=== PATIENT | female | born 1945 | race Caucasian/White ===

== ENCOUNTER 2018-07-22 15:15 | Observation (INO) | payer MEDICAID ==
[~2018-07-22] VITALS: Ht 170.2 cm; Wt 76.4 kg
[~2018-07-22 15:15] MED LIST: ALB0.5V; ALB0.5V INH; ALBU17AE23; ALBU17AE3; ALBUTER; AMIT100T2 PO; ATOR40TA; ATOR40TA PO; AZIT-21; AZTH250C PO; CARB1DRO4; CHOL; CHOLESTIPOL; CLOP75TA PO; CMBV14.7IN; CODE118S2; CRS350T PO; CYCL10TA9; DIPH1TAB25 PO; DIPH1TAB45 PO; FENO145T2 PO; GABA600T PO; GBPN100C; GBPN300C; GNT.3OP5; HCT25T PO; HYDR-2854 PO; HYDR-34 PO; HYDR-3720 PO; HYDR1TAB PO; HYDR1TAB75 PO; HYDR1TAB86 PO; HYOS0.378; IRO; LISI10TA2 PO; LISINOPRIL; LNS30CCR; LORA0.5T PO; METO-354 PO; METO5TAB2; MORP30TA28 PO; MTC5T; NITR-65 PO; NITRO; NITROGLYCERIN; PERCOCET 10/325; PRD20T PO; PRD50T PO; PRED5DRO2I; PREG200C PO; PRM25T; PRM25T PO; PROM12.59; RT-COMBINH IH; SCR1T1; SCR1T1 PO; SUMA100T2 PO; TRAV0.004S; TRAV5DRO2; VALIUM; [UNRECOGNIZED DRUG - OTHER]
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
[2018-07-22 16:52] LABS: CLARITY,URINE CLEAR; COLOR,URINE DK YELLOW; GLUCOSE, URINE (UA) NEGATIVE (NEGATIVE); KETONES,URINE NEGATIVE (NEGATIVE); NITRITE,URINE NEGATIVE (NEGATIVE); PH,URINE 6.5 (5-9); PROTEIN,URINE NEGATIVE (NEGATIVE)
[2018-07-22 16:53] LABS: BILIRUBIN,URINE 1+ (NEGATIVE)
[2018-07-22 16:54] LABS: BACTERIA,URINE NEGATIVE /HPF; LEUKOCYTE ESTERASE ,URINE 2+ (NEGATIVE)
[2018-07-22 17:30] LABS: HEMATOCRIT 35 % (35-52); MEAN CORPUSCULAR HEMOGLOBIN 29 PG (25-34); MEAN CORPUSCULAR HGB CONC 32 G/DL (32-36); MEAN CORPUSCULAR VOLUME 91 FL (80-99); MEAN PLATELET VOLUME 9.7 FL (7.4-10.4); NEUTROPHILS % (AUTO) 72 % (42-75); PLATELET COUNT 223 10^3/uL (130-400); RED CELL DISTRIBUTION WIDTH 13.2 % (10.0-14.5)
[2018-07-22] MEDS ORDERED: cefTRIAXone 1,000 MG/2.86 ml vial (IM ONLY) IM ONE (17:30)
[2018-07-22] MEDS ORDERED: LIDOCAINE 1% INJ 20 ML 20 ML VIAL INJ ONE (17:30)
[2018-07-22 17:31] LABS: BASOPHILS # (AUTO) 0.1 10^3/uL (0.0-0.1); BASOPHILS % (AUTO) 1 % (0-10); EOSINOPHILS # (AUTO) 0.3 10^3/uL (0.0-0.3); EOSINOPHILS % (AUTO) 3 % (0-10); LYMPHOCYTES # (AUTO) 1.5 X 10^3 (1.0-4.0); LYMPHOCYTES % (AUTO) 16 % (12-44); MONOCYTES # (AUTO) 0.7 X 10^3 (0.0-1.0); MONOCYTES % (AUTO) 8 % (0-12); NEUTROPHILS # (AUTO) 6.5 X 10^3 (1.8-7.8)
[2018-07-22 17:52] LABS: BILIRUBIN,TOTAL 0.8 MG/DL (0.1-1.0); CALCIUM 8.8 MG/DL (8.5-10.1); CREATININE SERUM 0.98 MG/DL (0.60-1.30); POTASSIUM 4.2 MMOL/L (3.6-5.0)
[2018-07-22 17:53] LABS: ALBUMIN 3.5 GM/DL (3.2-4.5); TOTAL PROTEIN 6.5 GM/DL (6.4-8.2)
--- NOTE | 2018-07-22 18:37 | NUR ---
REPORT RECEIVED FROM TIO LEIGH AT [facility].
--- NOTE | 2018-07-22 18:40 | NUR ---
15 IV attempts on the patient. LU Somers was notified about the attempts from 2 RNs and Physician. IV access will have to be done in [place].
--- OUTSIDE RECORDS SUMMARY | 2018-07-22 18:45 | XMS REPORT | Clinical Summary ---
Author Author [facility] Organization [facility] Address Unknown Phone Unavailable Care Team Providers Care Hem Marker Name Role Phone PCP Unavailable Allergies Not on File Current Medications Not on file Active Problems Not on file Social History Tobacco Use Types Packs/Day Years Used Date Never Assessed Sex Assigned at Date Recorded Not on file Last Filed Vital Signs Not on file Plan of Treatment Not on file Results Not on filefrom Last 3 Months
--- OUTSIDE RECORDS SUMMARY | 2018-07-22 18:46 | XMS REPORT ---
Author Author Migration, Doctor Organization [facility] Address Unknown Phone Unavailable Care Team Providers Care Information Systems Director Name Role Phone Migration, Doctor Unavailable Unavailable PROBLEMS Type Condition ICD9-CM Code ZDA38-AA Code Onset Dates Condition Status SNOMED Code Problem Loss of weight 783.21 Active 173020201 Problem Unspecified arthropathy, site unspecified 716.90 Active 208128452 Problem Lumbago 724.2 Active 818697847 Problem Depressive disorder, not elsewhere classified 311 Active 61899790 Problem Other abnormal glucose 790.29 Active 058048889 Problem Anxiety state, unspecified 300.00 Active 077894978 Problem Chronic airway obstruction, not elsewhere classified 496 Active 80217669 Problem 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 877659673 Problem Unspecified essential hypertension 401.9 Active 08724365 Problem Migraine, unspecified without mention of intractable migraine without mention of status migrainosus 346.90 Active 06861366 ALLERGIES No Information ENCOUNTERS Encounter Location Date Diagnosis [facility], [place] [address] [address] Mar, [facility] [place] [address] [address] Feb, Arthropathy, unspecified M12.9 [facility], [place] [id number] [place] [address] Feb, [facility] [place] [id number] [place] [address] Jan, [facility] [place] [address] [address] Jan, [facility] [place] [address] [address] Jan, [facility] [place] [address] [address] Oct, 2014 [facility] [place] [facility] [address] [id number] [place] [address] 10 Oct, 2014 Lumbago 724.2 [facility] [place] [facility] [address] [id number] [place] [address] Oct, 2014 [facility] [place] [facility] [address] [id number] [place] [address] 08 Oct, 2014 [facility] [place] [facility] [address] [id number] [place] [address] 08 Oct, 2014 [facility] [place] [facility] [address] [id number] [place] [address] Oct, 2014 [facility] [place] [facility] [address] [id number] [place] [address] Oct, 2014 [facility] [place] [facility] [address] [id number] [place] [address] Oct, 2014 [facility] [place] [facility] [address] [id number] [place] [address] Sep, 2014 [facility] [place] [facility] [address] [id number] [place] [address] Sep, 2014 [facility] [place] [facility] [address] [id number] [place] [address] Aug, 2014 [facility] [place] [facility] [address] [id number] [place] [address] Aug, 2014 [facility] [place] [facility] [address] [id number] [place] [address] Aug, 2014 [facility] [place] [facility] [address] [id number] [place] [address] Aug, 2014 [facility] [place] [facility] [address] [id number] [place] [address] Aug, 2014 [facility] [place] [facility] [address] [id number] [place] [address] Aug2014 [facility] [place] [facility] [address] [facility] [id number], [place] [address] Jul, Unspecified arthropathy, site unspecified 716.90 [facility], [place] [id number] [address] Jul, [facility] [place] [id number], [place] [address] Jul, [facility] [place] [id number], [place] [address] June, Acute bronchitis 466.0 ; Unspecified arthropathy, site unspecified 716.90 and Chronic pain disorder 338.4 [facility], [place] [id number], [place] [address] June, [facility] [place] [id number], [place] [address] June, [facility] [place] [id number], [place] [address] June, [facility] [place] [id number], [place] [address] June, [facility] [place] [id number], [place] [address] May, [facility] [place] [address] [id number] [address] May, [facility], [place] [address] [id number], [place] [address] May, [facility] [address] [id number], [place] [address] Apr, [facility] [id number], [place] [address] Apr, [facility] [address] [id number], [place] [address] Apr, [facility] [place] [id number], [place] [address] 12 Apr, 2014 [facility] [place] [facility] [address] [id number] [place] [address] Apr, 2014 [facility] [place] [facility] [address] [id number] [place] [address] 10 Apr, 2014 [facility] [place] [facility] [address] [facility] [id number] [place] [address] Apr, 2014 [facility] [place] [facility] [address] [id number] [place] [address] Apr, [facility] [place] [facility] [address] [id number] [place] [address] 24 Mar, 2014 [facility] [place] [facility] [address] [facility] [id number] [place] [address] 24 Mar, 2014 [facility] [place] [facility] [address] [facility] [id number] [place] [address] 17 Mar, 2014 [facility] [place] [facility] [address] [facility] [id number] [place] [address] 17 Mar, 2014 [facility] [place] [facility] [address] [facility] [id number] [place] [address] 17 Mar, 2014 [facility] [place] [facility] [address] [facility] [id number] [place] [address] 17 Mar, 2014 [facility] [place] [facility] [address] [facility] [id number] [place] [address] 13 Mar, 2014 [facility] [place] [facility] [address] [facility] [id number] [place] [address] 13 Mar, 2014 [facility] [place] [facility] [address] [facility] [id number] [place] [address] 13 Mar, 2014 [facility] [place] [facility] [address] [facility] [id number] [place] [address] 13 Mar, 2014 [facility] [place] [facility] [address] [facility] [id number] [place] [address] Mar, [facility] [place] [facility] [address] [id number] [place] [address] Mar, [facility] [place] [facility] [address] [id number] [place] [address] Mar, [facility] [place] [facility] [address] [id number] [place] [address] Mar, [facility] [place] [facility] [address] [id number] [place] [address] Mar, [facility] [place] [facility] [address] [id number] [place] [address] Feb, [facility] [place] [facility] [address] [id number] [place] [address] Feb, [facility] [place] [facility] [address] [id number] [place] [address] Feb, [facility] [place] [facility] [address] [id number] [place] [address] Feb, [facility] [place] [facility] [address] [id number] [place] [address] Feb, [facility] [place] [facility] [address] [id number] [place] [address] Feb, [facility] [place] [facility] [address] [id number] [place] [address] Feb, [facility] [place] [facility] [address] [id number], [place] [address] Feb, [facility] [place] [facility] [address] [id number] [place] [address] Feb, [facility] [place] [facility] [address] [id number] [place] [address] Feb, [facility] [place] [facility] [address] [id number] [place] [address] Feb, [facility] [place] [facility] [address] [id number] [place] [address] Jan, [facility] [address] [id number] [place] [address] Jan, [facility] [address] [id number] [place] [address] 15 Jan, 2014 [facility] [address] [id number] [place] [address] 15 Jan, 2014 [facility] [address] [id number] [place] [address] 15 Jan, 2014 [facility] [address] [id number] [place] [address] Jan, [facility] [address] [id number] [place] [address] Jan, [facility] [address] [id number] [place] [address] Jan, [facility] [address] [id number] [place] [address] Jan, [facility] [address] [id number] [place] [address] Jan, [facility] [address] [id number] [place] [address] Jan, [facility] [place] [facility] [address] [id number] [place] [address] Jan, [facility] [place] [facility] [address] [id number] [place] [address] Jan, [facility] [place] [facility] [address] [id number] [place] [address] Jan, [facility] [place] [facility] [address] [id number] [place] [address] Jan, [facility] [place] [facility] [address] [id number] [place] [address] Dec, [facility] [place] [facility] [address] [id number] [place] [address] Dec, [facility] [place] [facility] [address] [id number] [place] [address] Dec, [facility] [place] [facility] [address] [id number] [place] [address] Dec, [facility] [place] [facility] [address] [id number] [place] [address] Dec, [facility] [place] [facility] [address] [id number] [place] [address] Dec, [facility] [place] [facility] [address] [id number] [place] [address] Dec, [facility] [place] [facility] [address] [id number] [place] [address] Dec, [facility] [place] [facility] [address] [id number] [place] [address] Dec, [facility] [place] [facility] [address] [id number] [place] [address] Dec, [facility] [place] [facility] [address] [id number] [place] [address] Dec, [facility] [place] [facility] [address] [id number] [place] [address] Dec, [facility] [place] [facility] [address] [id number], [place] [address] Dec, [facility] [place] [facility] [address] [id number] [place] [address] Dec, [facility] [place] [facility] [address] [id number] [place] [address] Dec, [facility] [place] [facility] [address] [id number], [place] [address] Dec, [facility] [place] [facility] [address] [id number], [place] [address] Dec, [facility] [place] [facility] [address] [id number] [place] [address] Dec, [facility] [place] [facility] [address] [id number] [place] [address] Dec, [facility] [place] [facility] [address] [id number] [place] [address] Dec, [facility] [place] [facility] [address] [id number] [place] [address] Nov, [facility] [place] [facility] [address] [id number] [place] [address] Nov, [facility] [place] [facility] [address] [id number] [place] [address] Nov, [facility] [place] [facility] [address] [id number] [place] [address] Nov, [facility] [place] [facility] [address] [id number] [place] [address] 15 Nov, 2013 [facility] [place] [facility] [address] [id number] [place] [address] Nov, [facility] [place] [facility] [address] [id number] [place] [address] Nov, [facility] [place] [facility] [address] [id number], [place] [address] Nov, [facility] [place] [facility] [address] [id number], [place] [address] Nov, [facility] [place] [facility] [address] [id number] [place] [address] Nov, [facility] [place] [facility] [address] [id number], [place] [address] Nov, [facility] [place] [facility] [address] [id number] [place] [address] Nov, [facility] [place] [facility] [address] [id number] [place] [address] 22 Oct, 2013 [facility] [place] [facility] [address] [id number] [place] [address] 22 Oct, 2013 [facility] [place] [facility] [address] [id number] [place] [address] 19 Oct, 2013 [facility] [place] [facility] [address] [id number] [place] [address] 19 Oct, 2013 [facility] [place] [facility] [address] [id number] [place] [address] 17 Oct, 2013 [facility] [place] [facility] [address] [id number] [place] [address] 17 Oct, 2013 [facility] [place] [facility] [address] [id number] [place] [address] 16 Oct, 2013 [facility] [place] [facility] [address] [id number] [place] [address] 16 Oct, 2013 [facility] [place] [facility] [address] [id number] [place] [address] Oct, 2013 [facility] [place] [facility] [address] [id number] [place] [address] Oct, 2013 [facility] [place] [facility] [address] [id number] [place] [address] Sep, [facility] [place] [facility] [address] [id number] [place] [address] Sep, [facility] [place] [facility] [address] [id number] [place] [address] Sep, [facility] [place] [facility] [address] [id number] [place] [address] Sep, [facility] [place] [facility] [address] [id number] [place] [address] Sep, [facility] [place] [facility] [address] [id number] [place] [address] Sep, [facility] [place] [facility] [address] [id number] [place] [address] Sep, [facility] [place] [facility] [address] [id number] [place] [address] Sep, [facility] [place] [facility] [address] [id number] [place] [address] Sep, [facility] [place] [facility] [address] [id number] [place] [address] Sep, [facility] [place] [facility] [address] [id number] [place] [address] Sep, [facility] [place] [facility] [address] [id number] [place] [address] Sep, [facility] [place] [facility] [address] [id number] [place] [address] Sep, [facility] [place] [facility] [address] [id number] [place] [address] Sep, [facility] [place] [facility] [address] [id number] [place] [address] Aug, [facility] [place] [facility] [address] [id number] [place] [address] Aug, [facility] [place] [facility] [address] [id number] [place] [address] Aug, [facility] [place] [facility] [address] [id number] [place] [address] Aug, [facility] [place] [facility] [address] [id number] [place] [address] Aug, [facility] [place] [facility] [address] [id number] [place] [address] Aug, [facility] [place] [facility] [address] [id number] [place] [address] Aug, [facility] [place] [facility] [address] [id number] [place] [address] Aug, [facility] [place] [facility] [address] [id number] [place] [address] Aug, [facility] [place] [facility] [address] [id number] [place] [address] Aug, [facility] [place] [facility] [address] [id number] [place] [address] Aug, [facility] [place] [facility] [address] [id number] [place] [address] Jul, [facility] [place] [facility] [address] [id number] [place] [address] Jul, [facility] [place] [facility] [address] [id number] [place] [address] Jul, [facility] [place] [facility] [address] [id number] [place] [address] Jul, [facility] [place] [facility] [address] [id number] [place] [address] Jul, [facility] [place] [facility] [address] [id number] [place] [address] Jul, [facility] [place] [facility] [address] [id number] [place] [address] Jul, [facility] [place] [facility] [address] [id number] [place] [address] Jul, [facility] [place] [facility] [address] [id number] [place] [address] Jul, [facility] [place] [facility] [address] [id number] [place] [address] Jul, [facility] [place] [facility] [address] [id number] [place] [address] June, [facility] [place] [facility] [address] [id number] [place] [address] June, [facility] [place] [facility] [address] [id number] [place] [address] June, [facility] [address] [id number] [place] [address] June, [facility] [place] [facility] [address] [id number] [place] [address] June, [facility] [place] [facility] [address] [id number] [place] [address] June, [facility] [address] [id number] [place] [address] June, [facility] [place] [facility] [address] [id number] [place] [address] June, [facility] [address] [id number] [place] [address] June, [facility] [address] [id number] [place] [address] June, [facility] [address] [id number] [place] [address] June, [facility] [place] [facility] [address] [id number] [place] [address] June, [facility] [place] [facility] [address] [id number] [place] [address] June, [facility] [place] [facility] [address] [id number] [place] [address] June, [facility] [place] [facility] [address] [id number] [place] [address] June, [facility] [place] [facility] [address] [id number] [place] [address] June, [facility] [place] [facility] [address] [id number] [place] [address] June, [facility] [place] [facility] [address] [id number] [place] [address] May, [facility] [place] [facility] [address] [id number] [place] [address] May, [facility] [place] [facility] [address] [id number] [place] [address] May, [facility] [place] [facility] [address] [id number] [place] [address] May, [facility] [place] [facility] [address] [id number] [place] [address] May, [facility] [place] [facility] [address] [id number] [place] [address] May, [facility] [place] [facility] [address] [id number] [place] [address] May, [facility] [place] [facility] [address] [id number] [place] [address] May, [facility] [place] [facility] [address] [id number] [place] [address] May, [facility] [place] [facility] [address] [id number] [place] [address] May, [facility] [place] [facility] [address] [id number] [place] [address] Apr, [facility] [place] [facility] [address] [id number] [place] [address] Apr, [facility] [place] [facility] [address] [id number] [place] [address] Apr, [facility] [place] [facility] [address] [id number] [place] [address] Apr, [facility] [place] [facility] [address] [id number] [place] [address] Apr, [facility] [place] [facility] [address] [id number] [place] [address] Apr, [facility] [place] [facility] [address] [id number] [place] [address] 13 Apr, 2013 [facility] [place] [facility] [address] [id number] [place] [address] 13 Apr, 2013 [facility] [place] [facility] [address] [id number] [place] [address] 07 Apr, 2013 [facility] [place] [facility] [address] [id number] [place] [address] Apr, [facility] [place] [facility] [address] [id number] [place] [address] Mar, [facility] [place] [facility] [address] [id number] [place] [address] Mar, [facility] [place] [facility] [address] [facility] [id number] [place] [address] Mar, [facility] [place] [facility] [address] [id number] [place] [address] Mar, [facility] [place] [facility] [address] [id number] [place] [address] Mar, [facility] [place] [facility] [address] [facility] [id number] [place] [address] Mar, [facility] [place] [facility] [address] [facility] [id number] [place] [address] Mar, [facility] [place] [facility] [address] [facility] [id number] [place] [address] Mar, [facility] [place] [facility] [address] [facility] [id number] [place] [address] Mar, [facility] [place] [facility] [address] [id number] [place] [address] Mar, [facility] [place] [facility] [address] [facility] [id number] [place] [address] 07 Mar, 2013 [facility] [place] [facility] [address] [facility] [id number] [place] [address] Mar, [facility] [address] [id number] [place] [address] Mar, [facility] [place] [facility] [address] [id number] [place] [address] Feb, [facility] [place] [facility] [address] [id number] [place] [address] Feb, [facility] [place] [facility] [address] [id number] [place] [address] Feb, [facility] [place] [facility] [address] [id number] [place] [address] Feb, [facility] [place] [facility] [address] [id number] [place] [address] Feb, [facility] [place] [facility] [address] [id number] [place] [address] Feb, [facility] [place] [facility] [address] [id number] [place] [address] Feb, [facility] [place] [facility] [address] [id number] [place] [address] Feb, [facility] [place] [facility] [address] [id number] [place] [address] Feb, [facility] [place] [facility] [address] [id number] [place] [address] Feb, [facility] [place] [facility] [address] [id number] [place] [address] Jan, [facility] [place] [facility] [address] [id number] [place] [address] Jan, [facility] [place] [facility] [address] [id number] [place] [address] Jan, [facility] [place] [facility] [address] [id number] [place] [address] Jan, [facility] [place] [facility] [address] [id number] [place] [address] Jan, [facility] [address] [id number] [place] [address] Jan, [facility] [place] [facility] [address] [id number] [place] [address] Jan, [facility] [address] [id number] [place] [address] Jan, [facility] [place] [facility] [address] [id number] [place] [address] Jan, [facility] [address] [id number] [place] [address] Jan, [facility] [place] [facility] [address] [id number] [place] [address] Jan, [facility] [place] [facility] [address] [id number] [place] [address] Jan, [facility] [address] [id number] [place] [address] Jan, [facility] [place] [facility] [address] [id number] [place] [address] Jan, [facility] [place] [facility] [address] [id number] [place] [address] Jan, [facility] [place] [facility] [address] [id number] [place] [address] Jan, [facility] [place] [facility] [address] [id number] [place] [address] Dec, [facility] [place] [facility] [address] [id number] [place] [address] Dec, [facility] [place] [facility] [address] [id number] [place] [address] Dec, [facility] [place] [facility] [address] [id number] [place] [address] Dec, [facility] [place] [facility] [address] [id number] [place] [address] 15 Dec, 2012 [facility] [place] [facility] [address] [id number] [place] [address] 15 Dec, 2012 [facility] [place] [facility] [address] [id number] [place] [address] Dec, [facility] [place] [facility] [address] [id number] [place] [address] Dec, [facility] [place] [facility] [address] [id number] [place] [address] Dec, [facility] [place] [facility] [address] [id number] [place] [address] Dec, [facility] [place] [facility] [address] [id number] [place] [address] Nov, [facility] [place] [facility] [address] [id number], [place] [address] 30 Nov, 2012 [facility] [place] [facility] [address] [id number] [place] [address] Nov, [facility] [place] [facility] [address] [id number], [place] [address] Nov, [facility] [place] [facility] [address] [id number], [place] [address] 18 Nov, 2012 [facility] [place] [facility] [address] [id number], [place] [address] 18 Nov, 2012 [facility] [place] [facility] [address] [id number] [place] [address] 14 Nov, 2012 [facility] [place] [facility] [address] [id number], [place] [address] 14 Nov, 2012 [facility] [place] [facility] [address] [id number], [place] [address] 09 Nov, 2012 [facility] [place] [facility] [address] [id number] [place] [address] 09 Nov, 2012 [facility] [address] [id number] [place] [address] 07 Nov, 2012 [facility] [place] [facility] [address] [id number] [place] [address] 05 Nov, 2012 [facility] [place] [facility] [address] [id number] [place] [address] 20 Oct, 2012 [facility] [place] [facility] [address] [id number] [place] [address] 20 Oct, 2012 [facility] [place] [facility] [address] [id number] [place] [address] 19 Oct, 2012 [facility] [place] [facility] [address] [id number] [place] [address] 18 Oct, 2012 [facility] [address] [id number] [place] [address] 13 Oct, 2012 [facility] [place] [facility] [address] [id number] [place] [address] 05 Oct, 2012 [facility] [place] [facility] [address] [id number] [place] [address] 04 Oct, 2012 [facility] [place] [facility] [address] [id number] [place] [address] 28 Sep, 2012 [facility] [place] [facility] [address] [id number] [place] [address] Sep, [facility] [place] [facility] [address] [id number] [place] [address] Sep, [facility] [place] [facility] [address] [id number] [place] [address] Sep, [facility] [place] [facility] [address] [id number] [place] [address] Sep, [facility] [place] [facility] [address] [id number] [place] [address] 08 Sep, 2012 [facility] [place] [facility] [address] [id number] [place] [address] Sep, [facility] [place] [facility] [address] [id number] [place] [address] Aug, [facility] [place] [facility] [address] [id number] [place] [address] Aug, [facility] [place] [facility] [address] [id number] [place] [address] Aug, [facility] [place] [facility] [address] [id number] [place] [address] Aug, [facility] [place] [facility] [address] [id number] [place] [address] Aug, [facility] [place] [facility] [address] [id number] [place] [address] Aug, [facility] [place] [facility] [address] [id number] [place] [address] Aug, [facility] [place] [facility] [address] [id number] [place] [address] Aug, [facility] [place] [facility] [address] [id number] [place] [address] Aug, [facility] [place] [facility] [address] [id number] [place] [address] Jul, [facility] [place] [facility] [address] [id number] [place] [address] Jul, [facility] [place] [facility] [address] [id number] [place] [address] Jul, [facility] [place] [facility] [address] [id number] [place] [address] Jul, [facility] [place] [facility] [address] [id number] [place] [address] Jul, [facility] [place] [facility] [address] [id number] [place] [address] Jul, [facility] [address] [id number] [place] [address] Jul, [facility] [address] [id number] [place] [address] June, [facility] [address] [id number] [place] [address] June, [facility] [address] [id number] [place] [address] June, [facility] [address] [id number] [place] [address] June, [facility] [address] [id number] [place] [address] June, [facility] [address] [id number] [place] [address] June, [facility] [address] [id number] [place] [address] June, [facility] [address]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
--- OUTSIDE RECORDS SUMMARY | 2018-07-22 18:46 | XMS REPORT | Clinical Summary ---
Author Author [facility] Organization [facility] Address Unknown Phone Unavailable Care Team Providers Care Photogrammetric Stereo Compiler Name Role Phone Molly Rossi RN Unavailable Unavailable Dino French MD Unavailable Unavailable Kelsey Collins MD Unavailable Gabbi Manley PA-C Unavailable Santiago Concepcion DO Unavailable Unavailable Edis Richard MD PCP Chinedu Holland PHYS ASST Unavailable Source Comments Some departments are not documenting in the electronic medical record. If you d o not see the information that you expected, contact Release of Information in [facility] Information Management department at [phone] for further assistan ce in locating additional records.[facility] Allergies Comments Active Allergy Reactions Severity Noted Date Aspirin STOMACH 11/02/2009 UPSET, NAUSEA AND VOMITING Throat swelling Jsvmwj-Lxnlrqwn-Ptyoblk ANAPHYLAXIS 03/08/2009 Pregabalin SHORTNESS OF Medium 09/13/2015 BREATH Bleeding in the stomach Nsaids (Non-Steroidal SEE COMMENTS 03/08/2009 Anti-Inflammatory Drug) Pt states she has "a violent reaction" to this medication but she is not sure what the reaction is. Penicillins UNKNOWN Low 03/08/2009 Sulfa (Sulfonamide HIVES 03/08/2009 Antibiotics) Throat swelling Tramadol ANAPHYLAXIS 03/08/2009 Throat swelling Trazodone ANAPHYLAXIS 03/08/2009 Rofecoxib SHORTNESS OF 03/08/2009 BREATH, SYNCOPE Medications End Date Status Medication Sig Dispensed Refills Start Date Active promethazine (PHENERGAN) Take 25 mg by 0 25 mg tablet mouth three times daily as needed for Nausea. Active albuterol (PROVENTIL; Inhale 1 Puff 0 VENTOLIN) 90 by mouth As mcg/Actuation IN inhaler Needed for Wheezing. Active sumatriptan (IMITREX) 100 Take 100 mg 0 mg PO tablet by mouth daily as needed for Migraine symptoms. (max dose of 200mg per day) Active clopiDOGrel (PLAVIX) 75 Take 75 mg by 0 mg tablet mouth daily. Active diphenoxylate/atropine Take 2 Tabs 0 (LOMOTIL) 2.5/0.025 mg by mouth four tablet times daily as needed for Diarrhea. Active pantoprazole DR Take 40 mg by 0 (PROTONIX) 40 mg tablet mouth daily. Active cetirizine (ZYRTEC) 10 mg Take 10 mg by 0 tablet mouth daily as needed. Active gabapentin (NEURONTIN) Take 600 mg 0 300 mg capsule by mouth three times daily. Active hydrOXYzine (ATARAX) 25 Take 25 mg by 0 mg tablet mouth four times daily as needed for Itching. Active nitroglycerin Take 1 [place] 0 (NITROLINGUAL) 400 by mouth mcg/spray translingual every 5 spray minutes as needed. Active LORazepam (ATIVAN) 1 mg Take 1/2 0 tablet tablet in morning and 1 tablet in evening Active albuterol 0.5% Inhale 2.5 mg 0 (PROVENTIL; VENTOLIN) 2.5 solution by mg/0.5 mL nebu nebulizer nebulizer as solution directed every 6 hours as needed. Active lisinopril (PRINIVIL; Take 1 Tab by 0 ZESTRIL) 10 mg tablet mouth daily. 6 Active acetaminophen (TYLENOL) Take 2 Tabs 0 325 mg tablet by mouth four 6 times daily. AFTER one week taking it as scheduled, you may transition to use as needed. Do not take more than 4 grams (4,000 mg) in 24 hours. Active oxyCODONE (ROXICODONE, Take 1-2 Tabs 50 Tab 0 OXY-IR) 5 mg by mouth 6 tabletIndications: Hip every 4 hours joint replacement status as needed for Pain Earliest Fill Date: 12/06/15 Active prednisone (DELTASONE) 20 0 07/04/201 mg tablet 7 Active LEVOFLOXACIN (LEVAQUIN Take by 0 PO) mouth. Active Problems Problem Noted Date TMJ arthritis 07/11/2016 Meniere disease 07/11/2016 Hearing loss, neural 07/11/2016 Migraine 10/26/2015 Anxiety 10/26/2015 Back pain 10/26/2015 GERD (gastroesophageal reflux disease) 10/26/2015 Hip pain 10/26/2015 HTN (hypertension) 10/26/2015 Asthma 10/26/2015 Degenerative joint disease (DJD) of hip 10/26/2015 Status post total replacement of left hip 10/26/2015 Pre-operative clearance 06/09/2015 Hyperlipidemia 06/09/2015 Essential hypertension with goal blood pressure less than 140/90 06/09/2015 Angina pectoris, unspecified 06/09/2015 Cervical spinal stenosis 11/30/2009 Family History Medical History Relation Name Comments Cancer Brother Diabetes Brother Heart Attack Brother Hypertension Brother Heart Attack Father Hypertension Father Cancer Maternal Aunt Diabetes Maternal Aunt Heart Attack Maternal Grandfather Hypertension Maternal Grandfather Arthritis-osteo Maternal Grandmother Diabetes Maternal Grandmother Cancer Maternal Uncle Cancer Mother Diabetes Mother Arthritis-osteo Sister Arthritis-rheumatoid Sister Diabetes Sister Osteoporosis Sister Relation Name Status Comments Brother Father Maternal Aunt Maternal Grandfather Maternal Grandmother Maternal Uncle Mother Sister Social History Date Tobacco Use Types Packs/Day Years Used Never Smoker Smokeless Tobacco: Never Used Tobacco Cessation: Counseling Given: Yes Alcohol Use Drinks/Week oz/Week Comments Yes 0 Standard 0.0 drinks or equivalent Sex Assigned at Date Recorded Not on file Industry Job Start Date Occupation Not on file Not on file Not on file Travel End Travel History Travel Start No recent travel history available. 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 Respiratory Rate 16 03/08/2016 10:46 AM HEALTH ADMINISTRATOR Oxygen Saturation 100% - Inhaled Oxygen - Concentration 07/11/2016 1:44 PM CDT Weight 64.5 kg (142 lb 3.2 oz) 07/11/2016 1:44 PM CDT Height 170.2 cm (5' 7") 07/11/2016 1:44 PM CDT Body Mass Index 22.27 Plan of Treatment Health Maintenance Due Date Last Done Comments HEPATITIS C SCREENING 1944 PHYSICAL (COMPREHENSIVE) 09/22/1951 EXAM DTAP/TDAP VACCINES (1 - 1962 Tdap) BREAST CANCER SCREENING 1984 COLORECTAL CANCER 1994 SCREENING SHINGLES RECOMBINANT 1994 VACCINE (1 of 2) OSTEOPOROSIS 2009 SCREENING/MONITORING PNEUMONIA (PCV13/PPSV23) 2009 VACCINES (1 of 2 - PCV13) INFLUENZA VACCINE 11/10/2018 Implants Device Identifier Shelf Expiration Date Model / Serial / Lot Implanted Type Area Manufactur er 07/10/2025 [id number] / [id number] / [id number] Eliminator Hole Duraloc [place] Left: Hip JandJ:DEPU Hip [place] Positive Stop Y:DEPUY Implanted: Qty: 1 on 10/26/2015 by Kelsey Mcarthur MD 07/10/2020 [id number] / [id number] / [id number] Insert Acetabular 52mm 36mm +4mm Left: Hip JandJ:DEPU Neutral Altrx [place] Y:DEPUY Implanted: Qty: 1 on 10/26/2015 by Kelsey Mcarthur MD 07/10/2025 [id number] / [id number] / [id number] Shell Acetabular 52mm Hip Sector Left: Hip JandJ:DEPU [place] Y:DEPUY Implanted: Qty: 1 on 10/26/2015 by Kelsey Mcarthur MD 03/12/2025 [id number] / 1217-25-500 / [id number] Screw Acetabular 25mm 6.5mm D[place] 4 Left: Hip JandJ:DEPU Point Cut Flute Hip Y:DEPUY Implanted: Qty: 1 on 10/26/2015 by Kelsey Mcarthur MD 09/09/2025 [id number] / 1570-01-120 / [id number] Stem Femoral Cementless [place] Left: Hip JandJ:DEPU [place] 6 01/23 Standard Y:DEPUY Implanted: Qty: 1 on 10/26/2015 by ORTHOPEDIC Kelsey Collins MD 07/10/2020 [id number] / 1365-51-000 / [id number] Head Femoral +1.5mm 01/23 Taper Left: Hip JandJ:DEPU 36mm Hip Cementless No Skirt Y:DEPUY Implanted: Qty: 1 on 10/26/2015 by ORTHOPEDIC Kelsey Collins MD Results Not on filefrom Last 3 Months Advance Directives Patient has advance care planning documents, and code status on file. For more i nformation, please contact: [address] [id number] Date Inactivated Comments Code Status Date Activated 10/31/2015 9:55 PM Full Code 10/26/2015 10:20 PM Provider has discussed Code Status No, discussion not w/Patient or Family? necessary based on Dx 11/25/2009 4:42 PM Full Code 11/23/2009 6:47 PM
--- OUTSIDE RECORDS SUMMARY | 2018-07-22 18:47 | XMS REPORT ---
Author Author Migration, Doctor Organization [facility] Address Unknown Phone Unavailable Care Team Providers Care Chain Dyer Name Role Phone Migration, Doctor Unavailable Unavailable PROBLEMS Type Condition ICD9-CM Code VIN86-DB Code Onset Dates Condition Status SNOMED Code Problem Loss of weight 783.21 Active 655076905 Problem Unspecified arthropathy, site unspecified 716.90 Active 474557927 Problem Lumbago 724.2 Active 518619008 Problem Depressive disorder, not elsewhere classified 311 Active 90507866 Problem Other abnormal glucose 790.29 Active 024068779 Problem Anxiety state, unspecified 300.00 Active 550944884 Problem Chronic airway obstruction, not elsewhere classified 496 Active 89612188 Problem 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 674131282 Problem Unspecified essential hypertension 401.9 Active 92096610 Problem Migraine, unspecified without mention of intractable migraine without mention of status migrainosus 346.90 Active 83808572 ALLERGIES No Information ENCOUNTERS Encounter Location Date Diagnosis [facility] [address] [address] Mar, [facility] [address] [address] Feb, Arthropathy, unspecified M12.9 [facility] [id number] [place] [address] Feb, [facility] [id number] [place] [address] Jan, [facility] [address] [address] Jan, [facility] [address] [address] Jan, [facility] [address] [address] Oct, 2014 [facility] [place] [facility] [address] [id number] [place] [address] 10 Oct, 2014 Lumbago 724.2 [facility] [place] [facility] [address] [id number] [place] [address] Oct, 2014 [facility] [place] [facility] [address] [id number] [place] [address] 08 Oct, 2014 [facility] [place] [facility] [address] [id number] [place] [address] 08 Oct, 2014 [facility] [place] [facility] [address] [id number] [place] [address] Oct, 2014 [facility] [place] [facility] [address] [id number] [place] [address] Oct, 2014 [facility] [place] [facility] [address] [id number] [place] [address] Oct, 2014 [facility] [place] [facility] [address] [id number] [place] [address] Sep, 2014 [facility] [place] [facility] [address] [id number] [place] [address] Sep, 2014 [facility] [place] [facility] [address] [id number] [place] [address] Aug, 2014 [facility] [place] [facility] [address] [id number] [place] [address] Aug, 2014 [facility] [place] [facility] [address] [id number] [place] [address] Aug, 2014 [facility] [place] [facility] [address] [id number] [place] [address] Aug, 2014 [facility] [place] [facility] [address] [id number] [place] [address] Aug, 2014 [facility] [place] [facility] [address] [id number] [place] [address] Aug2014 [facility] [place] [facility] [address] [facility] [id number] [address] Jul, Unspecified arthropathy, site unspecified 716.90 [facility] [address] [address] Jul, [facility] [address] [address] Jul, [facility] [address] [address] June, Acute bronchitis 466.0 ; Unspecified arthropathy, site unspecified 716.90 and Chronic pain disorder 338.4 [facility] [address] [address] June, [facility] [address] [address] June, [facility] [address] [address] June, [facility] [address] [address] June, [facility] [address] [address] May, [facility] [address] [id number] [address] May, [facility] [address] [id number] [address] May, [facility] [address] [id number] [address] Apr, [facility] [address] [address] Apr, [facility] [address] [id number] [address] Apr, [facility] [address] [address] 12 Apr, 2014 [facility] [place] [facility] [address] [id number] [place] [address] Apr, 2014 [facility] [place] [facility] [address] [id number] [place] [address] 10 Apr, 2014 [facility] [place] [facility] [address] [facility] [id number] [place] [address] Apr, 2014 [facility] [place] [facility] [address] [id number] [place] [address] Apr, [facility] [place] [facility] [address] [id number] [place] [address] 24 Mar, 2014 [facility] [place] [facility] [address] [facility] [id number] [place] [address] 24 Mar, 2014 [facility] [place] [facility] [address] [facility] [id number] [place] [address] 17 Mar, 2014 [facility] [place] [facility] [address] [facility] [id number] [place] [address] 17 Mar, 2014 [facility] [place] [facility] [address] [facility] [id number] [place] [address] 17 Mar, 2014 [facility] [place] [facility] [address] [facility] [id number] [place] [address] 17 Mar, 2014 [facility] [place] [facility] [address] [facility] [id number] [place] [address] 13 Mar, 2014 [facility] [place] [facility] [address] [facility] [id number] [place] [address] 13 Mar, 2014 [facility] [place] [facility] [address] [facility] [id number] [place] [address] 13 Mar, 2014 [facility] [place] [facility] [address] [facility] [id number] [place] [address] 13 Mar, 2014 [facility] [place] [facility] [address] [facility] [id number] [place] [address] Mar, [facility] [place] [facility] [address] [id number] [place] [address] Mar, [facility] [place] [facility] [address] [id number] [place] [address] Mar, [facility] [place] [facility] [address] [id number] [place] [address] Mar, [facility] [place] [facility] [address] [id number] [place] [address] Mar, [facility] [place] [facility] [address] [id number] [place] [address] Feb, [facility] [place] [facility] [address] [id number] [place] [address] Feb, [facility] [place] [facility] [address] [id number] [place] [address] Feb, [facility] [place] [facility] [address] [id number] [place] [address] Feb, [facility] [place] [facility] [address] [id number] [place] [address] Feb, [facility] [place] [facility] [address] [id number] [place] [address] Feb, [facility] [place] [facility] [address] [id number] [place] [address] Feb, [facility] [place] [facility] [address] [id number] [address] Feb, [facility] [place] [facility] [address] [id number] [place] [address] Feb, [facility] [place] [facility] [address] [id number] [place] [address] Feb, [facility] [place] [facility] [address] [id number] [place] [address] Feb, [facility] [place] [facility] [address] [id number] [place] [address] Jan, [facility] [address] [id number] [place] [address] Jan, [facility] [address] [id number] [place] [address] 15 Jan, 2014 [facility] [address] [id number] [place] [address] 15 Jan, 2014 [facility] [address] [id number] [place] [address] 15 Jan, 2014 [facility] [address] [id number] [place] [address] Jan, [facility] [address] [id number] [place] [address] Jan, [facility] [address] [id number] [place] [address] Jan, [facility] [address] [id number] [place] [address] Jan, [facility] [address] [id number] [place] [address] Jan, [facility] [address] [id number] [place] [address] Jan, [facility] [place] [facility] [address] [id number] [place] [address] Jan, [facility] [place] [facility] [address] [id number] [place] [address] Jan, [facility] [place] [facility] [address] [id number] [place] [address] Jan, [facility] [place] [facility] [address] [id number] [place] [address] Jan, [facility] [place] [facility] [address] [id number] [place] [address] Dec, [facility] [place] [facility] [address] [id number] [place] [address] Dec, [facility] [place] [facility] [address] [id number] [place] [address] Dec, [facility] [place] [facility] [address] [id number] [place] [address] Dec, [facility] [place] [facility] [address] [id number] [place] [address] Dec, [facility] [place] [facility] [address] [id number] [place] [address] Dec, [facility] [place] [facility] [address] [id number] [place] [address] Dec, [facility] [place] [facility] [address] [id number] [place] [address] Dec, [facility] [place] [facility] [address] [id number] [place] [address] Dec, [facility] [place] [facility] [address] [id number] [place] [address] Dec, [facility] [place] [facility] [address] [id number] [place] [address] Dec, [facility] [place] [facility] [address] [id number] [place] [address] Dec, [facility] [place] [facility] [address] [id number] [address] Dec, [facility] [place] [facility] [address] [id number] [place] [address] Dec, [facility] [place] [facility] [address] [id number] [place] [address] Dec, [facility] [place] [facility] [address] [id number] [address] Dec, [facility] [place] [facility] [address] [id number] [address] Dec, [facility] [place] [facility] [address] [id number] [place] [address] Dec, [facility] [place] [facility] [address] [id number] [place] [address] Dec, [facility] [place] [facility] [address] [id number] [place] [address] Dec, [facility] [place] [facility] [address] [id number] [place] [address] Nov, [facility] [place] [facility] [address] [id number] [place] [address] Nov, [facility] [place] [facility] [address] [id number] [place] [address] Nov, [facility] [place] [facility] [address] [id number] [place] [address] Nov, [facility] [place] [facility] [address] [id number] [place] [address] 15 Nov, 2013 [facility] [place] [facility] [address] [id number] [place] [address] Nov, [facility] [place] [facility] [address] [id number] [place] [address] Nov, [facility] [place] [facility] [address] [id number] [address] Nov, [facility] [place] [facility] [address] [id number] [address] Nov, [facility] [place] [facility] [address] [id number] [place] [address] Nov, [facility] [place] [facility] [address] [id number] [address] Nov, [facility] [place] [facility] [address] [id number] [place] [address] Nov, [facility] [place] [facility] [address] [id number] [place] [address] 22 Oct, 2013 [facility] [place] [facility] [address] [id number] [place] [address] 22 Oct, 2013 [facility] [place] [facility] [address] [id number] [place] [address] 19 Oct, 2013 [facility] [place] [facility] [address] [id number] [place] [address] 19 Oct, 2013 [facility] [place] [facility] [address] [id number] [place] [address] 17 Oct, 2013 [facility] [place] [facility] [address] [id number] [place] [address] 17 Oct, 2013 [facility] [place] [facility] [address] [id number] [place] [address] 16 Oct, 2013 [facility] [place] [facility] [address] [id number] [place] [address] 16 Oct, 2013 [facility] [place] [facility] [address] [id number] [place] [address] Oct, 2013 [facility] [place] [facility] [address] [id number] [place] [address] Oct, 2013 [facility] [place] [facility] [address] [id number] [place] [address] Sep, [facility] [place] [facility] [address] [id number] [place] [address] Sep, [facility] [place] [facility] [address] [id number] [place] [address] Sep, [facility] [place] [facility] [address] [id number] [place] [address] Sep, [facility] [place] [facility] [address] [id number] [place] [address] Sep, [facility] [place] [facility] [address] [id number] [place] [address] Sep, [facility] [place] [facility] [address] [id number] [place] [address] Sep, [facility] [place] [facility] [address] [id number] [place] [address] Sep, [facility] [place] [facility] [address] [id number] [place] [address] Sep, [facility] [place] [facility] [address] [id number] [place] [address] Sep, [facility] [place] [facility] [address] [id number] [place] [address] Sep, [facility] [place] [facility] [address] [id number] [place] [address] Sep, [facility] [place] [facility] [address] [id number] [place] [address] Sep, [facility] [place] [facility] [address] [id number] [place] [address] Sep, [facility] [place] [facility] [address] [id number] [place] [address] Aug, [facility] [place] [facility] [address] [id number] [place] [address] Aug, [facility] [place] [facility] [address] [id number] [place] [address] Aug, [facility] [place] [facility] [address] [id number] [place] [address] Aug, [facility] [place] [facility] [address] [id number] [place] [address] Aug, [facility] [place] [facility] [address] [id number] [place] [address] Aug, [facility] [place] [facility] [address] [id number] [place] [address] Aug, [facility] [place] [facility] [address] [id number] [place] [address] Aug, [facility] [place] [facility] [address] [id number] [place] [address] Aug, [facility] [place] [facility] [address] [id number] [place] [address] Aug, [facility] [place] [facility] [address] [id number] [place] [address] Aug, [facility] [place] [facility] [address] [id number] [place] [address] Jul, [facility] [place] [facility] [address] [id number] [place] [address] Jul, [facility] [place] [facility] [address] [id number] [place] [address] Jul, [facility] [place] [facility] [address] [id number] [place] [address] Jul, [facility] [place] [facility] [address] [id number] [place] [address] Jul, [facility] [place] [facility] [address] [id number] [place] [address] Jul, [facility] [place] [facility] [address] [id number] [place] [address] Jul, [facility] [place] [facility] [address] [id number] [place] [address] Jul, [facility] [place] [facility] [address] [id number] [place] [address] Jul, [facility] [place] [facility] [address] [id number] [place] [address] Jul, [facility] [place] [facility] [address] [id number] [place] [address] June, [facility] [place] [facility] [address] [id number] [place] [address] June, [facility] [place] [facility] [address] [id number] [place] [address] June, [facility] [address] [id number] [place] [address] June, [facility] [place] [facility] [address] [id number] [place] [address] June, [facility] [place] [facility] [address] [id number] [place] [address] June, [facility] [address] [id number] [place] [address] June, [facility] [place] [facility] [address] [id number] [place] [address] June, [facility] [address] [id number] [place] [address] June, [facility] [address] [id number] [place] [address] June, [facility] [address] [id number] [place] [address] June, [facility] [place] [facility] [address] [id number] [place] [address] June, [facility] [place] [facility] [address] [id number] [place] [address] June, [facility] [place] [facility] [address] [id number] [place] [address] June, [facility] [place] [facility] [address] [id number] [place] [address] June, [facility] [place] [facility] [address] [id number] [place] [address] June, [facility] [place] [facility] [address] [id number] [place] [address] June, [facility] [place] [facility] [address] [id number] [place] [address] May, [facility] [place] [facility] [address] [id number] [place] [address] May, [facility] [place] [facility] [address] [id number] [place] [address] May, [facility] [place] [facility] [address] [id number] [place] [address] May, [facility] [place] [facility] [address] [id number] [place] [address] May, [facility] [place] [facility] [address] [id number] [place] [address] May, [facility] [place] [facility] [address] [id number] [place] [address] May, [facility] [place] [facility] [address] [id number] [place] [address] May, [facility] [place] [facility] [address] [id number] [place] [address] May, [facility] [place] [facility] [address] [id number] [place] [address] May, [facility] [place] [facility] [address] [id number] [place] [address] Apr, [facility] [place] [facility] [address] [id number] [place] [address] Apr, [facility] [place] [facility] [address] [id number] [place] [address] Apr, [facility] [place] [facility] [address] [id number] [place] [address] Apr, [facility] [place] [facility] [address] [id number] [place] [address] Apr, [facility] [place] [facility] [address] [id number] [place] [address] Apr, [facility] [place] [facility] [address] [id number] [place] [address] 13 Apr, 2013 [facility] [place] [facility] [address] [id number] [place] [address] 13 Apr, 2013 [facility] [place] [facility] [address] [id number] [place] [address] 07 Apr, 2013 [facility] [place] [facility] [address] [id number] [place] [address] Apr, [facility] [place] [facility] [address] [id number] [place] [address] Mar, [facility] [place] [facility] [address] [id number] [place] [address] Mar, [facility] [place] [facility] [address] [facility] [id number] [place] [address] Mar, [facility] [place] [facility] [address] [id number] [place] [address] Mar, [facility] [place] [facility] [address] [id number] [place] [address] Mar, [facility] [place] [facility] [address] [facility] [id number] [place] [address] Mar, [facility] [place] [facility] [address] [facility] [id number] [place] [address] Mar, [facility] [place] [facility] [address] [facility] [id number] [place] [address] Mar, [facility] [place] [facility] [address] [facility] [id number] [place] [address] Mar, [facility] [place] [facility] [address] [id number] [place] [address] Mar, [facility] [place] [facility] [address] [facility] [id number] [place] [address] 07 Mar, 2013 [facility] [place] [facility] [address] [facility] [id number] [place] [address] Mar, [facility] [address] [id number] [place] [address] Mar, [facility] [place] [facility] [address] [id number] [place] [address] Feb, [facility] [place] [facility] [address] [id number] [place] [address] Feb, [facility] [place] [facility] [address] [id number] [place] [address] Feb, [facility] [place] [facility] [address] [id number] [place] [address] Feb, [facility] [place] [facility] [address] [id number] [place] [address] Feb, [facility] [place] [facility] [address] [id number] [place] [address] Feb, [facility] [place] [facility] [address] [id number] [place] [address] Feb, [facility] [place] [facility] [address] [id number] [place] [address] Feb, [facility] [place] [facility] [address] [id number] [place] [address] Feb, [facility] [place] [facility] [address] [id number] [place] [address] Feb, [facility] [place] [facility] [address] [id number] [place] [address] Jan, [facility] [place] [facility] [address] [id number] [place] [address] Jan, [facility] [place] [facility] [address] [id number] [place] [address] Jan, [facility] [place] [facility] [address] [id number] [place] [address] Jan, [facility] [place] [facility] [address] [id number] [place] [address] Jan, [facility] [address] [id number] [place] [address] Jan, [facility] [place] [facility] [address] [id number] [place] [address] Jan, [facility] [address] [id number] [place] [address] Jan, [facility] [place] [facility] [address] [id number] [place] [address] Jan, [facility] [address] [id number] [place] [address] Jan, [facility] [place] [facility] [address] [id number] [place] [address] Jan, [facility] [place] [facility] [address] [id number] [place] [address] Jan, [facility] [address] [id number] [place] [address] Jan, [facility] [place] [facility] [address] [id number] [place] [address] Jan, [facility] [place] [facility] [address] [id number] [place] [address] Jan, [facility] [place] [facility] [address] [id number] [place] [address] Jan, [facility] [place] [facility] [address] [id number] [place] [address] Dec, [facility] [place] [facility] [address] [id number] [place] [address] Dec, [facility] [place] [facility] [address] [id number] [place] [address] Dec, [facility] [place] [facility] [address] [id number] [place] [address] Dec, [facility] [place] [facility] [address] [id number] [place] [address] 15 Dec, 2012 [facility] [place] [facility] [address] [id number] [place] [address] 15 Dec, 2012 [facility] [place] [facility] [address] [id number] [place] [address] Dec, [facility] [place] [facility] [address] [id number] [place] [address] Dec, [facility] [place] [facility] [address] [id number] [place] [address] Dec, [facility] [place] [facility] [address] [id number] [place] [address] Dec, [facility] [place] [facility] [address] [id number] [place] [address] Nov, [facility] [place] [facility] [address] [id number] [address] 30 Nov, 2012 [facility] [place] [facility] [address] [id number] [place] [address] Nov, [facility] [place] [facility] [address] [id number] [address] Nov, [facility] [place] [facility] [address] [id number] [address] 18 Nov, 2012 [facility] [place] [facility] [address] [id number] [place] [address] 18 Nov, 2012 [facility] [place] [facility] [address] [id number] [place] [address] 14 Nov, 2012 [facility] [place] [facility] [address] [id number] [address] 14 Nov, 2012 [facility] [place] [facility] [address] [id number] [place] [address] 09 Nov, 2012 [facility] [place] [facility] [address] [id number] [place] [address] 09 Nov, 2012 [facility] [address] [id number] [place] [address] 07 Nov, 2012 [facility] [place] [facility] [address] [id number] [place] [address] 05 Nov, 2012 [facility] [place] [facility] [address] [id number] [place] [address] 20 Oct, 2012 [facility] [place] [facility] [address] [id number] [place] [address] 20 Oct, 2012 [facility] [place] [facility] [address] [id number] [place] [address] 19 Oct, 2012 [facility] [place] [facility] [address] [id number] [place] [address] 18 Oct, 2012 [facility] [address] [id number] [place] [address] 13 Oct, 2012 [facility] [place] [facility] [address] [id number] [place] [address] 05 Oct, 2012 [facility] [place] [facility] [address] [id number] [place] [address] 04 Oct, 2012 [facility] [place] [facility] [address] [id number] [place] [address] 28 Sep, 2012 [facility] [place] [facility] [address] [id number] [place] [address] Sep, [facility] [place] [facility] [address] [id number] [place] [address] Sep, [facility] [place] [facility] [address] [id number] [place] [address] Sep, [facility] [place] [facility] [address] [id number] [place] [address] Sep, [facility] [place] [facility] [address] [id number] [place] [address] 08 Sep, 2012 [facility] [place] [facility] [address] [id number] [place] [address] Sep, [facility] [place] [facility] [address] [id number] [place] [address] Aug, [facility] [place] [facility] [address] [id number] [place] [address] Aug, [facility] [place] [facility] [address] [id number] [place] [address] Aug, [facility] [place] [facility] [address] [id number] [place] [address] Aug, [facility] [place] [facility] [address] [id number] [place] [address] Aug, [facility] [place] [facility] [address] [id number] [place] [address] Aug, [facility] [place] [facility] [address] [id number] [place] [address] Aug, [facility] [place] [facility] [address] [id number] [place] [address] Aug, [facility] [place] [facility] [address] [id number] [place] [address] Aug, [facility] [place] [facility] [address] [id number] [place] [address] Jul, [facility] [place] [facility] [address] [id number] [place] [address] Jul, [facility] [place] [facility] [address] [id number] [place] [address] Jul, [facility] [place] [facility] [address] [id number] [place] [address] Jul, [facility] [place] [facility] [address] [id number] [place] [address] Jul, [facility] [place] [facility] [address] [id number] [place] [address] Jul, [facility] [address] [id number] [place] [address] Jul, [facility] [address] [id number] [place] [address] June, [facility] [address] [id number] [place] [address] June, [facility] [address] [id number] [place] [address] June, [facility] [address] [id number] [place] [address] June, [facility] [address] [id number] [place] [address] June, [facility] [address] [id number] [place] [address] June, [facility] [address] [id number] [place] [address] June, [facility] [address] [id number] [place] [address] June, [facility] [address] [id number] [place] [address] May, [facility] [address] [id number] [place] [address] May, [facility] [place] [facility] [address] [id number] [place] [address] 16 May, 2012 [facility] [place] [facility] [address] [id number] [place] [address] 15 May, 2012 [facility] [place] [facility] [address] [id number] [place] [address] 08 May, 2012 [facility] [place] [facility] [address] [id number] [place] [address] May, [facility] [place] [facility] [address] [id number] [place] [address] 04 May, 2012 [facility] [address] [id number] [place] [address] May, [facility] [address] [id number] [place] [address] May, [facility] [address] [id number] [place] [address] May, [facility] [address] [id number] [place] [address] Apr, [facility] [address] [id number] [place] [address] 19 Apr, 2012 [facility] [address] [id number] [place] [address] 18 Apr, 2012 [facility] [address] [id number] [place] [address] 15 Apr, 2012 [facility] [address] [id number] [place] [address] 13 Apr, 2012 [facility] [address] [id number] [place] [address] 05 Apr, 2012 [facility] [address] [facility] [id number] [place] [address] 04 Apr, 2012 [facility] [address] [id number] [place] [address] 28 Mar, 2012 [facility] [address] [id number] [place] [address] Mar, [facility] [address] [id number] [place] [address] Mar, [facility] [address] [id number] [place] [address] Mar, [facility] [address] [id number] [place] [address] Mar, [facility] [place] [facility] [address] [id number] [place] [address] 07 Mar, 2012 [facility] [place] [facility] [address] [id number] [place] [address] 06 Mar, 2012 [facility] [place] [facility] [address] [id number] [place] [address] 05 Mar, 2012 [facility] [place] [facility] [address] [id number] [place] [address] Mar, [facility] [place] [facility] [address] [id number] [place] [address] Feb, [facility] [place] [facility] [address] [id number] [place] [address] Feb, [facility] [place] [facility] [address] [id number] [place] [address] Feb, [facility] [place] [facility] [address] [id number] [place] [address] Feb, [facility] [place] [facility] [address] [id number] [place] [address] Feb, [facility] [place] [facility] [address] [id number] [place] [address] Feb, [facility] [place] [facility] [address] [id number] [place] [address] Feb, [facility] [place] [facility] [address] [id number] [place] [address] Jan, [facility] [place] [facility] [address] [id number] [place] [address] Jan, [facility] [place] [facility] [address] [id number] [place] [address] Jan, [facility] [place] [facility] [address] [id number] [place] [address] Jan, [facility] [place] [facility] [address] [id number] [place] [address] 27 Jan, 2012 [facility] [address] [id number] [place] [address] 27 Jan, 2012 [facility] [place] [facility] [address] [id number] [place] [address] 14 Jan, 2012 [facility] [address] [id number] [place] [address] Jan, [facility] [place] [facility] [address] [id number] [place] [address] 10 Jan, 2012 [facility] [address] [id number] [place] [address] Jan, [facility] [address] [id number] [place] [address] 04 Jan, 2012 [facility] [address] [id number] [place] [address] Jan, [facility] [address] [id number] [place] [address] Jan, [facility] [place] [facility] [address] [id number] [place] [address] Dec, [facility] [address] [id number] [place] [address] 29 Dec, 2011 [facility] [place] [facility] [address] [id number] [place] [address] Dec, [facility] [place] [facility] [address] [id number] [place] [address] Dec, [facility] [place] [facility] [address] [id number] [place] [address] Dec, [facility] [place] [facility] [address] [id number] [place] [address] Dec, [facility] [place] [facility] [address] [id number] [place] [address] Dec, [facility] [place] [facility] [address] [id number] [place] [address] Dec, [facility] [place] [facility] [address] [id number] [place] [address] Dec, [facility] [place] [facility] [address] [id number] [place] [address] Dec, [facility] [place] [facility] [address] [id number] [place] [address] Dec, [facility] [place] [facility] [address] [id number] [place] [address] Dec, [facility] [place] [facility] [address] [id number] [place] [address] Dec, [facility] [place] [facility] [address] [id number] [place] [address] Dec, [facility] [place] [facility] [address] [id number] [address] Nov, [facility] [place] [facility] [address] [id number] [place] [address] Nov, [facility] [place] [facility] [address] [facility] [id number] [address] Nov, [facility] [place] [facility] [address] [id number] [place] [address] Nov, [facility] [place] [facility] [address] [id number] [place] [address] Nov, [facility] [place] [facility] [address] [id number] [place] [address] Nov, [facility] [place] [facility] [address] [id number] [place] [address] Nov, [facility] [place] [facility] [address] [facility] [id number] [place] [address] Nov, [facility] [place] [facility] [address] [id number] [address] Nov, [facility] [place] [facility] [address] [id number] [place] [address] Nov, [facility] [place] [facility] [address] [id number] [place] [address] Nov, [facility] [place] [facility] [address] [facility] [id number] [place] [address] Nov, [facility] [place] [facility] [address] [id number] [place] [address] Nov, [facility] [place] [facility] [address] [id number] [place] [address] 25 Oct, 2011 [facility] [place] [facility] [address] [id number] [place] [address] 25 Oct, 2011 [facility] [place] [facility] [address] [facility] [id number] [place] [address] 24 Oct, 2011 [facility] [place] [facility] [address] [id number] [place] [address] 17 Oct, 2011 [facility] [place] [facility] [address] [id number] [place] [address] 14 Oct, 2011 [facility] [place] [facility] [address] [facility] [id number] [place] [address] 11 Oct, 2011 [facility] [place] [facility] [address] [id number] [place] [address] 06 Oct, 2011 [facility] [place] [facility] [address] [id number] [address] Sep, [facility] [place] [facility] [address] [id number] [place] [address] Sep, [facility] [place] [facility] [address] [facility] [id number] [place] [address] Sep, [facility] [place] [facility] [address] [facility] [id number] [place] [address] Sep, [facility] [place] [facility] [address] [facility] [id number] [place] [address] Aug, IMMUNIZATIONS No Known Immunizations SOCIAL HISTORY Never Assessed REASON FOR VISIT EMR-[place] PLAN OF CARE VITAL SIGNS MEDICATIONS Unknown [...]
--- OUTSIDE RECORDS SUMMARY | 2018-07-22 18:48 | XMS REPORT ---
Author Author Migration, Doctor Organization [facility] Address Unknown Phone Unavailable Care Team Providers Care Receivables Specialist Name Role Phone Migration, Doctor Unavailable Unavailable PROBLEMS Type Condition ICD9-CM Code THG43-ED Code Onset Dates Condition Status SNOMED Code Problem Loss of weight 783.21 Active 868585863 Problem Unspecified arthropathy, site unspecified 716.90 Active 595433831 Problem Lumbago 724.2 Active 424120541 Problem Depressive disorder, not elsewhere classified 311 Active 66918248 Problem Other abnormal glucose 790.29 Active 463335256 Problem Anxiety state, unspecified 300.00 Active 198993989 Problem Chronic airway obstruction, not elsewhere classified 496 Active 09417371 Problem 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 816448519 Problem Unspecified essential hypertension 401.9 Active 23806104 Problem Migraine, unspecified without mention of intractable migraine without mention of status migrainosus 346.90 Active 80563752 ALLERGIES No Information ENCOUNTERS Encounter Location Date Diagnosis [facility] [address] [address] Mar, [facility] [address] [address] Feb, Arthropathy, unspecified M12.9 [facility] [id number] [place] [address] Feb, [facility] [id number] [place] [address] Jan, [facility] [address] [address] Jan, [facility] [address] [address] Jan, [facility] [address] [address] Oct, 2014 [facility] [place] [facility] [address] [id number] [place] [address] 10 Oct, 2014 Lumbago 724.2 [facility] [place] [facility] [address] [id number] [place] [address] Oct, 2014 [facility] [place] [facility] [address] [id number] [place] [address] 08 Oct, 2014 [facility] [place] [facility] [address] [id number] [place] [address] 08 Oct, 2014 [facility] [place] [facility] [address] [id number] [place] [address] Oct, 2014 [facility] [place] [facility] [address] [id number] [place] [address] Oct, 2014 [facility] [place] [facility] [address] [id number] [place] [address] Oct, 2014 [facility] [place] [facility] [address] [id number] [place] [address] Sep, 2014 [facility] [place] [facility] [address] [id number] [place] [address] Sep, 2014 [facility] [place] [facility] [address] [id number] [place] [address] Aug, 2014 [facility] [place] [facility] [address] [id number] [place] [address] Aug, 2014 [facility] [place] [facility] [address] [id number] [place] [address] Aug, 2014 [facility] [place] [facility] [address] [id number] [place] [address] Aug, 2014 [facility] [place] [facility] [address] [id number] [place] [address] Aug, 2014 [facility] [place] [facility] [address] [id number] [place] [address] Aug2014 [facility] [place] [facility] [address] [facility] [id number], [place] [address] Jul, Unspecified arthropathy, site unspecified 716.90 [facility] [address] [address] Jul, [facility] [address], [place] [address] Jul, [facility] [address], [place] [address] June, Acute bronchitis 466.0 ; Unspecified arthropathy, site unspecified 716.90 and Chronic pain disorder 338.4 [facility] [address], [place] [address] June, [facility] [address], [place] [address] June, [facility] [address], [place] [address] June, [facility] [address], [place] [address] June, [facility] [id number], [place] [address] May, [facility] [address] [id number], [place] [address] May, [facility] [address] [id number], [place] [address] May, [facility] [address] [id number], [place] [address] Apr, [facility] [address], [place] [address] Apr, [facility] [address] [id number], [place] [address] Apr, [facility] [address], [place] [address] 12 Apr, 2014 [facility] [place] [facility] [address] [id number] [place] [address] Apr, 2014 [facility] [place] [facility] [address] [id number] [place] [address] 10 Apr, 2014 [facility] [place] [facility] [address] [facility] [id number] [place] [address] Apr, 2014 [facility] [place] [facility] [address] [id number] [place] [address] Apr, [facility] [place] [facility] [address] [id number] [place] [address] 24 Mar, 2014 [facility] [place] [facility] [address] [facility] [id number] [place] [address] 24 Mar, 2014 [facility] [place] [facility] [address] [facility] [id number] [place] [address] 17 Mar, 2014 [facility] [place] [facility] [address] [facility] [id number] [place] [address] 17 Mar, 2014 [facility] [place] [facility] [address] [facility] [id number] [place] [address] 17 Mar, 2014 [facility] [place] [facility] [address] [facility] [id number] [place] [address] 17 Mar, 2014 [facility] [place] [facility] [address] [facility] [id number] [place] [address] 13 Mar, 2014 [facility] [place] [facility] [address] [facility] [id number] [place] [address] 13 Mar, 2014 [facility] [place] [facility] [address] [facility] [id number] [place] [address] 13 Mar, 2014 [facility] [place] [facility] [address] [facility] [id number] [place] [address] 13 Mar, 2014 [facility] [place] [facility] [address] [facility] [id number] [place] [address] Mar, [facility] [place] [facility] [address] [id number] [place] [address] Mar, [facility] [place] [facility] [address] [id number] [place] [address] Mar, [facility] [place] [facility] [address] [id number] [place] [address] Mar, [facility] [place] [facility] [address] [id number] [place] [address] Mar, [facility] [place] [facility] [address] [id number] [place] [address] Feb, [facility] [place] [facility] [address] [id number] [place] [address] Feb, [facility] [place] [facility] [address] [id number] [place] [address] Feb, [facility] [place] [facility] [address] [id number] [place] [address] Feb, [facility] [place] [facility] [address] [id number] [place] [address] Feb, [facility] [place] [facility] [address] [id number] [place] [address] Feb, [facility] [place] [facility] [address] [id number] [place] [address] Feb, [facility] [place] [facility] [address] [id number], [place] [address] Feb, [facility] [place] [facility] [address] [id number] [place] [address] Feb, [facility] [place] [facility] [address] [id number] [place] [address] Feb, [facility] [place] [facility] [address] [id number] [place] [address] Feb, [facility] [place] [facility] [address] [id number] [place] [address] Jan, [facility] [address] [id number] [place] [address] Jan, [facility] [address] [id number] [place] [address] 15 Jan, 2014 [facility] [address] [id number] [place] [address] 15 Jan, 2014 [facility] [address] [id number] [place] [address] 15 Jan, 2014 [facility] [address] [id number] [place] [address] Jan, [facility] [address] [id number] [place] [address] Jan, [facility] [address] [id number] [place] [address] Jan, [facility] [address] [id number] [place] [address] Jan, [facility] [address] [id number] [place] [address] Jan, [facility] [address] [id number] [place] [address] Jan, [facility] [place] [facility] [address] [id number] [place] [address] Jan, [facility] [place] [facility] [address] [id number] [place] [address] Jan, [facility] [place] [facility] [address] [id number] [place] [address] Jan, [facility] [place] [facility] [address] [id number] [place] [address] Jan, [facility] [place] [facility] [address] [id number] [place] [address] Dec, [facility] [place] [facility] [address] [id number] [place] [address] Dec, [facility] [place] [facility] [address] [id number] [place] [address] Dec, [facility] [place] [facility] [address] [id number] [place] [address] Dec, [facility] [place] [facility] [address] [id number] [place] [address] Dec, [facility] [place] [facility] [address] [id number] [place] [address] Dec, [facility] [place] [facility] [address] [id number] [place] [address] Dec, [facility] [place] [facility] [address] [id number] [place] [address] Dec, [facility] [place] [facility] [address] [id number] [place] [address] Dec, [facility] [place] [facility] [address] [id number] [place] [address] Dec, [facility] [place] [facility] [address] [id number] [place] [address] Dec, [facility] [place] [facility] [address] [id number] [place] [address] Dec, [facility] [place] [facility] [address] [id number], [place] [address] Dec, [facility] [place] [facility] [address] [id number] [place] [address] Dec, [facility] [place] [facility] [address] [id number] [place] [address] Dec, [facility] [place] [facility] [address] [id number], [place] [address] Dec, [facility] [place] [facility] [address] [id number], [place] [address] Dec, [facility] [place] [facility] [address] [id number] [place] [address] Dec, [facility] [place] [facility] [address] [id number] [place] [address] Dec, [facility] [place] [facility] [address] [id number] [place] [address] Dec, [facility] [place] [facility] [address] [id number] [place] [address] Nov, [facility] [place] [facility] [address] [id number] [place] [address] Nov, [facility] [place] [facility] [address] [id number] [place] [address] Nov, [facility] [place] [facility] [address] [id number] [place] [address] Nov, [facility] [place] [facility] [address] [id number] [place] [address] 15 Nov, 2013 [facility] [place] [facility] [address] [id number] [place] [address] Nov, [facility] [place] [facility] [address] [id number] [place] [address] Nov, [facility] [place] [facility] [address] [id number], [place] [address] Nov, [facility] [place] [facility] [address] [id number], [place] [address] Nov, [facility] [place] [facility] [address] [id number] [place] [address] Nov, [facility] [place] [facility] [address] [id number], [place] [address] Nov, [facility] [place] [facility] [address] [id number] [place] [address] Nov, [facility] [place] [facility] [address] [id number] [place] [address] 22 Oct, 2013 [facility] [place] [facility] [address] [id number] [place] [address] 22 Oct, 2013 [facility] [place] [facility] [address] [id number] [place] [address] 19 Oct, 2013 [facility] [place] [facility] [address] [id number] [place] [address] 19 Oct, 2013 [facility] [place] [facility] [address] [id number] [place] [address] 17 Oct, 2013 [facility] [place] [facility] [address] [id number] [place] [address] 17 Oct, 2013 [facility] [place] [facility] [address] [id number] [place] [address] 16 Oct, 2013 [facility] [place] [facility] [address] [id number] [place] [address] 16 Oct, 2013 [facility] [place] [facility] [address] [id number] [place] [address] Oct, 2013 [facility] [place] [facility] [address] [id number] [place] [address] Oct, 2013 [facility] [place] [facility] [address] [id number] [place] [address] Sep, [facility] [place] [facility] [address] [id number] [place] [address] Sep, [facility] [place] [facility] [address] [id number] [place] [address] Sep, [facility] [place] [facility] [address] [id number] [place] [address] Sep, [facility] [place] [facility] [address] [id number] [place] [address] Sep, [facility] [place] [facility] [address] [id number] [place] [address] Sep, [facility] [place] [facility] [address] [id number] [place] [address] Sep, [facility] [place] [facility] [address] [id number] [place] [address] Sep, [facility] [place] [facility] [address] [id number] [place] [address] Sep, [facility] [place] [facility] [address] [id number] [place] [address] Sep, [facility] [place] [facility] [address] [id number] [place] [address] Sep, [facility] [place] [facility] [address] [id number] [place] [address] Sep, [facility] [place] [facility] [address] [id number] [place] [address] Sep, [facility] [place] [facility] [address] [id number] [place] [address] Sep, [facility] [place] [facility] [address] [id number] [place] [address] Aug, [facility] [place] [facility] [address] [id number] [place] [address] Aug, [facility] [place] [facility] [address] [id number] [place] [address] Aug, [facility] [place] [facility] [address] [id number] [place] [address] Aug, [facility] [place] [facility] [address] [id number] [place] [address] Aug, [facility] [place] [facility] [address] [id number] [place] [address] Aug, [facility] [place] [facility] [address] [id number] [place] [address] Aug, [facility] [place] [facility] [address] [id number] [place] [address] Aug, [facility] [place] [facility] [address] [id number] [place] [address] Aug, [facility] [place] [facility] [address] [id number] [place] [address] Aug, [facility] [place] [facility] [address] [id number] [place] [address] Aug, [facility] [place] [facility] [address] [id number] [place] [address] Jul, [facility] [place] [facility] [address] [id number] [place] [address] Jul, [facility] [place] [facility] [address] [id number] [place] [address] Jul, [facility] [place] [facility] [address] [id number] [place] [address] Jul, [facility] [place] [facility] [address] [id number] [place] [address] Jul, [facility] [place] [facility] [address] [id number] [place] [address] Jul, [facility] [place] [facility] [address] [id number] [place] [address] Jul, [facility] [place] [facility] [address] [id number] [place] [address] Jul, [facility] [place] [facility] [address] [id number] [place] [address] Jul, [facility] [place] [facility] [address] [id number] [place] [address] Jul, [facility] [place] [facility] [address] [id number] [place] [address] June, [facility] [place] [facility] [address] [id number] [place] [address] June, [facility] [place] [facility] [address] [id number] [place] [address] June, [facility] [address] [id number] [place] [address] June, [facility] [place] [facility] [address] [id number] [place] [address] June, [facility] [place] [facility] [address] [id number] [place] [address] June, [facility] [address] [id number] [place] [address] June, [facility] [place] [facility] [address] [id number] [place] [address] June, [facility] [address] [id number] [place] [address] June, [facility] [address] [id number] [place] [address] June, [facility] [address] [id number] [place] [address] June, [facility] [place] [facility] [address] [id number] [place] [address] June, [facility] [place] [facility] [address] [id number] [place] [address] June, [facility] [place] [facility] [address] [id number] [place] [address] June, [facility] [place] [facility] [address] [id number] [place] [address] June, [facility] [place] [facility] [address] [id number] [place] [address] June, [facility] [place] [facility] [address] [id number] [place] [address] June, [facility] [place] [facility] [address] [id number] [place] [address] May, [facility] [place] [facility] [address] [id number] [place] [address] May, [facility] [place] [facility] [address] [id number] [place] [address] May, [facility] [place] [facility] [address] [id number] [place] [address] May, [facility] [place] [facility] [address] [id number] [place] [address] May, [facility] [place] [facility] [address] [id number] [place] [address] May, [facility] [place] [facility] [address] [id number] [place] [address] May, [facility] [place] [facility] [address] [id number] [place] [address] May, [facility] [place] [facility] [address] [id number] [place] [address] May, [facility] [place] [facility] [address] [id number] [place] [address] May, [facility] [place] [facility] [address] [id number] [place] [address] Apr, [facility] [place] [facility] [address] [id number] [place] [address] Apr, [facility] [place] [facility] [address] [id number] [place] [address] Apr, [facility] [place] [facility] [address] [id number] [place] [address] Apr, [facility] [place] [facility] [address] [id number] [place] [address] Apr, [facility] [place] [facility] [address] [id number] [place] [address] Apr, [facility] [place] [facility] [address] [id number] [place] [address] 13 Apr, 2013 [facility] [place] [facility] [address] [id number] [place] [address] 13 Apr, 2013 [facility] [place] [facility] [address] [id number] [place] [address] 07 Apr, 2013 [facility] [place] [facility] [address] [id number] [place] [address] Apr, [facility] [place] [facility] [address] [id number] [place] [address] Mar, [facility] [place] [facility] [address] [id number] [place] [address] Mar, [facility] [place] [facility] [address] [facility] [id number] [place] [address] Mar, [facility] [place] [facility] [address] [id number] [place] [address] Mar, [facility] [place] [facility] [address] [id number] [place] [address] Mar, [facility] [place] [facility] [address] [facility] [id number] [place] [address] Mar, [facility] [place] [facility] [address] [facility] [id number] [place] [address] Mar, [facility] [place] [facility] [address] [facility] [id number] [place] [address] Mar, [facility] [place] [facility] [address] [facility] [id number] [place] [address] Mar, [facility] [place] [facility] [address] [id number] [place] [address] Mar, [facility] [place] [facility] [address] [facility] [id number] [place] [address] 07 Mar, 2013 [facility] [place] [facility] [address] [facility] [id number] [place] [address] Mar, [facility] [address] [id number] [place] [address] Mar, [facility] [place] [facility] [address] [id number] [place] [address] Feb, [facility] [place] [facility] [address] [id number] [place] [address] Feb, [facility] [place] [facility] [address] [id number] [place] [address] Feb, [facility] [place] [facility] [address] [id number] [place] [address] Feb, [facility] [place] [facility] [address] [id number] [place] [address] Feb, [facility] [place] [facility] [address] [id number] [place] [address] Feb, [facility] [place] [facility] [address] [id number] [place] [address] Feb, [facility] [place] [facility] [address] [id number] [place] [address] Feb, [facility] [place] [facility] [address] [id number] [place] [address] Feb, [facility] [place] [facility] [address] [id number] [place] [address] Feb, [facility] [place] [facility] [address] [id number] [place] [address] Jan, [facility] [place] [facility] [address] [id number] [place] [address] Jan, [facility] [place] [facility] [address] [id number] [place] [address] Jan, [facility] [place] [facility] [address] [id number] [place] [address] Jan, [facility] [place] [facility] [address] [id number] [place] [address] Jan, [facility] [address] [id number] [place] [address] Jan, [facility] [place] [facility] [address] [id number] [place] [address] Jan, [facility] [address] [id number] [place] [address] Jan, [facility] [place] [facility] [address] [id number] [place] [address] Jan, [facility] [address] [id number] [place] [address] Jan, [facility] [place] [facility] [address] [id number] [place] [address] Jan, [facility] [place] [facility] [address] [id number] [place] [address] Jan, [facility] [address] [id number] [place] [address] Jan, [facility] [place] [facility] [address] [id number] [place] [address] Jan, [facility] [place] [facility] [address] [id number] [place] [address] Jan, [facility] [place] [facility] [address] [id number] [place] [address] Jan, [facility] [place] [facility] [address] [id number] [place] [address] Dec, [facility] [place] [facility] [address] [id number] [place] [address] Dec, [facility] [place] [facility] [address] [id number] [place] [address] Dec, [facility] [place] [facility] [address] [id number] [place] [address] Dec, [facility] [place] [facility] [address] [id number] [place] [address] 15 Dec, 2012 [facility] [place] [facility] [address] [id number] [place] [address] 15 Dec, 2012 [facility] [place] [facility] [address] [id number] [place] [address] Dec, [facility] [place] [facility] [address] [id number] [place] [address] Dec, [facility] [place] [facility] [address] [id number] [place] [address] Dec, [facility] [place] [facility] [address] [id number] [place] [address] Dec, [facility] [place] [facility] [address] [id number] [place] [address] Nov, [facility] [place] [facility] [address] [id number], [place] [address] 30 Nov, 2012 [facility] [place] [facility] [address] [id number] [place] [address] Nov, [facility] [place] [facility] [address] [id number], [place] [address] Nov, [facility] [place] [facility] [address] [id number], [place] [address] 18 Nov, 2012 [facility] [place] [facility] [address] [id number], [place] [address] 18 Nov, 2012 [facility] [place] [facility] [address] [id number] [place] [address] 14 Nov, 2012 [facility] [place] [facility] [address] [id number], [place] [address] 14 Nov, 2012 [facility] [place] [facility] [address] [id number], [place] [address] 09 Nov, 2012 [facility] [place] [facility] [address] [id number] [place] [address] 09 Nov, 2012 [facility] [address] [id number] [place] [address] 07 Nov, 2012 [facility] [place] [facility] [address] [id number] [place] [address] 05 Nov, 2012 [facility] [place] [facility] [address] [id number] [place] [address] 20 Oct, 2012 [facility] [place] [facility] [address] [id number] [place] [address] 20 Oct, 2012 [facility] [place] [facility] [address] [id number] [place] [address] 19 Oct, 2012 [facility] [place] [facility] [address] [id number] [place] [address] 18 Oct, 2012 [facility] [address] [id number] [place] [address] 13 Oct, 2012 [facility] [place] [facility] [address] [id number] [place] [address] 05 Oct, 2012 [facility] [place] [facility] [address] [id number] [place] [address] 04 Oct, 2012 [facility] [place] [facility] [address] [id number] [place] [address] 28 Sep, 2012 [facility] [place] [facility] [address] [id number] [place] [address] Sep, [facility] [place] [facility] [address] [id number] [place] [address] Sep, [facility] [place] [facility] [address] [id number] [place] [address] Sep, [facility] [place] [facility] [address] [id number] [place] [address] Sep, [facility] [place] [facility] [address] [id number] [place] [address] 08 Sep, 2012 [facility] [place] [facility] [address] [id number] [place] [address] Sep, [facility] [place] [facility] [address] [id number] [place] [address] Aug, [facility] [place] [facility] [address] [id number] [place] [address] Aug, [facility] [place] [facility] [address] [id number] [place] [address] Aug, [facility] [place] [facility] [address] [id number] [place] [address] Aug, [facility] [place] [facility] [address] [id number] [place] [address] Aug, [facility] [place] [facility] [address] [id number] [place] [address] Aug, [facility] [place] [facility] [address] [id number] [place] [address] Aug, [facility] [place] [facility] [address] [id number] [place] [address] Aug, [facility] [place] [facility] [address] [id number] [place] [address] Aug, [facility] [place] [facility] [address] [id number] [place] [address] Jul, [facility] [place] [facility] [address] [id number] [place] [address] Jul, [facility] [place] [facility] [address] [id number] [place] [address] Jul, [facility] [place] [facility] [address] [id number] [place] [address] Jul, [facility] [place] [facility] [address] [id number] [place] [address] Jul, [facility] [place] [facility] [address] [id number] [place] [address] Jul, [facility] [address] [id number] [place] [address] Jul, [facility] [address] [id number] [place] [address] June, [facility] [address] [id number] [place] [address] June, [facility] [address] [id number] [place] [address] June, [facility] [address] [id number] [place] [address] June, [facility] [address] [id number] [place] [address] June, [facility] [address] [id number] [place] [address] June, [facility] [address] [id number] [place] [address] June, [facility] [address] [id number] [place] [address] June, [facility] [address] [id number] [place] [address] May, [facility] [address] [id number] [place] [address] May, [facility] [place] [facility] [address] [id number] [place] [address] 16 May, 2012 [facility] [place] [facility] [address] [id number] [place] [address] 15 May, 2012 [facility] [place] [facility] [address] [id number] [place] [address] 08 May, 2012 [facility] [place] [facility] [address] [id number] [place] [address] May, [facility] [place] [facility] [address] [id number] [place] [address] 04 May, 2012 [facility] [address] [id number] [place] [address] May, [facility] [address] [id number] [place] [address] May, [facility] [address] [id number] [place] [address] May, [facility] [address] [id number] [place] [address] Apr, [facility] [address] [id number] [place] [address] 19 Apr, 2012 [facility] [address] [id number] [place] [address] 18 Apr, 2012 [facility] [address] [id number] [place] [address] 15 Apr, 2012 [facility] [address] [id number] [place] [address] 13 Apr, 2012 [facility] [address] [id number] [place] [address] 05 Apr, 2012 [facility] [address] [facility] [id number] [place] [address] 04 Apr, 2012 [facility] [address] [id number] [place] [address] 28 Mar, 2012 [facility] [address] [id number] [place] [address] Mar, [facility] [address] [id number] [place] [address] Mar, [facility] [address] [id number] [place] [address] Mar, [facility] [address] [id number] [place] [address] Mar, [facility] [place] [facility] [address] [id number] [place] [address] 07 Mar, 2012 [facility] [place] [facility] [address] [id number] [place] [address] 06 Mar, 2012 [facility] [place] [facility] [address] [id number] [place] [address] 05 Mar, 2012 [facility] [place] [facility] [address] [id number] [place] [address] Mar, [facility] [place] [facility] [address] [id number] [place] [address] Feb, [facility] [place] [facility] [address] [id number] [place] [address] Feb, [facility] [place] [facility] [address] [id number] [place] [address] Feb, [facility] [place] [facility] [address] [id number] [place] [address] Feb, [facility] [place] [facility] [address] [id number] [place] [address] Feb, [facility] [place] [facility] [address] [id number] [place] [address] Feb, [facility] [place] [facility] [address] [id number] [place] [address] Feb, [facility] [place] [facility] [address] [id number] [place] [address] Jan, [facility] [place] [facility] [address] [id number] [place] [address] Jan, [facility] [place] [facility] [address] [id number] [place] [address] Jan, [facility] [place] [facility] [address] [id number] [place] [address] Jan, [facility] [place] [facility] [address] [id number] [place] [address] 27 Jan, 2012 [facility] [address] [id number] [place] [address] 27 Jan, 2012 [facility] [place] [facility] [address] [id number] [place] [address] 14 Jan, 2012 [facility] [address] [id number] [place] [address] Jan, [facility] [place] [facility] [address] [id number] [place] [address] 10 Jan, 2012 [facility] [address] [id number] [place] [address] Jan, [facility] [address] [id number] [place] [address] 04 Jan, 2012 [facility] [address] [id number] [place] [address] Jan, [facility] [address] [id number] [place] [address] Jan, [facility] [place] [facility] [address] [id number] [place] [address] Dec, [facility] [address] [id number] [place] [address] 29 Dec, 2011 [facility] [place] [facility] [address] [id number] [place] [address] Dec, [facility] [place] [facility] [address] [id number] [place] [address] Dec, [facility] [place] [facility] [address] [id number] [place] [address] Dec, [facility] [place] [facility] [address] [id number] [place] [address] Dec, [facility] [place] [facility] [address] [id number] [place] [address] Dec, [facility] [place] [facility] [address] [id number] [place] [address] Dec, [facility] [place] [facility] [address] [id number] [place] [address] Dec, [facility] [place] [facility] [address] [id number] [place] [address] Dec, [facility] [place] [facility] [address] [id number] [place] [address] Dec, [facility] [place] [facility] [address] [id number] [place] [address] Dec, [facility] [place] [facility] [address] [id number] [place] [address] Dec, [facility] [place] [facility] [address] [id number] [place] [address] Dec, [facility] [place] [facility] [address] [id number], [place] [address] Nov, [facility] [place] [facility] [address] [id number] [place] [address] Nov, [facility] [place] [facility] [address] [facility] [id number], [place] [address] Nov, [facility] [place] [facility] [address] [id number], [place] [address] Nov, [facility] [place] [facility] [address] [id number], [place] [address] Nov, [facility] [place] [facility] [address] [id number], [place] [address] Nov, [facility] [place] [facility] [address] [id number], [place] [address] Nov, [facility] [place] [facility] [address] [facility] [id number], [place] [address] Nov, [facility] [place] [facility] [address] [id number], [place] [address] Nov, [facility] [place] [facility] [address] [id number] [place] [address] Nov, [facility] [place] [facility] [address] [id number] [place] [address] Nov, [facility] [place] [facility] [address] [facility] [id number] [place] [address] Nov, [facility] [place] [facility] [address] [id number] [place] [address] Nov, [facility] [place] [facility] [address] [id number] [place] [address] 25 Oct, 2011 [facility] [place] [facility] [address] [id number] [place] [address] 25 Oct, 2011 [facility] [place] [facility] [address] [facility] [id number] [place] [address] 24 Oct, 2011 [facility] [place] [facility] [address] [id number] [place] [address] 17 Oct, 2011 [facility] [place] [facility] [address] [id number] [place] [address] 14 Oct, 2011 [facility] [place] [facility] [address] [facility] [id number] [place] [address] 11 Oct, 2011 [facility] [place] [facility] [address] [id number] [place] [address] 06 Oct, 2011 [facility] [place] [facility] [address] [id number], [place] [address] Sep, [facility] [place] [facility] [address] [id number] [place] [address] Sep, [facility] [place] [facility] [address] [facility] [id number], [place] [address] Sep, [facility] [place] [facility] [address] [facility] [id number] [place] [address] Sep, [facility] [place] [facility] [address] [facility] [id number] [place] [address] Aug, IMMUNIZATIONS No Known Immunizations SOCIAL HISTORY Never Assessed REASON FOR VISIT EMR-[facility] [place] PLAN OF CARE VITAL SIGNS MEDICATIONS Unknown [...]
--- OUTSIDE RECORDS SUMMARY | 2018-07-22 18:48 | XMS REPORT ---
Author Author Migration, Doctor Organization [facility] Address Unknown Phone Unavailable Care Team Providers Care Automotive Product Specialist Name Role Phone Migration, Doctor Unavailable Unavailable PROBLEMS Type Condition ICD9-CM Code KUQ55-UE Code Onset Dates Condition Status SNOMED Code Problem Loss of weight 783.21 Active 600467809 Problem Unspecified arthropathy, site unspecified 716.90 Active 138169026 Problem Lumbago 724.2 Active 046286961 Problem Depressive disorder, not elsewhere classified 311 Active 08820608 Problem Other abnormal glucose 790.29 Active 811089676 Problem Anxiety state, unspecified 300.00 Active 010848122 Problem Chronic airway obstruction, not elsewhere classified 496 Active 34879042 Problem 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 873757207 Problem Unspecified essential hypertension 401.9 Active 85127121 Problem Migraine, unspecified without mention of intractable migraine without mention of status migrainosus 346.90 Active 02951661 ALLERGIES No Information ENCOUNTERS Encounter Location Date Diagnosis [facility] [address] [address] Mar, [facility] [address] [address] Feb, Arthropathy, unspecified M12.9 [facility] [id number] [address] Feb, [facility] [id number] [address] Jan, [facility] [address] [address] Jan, [facility] [address] [address] Jan, [facility] [address] [address] Oct, 2014 [facility] [place] [facility] [address] [id number] [place] [address] 10 Oct, 2014 Lumbago 724.2 [facility] [place] [facility] [address] [id number] [place] [address] Oct, 2014 [facility] [place] [facility] [address] [id number] [place] [address] 08 Oct, 2014 [facility] [place] [facility] [address] [id number] [place] [address] 08 Oct, 2014 [facility] [place] [facility] [address] [id number] [place] [address] Oct, 2014 [facility] [place] [facility] [address] [id number] [place] [address] Oct, 2014 [facility] [place] [facility] [address] [id number] [place] [address] Oct, 2014 [facility] [place] [facility] [address] [id number] [place] [address] Sep, 2014 [facility] [place] [facility] [address] [id number] [place] [address] Sep, 2014 [facility] [place] [facility] [address] [id number] [place] [address] Aug, 2014 [facility] [place] [facility] [address] [id number] [place] [address] Aug, 2014 [facility] [place] [facility] [address] [id number] [place] [address] Aug, 2014 [facility] [place] [facility] [address] [id number] [place] [address] Aug, 2014 [facility] [place] [facility] [address] [id number] [place] [address] Aug, 2014 [facility] [place] [facility] [address] [id number] [place] [address] Aug2014 [facility] [place] [facility] [address] [facility]NOTE [facility] [id number] [address] Jul, Unspecified arthropathy, site unspecified 716.90 [facility] [id number] [address] Jul, [facility] [id number] [address] Jul, [facility] [address] [address] June, Acute bronchitis 466.0 ; Unspecified arthropathy, site unspecified 716.90 and Chronic pain disorder 338.4 [facility] [id number] [address] June, [facility] [id number] [address] June, [facility] [id number] [address] June, [facility] [id number] [address] June, [facility] [id number] [address] May, [facility] [address] [id number] [address] May, [facility] [address] [id number] [address] May, [facility] [address] [id number] [address] Apr, [facility] [id number], [place] [address] Apr, [facility] [id number] [address] Apr, [facility] [address], [place] [address] 12 Apr, 2014 [facility] [place] [facility] [address] [id number] [place] [address] Apr, 2014 [facility] [place] [facility] [address] [id number] [place] [address] 10 Apr, 2014 [facility] [place] [facility] [address] [facility]] [id number] [place] [address] Apr, 2014 [facility] [place] [facility] [address] [id number] [place] [address] Apr, [facility] [place] [facility] [address] [id number] [place] [address] 24 Mar, 2014 [facility] [place] [facility] [address] [facility] 3] [id number] [place] [address] 24 Mar, 2014 [facility] [place] [facility] [address] [facility] 3] [id number] [place] [address] 17 Mar, 2014 [facility] [place] [facility] [address] [facility] 3] [id number] [place] [address] 17 Mar, 2014 [facility] [place] [facility] [address] [facility]] [id number] [place] [address] 17 Mar, 2014 [facility] [place] [facility] [address] [facility] 3] [id number] [place] [address] 17 Mar, 2014 [facility] [place] [facility] [address] [facility]] [id number] [place] [address] 13 Mar, 2014 [facility] [place] [facility] [address] [facility]] [id number] [place] [address] 13 Mar, 2014 [facility] [place] [facility] [address] [facility] 3] [id number] [place] [address] 13 Mar, 2014 [facility] [place] [facility] [address] [facility]] [id number] [place] [address] 13 Mar, 2014 [facility] [place] [facility] [address] [facility] 3] [id number] [place] [address] Mar, [facility] [place] [facility] [address] [id number] [place] [address] Mar, [facility] [place] [facility] [address] [id number] [place] [address] Mar, [facility] [place] [facility] [address] [id number] [place] [address] Mar, [facility] [place] [facility] [address] [id number] [place] [address] Mar, [facility] [place] [facility] [address] [id number] [place] [address] Feb, [facility] [place] [facility] [address] [id number] [place] [address] Feb, [facility] [place] [facility] [address] [id number] [place] [address] Feb, [facility] [place] [facility] [address] [id number] [place] [address] Feb, [facility] [place] [facility] [address] [id number] [place] [address] Feb, [facility] [place] [facility] [address] [id number] [place] [address] Feb, [facility] [place] [facility] [address] [id number] [place] [address] Feb, [facility] [place] [facility] [address] [id number], [place] [address] Feb, [facility] [place] [facility] [address] [id number] [place] [address] Feb, [facility] [place] [facility] [address] [id number] [place] [address] Feb, [facility] [place] [facility] [address] [id number] [place] [address] Feb, [facility] [place] [facility] [address] [id number] [place] [address] Jan, [facility] [address] [id number] [place] [address] Jan, [facility] [address] [id number] [place] [address] 15 Jan, 2014 [facility] [address] [id number] [place] [address] 15 Jan, 2014 [facility] [address] [id number] [place] [address] 15 Jan, 2014 [facility] [address] [id number] [place] [address] Jan, [facility] [address] [id number] [place] [address] Jan, [facility] [address] [id number] [place] [address] Jan, [facility] [address] [id number] [place] [address] Jan, [facility] [address] [id number] [place] [address] Jan, [facility] [address] [id number] [place] [address] Jan, [facility] [place] [facility] [address] [id number] [place] [address] Jan, [facility] [place] [facility] [address] [id number] [place] [address] Jan, [facility] [place] [facility] [address] [id number] [place] [address] Jan, [facility] [place] [facility] [address] [id number] [place] [address] Jan, [facility] [place] [facility] [address] [id number] [place] [address] Dec, [facility] [place] [facility] [address] [id number] [place] [address] Dec, [facility] [place] [facility] [address] [id number] [place] [address] Dec, [facility] [place] [facility] [address] [id number] [place] [address] Dec, [facility] [place] [facility] [address] [id number] [place] [address] Dec, [facility] [place] [facility] [address] [id number] [place] [address] Dec, [facility] [place] [facility] [address] [id number] [place] [address] Dec, [facility] [place] [facility] [address] [id number] [place] [address] Dec, [facility] [place] [facility] [address] [id number] [place] [address] Dec, [facility] [place] [facility] [address] [id number] [place] [address] Dec, [facility] [place] [facility] [address] [id number] [place] [address] Dec, [facility] [place] [facility] [address] [id number] [place] [address] Dec, [facility] [place] [facility] [address] [id number], [place] [address] Dec, [facility] [place] [facility] [address] [id number] [place] [address] Dec, [facility] [place] [facility] [address] [id number] [place] [address] Dec, [facility] [place] [facility] [address] [id number], [place] [address] Dec, [facility] [place] [facility] [address] [id number], [place] [address] Dec, [facility] [place] [facility] [address] [id number] [place] [address] Dec, [facility] [place] [facility] [address] [id number] [place] [address] Dec, [facility] [place] [facility] [address] [id number] [place] [address] Dec, [facility] [place] [facility] [address] [id number] [place] [address] Nov, [facility] [place] [facility] [address] [id number] [place] [address] Nov, [facility] [place] [facility] [address] [id number] [place] [address] Nov, [facility] [place] [facility] [address] [id number] [place] [address] Nov, [facility] [place] [facility] [address] [id number] [place] [address] 15 Nov, 2013 [facility] [place] [facility] [address] [id number] [place] [address] Nov, [facility] [place] [facility] [address] [id number] [place] [address] Nov, [facility] [place] [facility] [address] [id number], [place] [address] Nov, [facility] [place] [facility] [address] [id number], [place] [address] Nov, [facility] [place] [facility] [address] [id number] [place] [address] Nov, [facility] [place] [facility] [address] [id number], [place] [address] Nov, [facility] [place] [facility] [address] [id number] [place] [address] Nov, [facility] [place] [facility] [address] [id number] [place] [address] 22 Oct, 2013 [facility] [place] [facility] [address] [id number] [place] [address] 22 Oct, 2013 [facility] [place] [facility] [address] [id number] [place] [address] 19 Oct, 2013 [facility] [place] [facility] [address] [id number] [place] [address] 19 Oct, 2013 [facility] [place] [facility] [address] [id number] [place] [address] 17 Oct, 2013 [facility] [place] [facility] [address] [id number] [place] [address] 17 Oct, 2013 [facility] [place] [facility] [address] [id number] [place] [address] 16 Oct, 2013 [facility] [place] [facility] [address] [id number] [place] [address] 16 Oct, 2013 [facility] [place] [facility] [address] [id number] [place] [address] Oct, 2013 [facility] [place] [facility] [address] [id number] [place] [address] Oct, 2013 [facility] [place] [facility] [address] [id number] [place] [address] Sep, [facility] [place] [facility] [address] [id number] [place] [address] Sep, [facility] [place] [facility] [address] [id number] [place] [address] Sep, [facility] [place] [facility] [address] [id number] [place] [address] Sep, [facility] [place] [facility] [address] [id number] [place] [address] Sep, [facility] [place] [facility] [address] [id number] [place] [address] Sep, [facility] [place] [facility] [address] [id number] [place] [address] Sep, [facility] [place] [facility] [address] [id number] [place] [address] Sep, [facility] [place] [facility] [address] [id number] [place] [address] Sep, [facility] [place] [facility] [address] [id number] [place] [address] Sep, [facility] [place] [facility] [address] [id number] [place] [address] Sep, [facility] [place] [facility] [address] [id number] [place] [address] Sep, [facility] [place] [facility] [address] [id number] [place] [address] Sep, [facility] [place] [facility] [address] [id number] [place] [address] Sep, [facility] [place] [facility] [address] [id number] [place] [address] Aug, [facility] [place] [facility] [address] [id number] [place] [address] Aug, [facility] [place] [facility] [address] [id number] [place] [address] Aug, [facility] [place] [facility] [address] [id number] [place] [address] Aug, [facility] [place] [facility] [address] [id number] [place] [address] Aug, [facility] [place] [facility] [address] [id number] [place] [address] Aug, [facility] [place] [facility] [address] [id number] [place] [address] Aug, [facility] [place] [facility] [address] [id number] [place] [address] Aug, [facility] [place] [facility] [address] [id number] [place] [address] Aug, [facility] [place] [facility] [address] [id number] [place] [address] Aug, [facility] [place] [facility] [address] [id number] [place] [address] Aug, [facility] [place] [facility] [address] [id number] [place] [address] Jul, [facility] [place] [facility] [address] [id number] [place] [address] Jul, [facility] [place] [facility] [address] [id number] [place] [address] Jul, [facility] [place] [facility] [address] [id number] [place] [address] Jul, [facility] [place] [facility] [address] [id number] [place] [address] Jul, [facility] [place] [facility] [address] [id number] [place] [address] Jul, [facility] [place] [facility] [address] [id number] [place] [address] Jul, [facility] [place] [facility] [address] [id number] [place] [address] Jul, [facility] [place] [facility] [address] [id number] [place] [address] Jul, [facility] [place] [facility] [address] [id number] [place] [address] Jul, [facility] [place] [facility] [address] [id number] [place] [address] June, [facility] [place] [facility] [address] [id number] [place] [address] June, [facility] [place] [facility] [address] [id number] [place] [address] June, [facility] [address] [id number] [place] [address] June, [facility] [place] [facility] [address] [id number] [place] [address] June, [facility] [place] [facility] [address] [id number] [place] [address] June, [facility] [address] [id number] [place] [address] June, [facility] [place] [facility] [address] [id number] [place] [address] June, [facility] [address] [id number] [place] [address] June, [facility] [address] [id number] [place] [address] June, [facility] [address] [id number] [place] [address] June, [facility] [place] [facility] [address] [id number] [place] [address] June, [facility] [place] [facility] [address] [id number] [place] [address] June, [facility] [place] [facility] [address] [id number] [place] [address] June, [facility] [place] [facility] [address] [id number] [place] [address] June, [facility] [place] [facility] [address] [id number] [place] [address] June, [facility] [place] [facility] [address] [id number] [place] [address] June, [facility] [place] [facility] [address] [id number] [place] [address] May, [facility] [place] [facility] [address] [id number] [place] [address] May, [facility] [place] [facility] [address] [id number] [place] [address] May, [facility] [place] [facility] [address] [id number] [place] [address] May, [facility] [place] [facility] [address] [id number] [place] [address] May, [facility] [place] [facility] [address] [id number] [place] [address] May, [facility] [place] [facility] [address] [id number] [place] [address] May, [facility] [place] [facility] [address] [id number] [place] [address] May, [facility] [place] [facility] [address] [id number] [place] [address] May, [facility] [place] [facility] [address] [id number] [place] [address] May, [facility] [place] [facility] [address] [id number] [place] [address] Apr, [facility] [place] [facility] [address] [id number] [place] [address] Apr, [facility] [place] [facility] [address] [id number] [place] [address] Apr, [facility] [place] [facility] [address] [id number] [place] [address] Apr, [facility] [place] [facility] [address] [id number] [place] [address] Apr, [facility] [place] [facility] [address] [id number] [place] [address] Apr, [facility] [place] [facility] [address] [id number] [place] [address] 13 Apr, 2013 [facility] [place] [facility] [address] [id number] [place] [address] 13 Apr, 2013 [facility] [place] [facility] [address] [id number] [place] [address] 07 Apr, 2013 [facility] [place] [facility] [address] [id number] [place] [address] Apr, [facility] [place] [facility] [address] [id number] [place] [address] Mar, [facility] [place] [facility] [address] [id number] [place] [address] Mar, [facility] [place] [facility] [address] [facility]] [id number] [place] [address] Mar, [facility] [place] [facility] [address] [id number] [place] [address] Mar, [facility] [place] [facility] [address] [id number] [place] [address] Mar, [facility] [place] [facility] [address] [facility]NOTE [facility]] [id number] [place] [address] Mar, [facility] [place] [facility] [address] [facility]] [id number] [place] [address] Mar, [facility] [place] [address] [facility]NOTE [facility]] [id number] [place] [address] Mar, [facility] [place] [facility] [address] [facility]NOTE [facility]] [id number] [place] [address] Mar, [facility] [place] [facility] [address] [id number] [place] [address] Mar, [facility] [place] [address] [facility]NOTE [facility]] [id number] [place] [address] 07 Mar, 2013 [facility] [facility] [address] [facility]] [id number] [place] [address] Mar, [facility] [address] [id number] [place] [address] Mar, [facility] [place] [address] [id number] [place] [address] Feb, [facility] [place] [facility] [address] [id number] [place] [address] Feb, [facility] [place] [address] [id number] [place] [address] Feb, [facility] [place] [facility] [address] [id number] [place] [address] Feb, [facility] [place] [facility] [address] [id number] [place] [address] Feb, [facility] [address] [id number] [place] [address] Feb, [facility] [place] [address] [id number] [place] [address] Feb, [facility] [place] [address] [id number] [place] [address] Feb, [facility] [address] [id number] [place] [address] Feb, [facility] [address] [id number] [place] [address] Feb, [facility] [address] [id number] [place] [address] Jan, [facility] [address] [id number] [place] [address] Jan, [facility] [address] [id number] [place] [address] Jan, [facility] [address] [id number] [place] [address] Jan, [facility] [address] [id number] [place] [address] Jan, [facility] [address] [id number] [place] [address] Jan, [facility] [address] [id number] [place] [address] Jan, [facility] [address] [id number] [place] [address] Jan, [facility] [address] [id number] [place] [address] Jan, [facility] [address] [id number] [place] [address] Jan, [facility] [address] [id number] [place] [address] Jan, [facility] [address] [id number] [place] [address] Jan, [facility] [address] [id number] [place] [address] Jan, [facility] [address] [id number] [place] [address] Jan, [facility] [address] [id number] [place] [address] Jan, [facility] [address] [id number] [place] [address] Jan, [facility] [address] [id number] [place] [address] Dec, [facility] [address] [id number] [place] [address] Dec, [facility] [address] [id number] [place] [address] Dec, [facility] [address] [id number] [place] [address] Dec, [facility] [address] [id number] [place] [address] 15 Dec, 2012 [facility] [address] [id number] [place] [address] 15 Dec, 2012 [facility] [address] [id number] [place] [address] Dec, [facility] [facility] [address] [id number] [place] [address] Dec, [facility] [place] [facility] [address] [id number] [place] [address] Dec, [facility] [place] [facility] [address] [id number] [place] [address] Dec, [facility] [place] [facility] [address] [id number] [place] [address] Nov, [facility] [place] [facility] [address] [id number] [address] 30 Nov, 2012 [facility] [place] [facility] [address] [id number] [place] [address] Nov, [facility] [place] [facility] [address] [id number], [place] [address] Nov, [facility] [place] [facility] [address] [id number], [place] [address] 18 Nov, 2012 [facility] [facility] [address] [id number], [place] [address] 18 Nov, 2012 [facility] [place] [facility] [address] [id number] [place] [address] 14 Nov, 2012 [facility] [place] [facility] [address] [id number], [place] [address] 14 Nov, 2012 [facility] [address] [id number], [place] [address] 09 Nov, 2012 [facility] [place] [facility] [address] [id number] [place] [address] 09 Nov, 2012 [facility] [address] [id number] [place] [address] 07 Nov, 2012 [facility] [place] [facility] [address] [id number] [place] [address] 05 Nov, 2012 [facility] [place] [address] [id number] [place] [address] 20 Oct, 2012 [facility] [place] [address] [id number] [place] [address] 20 Oct, 2012 [facility] [place] [facility] [address] [id number] [place] [address] 19 Oct, 2012 [facility] [place] [facility] [address] [id number] [place] [address] 18 Oct, 2012 [facility] [address] [id number] [place] [address] 13 Oct, 2012 [facility] [address] [id number] [place] [address] 05 Oct, 2012 [facility] [facility] [address] [id number] [place] [address] 04 Oct, 2012 [facility] [place] [address] [id number] [place] [address] 28 Sep, 2012 [facility] [address] [id number] [place] [address] Sep, [facility] [address] [id number] [place] [address] Sep, [facility] [address] [id number] [place] [address] Sep, [facility] [place] [facility] [address] [id number] [place] [address] Sep, [facility] [place] [address] [id number] [place] [address] 08 Sep, 2012 [facility] [place] [address] [id number] [place] [address] Sep, [facility] [place] [facility] [address] [id number] [place] [address] Aug, [facility] [place] [address] [id number] [place] [address] Aug, [facility] [address] [id number] [place] [address] Aug, [facility] [place] [address] [id number] [place] [address] Aug, [facility] [address] [id number] [place] [address] Aug, [facility] [address] [id number] [place] [address] Aug, [facility] [place] [address] [id number] [place] [address] Aug, [facility] [address] [id number] [place] [address] Aug, [facility] [address] [id number] [place] [address] Aug, [facility] [address] [id number] [place] [address] Jul, [facility] [address] [id number] [place] [address] Jul, [facility] [address] [id number] [place] [address] Jul, [facility] [address] [id number] [place] [address] Jul, [facility] [address] [id number] [place] [address] Jul, [facility] [address] [id number] [place] [address] Jul, [facility] [address] [id number] [place] [address] Jul, [facility] [address] [id number] [place] [address] June, [facility] [address] [id number] [place] [address] June, [facility] [address] [id number] [place] [address] June, [facility] [address] [id number] [place] [address] June, [facility] [address] [id number] [place] [address] June, [facility] [address] [id number] [place] [address] June, [facility] [address] [id number] [place] [address] June, [facility] [address] [id number] [place] [address] June, [facility] [address] [id number] [place] [address] May, [facility] [address] [id number] [place] [address] May, [facility] [address] [id number] [place] [address] 16 May, 2012 [facility] [address] [id number] [place] [address] 15 May, 2012 [facility] [address] [id number] [place] [address] 08 May, 2012 [facility] [address] [id number] [place] [address] May, [facility] [address] [id number] [place] [address] 04 May, 2012 [facility] [address] [id number] [place] [address] May, [facility] [address] [id number] [place] [address] May, [facility] [address] [id number] [place] [address] May, [facility] [address] [id number] [place] [address] Apr, [facility] [address] [id number] [place] [address] 19 Apr, 2012 [facility] [address] [id number] [place] [address] 18 Apr, 2012 [facility] [address] [id number] [place] [address] 15 Apr, 2012 [facility] [address] [id number] [place] [address] 13 Apr, 2012 [facility] [address] [id number] [place] [address] 05 Apr, 2012 [facility] [address] [facility] [id number] [place] [address] 04 Apr, 2012 [facility] [address] [id number] [place] [address] 28 Mar, 2012 [facility] [address] [id number] [place] [address] Mar, [facility] [address] [id number] [place] [address] Mar, [facility] [address] [id number] [place] [address] Mar, [facility] [address] [id number] [place] [address] Mar, [facility] [address] [id number] [place] [address] 07 Mar, 2012 [facility] [address] [id number] [place] [address] 06 Mar, 2012 [facility] [address] [id number] [place] [address] 05 Mar, 2012 [facility] [address] [id number] [place] [address] Mar, [facility] [address] [id number] [place] [address] Feb, [facility] [address] [id number] [place] [address] Feb, [facility] [address] [id number] [place] [address] Feb, [facility] [address] [id number] [place] [address] Feb, [facility] [address] [id number] [place] [address] Feb, [facility] [address] [id number] [place] [address] Feb, [facility] [address] [id number] [place] [address] Feb, [facility] [address] [id number] [place] [address] Jan, [facility] [address] [id number] [place] [address] Jan, [facility] [address] [id number] [place] [address] Jan, [facility] [address] [id number] [place] [address] Jan, [facility] [address] [id number] [place] [address] 27 Jan, 2012 [facility] [address] [id number] [place] [address] 27 Jan, 2012 [facility] [address] [id number] [place] [address] 14 Jan, 2012 [facility] [address] [id number] [place] [address] Jan, [facility] [address] [id number] [place] [address] 10 Jan, 2012 [facility] [address] [id number] [place] [address] Jan, [facility] [address] [id number] [place] [address] 04 Jan, 2012 [facility] [address] [id number] [place] [address] Jan, [facility] [address] [id number] [place] [address] Jan, [facility] [address] [id number] [place] [address] Dec, [facility] [address] [id number] [place] [address] 29 Dec, 2011 [facility] [address] [id number] [place] [address] Dec, [facility] [address] [id number] [place] [address] Dec, [facility] [address] [id number] [place] [address] Dec, [facility] [address] [id number] [place] [address] Dec, [facility] [address] [id number] [place] [address] Dec, [facility] [address] [id number] [place] [address] Dec, [facility] [address] [id number] [place] [address] Dec, [facility] [address] [id number] [place] [address] Dec, [facility] [address] [id number] [place] [address] Dec, [facility] [address] [id number] [place] [address] Dec, [facility] [place] [facility] [address] [id number] [place] [address] Dec, [facility] [address] [id number] [place] [address] Dec, [facility] [address] [id number], [place] [address] Nov, [facility] [place] [address] [id number] [place] [address] Nov, [facility] [place] [facility] [address] [facility]] [id number], [place] [address] Nov, [facility] [place] [facility] [address] [id number], [place] [address] Nov, [facility] [address] [id number], [place] [address] Nov, [facility] [address] [id number], [place] [address] Nov, [facility] [address] [id number], [place] [address] Nov, [facility] [address] [facility]] [id number], [place] [address] Nov, [facility] [address] [id number], [place] [address] Nov, [facility] [address] [id number] [place] [address] Nov, [facility] [place] [facility] [address] [id number] [place] [address] Nov, [facility] [facility] [address] [facility]] [id number] [place] [address] Nov, [facility] [place] [facility] [address] [id number] [place] [address] Nov, [facility] [place] [facility] [address] [id number] [place] [address] 25 Oct, 2011 [facility] [place] [facility] [address] [id number] [place] [address] 25 Oct, 2011 [facility] [place] [facility] [address] [facility]] [id number] [place] [address] 24 Oct, 2011 [facility] [place] [facility] [address] [id number] [place] [address] 17 Oct, 2011 [facility] [place] [facility] [address] [id number] [place] [address] 14 Oct, 2011 [facility] [place] [facility] [address] [facility]] [id number] [place] [address] 11 Oct, 2011 [facility] [place] [facility] [address] [id number] [place] [address] 06 Oct, 2011 [facility] [place] [facility] [address] [id number], [place] [address] Sep, [facility] [place] [facility] [address] [id number] [place] [address] Sep, [facility] [place] [facility] [address] [facility]NOTE [facility]] [id number], [place] [address] Sep, [facility] [place] [facility] [address] [facility]NOTE 3] [id number] [place] [address] Sep, [facility] [place] [facility] [address] [facility]] [id number] [place] [address] Aug, IMMUNIZATIONS No Known Immunizations SOCIAL HISTORY Never Assessed REASON FOR VISIT EMR-[facility] [place] PLAN OF CARE VITAL SIGNS MEDICATIONS Unknown [...]
--- OUTSIDE RECORDS SUMMARY | 2018-07-22 18:49 | XMS REPORT ---
Author Author Migration, Doctor Organization [facility] Address Unknown Phone Unavailable Care Team Providers Care School Age Program Associate Name Role Phone Migration, Doctor Unavailable Unavailable PROBLEMS Type Condition ICD9-CM Code [id number] Code Onset Dates Condition Status SNOMED Code Problem Loss of weight 783.21 Active 061478027 Problem Unspecified arthropathy, site unspecified 716.90 Active 955201444 Problem Lumbago 724.2 Active 137124588 Problem Depressive disorder, not elsewhere classified 311 Active 96232462 Problem Other abnormal glucose 790.29 Active 966632855 Problem Anxiety state, unspecified 300.00 Active 882199532 Problem Chronic airway obstruction, not elsewhere classified 496 Active 86484179 Problem 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 804732233 Problem Unspecified essential hypertension 401.9 Active 44388568 Problem Migraine, unspecified without mention of intractable migraine without mention of status migrainosus 346.90 Active [id number] ALLERGIES No Information ENCOUNTERS Encounter Location Date Diagnosis [facility] [place] [address] [address] Mar, [facility] [place] [address] [address] Feb, Arthropathy, unspecified M12.9 [facility] [place] [id number] [place] [address] Feb, [facility] [place] [id number] [place] [address] Jan, [facility] [place] [address] [address] Jan, [facility] [place] [address] [address] Jan, [facility] [place] [address] [address] Oct, 2014 [facility] [place] [facility] [address] [id number] [place] [address] 10 Oct, 2014 Lumbago 724.2 [facility] [place] [facility] [address] [id number] [place] [address] Oct, 2014 [facility] [place] [facility] [address] [id number] [place] [address] 08 Oct, 2014 [facility] [place] [facility] [address] [id number] [place] [address] 08 Oct, 2014 [facility] [place] [facility] [address] [id number] [place] [address] Oct, 2014 [facility] [place] [facility] [address] [id number] [place] [address] Oct, 2014 [facility] [place] [facility] [address] [id number] [place] [address] Oct, 2014 [facility] [place] [facility] [address] [id number] [place] [address] Sep, 2014 [facility] [place] [facility] [address] [id number] [place] [address] Sep, 2014 [facility] [place] [facility] [address] [id number] [place] [address] Aug, 2014 [facility] [place] [facility] [address] [id number] [place] [address] Aug, 2014 [facility] [place] [facility] [address] [id number] [place] [address] Aug, 2014 [facility] [place] [facility] [address] [id number] [place] [address] Aug, 2014 [facility] [place] [facility] [address] [id number] [place] [address] Aug, 2014 [facility] [place] [facility] [address] [id number] [place] [address] Aug2014 [facility] [place] [facility] [address] [facility] [id number], [place] [address] Jul, Unspecified arthropathy, site unspecified 716.90 [facility] [place] [address], [place] [address] Jul, [facility] [place] [address], [place] [address] Jul, [facility] [place] [address], [place] [address] June, Acute bronchitis 466.0 ; Unspecified arthropathy, site unspecified 716.90 and Chronic pain disorder 338.4 [facility] [place] [address], [place] [address] June, [facility] [place] [address], [place] [address] June, [facility] [place] [address], [place] [address] June, [facility] [place] [address], [place] [address] June, [facility] [place] [address], [place] [address] May, [facility] [place] [address] [id number], [place] [address] May, [facility] [place] [address] [id number], [place] [address] May, [facility] [address] [id number], [place] [address] Apr, [facility] [address], [place] [address] Apr, [facility] [address] [id number], [place] [address] Apr, [facility] [place] [address], [place] [address] 12 Apr, 2014 [facility] [place] [facility] [address] [id number] [place] [address] Apr, 2014 [facility] [place] [facility] [address] [id number] [place] [address] 10 Apr, 2014 [facility] [place] [facility] [address] [facility] [id number] [place] [address] Apr, 2014 [facility] [place] [facility] [address] [id number] [place] [address] Apr, [facility] [place] [facility] [address] [id number] [place] [address] 24 Mar, 2014 [facility] [place] [facility] [address] [facility] [id number] [place] [address] 24 Mar, 2014 [facility] [place] [facility] [address] [facility] [id number] [place] [address] 17 Mar, 2014 [facility] [place] [facility] [address] [facility] [id number] [place] [address] 17 Mar, 2014 [facility] [place] [facility] [address] [facility] [id number] [place] [address] 17 Mar, 2014 [facility] [place] [facility] [address] [facility] [id number] [place] [address] 17 Mar, 2014 [facility] [place] [facility] [address] [facility] [id number] [place] [address] 13 Mar, 2014 [facility] [place] [facility] [address] [facility] [id number] [place] [address] 13 Mar, 2014 [facility] [place] [facility] [address] [facility] [id number] [place] [address] 13 Mar, 2014 [facility] [place] [facility] [address] [facility] [id number] [place] [address] 13 Mar, 2014 [facility] [place] [facility] [address] [facility] [id number] [place] [address] Mar, [facility] [place] [facility] [address] [id number] [place] [address] Mar, [facility] [place] [facility] [address] [id number] [place] [address] Mar, [facility] [place] [facility] [address] [id number] [place] [address] Mar, [facility] [place] [facility] [address] [id number] [place] [address] Mar, [facility] [place] [facility] [address] [id number] [place] [address] Feb, [facility] [place] [facility] [address] [id number] [place] [address] Feb, [facility] [place] [facility] [address] [id number] [place] [address] Feb, [facility] [place] [facility] [address] [id number] [place] [address] Feb, [facility] [place] [facility] [address] [id number] [place] [address] Feb, [facility] [place] [facility] [address] [id number] [place] [address] Feb, [facility] [place] [facility] [address] [id number] [place] [address] Feb, [facility] [place] [facility] [address] [id number], [place] [address] Feb, [facility] [place] [facility] [address] [id number] [place] [address] Feb, [facility] [place] [facility] [address] [id number] [place] [address] Feb, [facility] [place] [facility] [address] [id number] [place] [address] Feb, [facility] [place] [facility] [address] [id number] [place] [address] Jan, [facility] [address] [id number] [place] [address] Jan, [facility] [address] [id number] [place] [address] 15 Jan, 2014 [facility] [address] [id number] [place] [address] 15 Jan, 2014 [facility] [address] [id number] [place] [address] 15 Jan, 2014 [facility] [address] [id number] [place] [address] Jan, [facility] [address] [id number] [place] [address] Jan, [facility] [address] [id number] [place] [address] Jan, [facility] [address] [id number] [place] [address] Jan, [facility] [address] [id number] [place] [address] Jan, [facility] [address] [id number] [place] [address] Jan, [facility] [place] [facility] [address] [id number] [place] [address] Jan, [facility] [place] [facility] [address] [id number] [place] [address] Jan, [facility] [place] [facility] [address] [id number] [place] [address] Jan, [facility] [place] [facility] [address] [id number] [place] [address] Jan, [facility] [place] [facility] [address] [id number] [place] [address] Dec, [facility] [place] [facility] [address] [id number] [place] [address] Dec, [facility] [place] [facility] [address] [id number] [place] [address] Dec, [facility] [place] [facility] [address] [id number] [place] [address] Dec, [facility] [place] [facility] [address] [id number] [place] [address] Dec, [facility] [place] [facility] [address] [id number] [place] [address] Dec, [facility] [place] [facility] [address] [id number] [place] [address] Dec, [facility] [place] [facility] [address] [id number] [place] [address] Dec, [facility] [place] [facility] [address] [id number] [place] [address] Dec, [facility] [place] [facility] [address] [id number] [place] [address] Dec, [facility] [place] [facility] [address] [id number] [place] [address] Dec, [facility] [place] [facility] [address] [id number] [place] [address] Dec, [facility] [place] [facility] [address] [id number], [place] [address] Dec, [facility] [place] [facility] [address] [id number] [place] [address] Dec, [facility] [place] [facility] [address] [id number] [place] [address] Dec, [facility] [place] [facility] [address] [id number], [place] [address] Dec, [facility] [place] [facility] [address] [id number], [place] [address] Dec, [facility] [place] [facility] [address] [id number] [place] [address] Dec, [facility] [place] [facility] [address] [id number] [place] [address] Dec, [facility] [place] [facility] [address] [id number] [place] [address] Dec, [facility] [place] [facility] [address] [id number] [place] [address] Nov, [facility] [place] [facility] [address] [id number] [place] [address] Nov, [facility] [place] [facility] [address] [id number] [place] [address] Nov, [facility] [place] [facility] [address] [id number] [place] [address] Nov, [facility] [place] [facility] [address] [id number] [place] [address] 15 Nov, 2013 [facility] [place] [facility] [address] [id number] [place] [address] Nov, [facility] [place] [facility] [address] [id number] [place] [address] Nov, [facility] [place] [facility] [address] [id number], [place] [address] Nov, [facility] [place] [facility] [address] [id number], [place] [address] Nov, [facility] [place] [facility] [address] [id number] [place] [address] Nov, [facility] [place] [facility] [address] [id number], [place] [address] Nov, [facility] [place] [facility] [address] [id number] [place] [address] Nov, [facility] [place] [facility] [address] [id number] [place] [address] 22 Oct, 2013 [facility] [place] [facility] [address] [id number] [place] [address] 22 Oct, 2013 [facility] [place] [facility] [address] [id number] [place] [address] 19 Oct, 2013 [facility] [place] [facility] [address] [id number] [place] [address] 19 Oct, 2013 [facility] [place] [facility] [address] [id number] [place] [address] 17 Oct, 2013 [facility] [place] [facility] [address] [id number] [place] [address] 17 Oct, 2013 [facility] [place] [facility] [address] [id number] [place] [address] 16 Oct, 2013 [facility] [place] [facility] [address] [id number] [place] [address] 16 Oct, 2013 [facility] [place] [facility] [address] [id number] [place] [address] Oct, 2013 [facility] [place] [facility] [address] [id number] [place] [address] Oct, 2013 [facility] [place] [facility] [address] [id number] [place] [address] Sep, [facility] [place] [facility] [address] [id number] [place] [address] Sep, [facility] [place] [facility] [address] [id number] [place] [address] Sep, [facility] [place] [facility] [address] [id number] [place] [address] Sep, [facility] [place] [facility] [address] [id number] [place] [address] Sep, [facility] [place] [facility] [address] [id number] [place] [address] Sep, [facility] [place] [facility] [address] [id number] [place] [address] Sep, [facility] [place] [facility] [address] [id number] [place] [address] Sep, [facility] [place] [facility] [address] [id number] [place] [address] Sep, [facility] [place] [facility] [address] [id number] [place] [address] Sep, [facility] [place] [facility] [address] [id number] [place] [address] Sep, [facility] [place] [facility] [address] [id number] [place] [address] Sep, [facility] [place] [facility] [address] [id number] [place] [address] Sep, [facility] [place] [facility] [address] [id number] [place] [address] Sep, [facility] [place] [facility] [address] [id number] [place] [address] Aug, [facility] [place] [facility] [address] [id number] [place] [address] Aug, [facility] [place] [facility] [address] [id number] [place] [address] Aug, [facility] [place] [facility] [address] [id number] [place] [address] Aug, [facility] [place] [facility] [address] [id number] [place] [address] Aug, [facility] [place] [facility] [address] [id number] [place] [address] Aug, [facility] [place] [facility] [address] [id number] [place] [address] Aug, [facility] [place] [facility] [address] [id number] [place] [address] Aug, [facility] [place] [facility] [address] [id number] [place] [address] Aug, [facility] [place] [facility] [address] [id number] [place] [address] Aug, [facility] [place] [facility] [address] [id number] [place] [address] Aug, [facility] [place] [facility] [address] [id number] [place] [address] Jul, [facility] [place] [facility] [address] [id number] [place] [address] Jul, [facility] [place] [facility] [address] [id number] [place] [address] Jul, [facility] [place] [facility] [address] [id number] [place] [address] Jul, [facility] [place] [facility] [address] [id number] [place] [address] Jul, [facility] [place] [facility] [address] [id number] [place] [address] Jul, [facility] [place] [facility] [address] [id number] [place] [address] Jul, [facility] [place] [facility] [address] [id number] [place] [address] Jul, [facility] [place] [facility] [address] [id number] [place] [address] Jul, [facility] [place] [facility] [address] [id number] [place] [address] Jul, [facility] [place] [facility] [address] [id number] [place] [address] June, [facility] [place] [facility] [address] [id number] [place] [address] June, [facility] [place] [facility] [address] [id number] [place] [address] June, [facility] [address] [id number] [place] [address] June, [facility] [place] [facility] [address] [id number] [place] [address] June, [facility] [place] [facility] [address] [id number] [place] [address] June, [facility] [address] [id number] [place] [address] June, [facility] [place] [facility] [address] [id number] [place] [address] June, [facility] [address] [id number] [place] [address] June, [facility] [address] [id number] [place] [address] June, [facility] [address] [id number] [place] [address] June, [facility] [place] [facility] [address] [id number] [place] [address] June, [facility] [place] [facility] [address] [id number] [place] [address] June, [facility] [place] [facility] [address] [id number] [place] [address] June, [facility] [place] [facility] [address] [id number] [place] [address] June, [facility] [place] [facility] [address] [id number] [place] [address] June, [facility] [place] [facility] [address] [id number] [place] [address] June, [facility] [place] [facility] [address] [id number] [place] [address] May, [facility] [place] [facility] [address] [id number] [place] [address] May, [facility] [place] [facility] [address] [id number] [place] [address] May, [facility] [place] [facility] [address] [id number] [place] [address] May, [facility] [place] [facility] [address] [id number] [place] [address] May, [facility] [place] [facility] [address] [id number] [place] [address] May, [facility] [place] [facility] [address] [id number] [place] [address] May, [facility] [place] [facility] [address] [id number] [place] [address] May, [facility] [place] [facility] [address] [id number] [place] [address] May, [facility] [place] [facility] [address] [id number] [place] [address] May, [facility] [place] [facility] [address] [id number] [place] [address] Apr, [facility] [place] [facility] [address] [id number] [place] [address] Apr, [facility] [place] [facility] [address] [id number] [place] [address] Apr, [facility] [place] [facility] [address] [id number] [place] [address] Apr, [facility] [place] [facility] [address] [id number] [place] [address] Apr, [facility] [place] [facility] [address] [id number] [place] [address] Apr, [facility] [place] [facility] [address] [id number] [place] [address] 13 Apr, 2013 [facility] [place] [facility] [address] [id number] [place] [address] 13 Apr, 2013 [facility] [place] [facility] [address] [id number] [place] [address] 07 Apr, 2013 [facility] [place] [facility] [address] [id number] [place] [address] Apr, [facility] [place] [facility] [address] [id number] [place] [address] Mar, [facility] [place] [facility] [address] [id number] [place] [address] Mar, [facility] [place] [facility] [address] [facility] [id number] [place] [address] Mar, [facility] [place] [facility] [address] [id number] [place] [address] Mar, [facility] [place] [facility] [address] [id number] [place] [address] Mar, [facility] [place] [facility] [address] [facility] [id number] [place] [address] Mar, [facility] [place] [facility] [address] [facility] [id number] [place] [address] Mar, [facility] [place] [facility] [address] [facility] [id number] [place] [address] Mar, [facility] [place] [facility] [address] [facility] [id number] [place] [address] Mar, [facility] [place] [facility] [address] [id number] [place] [address] Mar, [facility] [place] [facility] [address] [facility] [id number] [place] [address] 07 Mar, 2013 [facility] [place] [facility] [address] [facility] [id number] [place] [address] Mar, [facility] [address] [id number] [place] [address] Mar, [facility] [place] [facility] [address] [id number] [place] [address] Feb, [facility] [place] [facility] [address] [id number] [place] [address] Feb, [facility] [place] [facility] [address] [id number] [place] [address] Feb, [facility] [place] [facility] [address] [id number] [place] [address] Feb, [facility] [place] [facility] [address] [id number] [place] [address] Feb, [facility] [place] [facility] [address] [id number] [place] [address] Feb, [facility] [place] [facility] [address] [id number] [place] [address] Feb, [facility] [place] [facility] [address] [id number] [place] [address] Feb, [facility] [place] [facility] [address] [id number] [place] [address] Feb, [facility] [place] [facility] [address] [id number] [place] [address] Feb, [facility] [place] [facility] [address] [id number] [place] [address] Jan, [facility] [place] [facility] [address] [id number] [place] [address] Jan, [facility] [place] [facility] [address] [id number] [place] [address] Jan, [facility] [place] [facility] [address] [id number] [place] [address] Jan, [facility] [place] [facility] [address] [id number] [place] [address] Jan, [facility] [address] [id number] [place] [address] Jan, [facility] [place] [facility] [address] [id number] [place] [address] Jan, [facility] [address] [address] [id number] [place] [address] Jan, [facility] [place] [facility] [address] [id number] [place] [address] Jan, [facility] [address] [id number] [place] [address] Jan, [facility] [place] [facility] [address] [id number] [place] [address] Jan, [facility] [place] [facility] [address] [id number] [place] [address] Jan, [facility] [address] [id number] [place] [address] Jan, [facility] [place] [facility] [address] [id number] [place] [address] Jan, [facility] [place] [facility] [address] [id number] [place] [address] Jan, [facility] [place] [facility] [address] [id number] [place] [address] Jan, [facility] [place] [facility] [address] [id number] [place] [address] Dec, [facility] [place] [facility] [address] [id number] [place] [address] Dec, [facility] [place] [facility] [address] [id number] [place] [address] Dec, [facility] [place] [facility] [address] [id number] [place] [address] Dec, [facility] [place] [facility] [address] [id number] [place] [address] 15 Dec, 2012 [facility] [place] [facility] [address] [id number] [place] [address] 15 Dec, 2012 [facility] [place] [facility] [address] [id number] [place] [address] Dec, [facility] [place] [facility] [address] [id number] [place] [address] Dec, [facility] [place] [facility] [address] [id number] [place] [address] Dec, [facility] [place] [facility] [address] [id number] [place] [address] Dec, [facility] [place] [facility] [address] [id number] [place] [address] Nov, [facility] [place] [facility] [address] [id number], [place] [address] 30 Nov, 2012 [facility] [place] [facility] [address] [id number] [place] [address] Nov, [facility] [place] [facility] [address] [id number], [place] [address] Nov, [facility] [place] [facility] [address] [id number], [place] [address] 18 Nov, 2012 [facility] [place] [facility] [address] [id number], [place] [address] 18 Nov, 2012 [facility] [place] [facility] [address] [id number] [place] [address] 14 Nov, 2012 [facility] [place] [facility] [address] [id number], [place] [address] 14 Nov, 2012 [facility] [place] [facility] [address] [id number], [place] [address] 09 Nov, 2012 [facility] [place] [facility] [address] [id number] [place] [address] 09 Nov, 2012 [facility] [address] [id number] [place] [address] 07 Nov, 2012 [facility] [place] [facility] [address] [id number] [place] [address] 05 Nov, 2012 [facility] [place] [facility] [address] [id number] [place] [address] 20 Oct, 2012 [facility] [place] [facility] [address] [id number] [place] [address] 20 Oct, 2012 [facility] [place] [facility] [address] [id number] [place] [address] 19 Oct, 2012 [facility] [place] [facility] [address] [id number] [place] [address] 18 Oct, 2012 [facility] [address] [id number] [place] [address] 13 Oct, 2012 [facility] [place] [facility] [address] [id number] [place] [address] 05 Oct, 2012 [facility] [place] [facility] [address] [id number] [place] [address] 04 Oct, 2012 [facility] [place] [facility] [address] [id number] [place] [address] 28 Sep, 2012 [facility] [place] [facility] [address] [id number] [place] [address] Sep, [facility] [place] [facility] [address] [id number] [place] [address] Sep, [facility] [place] [facility] [address] [id number] [place] [address] Sep, [facility] [place] [facility] [address] [id number] [place] [address] Sep, [facility] [place] [facility] [address] [id number] [place] [address] 08 Sep, 2012 [facility] [place] [facility] [address] [id number] [place] [address] Sep, [facility] [place] [facility] [address] [id number] [place] [address] Aug, [facility] [place] [facility] [address] [id number] [place] [address] Aug, [facility] [place] [facility] [address] [id number] [place] [address] Aug, [facility] [place] [facility] [address] [id number] [place] [address] Aug, [facility] [place] [facility] [address] [id number] [place] [address] Aug, [facility] [place] [facility] [address] [id number] [place] [address] Aug, [facility] [place] [facility] [address] [id number] [place] [address] Aug, [facility] [place] [facility] [address] [id number] [place] [address] Aug, [facility] [place] [facility] [address] [id number] [place] [address] Aug, [facility] [place] [facility] [address] [id number] [place] [address] Jul, [facility] [place] [facility] [address] [id number] [place] [address] Jul, [facility] [place] [facility] [address] [id number] [place] [address] Jul, [facility] [place] [facility] [address] [id number] [place] [address] Jul, [facility] [place] [facility] [address] [id number] [place] [address] Jul, [facility] [place] [facility] [address] [id number] [place] [address] Jul, [facility] [address] [id number] [place] [address] Jul, [facility] [address] [id number] [place] [address] June, [facility] [address] [id number] [place] [address] June, [facility] [address] [id number] [place] [address] June, [facility] [address] [id number] [place] [address] June, [facility] [address] [id number] [place] [address] June, [facility] [address] [id number] [place] [address] June, [facility] [address] [id number] [place] [address] June, [facility] [address] [id number] [place] [address] June, [facility] [address] [id number] [place] [address] May, [facility] [address] [id number] [place] [address] May, [facility] [place] [facility] [address] [id number] [place] [address] 16 May, 2012 [facility] [place] [facility] [address] [id number] [place] [address] 15 May, 2012 [facility] [place] [facility] [address] [id number] [place] [address] 08 May, 2012 [facility] [place] [facility] [address] [id number] [place] [address] May, [facility] [place] [facility] [address] [id number] [place] [address] 04 May, 2012 [facility] [address] [id number] [place] [address] May, [facility] [address] [id number] [place] [address] May, [facility] [address] [id number] [place] [address] May, [facility] [address] [id number] [place] [address] Apr, [facility] [address] [id number] [place] [address] 19 Apr, 2012 [facility] [address] [id number] [place] [address] 18 Apr, 2012 [facility] [address] [id number] [place] [address] 15 Apr, 2012 [facility] [address] [id number] [place] [address] 13 Apr, 2012 [facility] [address] [id number] [place] [address] 05 Apr, 2012 [facility] [address] [facility] [id number] [place] [address] 04 Apr, 2012 [facility] [address] [id number] [place] [address] 28 Mar, 2012 [facility] [address] [id number] [place] [address] Mar, [facility] [address] [id number] [place] [address] Mar, [facility] [address] [id number] [place] [address] Mar, [facility] [address] [id number] [place] [address] Mar, [facility] [place] [facility] [address] [id number] [place] [address] 07 Mar, 2012 [facility] [place] [facility] [address] [id number] [place] [address] 06 Mar, 2012 [facility] [place] [facility] [address] [id number] [place] [address] 05 Mar, 2012 [facility] [place] [facility] [address] [id number] [place] [address] Mar, [facility] [place] [facility] [address] [id number] [place] [address] Feb, [facility] [place] [facility] [address] [id number] [place] [address] Feb, [facility] [place] [facility] [address] [id number] [place] [address] Feb, [facility] [place] [facility] [address] [id number] [place] [address] Feb, [facility] [place] [facility] [address] [id number] [place] [address] Feb, [facility] [place] [facility] [address] [id number] [place] [address] Feb, [facility] [place] [facility] [address] [id number] [place] [address] Feb, [facility] [place] [facility] [address] [id number] [place] [address] Jan, [facility] [place] [facility] [address] [id number] [place] [address] Jan, [facility] [place] [facility] [address] [id number] [place] [address] Jan, [facility] [place] [facility] [address] [id number] [place] [address] Jan, [facility] [place] [facility] [address] [id number] [place] [address] 27 Jan, 2012 [facility] [address] [id number] [place] [address] 27 Jan, 2012 [facility] [place] [facility] [address] [id number] [place] [address] 14 Jan, 2012 [facility] [address] [id number] [place] [address] Jan, [facility] [place] [facility] [address] [id number] [place] [address] 10 Jan, 2012 [facility] [address] [id number] [place] [address] Jan, [facility] [address] [id number] [place] [address] 04 Jan, 2012 [facility] [address] [id number] [place] [address] Jan, [facility] [address] [id number] [place] [address] Jan, [facility] [place] [facility] [address] [id number] [place] [address] Dec, [facility] [address] [id number] [place] [address] 29 Dec, 2011 [facility] [place] [facility] [address] [id number] [place] [address] Dec, [facility] [place] [facility] [address] [id number] [place] [address] Dec, [facility] [place] [facility] [address] [id number] [place] [address] Dec, [facility] [place] [facility] [address] [id number] [place] [address] Dec, [facility] [place] [facility] [address] [id number] [place] [address] Dec, [facility] [place] [facility] [address] [id number] [place] [address] Dec, [facility] [place] [facility] [address] [id number] [place] [address] Dec, [facility] [place] [facility] [address] [id number] [place] [address] Dec, [facility] [place] [facility] [address] [id number] [place] [address] Dec, [facility] [place] [facility] [address] [id number] [place] [address] Dec, [facility] [place] [facility] [address] [id number] [place] [address] Dec, [facility] [place] [facility] [address] [id number] [place] [address] Dec, [facility] [place] [facility] [address] [id number], [place] [address] Nov, [facility] [place] [facility] [address] [id number] [place] [address] Nov, [facility] [place] [facility] [address] [facility] [id number], [place] [address] Nov, [facility] [place] [facility] [address] [id number], [place] [address] Nov, [facility] [place] [facility] [address] [id number], [place] [address] Nov, [facility] [place] [facility] [address] [id number], [place] [address] Nov, [facility] [place] [facility] [address] [id number], [place] [address] Nov, [facility] [place] [facility] [address] [facility] [id number], [place] [address] Nov, [facility] [place] [facility] [address] [id number], [place] [address] Nov, [facility] [place] [facility] [address] [id number] [place] [address] Nov, [facility] [place] [facility] [address] [id number] [place] [address] Nov, [facility] [place] [facility] [address] [facility] [id number] [place] [address] Nov, [facility] [place] [facility] [address] [id number] [place] [address] Nov, [facility] [place] [facility] [address] [id number] [place] [address] 25 Oct, 2011 [facility] [place] [facility] [address] [id number] [place] [address] 25 Oct, 2011 [facility] [place] [facility] [address] [facility] [id number] [place] [address] 24 Oct, 2011 [facility] [place] [facility] [address] [id number] [place] [address] 17 Oct, 2011 [facility] [place] [facility] [address] [id number] [place] [address] 14 Oct, 2011 [facility] [place] [facility] [address] [facility] [id number] [place] [address] 11 Oct, 2011 [facility] [place] [facility] [address] [id number] [place] [address] 06 Oct, 2011 [facility] [place] [facility] [address] [id number], [place] [address] Sep, [facility] [place] [facility] [address] [id number] [place] [address] Sep, [facility] [place] [facility] [address] [facility] [id number], [place] [address] Sep, [facility] [place] [facility] [address] [facility] [id number] [place] [address] Sep, [facility] [place] [facility] [address] [facility] [id number] [place] [address] Aug, IMMUNIZATIONS No Known Immunizations SOCIAL HISTORY Never Assessed REASON FOR VISIT [place] [place] CARE VITAL SIGNS MEDICATIONS Unknown [...]
--- OUTSIDE RECORDS SUMMARY | 2018-07-22 18:50 | XMS REPORT ---
Author Author Migration, Doctor Organization [facility] Address Unknown Phone Unavailable Care Team Providers Care Cloth Picker Name Role Phone Migration, Doctor Unavailable Unavailable PROBLEMS Type Condition ICD9-CM Code GTB83-IO Code Onset Dates Condition Status SNOMED Code Problem Loss of weight 783.21 Active 091336622 Problem Unspecified arthropathy, site unspecified 716.90 Active 032876443 Problem Lumbago 724.2 Active 788809897 Problem Depressive disorder, not elsewhere classified 311 Active 34863582 Problem Other abnormal glucose 790.29 Active 911896967 Problem Anxiety state, unspecified 300.00 Active 767153152 Problem Chronic airway obstruction, not elsewhere classified 496 Active 12620716 Problem 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 [address] [address] Mar, [facility] [address] [address] Feb, Arthropathy, unspecified M12.9 [facility] [id number] [place] [address] Feb, [facility] [id number] [place] [address] Jan, [facility] [address] [address] Jan, [facility] [address] [address] Jan, [facility] [address] [address] Oct, 2014 [facility] [place] [facility] [address] [id number] [place] [address] 10 Oct, 2014 Lumbago 724.2 [facility] [place] [facility] [address] [id number] [place] [address] Oct, 2014 [facility] [place] [facility] [address] [id number] [place] [address] 08 Oct, 2014 [facility] [place] [facility] [address] [id number] [place] [address] 08 Oct, 2014 [facility] [place] [facility] [address] [id number] [place] [address] Oct, 2014 [facility] [place] [facility] [address] [id number] [place] [address] Oct, 2014 [facility] [place] [facility] [address] [id number] [place] [address] Oct, 2014 [facility] [place] [facility] [address] [id number] [place] [address] Sep, 2014 [facility] [place] [facility] [address] [id number] [place] [address] Sep, 2014 [facility] [place] [facility] [address] [id number] [place] [address] Aug, 2014 [facility] [place] [facility] [address] [id number] [place] [address] Aug, 2014 [facility] [place] [facility] [address] [id number] [place] [address] Aug, 2014 [facility] [place] [facility] [address] [id number] [place] [address] Aug, 2014 [facility] [place] [facility] [address] [id number] [place] [address] Aug, 2014 [facility] [place] [facility] [address] [id number] [place] [address] Aug2014 [facility] [place] [facility] [address] [facility] [id number] [address] Jul, Unspecified arthropathy, site unspecified 716.90 [facility] [id number] [address] Jul, [facility] [id number] [address] Jul, [facility] [id number] [address] June, Acute bronchitis 466.0 ; Unspecified arthropathy, site unspecified 716.90 and Chronic pain disorder 338.4 [facility] [id number] [address] June, [facility] [id number] [address] June, [facility] [id number] [address] June, [facility] [id number] [address] June, [facility] [id number] [address] May, [facility] [address] [id number] [address] May, [facility] [address] [id number] [address] May, [facility] [address] [id number] [address] Apr, [facility] [id number], [place] [address] Apr, [facility] [address] [id number], [place] [address] Apr, [facility] [address], [place] [address] 12 Apr, 2014 [facility] [place] [facility] [address] [id number] [place] [address] Apr, 2014 [facility] [place] [facility] [address] [id number] [place] [address] 10 Apr, 2014 [facility] [place] [facility] [address] [facility] [id number] [place] [address] Apr, 2014 [facility] [place] [facility] [address] [id number] [place] [address] Apr, [facility] [place] [facility] [address] [id number] [place] [address] 24 Mar, 2014 [facility] [place] [facility] [address] [facility] [id number] [place] [address] 24 Mar, 2014 [facility] [place] [facility] [address] [facility] [id number] [place] [address] 17 Mar, 2014 [facility] [place] [facility] [address] [facility] [id number] [place] [address] 17 Mar, 2014 [facility] [place] [facility] [address] [facility] [id number] [place] [address] 17 Mar, 2014 [facility] [place] [facility] [address] [facility] [id number] [place] [address] 17 Mar, 2014 [facility] [place] [facility] [address] [facility] [id number] [place] [address] 13 Mar, 2014 [facility] [place] [facility] [address] [facility] [id number] [place] [address] 13 Mar, 2014 [facility] [place] [facility] [address] [facility] [id number] [place] [address] 13 Mar, 2014 [facility] [place] [facility] [address] [facility] [id number] [place] [address] 13 Mar, 2014 [facility] [place] [facility] [address] [facility] [id number] [place] [address] Mar, [facility] [place] [facility] [address] [id number] [place] [address] Mar, [facility] [place] [facility] [address] [id number] [place] [address] Mar, [facility] [place] [facility] [address] [id number] [place] [address] Mar, [facility] [place] [facility] [address] [id number] [place] [address] Mar, [facility] [place] [facility] [address] [id number] [place] [address] Feb, [facility] [place] [facility] [address] [id number] [place] [address] Feb, [facility] [place] [facility] [address] [id number] [place] [address] Feb, [facility] [place] [facility] [address] [id number] [place] [address] Feb, [facility] [place] [facility] [address] [id number] [place] [address] Feb, [facility] [place] [facility] [address] [id number] [place] [address] Feb, [facility] [place] [facility] [address] [id number] [place] [address] Feb, [facility] [place] [facility] [address] [id number], [place] [address] Feb, [facility] [place] [facility] [address] [id number] [place] [address] Feb, [facility] [place] [facility] [address] [id number] [place] [address] Feb, [facility] [place] [facility] [address] [id number] [place] [address] Feb, [facility] [place] [facility] [address] [id number] [place] [address] Jan, [facility] [address] [id number] [place] [address] Jan, [facility] [address] [id number] [place] [address] 15 Jan, 2014 [facility] [address] [id number] [place] [address] 15 Jan, 2014 [facility] [address] [id number] [place] [address] 15 Jan, 2014 [facility] [address] [id number] [place] [address] Jan, [facility] [address] [id number] [place] [address] Jan, [facility] [address] [id number] [place] [address] Jan, [facility] [address] [id number] [place] [address] Jan, [facility] [address] [id number] [place] [address] Jan, [facility] [address] [id number] [place] [address] Jan, [facility] [place] [facility] [address] [id number] [place] [address] Jan, [facility] [place] [facility] [address] [id number] [place] [address] Jan, [facility] [place] [facility] [address] [id number] [place] [address] Jan, [facility] [place] [facility] [address] [id number] [place] [address] Jan, [facility] [place] [facility] [address] [id number] [place] [address] Dec, [facility] [place] [facility] [address] [id number] [place] [address] Dec, [facility] [place] [facility] [address] [id number] [place] [address] Dec, [facility] [place] [facility] [address] [id number] [place] [address] Dec, [facility] [place] [facility] [address] [id number] [place] [address] Dec, [facility] [place] [facility] [address] [id number] [place] [address] Dec, [facility] [place] [facility] [address] [id number] [place] [address] Dec, [facility] [place] [facility] [address] [id number] [place] [address] Dec, [facility] [place] [facility] [address] [id number] [place] [address] Dec, [facility] [place] [facility] [address] [id number] [place] [address] Dec, [facility] [place] [facility] [address] [id number] [place] [address] Dec, [facility] [place] [facility] [address] [id number] [place] [address] Dec, [facility] [place] [facility] [address] [id number], [place] [address] Dec, [facility] [place] [facility] [address] [id number] [place] [address] Dec, [facility] [place] [facility] [address] [id number] [place] [address] Dec, [facility] [place] [facility] [address] [id number], [place] [address] Dec, [facility] [place] [facility] [address] [id number], [place] [address] Dec, [facility] [place] [facility] [address] [id number] [place] [address] Dec, [facility] [place] [facility] [address] [id number] [place] [address] Dec, [facility] [place] [facility] [address] [id number] [place] [address] Dec, [facility] [place] [facility] [address] [id number] [place] [address] Nov, [facility] [place] [facility] [address] [id number] [place] [address] Nov, [facility] [place] [facility] [address] [id number] [place] [address] Nov, [facility] [place] [facility] [address] [id number] [place] [address] Nov, [facility] [place] [facility] [address] [id number] [place] [address] 15 Nov, 2013 [facility] [place] [facility] [address] [id number] [place] [address] Nov, [facility] [place] [facility] [address] [id number] [place] [address] Nov, [facility] [place] [facility] [address] [id number], [place] [address] Nov, [facility] [place] [facility] [address] [id number], [place] [address] Nov, [facility] [place] [facility] [address] [id number] [place] [address] Nov, [facility] [place] [facility] [address] [id number], [place] [address] Nov, [facility] [place] [facility] [address] [id number] [place] [address] Nov, [facility] [place] [facility] [address] [id number] [place] [address] 22 Oct, 2013 [facility] [place] [facility] [address] [id number] [place] [address] 22 Oct, 2013 [facility] [place] [facility] [address] [id number] [place] [address] 19 Oct, 2013 [facility] [place] [facility] [address] [id number] [place] [address] 19 Oct, 2013 [facility] [place] [facility] [address] [id number] [place] [address] 17 Oct, 2013 [facility] [place] [facility] [address] [id number] [place] [address] 17 Oct, 2013 [facility] [place] [facility] [address] [id number] [place] [address] 16 Oct, 2013 [facility] [place] [facility] [address] [id number] [place] [address] 16 Oct, 2013 [facility] [place] [facility] [address] [id number] [place] [address] Oct, 2013 [facility] [place] [facility] [address] [id number] [place] [address] Oct, 2013 [facility] [place] [facility] [address] [id number] [place] [address] Sep, [facility] [place] [facility] [address] [id number] [place] [address] Sep, [facility] [place] [facility] [address] [id number] [place] [address] Sep, [facility] [place] [facility] [address] [id number] [place] [address] Sep, [facility] [place] [facility] [address] [id number] [place] [address] Sep, [facility] [place] [facility] [address] [id number] [place] [address] Sep, [facility] [place] [facility] [address] [id number] [place] [address] Sep, [facility] [place] [facility] [address] [id number] [place] [address] Sep, [facility] [place] [facility] [address] [id number] [place] [address] Sep, [facility] [place] [facility] [address] [id number] [place] [address] Sep, [facility] [place] [facility] [address] [id number] [place] [address] Sep, [facility] [place] [facility] [address] [id number] [place] [address] Sep, [facility] [place] [facility] [address] [id number] [place] [address] Sep, [facility] [place] [facility] [address] [id number] [place] [address] Sep, [facility] [place] [facility] [address] [id number] [place] [address] Aug, [facility] [place] [facility] [address] [id number] [place] [address] Aug, [facility] [place] [facility] [address] [id number] [place] [address] Aug, [facility] [place] [facility] [address] [id number] [place] [address] Aug, [facility] [place] [facility] [address] [id number] [place] [address] Aug, [facility] [place] [facility] [address] [id number] [place] [address] Aug, [facility] [place] [facility] [address] [id number] [place] [address] Aug, [facility] [place] [facility] [address] [id number] [place] [address] Aug, [facility] [place] [facility] [address] [id number] [place] [address] Aug, [facility] [place] [facility] [address] [id number] [place] [address] Aug, [facility] [place] [facility] [address] [id number] [place] [address] Aug, [facility] [place] [facility] [address] [id number] [place] [address] Jul, [facility] [place] [facility] [address] [id number] [place] [address] Jul, [facility] [place] [facility] [address] [id number] [place] [address] Jul, [facility] [place] [facility] [address] [id number] [place] [address] Jul, [facility] [place] [facility] [address] [id number] [place] [address] Jul, [facility] [place] [facility] [address] [id number] [place] [address] Jul, [facility] [place] [facility] [address] [id number] [place] [address] Jul, [facility] [place] [facility] [address] [id number] [place] [address] Jul, [facility] [place] [facility] [address] [id number] [place] [address] Jul, [facility] [place] [facility] [address] [id number] [place] [address] Jul, [facility] [place] [facility] [address] [id number] [place] [address] June, [facility] [place] [facility] [address] [id number] [place] [address] June, [facility] [place] [facility] [address] [id number] [place] [address] June, [facility] [address] [id number] [place] [address] June, [facility] [place] [facility] [address] [id number] [place] [address] June, [facility] [place] [facility] [address] [id number] [place] [address] June, [facility] [address] [id number] [place] [address] June, [facility] [place] [facility] [address] [id number] [place] [address] June, [facility] [address] [id number] [place] [address] June, [facility] [address] [id number] [place] [address] June, [facility] [address] [id number] [place] [address] June, [facility] [place] [facility] [address] [id number] [place] [address] June, [facility] [place] [facility] [address] [id number] [place] [address] June, [facility] [place] [facility] [address] [id number] [place] [address] June, [facility] [place] [facility] [address] [id number] [place] [address] June, [facility] [place] [facility] [address] [id number] [place] [address] June, [facility] [place] [facility] [address] [id number] [place] [address] June, [facility] [place] [facility] [address] [id number] [place] [address] May, [facility] [place] [facility] [address] [id number] [place] [address] May, [facility] [place] [facility] [address] [id number] [place] [address] May, [facility] [place] [facility] [address] [id number] [place] [address] May, [facility] [place] [facility] [address] [id number] [place] [address] May, [facility] [place] [facility] [address] [id number] [place] [address] May, [facility] [place] [facility] [address] [id number] [place] [address] May, [facility] [place] [facility] [address] [id number] [place] [address] May, [facility] [place] [facility] [address] [id number] [place] [address] May, [facility] [place] [facility] [address] [id number] [place] [address] May, [facility] [place] [facility] [address] [id number] [place] [address] Apr, [facility] [place] [facility] [address] [id number] [place] [address] Apr, [facility] [place] [facility] [address] [id number] [place] [address] Apr, [facility] [place] [facility] [address] [id number] [place] [address] Apr, [facility] [place] [facility] [address] [id number] [place] [address] Apr, [facility] [place] [facility] [address] [id number] [place] [address] Apr, [facility] [place] [facility] [address] [id number] [place] [address] 13 Apr, 2013 [facility] [place] [facility] [address] [id number] [place] [address] 13 Apr, 2013 [facility] [place] [facility] [address] [id number] [place] [address] 07 Apr, 2013 [facility] [place] [facility] [address] [id number] [place] [address] Apr, [facility] [place] [facility] [address] [id number] [place] [address] Mar, [facility] [place] [facility] [address] [id number] [place] [address] Mar, [facility] [place] [facility] [address] [facility] [id number] [place] [address] Mar, [facility] [place] [facility] [address] [id number] [place] [address] Mar, [facility] [place] [facility] [address] [id number] [place] [address] Mar, [facility] [place] [facility] [address] [facility] [id number] [place] [address] Mar, [facility] [place] [facility] [address] [facility] [id number] [place] [address] Mar, [facility] [place] [facility] [address] [facility] [id number] [place] [address] Mar, [facility] [place] [facility] [address] [facility] [id number] [place] [address] Mar, [facility] [place] [facility] [address] [id number] [place] [address] Mar, [facility] [place] [facility] [address] [facility] [id number] [place] [address] 07 Mar, 2013 [facility] [place] [facility] [address] [facility] [id number] [place] [address] Mar, [facility] [address] [id number] [place] [address] Mar, [facility] [place] [facility] [address] [id number] [place] [address] Feb, [facility] [place] [facility] [address] [id number] [place] [address] Feb, [facility] [place] [facility] [address] [id number] [place] [address] Feb, [facility] [place] [facility] [address] [id number] [place] [address] Feb, [facility] [place] [facility] [address] [id number] [place] [address] Feb, [facility] [place] [facility] [address] [id number] [place] [address] Feb, [facility] [place] [facility] [address] [id number] [place] [address] Feb, [facility] [place] [facility] [address] [id number] [place] [address] Feb, [facility] [place] [facility] [address] [id number] [place] [address] Feb, [facility] [place] [facility] [address] [id number] [place] [address] Feb, [facility] [place] [facility] [address] [id number] [place] [address] Jan, [facility] [place] [facility] [address] [id number] [place] [address] Jan, [facility] [place] [facility] [address] [id number] [place] [address] Jan, [facility] [place] [facility] [address] [id number] [place] [address] Jan, [facility] [place] [facility] [address] [id number] [place] [address] Jan, [facility] [address] [id number] [place] [address] Jan, [facility] [place] [facility] [address] [id number] [place] [address] Jan, [facility] [address] [id number] [place] [address] Jan, [facility] [place] [facility] [address] [id number] [place] [address] Jan, [facility] [address] [id number] [place] [address] Jan, [facility] [place] [facility] [address] [id number] [place] [address] Jan, [facility] [place] [facility] [address] [id number] [place] [address] Jan, [facility] [address] [id number] [place] [address] Jan, [facility] [place] [facility] [address] [id number] [place] [address] Jan, [facility] [place] [facility] [address] [id number] [place] [address] Jan, [facility] [place] [facility] [address] [id number] [place] [address] Jan, [facility] [place] [facility] [address] [id number] [place] [address] Dec, [facility] [place] [facility] [address] [id number] [place] [address] Dec, [facility] [place] [facility] [address] [id number] [place] [address] Dec, [facility] [place] [facility] [address] [id number] [place] [address] Dec, [facility] [place] [facility] [address] [id number] [place] [address] 15 Dec, 2012 [facility] [place] [facility] [address] [id number] [place] [address] 15 Dec, 2012 [facility] [place] [facility] [address] [id number] [place] [address] Dec, [facility] [place] [facility] [address] [id number] [place] [address] Dec, [facility] [place] [facility] [address] [id number] [place] [address] Dec, [facility] [place] [facility] [address] [id number] [place] [address] Dec, [facility] [place] [facility] [address] [id number] [place] [address] Nov, [facility] [place] [facility] [address] [id number], [place] [address] 30 Nov, 2012 [facility] [place] [facility] [address] [id number] [place] [address] Nov, [facility] [place] [facility] [address] [id number], [place] [address] Nov, [facility] [place] [facility] [address] [id number], [place] [address] 18 Nov, 2012 [facility] [place] [facility] [address] [id number], [place] [address] 18 Nov, 2012 [facility] [place] [facility] [address] [id number] [place] [address] 14 Nov, 2012 [facility] [place] [facility] [address] [id number], [place] [address] 14 Nov, 2012 [facility] [place] [facility] [address] [id number], [place] [address] 09 Nov, 2012 [facility] [place] [facility] [address] [id number] [place] [address] 09 Nov, 2012 [facility] [address] [id number] [place] [address] 07 Nov, 2012 [facility] [place] [facility] [address] [id number] [place] [address] 05 Nov, 2012 [facility] [place] [facility] [address] [id number] [place] [address] 20 Oct, 2012 [facility] [place] [facility] [address] [id number] [place] [address] 20 Oct, 2012 [facility] [place] [facility] [address] [id number] [place] [address] 19 Oct, 2012 [facility] [place] [facility] [address] [id number] [place] [address] 18 Oct, 2012 [facility] [address] [id number] [place] [address] 13 Oct, 2012 [facility] [place] [facility] [address] [id number] [place] [address] 05 Oct, 2012 [facility] [place] [facility] [address] [id number] [place] [address] 04 Oct, 2012 [facility] [place] [facility] [address] [id number] [place] [address] 28 Sep, 2012 [facility] [place] [facility] [address] [id number] [place] [address] Sep, [facility] [place] [facility] [address] [id number] [place] [address] Sep, [facility] [place] [facility] [address] [id number] [place] [address] Sep, [facility] [place] [facility] [address] [id number] [place] [address] Sep, [facility] [place] [facility] [address] [id number] [place] [address] 08 Sep, 2012 [facility] [place] [facility] [address] [id number] [place] [address] Sep, [facility] [place] [facility] [address] [id number] [place] [address] Aug, [facility] [place] [facility] [address] [id number] [place] [address] Aug, [facility] [place] [facility] [address] [id number] [place] [address] Aug, [facility] [place] [facility] [address] [id number] [place] [address] Aug, [facility] [place] [facility] [address] [id number] [place] [address] Aug, [facility] [place] [facility] [address] [id number] [place] [address] Aug, [facility] [place] [facility] [address] [id number] [place] [address] Aug, [facility] [place] [facility] [address] [id number] [place] [address] Aug, [facility] [place] [facility] [address] [id number] [place] [address] Aug, [facility] [place] [facility] [address] [id number] [place] [address] Jul, [facility] [place] [facility] [address] [id number] [place] [address] Jul, [facility] [place] [facility] [address] [id number] [place] [address] Jul, [facility] [place] [facility] [address] [id number] [place] [address] Jul, [facility] [place] [facility] [address] [id number] [place] [address] Jul, [facility] [place] [facility] [address] [id number] [place] [address] Jul, [facility] [address] [id number] [place] [address] Jul, [facility] [address] [id number] [place] [address] June, [facility] [address] [id number] [place] [address] June, [facility] [address] [id number] [place] [address] June, [facility] [address] [id number] [place] [address] June, [facility] [address] [id number] [place] [address] June, [facility] [address] [id number] [place] [address] June, [facility] [address] [id number] [place] [address] June, [facility] [address] [id number] [place] [address] June, [facility] [address] [id number] [place] [address] May, [facility] [address] [id number] [place] [address] May, [facility] [place] [facility] [address] [id number] [place] [address] 16 May, 2012 [facility] [place] [facility] [address] [id number] [place] [address] 15 May, 2012 [facility] [place] [facility] [address] [id number] [place] [address] 08 May, 2012 [facility] [place] [facility] [address] [id number] [place] [address] May, [facility] [place] [facility] [address] [id number] [place] [address] 04 May, 2012 [facility] [address] [id number] [place] [address] May, [facility] [address] [id number] [place] [address] May, [facility] [address] [id number] [place] [address] May, [facility] [address] [id number] [place] [address] Apr, [facility] [address] [id number] [place] [address] 19 Apr, 2012 [facility] [address] [id number] [place] [address] 18 Apr, 2012 [facility] [address] [id number] [place] [address] 15 Apr, 2012 [facility] [address] [id number] [place] [address] 13 Apr, 2012 [facility] [address] [id number] [place] [address] 05 Apr, 2012 [facility] [address] [facility] [id number] [place] [address] 04 Apr, 2012 [facility] [address] [id number] [place] [address] 28 Mar, 2012 [facility] [address] [id number] [place] [address] Mar, [facility] [address] [id number] [place] [address] Mar, [facility] [address] [id number] [place] [address] Mar, [facility] [address] [id number] [place] [address] Mar, [facility] [place] [facility] [address] [id number] [place] [address] 07 Mar, 2012 [facility] [place] [facility] [address] [id number] [place] [address] 06 Mar, 2012 [facility] [place] [facility] [address] [id number] [place] [address] 05 Mar, 2012 [facility] [place] [facility] [address] [id number] [place] [address] Mar, [facility] [place] [facility] [address] [id number] [place] [address] Feb, [facility] [place] [facility] [address] [id number] [place] [address] Feb, [facility] [place] [facility] [address] [id number] [place] [address] Feb, [facility] [place] [facility] [address] [id number] [place] [address] Feb, [facility] [place] [facility] [address] [id number] [place] [address] Feb, [facility] [place] [facility] [address] [id number] [place] [address] Feb, [facility] [place] [facility] [address] [id number] [place] [address] Feb, [facility] [place] [facility] [address] [id number] [place] [address] Jan, [facility] [place] [facility] [address] [id number] [place] [address] Jan, [facility] [place] [facility] [address] [id number] [place] [address] Jan, [facility] [place] [facility] [address] [id number] [place] [address] Jan, [facility] [place] [facility] [address] [id number] [place] [address] 27 Jan, 2012 [facility] [address] [id number] [place] [address] 27 Jan, 2012 [facility] [place] [facility] [address] [id number] [place] [address] 14 Jan, 2012 [facility] [address] [id number] [place] [address] Jan, [facility] [place] [facility] [address] [id number] [place] [address] 10 Jan, 2012 [facility] [address] [id number] [place] [address] Jan, [facility] [address] [id number] [place] [address] 04 Jan, 2012 [facility] [address] [id number] [place] [address] Jan, [facility] [address] [id number] [place] [address] Jan, [facility] [place] [facility] [address] [id number] [place] [address] Dec, [facility] [address] [id number] [place] [address] 29 Dec, 2011 [facility] [place] [facility] [address] [id number] [place] [address] Dec, [facility] [place] [facility] [address] [id number] [place] [address] Dec, [facility] [place] [facility] [address] [id number] [place] [address] Dec, [facility] [place] [facility] [address] [id number] [place] [address] Dec, [facility] [place] [facility] [address] [id number] [place] [address] Dec, [facility] [place] [facility] [address] [id number] [place] [address] Dec, [facility] [place] [facility] [address] [id number] [place] [address] Dec, [facility] [place] [facility] [address] [id number] [place] [address] Dec, [facility] [place] [facility] [address] [id number] [place] [address] Dec, [facility] [place] [facility] [address] [id number] [place] [address] Dec, [facility] [place] [facility] [address] [id number] [place] [address] Dec, [facility] [place] [facility] [address] [id number] [place] [address] Dec, [facility] [place] [facility] [address] [id number], [place] [address] Nov, [facility] [place] [facility] [address] [id number] [place] [address] Nov, [facility] [place] [facility] [address] [facility] [id number], [place] [address] Nov, [facility] [place] [facility] [address] [id number], [place] [address] Nov, [facility] [place] [facility] [address] [id number], [place] [address] Nov, [facility] [place] [facility] [address] [id number], [place] [address] Nov, [facility] [place] [facility] [address] [id number], [place] [address] Nov, [facility] [place] [facility] [address] [facility] [id number], [place] [address] Nov, [facility] [place] [facility] [address] [id number], [place] [address] Nov, [facility] [place] [facility] [address] [id number] [place] [address] Nov, [facility] [place] [facility] [address] [id number] [place] [address] Nov, [facility] [place] [facility] [address] [facility] [id number] [place] [address] Nov, [facility] [place] [facility] [address] [id number] [place] [address] Nov, [facility] [place] [facility] [address] [id number] [place] [address] 25 Oct, 2011 [facility] [place] [facility] [address] [id number] [place] [address] 25 Oct, 2011 [facility] [place] [facility] [address] [facility] [id number] [place] [address] 24 Oct, 2011 [facility] [place] [facility] [address] [id number] [place] [address] 17 Oct, 2011 [facility] [place] [facility] [address] [id number] [place] [address] 14 Oct, 2011 [facility] [place] [facility] [address] [facility] [id number] [place] [address] 11 Oct, 2011 [facility] [place] [facility] [address] [id number] [place] [address] 06 Oct, 2011 [facility] [place] [facility] [address] [id number], [place] [address] Sep, [facility] [place] [facility] [address] [id number] [place] [address] Sep, [facility] [place] [facility] [address] [facility] [id number], [place] [address] Sep, [facility] [place] [facility] [address] [facility] [id number] [place] [address] Sep, [facility] [place] [facility] [address] [facility] [id number] [place] [address] Aug, IMMUNIZATIONS No Known Immunizations SOCIAL HISTORY Never Assessed REAS[place]IS[place] [place] VITAL SIGNS MEDICATIONS Unknown [...]
--- OUTSIDE RECORDS SUMMARY | 2018-07-22 18:50 | XMS REPORT ---
Author Author Migration, Doctor Organization [facility] Address Unknown Phone Unavailable Care Team Providers Care Drilling Inspector Name Role Phone Migration, Doctor Unavailable Unavailable PROBLEMS Type Condition ICD9-CM Code AOY03-HI Code Onset Dates Condition Status SNOMED Code Problem Loss of weight 783.21 Active 306365316 Problem Unspecified arthropathy, site unspecified 716.90 Active 811673440 Problem Lumbago 724.2 Active 133975606 Problem Depressive disorder, not elsewhere classified 311 Active 46211085 Problem Other abnormal glucose 790.29 Active 793603556 Problem Anxiety state, unspecified 300.00 Active 449486895 Problem Chronic airway obstruction, not elsewhere classified 496 Active 09253297 Problem 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 135621933 Problem Unspecified essential hypertension 401.9 Active 21409927 Problem Migraine, unspecified without mention of intractable migraine without mention of status migrainosus 346.90 Active 80673881 ALLERGIES No Information ENCOUNTERS Encounter Location Date Diagnosis [facility] [address] [address] Mar, [facility] [address] [address] Feb, Arthropathy, unspecified M12.9 [facility] [id number] [place] [address] Feb, [facility] [id number] [place] [address] Jan, [facility] [address] [address] Jan, [facility] [address] [address] Jan, [facility] [address] [address] Oct, 2014 [facility] [place] [facility] [address] [id number] [place] [address] 10 Oct, 2014 Lumbago 724.2 [facility] [place] [facility] [address] [id number] [place] [address] Oct, 2014 [facility] [place] [facility] [address] [id number] [place] [address] 08 Oct, 2014 [facility] [place] [facility] [address] [id number] [place] [address] 08 Oct, 2014 [facility] [place] [facility] [address] [id number] [place] [address] Oct, 2014 [facility] [place] [facility] [address] [id number] [place] [address] Oct, 2014 [facility] [place] [facility] [address] [id number] [place] [address] Oct, 2014 [facility] [place] [facility] [address] [id number] [place] [address] Sep, 2014 [facility] [place] [facility] [address] [id number] [place] [address] Sep, 2014 [facility] [place] [facility] [address] [id number] [place] [address] Aug, 2014 [facility] [place] [facility] [address] [id number] [place] [address] Aug, 2014 [facility] [place] [facility] [address] [id number] [place] [address] Aug, 2014 [facility] [place] [facility] [address] [id number] [place] [address] Aug, 2014 [facility] [place] [facility] [address] [id number] [place] [address] Aug, 2014 [facility] [place] [facility] [address] [id number] [place] [address] Aug2014 [facility] [place] [facility] [address] [facility] [id number] [address] Jul, Unspecified arthropathy, site unspecified 716.90 [facility] [address], [place] [address] Jul, [facility] [address], [place] [address] Jul, [facility] [address], [place] [address] June, Acute bronchitis 466.0 ; Unspecified arthropathy, site unspecified 716.90 and Chronic pain disorder 338.4 [facility] [address], [place] [address] June, [facility] [address], [place] [address] June, [facility] [address], [place] [address] June, [facility] [address], [place] [address] June, [facility] [address], [place] [address] May, [facility] [address] [id number] [address] May, [facility] [address] [id number], [place] [address] May, [facility] [address] [id number], [place] [address] Apr, [facility] [address], [place] [address] Apr, [facility] [address] [id number], [place] [address] Apr, [facility] [address], [place] [address] 12 Apr, 2014 [facility] [place] [facility] [address] [id number] [place] [address] Apr, 2014 [facility] [place] [facility] [address] [id number] [place] [address] 10 Apr, 2014 [facility] [place] [facility] [address] [facility] [id number] [place] [address] Apr, 2014 [facility] [place] [facility] [address] [id number] [place] [address] Apr, [facility] [place] [facility] [address] [id number] [place] [address] 24 Mar, 2014 [facility] [place] [facility] [address] [facility] [id number] [place] [address] 24 Mar, 2014 [facility] [place] [facility] [address] [facility] [id number] [place] [address] 17 Mar, 2014 [facility] [place] [facility] [address] [facility] [id number] [place] [address] 17 Mar, 2014 [facility] [place] [facility] [address] [facility] [id number] [place] [address] 17 Mar, 2014 [facility] [place] [facility] [address] [facility] [id number] [place] [address] 17 Mar, 2014 [facility] [place] [facility] [address] [facility] [id number] [place] [address] 13 Mar, 2014 [facility] [place] [facility] [address] [facility] [id number] [place] [address] 13 Mar, 2014 [facility] [place] [facility] [address] [facility] [id number] [place] [address] 13 Mar, 2014 [facility] [place] [facility] [address] [facility] [id number] [place] [address] 13 Mar, 2014 [facility] [place] [facility] [address] [facility] [id number] [place] [address] Mar, [facility] [place] [facility] [address] [id number] [place] [address] Mar, [facility] [place] [facility] [address] [id number] [place] [address] Mar, [facility] [place] [facility] [address] [id number] [place] [address] Mar, [facility] [place] [facility] [address] [id number] [place] [address] Mar, [facility] [place] [facility] [address] [id number] [place] [address] Feb, [facility] [place] [facility] [address] [id number] [place] [address] Feb, [facility] [place] [facility] [address] [id number] [place] [address] Feb, [facility] [place] [facility] [address] [id number] [place] [address] Feb, [facility] [place] [facility] [address] [id number] [place] [address] Feb, [facility] [place] [facility] [address] [id number] [place] [address] Feb, [facility] [place] [facility] [address] [id number] [place] [address] Feb, [facility] [place] [facility] [address] [id number], [place] [address] Feb, [facility] [place] [facility] [address] [id number] [place] [address] Feb, [facility] [place] [facility] [address] [id number] [place] [address] Feb, [facility] [place] [facility] [address] [id number] [place] [address] Feb, [facility] [place] [facility] [address] [id number] [place] [address] Jan, [facility] [address] [id number] [place] [address] Jan, [facility] [address] [id number] [place] [address] 15 Jan, 2014 [facility] [address] [id number] [place] [address] 15 Jan, 2014 [facility] [address] [id number] [place] [address] 15 Jan, 2014 [facility] [address] [id number] [place] [address] Jan, [facility] [address] [id number] [place] [address] Jan, [facility] [address] [id number] [place] [address] Jan, [facility] [address] [id number] [place] [address] Jan, [facility] [address] [id number] [place] [address] Jan, [facility] [address] [id number] [place] [address] Jan, [facility] [place] [facility] [address] [id number] [place] [address] Jan, [facility] [place] [facility] [address] [id number] [place] [address] Jan, [facility] [place] [facility] [address] [id number] [place] [address] Jan, [facility] [place] [facility] [address] [id number] [place] [address] Jan, [facility] [place] [facility] [address] [id number] [place] [address] Dec, [facility] [place] [facility] [address] [id number] [place] [address] Dec, [facility] [place] [facility] [address] [id number] [place] [address] Dec, [facility] [place] [facility] [address] [id number] [place] [address] Dec, [facility] [place] [facility] [address] [id number] [place] [address] Dec, [facility] [place] [facility] [address] [id number] [place] [address] Dec, [facility] [place] [facility] [address] [id number] [place] [address] Dec, [facility] [place] [facility] [address] [id number] [place] [address] Dec, [facility] [place] [facility] [address] [id number] [place] [address] Dec, [facility] [place] [facility] [address] [id number] [place] [address] Dec, [facility] [place] [facility] [address] [id number] [place] [address] Dec, [facility] [place] [facility] [address] [id number] [place] [address] Dec, [facility] [place] [facility] [address] [id number], [place] [address] Dec, [facility] [place] [facility] [address] [id number] [place] [address] Dec, [facility] [place] [facility] [address] [id number] [place] [address] Dec, [facility] [place] [facility] [address] [id number], [place] [address] Dec, [facility] [place] [facility] [address] [id number], [place] [address] Dec, [facility] [place] [facility] [address] [id number] [place] [address] Dec, [facility] [place] [facility] [address] [id number] [place] [address] Dec, [facility] [place] [facility] [address] [id number] [place] [address] Dec, [facility] [place] [facility] [address] [id number] [place] [address] Nov, [facility] [place] [facility] [address] [id number] [place] [address] Nov, [facility] [place] [facility] [address] [id number] [place] [address] Nov, [facility] [place] [facility] [address] [id number] [place] [address] Nov, [facility] [place] [facility] [address] [id number] [place] [address] 15 Nov, 2013 [facility] [place] [facility] [address] [id number] [place] [address] Nov, [facility] [place] [facility] [address] [id number] [place] [address] Nov, [facility] [place] [facility] [address] [id number], [place] [address] Nov, [facility] [place] [facility] [address] [id number], [place] [address] Nov, [facility] [place] [facility] [address] [id number] [place] [address] Nov, [facility] [place] [facility] [address] [id number], [place] [address] Nov, [facility] [place] [facility] [address] [id number] [place] [address] Nov, [facility] [place] [facility] [address] [id number] [place] [address] 22 Oct, 2013 [facility] [place] [facility] [address] [id number] [place] [address] 22 Oct, 2013 [facility] [place] [facility] [address] [id number] [place] [address] 19 Oct, 2013 [facility] [place] [facility] [address] [id number] [place] [address] 19 Oct, 2013 [facility] [place] [facility] [address] [id number] [place] [address] 17 Oct, 2013 [facility] [place] [facility] [address] [id number] [place] [address] 17 Oct, 2013 [facility] [place] [facility] [address] [id number] [place] [address] 16 Oct, 2013 [facility] [place] [facility] [address] [id number] [place] [address] 16 Oct, 2013 [facility] [place] [facility] [address] [id number] [place] [address] Oct, 2013 [facility] [place] [facility] [address] [id number] [place] [address] Oct, 2013 [facility] [place] [facility] [address] [id number] [place] [address] Sep, [facility] [place] [facility] [address] [id number] [place] [address] Sep, [facility] [place] [facility] [address] [id number] [place] [address] Sep, [facility] [place] [facility] [address] [id number] [place] [address] Sep, [facility] [place] [facility] [address] [id number] [place] [address] Sep, [facility] [place] [facility] [address] [id number] [place] [address] Sep, [facility] [place] [facility] [address] [id number] [place] [address] Sep, [facility] [place] [facility] [address] [id number] [place] [address] Sep, [facility] [place] [facility] [address] [id number] [place] [address] Sep, [facility] [place] [facility] [address] [id number] [place] [address] Sep, [facility] [place] [facility] [address] [id number] [place] [address] Sep, [facility] [place] [facility] [address] [id number] [place] [address] Sep, [facility] [place] [facility] [address] [id number] [place] [address] Sep, [facility] [place] [facility] [address] [id number] [place] [address] Sep, [facility] [place] [facility] [address] [id number] [place] [address] Aug, [facility] [place] [facility] [address] [id number] [place] [address] Aug, [facility] [place] [facility] [address] [id number] [place] [address] Aug, [facility] [place] [facility] [address] [id number] [place] [address] Aug, [facility] [place] [facility] [address] [id number] [place] [address] Aug, [facility] [place] [facility] [address] [id number] [place] [address] Aug, [facility] [place] [facility] [address] [id number] [place] [address] Aug, [facility] [place] [facility] [address] [id number] [place] [address] Aug, [facility] [place] [facility] [address] [id number] [place] [address] Aug, [facility] [place] [facility] [address] [id number] [place] [address] Aug, [facility] [place] [facility] [address] [id number] [place] [address] Aug, [facility] [place] [facility] [address] [id number] [place] [address] Jul, [facility] [place] [facility] [address] [id number] [place] [address] Jul, [facility] [place] [facility] [address] [id number] [place] [address] Jul, [facility] [place] [facility] [address] [id number] [place] [address] Jul, [facility] [place] [facility] [address] [id number] [place] [address] Jul, [facility] [place] [facility] [address] [id number] [place] [address] Jul, [facility] [place] [facility] [address] [id number] [place] [address] Jul, [facility] [place] [facility] [address] [id number] [place] [address] Jul, [facility] [place] [facility] [address] [id number] [place] [address] Jul, [facility] [place] [facility] [address] [id number] [place] [address] Jul, [facility] [place] [facility] [address] [id number] [place] [address] June, [facility] [place] [facility] [address] [id number] [place] [address] June, [facility] [place] [facility] [address] [id number] [place] [address] June, [facility] [address] [id number] [place] [address] June, [facility] [place] [facility] [address] [id number] [place] [address] June, [facility] [place] [facility] [address] [id number] [place] [address] June, [facility] [address] [id number] [place] [address] June, [facility] [place] [facility] [address] [id number] [place] [address] June, [facility] [address] [id number] [place] [address] June, [facility] [address] [id number] [place] [address] June, [facility] [address] [id number] [place] [address] June, [facility] [place] [facility] [address] [id number] [place] [address] June, [facility] [place] [facility] [address] [id number] [place] [address] June, [facility] [place] [facility] [address] [id number] [place] [address] June, [facility] [place] [facility] [address] [id number] [place] [address] June, [facility] [place] [facility] [address] [id number] [place] [address] June, [facility] [place] [facility] [address] [id number] [place] [address] June, [facility] [place] [facility] [address] [id number] [place] [address] May, [facility] [place] [facility] [address] [id number] [place] [address] May, [facility] [place] [facility] [address] [id number] [place] [address] May, [facility] [place] [facility] [address] [id number] [place] [address] May, [facility] [place] [facility] [address] [id number] [place] [address] May, [facility] [place] [facility] [address] [id number] [place] [address] May, [facility] [place] [facility] [address] [id number] [place] [address] May, [facility] [place] [facility] [address] [id number] [place] [address] May, [facility] [place] [facility] [address] [id number] [place] [address] May, [facility] [place] [facility] [address] [id number] [place] [address] May, [facility] [place] [facility] [address] [id number] [place] [address] Apr, [facility] [place] [facility] [address] [id number] [place] [address] Apr, [facility] [place] [facility] [address] [id number] [place] [address] Apr, [facility] [place] [facility] [address] [id number] [place] [address] Apr, [facility] [place] [facility] [address] [id number] [place] [address] Apr, [facility] [place] [facility] [address] [id number] [place] [address] Apr, [facility] [place] [facility] [address] [id number] [place] [address] 13 Apr, 2013 [facility] [place] [facility] [address] [id number] [place] [address] 13 Apr, 2013 [facility] [place] [facility] [address] [id number] [place] [address] 07 Apr, 2013 [facility] [place] [facility] [address] [id number] [place] [address] Apr, [facility] [place] [facility] [address] [id number] [place] [address] Mar, [facility] [place] [facility] [address] [id number] [place] [address] Mar, [facility] [place] [facility] [address] [facility] [id number] [place] [address] Mar, [facility] [place] [facility] [address] [id number] [place] [address] Mar, [facility] [place] [facility] [address] [id number] [place] [address] Mar, [facility] [place] [facility] [address] [facility] [id number] [place] [address] Mar, [facility] [place] [facility] [address] [facility] [id number] [place] [address] Mar, [facility] [place] [facility] [address] [facility] [id number] [place] [address] Mar, [facility] [place] [facility] [address] [facility] [id number] [place] [address] Mar, [facility] [place] [facility] [address] [id number] [place] [address] Mar, [facility] [place] [facility] [address] [facility] [id number] [place] [address] 07 Mar, 2013 [facility] [place] [facility] [address] [facility] [id number] [place] [address] Mar, [facility] [address] [id number] [place] [address] Mar, [facility] [place] [facility] [address] [id number] [place] [address] Feb, [facility] [place] [facility] [address] [id number] [place] [address] Feb, [facility] [place] [facility] [address] [id number] [place] [address] Feb, [facility] [place] [facility] [address] [id number] [place] [address] Feb, [facility] [place] [facility] [address] [id number] [place] [address] Feb, [facility] [place] [facility] [address] [id number] [place] [address] Feb, [facility] [place] [facility] [address] [id number] [place] [address] Feb, [facility] [place] [facility] [address] [id number] [place] [address] Feb, [facility] [place] [facility] [address] [id number] [place] [address] Feb, [facility] [place] [facility] [address] [id number] [place] [address] Feb, [facility] [place] [facility] [address] [id number] [place] [address] Jan, [facility] [place] [facility] [address] [id number] [place] [address] Jan, [facility] [place] [facility] [address] [id number] [place] [address] Jan, [facility] [place] [facility] [address] [id number] [place] [address] Jan, [facility] [place] [facility] [address] [id number] [place] [address] Jan, [facility] [address] [id number] [place] [address] Jan, [facility] [place] [facility] [address] [id number] [place] [address] Jan, [facility] [address] [id number] [place] [address] Jan, [facility] [place] [facility] [address] [id number] [place] [address] Jan, [facility] [address] [id number] [place] [address] Jan, [facility] [place] [facility] [address] [id number] [place] [address] Jan, [facility] [place] [facility] [address] [id number] [place] [address] Jan, [facility] [address] [id number] [place] [address] Jan, [facility] [place] [facility] [address] [id number] [place] [address] Jan, [facility] [place] [facility] [address] [id number] [place] [address] Jan, [facility] [place] [facility] [address] [id number] [place] [address] Jan, [facility] [place] [facility] [address] [id number] [place] [address] Dec, [facility] [place] [facility] [address] [id number] [place] [address] Dec, [facility] [place] [facility] [address] [id number] [place] [address] Dec, [facility] [place] [facility] [address] [id number] [place] [address] Dec, [facility] [place] [facility] [address] [id number] [place] [address] 15 Dec, 2012 [facility] [place] [facility] [address] [id number] [place] [address] 15 Dec, 2012 [facility] [place] [facility] [address] [id number] [place] [address] Dec, [facility] [place] [facility] [address] [id number] [place] [address] Dec, [facility] [place] [facility] [address] [id number] [place] [address] Dec, [facility] [place] [facility] [address] [id number] [place] [address] Dec, [facility] [place] [facility] [address] [id number] [place] [address] Nov, [facility] [place] [facility] [address] [id number], [place] [address] 30 Nov, 2012 [facility] [place] [facility] [address] [id number] [place] [address] Nov, [facility] [place] [facility] [address] [id number], [place] [address] Nov, [facility] [place] [facility] [address] [id number], [place] [address] 18 Nov, 2012 [facility] [place] [facility] [address] [id number], [place] [address] 18 Nov, 2012 [facility] [place] [facility] [address] [id number] [place] [address] 14 Nov, 2012 [facility] [place] [facility] [address] [id number], [place] [address] 14 Nov, 2012 [facility] [place] [facility] [address] [id number], [place] [address] 09 Nov, 2012 [facility] [place] [facility] [address] [id number] [place] [address] 09 Nov, 2012 [facility] [address] [id number] [place] [address] 07 Nov, 2012 [facility] [place] [facility] [address] [id number] [place] [address] 05 Nov, 2012 [facility] [place] [facility] [address] [id number] [place] [address] 20 Oct, 2012 [facility] [place] [facility] [address] [id number] [place] [address] 20 Oct, 2012 [facility] [place] [facility] [address] [id number] [place] [address] 19 Oct, 2012 [facility] [place] [facility] [address] [id number] [place] [address] 18 Oct, 2012 [facility] [address] [id number] [place] [address] 13 Oct, 2012 [facility] [place] [facility] [address] [id number] [place] [address] 05 Oct, 2012 [facility] [place] [facility] [address] [id number] [place] [address] 04 Oct, 2012 [facility] [place] [facility] [address] [id number] [place] [address] 28 Sep, 2012 [facility] [place] [facility] [address] [id number] [place] [address] Sep, [facility] [place] [facility] [address] [id number] [place] [address] Sep, [facility] [place] [facility] [address] [id number] [place] [address] Sep, [facility] [place] [facility] [address] [id number] [place] [address] Sep, [facility] [place] [facility] [address] [id number] [place] [address] 08 Sep, 2012 [facility] [place] [facility] [address] [id number] [place] [address] Sep, [facility] [place] [facility] [address] [id number] [place] [address] Aug, [facility] [place] [facility] [address] [id number] [place] [address] Aug, [facility] [place] [facility] [address] [id number] [place] [address] Aug, [facility] [place] [facility] [address] [id number] [place] [address] Aug, [facility] [place] [facility] [address] [id number] [place] [address] Aug, [facility] [place] [facility] [address] [id number] [place] [address] Aug, [facility] [place] [facility] [address] [id number] [place] [address] Aug, [facility] [place] [facility] [address] [id number] [place] [address] Aug, [facility] [place] [facility] [address] [id number] [place] [address] Aug, [facility] [place] [facility] [address] [id number] [place] [address] Jul, [facility] [place] [facility] [address] [id number] [place] [address] Jul, [facility] [place] [facility] [address] [id number] [place] [address] Jul, [facility] [place] [facility] [address] [id number] [place] [address] Jul, [facility] [place] [facility] [address] [id number] [place] [address] Jul, [facility] [place] [facility] [address] [id number] [place] [address] Jul, [facility] [address] [id number] [place] [address] Jul, [facility] [address] [id number] [place] [address] June, [facility] [address] [id number] [place] [address] June, [facility] [address] [id number] [place] [address] June, [facility] [address] [id number] [place] [address] June, [facility] [address] [id number] [place] [address] June, [facility] [address] [id number] [place] [address] June, [facility] [address] [id number] [place] [address] June, [facility] [address] [id number] [place] [address] June, [facility] [address] [id number] [place] [address] May, [facility] [address] [id number] [place] [address] May, [facility] [place] [facility] [address] [id number] [place] [address] 16 May, 2012 [facility] [place] [facility] [address] [id number] [place] [address] 15 May, 2012 [facility] [place] [facility] [address] [id number] [place] [address] 08 May, 2012 [facility] [place] [facility] [address] [id number] [place] [address] May, [facility] [place] [facility] [address] [id number] [place] [address] 04 May, 2012 [facility] [address] [id number] [place] [address] May, [facility] [address] [id number] [place] [address] May, [facility] [address] [id number] [place] [address] May, [facility] [address] [id number] [place] [address] Apr, [facility] [address] [id number] [place] [address] 19 Apr, 2012 [facility] [address] [id number] [place] [address] 18 Apr, 2012 [facility] [address] [id number] [place] [address] 15 Apr, 2012 [facility] [address] [id number] [place] [address] 13 Apr, 2012 [facility] [address] [id number] [place] [address] 05 Apr, 2012 [facility] [address] [facility] [id number] [place] [address] 04 Apr, 2012 [facility] [address] [id number] [place] [address] 28 Mar, 2012 [facility] [address] [id number] [place] [address] Mar, [facility] [address] [id number] [place] [address] Mar, [facility] [address] [id number] [place] [address] Mar, [facility] [address] [id number] [place] [address] Mar, [facility] [place] [facility] [address] [id number] [place] [address] 07 Mar, 2012 [facility] [place] [facility] [address] [id number] [place] [address] 06 Mar, 2012 [facility] [place] [facility] [address] [id number] [place] [address] 05 Mar, 2012 [facility] [place] [facility] [address] [id number] [place] [address] Mar, [facility] [place] [facility] [address] [id number] [place] [address] Feb, [facility] [place] [facility] [address] [id number] [place] [address] Feb, [facility] [place] [facility] [address] [id number] [place] [address] Feb, [facility] [place] [facility] [address] [id number] [place] [address] Feb, [facility] [place] [facility] [address] [id number] [place] [address] Feb, [facility] [place] [facility] [address] [id number] [place] [address] Feb, [facility] [place] [facility] [address] [id number] [place] [address] Feb, [facility] [place] [facility] [address] [id number] [place] [address] Jan, [facility] [place] [facility] [address] [id number] [place] [address] Jan, [facility] [place] [facility] [address] [id number] [place] [address] Jan, [facility] [place] [facility] [address] [id number] [place] [address] Jan, [facility] [place] [facility] [address] [id number] [place] [address] 27 Jan, 2012 [facility] [address] [id number] [place] [address] 27 Jan, 2012 [facility] [place] [facility] [address] [id number] [place] [address] 14 Jan, 2012 [facility] [address] [id number] [place] [address] Jan, [facility] [place] [facility] [address] [id number] [place] [address] 10 Jan, 2012 [facility] [address] [id number] [place] [address] Jan, [facility] [address] [id number] [place] [address] 04 Jan, 2012 [facility] [address] [id number] [place] [address] Jan, [facility] [address] [id number] [place] [address] Jan, [facility] [place] [facility] [address] [id number] [place] [address] Dec, [facility] [address] [id number] [place] [address] 29 Dec, 2011 [facility] [place] [facility] [address] [id number] [place] [address] Dec, [facility] [place] [facility] [address] [id number] [place] [address] Dec, [facility] [place] [facility] [address] [id number] [place] [address] Dec, [facility] [place] [facility] [address] [id number] [place] [address] Dec, [facility] [place] [facility] [address] [id number] [place] [address] Dec, [facility] [place] [facility] [address] [id number] [place] [address] Dec, [facility] [place] [facility] [address] [id number] [place] [address] Dec, [facility] [place] [facility] [address] [id number] [place] [address] Dec, [facility] [place] [facility] [address] [id number] [place] [address] Dec, [facility] [place] [facility] [address] [id number] [place] [address] Dec, [facility] [place] [facility] [address] [id number] [place] [address] Dec, [facility] [place] [facility] [address] [id number] [place] [address] Dec, [facility] [place] [facility] [address] [id number], [place] [address] Nov, [facility] [place] [facility] [address] [id number] [place] [address] Nov, [facility] [place] [facility] [address] [facility] [id number], [place] [address] Nov, [facility] [place] [facility] [address] [id number], [place] [address] Nov, [facility] [place] [facility] [address] [id number], [place] [address] Nov, [facility] [place] [facility] [address] [id number], [place] [address] Nov, [facility] [place] [facility] [address] [id number], [place] [address] Nov, [facility] [place] [facility] [address] [facility] [id number], [place] [address] Nov, [facility] [place] [facility] [address] [id number], [place] [address] Nov, [facility] [place] [facility] [address] [id number] [place] [address] Nov, [facility] [place] [facility] [address] [id number] [place] [address] Nov, [facility] [place] [facility] [address] [facility] [id number] [place] [address] Nov, [facility] [place] [facility] [address] [id number] [place] [address] Nov, [facility] [place] [facility] [address] [id number] [place] [address] 25 Oct, 2011 [facility] [place] [facility] [address] [id number] [place] [address] 25 Oct, 2011 [facility] [place] [facility] [address] [facility] [id number] [place] [address] 24 Oct, 2011 [facility] [place] [facility] [address] [id number] [place] [address] 17 Oct, 2011 [facility] [place] [facility] [address] [id number] [place] [address] 14 Oct, 2011 [facility] [place] [facility] [address] [facility] [id number] [place] [address] 11 Oct, 2011 [facility] [place] [facility] [address] [id number] [place] [address] 06 Oct, 2011 [facility] [place] [facility] [address] [id number], [place] [address] Sep, [facility] [place] [facility] [address] [id number] [place] [address] Sep, [facility] [place] [facility] [address] [facility] [id number], [place] [address] Sep, [facility] [place] [facility] [address] [facility] [id number] [place] [address] Sep, [facility] [place] [facility] [address] [facility] [id number] [place] [address] Aug, IMMUNIZATIONS No Known Immunizations SOCIAL HISTORY Never Assessed REASON FOR VISIT [place] [place]ARE VITAL SIGNS MEDICATIONS Unknown [...]
--- OUTSIDE RECORDS SUMMARY | 2018-07-22 18:51 | XMS REPORT ---
Author Author Migration, Doctor Organization [facility] Address Unknown Phone Unavailable Care Team Providers Care Iron Assorter Name Role Phone Migration, Doctor Unavailable Unavailable PROBLEMS Type Condition ICD9-CM Code [id number] Code Onset Dates Condition Status SNOMED Code Problem Loss of weight 783.21 Active 657749448 Problem Unspecified arthropathy, site unspecified 716.90 Active 860661520 Problem Lumbago 724.2 Active 604937273 Problem Depressive disorder, not elsewhere classified 311 Active 86078409 Problem Other abnormal glucose 790.29 Active 762581048 Problem Anxiety state, unspecified 300.00 Active 067776798 Problem Chronic airway obstruction, not elsewhere classified 496 Active 86435035 Problem 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 069012823 Problem Unspecified essential hypertension 401.9 Active 43488024 Problem Migraine, unspecified without mention of intractable migraine without mention of status migrainosus 346.90 Active 73602902 ALLERGIES No Information ENCOUNTERS Encounter Location Date Diagnosis [facility] [address] [address] Mar, [facility] [address] [address] Feb, Arthropathy, unspecified M12.9 [facility] [id number] [place] [address] Feb, [facility] [id number] [place] [address] Jan, [facility] [address] [address] Jan, [facility] [address] [address] Jan, [facility] [address] [address] Oct, 2014 [facility] [place] [facility] [address] [id number] [place] [address] 10 Oct, 2014 Lumbago 724.2 [facility] [place] [facility] [address] [id number] [place] [address] Oct, 2014 [facility] [place] [facility] [address] [id number] [place] [address] 08 Oct, 2014 [facility] [place] [facility] [address] [id number] [place] [address] 08 Oct, 2014 [facility] [place] [facility] [address] [id number] [place] [address] Oct, 2014 [facility] [place] [facility] [address] [id number] [place] [address] Oct, 2014 [facility] [place] [facility] [address] [id number] [place] [address] Oct, 2014 [facility] [place] [facility] [address] [id number] [place] [address] Sep, 2014 [facility] [place] [facility] [address] [id number] [place] [address] Sep, 2014 [facility] [place] [facility] [address] [id number] [place] [address] Aug, 2014 [facility] [place] [facility] [address] [id number] [place] [address] Aug, 2014 [facility] [place] [facility] [address] [id number] [place] [address] Aug, 2014 [facility] [place] [facility] [address] [id number] [place] [address] Aug, 2014 [facility] [place] [facility] [address] [id number] [place] [address] Aug, 2014 [facility] [place] [facility] [address] [id number] [place] [address] Aug2014 [facility] [place] [facility] [address] [facility] [id number] [address] Jul, Unspecified arthropathy, site unspecified 716.90 [facility] [address] [address] Jul, [facility] [address] [address] Jul, [facility] [id number] [address] June, Acute bronchitis 466.0 ; Unspecified arthropathy, site unspecified 716.90 and Chronic pain disorder 338.4 [facility] [address] [address] June, [facility] [address] [address] June, [facility] [address] [address] June, [facility] [id number] [address] June, [facility] [id number] [address] May, [facility] [address] [id number] [address] May, [facility] [address] [id number] [address] May, [facility] [address] [id number] [address] Apr, [facility] [id number] [address] Apr, [facility] [id number] [address] Apr, [facility] [address], [place] [address] 12 Apr, 2014 [facility] [place] [facility] [address] [id number] [place] [address] Apr, 2014 [facility] [place] [facility] [address] [id number] [place] [address] 10 Apr, 2014 [facility] [place] [facility] [address] [facility] [id number] [place] [address] Apr, 2014 [facility] [place] [facility] [address] [id number] [place] [address] Apr, [facility] [place] [facility] [address] [id number] [place] [address] 24 Mar, 2014 [facility] [place] [facility] [address] [facility] [id number] [place] [address] 24 Mar, 2014 [facility] [place] [facility] [address] [facility] [id number] [place] [address] 17 Mar, 2014 [facility] [place] [facility] [address] [facility] [id number] [place] [address] 17 Mar, 2014 [facility] [place] [facility] [address] [facility] [id number] [place] [address] 17 Mar, 2014 [facility] [place] [facility] [address] [facility] [id number] [place] [address] 17 Mar, 2014 [facility] [place] [facility] [address] [facility] [id number] [place] [address] 13 Mar, 2014 [facility] [place] [facility] [address] [facility] [id number] [place] [address] 13 Mar, 2014 [facility] [place] [facility] [address] [facility] [id number] [place] [address] 13 Mar, 2014 [facility] [place] [facility] [address] [facility] [id number] [place] [address] 13 Mar, 2014 [facility] [place] [facility] [address] [facility] [id number] [place] [address] Mar, [facility] [place] [facility] [address] [id number] [place] [address] Mar, [facility] [place] [facility] [address] [id number] [place] [address] Mar, [facility] [place] [facility] [address] [id number] [place] [address] Mar, [facility] [place] [facility] [address] [id number] [place] [address] Mar, [facility] [place] [facility] [address] [id number] [place] [address] Feb, [facility] [place] [facility] [address] [id number] [place] [address] Feb, [facility] [place] [facility] [address] [id number] [place] [address] Feb, [facility] [place] [facility] [address] [id number] [place] [address] Feb, [facility] [place] [facility] [address] [id number] [place] [address] Feb, [facility] [place] [facility] [address] [id number] [place] [address] Feb, [facility] [place] [facility] [address] [id number] [place] [address] Feb, [facility] [place] [facility] [address] [id number], [place] [address] Feb, [facility] [place] [facility] [address] [id number] [place] [address] Feb, [facility] [place] [facility] [address] [id number] [place] [address] Feb, [facility] [place] [facility] [address] [id number] [place] [address] Feb, [facility] [place] [facility] [address] [id number] [place] [address] Jan, [facility] [address] [id number] [place] [address] Jan, [facility] [address] [id number] [place] [address] 15 Jan, 2014 [facility] [address] [id number] [place] [address] 15 Jan, 2014 [facility] [address] [id number] [place] [address] 15 Jan, 2014 [facility] [address] [id number] [place] [address] Jan, [facility] [address] [id number] [place] [address] Jan, [facility] [address] [id number] [place] [address] Jan, [facility] [address] [id number] [place] [address] Jan, [facility] [address] [id number] [place] [address] Jan, [facility] [address] [id number] [place] [address] Jan, [facility] [place] [facility] [address] [id number] [place] [address] Jan, [facility] [place] [facility] [address] [id number] [place] [address] Jan, [facility] [place] [facility] [address] [id number] [place] [address] Jan, [facility] [place] [facility] [address] [id number] [place] [address] Jan, [facility] [place] [facility] [address] [id number] [place] [address] Dec, [facility] [place] [facility] [address] [id number] [place] [address] Dec, [facility] [place] [facility] [address] [id number] [place] [address] Dec, [facility] [place] [facility] [address] [id number] [place] [address] Dec, [facility] [place] [facility] [address] [id number] [place] [address] Dec, [facility] [place] [facility] [address] [id number] [place] [address] Dec, [facility] [place] [facility] [address] [id number] [place] [address] Dec, [facility] [place] [facility] [address] [id number] [place] [address] Dec, [facility] [place] [facility] [address] [id number] [place] [address] Dec, [facility] [place] [facility] [address] [id number] [place] [address] Dec, [facility] [place] [facility] [address] [id number] [place] [address] Dec, [facility] [place] [facility] [address] [id number] [place] [address] Dec, [facility] [place] [facility] [address] [id number], [place] [address] Dec, [facility] [place] [facility] [address] [id number] [place] [address] Dec, [facility] [place] [facility] [address] [id number] [place] [address] Dec, [facility] [place] [facility] [address] [id number], [place] [address] Dec, [facility] [place] [facility] [address] [id number], [place] [address] Dec, [facility] [place] [facility] [address] [id number] [place] [address] Dec, [facility] [place] [facility] [address] [id number] [place] [address] Dec, [facility] [place] [facility] [address] [id number] [place] [address] Dec, [facility] [place] [facility] [address] [id number] [place] [address] Nov, [facility] [place] [facility] [address] [id number] [place] [address] Nov, [facility] [place] [facility] [address] [id number] [place] [address] Nov, [facility] [place] [facility] [address] [id number] [place] [address] Nov, [facility] [place] [facility] [address] [id number] [place] [address] 15 Nov, 2013 [facility] [place] [facility] [address] [id number] [place] [address] Nov, [facility] [place] [facility] [address] [id number] [place] [address] Nov, [facility] [place] [facility] [address] [id number], [place] [address] Nov, [facility] [place] [facility] [address] [id number], [place] [address] Nov, [facility] [place] [facility] [address] [id number] [place] [address] Nov, [facility] [place] [facility] [address] [id number], [place] [address] Nov, [facility] [place] [facility] [address] [id number] [place] [address] Nov, [facility] [place] [facility] [address] [id number] [place] [address] 22 Oct, 2013 [facility] [place] [facility] [address] [id number] [place] [address] 22 Oct, 2013 [facility] [place] [facility] [address] [id number] [place] [address] 19 Oct, 2013 [facility] [place] [facility] [address] [id number] [place] [address] 19 Oct, 2013 [facility] [place] [facility] [address] [id number] [place] [address] 17 Oct, 2013 [facility] [place] [facility] [address] [id number] [place] [address] 17 Oct, 2013 [facility] [place] [facility] [address] [id number] [place] [address] 16 Oct, 2013 [facility] [place] [facility] [address] [id number] [place] [address] 16 Oct, 2013 [facility] [place] [facility] [address] [id number] [place] [address] Oct, 2013 [facility] [place] [facility] [address] [id number] [place] [address] Oct, 2013 [facility] [place] [facility] [address] [id number] [place] [address] Sep, [facility] [place] [facility] [address] [id number] [place] [address] Sep, [facility] [place] [facility] [address] [id number] [place] [address] Sep, [facility] [place] [facility] [address] [id number] [place] [address] Sep, [facility] [place] [facility] [address] [id number] [place] [address] Sep, [facility] [place] [facility] [address] [id number] [place] [address] Sep, [facility] [place] [facility] [address] [id number] [place] [address] Sep, [facility] [place] [facility] [address] [id number] [place] [address] Sep, [facility] [place] [facility] [address] [id number] [place] [address] Sep, [facility] [place] [facility] [address] [id number] [place] [address] Sep, [facility] [place] [facility] [address] [id number] [place] [address] Sep, [facility] [place] [facility] [address] [id number] [place] [address] Sep, [facility] [place] [facility] [address] [id number] [place] [address] Sep, [facility] [place] [facility] [address] [id number] [place] [address] Sep, [facility] [place] [facility] [address] [id number] [place] [address] Aug, [facility] [place] [facility] [address] [id number] [place] [address] Aug, [facility] [place] [facility] [address] [id number] [place] [address] Aug, [facility] [place] [facility] [address] [id number] [place] [address] Aug, [facility] [place] [facility] [address] [id number] [place] [address] Aug, [facility] [place] [facility] [address] [id number] [place] [address] Aug, [facility] [place] [facility] [address] [id number] [place] [address] Aug, [facility] [place] [facility] [address] [id number] [place] [address] Aug, [facility] [place] [facility] [address] [id number] [place] [address] Aug, [facility] [place] [facility] [address] [id number] [place] [address] Aug, [facility] [place] [facility] [address] [id number] [place] [address] Aug, [facility] [place] [facility] [address] [id number] [place] [address] Jul, [facility] [place] [facility] [address] [id number] [place] [address] Jul, [facility] [place] [facility] [address] [id number] [place] [address] Jul, [facility] [place] [facility] [address] [id number] [place] [address] Jul, [facility] [place] [facility] [address] [id number] [place] [address] Jul, [facility] [place] [facility] [address] [id number] [place] [address] Jul, [facility] [place] [facility] [address] [id number] [place] [address] Jul, [facility] [place] [facility] [address] [id number] [place] [address] Jul, [facility] [place] [facility] [address] [id number] [place] [address] Jul, [facility] [place] [facility] [address] [id number] [place] [address] Jul, [facility] [place] [facility] [address] [id number] [place] [address] June, [facility] [place] [facility] [address] [id number] [place] [address] June, [facility] [place] [facility] [address] [id number] [place] [address] June, [facility] [address] [id number] [place] [address] June, [facility] [place] [facility] [address] [id number] [place] [address] June, [facility] [place] [facility] [address] [id number] [place] [address] June, [facility] [address] [id number] [place] [address] June, [facility] [place] [facility] [address] [id number] [place] [address] June, [facility] [address] [id number] [place] [address] June, [facility] [address] [id number] [place] [address] June, [facility] [address] [id number] [place] [address] June, [facility] [place] [facility] [address] [id number] [place] [address] June, [facility] [place] [facility] [address] [id number] [place] [address] June, [facility] [place] [facility] [address] [id number] [place] [address] June, [facility] [place] [facility] [address] [id number] [place] [address] June, [facility] [place] [facility] [address] [id number] [place] [address] June, [facility] [place] [facility] [address] [id number] [place] [address] June, [facility] [place] [facility] [address] [id number] [place] [address] May, [facility] [place] [facility] [address] [id number] [place] [address] May, [facility] [place] [facility] [address] [id number] [place] [address] May, [facility] [place] [facility] [address] [id number] [place] [address] May, [facility] [place] [facility] [address] [id number] [place] [address] May, [facility] [place] [facility] [address] [id number] [place] [address] May, [facility] [place] [facility] [address] [id number] [place] [address] May, [facility] [place] [facility] [address] [id number] [place] [address] May, [facility] [place] [facility] [address] [id number] [place] [address] May, [facility] [place] [facility] [address] [id number] [place] [address] May, [facility] [place] [facility] [address] [id number] [place] [address] Apr, [facility] [place] [facility] [address] [id number] [place] [address] Apr, [facility] [place] [facility] [address] [id number] [place] [address] Apr, [facility] [place] [facility] [address] [id number] [place] [address] Apr, [facility] [place] [facility] [address] [id number] [place] [address] Apr, [facility] [place] [facility] [address] [id number] [place] [address] Apr, [facility] [place] [facility] [address] [id number] [place] [address] 13 Apr, 2013 [facility] [place] [facility] [address] [id number] [place] [address] 13 Apr, 2013 [facility] [place] [facility] [address] [id number] [place] [address] 07 Apr, 2013 [facility] [place] [facility] [address] [id number] [place] [address] Apr, [facility] [place] [facility] [address] [id number] [place] [address] Mar, [facility] [place] [facility] [address] [id number] [place] [address] Mar, [facility] [place] [facility] [address] [facility] [id number] [place] [address] Mar, [facility] [place] [facility] [address] [id number] [place] [address] Mar, [facility] [place] [facility] [address] [id number] [place] [address] Mar, [facility] [place] [facility] [address] [facility] [id number] [place] [address] Mar, [facility] [place] [facility] [address] [facility] [id number] [place] [address] Mar, [facility] [place] [facility] [address] [facility] [id number] [place] [address] Mar, [facility] [place] [facility] [address] [facility] [id number] [place] [address] Mar, [facility] [place] [facility] [address] [id number] [place] [address] Mar, [facility] [place] [facility] [address] [facility] [id number] [place] [address] 07 Mar, 2013 [facility] [place] [facility] [address] [facility] [id number] [place] [address] Mar, [facility] [address] [id number] [place] [address] Mar, [facility] [place] [facility] [address] [id number] [place] [address] Feb, [facility] [place] [facility] [address] [id number] [place] [address] Feb, [facility] [place] [facility] [address] [id number] [place] [address] Feb, [facility] [place] [facility] [address] [id number] [place] [address] Feb, [facility] [place] [facility] [address] [id number] [place] [address] Feb, [facility] [place] [facility] [address] [id number] [place] [address] Feb, [facility] [place] [facility] [address] [id number] [place] [address] Feb, [facility] [place] [facility] [address] [id number] [place] [address] Feb, [facility] [place] [facility] [address] [id number] [place] [address] Feb, [facility] [place] [facility] [address] [id number] [place] [address] Feb, [facility] [place] [facility] [address] [id number] [place] [address] Jan, [facility] [place] [facility] [address] [id number] [place] [address] Jan, [facility] [place] [facility] [address] [id number] [place] [address] Jan, [facility] [place] [facility] [address] [id number] [place] [address] Jan, [facility] [place] [facility] [address] [id number] [place] [address] Jan, [facility] [address] [id number] [place] [address] Jan, [facility] [place] [facility] [address] [id number] [place] [address] Jan, [facility] [address] [id number] [place] [address] Jan, [facility] [place] [facility] [address] [id number] [place] [address] Jan, [facility] [address] [id number] [place] [address] Jan, [facility] [place] [facility] [address] [id number] [place] [address] Jan, [facility] [place] [facility] [address] [id number] [place] [address] Jan, [facility] [address] [id number] [place] [address] Jan, [facility] [place] [facility] [address] [id number] [place] [address] Jan, [facility] [place] [facility] [address] [id number] [place] [address] Jan, [facility] [place] [facility] [address] [id number] [place] [address] Jan, [facility] [place] [facility] [address] [id number] [place] [address] Dec, [facility] [place] [facility] [address] [id number] [place] [address] Dec, [facility] [place] [facility] [address] [id number] [place] [address] Dec, [facility] [place] [facility] [address] [id number] [place] [address] Dec, [facility] [place] [facility] [address] [id number] [place] [address] 15 Dec, 2012 [facility] [place] [facility] [address] [id number] [place] [address] 15 Dec, 2012 [facility] [place] [facility] [address] [id number] [place] [address] Dec, [facility] [place] [facility] [address] [id number] [place] [address] Dec, [facility] [place] [facility] [address] [id number] [place] [address] Dec, [facility] [place] [facility] [address] [id number] [place] [address] Dec, [facility] [place] [facility] [address] [id number] [place] [address] Nov, [facility] [place] [facility] [address] [id number], [place] [address] 30 Nov, 2012 [facility] [place] [facility] [address] [id number] [place] [address] Nov, [facility] [place] [facility] [address] [id number], [place] [address] Nov, [facility] [place] [facility] [address] [id number][place] [address] 18 Nov, 2012 [facility] [place] [facility] [address] [id number], [place] [address] 18 Nov, 2012 [facility] [place] [facility] [address] [id number] [place] [address] 14 Nov, 2012 [facility] [place] [facility] [address] [id number][place] [address] 14 Nov, 2012 [facility] [place] [facility] [address] [id number], [place] [address] 09 Nov, 2012 [facility] [place] [facility] [address] [id number] [place] [address] 09 Nov, 2012 [facility] [address] [id number] [place] [address] 07 Nov, 2012 [facility] [place] [facility] [address] [id number] [place] [address] 05 Nov, 2012 [facility] [place] [facility] [address] [id number] [place] [address] 20 Oct, 2012 [facility] [place] [facility] [address] [id number] [place] [address] 20 Oct, 2012 [facility] [place] [facility] [address] [id number] [place] [address] 19 Oct, 2012 [facility] [place] [facility] [address] [id number] [place] [address] 18 Oct, 2012 [facility] [address] [id number] [place] [address] 13 Oct, 2012 [facility] [place] [facility] [address] [id number] [place] [address] 05 Oct, 2012 [facility] [place] [facility] [address] [id number] [place] [address] 04 Oct, 2012 [facility] [place] [facility] [address] [id number] [place] [address] 28 Sep, 2012 [facility] [place] [facility] [address] [id number] [place] [address] Sep, [facility] [place] [facility] [address] [id number] [place] [address] Sep, [facility] [place] [facility] [address] [id number] [place] [address] Sep, [facility] [place] [facility] [address] [id number] [place] [address] Sep, [facility] [place] [facility] [address] [id number] [place] [address] 08 Sep, 2012 [facility] [place] [facility] [address] [id number] [place] [address] Sep, [facility] [place] [facility] [address] [id number] [place] [address] Aug, [facility] [place] [facility] [address] [id number] [place] [address] Aug, [facility] [place] [facility] [address] [id number] [place] [address] Aug, [facility] [place] [facility] [address] [id number] [place] [address] Aug, [facility] [place] [facility] [address] [id number] [place] [address] Aug, [facility] [place] [facility] [address] [id number] [place] [address] Aug, [facility] [place] [facility] [address] [id number] [place] [address] Aug, [facility] [place] [facility] [address] [id number] [place] [address] Aug, [facility] [place] [facility] [address] [id number] [place] [address] Aug, [facility] [place] [facility] [address] [id number] [place] [address] Jul, [facility] [place] [facility] [address] [id number] [place] [address] Jul, [facility] [place] [facility] [address] [id number] [place] [address] Jul, [facility] [place] [facility] [address] [id number] [place] [address] Jul, [facility] [place] [facility] [address] [id number] [place] [address] Jul, [facility] [place] [facility] [address] [id number] [place] [address] Jul, [facility] [address] [id number] [place] [address] Jul, [facility] [address] [id number] [place] [address] June, [facility] [address] [id number] [place] [address] June, [facility] [address] [id number] [place] [address] June, [facility] [address] [id number] [place] [address] June, [facility] [address] [id number] [place] [address] June, [facility] [address] [id number] [place] [address] June, [facility] [address] [id number] [place] [address] June, [facility] [address] [id number] [place] [address] June, [facility] [address] [id number] [place] [address] May, [facility] [address] [id number] [place] [address] May, [facility] [place] [facility] [address] [id number] [place] [address] 16 May, 2012 [facility] [place] [facility] [address] [id number] [place] [address] 15 May, 2012 [facility] [place] [facility] [address] [id number] [place] [address] 08 May, 2012 [facility] [place] [facility] [address] [id number] [place] [address] May, [facility] [place] [facility] [address] [id number] [place] [address] 04 May, 2012 [facility] [address] [id number] [place] [address] May, [facility] [address] [id number] [place] [address] May, [facility] [address] [id number] [place] [address] May, [facility] [address] [id number] [place] [address] Apr, [facility] [address] [id number] [place] [address] 19 Apr, 2012 [facility] [address] [id number] [place] [address] 18 Apr, 2012 [facility] [address] [id number] [place] [address] 15 Apr, 2012 [facility] [address] [id number] [place] [address] 13 Apr, 2012 [facility] [address] [id number] [place] [address] 05 Apr, 2012 [facility] [address] [facility] [id number] [place] [address] 04 Apr, 2012 [facility] [address] [id number] [place] [address] 28 Mar, 2012 [facility] [address] [id number] [place] [address] Mar, [facility] [address] [id number] [place] [address] Mar, [facility] [address] [id number] [place] [address] Mar, [facility] [address] [id number] [place] [address] Mar, [facility] [place] [facility] [address] [id number] [place] [address] 07 Mar, 2012 [facility] [place] [facility] [address] [id number] [place] [address] 06 Mar, 2012 [facility] [place] [facility] [address] [id number] [place] [address] 05 Mar, 2012 [facility] [place] [facility] [address] [id number] [place] [address] Mar, [facility] [place] [facility] [address] [id number] [place] [address] Feb, [facility] [place] [facility] [address] [id number] [place] [address] Feb, [facility] [place] [facility] [address] [id number] [place] [address] Feb, [facility] [place] [facility] [address] [id number] [place] [address] Feb, [facility] [place] [facility] [address] [id number] [place] [address] Feb, [facility] [place] [facility] [address] [id number] [place] [address] Feb, [facility] [place] [facility] [address] [id number] [place] [address] Feb, [facility] [place] [facility] [address] [id number] [place] [address] Jan, [facility] [place] [facility] [address] [id number] [place] [address] Jan, [facility] [place] [facility] [address] [id number] [place] [address] Jan, [facility] [place] [facility] [address] [id number] [place] [address] Jan, [facility] [place] [facility] [address] [id number] [place] [address] 27 Jan, 2012 [facility] [address] [id number] [place] [address] 27 Jan, 2012 [facility] [place] [facility] [address] [id number] [place] [address] 14 Jan, 2012 [facility] [address] [id number] [place] [address] Jan, [facility] [place] [facility] [address] [id number] [place] [address] 10 Jan, 2012 [facility] [address] [id number] [place] [address] Jan, [facility] [address] [id number] [place] [address] 04 Jan, 2012 [facility] [address] [id number] [place] [address] Jan, [facility] [address] [id number] [place] [address] Jan, [facility] [place] [facility] [address] [id number] [place] [address] Dec, [facility] [address] [id number] [place] [address] 29 Dec, 2011 [facility] [place] [facility] [address] [id number] [place] [address] Dec, [facility] [place] [facility] [address] [id number] [place] [address] Dec, [facility] [place] [facility] [address] [id number] [place] [address] Dec, [facility] [place] [facility] [address] [id number] [place] [address] Dec, [facility] [place] [facility] [address] [id number] [place] [address] Dec, [facility] [place] [facility] [address] [id number] [place] [address] Dec, [facility] [place] [facility] [address] [id number] [place] [address] Dec, [facility] [place] [facility] [address] [id number] [place] [address] Dec, [facility] [place] [facility] [address] [id number] [place] [address] Dec, [facility] [place] [facility] [address] [id number] [place] [address] Dec, [facility] [place] [facility] [address] [id number] [place] [address] Dec, [facility] [place] [facility] [address] [id number] [place] [address] Dec, [facility] [place] [facility] [address] [id number], [place] [address] Nov, [facility] [place] [facility] [address] [id number] [place] [address] Nov, [facility] [place] [facility] [address] [facility] [id number], [place] [address] Nov, [facility] [place] [facility] [address] [id number], [place] [address] Nov, [facility] [place] [facility] [address] [id number], [place] [address] Nov, [facility] [place] [facility] [address] [id number], [place] [address] Nov, [facility] [place] [facility] [address] [id number], [place] [address] Nov, [facility] [place] [facility] [address] [facility] [id number], [place] [address] Nov, [facility] [place] [facility] [address] [id number], [place] [address] Nov, [facility] [place] [facility] [address] [id number] [place] [address] Nov, [facility] [place] [facility] [address] [id number] [place] [address] Nov, [facility] [place] [facility] [address] [facility] [id number] [place] [address] Nov, [facility] [place] [facility] [address] [id number] [place] [address] Nov, [facility] [place] [facility] [address] [id number] [place] [address] 25 Oct, 2011 [facility] [place] [facility] [address] [id number] [place] [address] 25 Oct, 2011 [facility] [place] [facility] [address] [facility] [id number] [place] [address] 24 Oct, 2011 [facility] [place] [facility] [address] [id number] [place] [address] 17 Oct, 2011 [facility] [place] [facility] [address] [id number] [place] [address] 14 Oct, 2011 [facility] [place] [facility] [address] [facility] [id number] [place] [address] 11 Oct, 2011 [facility] [place] [facility] [address] [id number] [place] [address] 06 Oct, 2011 [facility] [place] [facility] [address] [id number], [place] [address] Sep, [facility] [place] [facility] [address] [id number] [place] [address] Sep, [facility] [place] [facility] [address] [facility] [id number], [place] [address] Sep, [facility] [place] [facility] [address] [facility] [id number] [place] [address] Sep, [facility] [place] [facility] [address] [facility] [id number] [place] [address] Aug, IMMUNIZATIONS No Known Immunizations SOCIAL HISTORY Never Assessed REASON FOR VISIT EMR-[facility] [place] PLAN OF CARE VITAL SIGNS MEDICATIONS Unknown [...]
--- OUTSIDE RECORDS SUMMARY | 2018-07-22 18:52 | XMS REPORT ---
Author Author Migration, Doctor Organization [facility] Address Unknown Phone Unavailable Care Team Providers Care Opener Tender Name Role Phone Migration, Doctor Unavailable Unavailable PROBLEMS Type Condition ICD9-CM Code KDU42-JC Code Onset Dates Condition Status SNOMED Code Problem Loss of weight 783.21 Active 237339893 Problem Unspecified arthropathy, site unspecified 716.90 Active 434775520 Problem Lumbago 724.2 Active 248180370 Problem Depressive disorder, not elsewhere classified 311 Active 77941673 Problem Other abnormal glucose 790.29 Active 977162263 Problem Anxiety state, unspecified 300.00 Active 570378448 Problem Chronic airway obstruction, not elsewhere classified 496 Active 47434503 Problem 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 [address] [address] Mar, [facility] [address] [address] Feb, Arthropathy, unspecified M12.9 [facility] [id number] [place] [address] Feb, [facility] [id number] [place] [address] Jan, [facility] [address] [address] Jan, [facility] [address] [address] Jan, [facility] [address] [address] Oct, 2014 [facility] [place] [facility] [address] [id number] [place] [address] 10 Oct, 2014 Lumbago 724.2 [facility] [place] [facility] [address] [id number] [place] [address] Oct, 2014 [facility] [place] [facility] [address] [id number] [place] [address] 08 Oct, 2014 [facility] [place] [facility] [address] [id number] [place] [address] 08 Oct, 2014 [facility] [place] [facility] [address] [id number] [place] [address] Oct, 2014 [facility] [place] [facility] [address] [id number] [place] [address] Oct, 2014 [facility] [place] [facility] [address] [id number] [place] [address] Oct, 2014 [facility] [place] [facility] [address] [id number] [place] [address] Sep, 2014 [facility] [place] [facility] [address] [id number] [place] [address] Sep, 2014 [facility] [place] [facility] [address] [id number] [place] [address] Aug, 2014 [facility] [place] [facility] [address] [id number] [place] [address] Aug, 2014 [facility] [place] [facility] [address] [id number] [place] [address] Aug, 2014 [facility] [place] [facility] [address] [id number] [place] [address] Aug, 2014 [facility] [place] [facility] [address] [id number] [place] [address] Aug, 2014 [facility] [place] [facility] [address] [id number] [place] [address] Aug2014 [facility] [place] [facility] [address] [facility] [id number] [address] Jul, Unspecified arthropathy, site unspecified 716.90 [facility] [address] [address] Jul, [facility] [address] [address] Jul, [facility] [address] [address] June, Acute bronchitis 466.0 ; Unspecified arthropathy, site unspecified 716.90 and Chronic pain disorder 338.4 [facility] [address] [address] June, [facility] [address] [address] June, [facility] [address] [address] June, [facility] [address] [address] June, [facility] [address] [address] May, [facility] [address] [id number] [address] May, [facility] [address] [id number] [address] May, [facility] [address] [id number] [address] Apr, [facility] [address] [address] Apr, [facility] [address] [id number] [address] Apr, [facility] [address] [address] 12 Apr, 2014 [facility] [place] [facility] [address] [id number] [place] [address] Apr, 2014 [facility] [place] [facility] [address] [id number] [place] [address] 10 Apr, 2014 [facility] [place] [facility] [address] [facility] [id number] [place] [address] Apr, 2014 [facility] [place] [facility] [address] [id number] [place] [address] Apr, [facility] [place] [facility] [address] [id number] [place] [address] 24 Mar, 2014 [facility] [place] [facility] [address] [facility] [id number] [place] [address] 24 Mar, 2014 [facility] [place] [facility] [address] [facility] [id number] [place] [address] 17 Mar, 2014 [facility] [place] [facility] [address] [facility] [id number] [place] [address] 17 Mar, 2014 [facility] [place] [facility] [address] [facility] [id number] [place] [address] 17 Mar, 2014 [facility] [place] [facility] [address] [facility] [id number] [place] [address] 17 Mar, 2014 [facility] [place] [facility] [address] [facility] [id number] [place] [address] 13 Mar, 2014 [facility] [place] [facility] [address] [facility] [id number] [place] [address] 13 Mar, 2014 [facility] [place] [facility] [address] [facility] [id number] [place] [address] 13 Mar, 2014 [facility] [place] [facility] [address] [facility] [id number] [place] [address] 13 Mar, 2014 [facility] [place] [facility] [address] [facility] [id number] [place] [address] Mar, [facility] [place] [facility] [address] [id number] [place] [address] Mar, [facility] [place] [facility] [address] [id number] [place] [address] Mar, [facility] [place] [facility] [address] [id number] [place] [address] Mar, [facility] [place] [facility] [address] [id number] [place] [address] Mar, [facility] [place] [facility] [address] [id number] [place] [address] Feb, [facility] [place] [facility] [address] [id number] [place] [address] Feb, [facility] [place] [facility] [address] [id number] [place] [address] Feb, [facility] [place] [facility] [address] [id number] [place] [address] Feb, [facility] [place] [facility] [address] [id number] [place] [address] Feb, [facility] [place] [facility] [address] [id number] [place] [address] Feb, [facility] [place] [facility] [address] [id number] [place] [address] Feb, [facility] [place] [facility] [address] [id number], [place] [address] Feb, [facility] [place] [facility] [address] [id number] [place] [address] Feb, [facility] [place] [facility] [address] [id number] [place] [address] Feb, [facility] [place] [facility] [address] [id number] [place] [address] Feb, [facility] [place] [facility] [address] [id number] [place] [address] Jan, [facility] [address] [id number] [place] [address] Jan, [facility] [address] [id number] [place] [address] 15 Jan, 2014 [facility] [address] [id number] [place] [address] 15 Jan, 2014 [facility] [address] [id number] [place] [address] 15 Jan, 2014 [facility] [address] [id number] [place] [address] Jan, [facility] [address] [id number] [place] [address] Jan, [facility] [address] [id number] [place] [address] Jan, [facility] [address] [id number] [place] [address] Jan, [facility] [address] [id number] [place] [address] Jan, [facility] [address] [id number] [place] [address] Jan, [facility] [place] [facility] [address] [id number] [place] [address] Jan, [facility] [place] [facility] [address] [id number] [place] [address] Jan, [facility] [place] [facility] [address] [id number] [place] [address] Jan, [facility] [place] [facility] [address] [id number] [place] [address] Jan, [facility] [place] [facility] [address] [id number] [place] [address] Dec, [facility] [place] [facility] [address] [id number] [place] [address] Dec, [facility] [place] [facility] [address] [id number] [place] [address] Dec, [facility] [place] [facility] [address] [id number] [place] [address] Dec, [facility] [place] [facility] [address] [id number] [place] [address] Dec, [facility] [place] [facility] [address] [id number] [place] [address] Dec, [facility] [place] [facility] [address] [id number] [place] [address] Dec, [facility] [place] [facility] [address] [id number] [place] [address] Dec, [facility] [place] [facility] [address] [id number] [place] [address] Dec, [facility] [place] [facility] [address] [id number] [place] [address] Dec, [facility] [place] [facility] [address] [id number] [place] [address] Dec, [facility] [place] [facility] [address] [id number] [place] [address] Dec, [facility] [place] [facility] [address] [id number], [place] [address] Dec, [facility] [place] [facility] [address] [id number] [place] [address] Dec, [facility] [place] [facility] [address] [id number] [place] [address] Dec, [facility] [place] [facility] [address] [id number], [place] [address] Dec, [facility] [place] [facility] [address] [id number], [place] [address] Dec, [facility] [place] [facility] [address] [id number] [place] [address] Dec, [facility] [place] [facility] [address] [id number] [place] [address] Dec, [facility] [place] [facility] [address] [id number] [place] [address] Dec, [facility] [place] [facility] [address] [id number] [place] [address] Nov, [facility] [place] [facility] [address] [id number] [place] [address] Nov, [facility] [place] [facility] [address] [id number] [place] [address] Nov, [facility] [place] [facility] [address] [id number] [place] [address] Nov, [facility] [place] [facility] [address] [id number] [place] [address] 15 Nov, 2013 [facility] [place] [facility] [address] [id number] [place] [address] Nov, [facility] [place] [facility] [address] [id number] [place] [address] Nov, [facility] [place] [facility] [address] [id number], [place] [address] Nov, [facility] [place] [facility] [address] [id number], [place] [address] Nov, [facility] [place] [facility] [address] [id number] [place] [address] Nov, [facility] [place] [facility] [address] [id number], [place] [address] Nov, [facility] [place] [facility] [address] [id number] [place] [address] Nov, [facility] [place] [facility] [address] [id number] [place] [address] 22 Oct, 2013 [facility] [place] [facility] [address] [id number] [place] [address] 22 Oct, 2013 [facility] [place] [facility] [address] [id number] [place] [address] 19 Oct, 2013 [facility] [place] [facility] [address] [id number] [place] [address] 19 Oct, 2013 [facility] [place] [facility] [address] [id number] [place] [address] 17 Oct, 2013 [facility] [place] [facility] [address] [id number] [place] [address] 17 Oct, 2013 [facility] [place] [facility] [address] [id number] [place] [address] 16 Oct, 2013 [facility] [place] [facility] [address] [id number] [place] [address] 16 Oct, 2013 [facility] [place] [facility] [address] [id number] [place] [address] Oct, 2013 [facility] [place] [facility] [address] [id number] [place] [address] Oct, 2013 [facility] [place] [facility] [address] [id number] [place] [address] Sep, [facility] [place] [facility] [address] [id number] [place] [address] Sep, [facility] [place] [facility] [address] [id number] [place] [address] Sep, [facility] [place] [facility] [address] [id number] [place] [address] Sep, [facility] [place] [facility] [address] [id number] [place] [address] Sep, [facility] [place] [facility] [address] [id number] [place] [address] Sep, [facility] [place] [facility] [address] [id number] [place] [address] Sep, [facility] [place] [facility] [address] [id number] [place] [address] Sep, [facility] [place] [facility] [address] [id number] [place] [address] Sep, [facility] [place] [facility] [address] [id number] [place] [address] Sep, [facility] [place] [facility] [address] [id number] [place] [address] Sep, [facility] [place] [facility] [address] [id number] [place] [address] Sep, [facility] [place] [facility] [address] [id number] [place] [address] Sep, [facility] [place] [facility] [address] [id number] [place] [address] Sep, [facility] [place] [facility] [address] [id number] [place] [address] Aug, [facility] [place] [facility] [address] [id number] [place] [address] Aug, [facility] [place] [facility] [address] [id number] [place] [address] Aug, [facility] [place] [facility] [address] [id number] [place] [address] Aug, [facility] [place] [facility] [address] [id number] [place] [address] Aug, [facility] [place] [facility] [address] [id number] [place] [address] Aug, [facility] [place] [facility] [address] [id number] [place] [address] Aug, [facility] [place] [facility] [address] [id number] [place] [address] Aug, [facility] [place] [facility] [address] [id number] [place] [address] Aug, [facility] [place] [facility] [address] [id number] [place] [address] Aug, [facility] [place] [facility] [address] [id number] [place] [address] Aug, [facility] [place] [facility] [address] [id number] [place] [address] Jul, [facility] [place] [facility] [address] [id number] [place] [address] Jul, [facility] [place] [facility] [address] [id number] [place] [address] Jul, [facility] [place] [facility] [address] [id number] [place] [address] Jul, [facility] [place] [facility] [address] [id number] [place] [address] Jul, [facility] [place] [facility] [address] [id number] [place] [address] Jul, [facility] [place] [facility] [address] [id number] [place] [address] Jul, [facility] [place] [facility] [address] [id number] [place] [address] Jul, [facility] [place] [facility] [address] [id number] [place] [address] Jul, [facility] [place] [facility] [address] [id number] [place] [address] Jul, [facility] [place] [facility] [address] [id number] [place] [address] June, [facility] [place] [facility] [address] [id number] [place] [address] June, [facility] [place] [facility] [address] [id number] [place] [address] June, [facility] [address] [id number] [place] [address] June, [facility] [place] [facility] [address] [id number] [place] [address] June, [facility] [place] [facility] [address] [id number] [place] [address] June, [facility] [address] [id number] [place] [address] June, [facility] [place] [facility] [address] [id number] [place] [address] June, [facility] [address] [id number] [place] [address] June, [facility] [address] [id number] [place] [address] June, [facility] [address] [id number] [place] [address] June, [facility] [place] [facility] [address] [id number] [place] [address] June, [facility] [place] [facility] [address] [id number] [place] [address] June, [facility] [place] [facility] [address] [id number] [place] [address] June, [facility] [place] [facility] [address] [id number] [place] [address] June, [facility] [place] [facility] [address] [id number] [place] [address] June, [facility] [place] [facility] [address] [id number] [place] [address] June, [facility] [place] [facility] [address] [id number] [place] [address] May, [facility] [place] [facility] [address] [id number] [place] [address] May, [facility] [place] [facility] [address] [id number] [place] [address] May, [facility] [place] [facility] [address] [id number] [place] [address] May, [facility] [place] [facility] [address] [id number] [place] [address] May, [facility] [place] [facility] [address] [id number] [place] [address] May, [facility] [place] [facility] [address] [id number] [place] [address] May, [facility] [place] [facility] [address] [id number] [place] [address] May, [facility] [place] [facility] [address] [id number] [place] [address] May, [facility] [place] [facility] [address] [id number] [place] [address] May, [facility] [place] [facility] [address] [id number] [place] [address] Apr, [facility] [place] [facility] [address] [id number] [place] [address] Apr, [facility] [place] [facility] [address] [id number] [place] [address] Apr, [facility] [place] [facility] [address] [id number] [place] [address] Apr, [facility] [place] [facility] [address] [id number] [place] [address] Apr, [facility] [place] [facility] [address] [id number] [place] [address] Apr, [facility] [place] [facility] [address] [id number] [place] [address] 13 Apr, 2013 [facility] [place] [facility] [address] [id number] [place] [address] 13 Apr, 2013 [facility] [place] [facility] [address] [id number] [place] [address] 07 Apr, 2013 [facility] [place] [facility] [address] [id number] [place] [address] Apr, [facility] [place] [facility] [address] [id number] [place] [address] Mar, [facility] [place] [facility] [address] [id number] [place] [address] Mar, [facility] [place] [facility] [address] [facility] [id number] [place] [address] Mar, [facility] [place] [facility] [address] [id number] [place] [address] Mar, [facility] [place] [facility] [address] [id number] [place] [address] Mar, [facility] [place] [facility] [address] [facility] [id number] [place] [address] Mar, [facility] [place] [facility] [address] [facility] [id number] [place] [address] Mar, [facility] [place] [facility] [address] [facility] [id number] [place] [address] Mar, [facility] [place] [facility] [address] [facility] [id number] [place] [address] Mar, [facility] [place] [facility] [address] [id number] [place] [address] Mar, [facility] [place] [facility] [address] [facility] [id number] [place] [address] 07 Mar, 2013 [facility] [place] [facility] [address] [facility] [id number] [place] [address] Mar, [facility] [address] [id number] [place] [address] Mar, [facility] [place] [facility] [address] [id number] [place] [address] Feb, [facility] [place] [facility] [address] [id number] [place] [address] Feb, [facility] [place] [facility] [address] [id number] [place] [address] Feb, [facility] [place] [facility] [address] [id number] [place] [address] Feb, [facility] [place] [facility] [address] [id number] [place] [address] Feb, [facility] [place] [facility] [address] [id number] [place] [address] Feb, [facility] [place] [facility] [address] [id number] [place] [address] Feb, [facility] [place] [facility] [address] [id number] [place] [address] Feb, [facility] [place] [facility] [address] [id number] [place] [address] Feb, [facility] [place] [facility] [address] [id number] [place] [address] Feb, [facility] [place] [facility] [address] [id number] [place] [address] Jan, [facility] [place] [facility] [address] [id number] [place] [address] Jan, [facility] [place] [facility] [address] [id number] [place] [address] Jan, [facility] [place] [facility] [address] [id number] [place] [address] Jan, [facility] [place] [facility] [address] [id number] [place] [address] Jan, [facility] [address] [id number] [place] [address] Jan, [facility] [place] [facility] [address] [id number] [place] [address] Jan, [facility] [address] [id number] [place] [address] Jan, [facility] [place] [facility] [address] [id number] [place] [address] Jan, [facility] [address] [id number] [place] [address] Jan, [facility] [place] [facility] [address] [id number] [place] [address] Jan, [facility] [place] [facility] [address] [id number] [place] [address] Jan, [facility] [address] [id number] [place] [address] Jan, [facility] [place] [facility] [address] [id number] [place] [address] Jan, [facility] [place] [facility] [address] [id number] [place] [address] Jan, [facility] [place] [facility] [address] [id number] [place] [address] Jan, [facility] [place] [facility] [address] [id number] [place] [address] Dec, [facility] [place] [facility] [address] [id number] [place] [address] Dec, [facility] [place] [facility] [address] [id number] [place] [address] Dec, [facility] [place] [facility] [address] [id number] [place] [address] Dec, [facility] [place] [facility] [address] [id number] [place] [address] 15 Dec, 2012 [facility] [place] [facility] [address] [id number] [place] [address] 15 Dec, 2012 [facility] [place] [facility] [address] [id number] [place] [address] Dec, [facility] [place] [facility] [address] [id number] [place] [address] Dec, [facility] [place] [facility] [address] [id number] [place] [address] Dec, [facility] [place] [facility] [address] [id number] [place] [address] Dec, [facility] [place] [facility] [address] [id number] [place] [address] Nov, [facility] [place] [facility] [address] [id number] [address] 30 Nov, 2012 [facility] [place] [facility] [address] [id number] [place] [address] Nov, [facility] [place] [facility] [address] [id number], [place] [address] Nov, [facility] [place] [facility] [address] [id number], [place] [address] 18 Nov, 2012 [facility] [place] [facility] [address] [id number][place] [address] 18 Nov, 2012 [facility] [place] [facility] [address] [id number] [place] [address] 14 Nov, 2012 [facility] [place] [facility] [address] [id number], [place] [address] 14 Nov, 2012 [facility] [place] [facility] [address] [id number], [place] [address] 09 Nov, 2012 [facility] [place] [facility] [address] [id number] [place] [address] 09 Nov, 2012 [facility] [address] [id number] [place] [address] 07 Nov, 2012 [facility] [place] [facility] [address] [id number] [place] [address] 05 Nov, 2012 [facility] [place] [facility] [address] [id number] [place] [address] 20 Oct, 2012 [facility] [place] [facility] [address] [id number] [place] [address] 20 Oct, 2012 [facility] [place] [facility] [address] [id number] [place] [address] 19 Oct, 2012 [facility] [place] [facility] [address] [id number] [place] [address] 18 Oct, 2012 [facility] [address] [id number] [place] [address] 13 Oct, 2012 [facility] [place] [facility] [address] [id number] [place] [address] 05 Oct, 2012 [facility] [place] [facility] [address] [id number] [place] [address] 04 Oct, 2012 [facility] [place] [facility] [address] [id number] [place] [address] 28 Sep, 2012 [facility] [place] [facility] [address] [id number] [place] [address] Sep, [facility] [place] [facility] [address] [id number] [place] [address] Sep, [facility] [place] [facility] [address] [id number] [place] [address] Sep, [facility] [place] [facility] [address] [id number] [place] [address] Sep, [facility] [place] [facility] [address] [id number] [place] [address] 08 Sep, 2012 [facility] [place] [facility] [address] [id number] [place] [address] Sep, [facility] [place] [facility] [address] [id number] [place] [address] Aug, [facility] [place] [facility] [address] [id number] [place] [address] Aug, [facility] [place] [facility] [address] [id number] [place] [address] Aug, [facility] [place] [facility] [address] [id number] [place] [address] Aug, [facility] [place] [facility] [address] [id number] [place] [address] Aug, [facility] [place] [facility] [address] [id number] [place] [address] Aug, [facility] [place] [facility] [address] [id number] [place] [address] Aug, [facility] [place] [facility] [address] [id number] [place] [address] Aug, [facility] [place] [facility] [address] [id number] [place] [address] Aug, [facility] [place] [facility] [address] [id number] [place] [address] Jul, [facility] [place] [facility] [address] [id number] [place] [address] Jul, [facility] [place] [facility] [address] [id number] [place] [address] Jul, [facility] [place] [facility] [address] [id number] [place] [address] Jul, [facility] [place] [facility] [address] [id number] [place] [address] Jul, [facility] [place] [facility] [address] [id number] [place] [address] Jul, [facility] [address] [id number] [place] [address] Jul, [facility] [address] [id number] [place] [address] June, [facility] [address] [id number] [place] [address] June, [facility] [address] [id number] [place] [address] June, [facility] [address] [id number] [place] [address] June, [facility] [address] [id number] [place] [address] June, [facility] [address] [id number] [place] [address] June, [facility] [address] [id number] [place] [address] June, [facility] [address] [id number] [place] [address] June, [facility] [address] [id number] [place] [address] May, [facility] [address] [id number] [place] [address] May, [facility] [place] [facility] [address] [id number] [place] [address] 16 May, 2012 [facility] [place] [facility] [address] [id number] [place] [address] 15 May, 2012 [facility] [place] [facility] [address] [id number] [place] [address] 08 May, 2012 [facility] [place] [facility] [address] [id number] [place] [address] May, [facility] [place] [facility] [address] [id number] [place] [address] 04 May, 2012 [facility] [address] [id number] [place] [address] May, [facility] [address] [id number] [place] [address] May, [facility] [address] [id number] [place] [address] May, [facility] [address] [id number] [place] [address] Apr, [facility] [address] [id number] [place] [address] 19 Apr, 2012 [facility] [address] [id number] [place] [address] 18 Apr, 2012 [facility] [address] [id number] [place] [address] 15 Apr, 2012 [facility] [address] [id number] [place] [address] 13 Apr, 2012 [facility] [address] [id number] [place] [address] 05 Apr, 2012 [facility] [address] [facility] [id number] [place] [address] 04 Apr, 2012 [facility] [address] [id number] [place] [address] 28 Mar, 2012 [facility] [address] [id number] [place] [address] Mar, [facility] [address] [id number] [place] [address] Mar, [facility] [address] [id number] [place] [address] Mar, [facility] [address] [id number] [place] [address] Mar, [facility] [place] [facility] [address] [id number] [place] [address] 07 Mar, 2012 [facility] [place] [facility] [address] [id number] [place] [address] 06 Mar, 2012 [facility] [place] [facility] [address] [id number] [place] [address] 05 Mar, 2012 [facility] [place] [facility] [address] [id number] [place] [address] Mar, [facility] [place] [facility] [address] [id number] [place] [address] Feb, [facility] [place] [facility] [address] [id number] [place] [address] Feb, [facility] [place] [facility] [address] [id number] [place] [address] Feb, [facility] [place] [facility] [address] [id number] [place] [address] Feb, [facility] [place] [facility] [address] [id number] [place] [address] Feb, [facility] [place] [facility] [address] [id number] [place] [address] Feb, [facility] [place] [facility] [address] [id number] [place] [address] Feb, [facility] [place] [facility] [address] [id number] [place] [address] Jan, [facility] [place] [facility] [address] [id number] [place] [address] Jan, [facility] [place] [facility] [address] [id number] [place] [address] Jan, [facility] [place] [facility] [address] [id number] [place] [address] Jan, [facility] [place] [facility] [address] [id number] [place] [address] 27 Jan, 2012 [facility] [address] [id number] [place] [address] 27 Jan, 2012 [facility] [place] [facility] [address] [id number] [place] [address] 14 Jan, 2012 [facility] [address] [id number] [place] [address] Jan, [facility] [place] [facility] [address] [id number] [place] [address] 10 Jan, 2012 [facility] [address] [id number] [place] [address] Jan, [facility] [address] [id number] [place] [address] 04 Jan, 2012 [facility] [address] [id number] [place] [address] Jan, [facility] [address] [id number] [place] [address] Jan, [facility] [place] [facility] [address] [id number] [place] [address] Dec, [facility] [address] [id number] [place] [address] 29 Dec, 2011 [facility] [place] [facility] [address] [id number] [place] [address] Dec, [facility] [place] [facility] [address] [id number] [place] [address] Dec, [facility] [place] [facility] [address] [id number] [place] [address] Dec, [facility] [place] [facility] [address] [id number] [place] [address] Dec, [facility] [place] [facility] [address] [id number] [place] [address] Dec, [facility] [place] [facility] [address] [id number] [place] [address] Dec, [facility] [place] [facility] [address] [id number] [place] [address] Dec, [facility] [place] [facility] [address] [id number] [place] [address] Dec, [facility] [place] [facility] [address] [id number] [place] [address] Dec, [facility] [place] [facility] [address] [id number] [place] [address] Dec, [facility] [place] [facility] [address] [id number] [place] [address] Dec, [facility] [place] [facility] [address] [id number] [place] [address] Dec, [facility] [place] [facility] [address] [id number], [place] [address] Nov, [facility] [place] [facility] [address] [id number] [place] [address] Nov, [facility] [place] [facility] [address] [facility] [id number], [place] [address] Nov, [facility] [place] [facility] [address] [id number], [place] [address] Nov, [facility] [place] [facility] [address] [id number], [place] [address] Nov, [facility] [place] [facility] [address] [id number], [place] [address] Nov, [facility] [place] [facility] [address] [id number], [place] [address] Nov, [facility] [place] [facility] [address] [facility] [id number], [place] [address] Nov, [facility] [place] [facility] [address] [id number], [place] [address] Nov, [facility] [place] [facility] [address] [id number] [place] [address] Nov, [facility] [place] [facility] [address] [id number] [place] [address] Nov, [facility] [place] [facility] [address] [facility] [id number] [place] [address] Nov, [facility] [place] [facility] [address] [id number] [place] [address] Nov, [facility] [place] [facility] [address] [id number] [place] [address] 25 Oct, 2011 [facility] [place] [facility] [address] [id number] [place] [address] 25 Oct, 2011 [facility] [place] [facility] [address] [facility] [id number] [place] [address] 24 Oct, 2011 [facility] [place] [facility] [address] [id number] [place] [address] 17 Oct, 2011 [facility] [place] [facility] [address] [id number] [place] [address] 14 Oct, 2011 [facility] [place] [facility] [address] [facility] [id number] [place] [address] 11 Oct, 2011 [facility] [place] [facility] [address] [id number] [place] [address] 06 Oct, 2011 [facility] [place] [facility] [address] [id number], [place] [address] Sep, [facility] [place] [facility] [address] [id number] [place] [address] Sep, [facility] [place] [facility] [address] [facility] [id number], [place] [address] Sep, [facility] [place] [facility] [address] [facility] [id number] [place] [address] Sep, [facility] [place] [facility] [address] [facility] [id number] [place] [address] Aug, IMMUNIZATIONS No Known Immunizations SOCIAL HISTORY Never Assessed REASON FOR VISIT EMR-[facility] PLAN OF CARE VITAL SIGNS [...]
--- OUTSIDE RECORDS SUMMARY | 2018-07-22 18:53 | XMS REPORT ---
Author Author Migration, Doctor Organization [facility] Address Unknown Phone Unavailable Care Team Providers Care Director Medical Safety Name Role Phone Migration, Doctor Unavailable Unavailable PROBLEMS Type Condition ICD9-CM Code UEE66-MC Code Onset Dates Condition Status SNOMED Code Problem Loss of weight 783.21 Active 253010816 Problem Unspecified arthropathy, site unspecified 716.90 Active 751330742 Problem Lumbago 724.2 Active 653212767 Problem Depressive disorder, not elsewhere classified 311 Active 61122607 Problem Other abnormal glucose 790.29 Active 226533634 Problem Anxiety state, unspecified 300.00 Active 236989668 Problem Chronic airway obstruction, not elsewhere classified 496 Active 66243519 Problem 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 009610664 Problem Unspecified essential hypertension 401.9 Active 53207345 Problem Migraine, unspecified without mention of intractable migraine without mention of status migrainosus 346.90 Active [id number] ALLERGIES No Information ENCOUNTERS Encounter Location Date Diagnosis [facility] [address] [address] Mar, [facility] [address] [address] Feb, Arthropathy, unspecified M12.9 [facility] [id number] [place] [address] Feb, [facility] [id number] [place] [address] Jan, [facility] [address] [address] Jan, [facility] [address] [address] Jan, [facility] [address] [address] Oct, 2014 [facility] [place] [facility] [address] [id number] [place] [address] 10 Oct, 2014 Lumbago 724.2 [facility] [place] [facility] [address] [id number] [place] [address] Oct, 2014 [facility] [place] [facility] [address] [id number] [place] [address] 08 Oct, 2014 [facility] [place] [facility] [address] [id number] [place] [address] 08 Oct, 2014 [facility] [place] [facility] [address] [id number] [place] [address] Oct, 2014 [facility] [place] [facility] [address] [id number] [place] [address] Oct, 2014 [facility] [place] [facility] [address] [id number] [place] [address] Oct, 2014 [facility] [place] [facility] [address] [id number] [place] [address] Sep, 2014 [facility] [place] [facility] [address] [id number] [place] [address] Sep, 2014 [facility] [place] [facility] [address] [id number] [place] [address] Aug, 2014 [facility] [place] [facility] [address] [id number] [place] [address] Aug, 2014 [facility] [place] [facility] [address] [id number] [place] [address] Aug, 2014 [facility] [place] [facility] [address] [id number] [place] [address] Aug, 2014 [facility] [place] [facility] [address] [id number] [place] [address] Aug, 2014 [facility] [place] [facility] [address] [id number] [place] [address] Aug2014 [facility] [place] [facility] [address] [facility] [id number], [place] [address] Jul, Unspecified arthropathy, site unspecified 716.90 [facility] [id number] [address] Jul, [facility] [address] [address] Jul, [facility] [id number] [address] June, Acute bronchitis 466.0 ; Unspecified arthropathy, site unspecified 716.90 and Chronic pain disorder 338.4 [facility] [id number] [address] June, [facility] [id number] [address] June, [facility] [id number], [place] [address] June, [facility] [id number] [address] June, [facility] [id number], [place] [address] May, [facility] [address] [id number] [address] May, [facility] [address] [id number] [address] May, [facility] [address] [id number] [address] Apr, [facility] [id number], [place] [address] Apr, [facility] [address] [id number], [place] [address] Apr, [facility] [address], [place] [address] 12 Apr, 2014 [facility] [place] [facility] [address] [id number] [place] [address] Apr, 2014 [facility] [place] [facility] [address] [id number] [place] [address] 10 Apr, 2014 [facility] [place] [facility] [address] [facility] [id number] [place] [address] Apr, 2014 [facility] [place] [facility] [address] [id number] [place] [address] Apr, [facility] [place] [facility] [address] [id number] [place] [address] 24 Mar, 2014 [facility] [place] [facility] [address] [facility] [id number] [place] [address] 24 Mar, 2014 [facility] [place] [facility] [address] [facility] [id number] [place] [address] 17 Mar, 2014 [facility] [place] [facility] [address] [facility] [id number] [place] [address] 17 Mar, 2014 [facility] [place] [facility] [address] [facility] [id number] [place] [address] 17 Mar, 2014 [facility] [place] [facility] [address] [facility] [id number] [place] [address] 17 Mar, 2014 [facility] [place] [facility] [address] [facility] [id number] [place] [address] 13 Mar, 2014 [facility] [place] [facility] [address] [facility] [id number] [place] [address] 13 Mar, 2014 [facility] [place] [facility] [address] [facility] [id number] [place] [address] 13 Mar, 2014 [facility] [place] [facility] [address] [facility] [id number] [place] [address] 13 Mar, 2014 [facility] [place] [facility] [address] [facility] [id number] [place] [address] Mar, [facility] [place] [facility] [address] [id number] [place] [address] Mar, [facility] [place] [facility] [address] [id number] [place] [address] Mar, [facility] [place] [facility] [address] [id number] [place] [address] Mar, [facility] [place] [facility] [address] [id number] [place] [address] Mar, [facility] [place] [facility] [address] [id number] [place] [address] Feb, [facility] [place] [facility] [address] [id number] [place] [address] Feb, [facility] [place] [facility] [address] [id number] [place] [address] Feb, [facility] [place] [facility] [address] [id number] [place] [address] Feb, [facility] [place] [facility] [address] [id number] [place] [address] Feb, [facility] [place] [facility] [address] [id number] [place] [address] Feb, [facility] [place] [facility] [address] [id number] [place] [address] Feb, [facility] [place] [facility] [address] [id number], [place] [address] Feb, [facility] [place] [facility] [address] [id number] [place] [address] Feb, [facility] [place] [facility] [address] [id number] [place] [address] Feb, [facility] [place] [facility] [address] [id number] [place] [address] Feb, [facility] [place] [facility] [address] [id number] [place] [address] Jan, [facility] [address] [id number] [place] [address] Jan, [facility] [address] [id number] [place] [address] 15 Jan, 2014 [facility] [address] [id number] [place] [address] 15 Jan, 2014 [facility] [address] [id number] [place] [address] 15 Jan, 2014 [facility] [address] [id number] [place] [address] Jan, [facility] [address] [id number] [place] [address] Jan, [facility] [address] [id number] [place] [address] Jan, [facility] [address] [id number] [place] [address] Jan, [facility] [address] [id number] [place] [address] Jan, [facility] [address] [id number] [place] [address] Jan, [facility] [place] [facility] [address] [id number] [place] [address] Jan, [facility] [place] [facility] [address] [id number] [place] [address] Jan, [facility] [place] [facility] [address] [id number] [place] [address] Jan, [facility] [place] [facility] [address] [id number] [place] [address] Jan, [facility] [place] [facility] [address] [id number] [place] [address] Dec, [facility] [place] [facility] [address] [id number] [place] [address] Dec, [facility] [place] [facility] [address] [id number] [place] [address] Dec, [facility] [place] [facility] [address] [id number] [place] [address] Dec, [facility] [place] [facility] [address] [id number] [place] [address] Dec, [facility] [place] [facility] [address] [id number] [place] [address] Dec, [facility] [place] [facility] [address] [id number] [place] [address] Dec, [facility] [place] [facility] [address] [id number] [place] [address] Dec, [facility] [place] [facility] [address] [id number] [place] [address] Dec, [facility] [place] [facility] [address] [id number] [place] [address] Dec, [facility] [place] [facility] [address] [id number] [place] [address] Dec, [facility] [place] [facility] [address] [id number] [place] [address] Dec, [facility] [place] [facility] [address] [id number], [place] [address] Dec, [facility] [place] [facility] [address] [id number] [place] [address] Dec, [facility] [place] [facility] [address] [id number] [place] [address] Dec, [facility] [place] [facility] [address] [id number], [place] [address] Dec, [facility] [place] [facility] [address] [id number], [place] [address] Dec, [facility] [place] [facility] [address] [id number] [place] [address] Dec, [facility] [place] [facility] [address] [id number] [place] [address] Dec, [facility] [place] [facility] [address] [id number] [place] [address] Dec, [facility] [place] [facility] [address] [id number] [place] [address] Nov, [facility] [place] [facility] [address] [id number] [place] [address] Nov, [facility] [place] [facility] [address] [id number] [place] [address] Nov, [facility] [place] [facility] [address] [id number] [place] [address] Nov, [facility] [place] [facility] [address] [id number] [place] [address] 15 Nov, 2013 [facility] [place] [facility] [address] [id number] [place] [address] Nov, [facility] [place] [facility] [address] [id number] [place] [address] Nov, [facility] [place] [facility] [address] [id number], [place] [address] Nov, [facility] [place] [facility] [address] [id number], [place] [address] Nov, [facility] [place] [facility] [address] [id number] [place] [address] Nov, [facility] [place] [facility] [address] [id number], [place] [address] Nov, [facility] [place] [facility] [address] [id number] [place] [address] Nov, [facility] [place] [facility] [address] [id number] [place] [address] 22 Oct, 2013 [facility] [place] [facility] [address] [id number] [place] [address] 22 Oct, 2013 [facility] [place] [facility] [address] [id number] [place] [address] 19 Oct, 2013 [facility] [place] [facility] [address] [id number] [place] [address] 19 Oct, 2013 [facility] [place] [facility] [address] [id number] [place] [address] 17 Oct, 2013 [facility] [place] [facility] [address] [id number] [place] [address] 17 Oct, 2013 [facility] [place] [facility] [address] [id number] [place] [address] 16 Oct, 2013 [facility] [place] [facility] [address] [id number] [place] [address] 16 Oct, 2013 [facility] [place] [facility] [address] [id number] [place] [address] Oct, 2013 [facility] [place] [facility] [address] [id number] [place] [address] Oct, 2013 [facility] [place] [facility] [address] [id number] [place] [address] Sep, [facility] [place] [facility] [address] [id number] [place] [address] Sep, [facility] [place] [facility] [address] [id number] [place] [address] Sep, [facility] [place] [facility] [address] [id number] [place] [address] Sep, [facility] [place] [facility] [address] [id number] [place] [address] Sep, [facility] [place] [facility] [address] [id number] [place] [address] Sep, [facility] [place] [facility] [address] [id number] [place] [address] Sep, [facility] [place] [facility] [address] [id number] [place] [address] Sep, [facility] [place] [facility] [address] [id number] [place] [address] Sep, [facility] [place] [facility] [address] [id number] [place] [address] Sep, [facility] [place] [facility] [address] [id number] [place] [address] Sep, [facility] [place] [facility] [address] [id number] [place] [address] Sep, [facility] [place] [facility] [address] [id number] [place] [address] Sep, [facility] [place] [facility] [address] [id number] [place] [address] Sep, [facility] [place] [facility] [address] [id number] [place] [address] Aug, [facility] [place] [facility] [address] [id number] [place] [address] Aug, [facility] [place] [facility] [address] [id number] [place] [address] Aug, [facility] [place] [facility] [address] [id number] [place] [address] Aug, [facility] [place] [facility] [address] [id number] [place] [address] Aug, [facility] [place] [facility] [address] [id number] [place] [address] Aug, [facility] [place] [facility] [address] [id number] [place] [address] Aug, [facility] [place] [facility] [address] [id number] [place] [address] Aug, [facility] [place] [facility] [address] [id number] [place] [address] Aug, [facility] [place] [facility] [address] [id number] [place] [address] Aug, [facility] [place] [facility] [address] [id number] [place] [address] Aug, [facility] [place] [facility] [address] [id number] [place] [address] Jul, [facility] [place] [facility] [address] [id number] [place] [address] Jul, [facility] [place] [facility] [address] [id number] [place] [address] Jul, [facility] [place] [facility] [address] [id number] [place] [address] Jul, [facility] [place] [facility] [address] [id number] [place] [address] Jul, [facility] [place] [facility] [address] [id number] [place] [address] Jul, [facility] [place] [facility] [address] [id number] [place] [address] Jul, [facility] [place] [facility] [address] [id number] [place] [address] Jul, [facility] [place] [facility] [address] [id number] [place] [address] Jul, [facility] [place] [facility] [address] [id number] [place] [address] Jul, [facility] [place] [facility] [address] [id number] [place] [address] June, [facility] [place] [facility] [address] [id number] [place] [address] June, [facility] [place] [facility] [address] [id number] [place] [address] June, [facility] [address] [id number] [place] [address] June, [facility] [place] [facility] [address] [id number] [place] [address] June, [facility] [place] [facility] [address] [id number] [place] [address] June, [facility] [address] [id number] [place] [address] June, [facility] [place] [facility] [address] [id number] [place] [address] June, [facility] [address] [id number] [place] [address] June, [facility] [address] [id number] [place] [address] June, [facility] [address] [id number] [place] [address] June, [facility] [place] [facility] [address] [id number] [place] [address] June, [facility] [place] [facility] [address] [id number] [place] [address] June, [facility] [place] [facility] [address] [id number] [place] [address] June, [facility] [place] [facility] [address] [id number] [place] [address] June, [facility] [place] [facility] [address] [id number] [place] [address] June, [facility] [place] [facility] [address] [id number] [place] [address] June, [facility] [place] [facility] [address] [id number] [place] [address] May, [facility] [place] [facility] [address] [id number] [place] [address] May, [facility] [place] [facility] [address] [id number] [place] [address] May, [facility] [place] [facility] [address] [id number] [place] [address] May, [facility] [place] [facility] [address] [id number] [place] [address] May, [facility] [place] [facility] [address] [id number] [place] [address] May, [facility] [place] [facility] [address] [id number] [place] [address] May, [facility] [place] [facility] [address] [id number] [place] [address] May, [facility] [place] [facility] [address] [id number] [place] [address] May, [facility] [place] [facility] [address] [id number] [place] [address] May, [facility] [place] [facility] [address] [id number] [place] [address] Apr, [facility] [place] [facility] [address] [id number] [place] [address] Apr, [facility] [place] [facility] [address] [id number] [place] [address] Apr, [facility] [place] [facility] [address] [id number] [place] [address] Apr, [facility] [place] [facility] [address] [id number] [place] [address] Apr, [facility] [place] [facility] [address] [id number] [place] [address] Apr, [facility] [place] [facility] [address] [id number] [place] [address] 13 Apr, 2013 [facility] [place] [facility] [address] [id number] [place] [address] 13 Apr, 2013 [facility] [place] [facility] [address] [id number] [place] [address] 07 Apr, 2013 [facility] [place] [facility] [address] [id number] [place] [address] Apr, [facility] [place] [facility] [address] [id number] [place] [address] Mar, [facility] [place] [facility] [address] [id number] [place] [address] Mar, [facility] [place] [facility] [address] [facility] [id number] [place] [address] Mar, [facility] [place] [facility] [address] [id number] [place] [address] Mar, [facility] [place] [facility] [address] [id number] [place] [address] Mar, [facility] [place] [facility] [address] [facility] [id number] [place] [address] Mar, [facility] [place] [facility] [address] [facility] [id number] [place] [address] Mar, [facility] [place] [facility] [address] [facility] [id number] [place] [address] Mar, [facility] [place] [facility] [address] [facility] [id number] [place] [address] Mar, [facility] [place] [facility] [address] [id number] [place] [address] Mar, [facility] [place] [facility] [address] [facility] [id number] [place] [address] 07 Mar, 2013 [facility] [place] [facility] [address] [facility] [id number] [place] [address] Mar, [facility] [address] [id number] [place] [address] Mar, [facility] [place] [facility] [address] [id number] [place] [address] Feb, [facility] [place] [facility] [address] [id number] [place] [address] Feb, [facility] [place] [facility] [address] [id number] [place] [address] Feb, [facility] [place] [facility] [address] [id number] [place] [address] Feb, [facility] [place] [facility] [address] [id number] [place] [address] Feb, [facility] [place] [facility] [address] [id number] [place] [address] Feb, [facility] [place] [facility] [address] [id number] [place] [address] Feb, [facility] [place] [facility] [address] [id number] [place] [address] Feb, [facility] [place] [facility] [address] [id number] [place] [address] Feb, [facility] [place] [facility] [address] [id number] [place] [address] Feb, [facility] [place] [facility] [address] [id number] [place] [address] Jan, [facility] [place] [facility] [address] [id number] [place] [address] Jan, [facility] [place] [facility] [address] [id number] [place] [address] Jan, [facility] [place] [facility] [address] [id number] [place] [address] Jan, [facility] [place] [facility] [address] [id number] [place] [address] Jan, [facility] [address] [id number] [place] [address] Jan, [facility] [place] [facility] [address] [id number] [place] [address] Jan, [facility] [address] [id number] [place] [address] Jan, [facility] [place] [facility] [address] [id number] [place] [address] Jan, [facility] [address] [id number] [place] [address] Jan, [facility] [place] [facility] [address] [id number] [place] [address] Jan, [facility] [place] [facility] [address] [id number] [place] [address] Jan, [facility] [address] [id number] [place] [address] Jan, [facility] [place] [facility] [address] [id number] [place] [address] Jan, [facility] [place] [facility] [address] [id number] [place] [address] Jan, [facility] [place] [facility] [address] [id number] [place] [address] Jan, [facility] [place] [facility] [address] [id number] [place] [address] Dec, [facility] [place] [facility] [address] [id number] [place] [address] Dec, [facility] [place] [facility] [address] [id number] [place] [address] Dec, [facility] [place] [facility] [address] [id number] [place] [address] Dec, [facility] [place] [facility] [address] [id number] [place] [address] 15 Dec, 2012 [facility] [place] [facility] [address] [id number] [place] [address] 15 Dec, 2012 [facility] [place] [facility] [address] [id number] [place] [address] Dec, [facility] [place] [facility] [address] [id number] [place] [address] Dec, [facility] [place] [facility] [address] [id number] [place] [address] Dec, [facility] [place] [facility] [address] [id number] [place] [address] Dec, [facility] [place] [facility] [address] [id number] [place] [address] Nov, [facility] [place] [facility] [address] [id number], [place] [address] 30 Nov, 2012 [facility] [place] [facility] [address] [id number] [place] [address] Nov, [facility] [place] [facility] [address] [id number], [place] [address] Nov, [facility] [place] [facility] [address] [id number], [place] [address] 18 Nov, 2012 [facility] [place] [facility] [address] [id number], [place] [address] 18 Nov, 2012 [facility] [place] [facility] [address] [id number] [place] [address] 14 Nov, 2012 [facility] [place] [facility] [address] [id number], [place] [address] 14 Nov, 2012 [facility] [place] [facility] [address] [id number], [place] [address] 09 Nov, 2012 [facility] [place] [facility] [address] [id number] [place] [address] 09 Nov, 2012 [facility] [address] [id number] [place] [address] 07 Nov, 2012 [facility] [place] [facility] [address] [id number] [place] [address] 05 Nov, 2012 [facility] [place] [facility] [address] [id number] [place] [address] 20 Oct, 2012 [facility] [place] [facility] [address] [id number] [place] [address] 20 Oct, 2012 [facility] [place] [facility] [address] [id number] [place] [address] 19 Oct, 2012 [facility] [place] [facility] [address] [id number] [place] [address] 18 Oct, 2012 [facility] [address] [id number] [place] [address] 13 Oct, 2012 [facility] [place] [facility] [address] [id number] [place] [address] 05 Oct, 2012 [facility] [place] [facility] [address] [id number] [place] [address] 04 Oct, 2012 [facility] [place] [facility] [address] [id number] [place] [address] 28 Sep, 2012 [facility] [place] [facility] [address] [id number] [place] [address] Sep, [facility] [place] [facility] [address] [id number] [place] [address] Sep, [facility] [place] [facility] [address] [id number] [place] [address] Sep, [facility] [place] [facility] [address] [id number] [place] [address] Sep, [facility] [place] [facility] [address] [id number] [place] [address] 08 Sep, 2012 [facility] [place] [facility] [address] [id number] [place] [address] Sep, [facility] [place] [facility] [address] [id number] [place] [address] Aug, [facility] [place] [facility] [address] [id number] [place] [address] Aug, [facility] [place] [facility] [address] [id number] [place] [address] Aug, [facility] [place] [facility] [address] [id number] [place] [address] Aug, [facility] [place] [facility] [address] [id number] [place] [address] Aug, [facility] [place] [facility] [address] [id number] [place] [address] Aug, [facility] [place] [facility] [address] [id number] [place] [address] Aug, [facility] [place] [facility] [address] [id number] [place] [address] Aug, [facility] [place] [facility] [address] [id number] [place] [address] Aug, [facility] [place] [facility] [address] [id number] [place] [address] Jul, [facility] [place] [facility] [address] [id number] [place] [address] Jul, [facility] [place] [facility] [address] [id number] [place] [address] Jul, [facility] [place] [facility] [address] [id number] [place] [address] Jul, [facility] [place] [facility] [address] [id number] [place] [address] Jul, [facility] [place] [facility] [address] [id number] [place] [address] Jul, [facility] [address] [id number] [place] [address] Jul, [facility] [address] [id number] [place] [address] June, [facility] [address] [id number] [place] [address] June, [facility] [address] [id number] [place] [address] June, [facility] [address] [id number] [place] [address] June, [facility] [address] [id number] [place] [address] June, [facility] [address] [id number] [place] [address] June, [facility] [address] [id number] [place] [address] June, [facility] [address] [id number] [place] [address] June, [facility] [address] [id number] [place] [address] May, [facility] [address] [id number] [place] [address] May, [facility] [place] [facility] [address] [id number] [place] [address] 16 May, 2012 [facility] [place] [facility] [address] [id number] [place] [address] 15 May, 2012 [facility] [place] [facility] [address] [id number] [place] [address] 08 May, 2012 [facility] [place] [facility] [address] [id number] [place] [address] May, [facility] [place] [facility] [address] [id number] [place] [address] 04 May, 2012 [facility] [address] [id number] [place] [address] May, [facility] [address] [id number] [place] [address] May, [facility] [address] [id number] [place] [address] May, [facility] [address] [id number] [place] [address] Apr, [facility] [address] [id number] [place] [address] 19 Apr, 2012 [facility] [address] [id number] [place] [address] 18 Apr, 2012 [facility] [address] [id number] [place] [address] 15 Apr, 2012 [facility] [address] [id number] [place] [address] 13 Apr, 2012 [facility] [address] [id number] [place] [address] 05 Apr, 2012 [facility] [address] [facility] [id number] [place] [address] 04 Apr, 2012 [facility] [address] [id number] [place] [address] 28 Mar, 2012 [facility] [address] [id number] [place] [address] Mar, [facility] [address] [id number] [place] [address] Mar, [facility] [address] [id number] [place] [address] Mar, [facility] [address] [id number] [place] [address] Mar, [facility] [place] [facility] [address] [id number] [place] [address] 07 Mar, 2012 [facility] [place] [facility] [address] [id number] [place] [address] 06 Mar, 2012 [facility] [place] [facility] [address] [id number] [place] [address] 05 Mar, 2012 [facility] [place] [facility] [address] [id number] [place] [address] Mar, [facility] [place] [facility] [address] [id number] [place] [address] Feb, [facility] [place] [facility] [address] [id number] [place] [address] Feb, [facility] [place] [facility] [address] [id number] [place] [address] Feb, [facility] [place] [facility] [address] [id number] [place] [address] Feb, [facility] [place] [facility] [address] [id number] [place] [address] Feb, [facility] [place] [facility] [address] [id number] [place] [address] Feb, [facility] [place] [facility] [address] [id number] [place] [address] Feb, [facility] [place] [facility] [address] [id number] [place] [address] Jan, [facility] [place] [facility] [address] [id number] [place] [address] Jan, [facility] [place] [facility] [address] [id number] [place] [address] Jan, [facility] [place] [facility] [address] [id number] [place] [address] Jan, [facility] [place] [facility] [address] [id number] [place] [address] 27 Jan, 2012 [facility] [address] [id number] [place] [address] 27 Jan, 2012 [facility] [place] [facility] [address] [id number] [place] [address] 14 Jan, 2012 [facility] [address] [id number] [place] [address] Jan, [facility] [place] [facility] [address] [id number] [place] [address] 10 Jan, 2012 [facility] [address] [id number] [place] [address] Jan, [facility] [address] [id number] [place] [address] 04 Jan, 2012 [facility] [address] [id number] [place] [address] Jan, [facility] [address] [id number] [place] [address] Jan, [facility] [place] [facility] [address] [id number] [place] [address] Dec, [facility] [address] [id number] [place] [address] 29 Dec, 2011 [facility] [place] [facility] [address] [id number] [place] [address] Dec, [facility] [place] [facility] [address] [id number] [place] [address] Dec, [facility] [place] [facility] [address] [id number] [place] [address] Dec, [facility] [place] [facility] [address] [id number] [place] [address] Dec, [facility] [place] [facility] [address] [id number] [place] [address] Dec, [facility] [place] [facility] [address] [id number] [place] [address] Dec, [facility] [place] [facility] [address] [id number] [place] [address] Dec, [facility] [place] [facility] [address] [id number] [place] [address] Dec, [facility] [place] [facility] [address] [id number] [place] [address] Dec, [facility] [place] [facility] [address] [id number] [place] [address] Dec, [facility] [place] [facility] [address] [id number] [place] [address] Dec, [facility] [place] [facility] [address] [id number] [place] [address] Dec, [facility] [place] [facility] [address] [id number], [place] [address] Nov, [facility] [place] [facility] [address] [id number] [place] [address] Nov, [facility] [place] [facility] [address] [facility] [id number], [place] [address] Nov, [facility] [place] [facility] [address] [id number], [place] [address] Nov, [facility] [place] [facility] [address] [id number], [place] [address] Nov, [facility] [place] [facility] [address] [id number], [place] [address] Nov, [facility] [place] [facility] [address] [id number], [place] [address] Nov, [facility] [place] [facility] [address] [facility] [id number], [place] [address] Nov, [facility] [place] [facility] [address] [id number], [place] [address] Nov, [facility] [place] [facility] [address] [id number] [place] [address] Nov, [facility] [place] [facility] [address] [id number] [place] [address] Nov, [facility] [place] [facility] [address] [facility] [id number] [place] [address] Nov, [facility] [place] [facility] [address] [id number] [place] [address] Nov, [facility] [place] [facility] [address] [id number] [place] [address] 25 Oct, 2011 [facility] [place] [facility] [address] [id number] [place] [address] 25 Oct, 2011 [facility] [place] [facility] [address] [facility] [id number] [place] [address] 24 Oct, 2011 [facility] [place] [facility] [address] [id number] [place] [address] 17 Oct, 2011 [facility] [place] [facility] [address] [id number] [place] [address] 14 Oct, 2011 [facility] [place] [facility] [address] [facility] [id number] [place] [address] 11 Oct, 2011 [facility] [place] [facility] [address] [id number] [place] [address] 06 Oct, 2011 [facility] [place] [facility] [address] [id number], [place] [address] Sep, [facility] [place] [facility] [address] [id number] [place] [address] Sep, [facility] [place] [facility] [address] [facility] [id number], [place] [address] Sep, [facility] [place] [facility] [address] [facility] [id number] [place] [address] Sep, [facility] [place] [facility] [address] [facility] [id number] [place] [address] Aug, IMMUNIZATIONS No Known Immunizations SOCIAL HISTORY Never Assessed REASON FOR VISIT EMR-[facility] PLAN OF CARE VITAL SIGNS MEDICATIONS Unknown [...]
--- OUTSIDE RECORDS SUMMARY | 2018-07-22 18:53 | XMS REPORT ---
Author Author Migration, Doctor Organization [facility] Address Unknown Phone Unavailable Care Team Providers Care Core Winder Machine Operator Name Role Phone Migration, Doctor Unavailable Unavailable PROBLEMS Type Condition ICD9-CM Code [id number] Code Onset Dates Condition Status SNOMED Code Problem Loss of weight 783.21 Active 515593936 Problem Unspecified arthropathy, site unspecified 716.90 Active 418805663 Problem Lumbago 724.2 Active 139996581 Problem Depressive disorder, not elsewhere classified 311 Active 71005575 Problem Other abnormal glucose 790.29 Active 935349816 Problem Anxiety state, unspecified 300.00 Active 144162032 Problem Chronic airway obstruction, not elsewhere classified 496 Active 38400843 Problem 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 [address] [address] Mar, [facility] [address] [address] Feb, Arthropathy, unspecified M12.9 [facility] [id number] [place] [address] Feb, [facility] [id number] [place] [address] Jan, [facility] [address] [address] Jan, [facility] [address] [address] Jan, [facility] [address] [address] Oct, 2014 [facility] [place] [facility] [address] [id number] [place] [address] 10 Oct, 2014 Lumbago 724.2 [facility] [place] [facility] [address] [id number] [place] [address] Oct, 2014 [facility] [place] [facility] [address] [id number] [place] [address] 08 Oct, 2014 [facility] [place] [facility] [address] [id number] [place] [address] 08 Oct, 2014 [facility] [place] [facility] [address] [id number] [place] [address] Oct, 2014 [facility] [place] [facility] [address] [id number] [place] [address] Oct, 2014 [facility] [place] [facility] [address] [id number] [place] [address] Oct, 2014 [facility] [place] [facility] [address] [id number] [place] [address] Sep, 2014 [facility] [place] [facility] [address] [id number] [place] [address] Sep, 2014 [facility] [place] [facility] [address] [id number] [place] [address] Aug, 2014 [facility] [place] [facility] [address] [id number] [place] [address] Aug, 2014 [facility] [place] [facility] [address] [id number] [place] [address] Aug, 2014 [facility] [place] [facility] [address] [id number] [place] [address] Aug, 2014 [facility] [place] [facility] [address] [id number] [place] [address] Aug, 2014 [facility] [place] [facility] [address] [id number] [place] [address] Aug2014 [facility] [place] [facility] [address] [facility] [id number], [place] [address] Jul, Unspecified arthropathy, site unspecified 716.90 [facility] [id number] [address] Jul, [facility] [id number], [place] [address] Jul, [facility] [id number], [place] [address] June, Acute bronchitis 466.0 ; Unspecified arthropathy, site unspecified 716.90 and Chronic pain disorder 338.4 [facility] [id number], [place] [address] June, [facility] [id number], [place] [address] June, [facility] [id number], [place] [address] June, [facility] [id number], [place] [address] June, [facility] [id number], [place] [address] May, [facility] [address] [id number], [place] [address] May, [facility] [address] [id number] [address] May, [facility] [address] [id number], [place] [address] Apr, [facility] [id number], [place] [address] Apr, [facility] [address] [id number], [place] [address] Apr, [facility] [id number], [place] [address] 12 Apr, 2014 [facility] [place] [facility] [address] [id number] [place] [address] Apr, 2014 [facility] [place] [facility] [address] [id number] [place] [address] 10 Apr, 2014 [facility] [place] [facility] [address] [facility] [id number] [place] [address] Apr, 2014 [facility] [place] [facility] [address] [id number] [place] [address] Apr, [facility] [place] [facility] [address] [id number] [place] [address] 24 Mar, 2014 [facility] [place] [facility] [address] [facility] [id number] [place] [address] 24 Mar, 2014 [facility] [place] [facility] [address] [facility] [id number] [place] [address] 17 Mar, 2014 [facility] [place] [facility] [address] [facility] [id number] [place] [address] 17 Mar, 2014 [facility] [place] [facility] [address] [facility] [id number] [place] [address] 17 Mar, 2014 [facility] [place] [facility] [address] [facility] [id number] [place] [address] 17 Mar, 2014 [facility] [place] [facility] [address] [facility] [id number] [place] [address] 13 Mar, 2014 [facility] [place] [facility] [address] [facility] [id number] [place] [address] 13 Mar, 2014 [facility] [place] [facility] [address] [facility] [id number] [place] [address] 13 Mar, 2014 [facility] [place] [facility] [address] [facility] [id number] [place] [address] 13 Mar, 2014 [facility] [place] [facility] [address] [facility] [id number] [place] [address] Mar, [facility] [place] [facility] [address] [id number] [place] [address] Mar, [facility] [place] [facility] [address] [id number] [place] [address] Mar, [facility] [place] [facility] [address] [id number] [place] [address] Mar, [facility] [place] [facility] [address] [id number] [place] [address] Mar, [facility] [place] [facility] [address] [id number] [place] [address] Feb, [facility] [place] [facility] [address] [id number] [place] [address] Feb, [facility] [place] [facility] [address] [id number] [place] [address] Feb, [facility] [place] [facility] [address] [id number] [place] [address] Feb, [facility] [place] [facility] [address] [id number] [place] [address] Feb, [facility] [place] [facility] [address] [id number] [place] [address] Feb, [facility] [place] [facility] [address] [id number] [place] [address] Feb, [facility] [place] [facility] [address] [id number], [place] [address] Feb, [facility] [place] [facility] [address] [id number] [place] [address] Feb, [facility] [place] [facility] [address] [id number] [place] [address] Feb, [facility] [place] [facility] [address] [id number] [place] [address] Feb, [facility] [place] [facility] [address] [id number] [place] [address] Jan, [facility] [address] [id number] [place] [address] Jan, [facility] [address] [id number] [place] [address] 15 Jan, 2014 [facility] [address] [id number] [place] [address] 15 Jan, 2014 [facility] [address] [id number] [place] [address] 15 Jan, 2014 [facility] [address] [id number] [place] [address] Jan, [facility] [address] [id number] [place] [address] Jan, [facility] [address] [id number] [place] [address] Jan, [facility] [address] [id number] [place] [address] Jan, [facility] [address] [id number] [place] [address] Jan, [facility] [address] [id number] [place] [address] Jan, [facility] [place] [facility] [address] [id number] [place] [address] Jan, [facility] [place] [facility] [address] [id number] [place] [address] Jan, [facility] [place] [facility] [address] [id number] [place] [address] Jan, [facility] [place] [facility] [address] [id number] [place] [address] Jan, [facility] [place] [facility] [address] [id number] [place] [address] Dec, [facility] [place] [facility] [address] [id number] [place] [address] Dec, [facility] [place] [facility] [address] [id number] [place] [address] Dec, [facility] [place] [facility] [address] [id number] [place] [address] Dec, [facility] [place] [facility] [address] [id number] [place] [address] Dec, [facility] [place] [facility] [address] [id number] [place] [address] Dec, [facility] [place] [facility] [address] [id number] [place] [address] Dec, [facility] [place] [facility] [address] [id number] [place] [address] Dec, [facility] [place] [facility] [address] [id number] [place] [address] Dec, [facility] [place] [facility] [address] [id number] [place] [address] Dec, [facility] [place] [facility] [address] [id number] [place] [address] Dec, [facility] [place] [facility] [address] [id number] [place] [address] Dec, [facility] [place] [facility] [address] [id number], [place] [address] Dec, [facility] [place] [facility] [address] [id number] [place] [address] Dec, [facility] [place] [facility] [address] [id number] [place] [address] Dec, [facility] [place] [facility] [address] [id number], [place] [address] Dec, [facility] [place] [facility] [address] [id number], [place] [address] Dec, [facility] [place] [facility] [address] [id number] [place] [address] Dec, [facility] [place] [facility] [address] [id number] [place] [address] Dec, [facility] [place] [facility] [address] [id number] [place] [address] Dec, [facility] [place] [facility] [address] [id number] [place] [address] Nov, [facility] [place] [facility] [address] [id number] [place] [address] Nov, [facility] [place] [facility] [address] [id number] [place] [address] Nov, [facility] [place] [facility] [address] [id number] [place] [address] Nov, [facility] [place] [facility] [address] [id number] [place] [address] 15 Nov, 2013 [facility] [place] [facility] [address] [id number] [place] [address] Nov, [facility] [place] [facility] [address] [id number] [place] [address] Nov, [facility] [place] [facility] [address] [id number], [place] [address] Nov, [facility] [place] [facility] [address] [id number], [place] [address] Nov, [facility] [place] [facility] [address] [id number] [place] [address] Nov, [facility] [place] [facility] [address] [id number], [place] [address] Nov, [facility] [place] [facility] [address] [id number] [place] [address] Nov, [facility] [place] [facility] [address] [id number] [place] [address] 22 Oct, 2013 [facility] [place] [facility] [address] [id number] [place] [address] 22 Oct, 2013 [facility] [place] [facility] [address] [id number] [place] [address] 19 Oct, 2013 [facility] [place] [facility] [address] [id number] [place] [address] 19 Oct, 2013 [facility] [place] [facility] [address] [id number] [place] [address] 17 Oct, 2013 [facility] [place] [facility] [address] [id number] [place] [address] 17 Oct, 2013 [facility] [place] [facility] [address] [id number] [place] [address] 16 Oct, 2013 [facility] [place] [facility] [address] [id number] [place] [address] 16 Oct, 2013 [facility] [place] [facility] [address] [id number] [place] [address] Oct, 2013 [facility] [place] [facility] [address] [id number] [place] [address] Oct, 2013 [facility] [place] [facility] [address] [id number] [place] [address] Sep, [facility] [place] [facility] [address] [id number] [place] [address] Sep, [facility] [place] [facility] [address] [id number] [place] [address] Sep, [facility] [place] [facility] [address] [id number] [place] [address] Sep, [facility] [place] [facility] [address] [id number] [place] [address] Sep, [facility] [place] [facility] [address] [id number] [place] [address] Sep, [facility] [place] [facility] [address] [id number] [place] [address] Sep, [facility] [place] [facility] [address] [id number] [place] [address] Sep, [facility] [place] [facility] [address] [id number] [place] [address] Sep, [facility] [place] [facility] [address] [id number] [place] [address] Sep, [facility] [place] [facility] [address] [id number] [place] [address] Sep, [facility] [place] [facility] [address] [id number] [place] [address] Sep, [facility] [place] [facility] [address] [id number] [place] [address] Sep, [facility] [place] [facility] [address] [id number] [place] [address] Sep, [facility] [place] [facility] [address] [id number] [place] [address] Aug, [facility] [place] [facility] [address] [id number] [place] [address] Aug, [facility] [place] [facility] [address] [id number] [place] [address] Aug, [facility] [place] [facility] [address] [id number] [place] [address] Aug, [facility] [place] [facility] [address] [id number] [place] [address] Aug, [facility] [place] [facility] [address] [id number] [place] [address] Aug, [facility] [place] [facility] [address] [id number] [place] [address] Aug, [facility] [place] [facility] [address] [id number] [place] [address] Aug, [facility] [place] [facility] [address] [id number] [place] [address] Aug, [facility] [place] [facility] [address] [id number] [place] [address] Aug, [facility] [place] [facility] [address] [id number] [place] [address] Aug, [facility] [place] [facility] [address] [id number] [place] [address] Jul, [facility] [place] [facility] [address] [id number] [place] [address] Jul, [facility] [place] [facility] [address] [id number] [place] [address] Jul, [facility] [place] [facility] [address] [id number] [place] [address] Jul, [facility] [place] [facility] [address] [id number] [place] [address] Jul, [facility] [place] [facility] [address] [id number] [place] [address] Jul, [facility] [place] [facility] [address] [id number] [place] [address] Jul, [facility] [place] [facility] [address] [id number] [place] [address] Jul, [facility] [place] [facility] [address] [id number] [place] [address] Jul, [facility] [place] [facility] [address] [id number] [place] [address] Jul, [facility] [place] [facility] [address] [id number] [place] [address] June, [facility] [place] [facility] [address] [id number] [place] [address] June, [facility] [place] [facility] [address] [id number] [place] [address] June, [facility] [address] [id number] [place] [address] June, [facility] [place] [facility] [address] [id number] [place] [address] June, [facility] [place] [facility] [address] [id number] [place] [address] June, [facility] [address] [id number] [place] [address] June, [facility] [place] [facility] [address] [id number] [place] [address] June, [facility] [address] [id number] [place] [address] June, [facility] [address] [id number] [place] [address] June, [facility] [address] [id number] [place] [address] June, [facility] [place] [facility] [address] [id number] [place] [address] June, [facility] [place] [facility] [address] [id number] [place] [address] June, [facility] [place] [facility] [address] [id number] [place] [address] June, [facility] [place] [facility] [address] [id number] [place] [address] June, [facility] [place] [facility] [address] [id number] [place] [address] June, [facility] [place] [facility] [address] [id number] [place] [address] June, [facility] [place] [facility] [address] [id number] [place] [address] May, [facility] [place] [facility] [address] [id number] [place] [address] May, [facility] [place] [facility] [address] [id number] [place] [address] May, [facility] [place] [facility] [address] [id number] [place] [address] May, [facility] [place] [facility] [address] [id number] [place] [address] May, [facility] [place] [facility] [address] [id number] [place] [address] May, [facility] [place] [facility] [address] [id number] [place] [address] May, [facility] [place] [facility] [address] [id number] [place] [address] May, [facility] [place] [facility] [address] [id number] [place] [address] May, [facility] [place] [facility] [address] [id number] [place] [address] May, [facility] [place] [facility] [address] [id number] [place] [address] Apr, [facility] [place] [facility] [address] [id number] [place] [address] Apr, [facility] [place] [facility] [address] [id number] [place] [address] Apr, [facility] [place] [facility] [address] [id number] [place] [address] Apr, [facility] [place] [facility] [address] [id number] [place] [address] Apr, [facility] [place] [facility] [address] [id number] [place] [address] Apr, [facility] [place] [facility] [address] [id number] [place] [address] 13 Apr, 2013 [facility] [place] [facility] [address] [id number] [place] [address] 13 Apr, 2013 [facility] [place] [facility] [address] [id number] [place] [address] 07 Apr, 2013 [facility] [place] [facility] [address] [id number] [place] [address] Apr, [facility] [place] [facility] [address] [id number] [place] [address] Mar, [facility] [place] [facility] [address] [id number] [place] [address] Mar, [facility] [place] [facility] [address] [facility] [id number] [place] [address] Mar, [facility] [place] [facility] [address] [id number] [place] [address] Mar, [facility] [place] [facility] [address] [id number] [place] [address] Mar, [facility] [place] [facility] [address] [facility] [id number] [place] [address] Mar, [facility] [place] [facility] [address] [facility] [id number] [place] [address] Mar, [facility] [place] [facility] [address] [facility] [id number] [place] [address] Mar, [facility] [place] [facility] [address] [facility] [id number] [place] [address] Mar, [facility] [place] [facility] [address] [id number] [place] [address] Mar, [facility] [place] [facility] [address] [facility] [id number] [place] [address] 07 Mar, 2013 [facility] [place] [facility] [address] [facility] [id number] [place] [address] Mar, [facility] [address] [id number] [place] [address] Mar, [facility] [place] [facility] [address] [id number] [place] [address] Feb, [facility] [place] [facility] [address] [id number] [place] [address] Feb, [facility] [place] [facility] [address] [id number] [place] [address] Feb, [facility] [place] [facility] [address] [id number] [place] [address] Feb, [facility] [place] [facility] [address] [id number] [place] [address] Feb, [facility] [place] [facility] [address] [id number] [place] [address] Feb, [facility] [place] [facility] [address] [id number] [place] [address] Feb, [facility] [place] [facility] [address] [id number] [place] [address] Feb, [facility] [place] [facility] [address] [id number] [place] [address] Feb, [facility] [place] [facility] [address] [id number] [place] [address] Feb, [facility] [place] [facility] [address] [id number] [place] [address] Jan, [facility] [place] [facility] [address] [id number] [place] [address] Jan, [facility] [place] [facility] [address] [id number] [place] [address] Jan, [facility] [place] [facility] [address] [id number] [place] [address] Jan, [facility] [place] [facility] [address] [id number] [place] [address] Jan, [facility] [address] [id number] [place] [address] Jan, [facility] [place] [facility] [address] [id number] [place] [address] Jan, [facility] [address] [id number] [place] [address] Jan, [facility] [place] [facility] [address] [id number] [place] [address] Jan, [facility] [address] [id number] [place] [address] Jan, [facility] [place] [facility] [address] [id number] [place] [address] Jan, [facility] [place] [facility] [address] [id number] [place] [address] Jan, [facility] [address] [id number] [place] [address] Jan, [facility] [place] [facility] [address] [id number] [place] [address] Jan, [facility] [place] [facility] [address] [id number] [place] [address] Jan, [facility] [place] [facility] [address] [id number] [place] [address] Jan, [facility] [place] [facility] [address] [id number] [place] [address] Dec, [facility] [place] [facility] [address] [id number] [place] [address] Dec, [facility] [place] [facility] [address] [id number] [place] [address] Dec, [facility] [place] [facility] [address] [id number] [place] [address] Dec, [facility] [place] [facility] [address] [id number] [place] [address] 15 Dec, 2012 [facility] [place] [facility] [address] [id number] [place] [address] 15 Dec, 2012 [facility] [place] [facility] [address] [id number] [place] [address] Dec, [facility] [place] [facility] [address] [id number] [place] [address] Dec, [facility] [place] [facility] [address] [id number] [place] [address] Dec, [facility] [place] [facility] [address] [id number] [place] [address] Dec, [facility] [place] [facility] [address] [id number] [place] [address] Nov, [facility] [place] [facility] [address] [id number], [place] [address] 30 Nov, 2012 [facility] [place] [facility] [address] [id number] [place] [address] Nov, [facility] [place] [facility] [address] [id number], [place] [address] Nov, [facility] [place] [facility] [address] [id number], [place] [address] 18 Nov, 2012 [facility] [place] [facility] [address] [id number], [place] [address] 18 Nov, 2012 [facility] [place] [facility] [address] [id number] [place] [address] 14 Nov, 2012 [facility] [place] [facility] [address] [id number], [place] [address] 14 Nov, 2012 [facility] [place] [facility] [address] [id number], [place] [address] 09 Nov, 2012 [facility] [place] [facility] [address] [id number] [place] [address] 09 Nov, 2012 [facility] [address] [id number] [place] [address] 07 Nov, 2012 [facility] [place] [facility] [address] [id number] [place] [address] 05 Nov, 2012 [facility] [place] [facility] [address] [id number] [place] [address] 20 Oct, 2012 [facility] [place] [facility] [address] [id number] [place] [address] 20 Oct, 2012 [facility] [place] [facility] [address] [id number] [place] [address] 19 Oct, 2012 [facility] [place] [facility] [address] [id number] [place] [address] 18 Oct, 2012 [facility] [address] [id number] [place] [address] 13 Oct, 2012 [facility] [place] [facility] [address] [id number] [place] [address] 05 Oct, 2012 [facility] [place] [facility] [address] [id number] [place] [address] 04 Oct, 2012 [facility] [place] [facility] [address] [id number] [place] [address] 28 Sep, 2012 [facility] [place] [facility] [address] [id number] [place] [address] Sep, [facility] [place] [facility] [address] [id number] [place] [address] Sep, [facility] [place] [facility] [address] [id number] [place] [address] Sep, [facility] [place] [facility] [address] [id number] [place] [address] Sep, [facility] [place] [facility] [address] [id number] [place] [address] 08 Sep, 2012 [facility] [place] [facility] [address] [id number] [place] [address] Sep, [facility] [place] [facility] [address] [id number] [place] [address] Aug, [facility] [place] [facility] [address] [id number] [place] [address] Aug, [facility] [place] [facility] [address] [id number] [place] [address] Aug, [facility] [place] [facility] [address] [id number] [place] [address] Aug, [facility] [place] [facility] [address] [id number] [place] [address] Aug, [facility] [place] [facility] [address] [id number] [place] [address] Aug, [facility] [place] [facility] [address] [id number] [place] [address] Aug, [facility] [place] [facility] [address] [id number] [place] [address] Aug, [facility] [place] [facility] [address] [id number] [place] [address] Aug, [facility] [place] [facility] [address] [id number] [place] [address] Jul, [facility] [place] [facility] [address] [id number] [place] [address] Jul, [facility] [place] [facility] [address] [id number] [place] [address] Jul, [facility] [place] [facility] [address] [id number] [place] [address] Jul, [facility] [place] [facility] [address] [id number] [place] [address] Jul, [facility] [place] [facility] [address] [id number] [place] [address] Jul, [facility] [address] [id number] [place] [address] Jul, [facility] [address] [id number] [place] [address] June, [facility] [address] [id number] [place] [address] June, [facility] [address] [id number] [place] [address] June, [facility] [address] [id number] [place] [address] June, [facility] [address] [id number] [place] [address] June, [facility] [address] [id number] [place] [address] June, [facility] [address] [id number] [place] [address] June, [facility] [address] [id number] [place] [address] June, [facility] [address] [id number] [place] [address] May, [facility] [address] [id number] [place] [address] May, [facility] [place] [facility] [address] [id number] [place] [address] 16 May, 2012 [facility] [place] [facility] [address] [id number] [place] [address] 15 May, 2012 [facility] [place] [facility] [address] [id number] [place] [address] 08 May, 2012 [facility] [place] [facility] [address] [id number] [place] [address] May, [facility] [place] [facility] [address] [id number] [place] [address] 04 May, 2012 [facility] [address] [id number] [place] [address] May, [facility] [address] [id number] [place] [address] May, [facility] [address] [id number] [place] [address] May, [facility] [address] [id number] [place] [address] Apr, [facility] [address] [id number] [place] [address] 19 Apr, 2012 [facility] [address] [id number] [place] [address] 18 Apr, 2012 [facility] [address] [id number] [place] [address] 15 Apr, 2012 [facility] [address] [id number] [place] [address] 13 Apr, 2012 [facility] [address] [id number] [place] [address] 05 Apr, 2012 [facility] [address] [facility] [id number] [place] [address] 04 Apr, 2012 [facility] [address] [id number] [place] [address] 28 Mar, 2012 [facility] [address] [id number] [place] [address] Mar, [facility] [address] [id number] [place] [address] Mar, [facility] [address] [id number] [place] [address] Mar, [facility] [address] [id number] [place] [address] Mar, [facility] [place] [facility] [address] [id number] [place] [address] 07 Mar, 2012 [facility] [place] [facility] [address] [id number] [place] [address] 06 Mar, 2012 [facility] [place] [facility] [address] [id number] [place] [address] 05 Mar, 2012 [facility] [place] [facility] [address] [id number] [place] [address] Mar, [facility] [place] [facility] [address] [id number] [place] [address] Feb, [facility] [place] [facility] [address] [id number] [place] [address] Feb, [facility] [place] [facility] [address] [id number] [place] [address] Feb, [facility] [place] [facility] [address] [id number] [place] [address] Feb, [facility] [place] [facility] [address] [id number] [place] [address] Feb, [facility] [place] [facility] [address] [id number] [place] [address] Feb, [facility] [place] [facility] [address] [id number] [place] [address] Feb, [facility] [place] [facility] [address] [id number] [place] [address] Jan, [facility] [place] [facility] [address] [id number] [place] [address] Jan, [facility] [place] [facility] [address] [id number] [place] [address] Jan, [facility] [place] [facility] [address] [id number] [place] [address] Jan, [facility] [place] [facility] [address] [id number] [place] [address] 27 Jan, 2012 [facility] [address] [id number] [place] [address] 27 Jan, 2012 [facility] [place] [facility] [address] [id number] [place] [address] 14 Jan, 2012 [facility] [address] [id number] [place] [address] Jan, [facility] [place] [facility] [address] [id number] [place] [address] 10 Jan, 2012 [facility] [address] [id number] [place] [address] Jan, [facility] [address] [id number] [place] [address] 04 Jan, 2012 [facility] [address] [id number] [place] [address] Jan, [facility] [address] [id number] [place] [address] Jan, [facility] [place] [facility] [address] [id number] [place] [address] Dec, [facility] [address] [id number] [place] [address] 29 Dec, 2011 [facility] [place] [facility] [address] [id number] [place] [address] Dec, [facility] [place] [facility] [address] [id number] [place] [address] Dec, [facility] [place] [facility] [address] [id number] [place] [address] Dec, [facility] [place] [facility] [address] [id number] [place] [address] Dec, [facility] [place] [facility] [address] [id number] [place] [address] Dec, [facility] [place] [facility] [address] [id number] [place] [address] Dec, [facility] [place] [facility] [address] [id number] [place] [address] Dec, [facility] [place] [facility] [address] [id number] [place] [address] Dec, [facility] [place] [facility] [address] [id number] [place] [address] Dec, [facility] [place] [facility] [address] [id number] [place] [address] Dec, [facility] [place] [facility] [address] [id number] [place] [address] Dec, [facility] [place] [facility] [address] [id number] [place] [address] Dec, [facility] [place] [facility] [address] [id number], [place] [address] Nov, [facility] [place] [facility] [address] [id number] [place] [address] Nov, [facility] [place] [facility] [address] [facility] [id number], [place] [address] Nov, [facility] [place] [facility] [address] [id number], [place] [address] Nov, [facility] [place] [facility] [address] [id number], [place] [address] Nov, [facility] [place] [facility] [address] [id number], [place] [address] Nov, [facility] [place] [facility] [address] [id number], [place] [address] Nov, [facility] [place] [facility] [address] [facility] [id number], [place] [address] Nov, [facility] [place] [facility] [address] [id number], [place] [address] Nov, [facility] [place] [facility] [address] [id number] [place] [address] Nov, [facility] [place] [facility] [address] [id number] [place] [address] Nov, [facility] [place] [facility] [address] [facility] [id number] [place] [address] Nov, [facility] [place] [facility] [address] [id number] [place] [address] Nov, [facility] [place] [facility] [address] [id number] [place] [address] 25 Oct, 2011 [facility] [place] [facility] [address] [id number] [place] [address] 25 Oct, 2011 [facility] [place] [facility] [address] [facility] [id number] [place] [address] 24 Oct, 2011 [facility] [place] [facility] [address] [id number] [place] [address] 17 Oct, 2011 [facility] [place] [facility] [address] [id number] [place] [address] 14 Oct, 2011 [facility] [place] [facility] [address] [facility] [id number] [place] [address] 11 Oct, 2011 [facility] [place] [facility] [address] [id number] [place] [address] 06 Oct, 2011 [facility] [place] [facility] [address] [id number], [place] [address] Sep, [facility] [place] [facility] [address] [id number] [place] [address] Sep, [facility] [place] [facility] [address] [facility] [id number], [place] [address] Sep, [facility] [place] [facility] [address] [facility] [id number] [place] [address] Sep, [facility] [place] [facility] [address] [facility] [id number] [place] [address] Aug, IMMUNIZATIONS No Known Immunizations SOCIAL HISTORY Never Assessed [place]ASON FOR [place] [place] VITAL SIGNS MEDICATIONS Unknown [...]
--- OUTSIDE RECORDS SUMMARY | 2018-07-22 18:54 | XMS REPORT ---
Author Author Migration, Doctor Organization [facility] Address Unknown Phone Unavailable Care Team Providers Care Portrait Painter Name Role Phone Migration, Doctor Unavailable Unavailable PROBLEMS Type Condition ICD9-CM Code MEM04-EU Code Onset Dates Condition Status SNOMED Code Problem Loss of weight 783.21 Active 115318602 Problem Unspecified arthropathy, site unspecified 716.90 Active 649973425 Problem Lumbago 724.2 Active 255331795 Problem Depressive disorder, not elsewhere classified 311 Active 43386729 Problem Other abnormal glucose 790.29 Active 181114215 Problem Anxiety state, unspecified 300.00 Active 174858190 Problem Chronic airway obstruction, not elsewhere classified 496 Active 70382584 Problem 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 089301734 Problem Unspecified essential hypertension 401.9 Active 59812422 Problem Migraine, unspecified without mention of intractable migraine without mention of status migrainosus 346.90 Active 61729651 ALLERGIES No Information ENCOUNTERS Encounter Location Date Diagnosis [facility] [address] [address] Mar, [facility] [address] [address] Feb, Arthropathy, unspecified M12.9 [facility] [id number] [place] [address] Feb, [facility] [id number] [place] [address] Jan, [facility] [address] [address] Jan, [facility] [address] [address] Jan, [facility] [address] [address] Oct, 2014 [facility] [place] [facility] [address] [id number] [place] [address] 10 Oct, 2014 Lumbago 724.2 [facility] [place] [facility] [address] [id number] [place] [address] Oct, 2014 [facility] [place] [facility] [address] [id number] [place] [address] 08 Oct, 2014 [facility] [place] [facility] [address] [id number] [place] [address] 08 Oct, 2014 [facility] [place] [facility] [address] [id number] [place] [address] Oct, 2014 [facility] [place] [facility] [address] [id number] [place] [address] Oct, 2014 [facility] [place] [facility] [address] [id number] [place] [address] Oct, 2014 [facility] [place] [facility] [address] [id number] [place] [address] Sep, 2014 [facility] [place] [facility] [address] [id number] [place] [address] Sep, 2014 [facility] [place] [facility] [address] [id number] [place] [address] Aug, 2014 [facility] [place] [facility] [address] [id number] [place] [address] Aug, 2014 [facility] [place] [facility] [address] [id number] [place] [address] Aug, 2014 [facility] [place] [facility] [address] [id number] [place] [address] Aug, 2014 [facility] [place] [facility] [address] [id number] [place] [address] Aug, 2014 [facility] [place] [facility] [address] [id number] [place] [address] Aug2014 [facility] [place] [facility] [address] [facility] [id number], [place] [address] Jul, Unspecified arthropathy, site unspecified 716.90 [facility] [id number] [address] Jul, [facility] [id number] [address] Jul, [facility] [id number] [address] June, Acute bronchitis 466.0 ; Unspecified arthropathy, site unspecified 716.90 and Chronic pain disorder 338.4 [facility] [id number] [address] June, [facility] [id number] [address] June, [facility] [id number], [place] [address] June, [facility] [id number], [place] [address] June, [facility] [id number] [address] May, [facility] [address] [id number] [address] May, [facility] [address] [id number] [address] May, [facility] [address] [id number] [address] Apr, [facility] [id number], [place] [address] Apr, [facility] [address] [id number], [place] [address] Apr, [facility] [id number], [place] [address] 12 Apr, 2014 [facility] [place] [facility] [address] [id number] [place] [address] Apr, 2014 [facility] [place] [facility] [address] [id number] [place] [address] 10 Apr, 2014 [facility] [place] [facility] [address] [facility] [id number] [place] [address] Apr, 2014 [facility] [place] [facility] [address] [id number] [place] [address] Apr, [facility] [place] [facility] [address] [id number] [place] [address] 24 Mar, 2014 [facility] [place] [facility] [address] [facility] [id number] [place] [address] 24 Mar, 2014 [facility] [place] [facility] [address] [facility] [id number] [place] [address] 17 Mar, 2014 [facility] [place] [facility] [address] [facility] [id number] [place] [address] 17 Mar, 2014 [facility] [place] [facility] [address] [facility] [id number] [place] [address] 17 Mar, 2014 [facility] [place] [facility] [address] [facility] [id number] [place] [address] 17 Mar, 2014 [facility] [place] [facility] [address] [facility] [id number] [place] [address] 13 Mar, 2014 [facility] [place] [facility] [address] [facility] [id number] [place] [address] 13 Mar, 2014 [facility] [place] [facility] [address] [facility] [id number] [place] [address] 13 Mar, 2014 [facility] [place] [facility] [address] [facility] [id number] [place] [address] 13 Mar, 2014 [facility] [place] [facility] [address] [facility] [id number] [place] [address] Mar, [facility] [place] [facility] [address] [id number] [place] [address] Mar, [facility] [place] [facility] [address] [id number] [place] [address] Mar, [facility] [place] [facility] [address] [id number] [place] [address] Mar, [facility] [place] [facility] [address] [id number] [place] [address] Mar, [facility] [place] [facility] [address] [id number] [place] [address] Feb, [facility] [place] [facility] [address] [id number] [place] [address] Feb, [facility] [place] [facility] [address] [id number] [place] [address] Feb, [facility] [place] [facility] [address] [id number] [place] [address] Feb, [facility] [place] [facility] [address] [id number] [place] [address] Feb, [facility] [place] [facility] [address] [id number] [place] [address] Feb, [facility] [place] [facility] [address] [id number] [place] [address] Feb, [facility] [place] [facility] [address] [id number], [place] [address] Feb, [facility] [place] [facility] [address] [id number] [place] [address] Feb, [facility] [place] [facility] [address] [id number] [place] [address] Feb, [facility] [place] [facility] [address] [id number] [place] [address] Feb, [facility] [place] [facility] [address] [id number] [place] [address] Jan, [facility] [address] [id number] [place] [address] Jan, [facility] [address] [id number] [place] [address] 15 Jan, 2014 [facility] [address] [id number] [place] [address] 15 Jan, 2014 [facility] [address] [id number] [place] [address] 15 Jan, 2014 [facility] [address] [id number] [place] [address] Jan, [facility] [address] [id number] [place] [address] Jan, [facility] [address] [id number] [place] [address] Jan, [facility] [address] [id number] [place] [address] Jan, [facility] [address] [id number] [place] [address] Jan, [facility] [address] [id number] [place] [address] Jan, [facility] [place] [facility] [address] [id number] [place] [address] Jan, [facility] [place] [facility] [address] [id number] [place] [address] Jan, [facility] [place] [facility] [address] [id number] [place] [address] Jan, [facility] [place] [facility] [address] [id number] [place] [address] Jan, [facility] [place] [facility] [address] [id number] [place] [address] Dec, [facility] [place] [facility] [address] [id number] [place] [address] Dec, [facility] [place] [facility] [address] [id number] [place] [address] Dec, [facility] [place] [facility] [address] [id number] [place] [address] Dec, [facility] [place] [facility] [address] [id number] [place] [address] Dec, [facility] [place] [facility] [address] [id number] [place] [address] Dec, [facility] [place] [facility] [address] [id number] [place] [address] Dec, [facility] [place] [facility] [address] [id number] [place] [address] Dec, [facility] [place] [facility] [address] [id number] [place] [address] Dec, [facility] [place] [facility] [address] [id number] [place] [address] Dec, [facility] [place] [facility] [address] [id number] [place] [address] Dec, [facility] [place] [facility] [address] [id number] [place] [address] Dec, [facility] [place] [facility] [address] [id number], [place] [address] Dec, [facility] [place] [facility] [address] [id number] [place] [address] Dec, [facility] [place] [facility] [address] [id number] [place] [address] Dec, [facility] [place] [facility] [address] [id number], [place] [address] Dec, [facility] [place] [facility] [address] [id number], [place] [address] Dec, [facility] [place] [facility] [address] [id number] [place] [address] Dec, [facility] [place] [facility] [address] [id number] [place] [address] Dec, [facility] [place] [facility] [address] [id number] [place] [address] Dec, [facility] [place] [facility] [address] [id number] [place] [address] Nov, [facility] [place] [facility] [address] [id number] [place] [address] Nov, [facility] [place] [facility] [address] [id number] [place] [address] Nov, [facility] [place] [facility] [address] [id number] [place] [address] Nov, [facility] [place] [facility] [address] [id number] [place] [address] 15 Nov, 2013 [facility] [place] [facility] [address] [id number] [place] [address] Nov, [facility] [place] [facility] [address] [id number] [place] [address] Nov, [facility] [place] [facility] [address] [id number], [place] [address] Nov, [facility] [place] [facility] [address] [id number], [place] [address] Nov, [facility] [place] [facility] [address] [id number] [place] [address] Nov, [facility] [place] [facility] [address] [id number], [place] [address] Nov, [facility] [place] [facility] [address] [id number] [place] [address] Nov, [facility] [place] [facility] [address] [id number] [place] [address] 22 Oct, 2013 [facility] [place] [facility] [address] [id number] [place] [address] 22 Oct, 2013 [facility] [place] [facility] [address] [id number] [place] [address] 19 Oct, 2013 [facility] [place] [facility] [address] [id number] [place] [address] 19 Oct, 2013 [facility] [place] [facility] [address] [id number] [place] [address] 17 Oct, 2013 [facility] [place] [facility] [address] [id number] [place] [address] 17 Oct, 2013 [facility] [place] [facility] [address] [id number] [place] [address] 16 Oct, 2013 [facility] [place] [facility] [address] [id number] [place] [address] 16 Oct, 2013 [facility] [place] [facility] [address] [id number] [place] [address] Oct, 2013 [facility] [place] [facility] [address] [id number] [place] [address] Oct, 2013 [facility] [place] [facility] [address] [id number] [place] [address] Sep, [facility] [place] [facility] [address] [id number] [place] [address] Sep, [facility] [place] [facility] [address] [id number] [place] [address] Sep, [facility] [place] [facility] [address] [id number] [place] [address] Sep, [facility] [place] [facility] [address] [id number] [place] [address] Sep, [facility] [place] [facility] [address] [id number] [place] [address] Sep, [facility] [place] [facility] [address] [id number] [place] [address] Sep, [facility] [place] [facility] [address] [id number] [place] [address] Sep, [facility] [place] [facility] [address] [id number] [place] [address] Sep, [facility] [place] [facility] [address] [id number] [place] [address] Sep, [facility] [place] [facility] [address] [id number] [place] [address] Sep, [facility] [place] [facility] [address] [id number] [place] [address] Sep, [facility] [place] [facility] [address] [id number] [place] [address] Sep, [facility] [place] [facility] [address] [id number] [place] [address] Sep, [facility] [place] [facility] [address] [id number] [place] [address] Aug, [facility] [place] [facility] [address] [id number] [place] [address] Aug, [facility] [place] [facility] [address] [id number] [place] [address] Aug, [facility] [place] [facility] [address] [id number] [place] [address] Aug, [facility] [place] [facility] [address] [id number] [place] [address] Aug, [facility] [place] [facility] [address] [id number] [place] [address] Aug, [facility] [place] [facility] [address] [id number] [place] [address] Aug, [facility] [place] [facility] [address] [id number] [place] [address] Aug, [facility] [place] [facility] [address] [id number] [place] [address] Aug, [facility] [place] [facility] [address] [id number] [place] [address] Aug, [facility] [place] [facility] [address] [id number] [place] [address] Aug, [facility] [place] [facility] [address] [id number] [place] [address] Jul, [facility] [place] [facility] [address] [id number] [place] [address] Jul, [facility] [place] [facility] [address] [id number] [place] [address] Jul, [facility] [place] [facility] [address] [id number] [place] [address] Jul, [facility] [place] [facility] [address] [id number] [place] [address] Jul, [facility] [place] [facility] [address] [id number] [place] [address] Jul, [facility] [place] [facility] [address] [id number] [place] [address] Jul, [facility] [place] [facility] [address] [id number] [place] [address] Jul, [facility] [place] [facility] [address] [id number] [place] [address] Jul, [facility] [place] [facility] [address] [id number] [place] [address] Jul, [facility] [place] [facility] [address] [id number] [place] [address] June, [facility] [place] [facility] [address] [id number] [place] [address] June, [facility] [place] [facility] [address] [id number] [place] [address] June, [facility] [address] [id number] [place] [address] June, [facility] [place] [facility] [address] [id number] [place] [address] June, [facility] [place] [facility] [address] [id number] [place] [address] June, [facility] [address] [id number] [place] [address] June, [facility] [place] [facility] [address] [id number] [place] [address] June, [facility] [address] [id number] [place] [address] June, [facility] [address] [id number] [place] [address] June, [facility] [address] [id number] [place] [address] June, [facility] [place] [facility] [address] [id number] [place] [address] June, [facility] [place] [facility] [address] [id number] [place] [address] June, [facility] [place] [facility] [address] [id number] [place] [address] June, [facility] [place] [facility] [address] [id number] [place] [address] June, [facility] [place] [facility] [address] [id number] [place] [address] June, [facility] [place] [facility] [address] [id number] [place] [address] June, [facility] [place] [facility] [address] [id number] [place] [address] May, [facility] [place] [facility] [address] [id number] [place] [address] May, [facility] [place] [facility] [address] [id number] [place] [address] May, [facility] [place] [facility] [address] [id number] [place] [address] May, [facility] [place] [facility] [address] [id number] [place] [address] May, [facility] [place] [facility] [address] [id number] [place] [address] May, [facility] [place] [facility] [address] [id number] [place] [address] May, [facility] [place] [facility] [address] [id number] [place] [address] May, [facility] [place] [facility] [address] [id number] [place] [address] May, [facility] [place] [facility] [address] [id number] [place] [address] May, [facility] [place] [facility] [address] [id number] [place] [address] Apr, [facility] [place] [facility] [address] [id number] [place] [address] Apr, [facility] [place] [facility] [address] [id number] [place] [address] Apr, [facility] [place] [facility] [address] [id number] [place] [address] Apr, [facility] [place] [facility] [address] [id number] [place] [address] Apr, [facility] [place] [facility] [address] [id number] [place] [address] Apr, [facility] [place] [facility] [address] [id number] [place] [address] 13 Apr, 2013 [facility] [place] [facility] [address] [id number] [place] [address] 13 Apr, 2013 [facility] [place] [facility] [address] [id number] [place] [address] 07 Apr, 2013 [facility] [place] [facility] [address] [id number] [place] [address] Apr, [facility] [place] [facility] [address] [id number] [place] [address] Mar, [facility] [place] [facility] [address] [id number] [place] [address] Mar, [facility] [place] [facility] [address] [facility] [id number] [place] [address] Mar, [facility] [place] [facility] [address] [id number] [place] [address] Mar, [facility] [place] [facility] [address] [id number] [place] [address] Mar, [facility] [place] [facility] [address] [facility] [id number] [place] [address] Mar, [facility] [place] [facility] [address] [facility] [id number] [place] [address] Mar, [facility] [place] [facility] [address] [facility] [id number] [place] [address] Mar, [facility] [place] [facility] [address] [facility] [id number] [place] [address] Mar, [facility] [place] [facility] [address] [id number] [place] [address] Mar, [facility] [place] [facility] [address] [facility] [id number] [place] [address] 07 Mar, 2013 [facility] [place] [facility] [address] [facility] [id number] [place] [address] Mar, [facility] [address] [id number] [place] [address] Mar, [facility] [place] [facility] [address] [id number] [place] [address] Feb, [facility] [place] [facility] [address] [id number] [place] [address] Feb, [facility] [place] [facility] [address] [id number] [place] [address] Feb, [facility] [place] [facility] [address] [id number] [place] [address] Feb, [facility] [place] [facility] [address] [id number] [place] [address] Feb, [facility] [place] [facility] [address] [id number] [place] [address] Feb, [facility] [place] [facility] [address] [id number] [place] [address] Feb, [facility] [place] [facility] [address] [id number] [place] [address] Feb, [facility] [place] [facility] [address] [id number] [place] [address] Feb, [facility] [place] [facility] [address] [id number] [place] [address] Feb, [facility] [place] [facility] [address] [id number] [place] [address] Jan, [facility] [place] [facility] [address] [id number] [place] [address] Jan, [facility] [place] [facility] [address] [id number] [place] [address] Jan, [facility] [place] [facility] [address] [id number] [place] [address] Jan, [facility] [place] [facility] [address] [id number] [place] [address] Jan, [facility] [address] [id number] [place] [address] Jan, [facility] [place] [facility] [address] [id number] [place] [address] Jan, [facility] [address] [id number] [place] [address] Jan, [facility] [place] [facility] [address] [id number] [place] [address] Jan, [facility] [address] [id number] [place] [address] Jan[facility] [place] [facility] [address] [id number] [place] [address] Jan, [facility] [place] [facility] [address] [id number] [place] [address] Jan, [facility] [address] [id number] [place] [address] Jan, [facility] [place] [facility] [address] [id number] [place] [address] Jan, [facility] [place] [facility] [address] [id number] [place] [address] Jan, [facility] [place] [facility] [address] [id number] [place] [address] Jan, [facility] [place] [facility] [address] [id number] [place] [address] Dec, [facility] [place] [facility] [address] [id number] [place] [address] Dec, [facility] [place] [facility] [address] [id number] [place] [address] Dec, [facility] [place] [facility] [address] [id number] [place] [address] Dec, [facility] [place] [facility] [address] [id number] [place] [address] 15 Dec, 2012 [facility] [place] [facility] [address] [id number] [place] [address] 15 Dec, 2012 [facility] [place] [facility] [address] [id number] [place] [address] Dec, [facility] [place] [facility] [address] [id number] [place] [address] Dec, [facility] [place] [facility] [address] [id number] [place] [address] Dec, [facility] [place] [facility] [address] [id number] [place] [address] Dec, [facility] [place] [facility] [address] [id number] [place] [address] Nov, [facility] [place] [facility] [address] [id number] [address] 30 Nov, 2012 [facility] [place] [facility] [address] [id number] [place] [address] Nov, [facility] [place] [facility] [address] [id number], [place] [address] Nov, [facility] [place] [facility] [address] [id number], [place] [address] 18 Nov, 2012 [facility] [place] [facility] [address] [id number], [place] [address] 18 Nov, 2012 [facility] [place] [facility] [address] [id number] [place] [address] 14 Nov, 2012 [facility] [place] [facility] [address] [id number], [place] [address] 14 Nov, 2012 [facility] [place] [facility] [address] [id number], [place] [address] 09 Nov, 2012 [facility] [place] [facility] [address] [id number] [place] [address] 09 Nov, 2012 [facility] [address] [id number] [place] [address] 07 Nov, 2012 [facility] [place] [facility] [address] [id number] [place] [address] 05 Nov, 2012 [facility] [place] [facility] [address] [id number] [place] [address] 20 Oct, 2012 [facility] [place] [facility] [address] [id number] [place] [address] 20 Oct, 2012 [facility] [place] [facility] [address] [id number] [place] [address] 19 Oct, 2012 [facility] [place] [facility] [address] [id number] [place] [address] 18 Oct, 2012 [facility] [address] [id number] [place] [address] 13 Oct, 2012 [facility] [place] [facility] [address] [id number] [place] [address] 05 Oct, 2012 [facility] [place] [facility] [address] [id number] [place] [address] 04 Oct, 2012 [facility] [place] [facility] [address] [id number] [place] [address] 28 Sep, 2012 [facility] [place] [facility] [address] [id number] [place] [address] Sep, [facility] [place] [facility] [address] [id number] [place] [address] Sep, [facility] [place] [facility] [address] [id number] [place] [address] Sep, [facility] [place] [facility] [address] [id number] [place] [address] Sep, [facility] [place] [facility] [address] [id number] [place] [address] 08 Sep, 2012 [facility] [place] [facility] [address] [id number] [place] [address] Sep, [facility] [place] [facility] [address] [id number] [place] [address] Aug, [facility] [place] [facility] [address] [id number] [place] [address] Aug, [facility] [place] [facility] [address] [id number] [place] [address] Aug, [facility] [place] [facility] [address] [id number] [place] [address] Aug, [facility] [place] [facility] [address] [id number] [place] [address] Aug, [facility] [place] [facility] [address] [id number] [place] [address] Aug, [facility] [place] [facility] [address] [id number] [place] [address] Aug, [facility] [place] [facility] [address] [id number] [place] [address] Aug, [facility] [place] [facility] [address] [id number] [place] [address] Aug, [facility] [place] [facility] [address] [id number] [place] [address] Jul, [facility] [place] [facility] [address] [id number] [place] [address] Jul, [facility] [place] [facility] [address] [id number] [place] [address] Jul, [facility] [place] [facility] [address] [id number] [place] [address] Jul, [facility] [place] [facility] [address] [id number] [place] [address] Jul, [facility] [place] [facility] [address] [id number] [place] [address] Jul, [facility] [address] [id number] [place] [address] Jul, [facility] [address] [id number] [place] [address] June, [facility] [address] [id number] [place] [address] June, [facility] [address] [id number] [place] [address] June, [facility] [address] [id number] [place] [address] June, [facility] [address] [id number] [place] [address] June, [facility] [address] [id number] [place] [address] June, [facility] [address] [id number] [place] [address] June, [facility] [address] [id number] [place] [address] June, [facility] [address] [id number] [place] [address] May, [facility] [address] [id number] [place] [address] May, [facility] [place] [facility] [address] [id number] [place] [address] 16 May, 2012 [facility] [place] [facility] [address] [id number] [place] [address] 15 May, 2012 [facility] [place] [facility] [address] [id number] [place] [address] 08 May, 2012 [facility] [place] [facility] [address] [id number] [place] [address] May, [facility] [place] [facility] [address] [id number] [place] [address] 04 May, 2012 [facility] [address] [id number] [place] [address] May, [facility] [address] [id number] [place] [address] May, [facility] [address] [id number] [place] [address] May, [facility] [address] [id number] [place] [address] Apr, [facility] [address] [id number] [place] [address] 19 Apr, 2012 [facility] [address] [id number] [place] [address] 18 Apr, 2012 [facility] [address] [id number] [place] [address] 15 Apr, 2012 [facility] [address] [id number] [place] [address] 13 Apr, 2012 [facility] [address] [id number] [place] [address] 05 Apr, 2012 [facility] [address] [facility] [id number] [place] [address] 04 Apr, 2012 [facility] [address] [id number] [place] [address] 28 Mar, 2012 [facility] [address] [id number] [place] [address] Mar, [facility] [address] [id number] [place] [address] Mar, [facility] [address] [id number] [place] [address] Mar, [facility] [address] [id number] [place] [address] Mar, [facility] [place] [facility] [address] [id number] [place] [address] 07 Mar, 2012 [facility] [place] [facility] [address] [id number] [place] [address] 06 Mar, 2012 [facility] [place] [facility] [address] [id number] [place] [address] 05 Mar, 2012 [facility] [place] [facility] [address] [id number] [place] [address] Mar, [facility] [place] [facility] [address] [id number] [place] [address] Feb, [facility] [place] [facility] [address] [id number] [place] [address] Feb, [facility] [place] [facility] [address] [id number] [place] [address] Feb, [facility] [place] [facility] [address] [id number] [place] [address] Feb, [facility] [place] [facility] [address] [id number] [place] [address] Feb, [facility] [place] [facility] [address] [id number] [place] [address] Feb, [facility] [place] [facility] [address] [id number] [place] [address] Feb, [facility] [place] [facility] [address] [id number] [place] [address] Jan, [facility] [place] [facility] [address] [id number] [place] [address] Jan, [facility] [place] [facility] [address] [id number] [place] [address] Jan, [facility] [place] [facility] [address] [id number] [place] [address] Jan, [facility] [place] [facility] [address] [id number] [place] [address] 27 Jan, 2012 [facility] [address] [id number] [place] [address] 27 Jan, 2012 [facility] [place] [facility] [address] [id number] [place] [address] 14 Jan, 2012 [facility] [address] [id number] [place] [address] Jan, [facility] [place] [facility] [address] [id number] [place] [address] 10 Jan, 2012 [facility] [address] [id number] [place] [address] Jan, [facility] [address] [id number] [place] [address] 04 Jan, 2012 [facility] [address] [id number] [place] [address] Jan, [facility] [address] [id number] [place] [address] Jan, [facility] [place] [facility] [address] [id number] [place] [address] Dec, [facility] [address] [id number] [place] [address] 29 Dec, 2011 [facility] [place] [facility] [address] [id number] [place] [address] Dec, [facility] [place] [facility] [address] [id number] [place] [address] Dec, [facility] [place] [facility] [address] [id number] [place] [address] Dec, [facility] [place] [facility] [address] [id number] [place] [address] Dec, [facility] [place] [facility] [address] [id number] [place] [address] Dec, [facility] [place] [facility] [address] [id number] [place] [address] Dec, [facility] [place] [facility] [address] [id number] [place] [address] Dec, [facility] [place] [facility] [address] [id number] [place] [address] Dec, [facility] [place] [facility] [address] [id number] [place] [address] Dec, [facility] [place] [facility] [address] [id number] [place] [address] Dec, [facility] [place] [facility] [address] [id number] [place] [address] Dec, [facility] [place] [facility] [address] [id number] [place] [address] Dec, [facility] [place] [facility] [address] [id number], [place] [address] Nov, [facility] [place] [facility] [address] [id number] [place] [address] Nov, [facility] [place] [facility] [address] [facility] [id number], [place] [address] Nov, [facility] [place] [facility] [address] [id number], [place] [address] Nov, [facility] [place] [facility] [address] [id number], [place] [address] Nov, [facility] [place] [facility] [address] [id number], [place] [address] Nov, [facility] [place] [facility] [address] [id number], [place] [address] Nov, [facility] [place] [facility] [address] [facility] [id number], [place] [address] Nov, [facility] [place] [facility] [address] [id number], [place] [address] Nov, [facility] [place] [facility] [address] [id number] [place] [address] Nov, [facility] [place] [facility] [address] [id number] [place] [address] Nov, [facility] [place] [facility] [address] [facility] [id number] [place] [address] Nov, [facility] [place] [facility] [address] [id number] [place] [address] Nov, [facility] [place] [facility] [address] [id number] [place] [address] 25 Oct, 2011 [facility] [place] [facility] [address] [id number] [place] [address] 25 Oct, 2011 [facility] [place] [facility] [address] [facility] [id number] [place] [address] 24 Oct, 2011 [facility] [place] [facility] [address] [id number] [place] [address] 17 Oct, 2011 [facility] [place] [facility] [address] [id number] [place] [address] 14 Oct, 2011 [facility] [place] [facility] [address] [facility] [id number] [place] [address] 11 Oct, 2011 [facility] [place] [facility] [address] [id number] [place] [address] 06 Oct, 2011 [facility] [place] [facility] [address] [id number], [place] [address] Sep, [facility] [place] [facility] [address] [id number] [place] [address] Sep, [facility] [place] [facility] [address] [facility] [id number], [place] [address] Sep, [facility] [place] [facility] [address] [facility] [id number] [place] [address] Sep, [facility] [place] [facility] [address] [facility] [id number] [place] [address] Aug, IMMUNIZATIONS No Known Immunizations SOCIAL HISTORY Never Assessed REASON FOR VISIT [place] [place] VITAL SIGNS MEDICATIONS Unknown [...]
--- NOTE | 2018-07-22 18:55 | NUR ---
Report was given to DANIEL EMT and IVET Bains. Care was transferred at this time and they left the facility.
--- OUTSIDE RECORDS SUMMARY | 2018-07-22 18:55 | XMS REPORT ---
Author Author Migration, Doctor Organization [facility] Address Unknown Phone Unavailable Care Team Providers Care Adventure Therapist Name Role Phone Migration, Doctor Unavailable Unavailable PROBLEMS Type Condition ICD9-CM Code ITZ33-ZK Code Onset Dates Condition Status SNOMED Code Problem Loss of weight 783.21 Active 201065889 Problem Unspecified arthropathy, site unspecified 716.90 Active 366536551 Problem Lumbago 724.2 Active 721047430 Problem Depressive disorder, not elsewhere classified 311 Active 60493876 Problem Other abnormal glucose 790.29 Active 238168507 Problem Anxiety state, unspecified 300.00 Active 652549178 Problem Chronic airway obstruction, not elsewhere classified 496 Active 26641969 Problem 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 321103449 Problem Unspecified essential hypertension 401.9 Active 03183835 Problem Migraine, unspecified without mention of intractable migraine without mention of status migrainosus 346.90 Active [id number] ALLERGIES No Information ENCOUNTERS Encounter Location Date Diagnosis [facility] [place] [address] [address] Mar, [facility] [place] [address] [address] Feb, Arthropathy, unspecified M12.9 [facility] [place] [id number] [place] [address] Feb, [facility] [place] [id number] [place] [address] Jan, [facility] [place] [address] [address] Jan, [facility] [place] [address] [address] Jan, [facility] [place] [address] [address] Oct, 2014 [facility] [place] [facility] [address] [id number] [place] [address] 10 Oct, 2014 Lumbago 724.2 [facility] [place] [facility] [address] [id number] [place] [address] Oct, 2014 [facility] [place] [facility] [address] [id number] [place] [address] 08 Oct, 2014 [facility] [place] [facility] [address] [id number] [place] [address] 08 Oct, 2014 [facility] [place] [facility] [address] [id number] [place] [address] Oct, 2014 [facility] [place] [facility] [address] [id number] [place] [address] Oct, 2014 [facility] [place] [facility] [address] [id number] [place] [address] Oct, 2014 [facility] [place] [facility] [address] [id number] [place] [address] Sep, 2014 [facility] [place] [facility] [address] [id number] [place] [address] Sep, 2014 [facility] [place] [facility] [address] [id number] [place] [address] Aug, 2014 [facility] [place] [facility] [address] [id number] [place] [address] Aug, 2014 [facility] [place] [facility] [address] [id number] [place] [address] Aug, 2014 [facility] [place] [facility] [address] [id number] [place] [address] Aug, 2014 [facility] [place] [facility] [address] [id number] [place] [address] Aug, 2014 [facility] [place] [facility] [address] [id number] [place] [address] Aug2014 [facility] [place] [facility] [address] [facility] [id number] [address] Jul, Unspecified arthropathy, site unspecified 716.90 [facility] [place] [address] [address] Jul, [facility] [place] [address] [address] Jul, [facility] [place] [address] [address] June, Acute bronchitis 466.0 ; Unspecified arthropathy, site unspecified 716.90 and Chronic pain disorder 338.4 [facility] [place] [address] [address] June, [facility] [place] [address] [address] June, [facility] [place] [address] [address] June, [facility] [place] [address] [address] June, [facility] [place] [address], [place] [address] May, [facility] [place] [address] [id number] [address] May, [facility] [place] [address] [id number] [address] May, [facility] [address] [id number] [address] Apr, [facility] [address], [place] [address] Apr, [facility] [address] [id number] [address] Apr, [facility] [place] [address], [place] [address] 12 Apr, 2014 [facility] [place] [facility] [address] [id number] [place] [address] Apr, 2014 [facility] [place] [facility] [address] [id number] [place] [address] 10 Apr, 2014 [facility] [place] [facility] [address] [facility] [id number] [place] [address] Apr, 2014 [facility] [place] [facility] [address] [id number] [place] [address] Apr, [facility] [place] [facility] [address] [id number] [place] [address] 24 Mar, 2014 [facility] [place] [facility] [address] [facility] [id number] [place] [address] 24 Mar, 2014 [facility] [place] [facility] [address] [facility] [id number] [place] [address] 17 Mar, 2014 [facility] [place] [facility] [address] [facility] [id number] [place] [address] 17 Mar, 2014 [facility] [place] [facility] [address] [facility] [id number] [place] [address] 17 Mar, 2014 [facility] [place] [facility] [address] [facility] [id number] [place] [address] 17 Mar, 2014 [facility] [place] [facility] [address] [facility] [id number] [place] [address] 13 Mar, 2014 [facility] [place] [facility] [address] [facility] [id number] [place] [address] 13 Mar, 2014 [facility] [place] [facility] [address] [facility] [id number] [place] [address] 13 Mar, 2014 [facility] [place] [facility] [address] [facility] [id number] [place] [address] 13 Mar, 2014 [facility] [place] [facility] [address] [facility] [id number] [place] [address] Mar, [facility] [place] [facility] [address] [id number] [place] [address] Mar, [facility] [place] [facility] [address] [id number] [place] [address] Mar, [facility] [place] [facility] [address] [id number] [place] [address] Mar, [facility] [place] [facility] [address] [id number] [place] [address] Mar, [facility] [place] [facility] [address] [id number] [place] [address] Feb, [facility] [place] [facility] [address] [id number] [place] [address] Feb, [facility] [place] [facility] [address] [id number] [place] [address] Feb, [facility] [place] [facility] [address] [id number] [place] [address] Feb, [facility] [place] [facility] [address] [id number] [place] [address] Feb, [facility] [place] [facility] [address] [id number] [place] [address] Feb, [facility] [place] [facility] [address] [id number] [place] [address] Feb, [facility] [place] [facility] [address] [id number], [place] [address] Feb, [facility] [place] [facility] [address] [id number] [place] [address] Feb, [facility] [place] [facility] [address] [id number] [place] [address] Feb, [facility] [place] [facility] [address] [id number] [place] [address] Feb, [facility] [place] [facility] [address] [id number] [place] [address] Jan, [facility] [address] [id number] [place] [address] Jan, [facility] [address] [id number] [place] [address] 15 Jan, 2014 [facility] [address] [id number] [place] [address] 15 Jan, 2014 [facility] [address] [id number] [place] [address] 15 Jan, 2014 [facility] [address] [id number] [place] [address] Jan, [facility] [address] [id number] [place] [address] Jan, [facility] [address] [id number] [place] [address] Jan, [facility] [address] [id number] [place] [address] Jan, [facility] [address] [id number] [place] [address] Jan, [facility] [address] [id number] [place] [address] Jan, [facility] [place] [facility] [address] [id number] [place] [address] Jan, [facility] [place] [facility] [address] [id number] [place] [address] Jan, [facility] [place] [facility] [address] [id number] [place] [address] Jan, [facility] [place] [facility] [address] [id number] [place] [address] Jan, [facility] [place] [facility] [address] [id number] [place] [address] Dec, [facility] [place] [facility] [address] [id number] [place] [address] Dec, [facility] [place] [facility] [address] [id number] [place] [address] Dec, [facility] [place] [facility] [address] [id number] [place] [address] Dec, [facility] [place] [facility] [address] [id number] [place] [address] Dec, [facility] [place] [facility] [address] [id number] [place] [address] Dec, [facility] [place] [facility] [address] [id number] [place] [address] Dec, [facility] [place] [facility] [address] [id number] [place] [address] Dec, [facility] [place] [facility] [address] [id number] [place] [address] Dec, [facility] [place] [facility] [address] [id number] [place] [address] Dec, [facility] [place] [facility] [address] [id number] [place] [address] Dec, [facility] [place] [facility] [address] [id number] [place] [address] Dec, [facility] [place] [facility] [address] [id number], [place] [address] Dec, [facility] [place] [facility] [address] [id number] [place] [address] Dec, [facility] [place] [facility] [address] [id number] [place] [address] Dec, [facility] [place] [facility] [address] [id number], [place] [address] Dec, [facility] [place] [facility] [address] [id number], [place] [address] Dec, [facility] [place] [facility] [address] [id number] [place] [address] Dec, [facility] [place] [facility] [address] [id number] [place] [address] Dec, [facility] [place] [facility] [address] [id number] [place] [address] Dec, [facility] [place] [facility] [address] [id number] [place] [address] Nov, [facility] [place] [facility] [address] [id number] [place] [address] Nov, [facility] [place] [facility] [address] [id number] [place] [address] Nov, [facility] [place] [facility] [address] [id number] [place] [address] Nov, [facility] [place] [facility] [address] [id number] [place] [address] 15 Nov, 2013 [facility] [place] [facility] [address] [id number] [place] [address] Nov, [facility] [place] [facility] [address] [id number] [place] [address] Nov, [facility] [place] [facility] [address] [id number], [place] [address] Nov, [facility] [place] [facility] [address] [id number], [place] [address] Nov, [facility] [place] [facility] [address] [id number] [place] [address] Nov, [facility] [place] [facility] [address] [id number], [place] [address] Nov, [facility] [place] [facility] [address] [id number] [place] [address] Nov, [facility] [place] [facility] [address] [id number] [place] [address] 22 Oct, 2013 [facility] [place] [facility] [address] [id number] [place] [address] 22 Oct, 2013 [facility] [place] [facility] [address] [id number] [place] [address] 19 Oct, 2013 [facility] [place] [facility] [address] [id number] [place] [address] 19 Oct, 2013 [facility] [place] [facility] [address] [id number] [place] [address] 17 Oct, 2013 [facility] [place] [facility] [address] [id number] [place] [address] 17 Oct, 2013 [facility] [place] [facility] [address] [id number] [place] [address] 16 Oct, 2013 [facility] [place] [facility] [address] [id number] [place] [address] 16 Oct, 2013 [facility] [place] [facility] [address] [id number] [place] [address] Oct, 2013 [facility] [place] [facility] [address] [id number] [place] [address] Oct, 2013 [facility] [place] [facility] [address] [id number] [place] [address] Sep, [facility] [place] [facility] [address] [id number] [place] [address] Sep, [facility] [place] [facility] [address] [id number] [place] [address] Sep, [facility] [place] [facility] [address] [id number] [place] [address] Sep, [facility] [place] [facility] [address] [id number] [place] [address] Sep, [facility] [place] [facility] [address] [id number] [place] [address] Sep, [facility] [place] [facility] [address] [id number] [place] [address] Sep, [facility] [place] [facility] [address] [id number] [place] [address] Sep, [facility] [place] [facility] [address] [id number] [place] [address] Sep, [facility] [place] [facility] [address] [id number] [place] [address] Sep, [facility] [place] [facility] [address] [id number] [place] [address] Sep, [facility] [place] [facility] [address] [id number] [place] [address] Sep, [facility] [place] [facility] [address] [id number] [place] [address] Sep, [facility] [place] [facility] [address] [id number] [place] [address] Sep, [facility] [place] [facility] [address] [id number] [place] [address] Aug, [facility] [place] [facility] [address] [id number] [place] [address] Aug, [facility] [place] [facility] [address] [id number] [place] [address] Aug, [facility] [place] [facility] [address] [id number] [place] [address] Aug, [facility] [place] [facility] [address] [id number] [place] [address] Aug, [facility] [place] [facility] [address] [id number] [place] [address] Aug, [facility] [place] [facility] [address] [id number] [place] [address] Aug, [facility] [place] [facility] [address] [id number] [place] [address] Aug, [facility] [place] [facility] [address] [id number] [place] [address] Aug, [facility] [place] [facility] [address] [id number] [place] [address] Aug, [facility] [place] [facility] [address] [id number] [place] [address] Aug, [facility] [place] [facility] [address] [id number] [place] [address] Jul, [facility] [place] [facility] [address] [id number] [place] [address] Jul, [facility] [place] [facility] [address] [id number] [place] [address] Jul, [facility] [place] [facility] [address] [id number] [place] [address] Jul, [facility] [place] [facility] [address] [id number] [place] [address] Jul, [facility] [place] [facility] [address] [id number] [place] [address] Jul, [facility] [place] [facility] [address] [id number] [place] [address] Jul, [facility] [place] [facility] [address] [id number] [place] [address] Jul, [facility] [place] [facility] [address] [id number] [place] [address] Jul, [facility] [place] [facility] [address] [id number] [place] [address] Jul, [facility] [place] [facility] [address] [id number] [place] [address] June, [facility] [place] [facility] [address] [id number] [place] [address] June, [facility] [place] [facility] [address] [id number] [place] [address] June, [facility] [address] [id number] [place] [address] June, [facility] [place] [facility] [address] [id number] [place] [address] June, [facility] [place] [facility] [address] [id number] [place] [address] June, [facility] [address] [id number] [place] [address] June, [facility] [place] [facility] [address] [id number] [place] [address] June, [facility] [address] [id number] [place] [address] June, [facility] [address] [id number] [place] [address] June, [facility] [address] [id number] [place] [address] June, [facility] [place] [facility] [address] [id number] [place] [address] June, [facility] [place] [facility] [address] [id number] [place] [address] June, [facility] [place] [facility] [address] [id number] [place] [address] June, [facility] [place] [facility] [address] [id number] [place] [address] June, [facility] [place] [facility] [address] [id number] [place] [address] June, [facility] [place] [facility] [address] [id number] [place] [address] June, [facility] [place] [facility] [address] [id number] [place] [address] May, [facility] [place] [facility] [address] [id number] [place] [address] May, [facility] [place] [facility] [address] [id number] [place] [address] May, [facility] [place] [facility] [address] [id number] [place] [address] May, [facility] [place] [facility] [address] [id number] [place] [address] May, [facility] [place] [facility] [address] [id number] [place] [address] May, [facility] [place] [facility] [address] [id number] [place] [address] May, [facility] [place] [facility] [address] [id number] [place] [address] May, [facility] [place] [facility] [address] [id number] [place] [address] May, [facility] [place] [facility] [address] [id number] [place] [address] May, [facility] [place] [facility] [address] [id number] [place] [address] Apr, [facility] [place] [facility] [address] [id number] [place] [address] Apr, [facility] [place] [facility] [address] [id number] [place] [address] Apr, [facility] [place] [facility] [address] [id number] [place] [address] Apr, [facility] [place] [facility] [address] [id number] [place] [address] Apr, [facility] [place] [facility] [address] [id number] [place] [address] Apr, [facility] [place] [facility] [address] [id number] [place] [address] 13 Apr, 2013 [facility] [place] [facility] [address] [id number] [place] [address] 13 Apr, 2013 [facility] [place] [facility] [address] [id number] [place] [address] 07 Apr, 2013 [facility] [place] [facility] [address] [id number] [place] [address] Apr, [facility] [place] [facility] [address] [id number] [place] [address] Mar, [facility] [place] [facility] [address] [id number] [place] [address] Mar, [facility] [place] [facility] [address] [facility] [id number] [place] [address] Mar, [facility] [place] [facility] [address] [id number] [place] [address] Mar, [facility] [place] [facility] [address] [id number] [place] [address] Mar, [facility] [place] [facility] [address] [facility] [id number] [place] [address] Mar, [facility] [place] [facility] [address] [facility] [id number] [place] [address] Mar, [facility] [place] [facility] [address] [facility] [id number] [place] [address] Mar, [facility] [place] [facility] [address] [facility] [id number] [place] [address] Mar, [facility] [place] [facility] [address] [id number] [place] [address] Mar, [facility] [place] [facility] [address] [facility] [id number] [place] [address] 07 Mar, 2013 [facility] [place] [facility] [address] [facility] [id number] [place] [address] Mar, [facility] [address] [id number] [place] [address] Mar, [facility] [place] [facility] [address] [id number] [place] [address] Feb, [facility] [place] [facility] [address] [id number] [place] [address] Feb, [facility] [place] [facility] [address] [id number] [place] [address] Feb, [facility] [place] [facility] [address] [id number] [place] [address] Feb, [facility] [place] [facility] [address] [id number] [place] [address] Feb, [facility] [place] [facility] [address] [id number] [place] [address] Feb, [facility] [place] [facility] [address] [id number] [place] [address] Feb, [facility] [place] [facility] [address] [id number] [place] [address] Feb, [facility] [place] [facility] [address] [id number] [place] [address] Feb, [facility] [place] [facility] [address] [id number] [place] [address] Feb, [facility] [place] [facility] [address] [id number] [place] [address] Jan, [facility] [place] [facility] [address] [id number] [place] [address] Jan, [facility] [place] [facility] [address] [id number] [place] [address] Jan, [facility] [place] [facility] [address] [id number] [place] [address] Jan, [facility] [place] [facility] [address] [id number] [place] [address] Jan, [facility] [address] [id number] [place] [address] Jan, [facility] [place] [facility] [address] [id number] [place] [address] Jan, [facility] [address] [id number] [place] [address] Jan, [facility] [place] [facility] [address] [id number] [place] [address] Jan, [facility] [address] [id number] [place] [address] Jan, [facility] [place] [facility] [address] [id number] [place] [address] Jan, [facility] [place] [facility] [address] [id number] [place] [address] Jan, [facility] [address] [id number] [place] [address] Jan, [facility] [place] [facility] [address] [id number] [place] [address] Jan, [facility] [place] [facility] [address] [id number] [place] [address] Jan, [facility] [place] [facility] [address] [id number] [place] [address] Jan, [facility] [place] [facility] [address] [id number] [place] [address] Dec, [facility] [place] [facility] [address] [id number] [place] [address] Dec, [facility] [place] [facility] [address] [id number] [place] [address] Dec, [facility] [place] [facility] [address] [id number] [place] [address] Dec, [facility] [place] [facility] [address] [id number] [place] [address] 15 Dec, 2012 [facility] [place] [facility] [address] [address] [id number] [place] [address] 15 Dec, 2012 [facility] [place] [facility] [address] [id number] [place] [address] Dec, [facility] [place] [facility] [address] [id number] [place] [address] Dec, [facility] [place] [facility] [address] [id number] [place] [address] Dec, [facility] [place] [facility] [address] [id number] [place] [address] Dec, [facility] [place] [facility] [address] [id number] [place] [address] Nov, [facility] [place] [facility] [address] [id number], [place] [address] 30 Nov, 2012 [facility] [place] [facility] [address] [id number] [place] [address] Nov, [facility] [place] [facility] [address] [id number], [place] [address] Nov, [facility] [place] [facility] [address] [id number], [place] [address] 18 Nov, 2012 [facility] [place] [facility] [address] [id number], [place] [address] 18 Nov, 2012 [facility] [place] [facility] [address] [id number] [place] [address] 14 Nov, 2012 [facility] [place] [facility] [address] [id number], [place] [address] 14 Nov, 2012 [facility] [place] [facility] [address] [id number], [place] [address] 09 Nov, 2012 [facility] [place] [facility] [address] [id number] [place] [address] 09 Nov, 2012 [facility] [address] [id number] [place] [address] 07 Nov, 2012 [facility] [place] [facility] [address] [id number] [place] [address] 05 Nov, 2012 [facility] [place] [facility] [address] [id number] [place] [address] 20 Oct, 2012 [facility] [place] [facility] [address] [id number] [place] [address] 20 Oct, 2012 [facility] [place] [facility] [address] [id number] [place] [address] 19 Oct, 2012 [facility] [place] [facility] [address] [id number] [place] [address] 18 Oct, 2012 [facility] [address] [id number] [place] [address] 13 Oct, 2012 [facility] [place] [facility] [address] [id number] [place] [address] 05 Oct, 2012 [facility] [place] [facility] [address] [id number] [place] [address] 04 Oct, 2012 [facility] [place] [facility] [address] [id number] [place] [address] 28 Sep, 2012 [facility] [place] [facility] [address] [id number] [place] [address] Sep, [facility] [place] [facility] [address] [id number] [place] [address] Sep, [facility] [place] [facility] [address] [id number] [place] [address] Sep, [facility] [place] [facility] [address] [id number] [place] [address] Sep, [facility] [place] [facility] [address] [id number] [place] [address] 08 Sep, 2012 [facility] [place] [facility] [address] [id number] [place] [address] Sep, [facility] [place] [facility] [address] [id number] [place] [address] Aug, [facility] [place] [facility] [address] [id number] [place] [address] Aug, [facility] [place] [facility] [address] [id number] [place] [address] Aug, [facility] [place] [facility] [address] [id number] [place] [address] Aug, [facility] [place] [facility] [address] [id number] [place] [address] Aug, [facility] [place] [facility] [address] [id number] [place] [address] Aug, [facility] [place] [facility] [address] [id number] [place] [address] Aug, [facility] [place] [facility] [address] [id number] [place] [address] Aug, [facility] [place] [facility] [address] [id number] [place] [address] Aug, [facility] [place] [facility] [address] [id number] [place] [address] Jul, [facility] [place] [facility] [address] [id number] [place] [address] Jul, [facility] [place] [facility] [address] [id number] [place] [address] Jul, [facility] [place] [facility] [address] [id number] [place] [address] Jul, [facility] [place] [facility] [address] [id number] [place] [address] Jul, [facility] [place] [facility] [address] [id number] [place] [address] Jul, [facility] [address] [id number] [place] [address] Jul, [facility] [address] [id number] [place] [address] June, [facility] [address] [id number] [place] [address] June, [facility] [address] [id number] [place] [address] June, [facility] [address] [id number] [place] [address] June, [facility] [address] [id number] [place] [address] June, [facility] [address] [id number] [place] [address] June, [facility] [address] [id number] [place] [address] June, [facility] [address] [id number] [place] [address] June, [facility] [address] [id number] [place] [address] May, [facility] [address] [id number] [place] [address] May, [facility] [place] [facility] [address] [id number] [place] [address] 16 May, 2012 [facility] [place] [facility] [address] [id number] [place] [address] 15 May, 2012 [facility] [place] [facility] [address] [id number] [place] [address] 08 May, 2012 [facility] [place] [facility] [address] [id number] [place] [address] May, [facility] [place] [facility] [address] [id number] [place] [address] 04 May, 2012 [facility] [address] [id number] [place] [address] May, [facility] [address] [id number] [place] [address] May, [facility] [address] [id number] [place] [address] May, [facility] [address] [id number] [place] [address] Apr, [facility] [address] [id number] [place] [address] 19 Apr, 2012 [facility] [address] [id number] [place] [address] 18 Apr, 2012 [facility] [address] [id number] [place] [address] 15 Apr, 2012 [facility] [address] [id number] [place] [address] 13 Apr, 2012 [facility] [address] [id number] [place] [address] 05 Apr, 2012 [facility] [address] [facility] [id number] [place] [address] 04 Apr, 2012 [facility] [address] [id number] [place] [address] 28 Mar, 2012 [facility] [address] [id number] [place] [address] Mar, [facility] [address] [id number] [place] [address] Mar, [facility] [address] [id number] [place] [address] Mar, [facility] [address] [id number] [place] [address] Mar, [facility] [place] [facility] [address] [id number] [place] [address] 07 Mar, 2012 [facility] [place] [facility] [address] [id number] [place] [address] 06 Mar, 2012 [facility] [place] [facility] [address] [id number] [place] [address] 05 Mar, 2012 [facility] [place] [facility] [address] [id number] [place] [address] Mar, [facility] [place] [facility] [address] [id number] [place] [address] Feb, [facility] [place] [facility] [address] [id number] [place] [address] Feb, [facility] [place] [facility] [address] [id number] [place] [address] Feb, [facility] [place] [facility] [address] [id number] [place] [address] Feb, [facility] [place] [facility] [address] [id number] [place] [address] Feb, [facility] [place] [facility] [address] [id number] [place] [address] Feb, [facility] [place] [facility] [address] [id number] [place] [address] Feb, [facility] [place] [facility] [address] [id number] [place] [address] Jan, [facility] [place] [facility] [address] [id number] [place] [address] Jan, [facility] [place] [facility] [address] [id number] [place] [address] Jan, [facility] [place] [facility] [address] [id number] [place] [address] Jan, [facility] [place] [facility] [address] [id number] [place] [address] 27 Jan, 2012 [facility] [address] [id number] [place] [address] 27 Jan, 2012 [facility] [place] [facility] [address] [id number] [place] [address] 14 Jan, 2012 [facility] [address] [id number] [place] [address] Jan, [facility] [place] [facility] [address] [id number] [place] [address] 10 Jan, 2012 [facility] [address] [id number] [place] [address] Jan, [facility] [address] [id number] [place] [address] 04 Jan, 2012 [facility] [address] [id number] [place] [address] Jan, [facility] [address] [id number] [place] [address] Jan, [facility] [place] [facility] [address] [id number] [place] [address] Dec, [facility] [address] [id number] [place] [address] 29 Dec, 2011 [facility] [place] [facility] [address] [id number] [place] [address] Dec, [facility] [place] [facility] [address] [id number] [place] [address] Dec, [facility] [place] [facility] [address] [id number] [place] [address] Dec, [facility] [place] [facility] [address] [id number] [place] [address] Dec, [facility] [place] [facility] [address] [id number] [place] [address] Dec, [facility] [place] [facility] [address] [id number] [place] [address] Dec, [facility] [place] [facility] [address] [id number] [place] [address] Dec, [facility] [place] [facility] [address] [id number] [place] [address] Dec, [facility] [place] [facility] [address] [id number] [place] [address] Dec, [facility] [place] [facility] [address] [id number] [place] [address] Dec, [facility] [place] [facility] [address] [id number] [place] [address] Dec, [facility] [place] [facility] [address] [id number] [place] [address] Dec, [facility] [place] [facility] [address] [id number], [place] [address] Nov, [facility] [place] [facility] [address] [id number] [place] [address] Nov, [facility] [place] [facility] [address] [facility] [id number], [place] [address] Nov, [facility] [place] [facility] [address] [id number], [place] [address] Nov, [facility] [place] [facility] [address] [id number], [place] [address] Nov, [facility] [place] [facility] [address] [id number], [place] [address] Nov, [facility] [place] [facility] [address] [id number], [place] [address] Nov, [facility] [place] [facility] [address] [facility] [id number], [place] [address] Nov, [facility] [place] [facility] [address] [id number], [place] [address] Nov, [facility] [place] [facility] [address] [id number] [place] [address] Nov, [facility] [place] [facility] [address] [id number] [place] [address] Nov, [facility] [place] [facility] [address] [facility] [id number] [place] [address] Nov, [facility] [place] [facility] [address] [id number] [place] [address] Nov, [facility] [place] [facility] [address] [id number] [place] [address] 25 Oct, 2011 [facility] [place] [facility] [address] [id number] [place] [address] 25 Oct, 2011 [facility] [place] [facility] [address] [facility] [id number] [place] [address] 24 Oct, 2011 [facility] [place] [facility] [address] [id number] [place] [address] 17 Oct, 2011 [facility] [place] [facility] [address] [id number] [place] [address] 14 Oct, 2011 [facility] [place] [facility] [address] [facility] [id number] [place] [address] 11 Oct, 2011 [facility] [place] [facility] [address] [id number] [place] [address] 06 Oct, 2011 [facility] [place] [facility] [address] [id number], [place] [address] Sep, [facility] [place] [facility] [address] [id number] [place] [address] Sep, [facility] [place] [facility] [address] [facility] [id number], [place] [address] Sep, [facility] [place] [facility] [address] [facility] [id number] [place] [address] Sep, [facility] [place] [facility] [address] [facility] [id number] [place] [address] Aug, IMMUNIZATIONS No Known Immunizations SOCIAL HISTORY Never Assessed REASON FOR VISIT EMR-[facility] PLAN OF CARE VITAL SIGNS MEDICATIONS Unknown [...]
--- OUTSIDE RECORDS SUMMARY | 2018-07-22 18:56 | XMS REPORT ---
Author Author Migration, Doctor Organization [facility] Address Unknown Phone Unavailable Care Team Providers Care Retrofit Installer Name Role Phone Migration, Doctor Unavailable Unavailable PROBLEMS Type Condition ICD9-CM Code [id number] Code Onset Dates Condition Status SNOMED Code Problem Loss of weight 783.21 Active 921888975 Problem Unspecified arthropathy, site unspecified 716.90 Active 666640240 Problem Lumbago 724.2 Active 342037021 Problem Depressive disorder, not elsewhere classified 311 Active 17782415 Problem Other abnormal glucose 790.29 Active 946809890 Problem Anxiety state, unspecified 300.00 Active 219842373 Problem Chronic airway obstruction, not elsewhere classified 496 Active 89878568 Problem 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 569181337 Problem Unspecified essential hypertension 401.9 Active 62880544 Problem Migraine, unspecified without mention of intractable migraine without mention of status migrainosus 346.90 Active [id number] ALLERGIES No Information ENCOUNTERS Encounter Location Date Diagnosis [facility] [address] [address] Mar, [facility] [address] [address] Feb, Arthropathy, unspecified M12.9 [facility] [id number] [place] [address] Feb, [facility] [id number] [place] [address] Jan, [facility] [address] [address] Jan, [facility] [address] [address] Jan, [facility] [address] [address] Oct, 2014 [facility] [place] [facility] [address] [id number] [place] [address] 10 Oct, 2014 Lumbago 724.2 [facility] [place] [facility] [address] [id number] [place] [address] Oct, 2014 [facility] [place] [facility] [address] [id number] [place] [address] 08 Oct, 2014 [facility] [place] [facility] [address] [id number] [place] [address] 08 Oct, 2014 [facility] [place] [facility] [address] [id number] [place] [address] Oct, 2014 [facility] [place] [facility] [address] [id number] [place] [address] Oct, 2014 [facility] [place] [facility] [address] [id number] [place] [address] Oct, 2014 [facility] [place] [facility] [address] [id number] [place] [address] Sep, 2014 [facility] [place] [facility] [address] [id number] [place] [address] Sep, 2014 [facility] [place] [facility] [address] [id number] [place] [address] Aug, 2014 [facility] [place] [facility] [address] [id number] [place] [address] Aug, 2014 [facility] [place] [facility] [address] [id number] [place] [address] Aug, 2014 [facility] [place] [facility] [address] [id number] [place] [address] Aug, 2014 [facility] [place] [facility] [address] [id number] [place] [address] Aug, 2014 [facility] [place] [facility] [address] [id number] [place] [address] Aug2014 [facility] [place] [facility] [address] [facility] [id number] [address] Jul, Unspecified arthropathy, site unspecified 716.90 [facility] [address] [address] Jul, [facility] [address] [address] Jul, [facility] [address] [address] June, Acute bronchitis 466.0 ; Unspecified arthropathy, site unspecified 716.90 and Chronic pain disorder 338.4 [facility] [address], [place] [address] June, [facility] [address], [place] [address] June, [facility] [address], [place] [address] June, [facility] [address], [place] [address] June, [facility] [address], [place] [address] May, [facility] [address] [id number] [address] May, [facility] [address] [id number] [address] May, [facility] [address] [id number] [address] Apr, [facility] [address], [place] [address] Apr, [facility] [address] [id number] [address] Apr, [facility] [address], [place] [address] 12 Apr, 2014 [facility] [place] [facility] [address] [id number] [place] [address] Apr, 2014 [facility] [place] [facility] [address] [id number] [place] [address] 10 Apr, 2014 [facility] [place] [facility] [address] [facility] [id number] [place] [address] Apr, 2014 [facility] [place] [facility] [address] [id number] [place] [address] Apr, [facility] [place] [facility] [address] [id number] [place] [address] 24 Mar, 2014 [facility] [place] [facility] [address] [facility] [id number] [place] [address] 24 Mar, 2014 [facility] [place] [facility] [address] [facility] [id number] [place] [address] 17 Mar, 2014 [facility] [place] [facility] [address] [facility] [id number] [place] [address] 17 Mar, 2014 [facility] [place] [facility] [address] [facility] [id number] [place] [address] 17 Mar, 2014 [facility] [place] [facility] [address] [facility] [id number] [place] [address] 17 Mar, 2014 [facility] [place] [facility] [address] [facility] [id number] [place] [address] 13 Mar, 2014 [facility] [place] [facility] [address] [facility] [id number] [place] [address] 13 Mar, 2014 [facility] [place] [facility] [address] [facility] [id number] [place] [address] 13 Mar, 2014 [facility] [place] [facility] [address] [facility] [id number] [place] [address] 13 Mar, 2014 [facility] [place] [facility] [address] [facility] [id number] [place] [address] Mar, [facility] [place] [facility] [address] [id number] [place] [address] Mar, [facility] [place] [facility] [address] [id number] [place] [address] Mar, [facility] [place] [facility] [address] [id number] [place] [address] Mar, [facility] [place] [facility] [address] [id number] [place] [address] Mar, [facility] [place] [facility] [address] [id number] [place] [address] Feb, [facility] [place] [facility] [address] [id number] [place] [address] Feb, [facility] [place] [facility] [address] [id number] [place] [address] Feb, [facility] [place] [facility] [address] [id number] [place] [address] Feb, [facility] [place] [facility] [address] [id number] [place] [address] Feb, [facility] [place] [facility] [address] [id number] [place] [address] Feb, [facility] [place] [facility] [address] [id number] [place] [address] Feb, [facility] [place] [facility] [address] [id number], [place] [address] Feb, [facility] [place] [facility] [address] [id number] [place] [address] Feb, [facility] [place] [facility] [address] [id number] [place] [address] Feb, [facility] [place] [facility] [address] [id number] [place] [address] Feb, [facility] [place] [facility] [address] [id number] [place] [address] Jan, [facility] [address] [id number] [place] [address] Jan, [facility] [address] [id number] [place] [address] 15 Jan, 2014 [facility] [address] [id number] [place] [address] 15 Jan, 2014 [facility] [address] [id number] [place] [address] 15 Jan, 2014 [facility] [address] [id number] [place] [address] Jan, [facility] [address] [id number] [place] [address] Jan, [facility] [address] [id number] [place] [address] Jan, [facility] [address] [id number] [place] [address] Jan, [facility] [address] [id number] [place] [address] Jan, [facility] [address] [id number] [place] [address] Jan, [facility] [place] [facility] [address] [id number] [place] [address] Jan, [facility] [place] [facility] [address] [id number] [place] [address] Jan, [facility] [place] [facility] [address] [id number] [place] [address] Jan, [facility] [place] [facility] [address] [id number] [place] [address] Jan, [facility] [place] [facility] [address] [id number] [place] [address] Dec, [facility] [place] [facility] [address] [id number] [place] [address] Dec, [facility] [place] [facility] [address] [id number] [place] [address] Dec, [facility] [place] [facility] [address] [id number] [place] [address] Dec, [facility] [place] [facility] [address] [id number] [place] [address] Dec, [facility] [place] [facility] [address] [id number] [place] [address] Dec, [facility] [place] [facility] [address] [id number] [place] [address] Dec, [facility] [place] [facility] [address] [id number] [place] [address] Dec, [facility] [place] [facility] [address] [id number] [place] [address] Dec, [facility] [place] [facility] [address] [id number] [place] [address] Dec, [facility] [place] [facility] [address] [id number] [place] [address] Dec, [facility] [place] [facility] [address] [id number] [place] [address] Dec, [facility] [place] [facility] [address] [id number], [place] [address] Dec, [facility] [place] [facility] [address] [id number] [place] [address] Dec, [facility] [place] [facility] [address] [id number] [place] [address] Dec, [facility] [place] [facility] [address] [id number], [place] [address] Dec, [facility] [place] [facility] [address] [id number], [place] [address] Dec, [facility] [place] [facility] [address] [id number] [place] [address] Dec, [facility] [place] [facility] [address] [id number] [place] [address] Dec, [facility] [place] [facility] [address] [id number] [place] [address] Dec, [facility] [place] [facility] [address] [id number] [place] [address] Nov, [facility] [place] [facility] [address] [id number] [place] [address] Nov, [facility] [place] [facility] [address] [id number] [place] [address] Nov, [facility] [place] [facility] [address] [id number] [place] [address] Nov, [facility] [place] [facility] [address] [id number] [place] [address] 15 Nov, 2013 [facility] [place] [facility] [address] [id number] [place] [address] Nov, [facility] [place] [facility] [address] [id number] [place] [address] Nov, [facility] [place] [facility] [address] [id number], [place] [address] Nov, [facility] [place] [facility] [address] [id number], [place] [address] Nov, [facility] [place] [facility] [address] [id number] [place] [address] Nov, [facility] [place] [facility] [address] [id number], [place] [address] Nov, [facility] [place] [facility] [address] [id number] [place] [address] Nov, [facility] [place] [facility] [address] [id number] [place] [address] 22 Oct, 2013 [facility] [place] [facility] [address] [id number] [place] [address] 22 Oct, 2013 [facility] [place] [facility] [address] [id number] [place] [address] 19 Oct, 2013 [facility] [place] [facility] [address] [id number] [place] [address] 19 Oct, 2013 [facility] [place] [facility] [address] [id number] [place] [address] 17 Oct, 2013 [facility] [place] [facility] [address] [id number] [place] [address] 17 Oct, 2013 [facility] [place] [facility] [address] [id number] [place] [address] 16 Oct, 2013 [facility] [place] [facility] [address] [id number] [place] [address] 16 Oct, 2013 [facility] [place] [facility] [address] [id number] [place] [address] Oct, 2013 [facility] [place] [facility] [address] [id number] [place] [address] Oct, 2013 [facility] [place] [facility] [address] [id number] [place] [address] Sep, [facility] [place] [facility] [address] [id number] [place] [address] Sep, [facility] [place] [facility] [address] [id number] [place] [address] Sep, [facility] [place] [facility] [address] [id number] [place] [address] Sep, [facility] [place] [facility] [address] [id number] [place] [address] Sep, [facility] [place] [facility] [address] [id number] [place] [address] Sep, [facility] [place] [facility] [address] [id number] [place] [address] Sep, [facility] [place] [facility] [address] [id number] [place] [address] Sep, [facility] [place] [facility] [address] [id number] [place] [address] Sep, [facility] [place] [facility] [address] [id number] [place] [address] Sep, [facility] [place] [facility] [address] [id number] [place] [address] Sep, [facility] [place] [facility] [address] [id number] [place] [address] Sep, [facility] [place] [facility] [address] [id number] [place] [address] Sep, [facility] [place] [facility] [address] [id number] [place] [address] Sep, [facility] [place] [facility] [address] [id number] [place] [address] Aug, [facility] [place] [facility] [address] [id number] [place] [address] Aug, [facility] [place] [facility] [address] [id number] [place] [address] Aug, [facility] [place] [facility] [address] [id number] [place] [address] Aug, [facility] [place] [facility] [address] [id number] [place] [address] Aug, [facility] [place] [facility] [address] [id number] [place] [address] Aug, [facility] [place] [facility] [address] [id number] [place] [address] Aug, [facility] [place] [facility] [address] [id number] [place] [address] Aug, [facility] [place] [facility] [address] [id number] [place] [address] Aug, [facility] [place] [facility] [address] [id number] [place] [address] Aug, [facility] [place] [facility] [address] [id number] [place] [address] Aug, [facility] [place] [facility] [address] [id number] [place] [address] Jul, [facility] [place] [facility] [address] [id number] [place] [address] Jul, [facility] [place] [facility] [address] [id number] [place] [address] Jul, [facility] [place] [facility] [address] [id number] [place] [address] Jul, [facility] [place] [facility] [address] [id number] [place] [address] Jul, [facility] [place] [facility] [address] [id number] [place] [address] Jul, [facility] [place] [facility] [address] [id number] [place] [address] Jul, [facility] [place] [facility] [address] [id number] [place] [address] Jul, [facility] [place] [facility] [address] [id number] [place] [address] Jul, [facility] [place] [facility] [address] [id number] [place] [address] Jul, [facility] [place] [facility] [address] [id number] [place] [address] June, [facility] [place] [facility] [address] [id number] [place] [address] June, [facility] [place] [facility] [address] [id number] [place] [address] June, [facility] [address] [id number] [place] [address] June, [facility] [place] [facility] [address] [id number] [place] [address] June, [facility] [place] [facility] [address] [id number] [place] [address] June, [facility] [address] [id number] [place] [address] June, [facility] [place] [facility] [address] [id number] [place] [address] June, [facility] [address] [id number] [place] [address] June, [facility] [address] [id number] [place] [address] June, [facility] [address] [id number] [place] [address] June, [facility] [place] [facility] [address] [id number] [place] [address] June, [facility] [place] [facility] [address] [id number] [place] [address] June, [facility] [place] [facility] [address] [id number] [place] [address] June, [facility] [place] [facility] [address] [id number] [place] [address] June, [facility] [place] [facility] [address] [id number] [place] [address] June, [facility] [place] [facility] [address] [id number] [place] [address] June, [facility] [place] [facility] [address] [id number] [place] [address] May, [facility] [place] [facility] [address] [id number] [place] [address] May, [facility] [place] [facility] [address] [id number] [place] [address] May, [facility] [place] [facility] [address] [id number] [place] [address] May, [facility] [place] [facility] [address] [id number] [place] [address] May, [facility] [place] [facility] [address] [id number] [place] [address] May, [facility] [place] [facility] [address] [id number] [place] [address] May, [facility] [place] [facility] [address] [id number] [place] [address] May, [facility] [place] [facility] [address] [id number] [place] [address] May, [facility] [place] [facility] [address] [id number] [place] [address] May, [facility] [place] [facility] [address] [id number] [place] [address] Apr, [facility] [place] [facility] [address] [id number] [place] [address] Apr, [facility] [place] [facility] [address] [id number] [place] [address] Apr, [facility] [place] [facility] [address] [id number] [place] [address] Apr, [facility] [place] [facility] [address] [id number] [place] [address] Apr, [facility] [place] [facility] [address] [id number] [place] [address] Apr, [facility] [place] [facility] [address] [id number] [place] [address] 13 Apr, 2013 [facility] [place] [facility] [address] [id number] [place] [address] 13 Apr, 2013 [facility] [place] [facility] [address] [id number] [place] [address] 07 Apr, 2013 [facility] [place] [facility] [address] [id number] [place] [address] Apr, [facility] [place] [facility] [address] [id number] [place] [address] Mar, [facility] [place] [facility] [address] [id number] [place] [address] Mar, [facility] [place] [facility] [address] [facility] [id number] [place] [address] Mar, [facility] [place] [facility] [address] [id number] [place] [address] Mar, [facility] [place] [facility] [address] [id number] [place] [address] Mar, [facility] [place] [facility] [address] [facility] [id number] [place] [address] Mar, [facility] [place] [facility] [address] [facility] [id number] [place] [address] Mar, [facility] [place] [facility] [address] [facility] [id number] [place] [address] Mar, [facility] [place] [facility] [address] [facility] [id number] [place] [address] Mar, [facility] [place] [facility] [address] [id number] [place] [address] Mar, [facility] [place] [facility] [address] [facility] [id number] [place] [address] 07 Mar, 2013 [facility] [place] [facility] [address] [facility] [id number] [place] [address] Mar, [facility] [address] [id number] [place] [address] Mar, [facility] [place] [facility] [address] [id number] [place] [address] Feb, [facility] [place] [facility] [address] [id number] [place] [address] Feb, [facility] [place] [facility] [address] [id number] [place] [address] Feb, [facility] [place] [facility] [address] [id number] [place] [address] Feb, [facility] [place] [facility] [address] [id number] [place] [address] Feb, [facility] [place] [facility] [address] [id number] [place] [address] Feb, [facility] [place] [facility] [address] [id number] [place] [address] Feb, [facility] [place] [facility] [address] [id number] [place] [address] Feb, [facility] [place] [facility] [address] [id number] [place] [address] Feb, [facility] [place] [facility] [address] [id number] [place] [address] Feb, [facility] [place] [facility] [address] [id number] [place] [address] Jan, [facility] [place] [facility] [address] [id number] [place] [address] Jan, [facility] [place] [facility] [address] [id number] [place] [address] Jan, [facility] [place] [facility] [address] [id number] [place] [address] Jan, [facility] [place] [facility] [address] [id number] [place] [address] Jan, [facility] [address] [id number] [place] [address] Jan, [facility] [place] [facility] [address] [id number] [place] [address] Jan, [facility] [address] [id number] [place] [address] Jan, [facility] [place] [facility] [address] [id number] [place] [address] Jan, [facility] [address] [id number] [place] [address] Jan, [facility] [place] [facility] [address] [id number] [place] [address] Jan, [facility] [place] [facility] [address] [id number] [place] [address] Jan, [facility] [address] [id number] [place] [address] Jan, [facility] [place] [facility] [address] [id number] [place] [address] Jan, [facility] [place] [facility] [address] [id number] [place] [address] Jan, [facility] [place] [facility] [address] [id number] [place] [address] Jan, [facility] [place] [facility] [address] [id number] [place] [address] Dec, [facility] [place] [facility] [address] [id number] [place] [address] Dec, [facility] [place] [facility] [address] [id number] [place] [address] Dec, [facility] [place] [facility] [address] [id number] [place] [address] Dec, [facility] [place] [facility] [address] [id number] [place] [address] 15 Dec, 2012 [facility] [place] [facility] [address] [id number] [place] [address] 15 Dec, 2012 [facility] [place] [facility] [address] [id number] [place] [address] Dec, [facility] [place] [facility] [address] [id number] [place] [address] Dec, [facility] [place] [facility] [address] [id number] [place] [address] Dec, [facility] [place] [facility] [address] [id number] [place] [address] Dec, [facility] [place] [facility] [address] [id number] [place] [address] Nov, [facility] [place] [facility] [address] [id number], [place] [address] 30 Nov, 2012 [facility] [place] [facility] [address] [id number] [place] [address] Nov, [facility] [place] [facility] [address] [id number], [place] [address] Nov, [facility] [place] [facility] [address] [id number], [place] [address] 18 Nov, 2012 [facility] [place] [facility] [address] [id number], [place] [address] 18 Nov, 2012 [facility] [place] [facility] [address] [id number] [place] [address] 14 Nov, 2012 [facility] [place] [facility] [address] [id number], [place] [address] 14 Nov, 2012 [facility] [place] [facility] [address] [id number], [place] [address] 09 Nov, 2012 [facility] [place] [facility] [address] [id number] [place] [address] 09 Nov, 2012 [facility] [address] [id number] [place] [address] 07 Nov, 2012 [facility] [place] [facility] [address] [id number] [place] [address] 05 Nov, 2012 [facility] [place] [facility] [address] [id number] [place] [address] 20 Oct, 2012 [facility] [place] [facility] [address] [id number] [place] [address] 20 Oct, 2012 [facility] [place] [facility] [address] [id number] [place] [address] 19 Oct, 2012 [facility] [place] [facility] [address] [id number] [place] [address] 18 Oct, 2012 [facility] [address] [id number] [place] [address] 13 Oct, 2012 [facility] [place] [facility] [address] [id number] [place] [address] 05 Oct, 2012 [facility] [place] [facility] [address] [id number] [place] [address] 04 Oct, 2012 [facility] [place] [facility] [address] [id number] [place] [address] 28 Sep, 2012 [facility] [place] [facility] [address] [id number] [place] [address] Sep, [facility] [place] [facility] [address] [id number] [place] [address] Sep, [facility] [place] [facility] [address] [id number] [place] [address] Sep, [facility] [place] [facility] [address] [id number] [place] [address] Sep, [facility] [place] [facility] [address] [id number] [place] [address] 08 Sep, 2012 [facility] [place] [facility] [address] [id number] [place] [address] Sep, [facility] [place] [facility] [address] [id number] [place] [address] Aug, [facility] [place] [facility] [address] [id number] [place] [address] Aug, [facility] [place] [facility] [address] [id number] [place] [address] Aug, [facility] [place] [facility] [address] [id number] [place] [address] Aug, [facility] [place] [facility] [address] [id number] [place] [address] Aug, [facility] [place] [facility] [address] [id number] [place] [address] Aug, [facility] [place] [facility] [address] [id number] [place] [address] Aug, [facility] [place] [facility] [address] [id number] [place] [address] Aug, [facility] [place] [facility] [address] [id number] [place] [address] Aug, [facility] [place] [facility] [address] [id number] [place] [address] Jul, [facility] [place] [facility] [address] [id number] [place] [address] Jul, [facility] [place] [facility] [address] [id number] [place] [address] Jul, [facility] [place] [facility] [address] [id number] [place] [address] Jul, [facility] [place] [facility] [address] [id number] [place] [address] Jul, [facility] [place] [facility] [address] [id number] [place] [address] Jul, [facility] [address] [id number] [place] [address] Jul, [facility] [address] [id number] [place] [address] June, [facility] [address] [id number] [place] [address] June, [facility] [address] [id number] [place] [address] June, [facility] [address] [id number] [place] [address] June, [facility] [address] [id number] [place] [address] June, [facility] [address] [id number] [place] [address] June, [facility] [address] [id number] [place] [address] June, [facility] [address] [id number] [place] [address] June, [facility] [address] [id number] [place] [address] May, [facility] [address] [id number] [place] [address] May, [facility] [place] [facility] [address] [id number] [place] [address] 16 May, 2012 [facility] [place] [facility] [address] [id number] [place] [address] 15 May, 2012 [facility] [place] [facility] [address] [id number] [place] [address] 08 May, 2012 [facility] [place] [facility] [address] [id number] [place] [address] May, [facility] [place] [facility] [address] [id number] [place] [address] 04 May, 2012 [facility] [address] [id number] [place] [address] May, [facility] [address] [id number] [place] [address] May, [facility] [address] [id number] [place] [address] May, [facility] [address] [id number] [place] [address] Apr, [facility] [address] [id number] [place] [address] 19 Apr, 2012 [facility] [address] [id number] [place] [address] 18 Apr, 2012 [facility] [address] [id number] [place] [address] 15 Apr, 2012 [facility] [address] [id number] [place] [address] 13 Apr, 2012 [facility] [address] [id number] [place] [address] 05 Apr, 2012 [facility] [address] [facility] [id number] [place] [address] 04 Apr, 2012 [facility] [address] [id number] [place] [address] 28 Mar, 2012 [facility] [address] [id number] [place] [address] Mar, [facility] [address] [id number] [place] [address] Mar, [facility] [address] [id number] [place] [address] Mar, [facility] [address] [id number] [place] [address] Mar, [facility] [place] [facility] [address] [id number] [place] [address] 07 Mar, 2012 [facility] [place] [facility] [address] [id number] [place] [address] 06 Mar, 2012 [facility] [place] [facility] [address] [id number] [place] [address] 05 Mar, 2012 [facility] [place] [facility] [address] [id number] [place] [address] Mar, [facility] [place] [facility] [address] [id number] [place] [address] Feb, [facility] [place] [facility] [address] [id number] [place] [address] Feb, [facility] [place] [facility] [address] [id number] [place] [address] Feb, [facility] [place] [facility] [address] [id number] [place] [address] Feb, [facility] [place] [facility] [address] [id number] [place] [address] Feb, [facility] [place] [facility] [address] [id number] [place] [address] Feb, [facility] [place] [facility] [address] [id number] [place] [address] Feb, [facility] [place] [facility] [address] [id number] [place] [address] Jan, [facility] [place] [facility] [address] [id number] [place] [address] Jan, [facility] [place] [facility] [address] [id number] [place] [address] Jan, [facility] [place] [facility] [address] [id number] [place] [address] Jan, [facility] [place] [facility] [address] [id number] [place] [address] 27 Jan, 2012 [facility] [address] [id number] [place] [address] 27 Jan, 2012 [facility] [place] [facility] [address] [id number] [place] [address] 14 Jan, 2012 [facility] [address] [id number] [place] [address] Jan, [facility] [place] [facility] [address] [id number] [place] [address] 10 Jan, 2012 [facility] [address] [id number] [place] [address] Jan, [facility] [address] [id number] [place] [address] 04 Jan, 2012 [facility] [address] [id number] [place] [address] Jan, [facility] [address] [id number] [place] [address] Jan, [facility] [place] [facility] [address] [id number] [place] [address] Dec, [facility] [address] [id number] [place] [address] 29 Dec, 2011 [facility] [place] [facility] [address] [id number] [place] [address] Dec, [facility] [place] [facility] [address] [id number] [place] [address] Dec, [facility] [place] [facility] [address] [id number] [place] [address] Dec, [facility] [place] [facility] [address] [id number] [place] [address] Dec, [facility] [place] [facility] [address] [id number] [place] [address] Dec, [facility] [place] [facility] [address] [id number] [place] [address] Dec, [facility] [place] [facility] [address] [id number] [place] [address] Dec, [facility] [place] [facility] [address] [id number] [place] [address] Dec, [facility] [place] [facility] [address] [id number] [place] [address] Dec, [facility] [place] [facility] [address] [id number] [place] [address] Dec, [facility] [place] [facility] [address] [id number] [place] [address] Dec, [facility] [place] [facility] [address] [id number] [place] [address] Dec, [facility] [place] [facility] [address] [id number], [place] [address] Nov, [facility] [place] [facility] [address] [id number] [place] [address] Nov, [facility] [place] [facility] [address] [facility] [id number], [place] [address] Nov, [facility] [place] [facility] [address] [id number], [place] [address] Nov, [facility] [place] [facility] [address] [id number], [place] [address] Nov, [facility] [place] [facility] [address] [id number], [place] [address] Nov, [facility] [place] [facility] [address] [id number], [place] [address] Nov, [facility] [place] [facility] [address] [facility] [id number], [place] [address] Nov, [facility] [place] [facility] [address] [id number], [place] [address] Nov, [facility] [place] [facility] [address] [id number] [place] [address] Nov, [facility] [place] [facility] [address] [id number] [place] [address] Nov, [facility] [place] [facility] [address] [facility] [id number] [place] [address] Nov, [facility] [place] [facility] [address] [id number] [place] [address] Nov, [facility] [place] [facility] [address] [id number] [place] [address] 25 Oct, 2011 [facility] [place] [facility] [address] [id number] [place] [address] 25 Oct, 2011 [facility] [place] [facility] [address] [facility] [id number] [place] [address] 24 Oct, 2011 [facility] [place] [facility] [address] [id number] [place] [address] 17 Oct, 2011 [facility] [place] [facility] [address] [id number] [place] [address] 14 Oct, 2011 [facility] [place] [facility] [address] [facility] [id number] [place] [address] 11 Oct, 2011 [facility] [place] [facility] [address] [id number] [place] [address] 06 Oct, 2011 [facility] [place] [facility] [address] [id number], [place] [address] Sep, [facility] [place] [facility] [address] [id number] [place] [address] Sep, [facility] [place] [facility] [address] [facility] [id number], [place] [address] Sep, [facility] [place] [facility] [address] [facility] [id number] [place] [address] Sep, [facility] [place] [facility] [address] [facility] [id number] [place] [address] Aug, IMMUNIZATIONS No Known Immunizations SOCIAL HISTORY Never Assessed REASON FOR [place]ISIT [place] [place] VITAL SIGNS MEDICATIONS Unknown [...]
--- OUTSIDE RECORDS SUMMARY | 2018-07-22 18:56 | XMS REPORT ---
Author Author Migration, Doctor Organization [facility] Address Unknown Phone Unavailable Care Team Providers Care Developer Automatic Name Role Phone Migration, Doctor Unavailable Unavailable PROBLEMS Type Condition ICD9-CM Code KVL60-VO Code Onset Dates Condition Status SNOMED Code Problem Loss of weight 783.21 Active 350122984 Problem Unspecified arthropathy, site unspecified 716.90 Active 269977743 Problem Lumbago 724.2 Active 233443537 Problem Depressive disorder, not elsewhere classified 311 Active 92145049 Problem Other abnormal glucose 790.29 Active 107857082 Problem Anxiety state, unspecified 300.00 Active 233235715 Problem Chronic airway obstruction, not elsewhere classified 496 Active 54610084 Problem 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 715326839 Problem Unspecified essential hypertension 401.9 Active 58235182 Problem Migraine, unspecified without mention of intractable migraine without mention of status migrainosus 346.90 Active 23897662 ALLERGIES No Information ENCOUNTERS Encounter Location Date Diagnosis [facility] [address] [address] Mar, [facility] [address] [address] Feb, Arthropathy, unspecified M12.9 [facility] [id number] [place] [address] Feb, [facility] [id number] [place] [address] Jan, [facility] [address] [address] Jan, [facility] [address] [address] Jan, [facility] [address] [address] Oct, 2014 [facility] [place] [facility] [address] [id number] [place] [address] 10 Oct, 2014 Lumbago 724.2 [facility] [place] [facility] [address] [id number] [place] [address] Oct, 2014 [facility] [place] [facility] [address] [id number] [place] [address] 08 Oct, 2014 [facility] [place] [facility] [address] [id number] [place] [address] 08 Oct, 2014 [facility] [place] [facility] [address] [id number] [place] [address] Oct, 2014 [facility] [place] [facility] [address] [id number] [place] [address] Oct, 2014 [facility] [place] [facility] [address] [id number] [place] [address] Oct, 2014 [facility] [place] [facility] [address] [id number] [place] [address] Sep, 2014 [facility] [place] [facility] [address] [id number] [place] [address] Sep, 2014 [facility] [place] [facility] [address] [id number] [place] [address] Aug, 2014 [facility] [place] [facility] [address] [id number] [place] [address] Aug, 2014 [facility] [place] [facility] [address] [id number] [place] [address] Aug, 2014 [facility] [place] [facility] [address] [id number] [place] [address] Aug, 2014 [facility] [place] [facility] [address] [id number] [place] [address] Aug, 2014 [facility] [place] [facility] [address] [id number] [place] [address] Aug2014 [facility] [place] [facility] [address] [facility] [id number] [address] Jul, Unspecified arthropathy, site unspecified 716.90 [facility] [id number] [address] Jul, [facility] [id number] [address] Jul, [facility] [id number] [address] June, Acute bronchitis 466.0 ; Unspecified arthropathy, site unspecified 716.90 and Chronic pain disorder 338.4 [facility] [id number] [address] June, [facility] [id number] [address] June, [facility] [id number] [address] June, [facility] [id number] [address] June, [facility] [id number] [address] May, [facility] [address] [id number] [address] May, [facility] [address] [id number] [address] May, [facility] [address] [id number] [address] Apr, [facility] [id number] [address] Apr, [facility] [address] [id number] [address] Apr, [facility] [id number] [address] 12 Apr, 2014 [facility] [place] [facility] [address] [id number] [place] [address] Apr, 2014 [facility] [place] [facility] [address] [id number] [place] [address] 10 Apr, 2014 [facility] [place] [facility] [address] [facility] [id number] [place] [address] Apr, 2014 [facility] [place] [facility] [address] [id number] [place] [address] Apr, [facility] [place] [facility] [address] [id number] [place] [address] 24 Mar, 2014 [facility] [place] [facility] [address] [facility] [id number] [place] [address] 24 Mar, 2014 [facility] [place] [facility] [address] [facility] [id number] [place] [address] 17 Mar, 2014 [facility] [place] [facility] [address] [facility] [id number] [place] [address] 17 Mar, 2014 [facility] [place] [facility] [address] [facility] [id number] [place] [address] 17 Mar, 2014 [facility] [place] [facility] [address] [facility] [id number] [place] [address] 17 Mar, 2014 [facility] [place] [facility] [address] [facility] [id number] [place] [address] 13 Mar, 2014 [facility] [place] [facility] [address] [facility] [id number] [place] [address] 13 Mar, 2014 [facility] [place] [facility] [address] [facility] [id number] [place] [address] 13 Mar, 2014 [facility] [place] [facility] [address] [facility] [id number] [place] [address] 13 Mar, 2014 [facility] [place] [facility] [address] [facility] [id number] [place] [address] Mar, [facility] [place] [facility] [address] [id number] [place] [address] Mar, [facility] [place] [facility] [address] [id number] [place] [address] Mar, [facility] [place] [facility] [address] [id number] [place] [address] Mar, [facility] [place] [facility] [address] [id number] [place] [address] Mar, [facility] [place] [facility] [address] [id number] [place] [address] Feb, [facility] [place] [facility] [address] [id number] [place] [address] Feb, [facility] [place] [facility] [address] [id number] [place] [address] Feb, [facility] [place] [facility] [address] [id number] [place] [address] Feb, [facility] [place] [facility] [address] [id number] [place] [address] Feb, [facility] [place] [facility] [address] [id number] [place] [address] Feb, [facility] [place] [facility] [address] [id number] [place] [address] Feb, [facility] [place] [facility] [address] [id number] [place] [address] Feb, [facility] [place] [facility] [address] [id number] [place] [address] Feb, [facility] [place] [facility] [address] [id number] [place] [address] Feb, [facility] [place] [facility] [address] [id number] [place] [address] Feb, [facility] [place] [facility] [address] [id number] [place] [address] Jan, [facility] [address] [id number] [place] [address] Jan, [facility] [address] [id number] [place] [address] 15 Jan, 2014 [facility] [address] [id number] [place] [address] 15 Jan, 2014 [facility] [address] [id number] [place] [address] 15 Jan, 2014 [facility] [address] [id number] [place] [address] Jan, [facility] [address] [id number] [place] [address] Jan, [facility] [address] [id number] [place] [address] Jan, [facility] [address] [id number] [place] [address] Jan, [facility] [address] [id number] [place] [address] Jan, [facility] [address] [id number] [place] [address] Jan, [facility] [place] [facility] [address] [id number] [place] [address] Jan, [facility] [place] [facility] [address] [id number] [place] [address] Jan, [facility] [place] [facility] [address] [id number] [place] [address] Jan, [facility] [place] [facility] [address] [id number] [place] [address] Jan, [facility] [place] [facility] [address] [id number] [place] [address] Dec, [facility] [place] [facility] [address] [id number] [place] [address] Dec, [facility] [place] [facility] [address] [id number] [place] [address] Dec, [facility] [place] [facility] [address] [id number] [place] [address] Dec, [facility] [place] [facility] [address] [id number] [place] [address] Dec, [facility] [place] [facility] [address] [id number] [place] [address] Dec, [facility] [place] [facility] [address] [id number] [place] [address] Dec, [facility] [place] [facility] [address] [id number] [place] [address] Dec, [facility] [place] [facility] [address] [id number] [place] [address] Dec, [facility] [place] [facility] [address] [id number] [place] [address] Dec, [facility] [place] [facility] [address] [id number] [place] [address] Dec, [facility] [place] [facility] [address] [id number] [place] [address] Dec, [facility] [place] [facility] [address] [id number] [place] [address] Dec, [facility] [place] [facility] [address] [id number] [place] [address] Dec, [facility] [place] [facility] [address] [id number] [place] [address] Dec, [facility] [place] [facility] [address] [id number] [place] [address] Dec, [facility] [place] [facility] [address] [id number] [place] [address] Dec, [facility] [place] [facility] [address] [id number] [place] [address] Dec, [facility] [place] [facility] [address] [id number] [place] [address] Dec, [facility] [place] [facility] [address] [id number] [place] [address] Dec, [facility] [place] [facility] [address] [id number] [place] [address] Nov, [facility] [place] [facility] [address] [id number] [place] [address] Nov, [facility] [place] [facility] [address] [id number] [place] [address] Nov, [facility] [place] [facility] [address] [id number] [place] [address] Nov, [facility] [place] [facility] [address] [id number] [place] [address] 15 Nov, 2013 [facility] [place] [facility] [address] [id number] [place] [address] Nov, [facility] [place] [facility] [address] [id number] [place] [address] Nov, [facility] [place] [facility] [address] [id number] [place] [address] Nov, [facility] [place] [facility] [address] [id number] [place] [address] Nov, [facility] [place] [facility] [address] [id number] [place] [address] Nov, [facility] [place] [facility] [address] [id number] [place] [address] Nov, [facility] [place] [facility] [address] [id number] [place] [address] Nov, [facility] [place] [facility] [address] [id number] [place] [address] 22 Oct, 2013 [facility] [place] [facility] [address] [id number] [place] [address] 22 Oct, 2013 [facility] [place] [facility] [address] [id number] [place] [address] 19 Oct, 2013 [facility] [place] [facility] [address] [id number] [place] [address] 19 Oct, 2013 [facility] [place] [facility] [address] [id number] [place] [address] 17 Oct, 2013 [facility] [place] [facility] [address] [id number] [place] [address] 17 Oct, 2013 [facility] [place] [facility] [address] [id number] [place] [address] 16 Oct, 2013 [facility] [place] [facility] [address] [id number] [place] [address] 16 Oct, 2013 [facility] [place] [facility] [address] [id number] [place] [address] Oct, 2013 [facility] [place] [facility] [address] [id number] [place] [address] Oct, 2013 [facility] [place] [facility] [address] [id number] [place] [address] Sep, [facility] [place] [facility] [address] [id number] [place] [address] Sep, [facility] [place] [facility] [address] [id number] [place] [address] Sep, [facility] [place] [facility] [address] [id number] [place] [address] Sep, [facility] [place] [facility] [address] [id number] [place] [address] Sep, [facility] [place] [facility] [address] [id number] [place] [address] Sep, [facility] [place] [facility] [address] [id number] [place] [address] Sep, [facility] [place] [facility] [address] [id number] [place] [address] Sep, [facility] [place] [facility] [address] [id number] [place] [address] Sep, [facility] [place] [facility] [address] [id number] [place] [address] Sep, [facility] [place] [facility] [address] [id number] [place] [address] Sep, [facility] [place] [facility] [address] [id number] [place] [address] Sep, [facility] [place] [facility] [address] [id number] [place] [address] Sep, [facility] [place] [facility] [address] [id number] [place] [address] Sep, [facility] [place] [facility] [address] [id number] [place] [address] Aug, [facility] [place] [facility] [address] [id number] [place] [address] Aug, [facility] [place] [facility] [address] [id number] [place] [address] Aug, [facility] [place] [facility] [address] [id number] [place] [address] Aug, [facility] [place] [facility] [address] [id number] [place] [address] Aug, [facility] [place] [facility] [address] [id number] [place] [address] Aug, [facility] [place] [facility] [address] [id number] [place] [address] Aug, [facility] [place] [facility] [address] [id number] [place] [address] Aug, [facility] [place] [facility] [address] [id number] [place] [address] Aug, [facility] [place] [facility] [address] [id number] [place] [address] Aug, [facility] [place] [facility] [address] [id number] [place] [address] Aug, [facility] [place] [facility] [address] [id number] [place] [address] Jul, [facility] [place] [facility] [address] [id number] [place] [address] Jul, [facility] [place] [facility] [address] [id number] [place] [address] Jul, [facility] [place] [facility] [address] [id number] [place] [address] Jul, [facility] [place] [facility] [address] [id number] [place] [address] Jul, [facility] [place] [facility] [address] [id number] [place] [address] Jul, [facility] [place] [facility] [address] [id number] [place] [address] Jul, [facility] [place] [facility] [address] [id number] [place] [address] Jul, [facility] [place] [facility] [address] [id number] [place] [address] Jul, [facility] [place] [facility] [address] [id number] [place] [address] Jul, [facility] [place] [facility] [address] [id number] [place] [address] June, [facility] [place] [facility] [address] [id number] [place] [address] June, [facility] [place] [facility] [address] [id number] [place] [address] June, [facility] [address] [id number] [place] [address] June, [facility] [place] [facility] [address] [id number] [place] [address] June, [facility] [place] [facility] [address] [id number] [place] [address] June, [facility] [address] [id number] [place] [address] June, [facility] [place] [facility] [address] [id number] [place] [address] June, [facility] [address] [id number] [place] [address] June, [facility] [address] [id number] [place] [address] June, [facility] [address] [id number] [place] [address] June, [facility] [place] [facility] [address] [id number] [place] [address] June, [facility] [place] [facility] [address] [id number] [place] [address] June, [facility] [place] [facility] [address] [id number] [place] [address] June, [facility] [place] [facility] [address] [id number] [place] [address] June, [facility] [place] [facility] [address] [id number] [place] [address] June, [facility] [place] [facility] [address] [id number] [place] [address] June, [facility] [place] [facility] [address] [id number] [place] [address] May, [facility] [place] [facility] [address] [id number] [place] [address] May, [facility] [place] [facility] [address] [id number] [place] [address] May, [facility] [place] [facility] [address] [id number] [place] [address] May, [facility] [place] [facility] [address] [id number] [place] [address] May, [facility] [place] [facility] [address] [id number] [place] [address] May, [facility] [place] [facility] [address] [id number] [place] [address] May, [facility] [place] [facility] [address] [id number] [place] [address] May, [facility] [place] [facility] [address] [id number] [place] [address] May, [facility] [place] [facility] [address] [id number] [place] [address] May, [facility] [place] [facility] [address] [id number] [place] [address] Apr, [facility] [place] [facility] [address] [id number] [place] [address] Apr, [facility] [place] [facility] [address] [id number] [place] [address] Apr, [facility] [place] [facility] [address] [id number] [place] [address] Apr, [facility] [place] [facility] [address] [id number] [place] [address] Apr, [facility] [place] [facility] [address] [id number] [place] [address] Apr, [facility] [place] [facility] [address] [id number] [place] [address] 13 Apr, 2013 [facility] [place] [facility] [address] [id number] [place] [address] 13 Apr, 2013 [facility] [place] [facility] [address] [id number] [place] [address] 07 Apr, 2013 [facility] [place] [facility] [address] [id number] [place] [address] Apr, [facility] [place] [facility] [address] [id number] [place] [address] Mar, [facility] [place] [facility] [address] [id number] [place] [address] Mar, [facility] [place] [facility] [address] [facility] [id number] [place] [address] Mar, [facility] [place] [facility] [address] [id number] [place] [address] Mar, [facility] [place] [facility] [address] [id number] [place] [address] Mar, [facility] [place] [facility] [address] [facility] [id number] [place] [address] Mar, [facility] [place] [facility] [address] [facility] [id number] [place] [address] Mar, [facility] [place] [facility] [address] [facility] [id number] [place] [address] Mar, [facility] [place] [facility] [address] [facility] [id number] [place] [address] Mar, [facility] [place] [facility] [address] [id number] [place] [address] Mar, [facility] [place] [facility] [address] [facility] [id number] [place] [address] 07 Mar, 2013 [facility] [place] [facility] [address] [facility] [id number] [place] [address] Mar, [facility] [address] [id number] [place] [address] Mar, [facility] [place] [facility] [address] [id number] [place] [address] Feb, [facility] [place] [facility] [address] [id number] [place] [address] Feb, [facility] [place] [facility] [address] [id number] [place] [address] Feb, [facility] [place] [facility] [address] [id number] [place] [address] Feb, [facility] [place] [facility] [address] [id number] [place] [address] Feb, [facility] [place] [facility] [address] [id number] [place] [address] Feb, [facility] [place] [facility] [address] [id number] [place] [address] Feb, [facility] [place] [facility] [address] [id number] [place] [address] Feb, [facility] [place] [facility] [address] [id number] [place] [address] Feb, [facility] [place] [facility] [address] [id number] [place] [address] Feb, [facility] [place] [facility] [address] [id number] [place] [address] Jan, [facility] [place] [facility] [address] [id number] [place] [address] Jan, [facility] [place] [facility] [address] [id number] [place] [address] Jan, [facility] [place] [facility] [address] [id number] [place] [address] Jan, [facility] [place] [facility] [address] [id number] [place] [address] Jan, [facility] [address] [id number] [place] [address] Jan, [facility] [place] [facility] [address] [id number] [place] [address] Jan, [facility] [address] [id number] [place] [address] Jan, [facility] [place] [facility] [address] [id number] [place] [address] Jan, [facility] [address] [id number] [place] [address] Jan, [facility] [place] [facility] [address] [id number] [place] [address] Jan, [facility] [place] [facility] [address] [id number] [place] [address] Jan, [facility] [address] [id number] [place] [address] Jan, [facility] [place] [facility] [address] [id number] [place] [address] Jan, [facility] [place] [facility] [address] [id number] [place] [address] Jan, [facility] [place] [facility] [address] [id number] [place] [address] Jan, [facility] [place] [facility] [address] [id number] [place] [address] Dec, [facility] [place] [facility] [address] [id number] [place] [address] Dec, [facility] [place] [facility] [address] [id number] [place] [address] Dec, [facility] [place] [facility] [address] [id number] [place] [address] Dec, [facility] [place] [facility] [address] [id number] [place] [address] 15 Dec, 2012 [facility] [place] [facility] [address] [id number] [place] [address] 15 Dec, 2012 [facility] [place] [facility] [address] [id number] [place] [address] Dec, [facility] [place] [facility] [address] [id number] [place] [address] Dec, [facility] [place] [facility] [address] [id number] [place] [address] Dec, [facility] [place] [facility] [address] [id number] [place] [address] Dec, [facility] [place] [facility] [address] [id number] [place] [address] Nov, [facility] [place] [facility] [address] [id number] [place] [address] 30 Nov, 2012 [facility] [place] [facility] [address] [id number] [place] [address] Nov, [facility] [place] [facility] [address] [id number] [place] [address] Nov, [facility] [place] [facility] [address] [id number] [place] [address] 18 Nov, 2012 [facility] [place] [facility] [address] [id number] [place] [address] 18 Nov, 2012 [facility] [place] [facility] [address] [id number] [place] [address] 14 Nov, 2012 [facility] [place] [facility] [address] [id number] [place] [address] 14 Nov, 2012 [facility] [place] [facility] [address] [id number] [place] [address] 09 Nov, 2012 [facility] [place] [facility] [address] [id number] [place] [address] 09 Nov, 2012 [facility] [address] [id number] [place] [address] 07 Nov, 2012 [facility] [place] [facility] [address] [id number] [place] [address] 05 Nov, 2012 [facility] [place] [facility] [address] [id number] [place] [address] 20 Oct, 2012 [facility] [place] [facility] [address] [id number] [place] [address] 20 Oct, 2012 [facility] [place] [facility] [address] [id number] [place] [address] 19 Oct, 2012 [facility] [place] [facility] [address] [id number] [place] [address] 18 Oct, 2012 [facility] [address] [id number] [place] [address] 13 Oct, 2012 [facility] [place] [facility] [address] [id number] [place] [address] 05 Oct, 2012 [facility] [place] [facility] [address] [id number] [place] [address] 04 Oct, 2012 [facility] [place] [facility] [address] [id number] [place] [address] 28 Sep, 2012 [facility] [place] [facility] [address] [id number] [place] [address] Sep, [facility] [place] [facility] [address] [id number] [place] [address] Sep, [facility] [place] [facility] [address] [id number] [place] [address] Sep, [facility] [place] [facility] [address] [id number] [place] [address] Sep, [facility] [place] [facility] [address] [id number] [place] [address] 08 Sep, 2012 [facility] [place] [facility] [address] [id number] [place] [address] Sep, [facility] [place] [facility] [address] [id number] [place] [address] Aug, [facility] [place] [facility] [address] [id number] [place] [address] Aug, [facility] [place] [facility] [address] [id number] [place] [address] Aug, [facility] [place] [facility] [address] [id number] [place] [address] Aug, [facility] [place] [facility] [address] [id number] [place] [address] Aug, [facility] [place] [facility] [address] [id number] [place] [address] Aug, [facility] [place] [facility] [address] [id number] [place] [address] Aug, [facility] [place] [facility] [address] [id number] [place] [address] Aug, [facility] [place] [facility] [address] [id number] [place] [address] Aug, [facility] [place] [facility] [address] [id number] [place] [address] Jul, [facility] [place] [facility] [address] [id number] [place] [address] Jul, [facility] [place] [facility] [address] [id number] [place] [address] Jul, [facility] [place] [facility] [address] [id number] [place] [address] Jul, [facility] [place] [facility] [address] [id number] [place] [address] Jul, [facility] [place] [facility] [address] [id number] [place] [address] Jul, [facility] [address] [id number] [place] [address] Jul, [facility] [address] [id number] [place] [address] June, [facility] [address] [id number] [place] [address] June, [facility] [address] [id number] [place] [address] June, [facility] [address] [id number] [place] [address] June, [facility] [address] [id number] [place] [address] June, [facility] [address] [id number] [place] [address] June, [facility] [address] [id number] [place] [address] June, [facility] [address] [id number] [place] [address] June, [facility] [address] [id number] [place] [address] May, [facility] [address] [id number] [place] [address] May, [facility] [place] [facility] [address] [id number] [place] [address] 16 May, 2012 [facility] [place] [facility] [address] [id number] [place] [address] 15 May, 2012 [facility] [place] [facility] [address] [id number] [place] [address] 08 May, 2012 [facility] [place] [facility] [address] [id number] [place] [address] May, [facility] [place] [facility] [address] [id number] [place] [address] 04 May, 2012 [facility] [address] [id number] [place] [address] May, [facility] [address] [id number] [place] [address] May, [facility] [address] [id number] [place] [address] May, [facility] [address] [id number] [place] [address] Apr, [facility] [address] [id number] [place] [address] 19 Apr, 2012 [facility] [address] [id number] [place] [address] 18 Apr, 2012 [facility] [address] [id number] [place] [address] 15 Apr, 2012 [facility] [address] [id number] [place] [address] 13 Apr, 2012 [facility] [address] [id number] [place] [address] 05 Apr, 2012 [facility] [address] [facility] [id number] [place] [address] 04 Apr, 2012 [facility] [address] [id number] [place] [address] 28 Mar, 2012 [facility] [address] [id number] [place] [address] Mar, [facility] [address] [id number] [place] [address] Mar, [facility] [address] [id number] [place] [address] Mar, [facility] [address] [id number] [place] [address] Mar, [facility] [place] [facility] [address] [id number] [place] [address] 07 Mar, 2012 [facility] [place] [facility] [address] [id number] [place] [address] 06 Mar, 2012 [facility] [place] [facility] [address] [id number] [place] [address] 05 Mar, 2012 [facility] [place] [facility] [address] [id number] [place] [address] Mar, [facility] [place] [facility] [address] [id number] [place] [address] Feb, [facility] [place] [facility] [address] [id number] [place] [address] Feb, [facility] [place] [facility] [address] [id number] [place] [address] Feb, [facility] [place] [facility] [address] [id number] [place] [address] Feb, [facility] [place] [facility] [address] [id number] [place] [address] Feb, [facility] [place] [facility] [address] [id number] [place] [address] Feb, [facility] [place] [facility] [address] [id number] [place] [address] Feb, [facility] [place] [facility] [address] [id number] [place] [address] Jan, [facility] [place] [facility] [address] [id number] [place] [address] Jan, [facility] [place] [facility] [address] [id number] [place] [address] Jan, [facility] [place] [facility] [address] [id number] [place] [address] Jan, [facility] [place] [facility] [address] [id number] [place] [address] 27 Jan, 2012 [facility] [address] [id number] [place] [address] 27 Jan, 2012 [facility] [place] [facility] [address] [id number] [place] [address] 14 Jan, 2012 [facility] [address] [id number] [place] [address] Jan, [facility] [place] [facility] [address] [id number] [place] [address] 10 Jan, 2012 [facility] [address] [id number] [place] [address] Jan, [facility] [address] [id number] [place] [address] 04 Jan, 2012 [facility] [address] [id number] [place] [address] Jan, [facility] [address] [id number] [place] [address] Jan, [facility] [place] [facility] [address] [id number] [place] [address] Dec, [facility] [address] [id number] [place] [address] 29 Dec, 2011 [facility] [place] [facility] [address] [id number] [place] [address] Dec, [facility] [place] [facility] [address] [id number] [place] [address] Dec, [facility] [place] [facility] [address] [id number] [place] [address] Dec, [facility] [place] [facility] [address] [id number] [place] [address] Dec, [facility] [place] [facility] [address] [id number] [place] [address] Dec, [facility] [place] [facility] [address] [id number] [place] [address] Dec, [facility] [place] [facility] [address] [id number] [place] [address] Dec, [facility] [place] [facility] [address] [id number] [place] [address] Dec, [facility] [place] [facility] [address] [id number] [place] [address] Dec, [facility] [place] [facility] [address] [id number] [place] [address] Dec, [facility] [place] [facility] [address] [id number] [place] [address] Dec, [facility] [place] [facility] [address] [id number] [place] [address] Dec, [facility] [place] [facility] [address] [id number] [place] [address] Nov, [facility] [place] [facility] [address] [id number] [place] [address] Nov, [facility] [place] [facility] [address] [facility] [id number] [place] [address] Nov, [facility] [place] [facility] [address] [id number] [place] [address] Nov, [facility] [place] [facility] [address] [id number] [place] [address] Nov, [facility] [place] [facility] [address] [id number] [place] [address] Nov, [facility] [place] [facility] [address] [id number] [place] [address] Nov, [facility] [place] [facility] [address] [facility] [id number] [place] [address] Nov, [facility] [place] [facility] [address] [id number] [place] [address] Nov, [facility] [place] [facility] [address] [id number] [place] [address] Nov, [facility] [place] [facility] [address] [id number] [place] [address] Nov, [facility] [place] [facility] [address] [facility] [id number] [place] [address] Nov, [facility] [place] [facility] [address] [id number] [place] [address] Nov, [facility] [place] [facility] [address] [id number] [place] [address] 25 Oct, 2011 [facility] [place] [facility] [address] [id number] [place] [address] 25 Oct, 2011 [facility] [place] [facility] [address] [facility] [id number] [place] [address] 24 Oct, 2011 [facility] [place] [facility] [address] [id number] [place] [address] 17 Oct, 2011 [facility] [place] [facility] [address] [id number] [place] [address] 14 Oct, 2011 [facility] [place] [facility] [address] [facility] [id number] [place] [address] 11 Oct, 2011 [facility] [place] [facility] [address] [id number] [place] [address] 06 Oct, 2011 [facility] [place] [facility] [address] [id number] [place] [address] Sep, [facility] [place] [facility] [address] [id number] [place] [address] Sep, [facility] [place] [facility] [address] [facility] [id number] [place] [address] Sep, [facility] [place] [facility] [address] [facility] [id number] [place] [address] Sep, [facility] [place] [facility] [address] [facility] [id number] [place] [address] Aug, IMMUNIZATIONS No Known Immunizations SOCIAL HISTORY Never Assessed REASON FOR VISIT EMR-[facility] PLAN OF CARE VITAL SIGNS MEDICATIONS Unknown [...]
--- OUTSIDE RECORDS SUMMARY | 2018-07-22 18:57 | XMS REPORT ---
Author Author Migration, Doctor Organization [facility] Address Unknown Phone Unavailable Care Team Providers Care Mathematics Department Chair Name Role Phone Migration, Doctor Unavailable Unavailable PROBLEMS Type Condition ICD9-CM Code LMT68-ZL Code Onset Dates Condition Status SNOMED Code Problem Loss of weight 783.21 Active 197060269 Problem Unspecified arthropathy, site unspecified 716.90 Active 431239472 Problem Lumbago 724.2 Active 174985775 Problem Depressive disorder, not elsewhere classified 311 Active 52537843 Problem Other abnormal glucose 790.29 Active 129767028 Problem Anxiety state, unspecified 300.00 Active 377079073 Problem Chronic airway obstruction, not elsewhere classified 496 Active 66335666 Problem 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 480940983 Problem Unspecified essential hypertension 401.9 Active 04106581 Problem Migraine, unspecified without mention of intractable migraine without mention of status migrainosus 346.90 Active 35569716 ALLERGIES No Information ENCOUNTERS Encounter Location Date Diagnosis [facility] [address] [address] Mar, [facility] [address] [address] Feb, Arthropathy, unspecified M12.9 [facility] [id number] [place] [address] Feb, [facility] [id number] [place] [address] Jan, [facility] [address] [address] Jan, [facility] [address] [address] Jan, [facility] [address] [address] Oct, 2014 [facility] [place] [facility] [address] [id number] [place] [address] 10 Oct, 2014 Lumbago 724.2 [facility] [place] [facility] [address] [id number] [place] [address] Oct, 2014 [facility] [place] [facility] [address] [id number] [place] [address] 08 Oct, 2014 [facility] [place] [facility] [address] [id number] [place] [address] 08 Oct, 2014 [facility] [place] [facility] [address] [id number] [place] [address] Oct, 2014 [facility] [place] [facility] [address] [id number] [place] [address] Oct, 2014 [facility] [place] [facility] [address] [id number] [place] [address] Oct, 2014 [facility] [place] [facility] [address] [id number] [place] [address] Sep, 2014 [facility] [place] [facility] [address] [id number] [place] [address] Sep, 2014 [facility] [place] [facility] [address] [id number] [place] [address] Aug, 2014 [facility] [place] [facility] [address] [id number] [place] [address] Aug, 2014 [facility] [place] [facility] [address] [id number] [place] [address] Aug, 2014 [facility] [place] [facility] [address] [id number] [place] [address] Aug, 2014 [facility] [place] [facility] [address] [id number] [place] [address] Aug, 2014 [facility] [place] [facility] [address] [id number] [place] [address] Aug2014 [facility] [place] [facility] [address] [facility] [id number] [address] Jul, Unspecified arthropathy, site unspecified 716.90 [facility] [id number] [address] Jul, [facility] [id number] [address] Jul, [facility] [id number] [address] June, Acute bronchitis 466.0 ; Unspecified arthropathy, site unspecified 716.90 and Chronic pain disorder 338.4 [facility] [id number] [address] June, [facility] [id number] [address] June, [facility] [id number] [address] June, [facility] [id number] [address] June, [facility] [id number] [address] May, [facility] [address] [id number] [address] May, [facility] [address] [id number] [address] May, [facility] [address] [id number] [address] Apr, [facility] [id number] [address] Apr, [facility] [address] [id number] [address] Apr, [facility] [id number] [address] 12 Apr, 2014 [facility] [place] [facility] [address] [id number] [place] [address] Apr, 2014 [facility] [place] [facility] [address] [id number] [place] [address] 10 Apr, 2014 [facility] [place] [facility] [address] [facility] [id number] [place] [address] Apr, 2014 [facility] [place] [facility] [address] [id number] [place] [address] Apr, [facility] [place] [facility] [address] [id number] [place] [address] 24 Mar, 2014 [facility] [place] [facility] [address] [facility] [id number] [place] [address] 24 Mar, 2014 [facility] [place] [facility] [address] [facility] [id number] [place] [address] 17 Mar, 2014 [facility] [place] [facility] [address] [facility] [id number] [place] [address] 17 Mar, 2014 [facility] [place] [facility] [address] [facility] [id number] [place] [address] 17 Mar, 2014 [facility] [place] [facility] [address] [facility] [id number] [place] [address] 17 Mar, 2014 [facility] [place] [facility] [address] [facility] [id number] [place] [address] 13 Mar, 2014 [facility] [place] [facility] [address] [facility] [id number] [place] [address] 13 Mar, 2014 [facility] [place] [facility] [address] [facility] [id number] [place] [address] 13 Mar, 2014 [facility] [place] [facility] [address] [facility] [id number] [place] [address] 13 Mar, 2014 [facility] [place] [facility] [address] [facility] [id number] [place] [address] Mar, [facility] [place] [facility] [address] [id number] [place] [address] Mar, [facility] [place] [facility] [address] [id number] [place] [address] Mar, [facility] [place] [facility] [address] [id number] [place] [address] Mar, [facility] [place] [facility] [address] [id number] [place] [address] Mar, [facility] [place] [facility] [address] [id number] [place] [address] Feb, [facility] [place] [facility] [address] [id number] [place] [address] Feb, [facility] [place] [facility] [address] [id number] [place] [address] Feb, [facility] [place] [facility] [address] [id number] [place] [address] Feb, [facility] [place] [facility] [address] [id number] [place] [address] Feb, [facility] [place] [facility] [address] [id number] [place] [address] Feb, [facility] [place] [facility] [address] [id number] [place] [address] Feb, [facility] [place] [facility] [address] [id number] [address] Feb, [facility] [place] [facility] [address] [id number] [place] [address] Feb, [facility] [place] [facility] [address] [id number] [place] [address] Feb, [facility] [place] [facility] [address] [id number] [place] [address] Feb, [facility] [place] [facility] [address] [id number] [place] [address] Jan, [facility] [address] [id number] [place] [address] Jan, [facility] [address] [id number] [place] [address] 15 Jan, 2014 [facility] [address] [id number] [place] [address] 15 Jan, 2014 [facility] [address] [id number] [place] [address] 15 Jan, 2014 [facility] [address] [id number] [place] [address] Jan, [facility] [address] [id number] [place] [address] Jan, [facility] [address] [id number] [place] [address] Jan, [facility] [address] [id number] [place] [address] Jan, [facility] [address] [id number] [place] [address] Jan, [facility] [address] [id number] [place] [address] Jan, [facility] [place] [facility] [address] [id number] [place] [address] Jan, [facility] [place] [facility] [address] [id number] [place] [address] Jan, [facility] [place] [facility] [address] [id number] [place] [address] Jan, [facility] [place] [facility] [address] [id number] [place] [address] Jan, [facility] [place] [facility] [address] [id number] [place] [address] Dec, [facility] [place] [facility] [address] [id number] [place] [address] Dec, [facility] [place] [facility] [address] [id number] [place] [address] Dec, [facility] [place] [facility] [address] [id number] [place] [address] Dec, [facility] [place] [facility] [address] [id number] [place] [address] Dec, [facility] [place] [facility] [address] [id number] [place] [address] Dec, [facility] [place] [facility] [address] [id number] [place] [address] Dec, [facility] [place] [facility] [address] [id number] [place] [address] Dec, [facility] [place] [facility] [address] [id number] [place] [address] Dec, [facility] [place] [facility] [address] [id number] [place] [address] Dec, [facility] [place] [facility] [address] [id number] [place] [address] Dec, [facility] [place] [facility] [address] [id number] [place] [address] Dec, [facility] [place] [facility] [address] [id number], [place] [address] Dec, [facility] [place] [facility] [address] [id number] [place] [address] Dec, [facility] [place] [facility] [address] [id number] [place] [address] Dec, [facility] [place] [facility] [address] [id number], [place] [address] Dec, [facility] [place] [facility] [address] [id number], [place] [address] Dec, [facility] [place] [facility] [address] [id number] [place] [address] Dec, [facility] [place] [facility] [address] [id number] [place] [address] Dec, [facility] [place] [facility] [address] [id number] [place] [address] Dec, [facility] [place] [facility] [address] [id number] [place] [address] Nov, [facility] [place] [facility] [address] [id number] [place] [address] Nov, [facility] [place] [facility] [address] [id number] [place] [address] Nov, [facility] [place] [facility] [address] [id number] [place] [address] Nov, [facility] [place] [facility] [address] [id number] [place] [address] 15 Nov, 2013 [facility] [place] [facility] [address] [id number] [place] [address] Nov, [facility] [place] [facility] [address] [id number] [place] [address] Nov, [facility] [place] [facility] [address] [id number], [place] [address] Nov, [facility] [place] [facility] [address] [id number], [place] [address] Nov, [facility] [place] [facility] [address] [id number] [place] [address] Nov, [facility] [place] [facility] [address] [id number], [place] [address] Nov, [facility] [place] [facility] [address] [id number] [place] [address] Nov, [facility] [place] [facility] [address] [id number] [place] [address] 22 Oct, 2013 [facility] [place] [facility] [address] [id number] [place] [address] 22 Oct, 2013 [facility] [place] [facility] [address] [id number] [place] [address] 19 Oct, 2013 [facility] [place] [facility] [address] [id number] [place] [address] 19 Oct, 2013 [facility] [place] [facility] [address] [id number] [place] [address] 17 Oct, 2013 [facility] [place] [facility] [address] [id number] [place] [address] 17 Oct, 2013 [facility] [place] [facility] [address] [id number] [place] [address] 16 Oct, 2013 [facility] [place] [facility] [address] [id number] [place] [address] 16 Oct, 2013 [facility] [place] [facility] [address] [id number] [place] [address] Oct, 2013 [facility] [place] [facility] [address] [id number] [place] [address] Oct, 2013 [facility] [place] [facility] [address] [id number] [place] [address] Sep, [facility] [place] [facility] [address] [id number] [place] [address] Sep, [facility] [place] [facility] [address] [id number] [place] [address] Sep, [facility] [place] [facility] [address] [id number] [place] [address] Sep, [facility] [place] [facility] [address] [id number] [place] [address] Sep, [facility] [place] [facility] [address] [id number] [place] [address] Sep, [facility] [place] [facility] [address] [id number] [place] [address] Sep, [facility] [place] [facility] [address] [id number] [place] [address] Sep, [facility] [place] [facility] [address] [id number] [place] [address] Sep, [facility] [place] [facility] [address] [id number] [place] [address] Sep, [facility] [place] [facility] [address] [id number] [place] [address] Sep, [facility] [place] [facility] [address] [id number] [place] [address] Sep, [facility] [place] [facility] [address] [id number] [place] [address] Sep, [facility] [place] [facility] [address] [id number] [place] [address] Sep, [facility] [place] [facility] [address] [id number] [place] [address] Aug, [facility] [place] [facility] [address] [id number] [place] [address] Aug, [facility] [place] [facility] [address] [id number] [place] [address] Aug, [facility] [place] [facility] [address] [id number] [place] [address] Aug, [facility] [place] [facility] [address] [id number] [place] [address] Aug, [facility] [place] [facility] [address] [id number] [place] [address] Aug, [facility] [place] [facility] [address] [id number] [place] [address] Aug, [facility] [place] [facility] [address] [id number] [place] [address] Aug, [facility] [place] [facility] [address] [id number] [place] [address] Aug, [facility] [place] [facility] [address] [id number] [place] [address] Aug, [facility] [place] [facility] [address] [id number] [place] [address] Aug, [facility] [place] [facility] [address] [id number] [place] [address] Jul, [facility] [place] [facility] [address] [id number] [place] [address] Jul, [facility] [place] [facility] [address] [id number] [place] [address] Jul, [facility] [place] [facility] [address] [id number] [place] [address] Jul, [facility] [place] [facility] [address] [id number] [place] [address] Jul, [facility] [place] [facility] [address] [id number] [place] [address] Jul, [facility] [place] [facility] [address] [id number] [place] [address] Jul, [facility] [place] [facility] [address] [id number] [place] [address] Jul, [facility] [place] [facility] [address] [id number] [place] [address] Jul, [facility] [place] [facility] [address] [id number] [place] [address] Jul, [facility] [place] [facility] [address] [id number] [place] [address] June, [facility] [place] [facility] [address] [id number] [place] [address] June, [facility] [place] [facility] [address] [id number] [place] [address] June, [facility] [address] [id number] [place] [address] June, [facility] [place] [facility] [address] [id number] [place] [address] June, [facility] [place] [facility] [address] [id number] [place] [address] June, [facility] [address] [id number] [place] [address] June, [facility] [place] [facility] [address] [id number] [place] [address] June, [facility] [address] [id number] [place] [address] June, [facility] [address] [id number] [place] [address] June, [facility] [address] [id number] [place] [address] June, [facility] [place] [facility] [address] [id number] [place] [address] June, [facility] [place] [facility] [address] [id number] [place] [address] June, [facility] [place] [facility] [address] [id number] [place] [address] June, [facility] [place] [facility] [address] [id number] [place] [address] June[facility] [place] [facility] [address] [id number] [place] [address] June, [facility] [place] [facility] [address] [id number] [place] [address] June, [facility] [place] [facility] [address] [id number] [place] [address] May, [facility] [place] [facility] [address] [id number] [place] [address] May, [facility] [place] [facility] [address] [id number] [place] [address] May, [facility] [place] [facility] [address] [id number] [place] [address] May, [facility] [place] [facility] [address] [id number] [place] [address] May, [facility] [place] [facility] [address] [id number] [place] [address] May, [facility] [place] [facility] [address] [id number] [place] [address] May, [facility] [place] [facility] [address] [id number] [place] [address] May, [facility] [place] [facility] [address] [id number] [place] [address] May, [facility] [place] [facility] [address] [id number] [place] [address] May, [facility] [place] [facility] [address] [id number] [place] [address] Apr, [facility] [place] [facility] [address] [id number] [place] [address] Apr, [facility] [place] [facility] [address] [id number] [place] [address] Apr, [facility] [place] [facility] [address] [id number] [place] [address] Apr, [facility] [place] [facility] [address] [id number] [place] [address] Apr, [facility] [place] [facility] [address] [id number] [place] [address] Apr, [facility] [place] [facility] [address] [id number] [place] [address] 13 Apr, 2013 [facility] [place] [facility] [address] [id number] [place] [address] 13 Apr, 2013 [facility] [place] [facility] [address] [id number] [place] [address] 07 Apr, 2013 [facility] [place] [facility] [address] [id number] [place] [address] Apr, [facility] [place] [facility] [address] [id number] [place] [address] Mar, [facility] [place] [facility] [address] [id number] [place] [address] Mar, [facility] [place] [facility] [address] [facility] [id number] [place] [address] Mar, [facility] [place] [facility] [address] [id number] [place] [address] Mar, [facility] [place] [facility] [address] [id number] [place] [address] Mar, [facility] [place] [facility] [address] [facility] [id number] [place] [address] Mar, [facility] [place] [facility] [address] [facility] [id number] [place] [address] Mar, [facility] [place] [facility] [address] [facility] [id number] [place] [address] Mar, [facility] [place] [facility] [address] [facility] [id number] [place] [address] Mar, [facility] [place] [facility] [address] [id number] [place] [address] Mar, [facility] [place] [facility] [address] [facility] [id number] [place] [address] 07 Mar, 2013 [facility] [place] [facility] [address] [facility] [id number] [place] [address] Mar, [facility] [address] [id number] [place] [address] Mar, [facility] [place] [facility] [address] [id number] [place] [address] Feb, [facility] [place] [facility] [address] [id number] [place] [address] Feb, [facility] [place] [facility] [address] [id number] [place] [address] Feb, [facility] [place] [facility] [address] [id number] [place] [address] Feb, [facility] [place] [facility] [address] [id number] [place] [address] Feb, [facility] [place] [facility] [address] [id number] [place] [address] Feb, [facility] [place] [facility] [address] [id number] [place] [address] Feb, [facility] [place] [facility] [address] [id number] [place] [address] Feb, [facility] [place] [facility] [address] [id number] [place] [address] Feb, [facility] [place] [facility] [address] [id number] [place] [address] Feb, [facility] [place] [facility] [address] [id number] [place] [address] Jan, [facility] [place] [facility] [address] [id number] [place] [address] Jan, [facility] [place] [facility] [address] [id number] [place] [address] Jan, [facility] [place] [facility] [address] [id number] [place] [address] Jan, [facility] [place] [facility] [address] [id number] [place] [address] Jan, [facility] [address] [id number] [place] [address] Jan, [facility] [place] [facility] [address] [id number] [place] [address] Jan, [facility] [address] [id number] [place] [address] Jan, [facility] [place] [facility] [address] [id number] [place] [address] Jan, [facility] [address] [id number] [place] [address] Jan, [facility] [place] [facility] [address] [id number] [place] [address] Jan, [facility] [place] [facility] [address] [id number] [place] [address] Jan, [facility] [place] [address] [id number] [place] [address] Jan, [facility] [place] [facility] [address] [id number] [place] [address] Jan, [facility] [place] [facility] [address] [id number] [place] [address] Jan, [facility] [place] [facility] [address] [id number] [place] [address] Jan, [facility] [place] [facility] [address] [id number] [place] [address] Dec, [facility] [place] [facility] [address] [address] [id number] [place] [address] Dec, [facility] [place] [facility] [address] [id number] [place] [address] Dec, [facility] [place] [facility] [address] [id number] [place] [address] Dec, [facility] [place] [facility] [address] [id number] [place] [address] 15 Dec, 2012 [facility] [place] [facility] [address] [id number] [place] [address] 15 Dec, 2012 [facility] [place] [facility] [address] [id number] [place] [address] Dec, [facility] [place] [facility] [address] [id number] [place] [address] Dec, [facility] [place] [facility] [address] [id number] [place] [address] Dec, [facility] [place] [facility] [address] [id number] [place] [address] Dec, [facility] [place] [facility] [address] [id number] [place] [address] Nov, [facility] [place] [facility] [address] [id number], [place] [address] 30 Nov, 2012 [facility] [place] [facility] [address] [id number] [place] [address] Nov, [facility] [place] [facility] [address] [id number], [place] [address] Nov, [facility] [place] [facility] [address] [id number][place] [address] 18 Nov, 2012 [facility] [place] [facility] [address] [id number], [place] [address] 18 Nov, 2012 [facility] [place] [facility] [address] [id number] [place] [address] 14 Nov, 2012 [facility] [place] [facility] [address] [id number][place] [address] 14 Nov, 2012 [facility] [place] [facility] [address] [id number], [place] [address] 09 Nov, 2012 [facility] [place] [facility] [address] [id number] [place] [address] 09 Nov, 2012 [facility] [address] [id number] [place] [address] 07 Nov, 2012 [facility] [place] [facility] [address] [id number] [place] [address] 05 Nov, 2012 [facility] [place] [facility] [address] [id number] [place] [address] 20 Oct, 2012 [facility] [place] [facility] [address] [id number] [place] [address] 20 Oct, 2012 [facility] [place] [facility] [address] [id number] [place] [address] 19 Oct, 2012 [facility] [place] [facility] [address] [id number] [place] [address] 18 Oct, 2012 [facility] [address] [id number] [place] [address] 13 Oct, 2012 [facility] [place] [facility] [address] [id number] [place] [address] 05 Oct, 2012 [facility] [place] [facility] [address] [id number] [place] [address] 04 Oct, 2012 [facility] [place] [facility] [address] [id number] [place] [address] 28 Sep, 2012 [facility] [place] [facility] [address] [id number] [place] [address] Sep, [facility] [place] [facility] [address] [id number] [place] [address] Sep, [facility] [place] [facility] [address] [id number] [place] [address] Sep, [facility] [place] [facility] [address] [id number] [place] [address] Sep, [facility] [place] [facility] [address] [id number] [place] [address] 08 Sep, 2012 [facility] [place] [facility] [address] [id number] [place] [address] Sep, [facility] [place] [facility] [address] [id number] [place] [address] Aug, [facility] [place] [facility] [address] [id number] [place] [address] Aug, [facility] [place] [facility] [address] [id number] [place] [address] Aug, [facility] [place] [facility] [address] [id number] [place] [address] Aug, [facility] [place] [facility] [address] [id number] [place] [address] Aug, [facility] [place] [facility] [address] [id number] [place] [address] Aug, [facility] [place] [facility] [address] [id number] [place] [address] Aug, [facility] [place] [facility] [address] [id number] [place] [address] Aug, [facility] [place] [facility] [address] [id number] [place] [address] Aug, [facility] [place] [facility] [address] [id number] [place] [address] Jul, [facility] [place] [facility] [address] [id number] [place] [address] Jul, [facility] [place] [facility] [address] [id number] [place] [address] Jul, [facility] [place] [facility] [address] [id number] [place] [address] Jul, [facility] [place] [facility] [address] [id number] [place] [address] Jul, [facility] [place] [facility] [address] [id number] [place] [address] Jul, [facility] [address] [id number] [place] [address] Jul, [facility] [address] [id number] [place] [address] June, [facility] [address] [id number] [place] [address] June, [facility] [address] [id number] [place] [address] June, [facility] [address] [id number] [place] [address] June, [facility] [address] [id number] [place] [address] June, [facility] [address] [id number] [place] [address] June, [facility] [address] [id number] [place] [address] June, [facility] [address] [id number] [place] [address] June, [facility] [address] [id number] [place] [address] May, [facility] [address] [id number] [place] [address] May, [facility] [place] [facility] [address] [id number] [place] [address] 16 May, 2012 [facility] [place] [facility] [address] [id number] [place] [address] 15 May, 2012 [facility] [place] [facility] [address] [id number] [place] [address] 08 May, 2012 [facility] [place] [facility] [address] [id number] [place] [address] May, [facility] [place] [facility] [address] [id number] [place] [address] 04 May, 2012 [facility] [address] [id number] [place] [address] May, [facility] [address] [id number] [place] [address] May, [facility] [address] [id number] [place] [address] May, [facility] [address] [id number] [place] [address] Apr, [facility] [address] [id number] [place] [address] 19 Apr, 2012 [facility] [address] [id number] [place] [address] 18 Apr, 2012 [facility] [address] [id number] [place] [address] 15 Apr, 2012 [facility] [address] [id number] [place] [address] 13 Apr, 2012 [facility] [address] [id number] [place] [address] 05 Apr, 2012 [facility] [address] [facility] [id number] [place] [address] 04 Apr, 2012 [facility] [address] [id number] [place] [address] 28 Mar, 2012 [facility] [address] [id number] [place] [address] Mar, [facility] [address] [id number] [place] [address] Mar, [facility] [address] [id number] [place] [address] Mar, [facility] [address] [id number] [place] [address] Mar, [facility] [place] [facility] [address] [id number] [place] [address] 07 Mar, 2012 [facility] [place] [facility] [address] [id number] [place] [address] 06 Mar, 2012 [facility] [place] [facility] [address] [id number] [place] [address] 05 Mar, 2012 [facility] [place] [facility] [address] [id number] [place] [address] Mar, [facility] [place] [facility] [address] [id number] [place] [address] Feb, [facility] [place] [facility] [address] [id number] [place] [address] Feb, [facility] [place] [facility] [address] [id number] [place] [address] Feb, [facility] [place] [facility] [address] [id number] [place] [address] Feb, [facility] [place] [facility] [address] [id number] [place] [address] Feb, [facility] [place] [facility] [address] [id number] [place] [address] Feb, [facility] [place] [facility] [address] [id number] [place] [address] Feb, [facility] [place] [facility] [address] [id number] [place] [address] Jan, [facility] [place] [facility] [address] [id number] [place] [address] Jan, [facility] [place] [facility] [address] [id number] [place] [address] Jan, [facility] [place] [facility] [address] [id number] [place] [address] Jan, [facility] [place] [facility] [address] [id number] [place] [address] 27 Jan, 2012 [facility] [address] [id number] [place] [address] 27 Jan, 2012 [facility] [place] [facility] [address] [id number] [place] [address] 14 Jan, 2012 [facility] [address] [id number] [place] [address] Jan, [facility] [place] [facility] [address] [id number] [place] [address] 10 Jan, 2012 [facility] [address] [id number] [place] [address] Jan, [facility] [address] [id number] [place] [address] 04 Jan, 2012 [facility] [address] [id number] [place] [address] Jan, [facility] [address] [id number] [place] [address] Jan, [facility] [place] [facility] [address] [id number] [place] [address] Dec, [facility] [address] [id number] [place] [address] 29 Dec, 2011 [facility] [place] [facility] [address] [id number] [place] [address] Dec, [facility] [place] [facility] [address] [id number] [place] [address] Dec, [facility] [place] [facility] [address] [id number] [place] [address] Dec, [facility] [place] [facility] [address] [id number] [place] [address] Dec, [facility] [place] [facility] [address] [id number] [place] [address] Dec, [facility] [place] [facility] [address] [id number] [place] [address] Dec, [facility] [place] [facility] [address] [id number] [place] [address] Dec, [facility] [place] [facility] [address] [id number] [place] [address] Dec, [facility] [place] [facility] [address] [id number] [place] [address] Dec, [facility] [place] [facility] [address] [id number] [place] [address] Dec, [facility] [place] [facility] [address] [id number] [place] [address] Dec, [facility] [place] [facility] [address] [id number] [place] [address] Dec, [facility] [place] [facility] [address] [id number] [address] Nov, [facility] [place] [facility] [address] [id number] [place] [address] Nov, [facility] [place] [facility] [address] [facility] [id number], [place] [address] Nov, [facility] [place] [facility] [address] [id number], [place] [address] Nov, [facility] [place] [facility] [address] [id number], [place] [address] Nov, [facility] [place] [facility] [address] [id number], [place] [address] Nov, [facility] [place] [facility] [address] [id number], [place] [address] Nov, [facility] [place] [facility] [address] [facility] [id number], [place] [address] Nov, [facility] [place] [facility] [address] [id number], [place] [address] Nov, [facility] [place] [facility] [address] [id number] [place] [address] Nov, [facility] [place] [facility] [address] [id number] [place] [address] Nov, [facility] [place] [facility] [address] [facility] [id number] [place] [address] Nov, [facility] [place] [facility] [address] [id number] [place] [address] Nov, [facility] [place] [facility] [address] [id number] [place] [address] 25 Oct, 2011 [facility] [place] [facility] [address] [id number] [place] [address] 25 Oct, 2011 [facility] [place] [facility] [address] [facility] [id number] [place] [address] 24 Oct, 2011 [facility] [place] [facility] [address] [id number] [place] [address] 17 Oct, 2011 [facility] [place] [facility] [address] [id number] [place] [address] 14 Oct, 2011 [facility] [place] [facility] [address] [facility] [id number] [place] [address] 11 Oct, 2011 [facility] [place] [facility] [address] [id number] [place] [address] 06 Oct, 2011 [facility] [place] [facility] [address] [id number], [place] [address] Sep, [facility] [place] [facility] [address] [id number] [place] [address] Sep, [facility] [place] [facility] [address] [facility] [id number], [place] [address] Sep, [facility] [place] [facility] [address] [facility] [id number] [place] [address] Sep, [facility] [place] [facility] [address] [facility] [id number] [place] [address] Aug, IMMUNIZATIONS No Known Immunizations SOCIAL HISTORY Never Assessed REASON FOR VISIT EMR-[facility] PLAN OF CARE VITAL SIGNS MEDICATIONS Unknown [...]
--- OUTSIDE RECORDS SUMMARY | 2018-07-22 18:58 | XMS REPORT ---
Author Author Migration, Doctor Organization [facility] Address Unknown Phone Unavailable Care Team Providers Care Claim Service Representative Name Role Phone Migration, Doctor Unavailable Unavailable PROBLEMS Type Condition ICD9-CM Code [id number] Code Onset Dates Condition Status SNOMED Code Problem Loss of weight 783.21 Active 864180579 Problem Unspecified arthropathy, site unspecified 716.90 Active 360937348 Problem Lumbago 724.2 Active 648682668 Problem Depressive disorder, not elsewhere classified 311 Active 02649523 Problem Other abnormal glucose 790.29 Active 795781701 Problem Anxiety state, unspecified 300.00 Active 138778694 Problem Chronic airway obstruction, not elsewhere classified 496 Active 38613565 Problem 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 532566569 Problem Unspecified essential hypertension 401.9 Active 63657537 Problem Migraine, unspecified without mention of intractable migraine without mention of status migrainosus 346.90 Active [id number] ALLERGIES No Information ENCOUNTERS Encounter Location Date Diagnosis [facility] [address] [address] Mar, [facility] [address] [address] Feb, Arthropathy, unspecified M12.9 [facility] [id number] [place] [address] Feb, [facility] [id number] [place] [address] Jan, [facility] [address] [address] Jan, [facility] [address] [address] Jan, [facility] [address] [address] Oct, 2014 [facility] [place] [facility] [address] [id number] [place] [address] 10 Oct, 2014 Lumbago 724.2 [facility] [place] [facility] [address] [id number] [place] [address] Oct, 2014 [facility] [place] [facility] [address] [id number] [place] [address] 08 Oct, 2014 [facility] [place] [facility] [address] [id number] [place] [address] 08 Oct, 2014 [facility] [place] [facility] [address] [id number] [place] [address] Oct, 2014 [facility] [place] [facility] [address] [id number] [place] [address] Oct, 2014 [facility] [place] [facility] [address] [id number] [place] [address] Oct, 2014 [facility] [place] [facility] [address] [id number] [place] [address] Sep, 2014 [facility] [place] [facility] [address] [id number] [place] [address] Sep, 2014 [facility] [place] [facility] [address] [id number] [place] [address] Aug, 2014 [facility] [place] [facility] [address] [id number] [place] [address] Aug, 2014 [facility] [place] [facility] [address] [id number] [place] [address] Aug, 2014 [facility] [place] [facility] [address] [id number] [place] [address] Aug, 2014 [facility] [place] [facility] [address] [id number] [place] [address] Aug, 2014 [facility] [place] [facility] [address] [id number] [place] [address] Aug2014 [facility] [place] [facility] [address] [facility] [id number] [address] Jul, Unspecified arthropathy, site unspecified 716.90 [facility] [address] [address] Jul, [facility] [address] [address] Jul, [facility] [address] [address] June, Acute bronchitis 466.0 ; Unspecified arthropathy, site unspecified 716.90 and Chronic pain disorder 338.4 [facility] [address] [address] June, [facility] [address] [address] June, [facility] [address] [address] June, [facility] [address] [address] June, [facility] [address] [address] May, [facility] [id number] [address] May, [facility] [id number] [address] May, [facility] [id number] [address] Apr, [facility] [address] [address] Apr, [facility] [address] [id number] [address] Apr, [facility] [address] [address] 12 Apr, 2014 [facility] [place] [facility] [address] [id number] [place] [address] Apr, 2014 [facility] [place] [facility] [address] [id number] [place] [address] 10 Apr, 2014 [facility] [place] [facility] [address] [facility] [id number] [place] [address] Apr, 2014 [facility] [place] [facility] [address] [id number] [place] [address] Apr, [facility] [place] [facility] [address] [id number] [place] [address] 24 Mar, 2014 [facility] [place] [facility] [address] [facility] [id number] [place] [address] 24 Mar, 2014 [facility] [place] [facility] [address] [facility] [id number] [place] [address] 17 Mar, 2014 [facility] [place] [facility] [address] [facility] [id number] [place] [address] 17 Mar, 2014 [facility] [place] [facility] [address] [facility] [id number] [place] [address] 17 Mar, 2014 [facility] [place] [facility] [address] [facility] [id number] [place] [address] 17 Mar, 2014 [facility] [place] [facility] [address] [facility] [id number] [place] [address] 13 Mar, 2014 [facility] [place] [facility] [address] [facility] [id number] [place] [address] 13 Mar, 2014 [facility] [place] [facility] [address] [facility] [id number] [place] [address] 13 Mar, 2014 [facility] [place] [facility] [address] [facility] [id number] [place] [address] 13 Mar, 2014 [facility] [place] [facility] [address] [facility] [id number] [place] [address] Mar, [facility] [place] [facility] [address] [id number] [place] [address] Mar, [facility] [place] [facility] [address] [id number] [place] [address] Mar, [facility] [place] [facility] [address] [id number] [place] [address] Mar, [facility] [place] [facility] [address] [id number] [place] [address] Mar, [facility] [place] [facility] [address] [id number] [place] [address] Feb, [facility] [place] [facility] [address] [id number] [place] [address] Feb, [facility] [place] [facility] [address] [id number] [place] [address] Feb, [facility] [place] [facility] [address] [id number] [place] [address] Feb, [facility] [place] [facility] [address] [id number] [place] [address] Feb, [facility] [place] [facility] [address] [id number] [place] [address] Feb, [facility] [place] [facility] [address] [id number] [place] [address] Feb, [facility] [place] [facility] [address] [id number] [place] [address] Feb, [facility] [place] [facility] [address] [id number] [place] [address] Feb, [facility] [place] [facility] [address] [id number] [place] [address] Feb, [facility] [place] [facility] [address] [id number] [place] [address] Feb, [facility] [place] [facility] [address] [id number] [place] [address] Jan, [facility] [address] [id number] [place] [address] Jan, [facility] [address] [id number] [place] [address] 15 Jan, 2014 [facility] [address] [id number] [place] [address] 15 Jan, 2014 [facility] [address] [id number] [place] [address] 15 Jan, 2014 [facility] [address] [id number] [place] [address] Jan, [facility] [address] [id number] [place] [address] Jan, [facility] [address] [id number] [place] [address] Jan, [facility] [address] [id number] [place] [address] Jan, [facility] [address] [id number] [place] [address] Jan, [facility] [address] [id number] [place] [address] Jan, [facility] [place] [facility] [address] [id number] [place] [address] Jan, [facility] [place] [facility] [address] [id number] [place] [address] Jan, [facility] [place] [facility] [address] [id number] [place] [address] Jan, [facility] [place] [facility] [address] [id number] [place] [address] Jan, [facility] [place] [facility] [address] [id number] [place] [address] Dec, [facility] [place] [facility] [address] [id number] [place] [address] Dec, [facility] [place] [facility] [address] [id number] [place] [address] Dec, [facility] [place] [facility] [address] [id number] [place] [address] Dec, [facility] [place] [facility] [address] [id number] [place] [address] Dec, [facility] [place] [facility] [address] [id number] [place] [address] Dec, [facility] [place] [facility] [address] [id number] [place] [address] Dec, [facility] [place] [facility] [address] [id number] [place] [address] Dec, [facility] [place] [facility] [address] [id number] [place] [address] Dec, [facility] [place] [facility] [address] [id number] [place] [address] Dec, [facility] [place] [facility] [address] [id number] [place] [address] Dec, [facility] [place] [facility] [address] [id number] [place] [address] Dec, [facility] [place] [facility] [address] [id number] [address] Dec, [facility] [place] [facility] [address] [id number] [place] [address] Dec, [facility] [place] [facility] [address] [id number] [place] [address] Dec, [facility] [place] [facility] [address] [id number] [place] [address] Dec, [facility] [place] [facility] [address] [id number] [place] [address] Dec, [facility] [place] [facility] [address] [id number] [place] [address] Dec, [facility] [place] [facility] [address] [id number] [place] [address] Dec, [facility] [place] [facility] [address] [id number] [place] [address] Dec, [facility] [place] [facility] [address] [id number] [place] [address] Nov, [facility] [place] [facility] [address] [id number] [place] [address] Nov, [facility] [place] [facility] [address] [id number] [place] [address] Nov, [facility] [place] [facility] [address] [id number] [place] [address] Nov, [facility] [place] [facility] [address] [id number] [place] [address] 15 Nov, 2013 [facility] [place] [facility] [address] [id number] [place] [address] Nov, [facility] [place] [facility] [address] [id number] [place] [address] Nov, [facility] [place] [facility] [address] [id number] [place] [address] Nov, [facility] [place] [facility] [address] [id number] [place] [address] Nov, [facility] [place] [facility] [address] [id number] [place] [address] Nov, [facility] [place] [facility] [address] [id number] [place] [address] Nov, [facility] [place] [facility] [address] [id number] [place] [address] Nov, [facility] [place] [facility] [address] [id number] [place] [address] 22 Oct, 2013 [facility] [place] [facility] [address] [id number] [place] [address] 22 Oct, 2013 [facility] [place] [facility] [address] [id number] [place] [address] 19 Oct, 2013 [facility] [place] [facility] [address] [id number] [place] [address] 19 Oct, 2013 [facility] [place] [facility] [address] [id number] [place] [address] 17 Oct, 2013 [facility] [place] [facility] [address] [id number] [place] [address] 17 Oct, 2013 [facility] [place] [facility] [address] [id number] [place] [address] 16 Oct, 2013 [facility] [place] [facility] [address] [id number] [place] [address] 16 Oct, 2013 [facility] [place] [facility] [address] [id number] [place] [address] Oct, 2013 [facility] [place] [facility] [address] [id number] [place] [address] Oct, 2013 [facility] [place] [facility] [address] [id number] [place] [address] Sep, [facility] [place] [facility] [address] [id number] [place] [address] Sep, [facility] [place] [facility] [address] [id number] [place] [address] Sep, [facility] [place] [facility] [address] [id number] [place] [address] Sep, [facility] [place] [facility] [address] [id number] [place] [address] Sep, [facility] [place] [facility] [address] [id number] [place] [address] Sep, [facility] [place] [facility] [address] [id number] [place] [address] Sep, [facility] [place] [facility] [address] [id number] [place] [address] Sep, [facility] [place] [facility] [address] [id number] [place] [address] Sep, [facility] [place] [facility] [address] [id number] [place] [address] Sep, [facility] [place] [facility] [address] [id number] [place] [address] Sep, [facility] [place] [facility] [address] [id number] [place] [address] Sep, [facility] [place] [facility] [address] [id number] [place] [address] Sep, [facility] [place] [facility] [address] [id number] [place] [address] Sep, [facility] [place] [facility] [address] [id number] [place] [address] Aug, [facility] [place] [facility] [address] [id number] [place] [address] Aug, [facility] [place] [facility] [address] [id number] [place] [address] Aug, [facility] [place] [facility] [address] [id number] [place] [address] Aug, [facility] [place] [facility] [address] [id number] [place] [address] Aug, [facility] [place] [facility] [address] [id number] [place] [address] Aug, [facility] [place] [facility] [address] [id number] [place] [address] Aug, [facility] [place] [facility] [address] [id number] [place] [address] Aug, [facility] [place] [facility] [address] [id number] [place] [address] Aug, [facility] [place] [facility] [address] [id number] [place] [address] Aug, [facility] [place] [facility] [address] [id number] [place] [address] Aug, [facility] [place] [facility] [address] [id number] [place] [address] Jul, [facility] [place] [facility] [address] [id number] [place] [address] Jul, [facility] [place] [facility] [address] [id number] [place] [address] Jul, [facility] [place] [facility] [address] [id number] [place] [address] Jul, [facility] [place] [facility] [address] [id number] [place] [address] Jul, [facility] [place] [facility] [address] [id number] [place] [address] Jul, [facility] [place] [facility] [address] [id number] [place] [address] Jul, [facility] [place] [facility] [address] [id number] [place] [address] Jul, [facility] [place] [facility] [address] [id number] [place] [address] Jul, [facility] [place] [facility] [address] [id number] [place] [address] Jul, [facility] [place] [facility] [address] [id number] [place] [address] June, [facility] [place] [facility] [address] [id number] [place] [address] June, [facility] [place] [facility] [address] [id number] [place] [address] June, [facility] [address] [id number] [place] [address] June, [facility] [place] [facility] [address] [id number] [place] [address] June, [facility] [place] [facility] [address] [id number] [place] [address] June, [facility] [address] [id number] [place] [address] June, [facility] [place] [facility] [address] [id number] [place] [address] June, [facility] [address] [id number] [place] [address] June, [facility] [address] [id number] [place] [address] June, [facility] [address] [id number] [place] [address] June, [facility] [place] [facility] [address] [id number] [place] [address] June, [facility] [place] [facility] [address] [id number] [place] [address] June, [facility] [place] [facility] [address] [id number] [place] [address] June, [facility] [place] [facility] [address] [id number] [place] [address] June, [facility] [place] [facility] [address] [id number] [place] [address] June, [facility] [place] [facility] [address] [id number] [place] [address] June, [facility] [place] [facility] [address] [id number] [place] [address] May, [facility] [place] [facility] [address] [id number] [place] [address] May, [facility] [place] [facility] [address] [id number] [place] [address] May, [facility] [place] [facility] [address] [id number] [place] [address] May, [facility] [place] [facility] [address] [id number] [place] [address] May, [facility] [place] [facility] [address] [id number] [place] [address] May, [facility] [place] [facility] [address] [id number] [place] [address] May, [facility] [place] [facility] [address] [id number] [place] [address] May, [facility] [place] [facility] [address] [id number] [place] [address] May, [facility] [place] [facility] [address] [id number] [place] [address] May, [facility] [place] [facility] [address] [id number] [place] [address] Apr, [facility] [place] [facility] [address] [id number] [place] [address] Apr, [facility] [place] [facility] [address] [id number] [place] [address] Apr, [facility] [place] [facility] [address] [id number] [place] [address] Apr, [facility] [place] [facility] [address] [id number] [place] [address] Apr, [facility] [place] [facility] [address] [id number] [place] [address] Apr, [facility] [place] [facility] [address] [id number] [place] [address] 13 Apr, 2013 [facility] [place] [facility] [address] [id number] [place] [address] 13 Apr, 2013 [facility] [place] [facility] [address] [id number] [place] [address] 07 Apr, 2013 [facility] [place] [facility] [address] [id number] [place] [address] Apr, [facility] [place] [facility] [address] [id number] [place] [address] Mar, [facility] [place] [facility] [address] [id number] [place] [address] Mar, [facility] [place] [facility] [address] [facility] [id number] [place] [address] Mar, [facility] [place] [facility] [address] [id number] [place] [address] Mar, [facility] [place] [facility] [address] [id number] [place] [address] Mar, [facility] [place] [facility] [address] [facility] [id number] [place] [address] Mar, [facility] [place] [facility] [address] [facility] [id number] [place] [address] Mar, [facility] [place] [facility] [address] [facility] [id number] [place] [address] Mar, [facility] [place] [facility] [address] [facility] [id number] [place] [address] Mar, [facility] [place] [facility] [address] [id number] [place] [address] Mar, [facility] [place] [facility] [address] [facility] [id number] [place] [address] 07 Mar, 2013 [facility] [place] [facility] [address] [facility] [id number] [place] [address] Mar, [facility] [address] [id number] [place] [address] Mar, [facility] [place] [facility] [address] [id number] [place] [address] Feb, [facility] [place] [facility] [address] [id number] [place] [address] Feb, [facility] [place] [facility] [address] [id number] [place] [address] Feb, [facility] [place] [facility] [address] [id number] [place] [address] Feb, [facility] [place] [facility] [address] [id number] [place] [address] Feb, [facility] [place] [facility] [address] [id number] [place] [address] Feb, [facility] [place] [facility] [address] [id number] [place] [address] Feb, [facility] [place] [facility] [address] [id number] [place] [address] Feb, [facility] [place] [facility] [address] [id number] [place] [address] Feb, [facility] [place] [facility] [address] [id number] [place] [address] Feb, [facility] [place] [facility] [address] [id number] [place] [address] Jan, [facility] [place] [facility] [address] [id number] [place] [address] Jan, [facility] [place] [facility] [address] [id number] [place] [address] Jan, [facility] [place] [facility] [address] [id number] [place] [address] Jan, [facility] [place] [facility] [address] [id number] [place] [address] Jan, [facility] [address] [id number] [place] [address] Jan, [facility] [place] [facility] [address] [id number] [place] [address] Jan, [facility] [address] [id number] [place] [address] Jan, [facility] [place] [facility] [address] [id number] [place] [address] Jan, [facility] [address] [id number] [place] [address] Jan, [facility] [place] [facility] [address] [id number] [place] [address] Jan, [facility] [place] [facility] [address] [id number] [place] [address] Jan, [facility] [place] [address] [id number] [place] [address] Jan, [facility] [place] [facility] [address] [id number] [place] [address] Jan, [facility] [place] [facility] [address] [id number] [place] [address] Jan, [facility] [place] [facility] [address] [id number] [place] [address] Jan, [facility] [place] [facility] [address] [id number] [place] [address] Dec, [facility] [place] [facility] [address] [id number] [place] [address] Dec, [facility] [place] [facility] [address] [id number] [place] [address] Dec, [facility] [place] [facility] [address] [id number] [place] [address] Dec, [facility] [place] [facility] [address] [id number] [place] [address] 15 Dec, 2012 [facility] [place] [facility] [address] [id number] [place] [address] 15 Dec, 2012 [facility] [place] [facility] [address] [id number] [place] [address] Dec, [facility] [place] [facility] [address] [id number] [place] [address] Dec, [facility] [place] [facility] [address] [id number] [place] [address] Dec, [facility] [place] [facility] [address] [id number] [place] [address] Dec, [facility] [place] [facility] [address] [id number] [place] [address] Nov, [facility] [place] [facility] [address] [id number] [place] [address] 30 Nov, 2012 [facility] [place] [facility] [address] [id number] [place] [address] Nov, [facility] [place] [facility] [address] [id number] [place] [address] Nov, [facility] [place] [facility] [address] [id number] [place] [address] 18 Nov, 2012 [facility] [place] [facility] [address] [id number] [place] [address] 18 Nov, 2012 [facility] [place] [facility] [address] [id number] [place] [address] 14 Nov, 2012 [facility] [place] [facility] [address] [id number] [place] [address] 14 Nov, 2012 [facility] [place] [facility] [address] [id number] [place] [address] 09 Nov, 2012 [facility] [place] [facility] [address] [id number] [place] [address] 09 Nov, 2012 [facility] [address] [id number] [place] [address] 07 Nov, 2012 [facility] [place] [facility] [address] [id number] [place] [address] 05 Nov, 2012 [facility] [place] [facility] [address] [id number] [place] [address] 20 Oct, 2012 [facility] [place] [facility] [address] [id number] [place] [address] 20 Oct, 2012 [facility] [place] [facility] [address] [id number] [place] [address] 19 Oct, 2012 [facility] [place] [facility] [address] [id number] [place] [address] 18 Oct, 2012 [facility] [address] [id number] [place] [address] 13 Oct, 2012 [facility] [place] [facility] [address] [id number] [place] [address] 05 Oct, 2012 [facility] [place] [facility] [address] [id number] [place] [address] 04 Oct, 2012 [facility] [place] [facility] [address] [id number] [place] [address] 28 Sep, 2012 [facility] [place] [facility] [address] [id number] [place] [address] Sep, [facility] [place] [facility] [address] [id number] [place] [address] Sep, [facility] [place] [facility] [address] [id number] [place] [address] Sep, [facility] [place] [facility] [address] [id number] [place] [address] Sep, [facility] [place] [facility] [address] [id number] [place] [address] 08 Sep, 2012 [facility] [place] [facility] [address] [id number] [place] [address] Sep, [facility] [place] [facility] [address] [id number] [place] [address] Aug, [facility] [place] [facility] [address] [id number] [place] [address] Aug, [facility] [place] [facility] [address] [id number] [place] [address] Aug, [facility] [place] [facility] [address] [id number] [place] [address] Aug, [facility] [place] [facility] [address] [id number] [place] [address] Aug, [facility] [place] [facility] [address] [id number] [place] [address] Aug, [facility] [place] [facility] [address] [id number] [place] [address] Aug, [facility] [place] [facility] [address] [id number] [place] [address] Aug, [facility] [place] [facility] [address] [id number] [place] [address] Aug, [facility] [place] [facility] [address] [id number] [place] [address] Jul, [facility] [place] [facility] [address] [id number] [place] [address] Jul, [facility] [place] [facility] [address] [id number] [place] [address] Jul, [facility] [place] [facility] [address] [id number] [place] [address] Jul, [facility] [place] [facility] [address] [id number] [place] [address] Jul, [facility] [place] [facility] [address] [id number] [place] [address] Jul, [facility] [address] [id number] [place] [address] Jul, [facility] [address] [id number] [place] [address] June, [facility] [address] [id number] [place] [address] June, [facility] [address] [id number] [place] [address] June, [facility] [address] [id number] [place] [address] June, [facility] [address] [id number] [place] [address] June, [facility] [address] [id number] [place] [address] June, [facility] [address] [id number] [place] [address] June, [facility] [address] [id number] [place] [address] June, [facility] [address] [id number] [place] [address] May, [facility] [address] [id number] [place] [address] May, [facility] [place] [facility] [address] [id number] [place] [address] 16 May, 2012 [facility] [place] [facility] [address] [id number] [place] [address] 15 May, 2012 [facility] [place] [facility] [address] [id number] [place] [address] 08 May, 2012 [facility] [place] [facility] [address] [id number] [place] [address] May, [facility] [place] [facility] [address] [id number] [place] [address] 04 May, 2012 [facility] [address] [id number] [place] [address] May, [facility] [address] [id number] [place] [address] May, [facility] [address] [id number] [place] [address] May, [facility] [address] [id number] [place] [address] Apr, [facility] [address] [id number] [place] [address] 19 Apr, 2012 [facility] [address] [id number] [place] [address] 18 Apr, 2012 [facility] [address] [id number] [place] [address] 15 Apr, 2012 [facility] [address] [id number] [place] [address] 13 Apr, 2012 [facility] [address] [id number] [place] [address] 05 Apr, 2012 [facility] [address] [facility] [id number] [place] [address] 04 Apr, 2012 [facility] [address] [id number] [place] [address] 28 Mar, 2012 [facility] [address] [id number] [place] [address] Mar, [facility] [address] [id number] [place] [address] Mar, [facility] [address] [id number] [place] [address] Mar, [facility] [address] [id number] [place] [address] Mar, [facility] [place] [facility] [address] [id number] [place] [address] 07 Mar, 2012 [facility] [place] [facility] [address] [id number] [place] [address] 06 Mar, 2012 [facility] [place] [facility] [address] [id number] [place] [address] 05 Mar, 2012 [facility] [place] [facility] [address] [id number] [place] [address] Mar, [facility] [place] [facility] [address] [id number] [place] [address] Feb, [facility] [place] [facility] [address] [id number] [place] [address] Feb, [facility] [place] [facility] [address] [id number] [place] [address] Feb, [facility] [place] [facility] [address] [id number] [place] [address] Feb, [facility] [place] [facility] [address] [id number] [place] [address] Feb, [facility] [place] [facility] [address] [id number] [place] [address] Feb, [facility] [place] [facility] [address] [id number] [place] [address] Feb, [facility] [place] [facility] [address] [id number] [place] [address] Jan, [facility] [place] [facility] [address] [id number] [place] [address] Jan, [facility] [place] [facility] [address] [id number] [place] [address] Jan, [facility] [place] [facility] [address] [id number] [place] [address] Jan, [facility] [place] [facility] [address] [id number] [place] [address] 27 Jan, 2012 [facility] [address] [id number] [place] [address] 27 Jan, 2012 [facility] [place] [facility] [address] [id number] [place] [address] 14 Jan, 2012 [facility] [address] [id number] [place] [address] Jan, [facility] [place] [facility] [address] [id number] [place] [address] 10 Jan, 2012 [facility] [address] [id number] [place] [address] Jan, [facility] [address] [id number] [place] [address] 04 Jan, 2012 [facility] [address] [id number] [place] [address] Jan, [facility] [address] [id number] [place] [address] Jan, [facility] [place] [facility] [address] [id number] [place] [address] Dec, [facility] [address] [id number] [place] [address] 29 Dec, 2011 [facility] [place] [facility] [address] [id number] [place] [address] Dec, [facility] [place] [facility] [address] [id number] [place] [address] Dec, [facility] [place] [facility] [address] [id number] [place] [address] Dec, [facility] [place] [facility] [address] [id number] [place] [address] Dec, [facility] [place] [facility] [address] [id number] [place] [address] Dec, [facility] [place] [facility] [address] [id number] [place] [address] Dec, [facility] [place] [facility] [address] [id number] [place] [address] Dec, [facility] [place] [facility] [address] [id number] [place] [address] Dec, [facility] [place] [facility] [address] [id number] [place] [address] Dec, [facility] [place] [facility] [address] [id number] [place] [address] Dec, [facility] [place] [facility] [address] [id number] [place] [address] Dec, [facility] [place] [facility] [address] [id number] [place] [address] Dec, [facility] [place] [facility] [address] [id number] [place] [address] Nov, [facility] [place] [facility] [address] [id number] [place] [address] Nov, [facility] [place] [facility] [address] [facility] [id number] [place] [address] Nov, [facility] [place] [facility] [address] [id number] [place] [address] Nov, [facility] [place] [facility] [address] [id number] [place] [address] Nov, [facility] [place] [facility] [address] [id number] [place] [address] Nov, [facility] [place] [facility] [address] [id number] [place] [address] Nov, [facility] [place] [facility] [address] [facility] [id number] [place] [address] Nov, [facility] [place] [facility] [address] [id number] [place] [address] Nov, [facility] [place] [facility] [address] [id number] [place] [address] Nov, [facility] [place] [facility] [address] [id number] [place] [address] Nov, [facility] [place] [facility] [address] [facility] [id number] [place] [address] Nov, [facility] [place] [facility] [address] [id number] [place] [address] Nov, [facility] [place] [facility] [address] [id number] [place] [address] 25 Oct, 2011 [facility] [place] [facility] [address] [id number] [place] [address] 25 Oct, 2011 [facility] [place] [facility] [address] [facility] [id number] [place] [address] 24 Oct, 2011 [facility] [place] [facility] [address] [id number] [place] [address] 17 Oct, 2011 [facility] [place] [facility] [address] [id number] [place] [address] 14 Oct, 2011 [facility] [place] [facility] [address] [facility] [id number] [place] [address] 11 Oct, 2011 [facility] [place] [facility] [address] [id number] [place] [address] 06 Oct, 2011 [facility] [place] [facility] [address] [id number] [place] [address] Sep, [facility] [place] [facility] [address] [id number] [place] [address] Sep, [facility] [place] [facility] [address] [facility] [id number] [place] [address] Sep, [facility] [place] [facility] [address] [facility] [id number] [place] [address] Sep, [facility] [place] [facility] [address] [facility] [id number] [place] [address] Aug, IMMUNIZATIONS No Known Immunizations SOCIAL HISTORY Never Assessed REASON FOR VISIT EMR-[facility] [place]AN OF CARE VITAL SIGNS MEDICATIONS Unknown [...]
--- OUTSIDE RECORDS SUMMARY | 2018-07-22 18:59 | XMS REPORT ---
Author Author Migration, Doctor Organization [facility] Address Unknown Phone Unavailable Care Team Providers Care Educational Resource Coordinator Name Role Phone Migration, Doctor Unavailable Unavailable PROBLEMS Type Condition ICD9-CM Code TRA04-JN Code Onset Dates Condition Status SNOMED Code Problem Loss of weight 783.21 Active 693664698 Problem Unspecified arthropathy, site unspecified 716.90 Active 443524427 Problem Lumbago 724.2 Active 739932298 Problem Depressive disorder, not elsewhere classified 311 Active 48741662 Problem Other abnormal glucose 790.29 Active 487293459 Problem Anxiety state, unspecified 300.00 Active 634820817 Problem Chronic airway obstruction, not elsewhere classified 496 Active 19181106 Problem 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 479618131 Problem Unspecified essential hypertension 401.9 Active 97824016 Problem Migraine, unspecified without mention of intractable migraine without mention of status migrainosus 346.90 Active 21996090 ALLERGIES No Information ENCOUNTERS Encounter Location Date Diagnosis [facility], [place] [address] [address] Mar, [facility] [place] [address] [address] Feb, Arthropathy, unspecified M12.9 [facility], [place] [id number] [place] [address] Feb, [facility], [place] [id number] [place] [address] Jan, [facility], [place] [address] [address] Jan, [facility] [place] [address] [address] Jan, [facility], [place] [address] [address] Oct, 2014 [facility] [place] [facility] [address] [id number] [place] [address] 10 Oct, 2014 Lumbago 724.2 [facility] [place] [facility] [address] [id number] [place] [address] Oct, 2014 [facility] [place] [facility] [address] [id number] [place] [address] 08 Oct, 2014 [facility] [place] [facility] [address] [id number] [place] [address] 08 Oct, 2014 [facility] [place] [facility] [address] [id number] [place] [address] Oct, 2014 [facility] [place] [facility] [address] [id number] [place] [address] Oct, 2014 [facility] [place] [facility] [address] [id number] [place] [address] Oct, 2014 [facility] [place] [facility] [address] [id number] [place] [address] Sep, 2014 [facility] [place] [facility] [address] [id number] [place] [address] Sep, 2014 [facility] [place] [facility] [address] [id number] [place] [address] Aug, 2014 [facility] [place] [facility] [address] [id number] [place] [address] Aug, 2014 [facility] [place] [facility] [address] [id number] [place] [address] Aug, 2014 [facility] [place] [facility] [address] [id number] [place] [address] Aug, 2014 [facility] [place] [facility] [address] [id number] [place] [address] Aug, 2014 [facility] [place] [facility] [address] [id number] [place] [address] Aug2014 [facility] [place] [facility] [address] [facility] [id number] [address] Jul, Unspecified arthropathy, site unspecified 716.90 [facility], [place] [id number] [address] Jul, [facility], [place] [id number] [address] Jul, [facility], [place] [id number] [address] June, Acute bronchitis 466.0 ; Unspecified arthropathy, site unspecified 716.90 and Chronic pain disorder 338.4 [facility], [place] [id number] [address] June, [facility], [place] [id number] [address] June, [facility], [place] [id number] [address] June, [facility], [place] [id number] [address] June, [facility], [place] [id number] [address] May, [facility], [place] [address] [id number] [address] May, [facility], [place] [address] [id number] [address] May, [facility] [address] [id number] [address] Apr, [facility] [id number] [address] Apr, [facility] [address] [id number] [address] Apr, [facility], [place] [id number] [address] 12 Apr, 2014 [facility] [place] [facility] [address] [id number] [place] [address] Apr, 2014 [facility] [place] [facility] [address] [id number] [place] [address] 10 Apr, 2014 [facility] [place] [facility] [address] [facility] [id number] [place] [address] Apr, 2014 [facility] [place] [facility] [address] [id number] [place] [address] Apr, [facility] [place] [facility] [address] [id number] [place] [address] 24 Mar, 2014 [facility] [place] [facility] [address] [facility] [id number] [place] [address] 24 Mar, 2014 [facility] [place] [facility] [address] [facility] [id number] [place] [address] 17 Mar, 2014 [facility] [place] [facility] [address] [facility] [id number] [place] [address] 17 Mar, 2014 [facility] [place] [facility] [address] [facility] [id number] [place] [address] 17 Mar, 2014 [facility] [place] [facility] [address] [facility] [id number] [place] [address] 17 Mar, 2014 [facility] [place] [facility] [address] [facility] [id number] [place] [address] 13 Mar, 2014 [facility] [place] [facility] [address] [facility] [id number] [place] [address] 13 Mar, 2014 [facility] [place] [facility] [address] [facility] [id number] [place] [address] 13 Mar, 2014 [facility] [place] [facility] [address] [facility] [id number] [place] [address] 13 Mar, 2014 [facility] [place] [facility] [address] [facility] [id number] [place] [address] Mar, [facility] [place] [facility] [address] [id number] [place] [address] Mar, [facility] [place] [facility] [address] [id number] [place] [address] Mar, [facility] [place] [facility] [address] [id number] [place] [address] Mar, [facility] [place] [facility] [address] [id number] [place] [address] Mar, [facility] [place] [facility] [address] [id number] [place] [address] Feb, [facility] [place] [facility] [address] [id number] [place] [address] Feb, [facility] [place] [facility] [address] [id number] [place] [address] Feb, [facility] [place] [facility] [address] [id number] [place] [address] Feb, [facility] [place] [facility] [address] [id number] [place] [address] Feb, [facility] [place] [facility] [address] [id number] [place] [address] Feb, [facility] [place] [facility] [address] [id number] [place] [address] Feb, [facility] [place] [facility] [address] [id number] [address] Feb, [facility] [place] [facility] [address] [id number] [place] [address] Feb, [facility] [place] [facility] [address] [id number] [place] [address] Feb, [facility] [place] [facility] [address] [id number] [place] [address] Feb, [facility] [place] [facility] [address] [id number] [place] [address] Jan, [facility] [address] [id number] [place] [address] Jan, [facility] [address] [id number] [place] [address] 15 Jan, 2014 [facility] [address] [id number] [place] [address] 15 Jan, 2014 [facility] [address] [id number] [place] [address] 15 Jan, 2014 [facility] [address] [id number] [place] [address] Jan, [facility] [address] [id number] [place] [address] Jan, [facility] [address] [id number] [place] [address] Jan, [facility] [address] [id number] [place] [address] Jan, [facility] [address] [id number] [place] [address] Jan, [facility] [address] [id number] [place] [address] Jan, [facility] [place] [facility] [address] [id number] [place] [address] Jan, [facility] [place] [facility] [address] [id number] [place] [address] Jan, [facility] [place] [facility] [address] [id number] [place] [address] Jan, [facility] [place] [facility] [address] [id number] [place] [address] Jan, [facility] [place] [facility] [address] [id number] [place] [address] Dec, [facility] [place] [facility] [address] [id number] [place] [address] Dec, [facility] [place] [facility] [address] [id number] [place] [address] Dec, [facility] [place] [facility] [address] [id number] [place] [address] Dec, [facility] [place] [facility] [address] [id number] [place] [address] Dec, [facility] [place] [facility] [address] [id number] [place] [address] Dec, [facility] [place] [facility] [address] [id number] [place] [address] Dec, [facility] [place] [facility] [address] [id number] [place] [address] Dec, [facility] [place] [facility] [address] [id number] [place] [address] Dec, [facility] [place] [facility] [address] [id number] [place] [address] Dec, [facility] [place] [facility] [address] [id number] [place] [address] Dec, [facility] [place] [facility] [address] [id number] [place] [address] Dec, [facility] [place] [facility] [address] [id number] [address] Dec, [facility] [place] [facility] [address] [id number] [place] [address] Dec, [facility] [place] [facility] [address] [id number] [place] [address] Dec, [facility] [place] [facility] [address] [id number] [address] Dec, [facility] [place] [facility] [address] [id number] [address] Dec, [facility] [place] [facility] [address] [id number] [place] [address] Dec, [facility] [place] [facility] [address] [id number] [place] [address] Dec, [facility] [place] [facility] [address] [id number] [place] [address] Dec, [facility] [place] [facility] [address] [id number] [place] [address] Nov, [facility] [place] [facility] [address] [id number] [place] [address] Nov, [facility] [place] [facility] [address] [id number] [place] [address] Nov, [facility] [place] [facility] [address] [id number] [place] [address] Nov, [facility] [place] [facility] [address] [id number] [place] [address] 15 Nov, 2013 [facility] [place] [facility] [address] [id number] [place] [address] Nov, [facility] [place] [facility] [address] [id number] [place] [address] Nov, [facility] [place] [facility] [address] [id number] [address] Nov, [facility] [place] [facility] [address] [id number] [address] Nov, [facility] [place] [facility] [address] [id number] [place] [address] Nov, [facility] [place] [facility] [address] [id number] [address] Nov, [facility] [place] [facility] [address] [id number] [place] [address] Nov, [facility] [place] [facility] [address] [id number] [place] [address] 22 Oct, 2013 [facility] [place] [facility] [address] [id number] [place] [address] 22 Oct, 2013 [facility] [place] [facility] [address] [id number] [place] [address] 19 Oct, 2013 [facility] [place] [facility] [address] [id number] [place] [address] 19 Oct, 2013 [facility] [place] [facility] [address] [id number] [place] [address] 17 Oct, 2013 [facility] [place] [facility] [address] [id number] [place] [address] 17 Oct, 2013 [facility] [place] [facility] [address] [id number] [place] [address] 16 Oct, 2013 [facility] [place] [facility] [address] [id number] [place] [address] 16 Oct, 2013 [facility] [place] [facility] [address] [id number] [place] [address] Oct, 2013 [facility] [place] [facility] [address] [id number] [place] [address] Oct, 2013 [facility] [place] [facility] [address] [id number] [place] [address] Sep, [facility] [place] [facility] [address] [id number] [place] [address] Sep, [facility] [place] [facility] [address] [id number] [place] [address] Sep, [facility] [place] [facility] [address] [id number] [place] [address] Sep, [facility] [place] [facility] [address] [id number] [place] [address] Sep, [facility] [place] [facility] [address] [id number] [place] [address] Sep, [facility] [place] [facility] [address] [id number] [place] [address] Sep, [facility] [place] [facility] [address] [id number] [place] [address] Sep, [facility] [place] [facility] [address] [id number] [place] [address] Sep, [facility] [place] [facility] [address] [id number] [place] [address] Sep, [facility] [place] [facility] [address] [id number] [place] [address] Sep, [facility] [place] [facility] [address] [id number] [place] [address] Sep, [facility] [place] [facility] [address] [id number] [place] [address] Sep, [facility] [place] [facility] [address] [id number] [place] [address] Sep, [facility] [place] [facility] [address] [id number] [place] [address] Aug, [facility] [place] [facility] [address] [id number] [place] [address] Aug, [facility] [place] [facility] [address] [id number] [place] [address] Aug, [facility] [place] [facility] [address] [id number] [place] [address] Aug, [facility] [place] [facility] [address] [id number] [place] [address] Aug, [facility] [place] [facility] [address] [id number] [place] [address] Aug, [facility] [place] [facility] [address] [id number] [place] [address] Aug, [facility] [place] [facility] [address] [id number] [place] [address] Aug, [facility] [place] [facility] [address] [id number] [place] [address] Aug, [facility] [place] [facility] [address] [id number] [place] [address] Aug, [facility] [place] [facility] [address] [id number] [place] [address] Aug, [facility] [place] [facility] [address] [id number] [place] [address] Jul, [facility] [place] [facility] [address] [id number] [place] [address] Jul, [facility] [place] [facility] [address] [id number] [place] [address] Jul, [facility] [place] [facility] [address] [id number] [place] [address] Jul, [facility] [place] [facility] [address] [id number] [place] [address] Jul, [facility] [place] [facility] [address] [id number] [place] [address] Jul, [facility] [place] [facility] [address] [id number] [place] [address] Jul, [facility] [place] [facility] [address] [id number] [place] [address] Jul, [facility] [place] [facility] [address] [id number] [place] [address] Jul, [facility] [place] [facility] [address] [id number] [place] [address] Jul, [facility] [place] [facility] [address] [id number] [place] [address] June, [facility] [place] [facility] [address] [id number] [place] [address] June, [facility] [place] [facility] [address] [id number] [place] [address] June, [facility] [address] [id number] [place] [address] June, [facility] [place] [facility] [address] [id number] [place] [address] June, [facility] [place] [facility] [address] [id number] [place] [address] June, [facility] [address] [id number] [place] [address] June, [facility] [place] [facility] [address] [id number] [place] [address] June, [facility] [address] [id number] [place] [address] June, [facility] [address] [id number] [place] [address] June, [facility] [address] [id number] [place] [address] June, [facility] [place] [facility] [address] [id number] [place] [address] June, [facility] [place] [facility] [address] [id number] [place] [address] June, [facility] [place] [facility] [address] [id number] [place] [address] June, [facility] [place] [facility] [address] [id number] [place] [address] June, [facility] [place] [facility] [address] [id number] [place] [address] June, [facility] [place] [facility] [address] [id number] [place] [address] June, [facility] [place] [facility] [address] [id number] [place] [address] May, [facility] [place] [facility] [address] [id number] [place] [address] May, [facility] [place] [facility] [address] [id number] [place] [address] May, [facility] [place] [facility] [address] [id number] [place] [address] May, [facility] [place] [facility] [address] [id number] [place] [address] May, [facility] [place] [facility] [address] [id number] [place] [address] May, [facility] [place] [facility] [address] [id number] [place] [address] May, [facility] [place] [facility] [address] [id number] [place] [address] May, [facility] [place] [facility] [address] [id number] [place] [address] May, [facility] [place] [facility] [address] [id number] [place] [address] May, [facility] [place] [facility] [address] [id number] [place] [address] Apr, [facility] [place] [facility] [address] [id number] [place] [address] Apr, [facility] [place] [facility] [address] [id number] [place] [address] Apr, [facility] [place] [facility] [address] [id number] [place] [address] Apr, [facility] [place] [facility] [address] [id number] [place] [address] Apr, [facility] [place] [facility] [address] [id number] [place] [address] Apr, [facility] [place] [facility] [address] [id number] [place] [address] 13 Apr, 2013 [facility] [place] [facility] [address] [id number] [place] [address] 13 Apr, 2013 [facility] [place] [facility] [address] [id number] [place] [address] 07 Apr, 2013 [facility] [place] [facility] [address] [id number] [place] [address] Apr, [facility] [place] [facility] [address] [id number] [place] [address] Mar, [facility] [place] [facility] [address] [id number] [place] [address] Mar, [facility] [place] [facility] [address] [facility] [id number] [place] [address] Mar, [facility] [place] [facility] [address] [id number] [place] [address] Mar, [facility] [place] [facility] [address] [id number] [place] [address] Mar, [facility] [place] [facility] [address] [facility] [id number] [place] [address] Mar, [facility] [place] [facility] [address] [facility] [id number] [place] [address] Mar, [facility] [place] [facility] [address] [facility] [id number] [place] [address] Mar, [facility] [place] [facility] [address] [facility] [id number] [place] [address] Mar, [facility] [place] [facility] [address] [id number] [place] [address] Mar, [facility] [place] [facility] [address] [facility] [id number] [place] [address] 07 Mar, 2013 [facility] [place] [facility] [address] [facility] [id number] [place] [address] Mar, [facility] [address] [id number] [place] [address] Mar, [facility] [place] [facility] [address] [id number] [place] [address] Feb, [facility] [place] [facility] [address] [id number] [place] [address] Feb, [facility] [place] [facility] [address] [id number] [place] [address] Feb, [facility] [place] [facility] [address] [id number] [place] [address] Feb, [facility] [place] [facility] [address] [id number] [place] [address] Feb, [facility] [place] [facility] [address] [id number] [place] [address] Feb, [facility] [place] [facility] [address] [id number] [place] [address] Feb, [facility] [place] [facility] [address] [id number] [place] [address] Feb, [facility] [place] [facility] [address] [id number] [place] [address] Feb, [facility] [place] [facility] [address] [id number] [place] [address] Feb, [facility] [place] [facility] [address] [id number] [place] [address] Jan, [facility] [place] [facility] [address] [id number] [place] [address] Jan, [facility] [place] [facility] [address] [id number] [place] [address] Jan, [facility] [place] [facility] [address] [id number] [place] [address] Jan, [facility] [place] [facility] [address] [id number] [place] [address] Jan, [facility] [address] [id number] [place] [address] Jan, [facility] [place] [facility] [address] [id number] [place] [address] Jan, [facility] [address] [id number] [place] [address] Jan, [facility] [place] [facility] [address] [id number] [place] [address] Jan, [facility] [address] [id number] [place] [address] Jan, [facility] [place] [facility] [address] [id number] [place] [address] Jan, [facility] [place] [facility] [address] [id number] [place] [address] Jan, [facility] [address] [address] [id number] [place] [address] Jan, [facility] [place] [facility] [address] [id number] [place] [address] Jan, [facility] [place] [facility] [address] [id number] [place] [address] Jan, [facility] [place] [facility] [address] [id number] [place] [address] Jan, [facility] [place] [facility] [address] [id number] [place] [address] Dec, [facility] [place] [facility] [address] [id number] [place] [address] Dec, [facility] [place] [facility] [address] [id number] [place] [address] Dec, [facility] [place] [facility] [address] [id number] [place] [address] Dec, [facility] [place] [facility] [address] [id number] [place] [address] 15 Dec, 2012 [facility] [place] [facility] [address] [id number] [place] [address] 15 Dec, 2012 [facility] [place] [facility] [address] [id number] [place] [address] Dec, [facility] [place] [facility] [address] [id number] [place] [address] Dec, [facility] [place] [facility] [address] [id number] [place] [address] Dec, [facility] [place] [facility] [address] [id number] [place] [address] Dec, [facility] [place] [facility] [address] [id number] [place] [address] Nov, [facility] [place] [facility] [address] [id number] [address] 30 Nov, 2012 [facility] [place] [facility] [address] [id number] [place] [address] Nov, [facility] [place] [facility] [address] [id number] [address] Nov, [facility] [place] [facility] [address] [id number] [address] 18 Nov, 2012 [facility] [place] [facility] [address] [id number] [address] 18 Nov, 2012 [facility] [place] [facility] [address] [id number] [place] [address] 14 Nov, 2012 [facility] [place] [facility] [address] [id number] [address] 14 Nov, 2012 [facility] [place] [facility] [address] [id number] [address] 09 Nov, 2012 [facility] [place] [facility] [address] [id number] [place] [address] 09 Nov, 2012 [facility] [address] [id number] [place] [address] 07 Nov, 2012 [facility] [place] [facility] [address] [id number] [place] [address] 05 Nov, 2012 [facility] [place] [facility] [address] [id number] [place] [address] 20 Oct, 2012 [facility] [place] [facility] [address] [id number] [place] [address] 20 Oct, 2012 [facility] [place] [facility] [address] [id number] [place] [address] 19 Oct, 2012 [facility] [place] [facility] [address] [id number] [place] [address] 18 Oct, 2012 [facility] [address] [id number] [place] [address] 13 Oct, 2012 [facility] [place] [facility] [address] [id number] [place] [address] 05 Oct, 2012 [facility] [place] [facility] [address] [id number] [place] [address] 04 Oct, 2012 [facility] [place] [facility] [address] [id number] [place] [address] 28 Sep, 2012 [facility] [place] [facility] [address] [id number] [place] [address] Sep, [facility] [place] [facility] [address] [id number] [place] [address] Sep, [facility] [place] [facility] [address] [id number] [place] [address] Sep, [facility] [place] [facility] [address] [id number] [place] [address] Sep, [facility] [place] [facility] [address] [id number] [place] [address] 08 Sep, 2012 [facility] [place] [facility] [address] [id number] [place] [address] Sep, [facility] [place] [facility] [address] [id number] [place] [address] Aug, [facility] [place] [facility] [address] [id number] [place] [address] Aug, [facility] [place] [facility] [address] [id number] [place] [address] Aug, [facility] [place] [facility] [address] [id number] [place] [address] Aug, [facility] [place] [facility] [address] [id number] [place] [address] Aug, [facility] [place] [facility] [address] [id number] [place] [address] Aug, [facility] [place] [facility] [address] [id number] [place] [address] Aug, [facility] [place] [facility] [address] [id number] [place] [address] Aug, [facility] [place] [facility] [address] [id number] [place] [address] Aug, [facility] [place] [facility] [address] [id number] [place] [address] Jul, [facility] [place] [facility] [address] [id number] [place] [address] Jul, [facility] [place] [facility] [address] [id number] [place] [address] Jul, [facility] [place] [facility] [address] [id number] [place] [address] Jul, [facility] [place] [facility] [address] [id number] [place] [address] Jul, [facility] [place] [facility] [address] [id number] [place] [address] Jul, [facility] [address] [id number] [place] [address] Jul, [facility] [address] [id number] [place] [address] June, [facility] [address] [id number] [place] [address] June, [facility] [address] [id number] [place] [address] June, [facility] [address] [id number] [place] [address] June, [facility] [address] [id number] [place] [address] June, [facility] [address] [id number] [place] [address] June, [facility] [address] [id number] [place] [address] June, [facility] [address] [id number] [place] [address] June, [facility] [address] [id number] [place] [address] May, [facility] [address] [id number] [place] [address] May, [facility] [place] [facility] [address] [id number] [place] [address] 16 May, 2012 [facility] [place] [facility] [address] [id number] [place] [address] 15 May, 2012 [facility] [place] [facility] [address] [id number] [place] [address] 08 May, 2012 [facility] [place] [facility] [address] [id number] [place] [address] May, [facility] [place] [facility] [address] [id number] [place] [address] 04 May, 2012 [facility] [address] [id number] [place] [address] May, [facility] [address] [id number] [place] [address] May, [facility] [address] [id number] [place] [address] May, [facility] [address] [id number] [place] [address] Apr, [facility] [address] [id number] [place] [address] 19 Apr, 2012 [facility] [address] [id number] [place] [address] 18 Apr, 2012 [facility] [address] [id number] [place] [address] 15 Apr, 2012 [facility] [address] [id number] [place] [address] 13 Apr, 2012 [facility] [address] [id number] [place] [address] 05 Apr, 2012 [facility] [address] [facility] [id number] [place] [address] 04 Apr, 2012 [facility] [address] [id number] [place] [address] 28 Mar, 2012 [facility] [address] [id number] [place] [address] Mar, [facility] [address] [id number] [place] [address] Mar, [facility] [address] [id number] [place] [address] Mar, [facility] [address] [id number] [place] [address] Mar, [facility] [place] [facility] [address] [id number] [place] [address] 07 Mar, 2012 [facility] [place] [facility] [address] [id number] [place] [address] 06 Mar, 2012 [facility] [place] [facility] [address] [id number] [place] [address] 05 Mar, 2012 [facility] [place] [facility] [address] [id number] [place] [address] Mar, [facility] [place] [facility] [address] [id number] [place] [address] Feb, [facility] [place] [facility] [address] [id number] [place] [address] Feb, [facility] [place] [facility] [address] [id number] [place] [address] Feb, [facility] [place] [facility] [address] [id number] [place] [address] Feb, [facility] [place] [facility] [address] [id number] [place] [address] Feb, [facility] [place] [facility] [address] [id number] [place] [address] Feb, [facility] [place] [facility] [address] [id number] [place] [address] Feb, [facility] [place] [facility] [address] [id number] [place] [address] Jan, [facility] [place] [facility] [address] [id number] [place] [address] Jan, [facility] [place] [facility] [address] [id number] [place] [address] Jan, [facility] [place] [facility] [address] [id number] [place] [address] Jan, [facility] [place] [facility] [address] [id number] [place] [address] 27 Jan, 2012 [facility] [address] [id number] [place] [address] 27 Jan, 2012 [facility] [place] [facility] [address] [id number] [place] [address] 14 Jan, 2012 [facility] [address] [id number] [place] [address] Jan, [facility] [place] [facility] [address] [id number] [place] [address] 10 Jan, 2012 [facility] [address] [id number] [place] [address] Jan, [facility] [address] [id number] [place] [address] 04 Jan, 2012 [facility] [address] [id number] [place] [address] Jan, [facility] [address] [id number] [place] [address] Jan, [facility] [place] [facility] [address] [id number] [place] [address] Dec, [facility] [address] [id number] [place] [address] 29 Dec, 2011 [facility] [place] [facility] [address] [id number] [place] [address] Dec, [facility] [place] [facility] [address] [id number] [place] [address] Dec, [facility] [place] [facility] [address] [id number] [place] [address] Dec, [facility] [place] [facility] [address] [id number] [place] [address] Dec, [facility] [place] [facility] [address] [id number] [place] [address] Dec, [facility] [place] [facility] [address] [id number] [place] [address] Dec, [facility] [place] [facility] [address] [id number] [place] [address] Dec, [facility] [place] [facility] [address] [id number] [place] [address] Dec, [facility] [place] [facility] [address] [id number] [place] [address] Dec, [facility] [place] [facility] [address] [id number] [place] [address] Dec, [facility] [place] [facility] [address] [id number] [place] [address] Dec, [facility] [place] [facility] [address] [id number] [place] [address] Dec, [facility] [place] [facility] [address] [id number] [address] Nov, [facility] [place] [facility] [address] [id number] [place] [address] Nov, [facility] [place] [facility] [address] [facility] [id number] [address] Nov, [facility] [place] [facility] [address] [id number] [address] Nov, [facility] [place] [facility] [address] [id number] [address] Nov, [facility] [place] [facility] [address] [id number] [address] Nov, [facility] [place] [facility] [address] [id number] [address] Nov, [facility] [place] [facility] [address] [facility] [id number] [address] Nov, [facility] [place] [facility] [address] [id number] [address] Nov, [facility] [place] [facility] [address] [id number] [place] [address] Nov, [facility] [place] [facility] [address] [id number] [place] [address] Nov, [facility] [place] [facility] [address] [facility] [id number] [place] [address] Nov, [facility] [place] [facility] [address] [id number] [place] [address] Nov, [facility] [place] [facility] [address] [id number] [place] [address] 25 Oct, 2011 [facility] [place] [facility] [address] [id number] [place] [address] 25 Oct, 2011 [facility] [place] [facility] [address] [facility] [id number] [place] [address] 24 Oct, 2011 [facility] [place] [facility] [address] [id number] [place] [address] 17 Oct, 2011 [facility] [place] [facility] [address] [id number] [place] [address] 14 Oct, 2011 [facility] [place] [facility] [address] [facility] [id number] [place] [address] 11 Oct, 2011 [facility] [place] [facility] [address] [id number] [place] [address] 06 Oct, 2011 [facility] [place] [facility] [address] [id number] [address] Sep, [facility] [place] [facility] [address] [id number] [place] [address] Sep, [facility] [place] [facility] [address] [facility] [id number] [address] Sep, [facility] [place] [facility] [address] [facility] [id number] [place] [address] Sep, [facility] [place] [facility] [address] [facility] [id number] [place] [address] Aug, IMMUNIZATIONS No Known Immunizations SOCIAL HISTORY Never Assessed REASON FOR VISIT EMR-[facility] PLAN OF CARE VITAL SIGNS MEDICATIONS Unknown [...]
--- OUTSIDE RECORDS SUMMARY | 2018-07-22 18:59 | XMS REPORT ---
Author Author Migration, Doctor Organization [facility] Address Unknown Phone Unavailable Care Team Providers Care Quarter Backer Name Role Phone Migration, Doctor Unavailable Unavailable PROBLEMS Type Condition ICD9-CM Code WDD52-SC Code Onset Dates Condition Status SNOMED Code Problem Loss of weight 783.21 Active 982922656 Problem Unspecified arthropathy, site unspecified 716.90 Active 837374595 Problem Lumbago 724.2 Active 922047984 Problem Depressive disorder, not elsewhere classified 311 Active 69772858 Problem Other abnormal glucose 790.29 Active 931944155 Problem Anxiety state, unspecified 300.00 Active 171706282 Problem Chronic airway obstruction, not elsewhere classified 496 Active 51677220 Problem 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 470665295 Problem Unspecified essential hypertension 401.9 Active 06006093 Problem Migraine, unspecified without mention of intractable migraine without mention of status migrainosus 346.90 Active 73633378 ALLERGIES No Information ENCOUNTERS Encounter Location Date Diagnosis [facility] [address] [address] Mar, [facility] [address] [address] Feb, Arthropathy, unspecified M12.9 [facility] [id number] [place] [address] Feb, [facility] [id number] [place] [address] Jan, [facility] [address] [address] Jan, [facility] [address] [address] Jan, [facility] [address] [address] Oct, 2014 [facility] [place] [facility] [address] [id number] [place] [address] 10 Oct, 2014 Lumbago 724.2 [facility] [place] [facility] [address] [id number] [place] [address] Oct, 2014 [facility] [place] [facility] [address] [id number] [place] [address] 08 Oct, 2014 [facility] [place] [facility] [address] [id number] [place] [address] 08 Oct, 2014 [facility] [place] [facility] [address] [id number] [place] [address] Oct, 2014 [facility] [place] [facility] [address] [id number] [place] [address] Oct, 2014 [facility] [place] [facility] [address] [id number] [place] [address] Oct, 2014 [facility] [place] [facility] [address] [id number] [place] [address] Sep, 2014 [facility] [place] [facility] [address] [id number] [place] [address] Sep, 2014 [facility] [place] [facility] [address] [id number] [place] [address] Aug, 2014 [facility] [place] [facility] [address] [id number] [place] [address] Aug, 2014 [facility] [place] [facility] [address] [id number] [place] [address] Aug, 2014 [facility] [place] [facility] [address] [id number] [place] [address] Aug, 2014 [facility] [place] [facility] [address] [id number] [place] [address] Aug, 2014 [facility] [place] [facility] [address] [id number] [place] [address] Aug2014 [facility] [place] [facility] [address] [facility] [id number], [place] [address] Jul, Unspecified arthropathy, site unspecified 716.90 [facility] [address], [place] [address] Jul, [facility] [address], [place] [address] Jul, [facility] [address], [place] [address] June, Acute bronchitis 466.0 ; Unspecified arthropathy, site unspecified 716.90 and Chronic pain disorder 338.4 [facility] [address], [place] [address] June, [facility] [id number], [place] [address] June, [facility] [address], [place] [address] June, [facility] [id number], [place] [address] June, [facility] [address], [place] [address] May, [facility] [address] [id number] [address] May, [facility] [address] [id number] [address] May, [facility] [address] [id number] [address] Apr, [facility] [id number], [place] [address] Apr, [facility] [address] [id number] [address] Apr, [facility] [address], [place] [address] 12 Apr, 2014 [facility] [place] [facility] [address] [id number] [place] [address] Apr, 2014 [facility] [place] [facility] [address] [id number] [place] [address] 10 Apr, 2014 [facility] [place] [facility] [address] [facility] [id number] [place] [address] Apr, 2014 [facility] [place] [facility] [address] [id number] [place] [address] Apr, [facility] [place] [facility] [address] [id number] [place] [address] 24 Mar, 2014 [facility] [place] [facility] [address] [facility] [id number] [place] [address] 24 Mar, 2014 [facility] [place] [facility] [address] [facility] [id number] [place] [address] 17 Mar, 2014 [facility] [place] [facility] [address] [facility] [id number] [place] [address] 17 Mar, 2014 [facility] [place] [facility] [address] [facility] [id number] [place] [address] 17 Mar, 2014 [facility] [place] [facility] [address] [facility] [id number] [place] [address] 17 Mar, 2014 [facility] [place] [facility] [address] [facility] [id number] [place] [address] 13 Mar, 2014 [facility] [place] [facility] [address] [facility] [id number] [place] [address] 13 Mar, 2014 [facility] [place] [facility] [address] [facility] [id number] [place] [address] 13 Mar, 2014 [facility] [place] [facility] [address] [facility] [id number] [place] [address] 13 Mar, 2014 [facility] [place] [facility] [address] [facility] [id number] [place] [address] Mar, [facility] [place] [facility] [address] [id number] [place] [address] Mar, [facility] [place] [facility] [address] [id number] [place] [address] Mar, [facility] [place] [facility] [address] [id number] [place] [address] Mar, [facility] [place] [facility] [address] [id number] [place] [address] Mar, [facility] [place] [facility] [address] [id number] [place] [address] Feb, [facility] [place] [facility] [address] [id number] [place] [address] Feb, [facility] [place] [facility] [address] [id number] [place] [address] Feb, [facility] [place] [facility] [address] [id number] [place] [address] Feb, [facility] [place] [facility] [address] [id number] [place] [address] Feb, [facility] [place] [facility] [address] [id number] [place] [address] Feb, [facility] [place] [facility] [address] [id number] [place] [address] Feb, [facility] [place] [facility] [address] [id number], [place] [address] Feb, [facility] [place] [facility] [address] [id number] [place] [address] Feb, [facility] [place] [facility] [address] [id number] [place] [address] Feb, [facility] [place] [facility] [address] [id number] [place] [address] Feb, [facility] [place] [facility] [address] [id number] [place] [address] Jan, [facility] [address] [id number] [place] [address] Jan, [facility] [address] [id number] [place] [address] 15 Jan, 2014 [facility] [address] [id number] [place] [address] 15 Jan, 2014 [facility] [address] [id number] [place] [address] 15 Jan, 2014 [facility] [address] [id number] [place] [address] Jan, [facility] [address] [id number] [place] [address] Jan, [facility] [address] [id number] [place] [address] Jan, [facility] [address] [id number] [place] [address] Jan, [facility] [address] [id number] [place] [address] Jan, [facility] [address] [id number] [place] [address] Jan, [facility] [place] [facility] [address] [id number] [place] [address] Jan, [facility] [place] [facility] [address] [id number] [place] [address] Jan, [facility] [place] [facility] [address] [id number] [place] [address] Jan, [facility] [place] [facility] [address] [id number] [place] [address] Jan, [facility] [place] [facility] [address] [id number] [place] [address] Dec, [facility] [place] [facility] [address] [id number] [place] [address] Dec, [facility] [place] [facility] [address] [id number] [place] [address] Dec, [facility] [place] [facility] [address] [id number] [place] [address] Dec, [facility] [place] [facility] [address] [id number] [place] [address] Dec, [facility] [place] [facility] [address] [id number] [place] [address] Dec, [facility] [place] [facility] [address] [id number] [place] [address] Dec, [facility] [place] [facility] [address] [id number] [place] [address] Dec, [facility] [place] [facility] [address] [id number] [place] [address] Dec, [facility] [place] [facility] [address] [id number] [place] [address] Dec, [facility] [place] [facility] [address] [id number] [place] [address] Dec, [facility] [place] [facility] [address] [id number] [place] [address] Dec, [facility] [place] [facility] [address] [id number], [place] [address] Dec, [facility] [place] [facility] [address] [id number] [place] [address] Dec, [facility] [place] [facility] [address] [id number] [place] [address] Dec, [facility] [place] [facility] [address] [id number], [place] [address] Dec, [facility] [place] [facility] [address] [id number], [place] [address] Dec, [facility] [place] [facility] [address] [id number] [place] [address] Dec, [facility] [place] [facility] [address] [id number] [place] [address] Dec, [facility] [place] [facility] [address] [id number] [place] [address] Dec, [facility] [place] [facility] [address] [id number] [place] [address] Nov, [facility] [place] [facility] [address] [id number] [place] [address] Nov, [facility] [place] [facility] [address] [id number] [place] [address] Nov, [facility] [place] [facility] [address] [id number] [place] [address] Nov, [facility] [place] [facility] [address] [id number] [place] [address] 15 Nov, 2013 [facility] [place] [facility] [address] [id number] [place] [address] Nov, [facility] [place] [facility] [address] [id number] [place] [address] Nov, [facility] [place] [facility] [address] [id number], [place] [address] Nov, [facility] [place] [facility] [address] [id number], [place] [address] Nov, [facility] [place] [facility] [address] [id number] [place] [address] Nov, [facility] [place] [facility] [address] [id number], [place] [address] Nov, [facility] [place] [facility] [address] [id number] [place] [address] Nov, [facility] [place] [facility] [address] [id number] [place] [address] 22 Oct, 2013 [facility] [place] [facility] [address] [id number] [place] [address] 22 Oct, 2013 [facility] [place] [facility] [address] [id number] [place] [address] 19 Oct, 2013 [facility] [place] [facility] [address] [id number] [place] [address] 19 Oct, 2013 [facility] [place] [facility] [address] [id number] [place] [address] 17 Oct, 2013 [facility] [place] [facility] [address] [id number] [place] [address] 17 Oct, 2013 [facility] [place] [facility] [address] [id number] [place] [address] 16 Oct, 2013 [facility] [place] [facility] [address] [id number] [place] [address] 16 Oct, 2013 [facility] [place] [facility] [address] [id number] [place] [address] Oct, 2013 [facility] [place] [facility] [address] [id number] [place] [address] Oct, 2013 [facility] [place] [facility] [address] [id number] [place] [address] Sep, [facility] [place] [facility] [address] [id number] [place] [address] Sep, [facility] [place] [facility] [address] [id number] [place] [address] Sep, [facility] [place] [facility] [address] [id number] [place] [address] Sep, [facility] [place] [facility] [address] [id number] [place] [address] Sep, [facility] [place] [facility] [address] [id number] [place] [address] Sep, [facility] [place] [facility] [address] [id number] [place] [address] Sep, [facility] [place] [facility] [address] [id number] [place] [address] Sep, [facility] [place] [facility] [address] [id number] [place] [address] Sep, [facility] [place] [facility] [address] [id number] [place] [address] Sep, [facility] [place] [facility] [address] [id number] [place] [address] Sep, [facility] [place] [facility] [address] [id number] [place] [address] Sep, [facility] [place] [facility] [address] [id number] [place] [address] Sep, [facility] [place] [facility] [address] [id number] [place] [address] Sep, [facility] [place] [facility] [address] [id number] [place] [address] Aug, [facility] [place] [facility] [address] [id number] [place] [address] Aug, [facility] [place] [facility] [address] [id number] [place] [address] Aug, [facility] [place] [facility] [address] [id number] [place] [address] Aug, [facility] [place] [facility] [address] [id number] [place] [address] Aug, [facility] [place] [facility] [address] [id number] [place] [address] Aug, [facility] [place] [facility] [address] [id number] [place] [address] Aug, [facility] [place] [facility] [address] [id number] [place] [address] Aug, [facility] [place] [facility] [address] [id number] [place] [address] Aug, [facility] [place] [facility] [address] [id number] [place] [address] Aug, [facility] [place] [facility] [address] [id number] [place] [address] Aug, [facility] [place] [facility] [address] [id number] [place] [address] Jul, [facility] [place] [facility] [address] [id number] [place] [address] Jul, [facility] [place] [facility] [address] [id number] [place] [address] Jul, [facility] [place] [facility] [address] [id number] [place] [address] Jul, [facility] [place] [facility] [address] [id number] [place] [address] Jul, [facility] [place] [facility] [address] [id number] [place] [address] Jul, [facility] [place] [facility] [address] [id number] [place] [address] Jul, [facility] [place] [facility] [address] [id number] [place] [address] Jul, [facility] [place] [facility] [address] [id number] [place] [address] Jul, [facility] [place] [facility] [address] [id number] [place] [address] Jul, [facility] [place] [facility] [address] [id number] [place] [address] June, [facility] [place] [facility] [address] [id number] [place] [address] June, [facility] [place] [facility] [address] [id number] [place] [address] June, [facility] [address] [id number] [place] [address] June, [facility] [place] [facility] [address] [id number] [place] [address] June, [facility] [place] [facility] [address] [id number] [place] [address] June, [facility] [address] [id number] [place] [address] June, [facility] [place] [facility] [address] [id number] [place] [address] June, [facility] [address] [id number] [place] [address] June, [facility] [address] [id number] [place] [address] June, [facility] [address] [id number] [place] [address] June, [facility] [place] [facility] [address] [id number] [place] [address] June, [facility] [place] [facility] [address] [id number] [place] [address] June, [facility] [place] [facility] [address] [id number] [place] [address] June, [facility] [place] [facility] [address] [id number] [place] [address] June, [facility] [place] [facility] [address] [id number] [place] [address] June, [facility] [place] [facility] [address] [id number] [place] [address] June, [facility] [place] [facility] [address] [id number] [place] [address] May, [facility] [place] [facility] [address] [id number] [place] [address] May, [facility] [place] [facility] [address] [id number] [place] [address] May, [facility] [place] [facility] [address] [id number] [place] [address] May, [facility] [place] [facility] [address] [id number] [place] [address] May, [facility] [place] [facility] [address] [id number] [place] [address] May, [facility] [place] [facility] [address] [id number] [place] [address] May, [facility] [place] [facility] [address] [id number] [place] [address] May, [facility] [place] [facility] [address] [id number] [place] [address] May, [facility] [place] [facility] [address] [id number] [place] [address] May, [facility] [place] [facility] [address] [id number] [place] [address] Apr, [facility] [place] [facility] [address] [id number] [place] [address] Apr, [facility] [place] [facility] [address] [id number] [place] [address] Apr, [facility] [place] [facility] [address] [id number] [place] [address] Apr, [facility] [place] [facility] [address] [id number] [place] [address] Apr, [facility] [place] [facility] [address] [id number] [place] [address] Apr, [facility] [place] [facility] [address] [id number] [place] [address] 13 Apr, 2013 [facility] [place] [facility] [address] [id number] [place] [address] 13 Apr, 2013 [facility] [place] [facility] [address] [id number] [place] [address] 07 Apr, 2013 [facility] [place] [facility] [address] [id number] [place] [address] Apr, [facility] [place] [facility] [address] [id number] [place] [address] Mar, [facility] [place] [facility] [address] [id number] [place] [address] Mar, [facility] [place] [facility] [address] [facility] [id number] [place] [address] Mar, [facility] [place] [facility] [address] [id number] [place] [address] Mar, [facility] [place] [facility] [address] [id number] [place] [address] Mar, [facility] [place] [facility] [address] [facility] [id number] [place] [address] Mar, [facility] [place] [facility] [address] [facility] [id number] [place] [address] Mar, [facility] [place] [facility] [address] [facility] [id number] [place] [address] Mar, [facility] [place] [facility] [address] [facility] [id number] [place] [address] Mar, [facility] [place] [facility] [address] [id number] [place] [address] Mar, [facility] [place] [facility] [address] [facility] [id number] [place] [address] 07 Mar, 2013 [facility] [place] [facility] [address] [facility] [id number] [place] [address] Mar, [facility] [address] [id number] [place] [address] Mar, [facility] [place] [facility] [address] [id number] [place] [address] Feb, [facility] [place] [facility] [address] [id number] [place] [address] Feb, [facility] [place] [facility] [address] [id number] [place] [address] Feb, [facility] [place] [facility] [address] [id number] [place] [address] Feb, [facility] [place] [facility] [address] [id number] [place] [address] Feb, [facility] [place] [facility] [address] [id number] [place] [address] Feb, [facility] [place] [facility] [address] [id number] [place] [address] Feb, [facility] [place] [facility] [address] [id number] [place] [address] Feb, [facility] [place] [facility] [address] [id number] [place] [address] Feb, [facility] [place] [facility] [address] [id number] [place] [address] Feb, [facility] [place] [facility] [address] [id number] [place] [address] Jan, [facility] [place] [facility] [address] [id number] [place] [address] Jan, [facility] [place] [facility] [address] [id number] [place] [address] Jan, [facility] [place] [facility] [address] [id number] [place] [address] Jan, [facility] [place] [facility] [address] [id number] [place] [address] Jan, [facility] [address] [id number] [place] [address] Jan, [facility] [place] [facility] [address] [id number] [place] [address] Jan, [facility] [address] [id number] [place] [address] Jan, [facility] [place] [facility] [address] [id number] [place] [address] Jan, [facility] [address] [id number] [place] [address] Jan, [facility] [place] [facility] [address] [id number] [place] [address] Jan, [facility] [place] [facility] [address] [id number] [place] [address] Jan, [facility] [address] [id number] [place] [address] Jan, [facility] [place] [facility] [address] [id number] [place] [address] Jan, [facility] [place] [facility] [address] [id number] [place] [address] Jan, [facility] [place] [facility] [address] [id number] [place] [address] Jan, [facility] [place] [facility] [address] [id number] [place] [address] Dec, [facility] [place] [facility] [address] [id number] [place] [address] Dec, [facility] [place] [facility] [address] [id number] [place] [address] Dec, [facility] [place] [facility] [address] [id number] [place] [address] Dec, [facility] [place] [facility] [address] [id number] [place] [address] 15 Dec, 2012 [facility] [place] [facility] [address] [id number] [place] [address] 15 Dec, 2012 [facility] [place] [facility] [address] [id number] [place] [address] Dec, [facility] [place] [facility] [address] [id number] [place] [address] Dec, [facility] [place] [facility] [address] [id number] [place] [address] Dec, [facility] [place] [facility] [address] [id number] [place] [address] Dec, [facility] [place] [facility] [address] [id number] [place] [address] Nov, [facility] [place] [facility] [address] [id number], [place] [address] 30 Nov, 2012 [facility] [place] [facility] [address] [id number] [place] [address] Nov, [facility] [place] [facility] [address] [id number], [place] [address] Nov, [facility] [place] [facility] [address] [id number], [place] [address] 18 Nov, 2012 [facility] [place] [facility] [address] [id number], [place] [address] 18 Nov, 2012 [facility] [place] [facility] [address] [id number] [place] [address] 14 Nov, 2012 [facility] [place] [facility] [address] [id number], [place] [address] 14 Nov, 2012 [facility] [place] [facility] [address] [id number], [place] [address] 09 Nov, 2012 [facility] [place] [facility] [address] [id number] [place] [address] 09 Nov, 2012 [facility] [address] [id number] [place] [address] 07 Nov, 2012 [facility] [place] [facility] [address] [id number] [place] [address] 05 Nov, 2012 [facility] [place] [facility] [address] [id number] [place] [address] 20 Oct, 2012 [facility] [place] [facility] [address] [id number] [place] [address] 20 Oct, 2012 [facility] [place] [facility] [address] [id number] [place] [address] 19 Oct, 2012 [facility] [place] [facility] [address] [id number] [place] [address] 18 Oct, 2012 [facility] [address] [id number] [place] [address] 13 Oct, 2012 [facility] [place] [facility] [address] [id number] [place] [address] 05 Oct, 2012 [facility] [place] [facility] [address] [id number] [place] [address] 04 Oct, 2012 [facility] [place] [facility] [address] [id number] [place] [address] 28 Sep, 2012 [facility] [place] [facility] [address] [id number] [place] [address] Sep, [facility] [place] [facility] [address] [id number] [place] [address] Sep, [facility] [place] [facility] [address] [id number] [place] [address] Sep, [facility] [place] [facility] [address] [id number] [place] [address] Sep, [facility] [place] [facility] [address] [id number] [place] [address] 08 Sep, 2012 [facility] [place] [facility] [address] [id number] [place] [address] Sep, [facility] [place] [facility] [address] [id number] [place] [address] Aug, [facility] [place] [facility] [address] [id number] [place] [address] Aug, [facility] [place] [facility] [address] [id number] [place] [address] Aug, [facility] [place] [facility] [address] [id number] [place] [address] Aug, [facility] [place] [facility] [address] [id number] [place] [address] Aug, [facility] [place] [facility] [address] [id number] [place] [address] Aug, [facility] [place] [facility] [address] [id number] [place] [address] Aug, [facility] [place] [facility] [address] [id number] [place] [address] Aug, [facility] [place] [facility] [address] [id number] [place] [address] Aug, [facility] [place] [facility] [address] [id number] [place] [address] Jul, [facility] [place] [facility] [address] [id number] [place] [address] Jul, [facility] [place] [facility] [address] [id number] [place] [address] Jul, [facility] [place] [facility] [address] [id number] [place] [address] Jul, [facility] [place] [facility] [address] [id number] [place] [address] Jul, [facility] [place] [facility] [address] [id number] [place] [address] Jul, [facility] [address] [id number] [place] [address] Jul, [facility] [address] [id number] [place] [address] June, [facility] [address] [id number] [place] [address] June, [facility] [address] [id number] [place] [address] June, [facility] [address] [id number] [place] [address] June, [facility] [address] [id number] [place] [address] June, [facility] [address] [id number] [place] [address] June, [facility] [address] [id number] [place] [address] June, [facility] [address] [id number] [place] [address] June, [facility] [address] [id number] [place] [address] May, [facility] [address] [id number] [place] [address] May, [facility] [place] [facility] [address] [id number] [place] [address] 16 May, 2012 [facility] [place] [facility] [address] [id number] [place] [address] 15 May, 2012 [facility] [place] [facility] [address] [id number] [place] [address] 08 May, 2012 [facility] [place] [facility] [address] [id number] [place] [address] May, [facility] [place] [facility] [address] [id number] [place] [address] 04 May, 2012 [facility] [address] [id number] [place] [address] May, [facility] [address] [id number] [place] [address] May, [facility] [address] [id number] [place] [address] May, [facility] [address] [id number] [place] [address] Apr, [facility] [address] [id number] [place] [address] 19 Apr, 2012 [facility] [address] [id number] [place] [address] 18 Apr, 2012 [facility] [address] [id number] [place] [address] 15 Apr, 2012 [facility] [address] [id number] [place] [address] 13 Apr, 2012 [facility] [address] [id number] [place] [address] 05 Apr, 2012 [facility] [address] [facility] [id number] [place] [address] 04 Apr, 2012 [facility] [address] [id number] [place] [address] 28 Mar, 2012 [facility] [address] [id number] [place] [address] Mar, [facility] [address] [id number] [place] [address] Mar, [facility] [address] [id number] [place] [address] Mar, [facility] [address] [id number] [place] [address] Mar, [facility] [place] [facility] [address] [id number] [place] [address] 07 Mar, 2012 [facility] [place] [facility] [address] [id number] [place] [address] 06 Mar, 2012 [facility] [place] [facility] [address] [id number] [place] [address] 05 Mar, 2012 [facility] [place] [facility] [address] [id number] [place] [address] Mar, [facility] [place] [facility] [address] [id number] [place] [address] Feb, [facility] [place] [facility] [address] [id number] [place] [address] Feb, [facility] [place] [facility] [address] [id number] [place] [address] Feb, [facility] [place] [facility] [address] [id number] [place] [address] Feb, [facility] [place] [facility] [address] [id number] [place] [address] Feb, [facility] [place] [facility] [address] [id number] [place] [address] Feb, [facility] [place] [facility] [address] [id number] [place] [address] Feb, [facility] [place] [facility] [address] [id number] [place] [address] Jan, [facility] [place] [facility] [address] [id number] [place] [address] Jan, [facility] [place] [facility] [address] [id number] [place] [address] Jan, [facility] [place] [facility] [address] [id number] [place] [address] Jan, [facility] [place] [facility] [address] [id number] [place] [address] 27 Jan, 2012 [facility] [address] [id number] [place] [address] 27 Jan, 2012 [facility] [place] [facility] [address] [id number] [place] [address] 14 Jan, 2012 [facility] [address] [id number] [place] [address] Jan, [facility] [place] [facility] [address] [id number] [place] [address] 10 Jan, 2012 [facility] [address] [id number] [place] [address] Jan, [facility] [address] [id number] [place] [address] 04 Jan, 2012 [facility] [address] [id number] [place] [address] Jan, [facility] [address] [id number] [place] [address] Jan, [facility] [place] [facility] [address] [id number] [place] [address] Dec, [facility] [address] [id number] [place] [address] 29 Dec, 2011 [facility] [place] [facility] [address] [id number] [place] [address] Dec, [facility] [place] [facility] [address] [id number] [place] [address] Dec, [facility] [place] [facility] [address] [id number] [place] [address] Dec, [facility] [place] [facility] [address] [id number] [place] [address] Dec, [facility] [place] [facility] [address] [id number] [place] [address] Dec, [facility] [place] [facility] [address] [id number] [place] [address] Dec, [facility] [place] [facility] [address] [id number] [place] [address] Dec, [facility] [place] [facility] [address] [id number] [place] [address] Dec, [facility] [place] [facility] [address] [id number] [place] [address] Dec, [facility] [place] [facility] [address] [id number] [place] [address] Dec, [facility] [place] [facility] [address] [id number] [place] [address] Dec, [facility] [place] [facility] [address] [id number] [place] [address] Dec, [facility] [place] [facility] [address] [id number], [place] [address] Nov, [facility] [place] [facility] [address] [id number] [place] [address] Nov, [facility] [place] [facility] [address] [facility] [id number], [place] [address] Nov, [facility] [place] [facility] [address] [id number], [place] [address] Nov, [facility] [place] [facility] [address] [id number], [place] [address] Nov, [facility] [place] [facility] [address] [id number], [place] [address] Nov, [facility] [place] [facility] [address] [id number], [place] [address] Nov, [facility] [place] [facility] [address] [facility] [id number], [place] [address] Nov, [facility] [place] [facility] [address] [id number], [place] [address] Nov, [facility] [place] [facility] [address] [id number] [place] [address] Nov, [facility] [place] [facility] [address] [id number] [place] [address] Nov, [facility] [place] [facility] [address] [facility] [id number] [place] [address] Nov, [facility] [place] [facility] [address] [id number] [place] [address] Nov, [facility] [place] [facility] [address] [id number] [place] [address] 25 Oct, 2011 [facility] [place] [facility] [address] [id number] [place] [address] 25 Oct, 2011 [facility] [place] [facility] [address] [facility] [id number] [place] [address] 24 Oct, 2011 [facility] [place] [facility] [address] [id number] [place] [address] 17 Oct, 2011 [facility] [place] [facility] [address] [id number] [place] [address] 14 Oct, 2011 [facility] [place] [facility] [address] [facility] [id number] [place] [address] 11 Oct, 2011 [facility] [place] [facility] [address] [id number] [place] [address] 06 Oct, 2011 [facility] [place] [facility] [address] [id number], [place] [address] Sep, [facility] [place] [facility] [address] [id number] [place] [address] Sep, [facility] [place] [facility] [address] [facility] [id number], [place] [address] Sep, [facility] [place] [facility] [address] [facility] [id number] [place] [address] Sep, [facility] [place] [facility] [address] [facility] [id number] [place] [address] Aug, IMMUNIZATIONS No Known Immunizations SOCIAL HISTORY Never Assessed REASON FOR VISIT [place] [place] VITAL SIGNS MEDICATIONS Unknown [...]
--- OUTSIDE RECORDS SUMMARY | 2018-07-22 19:00 | XMS REPORT ---
Author Author Migration, Doctor Organization [facility] Address Unknown Phone Unavailable Care Team Providers Care Manager Cash Name Role Phone Migration, Doctor Unavailable Unavailable PROBLEMS Type Condition ICD9-CM Code ATC05-IV Code Onset Dates Condition Status SNOMED Code Problem Loss of weight 783.21 Active 362034642 Problem Unspecified arthropathy, site unspecified 716.90 Active 826338957 Problem Lumbago 724.2 Active 001939390 Problem Depressive disorder, not elsewhere classified 311 Active 86315497 Problem Other abnormal glucose 790.29 Active 057309464 Problem Anxiety state, unspecified 300.00 Active 634732019 Problem Chronic airway obstruction, not elsewhere classified 496 Active 28375515 Problem 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 286004474 Problem Unspecified essential hypertension 401.9 Active 81130186 Problem Migraine, unspecified without mention of intractable migraine without mention of status migrainosus 346.90 Active 12051699 ALLERGIES No Information ENCOUNTERS Encounter Location Date Diagnosis [facility] [address] [address] Mar, [facility] [address] [address] Feb, Arthropathy, unspecified M12.9 [facility] [id number] [place] [address] Feb, [facility] [id number] [place] [address] Jan, [facility] [address] [address] Jan, [facility] [address] [address] Jan, [facility] [address] [address] Oct, 2014 [facility] [place] [facility] [address] [id number] [place] [address] 10 Oct, 2014 Lumbago 724.2 [facility] [place] [facility] [address] [id number] [place] [address] Oct, 2014 [facility] [place] [facility] [address] [id number] [place] [address] 08 Oct, 2014 [facility] [place] [facility] [address] [id number] [place] [address] 08 Oct, 2014 [facility] [place] [facility] [address] [id number] [place] [address] Oct, 2014 [facility] [place] [facility] [address] [id number] [place] [address] Oct, 2014 [facility] [place] [facility] [address] [id number] [place] [address] Oct, 2014 [facility] [place] [facility] [address] [id number] [place] [address] Sep, 2014 [facility] [place] [facility] [address] [id number] [place] [address] Sep, 2014 [facility] [place] [facility] [address] [id number] [place] [address] Aug, 2014 [facility] [place] [facility] [address] [id number] [place] [address] Aug, 2014 [facility] [place] [facility] [address] [id number] [place] [address] Aug, 2014 [facility] [place] [facility] [address] [id number] [place] [address] Aug, 2014 [facility] [place] [facility] [address] [id number] [place] [address] Aug, 2014 [facility] [place] [facility] [address] [id number] [place] [address] Aug2014 [facility] [place] [facility] [address] [facility] [id number] [address] Jul, Unspecified arthropathy, site unspecified 716.90 [facility] [id number] [address] Jul, [facility] [id number] [address] Jul, [facility] [id number] [address] June, Acute bronchitis 466.0 ; Unspecified arthropathy, site unspecified 716.90 and Chronic pain disorder 338.4 [facility] [id number] [address] June, [facility] [id number] [address] June, [facility] [id number] [address] June, [facility] [id number] [address] June, [facility] [id number] [address] May, [facility] [address] [id number] [address] May, [facility] [address] [id number] [address] May, [facility] [address] [id number] [address] Apr, [facility] [id number] [address] Apr, [facility] [address] [id number] [address] Apr, [facility] [id number] [address] 12 Apr, 2014 [facility] [place] [facility] [address] [id number] [place] [address] Apr, 2014 [facility] [place] [facility] [address] [id number] [place] [address] 10 Apr, 2014 [facility] [place] [facility] [address] [facility] [id number] [place] [address] Apr, 2014 [facility] [place] [facility] [address] [id number] [place] [address] Apr, [facility] [place] [facility] [address] [id number] [place] [address] 24 Mar, 2014 [facility] [place] [facility] [address] [facility] [id number] [place] [address] 24 Mar, 2014 [facility] [place] [facility] [address] [facility] [id number] [place] [address] 17 Mar, 2014 [facility] [place] [facility] [address] [facility] [id number] [place] [address] 17 Mar, 2014 [facility] [place] [facility] [address] [facility] [id number] [place] [address] 17 Mar, 2014 [facility] [place] [facility] [address] [facility] [id number] [place] [address] 17 Mar, 2014 [facility] [place] [facility] [address] [facility] [id number] [place] [address] 13 Mar, 2014 [facility] [place] [facility] [address] [facility] [id number] [place] [address] 13 Mar, 2014 [facility] [place] [facility] [address] [facility] [id number] [place] [address] 13 Mar, 2014 [facility] [place] [facility] [address] [facility] [id number] [place] [address] 13 Mar, 2014 [facility] [place] [facility] [address] [facility] [id number] [place] [address] Mar, [facility] [place] [facility] [address] [id number] [place] [address] Mar, [facility] [place] [facility] [address] [id number] [place] [address] Mar, [facility] [place] [facility] [address] [id number] [place] [address] Mar, [facility] [place] [facility] [address] [id number] [place] [address] Mar, [facility] [place] [facility] [address] [id number] [place] [address] Feb, [facility] [place] [facility] [address] [id number] [place] [address] Feb, [facility] [place] [facility] [address] [id number] [place] [address] Feb, [facility] [place] [facility] [address] [id number] [place] [address] Feb, [facility] [place] [facility] [address] [id number] [place] [address] Feb, [facility] [place] [facility] [address] [id number] [place] [address] Feb, [facility] [place] [facility] [address] [id number] [place] [address] Feb, [facility] [place] [facility] [address] [id number], [place] [address] Feb, [facility] [place] [facility] [address] [id number] [place] [address] Feb, [facility] [place] [facility] [address] [id number] [place] [address] Feb, [facility] [place] [facility] [address] [id number] [place] [address] Feb, [facility] [place] [facility] [address] [id number] [place] [address] Jan, [facility] [address] [id number] [place] [address] Jan, [facility] [address] [id number] [place] [address] 15 Jan, 2014 [facility] [address] [id number] [place] [address] 15 Jan, 2014 [facility] [address] [id number] [place] [address] 15 Jan, 2014 [facility] [address] [id number] [place] [address] Jan, [facility] [address] [id number] [place] [address] Jan, [facility] [address] [id number] [place] [address] Jan, [facility] [address] [id number] [place] [address] Jan, [facility] [address] [id number] [place] [address] Jan, [facility] [address] [id number] [place] [address] Jan, [facility] [place] [facility] [address] [id number] [place] [address] Jan, [facility] [place] [facility] [address] [id number] [place] [address] Jan, [facility] [place] [facility] [address] [id number] [place] [address] Jan, [facility] [place] [facility] [address] [id number] [place] [address] Jan, [facility] [place] [facility] [address] [id number] [place] [address] Dec, [facility] [place] [facility] [address] [id number] [place] [address] Dec, [facility] [place] [facility] [address] [id number] [place] [address] Dec, [facility] [place] [facility] [address] [id number] [place] [address] Dec, [facility] [place] [facility] [address] [id number] [place] [address] Dec, [facility] [place] [facility] [address] [id number] [place] [address] Dec, [facility] [place] [facility] [address] [id number] [place] [address] Dec, [facility] [place] [facility] [address] [id number] [place] [address] Dec, [facility] [place] [facility] [address] [id number] [place] [address] Dec, [facility] [place] [facility] [address] [id number] [place] [address] Dec, [facility] [place] [facility] [address] [id number] [place] [address] Dec, [facility] [place] [facility] [address] [id number] [place] [address] Dec, [facility] [place] [facility] [address] [id number], [place] [address] Dec, [facility] [place] [facility] [address] [id number] [place] [address] Dec, [facility] [place] [facility] [address] [id number] [place] [address] Dec, [facility] [place] [facility] [address] [id number], [place] [address] Dec, [facility] [place] [facility] [address] [id number], [place] [address] Dec, [facility] [place] [facility] [address] [id number] [place] [address] Dec, [facility] [place] [facility] [address] [id number] [place] [address] Dec, [facility] [place] [facility] [address] [id number] [place] [address] Dec, [facility] [place] [facility] [address] [id number] [place] [address] Nov, [facility] [place] [facility] [address] [id number] [place] [address] Nov, [facility] [place] [facility] [address] [id number] [place] [address] Nov, [facility] [place] [facility] [address] [id number] [place] [address] Nov, [facility] [place] [facility] [address] [id number] [place] [address] 15 Nov, 2013 [facility] [place] [facility] [address] [id number] [place] [address] Nov, [facility] [place] [facility] [address] [id number] [place] [address] Nov, [facility] [place] [facility] [address] [id number], [place] [address] Nov, [facility] [place] [facility] [address] [id number], [place] [address] Nov, [facility] [place] [facility] [address] [id number] [place] [address] Nov, [facility] [place] [facility] [address] [id number], [place] [address] Nov, [facility] [place] [facility] [address] [id number] [place] [address] Nov, [facility] [place] [facility] [address] [id number] [place] [address] 22 Oct, 2013 [facility] [place] [facility] [address] [id number] [place] [address] 22 Oct, 2013 [facility] [place] [facility] [address] [id number] [place] [address] 19 Oct, 2013 [facility] [place] [facility] [address] [id number] [place] [address] 19 Oct, 2013 [facility] [place] [facility] [address] [id number] [place] [address] 17 Oct, 2013 [facility] [place] [facility] [address] [id number] [place] [address] 17 Oct, 2013 [facility] [place] [facility] [address] [id number] [place] [address] 16 Oct, 2013 [facility] [place] [facility] [address] [id number] [place] [address] 16 Oct, 2013 [facility] [place] [facility] [address] [id number] [place] [address] Oct, 2013 [facility] [place] [facility] [address] [id number] [place] [address] Oct, 2013 [facility] [place] [facility] [address] [id number] [place] [address] Sep, [facility] [place] [facility] [address] [id number] [place] [address] Sep, [facility] [place] [facility] [address] [id number] [place] [address] Sep, [facility] [place] [facility] [address] [id number] [place] [address] Sep, [facility] [place] [facility] [address] [id number] [place] [address] Sep, [facility] [place] [facility] [address] [id number] [place] [address] Sep, [facility] [place] [facility] [address] [id number] [place] [address] Sep, [facility] [place] [facility] [address] [id number] [place] [address] Sep, [facility] [place] [facility] [address] [id number] [place] [address] Sep, [facility] [place] [facility] [address] [id number] [place] [address] Sep, [facility] [place] [facility] [address] [id number] [place] [address] Sep, [facility] [place] [facility] [address] [id number] [place] [address] Sep, [facility] [place] [facility] [address] [id number] [place] [address] Sep, [facility] [place] [facility] [address] [id number] [place] [address] Sep, [facility] [place] [facility] [address] [id number] [place] [address] Aug, [facility] [place] [facility] [address] [id number] [place] [address] Aug, [facility] [place] [facility] [address] [id number] [place] [address] Aug, [facility] [place] [facility] [address] [id number] [place] [address] Aug, [facility] [place] [facility] [address] [id number] [place] [address] Aug, [facility] [place] [facility] [address] [id number] [place] [address] Aug, [facility] [place] [facility] [address] [id number] [place] [address] Aug, [facility] [place] [facility] [address] [id number] [place] [address] Aug, [facility] [place] [facility] [address] [id number] [place] [address] Aug, [facility] [place] [facility] [address] [id number] [place] [address] Aug, [facility] [place] [facility] [address] [id number] [place] [address] Aug, [facility] [place] [facility] [address] [id number] [place] [address] Jul, [facility] [place] [facility] [address] [id number] [place] [address] Jul, [facility] [place] [facility] [address] [id number] [place] [address] Jul, [facility] [place] [facility] [address] [id number] [place] [address] Jul, [facility] [place] [facility] [address] [id number] [place] [address] Jul, [facility] [place] [facility] [address] [id number] [place] [address] Jul, [facility] [place] [facility] [address] [id number] [place] [address] Jul, [facility] [place] [facility] [address] [id number] [place] [address] Jul, [facility] [place] [facility] [address] [id number] [place] [address] Jul, [facility] [place] [facility] [address] [id number] [place] [address] Jul, [facility] [place] [facility] [address] [id number] [place] [address] June, [facility] [place] [facility] [address] [id number] [place] [address] June, [facility] [place] [facility] [address] [id number] [place] [address] June, [facility] [address] [id number] [place] [address] June, [facility] [place] [facility] [address] [id number] [place] [address] June, [facility] [place] [facility] [address] [id number] [place] [address] June, [facility] [address] [id number] [place] [address] June, [facility] [place] [facility] [address] [id number] [place] [address] June, [facility] [address] [id number] [place] [address] June, [facility] [address] [id number] [place] [address] June, [facility] [address] [id number] [place] [address] June, [facility] [place] [facility] [address] [id number] [place] [address] June, [facility] [place] [facility] [address] [id number] [place] [address] June, [facility] [place] [facility] [address] [id number] [place] [address] June, [facility] [place] [facility] [address] [id number] [place] [address] June, [facility] [place] [facility] [address] [id number] [place] [address] June, [facility] [place] [facility] [address] [id number] [place] [address] June, [facility] [place] [facility] [address] [id number] [place] [address] May, [facility] [place] [facility] [address] [id number] [place] [address] May, [facility] [place] [facility] [address] [id number] [place] [address] May, [facility] [place] [facility] [address] [id number] [place] [address] May, [facility] [place] [facility] [address] [id number] [place] [address] May, [facility] [place] [facility] [address] [id number] [place] [address] May, [facility] [place] [facility] [address] [id number] [place] [address] May, [facility] [place] [facility] [address] [id number] [place] [address] May, [facility] [place] [facility] [address] [id number] [place] [address] May, [facility] [place] [facility] [address] [id number] [place] [address] May, [facility] [place] [facility] [address] [id number] [place] [address] Apr, [facility] [place] [facility] [address] [id number] [place] [address] Apr, [facility] [place] [facility] [address] [id number] [place] [address] Apr, [facility] [place] [facility] [address] [id number] [place] [address] Apr, [facility] [place] [facility] [address] [id number] [place] [address] Apr, [facility] [place] [facility] [address] [id number] [place] [address] Apr, [facility] [place] [facility] [address] [id number] [place] [address] 13 Apr, 2013 [facility] [place] [facility] [address] [id number] [place] [address] 13 Apr, 2013 [facility] [place] [facility] [address] [id number] [place] [address] 07 Apr, 2013 [facility] [place] [facility] [address] [id number] [place] [address] Apr, [facility] [place] [facility] [address] [id number] [place] [address] Mar, [facility] [place] [facility] [address] [id number] [place] [address] Mar, [facility] [place] [facility] [address] [facility] [id number] [place] [address] Mar, [facility] [place] [facility] [address] [id number] [place] [address] Mar, [facility] [place] [facility] [address] [id number] [place] [address] Mar, [facility] [place] [facility] [address] [facility] [id number] [place] [address] Mar, [facility] [place] [facility] [address] [facility] [id number] [place] [address] Mar, [facility] [place] [facility] [address] [facility] [id number] [place] [address] Mar, [facility] [place] [facility] [address] [facility] [id number] [place] [address] Mar, [facility] [place] [facility] [address] [id number] [place] [address] Mar, [facility] [place] [facility] [address] [facility] [id number] [place] [address] 07 Mar, 2013 [facility] [place] [facility] [address] [facility] [id number] [place] [address] Mar, [facility] [address] [id number] [place] [address] Mar, [facility] [place] [facility] [address] [id number] [place] [address] Feb, [facility] [place] [facility] [address] [id number] [place] [address] Feb, [facility] [place] [facility] [address] [id number] [place] [address] Feb, [facility] [place] [facility] [address] [id number] [place] [address] Feb, [facility] [place] [facility] [address] [id number] [place] [address] Feb, [facility] [place] [facility] [address] [id number] [place] [address] Feb, [facility] [place] [facility] [address] [id number] [place] [address] Feb, [facility] [place] [facility] [address] [id number] [place] [address] Feb, [facility] [place] [facility] [address] [id number] [place] [address] Feb, [facility] [place] [facility] [address] [id number] [place] [address] Feb, [facility] [place] [facility] [address] [id number] [place] [address] Jan, [facility] [place] [facility] [address] [id number] [place] [address] Jan, [facility] [place] [facility] [address] [id number] [place] [address] Jan, [facility] [place] [facility] [address] [id number] [place] [address] Jan, [facility] [place] [facility] [address] [id number] [place] [address] Jan, [facility] [address] [id number] [place] [address] Jan, [facility] [place] [facility] [address] [id number] [place] [address] Jan, [facility] [address] [id number] [place] [address] Jan, [facility] [place] [facility] [address] [id number] [place] [address] Jan, [facility] [address] [id number] [place] [address] Jan, [facility] [place] [facility] [address] [id number] [place] [address] Jan, [facility] [place] [facility] [address] [id number] [place] [address] Jan, [facility] [address] [id number] [place] [address] Jan, [facility] [place] [facility] [address] [id number] [place] [address] Jan, [facility] [place] [facility] [address] [id number] [place] [address] Jan, [facility] [place] [facility] [address] [id number] [place] [address] Jan, [facility] [place] [facility] [address] [id number] [place] [address] Dec, [facility] [place] [facility] [address] [id number] [place] [address] Dec, [facility] [facility] [address] [id number] [place] [address] Dec, [facility] [place] [facility] [address] [id number] [place] [address] Dec, [facility] [place] [facility] [address] [id number] [place] [address] 15 Dec, 2012 [facility] [place] [facility] [address] [id number] [place] [address] 15 Dec, 2012 [facility] [place] [facility] [address] [id number] [place] [address] Dec, [facility] [place] [facility] [address] [id number] [place] [address] Dec, [facility] [place] [facility] [address] [id number] [place] [address] Dec, [facility] [place] [facility] [address] [id number] [place] [address] Dec, [facility] [place] [facility] [address] [id number] [place] [address] Nov, [facility] [place] [facility] [address] [id number], [place] [address] 30 Nov, 2012 [facility] [place] [facility] [address] [id number] [place] [address] Nov, [facility] [place] [facility] [address] [id number], [place] [address] Nov, [facility] [place] [facility] [address] [id number], [place] [address] 18 Nov, 2012 [facility] [address] [id number], [place] [address] 18 Nov, 2012 [facility] [place] [address] [id number] [place] [address] 14 Nov, 2012 [facility] [facility] [address] [id number], [place] [address] 14 Nov, 2012 [facility] [address] [id number], [place] [address] 09 Nov, 2012 [facility] [address] [id number] [place] [address] 09 Nov, 2012 [facility] [address] [id number] [place] [address] 07 Nov, 2012 [facility] [facility] [address] [id number] [place] [address] 05 Nov, 2012 [facility] [place] [address] [id number] [place] [address] 20 Oct, 2012 [facility] [place] [facility] [address] [id number] [place] [address] 20 Oct, 2012 [facility] [address] [id number] [place] [address] 19 Oct, 2012 [facility] [place] [address] [id number] [place] [address] 18 Oct, 2012 [facility] [address] [id number] [place] [address] 13 Oct, 2012 [facility] [address] [id number] [place] [address] 05 Oct, 2012 [facility] [address] [id number] [place] [address] 04 Oct, 2012 [facility] [address] [id number] [place] [address] 28 Sep, 2012 [facility] [address] [id number] [place] [address] Sep, [facility] [address] [id number] [place] [address] Sep, [facility] [address] [id number] [place] [address] Sep, [facility] [address] [id number] [place] [address] Sep, [facility] [address] [id number] [place] [address] 08 Sep, 2012 [facility] [address] [id number] [place] [address] Sep, [facility] [address] [id number] [place] [address] Aug, [facility] [address] [id number] [place] [address] Aug, [facility] [address] [id number] [place] [address] Aug, [facility] [address] [id number] [place] [address] Aug, [facility] [address] [id number] [place] [address] Aug, [facility] [address] [id number] [place] [address] Aug, [facility] [address] [id number] [place] [address] Aug, [facility] [address] [id number] [place] [address] Aug, [facility] [address] [id number] [place] [address] Aug, [facility] [address] [id number] [place] [address] Jul, [facility] [address] [id number] [place] [address] Jul, [facility] [address] [id number] [place] [address] Jul, [facility] [address] [id number] [place] [address] Jul, [facility] [address] [id number] [place] [address] Jul, [facility] [address] [id number] [place] [address] Jul, [facility] [address] [id number] [place] [address] Jul, [facility] [address] [id number] [place] [address] June, [facility] [address] [id number] [place] [address] June, [facility] [address] [id number] [place] [address] June, [facility] [address] [id number] [place] [address] June, [facility] [address] [id number] [place] [address] June, [facility] [address] [id number] [place] [address] June, [facility] [address] [id number] [place] [address] June, [facility] [address] [id number] [place] [address] June, [facility] [address] [id number] [place] [address] May, [facility] [address] [id number] [place] [address] May, [facility] [address] [id number] [place] [address] 16 May, 2012 [facility] [address] [id number] [place] [address] 15 May, 2012 [facility] [address] [id number] [place] [address] 08 May, 2012 [facility] [address] [id number] [place] [address] May, [facility] [address] [id number] [place] [address] 04 May, 2012 [facility] [address] [id number] [place] [address] May, [facility] [address] [id number] [place] [address] May, [facility] [address] [id number] [place] [address] May, [facility] [address] [id number] [place] [address] Apr, [facility] [address] [id number] [place] [address] 19 Apr, 2012 [facility] [address] [id number] [place] [address] 18 Apr, 2012 [facility] [address] [id number] [place] [address] 15 Apr, 2012 [facility] [address] [id number] [place] [address] 13 Apr, 2012 [facility] [address] [id number] [place] [address] 05 Apr, 2012 [facility] [address] [facility] [id number] [place] [address] 04 Apr, 2012 [facility] [address] [id number] [place] [address] 28 Mar, 2012 [facility] [address] [id number] [place] [address] Mar, [facility] [address] [id number] [place] [address] Mar, [facility] [address] [id number] [place] [address] Mar, [facility] [address] [id number] [place] [address] Mar, [facility] [address] [id number] [place] [address] 07 Mar, 2012 [facility] [address] [id number] [place] [address] 06 Mar, 2012 [facility] [address] [id number] [place] [address] 05 Mar, 2012 [facility] [address] [id number] [place] [address] Mar, [facility] [address] [id number] [place] [address] Feb, [facility] [address] [id number] [place] [address] Feb, [facility] [address] [id number] [place] [address] Feb, [facility] [address] [id number] [place] [address] Feb, [facility] [address] [id number] [place] [address] Feb, [facility] [address] [id number] [place] [address] Feb, [facility] [address] [id number] [place] [address] Feb, [facility] [address] [id number] [place] [address] Jan, [facility] [address] [id number] [place] [address] Jan, [facility] [address] [id number] [place] [address] Jan, [facility] [address] [id number] [place] [address] Jan, [facility] [address] [id number] [place] [address] 27 Jan, 2012 [facility] [address] [id number] [place] [address] 27 Jan, 2012 [facility] [address] [id number] [place] [address] 14 Jan, 2012 [facility] [address] [id number] [place] [address] Jan, [facility] [address] [id number] [place] [address] 10 Jan, 2012 [facility] [address] [id number] [place] [address] Jan, [facility] [address] [id number] [place] [address] 04 Jan, 2012 [facility] [address] [id number] [place] [address] Jan, [facility] [address] [id number] [place] [address] Jan, [facility] [address] [id number] [place] [address] Dec, [facility] [address] [id number] [place] [address] 29 Dec, 2011 [facility] [address] [id number] [place] [address] Dec, [facility] [address] [id number] [place] [address] Dec, [facility] [address] [id number] [place] [address] Dec, [facility] [address] [id number] [place] [address] Dec, [facility] [address] [id number] [place] [address] Dec, [facility] [address] [id number] [place] [address] Dec, [facility] [address] [id number] [place] [address] Dec, [facility] [address] [id number] [place] [address] Dec, [facility] [address] [id number] [place] [address] Dec, [facility] [place] [address] [id number] [place] [address] Dec, [facility] [place] [facility] [address] [id number] [place] [address] Dec, [facility] [place] [facility] [address] [id number] [place] [address] Dec, [facility] [address] [id number], [place] [address] Nov, [facility] [place] [facility] [address] [id number] [place] [address] Nov, [facility] [address] [facility] [id number], [place] [address] Nov, [facility] [address] [id number], [place] [address] Nov, [facility] [address] [id number], [place] [address] Nov, [facility] [address] [id number], [place] [address] Nov, [facility] [address] [id number], [place] [address] Nov, [facility] [address] [facility] [id number], [place] [address] Nov, [facility] [address] [id number], [place] [address] Nov, [facility] [place] [facility] [address] [id number] [place] [address] Nov, [facility] [place] [facility] [address] [id number] [place] [address] Nov, [facility] [place] [facility] [address] [facility] [id number] [place] [address] Nov, [facility] [place] [facility] [address] [id number] [place] [address] Nov, [facility] [place] [facility] [address] [id number] [place] [address] 25 Oct, 2011 [facility] [address] [id number] [place] [address] 25 Oct, 2011 [facility] [address] [facility] [id number] [place] [address] 24 Oct, 2011 [facility] [facility] [address] [id number] [place] [address] 17 Oct, 2011 [facility] [place] [facility] [address] [id number] [place] [address] 14 Oct, 2011 [facility] [place] [facility] [address] [facility] [id number] [place] [address] 11 Oct, 2011 [facility] [place] [facility] [address] [id number] [place] [address] 06 Oct, 2011 [facility] [place] [facility] [address] [id number], [place] [address] Sep, [facility] [place] [facility] [address] [id number] [place] [address] Sep, [facility] [place] [facility] [address] [facility] [id number], [place] [address] Sep, [facility] [facility] [address] [facility] [id number] [place] [address] Sep, [facility] [place] [facility] [address] [facility] [id number] [place] [address] Aug, IMMUNIZATIONS No Known Immunizations SOCIAL HISTORY Never Assessed REASON FOR VISIT EMR-[facility] PLAN OF CARE VITAL SIGNS MEDICATIONS Unknown [...]
--- OUTSIDE RECORDS SUMMARY | 2018-07-22 19:01 | XMS REPORT ---
Author Author Migration, Doctor Organization [facility] Address Unknown Phone Unavailable Care Team Providers Care Surgical Elastic Knitter Hand Frame Name Role Phone Migration, Doctor Unavailable Unavailable PROBLEMS Type Condition ICD9-CM Code CGI26-VY Code Onset Dates Condition Status SNOMED Code Problem Loss of weight 783.21 Active 090003000 Problem Unspecified arthropathy, site unspecified 716.90 Active 552167207 Problem Lumbago 724.2 Active 500515336 Problem Depressive disorder, not elsewhere classified 311 Active 26352954 Problem Other abnormal glucose 790.29 Active 985731612 Problem Anxiety state, unspecified 300.00 Active 002852236 Problem Chronic airway obstruction, not elsewhere classified 496 Active 25022849 Problem 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 935046217 Problem Unspecified essential hypertension 401.9 Active 01959249 Problem Migraine, unspecified without mention of intractable migraine without mention of status migrainosus 346.90 Active 64632426 ALLERGIES No Information ENCOUNTERS Encounter Location Date Diagnosis [facility] [address] [address] Mar, [facility] [address] [address] Feb, Arthropathy, unspecified M12.9 [facility] [id number] [place] [address] Feb, [facility] [id number] [place] [address] Jan, [facility] [address] [address] Jan, [facility] [address] [address] Jan, [facility] [address] [address] Oct, 2014 [facility] [place] [facility] [address] [id number] [place] [address] 10 Oct, 2014 Lumbago 724.2 [facility] [place] [facility] [address] [id number] [place] [address] Oct, 2014 [facility] [place] [facility] [address] [id number] [place] [address] 08 Oct, 2014 [facility] [place] [facility] [address] [id number] [place] [address] 08 Oct, 2014 [facility] [place] [facility] [address] [id number] [place] [address] Oct, 2014 [facility] [place] [facility] [address] [id number] [place] [address] Oct, 2014 [facility] [place] [facility] [address] [id number] [place] [address] Oct, 2014 [facility] [place] [facility] [address] [id number] [place] [address] Sep, 2014 [facility] [place] [facility] [address] [id number] [place] [address] Sep, 2014 [facility] [place] [facility] [address] [id number] [place] [address] Aug, 2014 [facility] [place] [facility] [address] [id number] [place] [address] Aug, 2014 [facility] [place] [facility] [address] [id number] [place] [address] Aug, 2014 [facility] [place] [facility] [address] [id number] [place] [address] Aug, 2014 [facility] [place] [facility] [address] [id number] [place] [address] Aug, 2014 [facility] [place] [facility] [address] [id number] [place] [address] Aug2014 [facility] [place] [facility] [address] [facility] [id number] [address] Jul, Unspecified arthropathy, site unspecified 716.90 [facility] [address] [address] Jul, [facility] [address] [address] Jul, [facility] [address] [address] June, Acute bronchitis 466.0 ; Unspecified arthropathy, site unspecified 716.90 and Chronic pain disorder 338.4 [facility] [address] [address] June, [facility] [address] [address] June, [facility] [address] [address] June, [facility] [address] [address] June, [facility] [address] [address] May, [facility] [id number] [address] May, [facility] [address] [id number] [address] May, [facility] [address] [id number] [address] Apr, [facility] [address]65[address] [address] Apr, [facility] [address] [id number] [address] Apr, [facility] [address] [address] 12 Apr, 2014 [facility] [place] [facility] [address] [id number] [place] [address] Apr, 2014 [facility] [place] [facility] [address] [id number] [place] [address] 10 Apr, 2014 [facility] [place] [facility] [address] [facility] [id number] [place] [address] Apr, 2014 [facility] [place] [facility] [address] [id number] [place] [address] Apr, [facility] [place] [facility] [address] [id number] [place] [address] 24 Mar, 2014 [facility] [place] [facility] [address] [facility] [id number] [place] [address] 24 Mar, 2014 [facility] [place] [facility] [address] [facility] [id number] [place] [address] 17 Mar, 2014 [facility] [place] [facility] [address] [facility] [id number] [place] [address] 17 Mar, 2014 [facility] [place] [facility] [address] [facility] [id number] [place] [address] 17 Mar, 2014 [facility] [place] [facility] [address] [facility] [id number] [place] [address] 17 Mar, 2014 [facility] [place] [facility] [address] [facility] [id number] [place] [address] 13 Mar, 2014 [facility] [place] [facility] [address] [facility] [id number] [place] [address] 13 Mar, 2014 [facility] [place] [facility] [address] [facility] [id number] [place] [address] 13 Mar, 2014 [facility] [place] [facility] [address] [facility] [id number] [place] [address] 13 Mar, 2014 [facility] [place] [facility] [address] [facility] [id number] [place] [address] Mar, [facility] [place] [facility] [address] [id number] [place] [address] Mar, [facility] [place] [facility] [address] [id number] [place] [address] Mar, [facility] [place] [facility] [address] [id number] [place] [address] Mar, [facility] [place] [facility] [address] [id number] [place] [address] Mar, [facility] [place] [facility] [address] [id number] [place] [address] Feb, [facility] [place] [facility] [address] [id number] [place] [address] Feb, [facility] [place] [facility] [address] [id number] [place] [address] Feb, [facility] [place] [facility] [address] [id number] [place] [address] Feb, [facility] [place] [facility] [address] [id number] [place] [address] Feb, [facility] [place] [facility] [address] [id number] [place] [address] Feb, [facility] [place] [facility] [address] [id number] [place] [address] Feb, [facility] [place] [facility] [address] [id number] [address] Feb, [facility] [place] [facility] [address] [id number] [place] [address] Feb, [facility] [place] [facility] [address] [id number] [place] [address] Feb, [facility] [place] [facility] [address] [id number] [place] [address] Feb, [facility] [place] [facility] [address] [id number] [place] [address] Jan, [facility] [address] [id number] [place] [address] Jan, [facility] [address] [id number] [place] [address] 15 Jan, 2014 [facility] [address] [id number] [place] [address] 15 Jan, 2014 [facility] [address] [id number] [place] [address] 15 Jan, 2014 [facility] [address] [id number] [place] [address] Jan, [facility] [address] [id number] [place] [address] Jan, [facility] [address] [id number] [place] [address] Jan, [facility] [address] [id number] [place] [address] Jan, [facility] [address] [id number] [place] [address] Jan, [facility] [address] [id number] [place] [address] Jan, [facility] [place] [facility] [address] [id number] [place] [address] Jan, [facility] [place] [facility] [address] [id number] [place] [address] Jan, [facility] [place] [facility] [address] [id number] [place] [address] Jan, [facility] [place] [facility] [address] [id number] [place] [address] Jan, [facility] [place] [facility] [address] [id number] [place] [address] Dec, [facility] [place] [facility] [address] [id number] [place] [address] Dec, [facility] [place] [facility] [address] [id number] [place] [address] Dec, [facility] [place] [facility] [address] [id number] [place] [address] Dec, [facility] [place] [facility] [address] [id number] [place] [address] Dec, [facility] [place] [facility] [address] [id number] [place] [address] Dec, [facility] [place] [facility] [address] [id number] [place] [address] Dec, [facility] [place] [facility] [address] [id number] [place] [address] Dec, [facility] [place] [facility] [address] [id number] [place] [address] Dec, [facility] [place] [facility] [address] [id number] [place] [address] Dec, [facility] [place] [facility] [address] [id number] [place] [address] Dec, [facility] [place] [facility] [address] [id number] [place] [address] Dec, [facility] [place] [facility] [address] [id number] [address] Dec, [facility] [place] [facility] [address] [id number] [place] [address] Dec, [facility] [place] [facility] [address] [id number] [place] [address] Dec, [facility] [place] [facility] [address] [id number] [address] Dec, [facility] [place] [facility] [address] [id number] [address] Dec, [facility] [place] [facility] [address] [id number] [place] [address] Dec, [facility] [place] [facility] [address] [id number] [place] [address] Dec, [facility] [place] [facility] [address] [id number] [place] [address] Dec, [facility] [place] [facility] [address] [id number] [place] [address] Nov, [facility] [place] [facility] [address] [id number] [place] [address] Nov, [facility] [place] [facility] [address] [id number] [place] [address] Nov, [facility] [place] [facility] [address] [id number] [place] [address] Nov, [facility] [place] [facility] [address] [id number] [place] [address] 15 Nov, 2013 [facility] [place] [facility] [address] [id number] [place] [address] Nov, [facility] [place] [facility] [address] [id number] [place] [address] Nov, [facility] [place] [facility] [address] [id number] [address] Nov, [facility] [place] [facility] [address] [id number] [address] Nov, [facility] [place] [facility] [address] [id number] [place] [address] Nov, [facility] [place] [facility] [address] [id number] [address] Nov, [facility] [place] [facility] [address] [id number] [place] [address] Nov, [facility] [place] [facility] [address] [id number] [place] [address] 22 Oct, 2013 [facility] [place] [facility] [address] [id number] [place] [address] 22 Oct, 2013 [facility] [place] [facility] [address] [id number] [place] [address] 19 Oct, 2013 [facility] [place] [facility] [address] [id number] [place] [address] 19 Oct, 2013 [facility] [place] [facility] [address] [id number] [place] [address] 17 Oct, 2013 [facility] [place] [facility] [address] [id number] [place] [address] 17 Oct, 2013 [facility] [place] [facility] [address] [id number] [place] [address] 16 Oct, 2013 [facility] [place] [facility] [address] [id number] [place] [address] 16 Oct, 2013 [facility] [place] [facility] [address] [id number] [place] [address] Oct, 2013 [facility] [place] [facility] [address] [id number] [place] [address] Oct, 2013 [facility] [place] [facility] [address] [id number] [place] [address] Sep, [facility] [place] [facility] [address] [id number] [place] [address] Sep, [facility] [place] [facility] [address] [id number] [place] [address] Sep, [facility] [place] [facility] [address] [id number] [place] [address] Sep, [facility] [place] [facility] [address] [id number] [place] [address] Sep, [facility] [place] [facility] [address] [id number] [place] [address] Sep, [facility] [place] [facility] [address] [id number] [place] [address] Sep, [facility] [place] [facility] [address] [id number] [place] [address] Sep, [facility] [place] [facility] [address] [id number] [place] [address] Sep, [facility] [place] [facility] [address] [id number] [place] [address] Sep, [facility] [place] [facility] [address] [id number] [place] [address] Sep, [facility] [place] [facility] [address] [id number] [place] [address] Sep, [facility] [place] [facility] [address] [id number] [place] [address] Sep, [facility] [place] [facility] [address] [id number] [place] [address] Sep, [facility] [place] [facility] [address] [id number] [place] [address] Aug, [facility] [place] [facility] [address] [id number] [place] [address] Aug, [facility] [place] [facility] [address] [id number] [place] [address] Aug, [facility] [place] [facility] [address] [id number] [place] [address] Aug, [facility] [place] [facility] [address] [id number] [place] [address] Aug, [facility] [place] [facility] [address] [id number] [place] [address] Aug, [facility] [place] [facility] [address] [id number] [place] [address] Aug, [facility] [place] [facility] [address] [id number] [place] [address] Aug, [facility] [place] [facility] [address] [id number] [place] [address] Aug, [facility] [place] [facility] [address] [id number] [place] [address] Aug, [facility] [place] [facility] [address] [id number] [place] [address] Aug, [facility] [place] [facility] [address] [id number] [place] [address] Jul, [facility] [place] [facility] [address] [id number] [place] [address] Jul, [facility] [place] [facility] [address] [id number] [place] [address] Jul, [facility] [place] [facility] [address] [id number] [place] [address] Jul, [facility] [place] [facility] [address] [id number] [place] [address] Jul, [facility] [place] [facility] [address] [id number] [place] [address] Jul, [facility] [place] [facility] [address] [id number] [place] [address] Jul, [facility] [place] [facility] [address] [id number] [place] [address] Jul, [facility] [place] [facility] [address] [id number] [place] [address] Jul, [facility] [place] [facility] [address] [id number] [place] [address] Jul, [facility] [place] [facility] [address] [id number] [place] [address] June, [facility] [place] [facility] [address] [id number] [place] [address] June, [facility] [place] [facility] [address] [id number] [place] [address] June, [facility] [address] [id number] [place] [address] June, [facility] [place] [facility] [address] [id number] [place] [address] June, [facility] [place] [facility] [address] [id number] [place] [address] June, [facility] [address] [id number] [place] [address] June, [facility] [place] [facility] [address] [id number] [place] [address] June, [facility] [address] [id number] [place] [address] June, [facility] [address] [id number] [place] [address] June, [facility] [address] [id number] [place] [address] June, [facility] [place] [facility] [address] [id number] [place] [address] June, [facility] [place] [facility] [address] [id number] [place] [address] June, [facility] [place] [facility] [address] [id number] [place] [address] June, [facility] [place] [facility] [address] [id number] [place] [address] June, [facility] [place] [facility] [address] [id number] [place] [address] June, [facility] [place] [facility] [address] [id number] [place] [address] June, [facility] [place] [facility] [address] [id number] [place] [address] May, [facility] [place] [facility] [address] [id number] [place] [address] May, [facility] [place] [facility] [address] [id number] [place] [address] May, [facility] [place] [facility] [address] [id number] [place] [address] May, [facility] [place] [facility] [address] [id number] [place] [address] May, [facility] [place] [facility] [address] [id number] [place] [address] May, [facility] [place] [facility] [address] [id number] [place] [address] May, [facility] [place] [facility] [address] [id number] [place] [address] May, [facility] [place] [facility] [address] [id number] [place] [address] May, [facility] [place] [facility] [address] [id number] [place] [address] May, [facility] [place] [facility] [address] [id number] [place] [address] Apr, [facility] [place] [facility] [address] [id number] [place] [address] Apr, [facility] [place] [facility] [address] [id number] [place] [address] Apr, [facility] [place] [facility] [address] [id number] [place] [address] Apr, [facility] [place] [facility] [address] [id number] [place] [address] Apr, [facility] [place] [facility] [address] [id number] [place] [address] Apr, [facility] [place] [facility] [address] [id number] [place] [address] 13 Apr, 2013 [facility] [place] [facility] [address] [id number] [place] [address] 13 Apr, 2013 [facility] [place] [facility] [address] [id number] [place] [address] 07 Apr, 2013 [facility] [place] [facility] [address] [id number] [place] [address] Apr, [facility] [place] [facility] [address] [id number] [place] [address] Mar, [facility] [place] [facility] [address] [id number] [place] [address] Mar, [facility] [place] [facility] [address] [facility] [id number] [place] [address] Mar, [facility] [place] [facility] [address] [id number] [place] [address] Mar, [facility] [place] [facility] [address] [id number] [place] [address] Mar, [facility] [place] [facility] [address] [facility] [id number] [place] [address] Mar, [facility] [place] [facility] [address] [facility] [id number] [place] [address] Mar, [facility] [place] [facility] [address] [facility] [id number] [place] [address] Mar, [facility] [place] [facility] [address] [facility] [id number] [place] [address] Mar, [facility] [place] [facility] [address] [id number] [place] [address] Mar, [facility] [place] [facility] [address] [facility] [id number] [place] [address] 07 Mar, 2013 [facility] [place] [facility] [address] [facility] [id number] [place] [address] Mar, [facility] [address] [id number] [place] [address] Mar, [facility] [place] [facility] [address] [id number] [place] [address] Feb, [facility] [place] [facility] [address] [id number] [place] [address] Feb, [facility] [place] [facility] [address] [id number] [place] [address] Feb, [facility] [place] [facility] [address] [id number] [place] [address] Feb, [facility] [place] [facility] [address] [id number] [place] [address] Feb, [facility] [place] [facility] [address] [id number] [place] [address] Feb, [facility] [place] [facility] [address] [id number] [place] [address] Feb, [facility] [place] [facility] [address] [id number] [place] [address] Feb, [facility] [place] [facility] [address] [id number] [place] [address] Feb, [facility] [place] [facility] [address] [id number] [place] [address] Feb, [facility] [place] [facility] [address] [id number] [place] [address] Jan, [facility] [place] [facility] [address] [id number] [place] [address] Jan, [facility] [place] [facility] [address] [id number] [place] [address] Jan, [facility] [place] [facility] [address] [id number] [place] [address] Jan, [facility] [place] [facility] [address] [id number] [place] [address] Jan, [facility] [address] [id number] [place] [address] Jan, [facility] [place] [facility] [address] [id number] [place] [address] Jan, [facility] [address] [id number] [place] [address] Jan, [facility] [place] [facility] [address] [id number] [place] [address] Jan, [facility] [address] [id number] [place] [address] Jan, [facility] [place] [facility] [address] [id number] [place] [address] Jan, [facility] [place] [facility] [address] [id number] [place] [address] Jan, [facility] [address] [id number] [place] [address] Jan, [facility] [place] [facility] [address] [id number] [place] [address] Jan, [facility] [place] [facility] [address] [id number] [place] [address] Jan, [facility] [place] [facility] [address] [id number] [place] [address] Jan, [facility] [place] [facility] [address] [id number] [place] [address] Dec, [facility] [place] [facility] [address] [id number] [place] [address] Dec, [facility] [place] [facility] [address] [id number] [place] [address] Dec, [facility] [place] [facility] [address] [id number] [place] [address] Dec, [facility] [place] [facility] [address] [id number] [place] [address] 15 Dec, 2012 [facility] [place] [facility] [address] [id number] [place] [address] 15 Dec, 2012 [facility] [place] [facility] [address] [id number] [place] [address] Dec, [facility] [place] [facility] [address] [id number] [place] [address] Dec, [facility] [place] [facility] [address] [id number] [place] [address] Dec, [facility] [place] [facility] [address] [id number] [place] [address] Dec, [facility] [place] [facility] [address] [id number] [place] [address] Nov, [facility] [place] [facility] [address] [id number] [address] 30 Nov, 2012 [facility] [place] [facility] [address] [id number] [place] [address] Nov, [facility] [place] [facility] [address] [id number] [address] Nov, [facility] [place] [facility] [address] [id number] [address] 18 Nov, 2012 [facility] [place] [facility] [address] [id number] [address] 18 Nov, 2012 [facility] [place] [facility] [address] [id number] [place] [address] 14 Nov, 2012 [facility] [place] [facility] [address] [id number] [address] 14 Nov, 2012 [facility] [place] [facility] [address] [id number] [address] 09 Nov, 2012 [facility] [place] [facility] [address] [id number] [place] [address] 09 Nov, 2012 [facility] [address] [id number] [place] [address] 07 Nov, 2012 [facility] [place] [facility] [address] [id number] [place] [address] 05 Nov, 2012 [facility] [place] [facility] [address] [id number] [place] [address] 20 Oct, 2012 [facility] [place] [facility] [address] [id number] [place] [address] 20 Oct, 2012 [facility] [place] [facility] [address] [id number] [place] [address] 19 Oct, 2012 [facility] [place] [facility] [address] [id number] [place] [address] 18 Oct, 2012 [facility] [address] [id number] [place] [address] 13 Oct, 2012 [facility] [place] [facility] [address] [id number] [place] [address] 05 Oct, 2012 [facility] [place] [facility] [address] [id number] [place] [address] 04 Oct, 2012 [facility] [place] [facility] [address] [id number] [place] [address] 28 Sep, 2012 [facility] [place] [facility] [address] [id number] [place] [address] Sep, [facility] [place] [facility] [address] [id number] [place] [address] Sep, [facility] [place] [facility] [address] [id number] [place] [address] Sep, [facility] [place] [facility] [address] [id number] [place] [address] Sep, [facility] [place] [facility] [address] [id number] [place] [address] 08 Sep, 2012 [facility] [place] [facility] [address] [id number] [place] [address] Sep, [facility] [place] [facility] [address] [id number] [place] [address] Aug, [facility] [place] [facility] [address] [id number] [place] [address] Aug, [facility] [place] [facility] [address] [id number] [place] [address] Aug, [facility] [place] [facility] [address] [id number] [place] [address] Aug, [facility] [place] [facility] [address] [id number] [place] [address] Aug, [facility] [place] [facility] [address] [id number] [place] [address] Aug, [facility] [place] [facility] [address] [id number] [place] [address] Aug, [facility] [place] [facility] [address] [id number] [place] [address] Aug, [facility] [place] [facility] [address] [id number] [place] [address] Aug, [facility] [place] [facility] [address] [id number] [place] [address] Jul, [facility] [place] [facility] [address] [id number] [place] [address] Jul, [facility] [place] [facility] [address] [id number] [place] [address] Jul, [facility] [place] [facility] [address] [id number] [place] [address] Jul, [facility] [place] [facility] [address] [id number] [place] [address] Jul, [facility] [place] [facility] [address] [id number] [place] [address] Jul, [facility] [address] [id number] [place] [address] Jul, [facility] [address] [id number] [place] [address] June, [facility] [address] [id number] [place] [address] June, [facility] [address] [id number] [place] [address] June, [facility] [address] [id number] [place] [address] June, [facility] [address] [id number] [place] [address] June, [facility] [address] [id number] [place] [address] June, [facility] [address] [id number] [place] [address] June, [facility] [address] [id number] [place] [address] June, [facility] [address] [id number] [place] [address] May, [facility] [address] [id number] [place] [address] May, [facility] [place] [facility] [address] [id number] [place] [address] 16 May, 2012 [facility] [place] [facility] [address] [id number] [place] [address] 15 May, 2012 [facility] [place] [facility] [address] [id number] [place] [address] 08 May, 2012 [facility] [place] [facility] [address] [id number] [place] [address] May, [facility] [place] [facility] [address] [id number] [place] [address] 04 May, 2012 [facility] [address] [id number] [place] [address] May, [facility] [address] [id number] [place] [address] May, [facility] [address] [id number] [place] [address] May, [facility] [address] [id number] [place] [address] Apr, [facility] [address] [id number] [place] [address] 19 Apr, 2012 [facility] [address] [id number] [place] [address] 18 Apr, 2012 [facility] [address] [id number] [place] [address] 15 Apr, 2012 [facility] [address] [id number] [place] [address] 13 Apr, 2012 [facility] [address] [id number] [place] [address] 05 Apr, 2012 [facility] [address] [facility] [id number] [place] [address] 04 Apr, 2012 [facility] [address] [id number] [place] [address] 28 Mar, 2012 [facility] [address] [id number] [place] [address] Mar, [facility] [address] [id number] [place] [address] Mar, [facility] [address] [id number] [place] [address] Mar, [facility] [address] [id number] [place] [address] Mar, [facility] [place] [facility] [address] [id number] [place] [address] 07 Mar, 2012 [facility] [place] [facility] [address] [id number] [place] [address] 06 Mar, 2012 [facility] [place] [facility] [address] [id number] [place] [address] 05 Mar, 2012 [facility] [place] [facility] [address] [id number] [place] [address] Mar, [facility] [place] [facility] [address] [id number] [place] [address] Feb, [facility] [place] [facility] [address] [id number] [place] [address] Feb, [facility] [place] [facility] [address] [id number] [place] [address] Feb, [facility] [place] [facility] [address] [id number] [place] [address] Feb, [facility] [place] [facility] [address] [id number] [place] [address] Feb, [facility] [place] [facility] [address] [id number] [place] [address] Feb, [facility] [place] [facility] [address] [id number] [place] [address] Feb, [facility] [place] [facility] [address] [id number] [place] [address] Jan, [facility] [place] [facility] [address] [id number] [place] [address] Jan, [facility] [place] [facility] [address] [id number] [place] [address] Jan, [facility] [place] [facility] [address] [id number] [place] [address] Jan, [facility] [place] [facility] [address] [id number] [place] [address] 27 Jan, 2012 [facility] [address] [id number] [place] [address] 27 Jan, 2012 [facility] [place] [facility] [address] [id number] [place] [address] 14 Jan, 2012 [facility] [address] [id number] [place] [address] Jan, [facility] [place] [facility] [address] [id number] [place] [address] 10 Jan, 2012 [facility] [address] [id number] [place] [address] Jan, [facility] [address] [id number] [place] [address] 04 Jan, 2012 [facility] [address] [id number] [place] [address] Jan, [facility] [address] [id number] [place] [address] Jan, [facility] [place] [facility] [address] [id number] [place] [address] Dec, [facility] [address] [id number] [place] [address] 29 Dec, 2011 [facility] [place] [facility] [address] [id number] [place] [address] Dec, [facility] [place] [facility] [address] [id number] [place] [address] Dec, [facility] [place] [facility] [address] [id number] [place] [address] Dec, [facility] [place] [facility] [address] [id number] [place] [address] Dec, [facility] [place] [facility] [address] [id number] [place] [address] Dec, [facility] [place] [facility] [address] [id number] [place] [address] Dec, [facility] [place] [facility] [address] [id number] [place] [address] Dec, [facility] [place] [facility] [address] [id number] [place] [address] Dec, [facility] [place] [facility] [address] [id number] [place] [address] Dec, [facility] [place] [facility] [address] [id number] [place] [address] Dec, [facility] [place] [facility] [address] [id number] [place] [address] Dec, [facility] [place] [facility] [address] [id number] [place] [address] Dec, [facility] [place] [facility] [address] [id number] [address] Nov, [facility] [place] [facility] [address] [id number] [place] [address] Nov, [facility] [place] [facility] [address] [facility] [id number] [address] Nov, [facility] [place] [facility] [address] [id number] [address] Nov, [facility] [place] [facility] [address] [id number] [address] Nov, [facility] [place] [facility] [address] [id number] [address] Nov, [facility] [place] [facility] [address] [id number] [place] [address] Nov, [facility] [place] [facility] [address] [facility] [id number] [address] Nov, [facility] [place] [facility] [address] [id number] [place] [address] Nov, [facility] [place] [facility] [address] [id number] [place] [address] Nov, [facility] [place] [facility] [address] [id number] [place] [address] Nov, [facility] [place] [facility] [address] [facility] [id number] [place] [address] Nov, [facility] [place] [facility] [address] [id number] [place] [address] Nov, [facility] [place] [facility] [address] [id number] [place] [address] 25 Oct, 2011 [facility] [place] [facility] [address] [id number] [place] [address] 25 Oct, 2011 [facility] [place] [facility] [address] [facility] [id number] [place] [address] 24 Oct, 2011 [facility] [place] [facility] [address] [id number] [place] [address] 17 Oct, 2011 [facility] [place] [facility] [address] [id number] [place] [address] 14 Oct, 2011 [facility] [place] [facility] [address] [facility] [id number] [place] [address] 11 Oct, 2011 [facility] [place] [facility] [address] [id number] [place] [address] 06 Oct, 2011 [facility] [place] [facility] [address] [id number] [place] [address] Sep, [facility] [place] [facility] [address] [id number] [place] [address] Sep, [facility] [place] [facility] [address] [facility] [id number] [place] [address] Sep, [facility] [place] [facility] [address] [facility] [id number] [place] [address] Sep, [facility] [place] [facility] [address] [facility] [id number] [place] [address] Aug, IMMUNIZATIONS No Known Immunizations SOCIAL HISTORY Never Assessed REASON FOR VISIT EMR-[facility] PLAN OF CARE VITAL SIGNS [...]
--- OUTSIDE RECORDS SUMMARY | 2018-07-22 19:02 | XMS REPORT ---
Author Author Migration, Doctor Organization [facility] Address Unknown Phone Unavailable Care Team Providers Care Therapeutic Activities Services Worker Name Role Phone Migration, Doctor Unavailable Unavailable PROBLEMS Type Condition ICD9-CM Code [id number] Code Onset Dates Condition Status SNOMED Code Problem Loss of weight 783.21 Active 567643210 Problem Unspecified arthropathy, site unspecified 716.90 Active 745268512 Problem Lumbago 724.2 Active 110727795 Problem Depressive disorder, not elsewhere classified 311 Active 24579041 Problem Other abnormal glucose 790.29 Active 370965633 Problem Anxiety state, unspecified 300.00 Active 517609147 Problem Chronic airway obstruction, not elsewhere classified 496 Active 95512189 Problem 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 146643948 Problem Unspecified essential hypertension 401.9 Active 37175604 Problem Migraine, unspecified without mention of intractable migraine without mention of status migrainosus 346.90 Active 29720135 ALLERGIES No Information ENCOUNTERS Encounter Location Date Diagnosis [facility] [address] [address] Mar, [facility] [address] [address] Feb, Arthropathy, unspecified M12.9 [facility] [id number] [address] Feb, [facility] [id number] [address] Jan, [facility] [address] [address] Jan, [facility] [address] [address] Jan, [facility] [address] [address] Oct, 2014 [facility] [place] [facility] [address] [id number] [place] [address] 10 Oct, 2014 Lumbago 724.2 [facility] [place] [facility] [address] [id number] [place] [address] Oct, 2014 [facility] [place] [facility] [address] [id number] [place] [address] 08 Oct, 2014 [facility] [place] [facility] [address] [id number] [place] [address] 08 Oct, 2014 [facility] [place] [facility] [address] [id number] [place] [address] Oct, 2014 [facility] [place] [facility] [address] [id number] [place] [address] Oct, 2014 [facility] [place] [facility] [address] [id number] [place] [address] Oct, 2014 [facility] [place] [facility] [address] [id number] [place] [address] Sep, 2014 [facility] [place] [facility] [address] [id number] [place] [address] Sep, 2014 [facility] [place] [facility] [address] [id number] [place] [address] Aug, 2014 [facility] [place] [facility] [address] [id number] [place] [address] Aug, 2014 [facility] [place] [facility] [address] [id number] [place] [address] Aug, 2014 [facility] [place] [facility] [address] [id number] [place] [address] Aug, 2014 [facility] [place] [facility] [address] [id number] [place] [address] Aug, 2014 [facility] [place] [facility] [address] [id number] [place] [address] Aug2014 [facility] [place] [facility] [address] [facility] [id number], [place] [address] Jul, Unspecified arthropathy, site unspecified 716.90 [facility] [address] [address] Jul, [facility] [address] [address] Jul, [facility] [address] [address] June, Acute bronchitis 466.0 ; Unspecified arthropathy, site unspecified 716.90 and Chronic pain disorder 338.4 [facility] [id number] [address] June, [facility] [address] [address] June, [facility] [id number] [address] June, [facility] [id number] [address] June, [facility] [id number] [address] May, [facility] [address] [id number] [address] May, [facility] [address] [id number] [address] May, [facility] [address] [id number] [address] Apr, [facility] [address], [place] [address] Apr, [facility] [address] [id number] [address] Apr, [facility] [address], [place] [address] 12 Apr, 2014 [facility] [place] [facility] [address] [id number] [place] [address] Apr, 2014 [facility] [place] [facility] [address] [id number] [place] [address] 10 Apr, 2014 [facility] [place] [facility] [address] [facility] [id number] [place] [address] Apr, 2014 [facility] [place] [facility] [address] [id number] [place] [address] Apr, [facility] [place] [facility] [address] [id number] [place] [address] 24 Mar, 2014 [facility] [place] [facility] [address] [facility] [id number] [place] [address] 24 Mar, 2014 [facility] [place] [facility] [address] [facility] [id number] [place] [address] 17 Mar, 2014 [facility] [place] [facility] [address] [facility] [id number] [place] [address] 17 Mar, 2014 [facility] [place] [facility] [address] [facility] [id number] [place] [address] 17 Mar, 2014 [facility] [place] [facility] [address] [facility] [id number] [place] [address] 17 Mar, 2014 [facility] [place] [facility] [address] [facility] [id number] [place] [address] 13 Mar, 2014 [facility] [place] [facility] [address] [facility] [id number] [place] [address] 13 Mar, 2014 [facility] [place] [facility] [address] [facility] [id number] [place] [address] 13 Mar, 2014 [facility] [place] [facility] [address] [facility] [id number] [place] [address] 13 Mar, 2014 [facility] [place] [facility] [address] [facility] [id number] [place] [address] Mar, [facility] [place] [facility] [address] [id number] [place] [address] Mar, [facility] [place] [facility] [address] [id number] [place] [address] Mar, [facility] [place] [facility] [address] [id number] [place] [address] Mar, [facility] [place] [facility] [address] [id number] [place] [address] Mar, [facility] [place] [facility] [address] [id number] [place] [address] Feb, [facility] [place] [facility] [address] [id number] [place] [address] Feb, [facility] [place] [facility] [address] [id number] [place] [address] Feb, [facility] [place] [facility] [address] [id number] [place] [address] Feb, [facility] [place] [facility] [address] [id number] [place] [address] Feb, [facility] [place] [facility] [address] [id number] [place] [address] Feb, [facility] [place] [facility] [address] [id number] [place] [address] Feb, [facility] [place] [facility] [address] [id number], [place] [address] Feb, [facility] [place] [facility] [address] [id number] [place] [address] Feb, [facility] [place] [facility] [address] [id number] [place] [address] Feb, [facility] [place] [facility] [address] [id number] [place] [address] Feb, [facility] [place] [facility] [address] [id number] [place] [address] Jan, [facility] [address] [id number] [place] [address] Jan, [facility] [address] [id number] [place] [address] 15 Jan, 2014 [facility] [address] [id number] [place] [address] 15 Jan, 2014 [facility] [address] [id number] [place] [address] 15 Jan, 2014 [facility] [address] [id number] [place] [address] Jan, [facility] [address] [id number] [place] [address] Jan, [facility] [address] [id number] [place] [address] Jan, [facility] [address] [id number] [place] [address] Jan, [facility] [address] [id number] [place] [address] Jan, [facility] [address] [id number] [place] [address] Jan, [facility] [place] [facility] [address] [id number] [place] [address] Jan, [facility] [place] [facility] [address] [id number] [place] [address] Jan, [facility] [place] [facility] [address] [id number] [place] [address] Jan, [facility] [place] [facility] [address] [id number] [place] [address] Jan, [facility] [place] [facility] [address] [id number] [place] [address] Dec, [facility] [place] [facility] [address] [id number] [place] [address] Dec, [facility] [place] [facility] [address] [id number] [place] [address] Dec, [facility] [place] [facility] [address] [id number] [place] [address] Dec, [facility] [place] [facility] [address] [id number] [place] [address] Dec, [facility] [place] [facility] [address] [id number] [place] [address] Dec, [facility] [place] [facility] [address] [id number] [place] [address] Dec, [facility] [place] [facility] [address] [id number] [place] [address] Dec, [facility] [place] [facility] [address] [id number] [place] [address] Dec, [facility] [place] [facility] [address] [id number] [place] [address] Dec, [facility] [place] [facility] [address] [id number] [place] [address] Dec, [facility] [place] [facility] [address] [id number] [place] [address] Dec, [facility] [place] [facility] [address] [id number], [place] [address] Dec, [facility] [place] [facility] [address] [id number] [place] [address] Dec, [facility] [place] [facility] [address] [id number] [place] [address] Dec, [facility] [place] [facility] [address] [id number], [place] [address] Dec, [facility] [place] [facility] [address] [id number], [place] [address] Dec, [facility] [place] [facility] [address] [id number] [place] [address] Dec, [facility] [place] [facility] [address] [id number] [place] [address] Dec, [facility] [place] [facility] [address] [id number] [place] [address] Dec, [facility] [place] [facility] [address] [id number] [place] [address] Nov, [facility] [place] [facility] [address] [id number] [place] [address] Nov, [facility] [place] [facility] [address] [id number] [place] [address] Nov, [facility] [place] [facility] [address] [id number] [place] [address] Nov, [facility] [place] [facility] [address] [id number] [place] [address] 15 Nov, 2013 [facility] [place] [facility] [address] [id number] [place] [address] Nov, [facility] [place] [facility] [address] [id number] [place] [address] Nov, [facility] [place] [facility] [address] [id number], [place] [address] Nov, [facility] [place] [facility] [address] [id number], [place] [address] Nov, [facility] [place] [facility] [address] [id number] [place] [address] Nov, [facility] [place] [facility] [address] [id number], [place] [address] Nov, [facility] [place] [facility] [address] [id number] [place] [address] Nov, [facility] [place] [facility] [address] [id number] [place] [address] 22 Oct, 2013 [facility] [place] [facility] [address] [id number] [place] [address] 22 Oct, 2013 [facility] [place] [facility] [address] [id number] [place] [address] 19 Oct, 2013 [facility] [place] [facility] [address] [id number] [place] [address] 19 Oct, 2013 [facility] [place] [facility] [address] [id number] [place] [address] 17 Oct, 2013 [facility] [place] [facility] [address] [id number] [place] [address] 17 Oct, 2013 [facility] [place] [facility] [address] [id number] [place] [address] 16 Oct, 2013 [facility] [place] [facility] [address] [id number] [place] [address] 16 Oct, 2013 [facility] [place] [facility] [address] [id number] [place] [address] Oct, 2013 [facility] [place] [facility] [address] [id number] [place] [address] Oct, 2013 [facility] [place] [facility] [address] [id number] [place] [address] Sep, [facility] [place] [facility] [address] [id number] [place] [address] Sep, [facility] [place] [facility] [address] [id number] [place] [address] Sep, [facility] [place] [facility] [address] [id number] [place] [address] Sep, [facility] [place] [facility] [address] [id number] [place] [address] Sep, [facility] [place] [facility] [address] [id number] [place] [address] Sep, [facility] [place] [facility] [address] [id number] [place] [address] Sep, [facility] [place] [facility] [address] [id number] [place] [address] Sep, [facility] [place] [facility] [address] [id number] [place] [address] Sep, [facility] [place] [facility] [address] [id number] [place] [address] Sep, [facility] [place] [facility] [address] [id number] [place] [address] Sep, [facility] [place] [facility] [address] [id number] [place] [address] Sep, [facility] [place] [facility] [address] [id number] [place] [address] Sep, [facility] [place] [facility] [address] [id number] [place] [address] Sep, [facility] [place] [facility] [address] [id number] [place] [address] Aug, [facility] [place] [facility] [address] [id number] [place] [address] Aug, [facility] [place] [facility] [address] [id number] [place] [address] Aug, [facility] [place] [facility] [address] [id number] [place] [address] Aug, [facility] [place] [facility] [address] [id number] [place] [address] Aug, [facility] [place] [facility] [address] [id number] [place] [address] Aug, [facility] [place] [facility] [address] [id number] [place] [address] Aug, [facility] [place] [facility] [address] [id number] [place] [address] Aug, [facility] [place] [facility] [address] [id number] [place] [address] Aug, [facility] [place] [facility] [address] [id number] [place] [address] Aug, [facility] [place] [facility] [address] [id number] [place] [address] Aug, [facility] [place] [facility] [address] [id number] [place] [address] Jul, [facility] [place] [facility] [address] [id number] [place] [address] Jul, [facility] [place] [facility] [address] [id number] [place] [address] Jul, [facility] [place] [facility] [address] [id number] [place] [address] Jul, [facility] [place] [facility] [address] [id number] [place] [address] Jul, [facility] [place] [facility] [address] [id number] [place] [address] Jul, [facility] [place] [facility] [address] [id number] [place] [address] Jul, [facility] [place] [facility] [address] [id number] [place] [address] Jul, [facility] [place] [facility] [address] [id number] [place] [address] Jul, [facility] [place] [facility] [address] [id number] [place] [address] Jul, [facility] [place] [facility] [address] [id number] [place] [address] June, [facility] [place] [facility] [address] [id number] [place] [address] June, [facility] [place] [facility] [address] [id number] [place] [address] June, [facility] [address] [id number] [place] [address] June, [facility] [place] [facility] [address] [id number] [place] [address] June, [facility] [place] [facility] [address] [id number] [place] [address] June, [facility] [address] [id number] [place] [address] June, [facility] [place] [facility] [address] [id number] [place] [address] June, [facility] [address] [id number] [place] [address] June, [facility] [address] [id number] [place] [address] June, [facility] [address] [id number] [place] [address] June, [facility] [place] [facility] [address] [id number] [place] [address] June, [facility] [place] [facility] [address] [id number] [place] [address] June, [facility] [place] [facility] [address] [id number] [place] [address] June, [facility] [place] [facility] [address] [id number] [place] [address] June, [facility] [place] [facility] [address] [id number] [place] [address] June, [facility] [place] [facility] [address] [id number] [place] [address] June, [facility] [place] [facility] [address] [id number] [place] [address] May, [facility] [place] [facility] [address] [id number] [place] [address] May, [facility] [place] [facility] [address] [id number] [place] [address] May, [facility] [place] [facility] [address] [id number] [place] [address] May, [facility] [place] [facility] [address] [id number] [place] [address] May, [facility] [place] [facility] [address] [id number] [place] [address] May, [facility] [place] [facility] [address] [id number] [place] [address] May, [facility] [place] [facility] [address] [id number] [place] [address] May, [facility] [place] [facility] [address] [id number] [place] [address] May, [facility] [place] [facility] [address] [id number] [place] [address] May, [facility] [place] [facility] [address] [id number] [place] [address] Apr, [facility] [place] [facility] [address] [id number] [place] [address] Apr, [facility] [place] [facility] [address] [id number] [place] [address] Apr, [facility] [place] [facility] [address] [id number] [place] [address] Apr, [facility] [place] [facility] [address] [id number] [place] [address] Apr, [facility] [place] [facility] [address] [id number] [place] [address] Apr, [facility] [place] [facility] [address] [id number] [place] [address] 13 Apr, 2013 [facility] [place] [facility] [address] [id number] [place] [address] 13 Apr, 2013 [facility] [place] [facility] [address] [id number] [place] [address] 07 Apr, 2013 [facility] [place] [facility] [address] [id number] [place] [address] Apr, [facility] [place] [facility] [address] [id number] [place] [address] Mar, [facility] [place] [facility] [address] [id number] [place] [address] Mar, [facility] [place] [facility] [address] [facility] [id number] [place] [address] Mar, [facility] [place] [facility] [address] [id number] [place] [address] Mar, [facility] [place] [facility] [address] [id number] [place] [address] Mar, [facility] [place] [facility] [address] [facility] [id number] [place] [address] Mar, [facility] [place] [facility] [address] [facility] [id number] [place] [address] Mar, [facility] [place] [facility] [address] [facility] [id number] [place] [address] Mar, [facility] [place] [facility] [address] [facility] [id number] [place] [address] Mar, [facility] [place] [facility] [address] [id number] [place] [address] Mar, [facility] [place] [facility] [address] [facility] [id number] [place] [address] 07 Mar, 2013 [facility] [place] [facility] [address] [facility] [id number] [place] [address] Mar, [facility] [address] [id number] [place] [address] Mar, [facility] [place] [facility] [address] [id number] [place] [address] Feb, [facility] [place] [facility] [address] [id number] [place] [address] Feb, [facility] [place] [facility] [address] [id number] [place] [address] Feb, [facility] [place] [facility] [address] [id number] [place] [address] Feb, [facility] [place] [facility] [address] [id number] [place] [address] Feb, [facility] [place] [facility] [address] [id number] [place] [address] Feb, [facility] [place] [facility] [address] [id number] [place] [address] Feb, [facility] [place] [facility] [address] [id number] [place] [address] Feb, [facility] [place] [facility] [address] [id number] [place] [address] Feb, [facility] [place] [facility] [address] [id number] [place] [address] Feb, [facility] [place] [facility] [address] [id number] [place] [address] Jan, [facility] [place] [facility] [address] [id number] [place] [address] Jan, [facility] [place] [facility] [address] [id number] [place] [address] Jan, [facility] [place] [facility] [address] [id number] [place] [address] Jan, [facility] [place] [facility] [address] [id number] [place] [address] Jan, [facility] [address] [id number] [place] [address] Jan, [facility] [place] [facility] [address] [id number] [place] [address] Jan, [facility] [address] [id number] [place] [address] Jan, [facility] [place] [facility] [address] [id number] [place] [address] Jan, [facility] [address] [id number] [place] [address] Jan, [facility] [place] [facility] [address] [id number] [place] [address] Jan, [facility] [place] [facility] [address] [id number] [place] [address] Jan, [facility] [address] [id number] [place] [address] Jan, [facility] [place] [facility] [address] [id number] [place] [address] Jan, [facility] [place] [facility] [address] [id number] [place] [address] Jan, [facility] [place] [facility] [address] [id number] [place] [address] Jan, [facility] [place] [facility] [address] [id number] [place] [address] Dec, [facility] [place] [facility] [address] [id number] [place] [address] Dec, [facility] [place] [facility] [address] [id number] [place] [address] Dec, [facility] [place] [facility] [address] [id number] [place] [address] Dec, [facility] [place] [facility] [address] [id number] [place] [address] 15 Dec, 2012 [facility] [place] [facility] [address] [id number] [place] [address] 15 Dec, 2012 [facility] [place] [facility] [address] [id number] [place] [address] Dec, [facility] [place] [facility] [address] [id number] [place] [address] Dec, [facility] [place] [facility] [address] [id number] [place] [address] Dec, [facility] [place] [facility] [address] [id number] [place] [address] Dec, [facility] [place] [facility] [address] [id number] [place] [address] Nov, [facility] [place] [facility] [address] [id number], [place] [address] 30 Nov, 2012 [facility] [place] [facility] [address] [id number] [place] [address] Nov, [facility] [place] [facility] [address] [id number], [place] [address] Nov, [facility] [place] [facility] [address] [id number], [place] [address] 18 Nov, 2012 [facility] [place] [facility] [address] [id number], [place] [address] 18 Nov, 2012 [facility] [place] [facility] [address] [id number] [place] [address] 14 Nov, 2012 [facility] [place] [facility] [address] [id number], [place] [address] 14 Nov, 2012 [facility] [place] [facility] [address] [id number], [place] [address] 09 Nov, 2012 [facility] [place] [facility] [address] [id number] [place] [address] 09 Nov, 2012 [facility] [address] [id number] [place] [address] 07 Nov, 2012 [facility] [place] [facility] [address] [id number] [place] [address] 05 Nov, 2012 [facility] [place] [facility] [address] [id number] [place] [address] 20 Oct, 2012 [facility] [place] [facility] [address] [id number] [place] [address] 20 Oct, 2012 [facility] [place] [facility] [address] [id number] [place] [address] 19 Oct, 2012 [facility] [place] [facility] [address] [id number] [place] [address] 18 Oct, 2012 [facility] [address] [id number] [place] [address] 13 Oct, 2012 [facility] [place] [facility] [address] [id number] [place] [address] 05 Oct, 2012 [facility] [place] [facility] [address] [id number] [place] [address] 04 Oct, 2012 [facility] [place] [facility] [address] [id number] [place] [address] 28 Sep, 2012 [facility] [place] [facility] [address] [id number] [place] [address] Sep, [facility] [place] [facility] [address] [id number] [place] [address] Sep, [facility] [place] [facility] [address] [id number] [place] [address] Sep, [facility] [place] [facility] [address] [id number] [place] [address] Sep, [facility] [place] [facility] [address] [id number] [place] [address] 08 Sep, 2012 [facility] [place] [facility] [address] [id number] [place] [address] Sep, [facility] [place] [facility] [address] [id number] [place] [address] Aug, [facility] [place] [facility] [address] [id number] [place] [address] Aug, [facility] [place] [facility] [address] [id number] [place] [address] Aug, [facility] [place] [facility] [address] [id number] [place] [address] Aug, [facility] [place] [facility] [address] [id number] [place] [address] Aug, [facility] [place] [facility] [address] [id number] [place] [address] Aug, [facility] [place] [facility] [address] [id number] [place] [address] Aug, [facility] [place] [facility] [address] [id number] [place] [address] Aug, [facility] [place] [facility] [address] [id number] [place] [address] Aug, [facility] [place] [facility] [address] [id number] [place] [address] Jul, [facility] [place] [facility] [address] [id number] [place] [address] Jul, [facility] [place] [facility] [address] [id number] [place] [address] Jul, [facility] [place] [facility] [address] [id number] [place] [address] Jul, [facility] [place] [facility] [address] [id number] [place] [address] Jul, [facility] [place] [facility] [address] [id number] [place] [address] Jul, [facility] [address] [id number] [place] [address] Jul, [facility] [address] [id number] [place] [address] June, [facility] [address] [id number] [place] [address] June, [facility] [address] [id number] [place] [address] June, [facility] [address] [id number] [place] [address] June, [facility] [address] [id number] [place] [address] June, [facility] [address] [id number] [place] [address] June, [facility] [address] [id number] [place] [address] June, [facility] [address] [id number] [place] [address] June, [facility] [address] [id number] [place] [address] May, [facility] [address] [id number] [place] [address] May, [facility] [place] [facility] [address] [id number] [place] [address] 16 May, 2012 [facility] [place] [facility] [address] [id number] [place] [address] 15 May, 2012 [facility] [place] [facility] [address] [id number] [place] [address] 08 May, 2012 [facility] [place] [facility] [address] [id number] [place] [address] May, [facility] [place] [facility] [address] [id number] [place] [address] 04 May, 2012 [facility] [address] [id number] [place] [address] May, [facility] [address] [id number] [place] [address] May, [facility] [address] [id number] [place] [address] May, [facility] [address] [id number] [place] [address] Apr, [facility] [address] [id number] [place] [address] 19 Apr, 2012 [facility] [address] [id number] [place] [address] 18 Apr, 2012 [facility] [address] [id number] [place] [address] 15 Apr, 2012 [facility] [address] [id number] [place] [address] 13 Apr, 2012 [facility] [address] [id number] [place] [address] 05 Apr, 2012 [facility] [address] [facility] [id number] [place] [address] 04 Apr, 2012 [facility] [address] [id number] [place] [address] 28 Mar, 2012 [facility] [address] [id number] [place] [address] Mar, [facility] [address] [id number] [place] [address] Mar, [facility] [address] [id number] [place] [address] Mar, [facility] [address] [id number] [place] [address] Mar, [facility] [place] [facility] [address] [id number] [place] [address] 07 Mar, 2012 [facility] [place] [facility] [address] [id number] [place] [address] 06 Mar, 2012 [facility] [place] [facility] [address] [id number] [place] [address] 05 Mar, 2012 [facility] [place] [facility] [address] [id number] [place] [address] Mar, [facility] [place] [facility] [address] [id number] [place] [address] Feb, [facility] [place] [facility] [address] [id number] [place] [address] Feb, [facility] [place] [facility] [address] [id number] [place] [address] Feb, [facility] [place] [facility] [address] [id number] [place] [address] Feb, [facility] [place] [facility] [address] [id number] [place] [address] Feb, [facility] [place] [facility] [address] [id number] [place] [address] Feb, [facility] [place] [facility] [address] [id number] [place] [address] Feb, [facility] [place] [facility] [address] [id number] [place] [address] Jan, [facility] [place] [facility] [address] [id number] [place] [address] Jan, [facility] [place] [facility] [address] [id number] [place] [address] Jan, [facility] [place] [facility] [address] [id number] [place] [address] Jan, [facility] [place] [facility] [address] [id number] [place] [address] 27 Jan, 2012 [facility] [address] [id number] [place] [address] 27 Jan, 2012 [facility] [place] [facility] [address] [id number] [place] [address] 14 Jan, 2012 [facility] [address] [id number] [place] [address] Jan, [facility] [place] [facility] [address] [id number] [place] [address] 10 Jan, 2012 [facility] [address] [id number] [place] [address] Jan, [facility] [address] [id number] [place] [address] 04 Jan, 2012 [facility] [address] [id number] [place] [address] Jan, [facility] [address] [id number] [place] [address] Jan, [facility] [place] [facility] [address] [id number] [place] [address] Dec, [facility] [address] [id number] [place] [address] 29 Dec, 2011 [facility] [place] [facility] [address] [id number] [place] [address] Dec, [facility] [place] [facility] [address] [id number] [place] [address] Dec, [facility] [place] [facility] [address] [id number] [place] [address] Dec, [facility] [place] [facility] [address] [id number] [place] [address] Dec, [facility] [place] [facility] [address] [id number] [place] [address] Dec, [facility] [place] [facility] [address] [id number] [place] [address] Dec, [facility] [place] [facility] [address] [id number] [place] [address] Dec, [facility] [place] [facility] [address] [id number] [place] [address] Dec, [facility] [place] [facility] [address] [id number] [place] [address] Dec, [facility] [place] [facility] [address] [id number] [place] [address] Dec, [facility] [place] [facility] [address] [id number] [place] [address] Dec, [facility] [place] [facility] [address] [id number] [place] [address] Dec, [facility] [place] [facility] [address] [id number], [place] [address] Nov, [facility] [place] [facility] [address] [id number] [place] [address] Nov, [facility] [place] [facility] [address] [facility] [id number], [place] [address] Nov, [facility] [place] [facility] [address] [id number], [place] [address] Nov, [facility] [place] [facility] [address] [id number], [place] [address] Nov, [facility] [place] [facility] [address] [id number], [place] [address] Nov, [facility] [place] [facility] [address] [id number], [place] [address] Nov, [facility] [place] [facility] [address] [facility] [id number], [place] [address] Nov, [facility] [place] [facility] [address] [id number], [place] [address] Nov, [facility] [place] [facility] [address] [id number] [place] [address] Nov, [facility] [place] [facility] [address] [id number] [place] [address] Nov, [facility] [place] [facility] [address] [facility] [id number] [place] [address] Nov, [facility] [place] [facility] [address] [id number] [place] [address] Nov, [facility] [place] [facility] [address] [id number] [place] [address] 25 Oct, 2011 [facility] [place] [facility] [address] [id number] [place] [address] 25 Oct, 2011 [facility] [place] [facility] [address] [facility] [id number] [place] [address] 24 Oct, 2011 [facility] [place] [facility] [address] [id number] [place] [address] 17 Oct, 2011 [facility] [place] [facility] [address] [id number] [place] [address] 14 Oct, 2011 [facility] [place] [facility] [address] [facility] [id number] [place] [address] 11 Oct, 2011 [facility] [place] [facility] [address] [id number] [place] [address] 06 Oct, 2011 [facility] [place] [facility] [address] [id number], [place] [address] Sep, [facility] [place] [facility] [address] [id number] [place] [address] Sep, [facility] [place] [facility] [address] [facility] [id number], [place] [address] Sep, [facility] [place] [facility] [address] [facility] [id number] [place] [address] Sep, [facility] [place] [facility] [address] [facility] [id number] [place] [address] Aug, IMMUNIZATIONS No Known Immunizations SOCIAL HISTORY Never Assessed REASON FOR VISIT EMR-[facility] PLAN OF CARE VITAL SIGNS [...]
--- OUTSIDE RECORDS SUMMARY | 2018-07-22 19:02 | XMS REPORT ---
Author Author Migration, Doctor Organization [facility] Address Unknown Phone Unavailable Care Team [facility] Representative Name Role Phone Migration, Doctor Unavailable Unavailable PROBLEMS Type Condition ICD9-CM Code [id number] Code Onset Dates Condition Status SNOMED Code Problem Loss of weight 783.21 Active 148520752 Problem Unspecified arthropathy, site unspecified 716.90 Active 582251604 Problem Lumbago 724.2 Active 761097894 Problem Depressive disorder, not elsewhere classified 311 Active 87644235 Problem Other abnormal glucose 790.29 Active 988865462 Problem Anxiety state, unspecified 300.00 Active 809565229 Problem Chronic airway obstruction, not elsewhere classified 496 Active 67297477 Problem 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 934305327 Problem Unspecified essential hypertension 401.9 Active 37341436 Problem Migraine, unspecified without mention of intractable migraine without mention of status migrainosus 346.90 Active 38185353 ALLERGIES No Information ENCOUNTERS Encounter Location Date Diagnosis [facility] [address] [address] Mar, [facility] [address] [address] Feb, Arthropathy, unspecified M12.9 [facility] [id number] [place] [address] Feb, [facility] [id number] [place] [address] Jan, [facility] [address] [address] Jan, [facility] [address] [address] Jan, [facility] [address] [address] Oct, 2014 [facility] [place] [facility] [address] [id number] [place] [address] 10 Oct, 2014 Lumbago 724.2 [facility] [place] [facility] [address] [id number] [place] [address] Oct, 2014 [facility] [place] [facility] [address] [id number] [place] [address] 08 Oct, 2014 [facility] [place] [facility] [address] [id number] [place] [address] 08 Oct, 2014 [facility] [place] [facility] [address] [id number] [place] [address] Oct, 2014 [facility] [place] [facility] [address] [id number] [place] [address] Oct, 2014 [facility] [place] [facility] [address] [id number] [place] [address] Oct, 2014 [facility] [place] [facility] [address] [id number] [place] [address] Sep, 2014 [facility] [place] [facility] [address] [id number] [place] [address] Sep, 2014 [facility] [place] [facility] [address] [id number] [place] [address] Aug, 2014 [facility] [place] [facility] [address] [id number] [place] [address] Aug, 2014 [facility] [place] [facility] [address] [id number] [place] [address] Aug, 2014 [facility] [place] [facility] [address] [id number] [place] [address] Aug, 2014 [facility] [place] [facility] [address] [id number] [place] [address] Aug, 2014 [facility] [place] [facility] [address] [id number] [place] [address] Aug2014 [facility] [place] [facility] [address] [facility] [id number], [place] [address] Jul, Unspecified arthropathy, site unspecified 716.90 [facility] [id number], [place] [address] Jul, [facility] [id number], [place] [address] Jul, [facility] [id number], [place] [address] June, Acute bronchitis 466.0 ; Unspecified arthropathy, site unspecified 716.90 and Chronic pain disorder 338.4 [facility] [id number], [place] [address] June, [facility] [id number], [place] [address] June, [facility] [id number], [place] [address] June, [facility] [id number], [place] [address] June, [facility] [id number], [place] [address] May, [facility] [address] [id number], [place] [address] May, [facility] [address] [id number], [place] [address] May, [facility] [address] [id number], [place] [address] Apr, [facility] [id number], [place] [address] Apr, [facility] [address] [id number], [place] [address] Apr, [facility] [id number], [place] [address] 12 Apr, 2014 [facility] [place] [facility] [address] [id number] [place] [address] Apr, 2014 [facility] [place] [facility] [address] [id number] [place] [address] 10 Apr, 2014 [facility] [place] [facility] [address] [facility] [id number] [place] [address] Apr, 2014 [facility] [place] [facility] [address] [id number] [place] [address] Apr, [facility] [place] [facility] [address] [id number] [place] [address] 24 Mar, 2014 [facility] [place] [facility] [address] [facility] [id number] [place] [address] 24 Mar, 2014 [facility] [place] [facility] [address] [facility] [id number] [place] [address] 17 Mar, 2014 [facility] [place] [facility] [address] [facility] [id number] [place] [address] 17 Mar, 2014 [facility] [place] [facility] [address] [facility] [id number] [place] [address] 17 Mar, 2014 [facility] [place] [facility] [address] [facility] [id number] [place] [address] 17 Mar, 2014 [facility] [place] [facility] [address] [facility] [id number] [place] [address] 13 Mar, 2014 [facility] [place] [facility] [address] [facility] [id number] [place] [address] 13 Mar, 2014 [facility] [place] [facility] [address] [facility] [id number] [place] [address] 13 Mar, 2014 [facility] [place] [facility] [address] [facility] [id number] [place] [address] 13 Mar, 2014 [facility] [place] [facility] [address] [facility] [id number] [place] [address] Mar, [facility] [place] [facility] [address] [id number] [place] [address] Mar, [facility] [place] [facility] [address] [id number] [place] [address] Mar, [facility] [place] [facility] [address] [id number] [place] [address] Mar, [facility] [place] [facility] [address] [id number] [place] [address] Mar, [facility] [place] [facility] [address] [id number] [place] [address] Feb, [facility] [place] [facility] [address] [id number] [place] [address] Feb, [facility] [place] [facility] [address] [id number] [place] [address] Feb, [facility] [place] [facility] [address] [id number] [place] [address] Feb, [facility] [place] [facility] [address] [id number] [place] [address] Feb, [facility] [place] [facility] [address] [id number] [place] [address] Feb, [facility] [place] [facility] [address] [id number] [place] [address] Feb, [facility] [place] [facility] [address] [id number], [place] [address] Feb, [facility] [place] [facility] [address] [id number] [place] [address] Feb, [facility] [place] [facility] [address] [id number] [place] [address] Feb, [facility] [place] [facility] [address] [id number] [place] [address] Feb, [facility] [place] [facility] [address] [id number] [place] [address] Jan, [facility] [address] [id number] [place] [address] Jan, [facility] [address] [id number] [place] [address] 15 Jan, 2014 [facility] [address] [id number] [place] [address] 15 Jan, 2014 [facility] [address] [id number] [place] [address] 15 Jan, 2014 [facility] [address] [id number] [place] [address] Jan, [facility] [address] [id number] [place] [address] Jan, [facility] [address] [id number] [place] [address] Jan, [facility] [address] [id number] [place] [address] Jan, [facility] [address] [id number] [place] [address] Jan, [facility] [address] [id number] [place] [address] Jan, [facility] [place] [facility] [address] [id number] [place] [address] Jan, [facility] [place] [facility] [address] [id number] [place] [address] Jan, [facility] [place] [facility] [address] [id number] [place] [address] Jan, [facility] [place] [facility] [address] [id number] [place] [address] Jan, [facility] [place] [facility] [address] [id number] [place] [address] Dec, [facility] [place] [facility] [address] [id number] [place] [address] Dec, [facility] [place] [facility] [address] [id number] [place] [address] Dec, [facility] [place] [facility] [address] [id number] [place] [address] Dec, [facility] [place] [facility] [address] [id number] [place] [address] Dec, [facility] [place] [facility] [address] [id number] [place] [address] Dec, [facility] [place] [facility] [address] [id number] [place] [address] Dec, [facility] [place] [facility] [address] [id number] [place] [address] Dec, [facility] [place] [facility] [address] [id number] [place] [address] Dec, [facility] [place] [facility] [address] [id number] [place] [address] Dec, [facility] [place] [facility] [address] [id number] [place] [address] Dec, [facility] [place] [facility] [address] [id number] [place] [address] Dec, [facility] [place] [facility] [address] [id number], [place] [address] Dec, [facility] [place] [facility] [address] [id number] [place] [address] Dec, [facility] [place] [facility] [address] [id number] [place] [address] Dec, [facility] [place] [facility] [address] [id number], [place] [address] Dec, [facility] [place] [facility] [address] [id number], [place] [address] Dec, [facility] [place] [facility] [address] [id number] [place] [address] Dec, [facility] [place] [facility] [address] [id number] [place] [address] Dec, [facility] [place] [facility] [address] [id number] [place] [address] Dec, [facility] [place] [facility] [address] [id number] [place] [address] Nov, [facility] [place] [facility] [address] [id number] [place] [address] Nov, [facility] [place] [facility] [address] [id number] [place] [address] Nov, [facility] [place] [facility] [address] [id number] [place] [address] Nov, [facility] [place] [facility] [address] [id number] [place] [address] 15 Nov, 2013 [facility] [place] [facility] [address] [id number] [place] [address] Nov, [facility] [place] [facility] [address] [id number] [place] [address] Nov, [facility] [place] [facility] [address] [id number], [place] [address] Nov, [facility] [place] [facility] [address] [id number], [place] [address] Nov, [facility] [place] [facility] [address] [id number] [place] [address] Nov, [facility] [place] [facility] [address] [id number], [place] [address] Nov, [facility] [place] [facility] [address] [id number] [place] [address] Nov, [facility] [place] [facility] [address] [id number] [place] [address] 22 Oct, 2013 [facility] [place] [facility] [address] [id number] [place] [address] 22 Oct, 2013 [facility] [place] [facility] [address] [id number] [place] [address] 19 Oct, 2013 [facility] [place] [facility] [address] [id number] [place] [address] 19 Oct, 2013 [facility] [place] [facility] [address] [id number] [place] [address] 17 Oct, 2013 [facility] [place] [facility] [address] [id number] [place] [address] 17 Oct, 2013 [facility] [place] [facility] [address] [id number] [place] [address] 16 Oct, 2013 [facility] [place] [facility] [address] [id number] [place] [address] 16 Oct, 2013 [facility] [place] [facility] [address] [id number] [place] [address] Oct, 2013 [facility] [place] [facility] [address] [id number] [place] [address] Oct, 2013 [facility] [place] [facility] [address] [id number] [place] [address] Sep, [facility] [place] [facility] [address] [id number] [place] [address] Sep, [facility] [place] [facility] [address] [id number] [place] [address] Sep, [facility] [place] [facility] [address] [id number] [place] [address] Sep, [facility] [place] [facility] [address] [id number] [place] [address] Sep, [facility] [place] [facility] [address] [id number] [place] [address] Sep, [facility] [place] [facility] [address] [id number] [place] [address] Sep, [facility] [place] [facility] [address] [id number] [place] [address] Sep, [facility] [place] [facility] [address] [id number] [place] [address] Sep, [facility] [place] [facility] [address] [id number] [place] [address] Sep, [facility] [place] [facility] [address] [id number] [place] [address] Sep, [facility] [place] [facility] [address] [id number] [place] [address] Sep, [facility] [place] [facility] [address] [id number] [place] [address] Sep, [facility] [place] [facility] [address] [id number] [place] [address] Sep, [facility] [place] [facility] [address] [id number] [place] [address] Aug, [facility] [place] [facility] [address] [id number] [place] [address] Aug, [facility] [place] [facility] [address] [id number] [place] [address] Aug, [facility] [place] [facility] [address] [id number] [place] [address] Aug, [facility] [place] [facility] [address] [id number] [place] [address] Aug, [facility] [place] [facility] [address] [id number] [place] [address] Aug, [facility] [place] [facility] [address] [id number] [place] [address] Aug, [facility] [place] [facility] [address] [id number] [place] [address] Aug, [facility] [place] [facility] [address] [id number] [place] [address] Aug, [facility] [place] [facility] [address] [id number] [place] [address] Aug, [facility] [place] [facility] [address] [id number] [place] [address] Aug, [facility] [place] [facility] [address] [id number] [place] [address] Jul, [facility] [place] [facility] [address] [id number] [place] [address] Jul, [facility] [place] [facility] [address] [id number] [place] [address] Jul, [facility] [place] [facility] [address] [id number] [place] [address] Jul, [facility] [place] [facility] [address] [id number] [place] [address] Jul, [facility] [place] [facility] [address] [id number] [place] [address] Jul, [facility] [place] [facility] [address] [id number] [place] [address] Jul, [facility] [place] [facility] [address] [id number] [place] [address] Jul, [facility] [place] [facility] [address] [id number] [place] [address] Jul, [facility] [place] [facility] [address] [id number] [place] [address] Jul, [facility] [place] [facility] [address] [id number] [place] [address] June, [facility] [place] [facility] [address] [id number] [place] [address] June, [facility] [place] [facility] [address] [id number] [place] [address] June, [facility] [address] [id number] [place] [address] June, [facility] [place] [facility] [address] [id number] [place] [address] June, [facility] [place] [facility] [address] [id number] [place] [address] June, [facility] [address] [id number] [place] [address] June, [facility] [place] [facility] [address] [id number] [place] [address] June, [facility] [address] [id number] [place] [address] June, [facility] [address] [id number] [place] [address] June, [facility] [address] [id number] [place] [address] June, [facility] [place] [facility] [address] [id number] [place] [address] June, [facility] [place] [facility] [address] [id number] [place] [address] June, [facility] [place] [facility] [address] [id number] [place] [address] June, [facility] [place] [facility] [address] [id number] [place] [address] June, [facility] [place] [facility] [address] [id number] [place] [address] June, [facility] [place] [facility] [address] [id number] [place] [address] June, [facility] [place] [facility] [address] [id number] [place] [address] May, [facility] [place] [facility] [address] [id number] [place] [address] May, [facility] [place] [facility] [address] [id number] [place] [address] May, [facility] [place] [facility] [address] [id number] [place] [address] May, [facility] [place] [facility] [address] [id number] [place] [address] May, [facility] [place] [facility] [address] [id number] [place] [address] May, [facility] [place] [facility] [address] [id number] [place] [address] May, [facility] [place] [facility] [address] [id number] [place] [address] May, [facility] [place] [facility] [address] [id number] [place] [address] May, [facility] [place] [facility] [address] [id number] [place] [address] May, [facility] [place] [facility] [address] [id number] [place] [address] Apr, [facility] [place] [facility] [address] [id number] [place] [address] Apr, [facility] [place] [facility] [address] [id number] [place] [address] Apr, [facility] [place] [facility] [address] [id number] [place] [address] Apr, [facility] [place] [facility] [address] [id number] [place] [address] Apr, [facility] [place] [facility] [address] [id number] [place] [address] Apr, [facility] [place] [facility] [address] [id number] [place] [address] 13 Apr, 2013 [facility] [place] [facility] [address] [id number] [place] [address] 13 Apr, 2013 [facility] [place] [facility] [address] [id number] [place] [address] 07 Apr, 2013 [facility] [place] [facility] [address] [id number] [place] [address] Apr, [facility] [place] [facility] [address] [id number] [place] [address] Mar, [facility] [place] [facility] [address] [id number] [place] [address] Mar, [facility] [place] [facility] [address] [facility] [id number] [place] [address] Mar, [facility] [place] [facility] [address] [id number] [place] [address] Mar, [facility] [place] [facility] [address] [id number] [place] [address] Mar, [facility] [place] [facility] [address] [facility] [id number] [place] [address] Mar, [facility] [place] [facility] [address] [facility] [id number] [place] [address] Mar, [facility] [place] [facility] [address] [facility] [id number] [place] [address] Mar, [facility] [place] [facility] [address] [facility] [id number] [place] [address] Mar, [facility] [place] [facility] [address] [id number] [place] [address] Mar, [facility] [place] [facility] [address] [facility] [id number] [place] [address] 07 Mar, 2013 [facility] [place] [facility] [address] [facility] [id number] [place] [address] Mar, [facility] [address] [id number] [place] [address] Mar, [facility] [place] [facility] [address] [id number] [place] [address] Feb, [facility] [place] [facility] [address] [id number] [place] [address] Feb, [facility] [place] [facility] [address] [id number] [place] [address] Feb, [facility] [place] [facility] [address] [id number] [place] [address] Feb, [facility] [place] [facility] [address] [id number] [place] [address] Feb, [facility] [place] [facility] [address] [id number] [place] [address] Feb, [facility] [place] [facility] [address] [id number] [place] [address] Feb, [facility] [place] [facility] [address] [id number] [place] [address] Feb, [facility] [place] [facility] [address] [id number] [place] [address] Feb, [facility] [place] [facility] [address] [id number] [place] [address] Feb, [facility] [place] [facility] [address] [id number] [place] [address] Jan, [facility] [place] [facility] [address] [id number] [place] [address] Jan, [facility] [place] [facility] [address] [id number] [place] [address] Jan, [facility] [place] [facility] [address] [id number] [place] [address] Jan, [facility] [place] [facility] [address] [id number] [place] [address] Jan, [facility] [address] [id number] [place] [address] Jan, [facility] [place] [facility] [address] [id number] [place] [address] Jan, [facility] [address] [id number] [place] [address] Jan, [facility] [place] [facility] [address] [id number] [place] [address] Jan, [facility] [address] [id number] [place] [address] Jan, [facility] [place] [facility] [address] [id number] [place] [address] Jan, [facility] [place] [facility] [address] [id number] [place] [address] Jan, [facility] [address] [id number] [place] [address] Jan, [facility] [place] [facility] [address] [id number] [place] [address] Jan, [facility] [place] [facility] [address] [id number] [place] [address] Jan, [facility] [place] [facility] [address] [id number] [place] [address] Jan, [facility] [place] [facility] [address] [id number] [place] [address] Dec, [facility] [place] [facility] [address] [id number] [place] [address] Dec, [facility] [place] [facility] [address] [id number] [place] [address] Dec, [facility] [place] [facility] [address] [id number] [place] [address] Dec, [facility] [place] [facility] [address] [id number] [place] [address] 15 Dec, 2012 [facility] [place] [facility] [address] [id number] [place] [address] 15 Dec, 2012 [facility] [place] [facility] [address] [id number] [place] [address] Dec, [facility] [place] [facility] [address] [id number] [place] [address] Dec, [facility] [place] [facility] [address] [address] [id number] [place] [address] Dec, [facility] [place] [facility] [address] [id number] [place] [address] Dec, [facility] [place] [facility] [address] [id number] [place] [address] Nov, [facility] [place] [facility] [address] [id number], [place] [address] 30 Nov, 2012 [facility] [place] [facility] [address] [id number] [place] [address] Nov, [facility] [place] [facility] [address] [id number], [place] [address] Nov, [facility] [place] [facility] [address] [id number], [place] [address] 18 Nov, 2012 [facility] [place] [facility] [address] [id number], [place] [address] 18 Nov, 2012 [facility] [place] [facility] [address] [id number] [place] [address] 14 Nov, 2012 [facility] [place] [facility] [address] [id number], [place] [address] 14 Nov, 2012 [facility] [place] [facility] [address] [id number], [place] [address] 09 Nov, 2012 [facility] [place] [facility] [address] [id number] [place] [address] 09 Nov, 2012 [facility] [address] [id number] [place] [address] 07 Nov, 2012 [facility] [place] [facility] [address] [id number] [place] [address] 05 Nov, 2012 [facility] [place] [facility] [address] [id number] [place] [address] 20 Oct, 2012 [facility] [place] [facility] [address] [id number] [place] [address] 20 Oct, 2012 [facility] [place] [facility] [address] [id number] [place] [address] 19 Oct, 2012 [facility] [place] [facility] [address] [id number] [place] [address] 18 Oct, 2012 [facility] [address] [id number] [place] [address] 13 Oct, 2012 [facility] [place] [facility] [address] [id number] [place] [address] 05 Oct, 2012 [facility] [place] [facility] [address] [id number] [place] [address] 04 Oct, 2012 [facility] [place] [facility] [address] [id number] [place] [address] 28 Sep, 2012 [facility] [place] [facility] [address] [id number] [place] [address] Sep, [facility] [place] [facility] [address] [id number] [place] [address] Sep, [facility] [place] [facility] [address] [id number] [place] [address] Sep, [facility] [place] [facility] [address] [id number] [place] [address] Sep, [facility] [place] [facility] [address] [id number] [place] [address] 08 Sep, 2012 [facility] [place] [facility] [address] [id number] [place] [address] Sep, [facility] [place] [facility] [address] [id number] [place] [address] Aug, [facility] [place] [facility] [address] [id number] [place] [address] Aug, [facility] [place] [facility] [address] [id number] [place] [address] Aug, [facility] [place] [facility] [address] [id number] [place] [address] Aug, [facility] [place] [facility] [address] [id number] [place] [address] Aug, [facility] [place] [facility] [address] [id number] [place] [address] Aug, [facility] [place] [facility] [address] [id number] [place] [address] Aug, [facility] [place] [facility] [address] [id number] [place] [address] Aug, [facility] [place] [facility] [address] [id number] [place] [address] Aug, [facility] [place] [facility] [address] [id number] [place] [address] Jul, [facility] [place] [facility] [address] [id number] [place] [address] Jul, [facility] [place] [facility] [address] [id number] [place] [address] Jul, [facility] [place] [facility] [address] [id number] [place] [address] Jul, [facility] [place] [facility] [address] [id number] [place] [address] Jul, [facility] [place] [facility] [address] [id number] [place] [address] Jul, [facility] [address] [id number] [place] [address] Jul, [facility] [address] [id number] [place] [address] June, [facility] [address] [id number] [place] [address] June, [facility] [address] [id number] [place] [address] June, [facility] [address] [id number] [place] [address] June, [facility] [address] [id number] [place] [address] June, [facility] [address] [id number] [place] [address] June, [facility] [address] [id number] [place] [address] June, [facility] [address] [id number] [place] [address] June, [facility] [address] [id number] [place] [address] May, [facility] [address] [id number] [place] [address] May, [facility] [place] [facility] [address] [id number] [place] [address] 16 May, 2012 [facility] [place] [facility] [address] [id number] [place] [address] 15 May, 2012 [facility] [place] [facility] [address] [id number] [place] [address] 08 May, 2012 [facility] [place] [facility] [address] [id number] [place] [address] May, [facility] [place] [facility] [address] [id number] [place] [address] 04 May, 2012 [facility] [address] [id number] [place] [address] May, [facility] [address] [id number] [place] [address] May, [facility] [address] [id number] [place] [address] May, [facility] [address] [id number] [place] [address] Apr, [facility] [address] [id number] [place] [address] 19 Apr, 2012 [facility] [address] [id number] [place] [address] 18 Apr, 2012 [facility] [address] [id number] [place] [address] 15 Apr, 2012 [facility] [address] [id number] [place] [address] 13 Apr, 2012 [facility] [address] [id number] [place] [address] 05 Apr, 2012 [facility] [address] [facility] [id number] [place] [address] 04 Apr, 2012 [facility] [address] [id number] [place] [address] 28 Mar, 2012 [facility] [address] [id number] [place] [address] Mar, [facility] [address] [id number] [place] [address] Mar, [facility] [address] [id number] [place] [address] Mar, [facility] [address] [id number] [place] [address] Mar, [facility] [place] [facility] [address] [id number] [place] [address] 07 Mar, 2012 [facility] [place] [facility] [address] [id number] [place] [address] 06 Mar, 2012 [facility] [place] [facility] [address] [id number] [place] [address] 05 Mar, 2012 [facility] [place] [facility] [address] [id number] [place] [address] Mar, [facility] [place] [facility] [address] [id number] [place] [address] Feb, [facility] [place] [facility] [address] [id number] [place] [address] Feb, [facility] [place] [facility] [address] [id number] [place] [address] Feb, [facility] [place] [facility] [address] [id number] [place] [address] Feb, [facility] [place] [facility] [address] [id number] [place] [address] Feb, [facility] [place] [facility] [address] [id number] [place] [address] Feb, [facility] [place] [facility] [address] [id number] [place] [address] Feb, [facility] [place] [facility] [address] [id number] [place] [address] Jan, [facility] [place] [facility] [address] [id number] [place] [address] Jan, [facility] [place] [facility] [address] [id number] [place] [address] Jan, [facility] [place] [facility] [address] [id number] [place] [address] Jan, [facility] [place] [facility] [address] [id number] [place] [address] 27 Jan, 2012 [facility] [address] [id number] [place] [address] 27 Jan, 2012 [facility] [place] [facility] [address] [id number] [place] [address] 14 Jan, 2012 [facility] [address] [id number] [place] [address] Jan, [facility] [place] [facility] [address] [id number] [place] [address] 10 Jan, 2012 [facility] [address] [id number] [place] [address] Jan, [facility] [address] [id number] [place] [address] 04 Jan, 2012 [facility] [address] [id number] [place] [address] Jan, [facility] [address] [id number] [place] [address] Jan, [facility] [place] [facility] [address] [id number] [place] [address] Dec, [facility] [address] [id number] [place] [address] 29 Dec, 2011 [facility] [place] [facility] [address] [id number] [place] [address] Dec, [facility] [place] [facility] [address] [id number] [place] [address] Dec, [facility] [place] [facility] [address] [id number] [place] [address] Dec, [facility] [place] [facility] [address] [id number] [place] [address] Dec, [facility] [place] [facility] [address] [id number] [place] [address] Dec, [facility] [place] [facility] [address] [id number] [place] [address] Dec, [facility] [place] [facility] [address] [id number] [place] [address] Dec, [facility] [place] [facility] [address] [id number] [place] [address] Dec, [facility] [place] [facility] [address] [id number] [place] [address] Dec, [facility] [place] [facility] [address] [id number] [place] [address] Dec, [facility] [place] [facility] [address] [id number] [place] [address] Dec, [facility] [place] [facility] [address] [id number] [place] [address] Dec, [facility] [place] [facility] [address] [id number], [place] [address] Nov, [facility] [place] [facility] [address] [id number] [place] [address] Nov, [facility] [place] [facility] [address] [facility] [id number], [place] [address] Nov, [facility] [place] [facility] [address] [id number], [place] [address] Nov, [facility] [place] [facility] [address] [id number], [place] [address] Nov, [facility] [place] [facility] [address] [id number], [place] [address] Nov, [facility] [place] [facility] [address] [id number], [place] [address] Nov, [facility] [place] [facility] [address] [facility] [id number], [place] [address] Nov, [facility] [place] [facility] [address] [id number], [place] [address] Nov, [facility] [place] [facility] [address] [id number] [place] [address] Nov, [facility] [place] [facility] [address] [id number] [place] [address] Nov, [facility] [place] [facility] [address] [facility] [id number] [place] [address] Nov, [facility] [place] [facility] [address] [id number] [place] [address] Nov, [facility] [place] [facility] [address] [id number] [place] [address] 25 Oct, 2011 [facility] [place] [facility] [address] [id number] [place] [address] 25 Oct, 2011 [facility] [place] [facility] [address] [facility] [id number] [place] [address] 24 Oct, 2011 [facility] [place] [facility] [address] [id number] [place] [address] 17 Oct, 2011 [facility] [place] [facility] [address] [id number] [place] [address] 14 Oct, 2011 [facility] [place] [facility] [address] [facility] [id number] [place] [address] 11 Oct, 2011 [facility] [place] [facility] [address] [id number] [place] [address] 06 Oct, 2011 [facility] [place] [facility] [address] [id number], [place] [address] Sep, [facility] [place] [facility] [address] [id number] [place] [address] Sep, [facility] [place] [facility] [address] [facility] [id number], [place] [address] Sep, [facility] [place] [facility] [address] [facility] [id number] [place] [address] Sep, [facility] [place] [facility] [address] [facility] [id number] [place] [address] Aug, IMMUNIZATIONS No Known Immunizations SOCIAL HISTORY Never Assessed REASON FOR [place] [place] [...]
--- OUTSIDE RECORDS SUMMARY | 2018-07-22 19:03 | XMS REPORT ---
Author Author LAURY MAN [facility] eClinicalWorks Address Unknown Phone Unavailable Care Team Providers Care Excavating Supervisor Name Role Phone LAURY MAN CP Unavailable Allergies No Known Allergies Problems Problem Type Condition Code Onset Dates Condition Status Problem Migraine, unspecified without mention of intractable migraine without mention of status migrainosus 346.90 Active Problem Anxiety state, unspecified 300.00 Active Problem Other abnormal glucose 790.29 Active Assessment Arthropathy, unspecified M12.9 Active Problem Unspecified essential hypertension 401.9 Active Problem 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
--- OUTSIDE RECORDS SUMMARY | 2018-07-22 19:03 | XMS REPORT ---
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
--- OUTSIDE RECORDS SUMMARY | 2018-07-22 19:03 | XMS REPORT ---
Author Author LAURY MAN [facility] eClinicalWorks Address Unknown Phone Unavailable Care Team Providers Care Auto Parts Delivery Driver Name Role Phone LAURY MAN CP Unavailable Allergies No Known Allergies Problems Problem Type Condition ICD-9 Code Onset Dates Condition Status Problem Spontaneous ecchymoses 782.7 Active Problem Chronic airway obstruction, not elsewhere classified 496 Active Problem Unspecified arthropathy, site unspecified 716.90 Active Problem Unspecified essential hypertension 401.9 Active Problem Pneumonia, organism unspecified 486 Active Problem Loss of weight 783.21 Active Problem Unspecified venous (peripheral) insufficiency 459.81 Active Problem Dyspepsia and other specified disorders of function of stomach 536.8 Active Problem 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 Problem Other acute sinusitis 461.8 Active Problem Migraine, unspecified without mention of intractable migraine without mention of status migrainosus 346.90 Active Problem Hypercalcemia 275.42 Active Problem Cough 786.2 Active Problem Acute bronchitis 466.0 Active Problem Anxiety state, unspecified 300.00 Active Problem Lumbago 724.2 Active Problem Other abnormal glucose 790.29 Active Problem 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
--- OUTSIDE RECORDS SUMMARY | 2018-07-22 19:03 | XMS REPORT ---
Author Author LAURY MAN [facility] eClinicalWorks Address Unknown Phone Unavailable Care Team Providers Care Sloop Captain Name Role Phone LAURY MAN CP Unavailable [...] Instructions Start Date End Date Status Dosage Robitussin Chest Congestion [facility] [address]-67 100 MG/5ML Orally every 4 hrs Oct 18, 2014 Oct 23, 2014 10 ml as needed Results No Known Results Summary Purpose eClinicalWorks Submission
--- OUTSIDE RECORDS SUMMARY | 2018-07-22 19:03 | XMS REPORT ---
Author Author LAURY MAN [facility] [employer] Address Unknown Phone Unavailable Care Team Providers Care Network Development Coordinator Name Role Phone LAURY MAN CP Unavailable [...]
--- OUTSIDE RECORDS SUMMARY | 2018-07-22 19:03 | XMS REPORT ---
Author Author LAURY MAN [facility] eClinicalWorks Address Unknown Phone Unavailable Care Team Providers Care Stained Glass Window Designer Name Role Phone LAURY MAN CP Unavailable [...] disorder, not elsewhere classified 311 Active Medications No Known Medications Results No Known Results Summary Purpose eClinicalWorks Submission
--- OUTSIDE RECORDS SUMMARY | 2018-07-22 19:03 | XMS REPORT ---
Author LAURY Garcia [facility] eClinicalWorks Address Unknown Phone Unavailable Care Team Providers Care Nozzle And Sleeve Worker Name Role Phone LAURY MAN CP Unavailable Allergies, Adverse Reactions, Alerts Substance Reaction Event Type Creon Info Not Available Drug Allergy Restoril Info Not Available Drug Allergy Aspirin Info Not Available Drug Allergy Xanax Info Not Available Drug Allergy Valium Info Not Available Drug Allergy Ambien Info Not Available Drug Allergy Vioxx passed out, breathing problems Drug Allergy Tramadol stomach bleed Drug Allergy Trazodone Info Not Available Drug Allergy Hydrocodone-acetaminophen 10-325 Mg Tablet pruritis Non Drug Allergy Zoloft 50 Mg Tablet Info Not Available Non Drug Allergy Penicillins seizures Non Drug Allergy Sulfa(sulfonamide Antibiotics) Info Not Available Non Drug Allergy Nsaids (non-steroidal Anti-inflammatory Drug) stomach bleed Non Drug Allergy Bee Venom Info Not Available Non Drug Allergy Problems Problem Type Condition ICD-9 Code Onset Dates Condition Status Problem Migraine, unspecified without mention of intractable migraine without mention of status migrainosus 346.90 Active Problem Anxiety state, unspecified 300.00 Active Problem Other abnormal glucose 790.29 Active Assessment Lumbago 724.2 Active Problem Unspecified essential hypertension 401.9 Active [...] Instructions Start Date End Date Status Dosage Lipitor [facility] [address]-10 40 Orally Once a day 1 tablet PredniSONE (Jhony) [facility] [address]-65 10 MG Orally not defined Omnicef NDC 0 not defined Lisinopril [facility] 92625312873 20 MG TAKE 1 TABLET BY ORAL ROUTE 1 TIME PER DAY Hydrochlorothiazide [facility] 18539326065 25 MG take 1 tablet by Oral route 1 time per day Phenergan [facility] [address]-17 25 MG Rectal every 6 hrs June 17, 2014 1 suppository as needed Lorazepam [facility] [address]-85 0.5 MG TAKE ONE TABLET BY MOUTH UPTO TWICE DAILY NEEDED FOR ANXIETY*MUST LAST 30 DAYS* Tricor [facility] [address]-36 145 MG Orally Once a day 1 tablet Doxycycline Hyclate [facility] [address]-09 100 MG Orally Twice a day June 17, 2014 1 capsule Promethazine HCl [facility] 95910907699 25 MG 1 Tablet by Oral route every 4 hours Imitrex [facility] [address]-51 100 mg Feb 14, 2014 1 tablet by Oral route 1 time per day PRN (Script must last one month) Albuterol Sulfate [facility] [address]-55 0.63 mg/3 mL Nov 01, 2013 3 Ml by Inhalation route 4 times per day Diphenoxylate-Atropine [facility] 25127702117 2.5-0.025 MG TAKE TWO TABLETS BY MOUTH UP TO FOUR TIMES DAILY NEEDED HydrOXYzine Pamoate [facility] 80595461777 25 MG TAKE 1 CAPSULE BY ORAL ROUTE 4 TIMES PER DAY FOR ITCHING Robitussin Chest Congestion [facility] [address]-40 100 MG/5ML Orally every 4 hrs Oct 18, 2014 Oct 23, 2014 10 ml as needed Vistaril [facility] 13952970342 25 MG take 1 capsule by Oral route 4 times per day for itching Lomotil [facility] [address]-91 2.5-0.025 MG Mar 11, 2014 2 tablet by Oral route 4 times per day PRN Gabapentin [facility] [id number] 300 MG TAKE 2 CAPSULES BY ORAL ROUTE 3 TIMES PER DAY Omeprazole [facility] [id number] 20 MG Orally Once a day 1 capsule Procedures Procedure Coding System Code Date Office Visit, Est Pt., Level 2 CPT-4 84336 Oct 20, 2014 Vital Signs Date/Time: Oct 20, 2014 Temperature 98.1 F Weight 137.9 lbs Height 67 in BMI 21.60 Index Blood Pressure Diastolic 70 mmHg Blood Pressure Systolic 140 mmHg Cardiac Monitoring Heart Rate 90 bpm Results No Known Results Summary Purpose eClinicalWorks Submission
--- OUTSIDE RECORDS SUMMARY | 2018-07-22 19:03 | XMS REPORT ---
Author Author LAURY MAN [facility] eClinicalWorks Address Unknown Phone Unavailable Care Team Providers Care In Process Inspector Name Role Phone LAURY MAN CP Unavailable [...] End Date Status Dosage Robitussin Chest Congestion [facility] [address]-69 100 MG/5ML Orally every 4 hrs Oct 18, 2014 Oct 23, 2014 10 ml as needed Results No Known Results Summary Purpose eClinicalWorks Submission
--- OUTSIDE RECORDS SUMMARY | 2018-07-22 19:03 | XMS REPORT ---
Author Author LAURY MAN [facility] eClinicalWorks Address Unknown Phone Unavailable Care Team Providers Care Personnel Quality Assurance Auditor Name Role Phone LAURY MAN CP Unavailable [...]
--- OUTSIDE RECORDS SUMMARY | 2018-07-22 19:03 | XMS REPORT ---
Author Author LAURY MAN [facility] eClinicalWorks Address Unknown Phone Unavailable Care Team Providers Care [employer] Crewmember Name Role Phone LAURY MAN CP Unavailable [...] Start Date End Date Status Dosage Lorazepam [facility] [address]-34 0.5 MG TAKE ONE TABLET BY MOUTH [employer] TWICE DAILY NEEDED FOR ANXIETY*MUST LAST 30 DAYS* Results No Known Results Summary Purpose eClinicalWorks Submission
--- OUTSIDE RECORDS SUMMARY | 2018-07-22 19:03 | XMS REPORT ---
Author Author LAURY MAN [facility] eClinicalWorks Address Unknown Phone Unavailable Care Team Providers Care Director Private [employer] Therapy Agency Name Role Phone LAURY MAN CP Unavailable [...]
--- OUTSIDE RECORDS SUMMARY | 2018-07-22 19:03 | XMS REPORT ---
Author Author LAURY MAN [facility] eClinicalWorks Address Unknown Phone Unavailable Care Team Providers Care Flour Inspector Name Role Phone LAURY MAN CP [...]
--- OUTSIDE RECORDS SUMMARY | 2018-07-22 19:03 | XMS REPORT ---
Author Author LAURY MAN [facility] [employer] Address Unknown Phone Unavailable Care Team Providers Care Accounting Analyst Name Role Phone LAURY MAN CP Unavailable [...]
--- OUTSIDE RECORDS SUMMARY | 2018-07-22 19:05 | XMS REPORT | Continuity of Care Document ---
Author Organization Unknown Address Unknown Allergies Active Description Code Type Severity Reaction Onset Reported/Identified Relationship to Patient Clinical Status Yes NSAIDS (Non-Steroidal Anti-Inflamma [id number] Drug Allergy Unknown N/A 10/02/2006 Yes Penicillins [id number] Drug Allergy Unknown N/A 10/02/2006 Yes rofecoxib [id number] Drug Allergy Unknown N/A 10/02/2006 Yes Sulfa (Sulfonamide Antibiotics) [id number] Drug Allergy Unknown N/A 10/02/2006 Yes tramadol [id number] Drug Allergy Unknown PT CAN TAKE MOR 10/02/2006 Yes trazodone [id number] Drug Allergy Unknown N/A 10/02/2006 Yes flurbiprofen [id number] Drug Allergy Mild N/A 07/23/2008 Yes aspirin [id number] Drug Allergy Mild N/A 08/09/2008 Yes amylase [id number] Drug Allergy Mild N/A 05/04/2010 Yes lipase [id number] Drug Allergy Mild N/A 05/04/2010 Yes protease [id number] Drug Allergy Mild N/A 05/04/2010 Yes Ambien Drug Allergy N/A N/A 09/16/2011 Yes aspirin Drug Allergy N/A N/A 09/16/2011 Yes BEE VENOM OA N/A N/A 09/16/2011 Yes Creon Drug Allergy N/A N/A 09/16/2011 Yes NSAIDS (Non-Steroidal Anti-Inflammatory Drug) Drug Allergy N/A N/A 09/16/2011 Yes Penicillins Drug Allergy N/A N/A 09/16/2011 Yes Restoril Drug Allergy N/A N/A 09/16/2011 Yes Sulfa(Sulfonamide Antibiotics) Drug Allergy N/A N/A 09/16/2011 Yes tramadol Drug Allergy N/A N/A 09/16/2011 Yes trazodone Drug Allergy N/A N/A 09/16/2011 Yes Valium Drug Allergy N/A N/A 09/16/2011 Yes Vioxx Drug Allergy N/A N/A 09/16/2011 Yes Xanax Drug Allergy N/A N/A 09/16/2011 Yes Ambien Drug Allergy 09/16/2011 Yes aspirin Drug Allergy 09/16/2011 Yes BEE VENOM OA 09/16/2011 Yes Creon Drug Allergy 09/16/2011 Yes NSAIDS (Non-Steroidal Anti-Inflammatory Drug) Drug Allergy 09/16/2011 Yes Penicillins Drug Allergy 09/16/2011 Yes Restoril Drug Allergy 09/16/2011 Yes Sulfa(Sulfonamide Antibiotics) Drug Allergy 09/16/2011 Yes tramadol Drug Allergy 09/16/2011 Yes trazodone Drug Allergy 09/16/2011 Yes Valium Drug Allergy 09/16/2011 Yes Vioxx Drug Allergy 09/16/2011 Yes Xanax Drug Allergy 09/16/2011 Yes hydrocodone-acetaminophen 10-325 mg tablet Drug Allergy N/A N/A 01/14/2012 Yes hydrocodone-acetaminophen 10-325 mg tablet Drug Allergy 01/14/2012 Yes alprazolam [id number] Drug Allergy Unknown N/A 10/02/2013 Yes diazepam [id number] Drug Allergy Unknown N/A 10/02/2013 Yes Zoloft 50 mg tablet Drug Allergy N/A N/A 11/01/2013 Medications There is no data. Problems Date Dx Coded Attending Type Code Diagnosis Diagnosed By 09/16/2011 LAURY MAN MD CHRONIC AIRWAY OBSTRUCTION NOT ELSEWHERE CLASSIFIED 09/16/2011 LAURY MAN MD 536.8 DYSPEPSIA AND OTHER SPECIFIED DISORDERS OF FUNCTION OF STOMACH 09/16/2011 LAURY MAN MD 716.90 UNSPECIFIED ARTHROPATHY SITE UNSPECIFIED 09/16/2011 LAURY MAN MD CHRONIC AIRWAY OBSTRUCTION NOT ELSEWHERE CLASSIFIED 09/16/2011 LAURY MAN MD 536.8 DYSPEPSIA AND OTHER SPECIFIED DISORDERS OF FUNCTION OF STOMACH 09/16/2011 LAURY MAN MD 716.90 UNSPECIFIED ARTHROPATHY SITE UNSPECIFIED 09/16/2011 LAURY MAN MD CHRONIC AIRWAY OBSTRUCTION NOT ELSEWHERE CLASSIFIED 09/16/2011 LAURY MAN MD 536.8 DYSPEPSIA AND OTHER SPECIFIED DISORDERS OF FUNCTION OF STOMACH 09/16/2011 LAURY MAN MD 716.90 UNSPECIFIED ARTHROPATHY SITE UNSPECIFIED 09/16/2011 ELY RIVERA APRN R 496 CHRONIC AIRWAY OBSTRUCTION NOT ELSEWHERE CLASSIFIED 09/16/2011 ELY RIVERA APRN R 536.8 DYSPEPSIA AND OTHER SPECIFIED DISORDERS OF FUNCTION OF STOMACH 09/16/2011 NATY RIVERA APRNIA R 716.90 UNSPECIFIED ARTHROPATHY SITE UNSPECIFIED 09/16/2011 LAURY MAN MD CHRONIC AIRWAY OBSTRUCTION NOT ELSEWHERE CLASSIFIED 09/16/2011 LAURY MAN MD 536.8 DYSPEPSIA AND OTHER SPECIFIED DISORDERS OF FUNCTION OF STOMACH 09/16/2011 LAUYR MAN MD6.90 UNSPECIFIED ARTHROPATHY SITE UNSPECIFIED 09/16/2011 LAURY MAN MD CHRONIC AIRWAY OBSTRUCTION NOT ELSEWHERE CLASSIFIED 09/16/2011 LAURY MAN MD 53Marlyn.8 DYSPEPSIA AND OTHER SPECIFIED DISORDERS OF FUNCTION OF STOMACH 09/16/2011 LAURY MAN MD.90 UNSPECIFIED ARTHROPATHY SITE UNSPECIFIED 09/16/2011 LAURY MAN MD CHRONIC AIRWAY OBSTRUCTION NOT ELSEWHERE CLASSIFIED 09/16/2011 LAURY MAN MD 536.8 DYSPEPSIA AND OTHER SPECIFIED DISORDERS OF FUNCTION OF STOMACH 09/16/2011 LAURY MAN MD 716.90 UNSPECIFIED ARTHROPATHY SITE UNSPECIFIED 09/16/2011 496 CHRONIC AIRWAY OBSTRUCTION NOT ELSEWHERE CLASSIFIED 09/16/2011 536.8 DYSPEPSIA AND OTHER SPECIFIED DISORDERS OF FUNCTION OF STOMACH 09/16/2011 716.90 UNSPECIFIED ARTHROPATHY SITE UNSPECIFIED 09/16/2011 496 CHRONIC AIRWAY OBSTRUCTION NOT ELSEWHERE CLASSIFIED 09/16/2011 536.8 DYSPEPSIA AND OTHER SPECIFIED DISORDERS OF FUNCTION OF STOMACH 09/16/2011 716.90 UNSPECIFIED ARTHROPATHY SITE UNSPECIFIED 09/16/2011 LAURY MAN MD6 CHRONIC AIRWAY OBSTRUCTION NOT ELSEWHERE CLASSIFIED 09/16/2011 LAURY MAN MD 536.8 DYSPEPSIA AND OTHER SPECIFIED DISORDERS OF FUNCTION OF STOMACH 09/16/2011 LAURY MAN MD.90 UNSPECIFIED ARTHROPATHY SITE UNSPECIFIED 09/16/2011 LAURY MAN MD6 CHRONIC AIRWAY OBSTRUCTION NOT ELSEWHERE CLASSIFIED 09/16/2011 LAURY MAN MD 536.8 DYSPEPSIA AND OTHER SPECIFIED DISORDERS OF FUNCTION OF STOMACH 09/16/2011 LAURY MAN MD.90 UNSPECIFIED ARTHROPATHY SITE UNSPECIFIED 09/16/2011 WHITE DDS, MONICA D 496 CHRONIC AIRWAY OBSTRUCTION NOT ELSEWHERE CLASSIFIED 09/16/2011 WHITE DDS, MONICA D 536.8 DYSPEPSIA AND OTHER SPECIFIED DISORDERS OF FUNCTION OF STOMACH 09/16/2011 WHITE DDS, MONICA Deras 716.90 UNSPECIFIED ARTHROPATHY SITE UNSPECIFIED 09/16/2011 LAURY MAN MD CHRONIC AIRWAY OBSTRUCTION NOT ELSEWHERE CLASSIFIED 09/16/2011 LAURY MAN MD.8 DYSPEPSIA AND OTHER SPECIFIED DISORDERS OF FUNCTION OF STOMACH 09/16/2011 LAURY MAN MD90 UNSPECIFIED ARTHROPATHY SITE UNSPECIFIED 09/16/2011 LAURY MAN MD CHRONIC AIRWAY OBSTRUCTION NOT ELSEWHERE CLASSIFIED 09/16/2011 LAURY MAN MD8 DYSPEPSIA AND OTHER SPECIFIED DISORDERS OF FUNCTION OF STOMACH 09/16/2011 LAURY MAN MD90 UNSPECIFIED ARTHROPATHY SITE UNSPECIFIED 09/16/2011 LAURY MAN MD CHRONIC AIRWAY OBSTRUCTION NOT ELSEWHERE CLASSIFIED 09/16/2011 LAURY MAN MD8 DYSPEPSIA AND OTHER SPECIFIED DISORDERS OF FUNCTION OF STOMACH 09/16/2011 LAURY MAN MD90 UNSPECIFIED ARTHROPATHY SITE UNSPECIFIED 09/16/2011 LAURY MAN MD CHRONIC AIRWAY OBSTRUCTION NOT ELSEWHERE CLASSIFIED 09/16/2011 LAURY MAN MD.8 DYSPEPSIA AND OTHER SPECIFIED DISORDERS OF FUNCTION OF STOMACH 09/16/2011 LAURY MAN MD90 UNSPECIFIED ARTHROPATHY SITE UNSPECIFIED 09/16/2011 LAURY MAN MD CHRONIC AIRWAY OBSTRUCTION NOT ELSEWHERE CLASSIFIED 09/16/2011 LAURY MAN MD8 DYSPEPSIA AND OTHER SPECIFIED DISORDERS OF FUNCTION OF STOMACH 09/16/2011 LAURY MAN MD90 UNSPECIFIED ARTHROPATHY SITE UNSPECIFIED 09/16/2011 LAURY MAN MD CHRONIC AIRWAY OBSTRUCTION NOT ELSEWHERE CLASSIFIED 09/16/2011 LAURY MAN MD.8 DYSPEPSIA AND OTHER SPECIFIED DISORDERS OF FUNCTION OF STOMACH 09/16/2011 LAURY MAN MD90 UNSPECIFIED ARTHROPATHY SITE UNSPECIFIED 09/16/2011 LAURY MAN MD CHRONIC AIRWAY OBSTRUCTION NOT ELSEWHERE CLASSIFIED 09/16/2011 LAURY MAN MD.8 DYSPEPSIA AND OTHER SPECIFIED DISORDERS OF FUNCTION OF STOMACH 09/16/2011 LAURY MAN MD UNSPECIFIED ARTHROPATHY SITE UNSPECIFIED 09/16/2011 LAURY MAN MD CHRONIC AIRWAY OBSTRUCTION NOT ELSEWHERE CLASSIFIED 09/16/2011 LAURY MAN MD.8 DYSPEPSIA AND OTHER SPECIFIED DISORDERS OF FUNCTION OF STOMACH 09/16/2011 LAURY MAN MD90 UNSPECIFIED ARTHROPATHY SITE UNSPECIFIED 09/16/2011 LAURY MAN MD CHRONIC AIRWAY OBSTRUCTION NOT ELSEWHERE CLASSIFIED 09/16/2011 LAURY MAN MD.8 DYSPEPSIA AND OTHER SPECIFIED DISORDERS OF FUNCTION OF STOMACH 09/16/2011 LAURY MAN MD90 UNSPECIFIED ARTHROPATHY SITE UNSPECIFIED 09/16/2011 LAURY MAN MD CHRONIC AIRWAY OBSTRUCTION NOT ELSEWHERE CLASSIFIED 09/16/2011 LAURY MAN MD8 DYSPEPSIA AND OTHER SPECIFIED DISORDERS OF FUNCTION OF STOMACH 09/16/2011 LAURY MAN MD UNSPECIFIED ARTHROPATHY SITE UNSPECIFIED 09/16/2011 LAURY MAN MD CHRONIC AIRWAY OBSTRUCTION NOT ELSEWHERE CLASSIFIED 09/16/2011 LAURY MAN MD.8 DYSPEPSIA AND OTHER SPECIFIED DISORDERS OF FUNCTION OF STOMACH 09/16/2011 LAURY MAN MD UNSPECIFIED ARTHROPATHY SITE UNSPECIFIED 09/16/2011 LAURY MAN MD CHRONIC AIRWAY OBSTRUCTION NOT ELSEWHERE CLASSIFIED 09/16/2011 LAURY MAN MD.8 DYSPEPSIA AND OTHER SPECIFIED DISORDERS OF FUNCTION OF STOMACH 09/16/2011 LAURY MAN MD UNSPECIFIED ARTHROPATHY SITE UNSPECIFIED 09/16/2011 LAURY MAN MD CHRONIC AIRWAY OBSTRUCTION NOT ELSEWHERE CLASSIFIED 09/16/2011 LAURY MAN MD.8 DYSPEPSIA AND OTHER SPECIFIED DISORDERS OF FUNCTION OF STOMACH 09/16/2011 LAURY MAN MD90 UNSPECIFIED ARTHROPATHY SITE UNSPECIFIED 09/16/2011 LUARY MAN MD CHRONIC AIRWAY OBSTRUCTION NOT ELSEWHERE CLASSIFIED 09/16/2011 LAURY MAN MD.8 DYSPEPSIA AND OTHER SPECIFIED DISORDERS OF FUNCTION OF STOMACH 09/16/2011 LAURY MAN MD90 UNSPECIFIED ARTHROPATHY SITE UNSPECIFIED 09/16/2011 LAURY MAN MD CHRONIC AIRWAY OBSTRUCTION NOT ELSEWHERE CLASSIFIED 09/16/2011 LAURY MAN MD.8 DYSPEPSIA AND OTHER SPECIFIED DISORDERS OF FUNCTION OF STOMACH 09/16/2011 LAURY MAN MD 716.90 UNSPECIFIED ARTHROPATHY SITE UNSPECIFIED 09/16/2011 LAURY MAN MD6 CHRONIC AIRWAY OBSTRUCTION NOT ELSEWHERE CLASSIFIED 09/16/2011 LAURY MAN MD.8 DYSPEPSIA AND OTHER SPECIFIED DISORDERS OF FUNCTION OF STOMACH 09/16/2011 LAURY MAN MD.90 UNSPECIFIED ARTHROPATHY SITE UNSPECIFIED 09/16/2011 LAURY MAN MD6 CHRONIC AIRWAY OBSTRUCTION NOT ELSEWHERE CLASSIFIED 09/16/2011 LAURY MAN MD.8 DYSPEPSIA AND OTHER SPECIFIED DISORDERS OF FUNCTION OF STOMACH 09/16/2011 LAURY MAN MD 716.90 UNSPECIFIED ARTHROPATHY SITE UNSPECIFIED 09/16/2011 LAURY MAN MD6 CHRONIC AIRWAY OBSTRUCTION NOT ELSEWHERE CLASSIFIED 09/16/2011 LAURY MAN MD.8 DYSPEPSIA AND OTHER SPECIFIED DISORDERS OF FUNCTION OF STOMACH 09/16/2011 LAURY MAN MD 71Marlyn.90 UNSPECIFIED ARTHROPATHY SITE UNSPECIFIED 10/17/2011 LAURY MAN MD2.7 SPONTANEOUS ECCHYMOSES 10/17/2011 LAURY MAN MD2.7 SPONTANEOUS ECCHYMOSES 10/17/2011 LAURY MAN MD2.7 SPONTANEOUS ECCHYMOSES 10/17/2011 ELY RIVERA APRN 782.7 SPONTANEOUS ECCHYMOSES 10/17/2011 LAURY MAN MD2.7 SPONTANEOUS ECCHYMOSES 10/17/2011 LAURY MAN MD2.7 SPONTANEOUS ECCHYMOSES 10/17/2011 LAURY MAN MD2.7 SPONTANEOUS ECCHYMOSES 10/17/2011 782.7 SPONTANEOUS ECCHYMOSES 10/17/2011 782.7 SPONTANEOUS ECCHYMOSES 10/17/2011 LAURY MAN MD2.7 SPONTANEOUS ECCHYMOSES 10/17/2011 LAURY MAN MD2.7 SPONTANEOUS ECCHYMOSES 10/17/2011 MONICA AVERY DDS 782.7 SPONTANEOUS ECCHYMOSES 10/17/2011 DONOVAN NIELSEN, LAURY Perera2.7 SPONTANEOUS ECCHYMOSES 10/17/2011 DONOVAN NIELSEN, LAURY Waller.7 SPONTANEOUS ECCHYMOSES 10/17/2011 DONOVAN NIELSEN, LAURY Waller.7 SPONTANEOUS ECCHYMOSES 10/17/2011 DONOVAN NIELSEN, LAURY Waller.7 SPONTANEOUS ECCHYMOSES 10/17/2011 DONOVAN NIELSEN, LAURY Waller.7 SPONTANEOUS ECCHYMOSES 10/17/2011 DONOVAN NIELSEN, LAURY Waller.7 SPONTANEOUS ECCHYMOSES 10/17/2011 DONOVAN NIELSEN, LAURY Waller.7 SPONTANEOUS ECCHYMOSES 10/17/2011 DONOVAN NIELSEN, LAURY Waller.7 SPONTANEOUS ECCHYMOSES 10/17/2011 DONOVAN NIELSEN, LAURY Waller.7 SPONTANEOUS ECCHYMOSES 10/17/2011 DONOVAN NIELSEN, LAURY Waller.7 SPONTANEOUS ECCHYMOSES 10/17/2011 DONOVAN NIELSEN, LAURY Waller.7 SPONTANEOUS ECCHYMOSES 10/17/2011 DONOVAN NIELSEN, LAURY Waller.7 SPONTANEOUS ECCHYMOSES 10/17/2011 DONOVAN NIELSEN, LAURY Waller.7 SPONTANEOUS ECCHYMOSES 10/17/2011 DONOVAN NIESLEN, LAURY Waller.7 SPONTANEOUS ECCHYMOSES 10/17/2011 DONOVAN NIELSEN, LAURY Waller.7 SPONTANEOUS ECCHYMOSES 10/17/2011 DONOVAN NIELSEN, LAURY Waller.7 SPONTANEOUS ECCHYMOSES 10/17/2011 DONOVAN NIELSEN, LAURY Waller.7 SPONTANEOUS ECCHYMOSES 10/17/2011 DONOVAN NIELSEN, LAURY Waller.7 SPONTANEOUS ECCHYMOSES 11/14/2011 DONOVAN NIELSEN, LAURY 486 Pneumonia Organism Unspecified 11/14/2011 DONOVAN NIELSEN, LAURY 486 Pneumonia Organism Unspecified 11/14/2011 DONOVAN NIELSEN, LAURY 486 Pneumonia Organism Unspecified 11/14/2011 ELY RIVERA APRN 486 Pneumonia Organism Unspecified 11/14/2011 DONOVAN NIELSEN, LAURY 486 Pneumonia Organism Unspecified 11/14/2011 DONOVAN NIELSEN, LAURY 486 Pneumonia Organism Unspecified 11/14/2011 DONOVAN NIELSEN, LAURY 486 Pneumonia Organism Unspecified 11/14/2011 486 Pneumonia Organism Unspecified 11/14/2011 486 Pneumonia Organism Unspecified 11/14/2011 DONOVAN NIELSEN, LAURY 486 Pneumonia Organism Unspecified 11/14/2011 DONOVAN NIELSEN, LAURY 486 Pneumonia Organism Unspecified 11/14/2011 WHITE DDS, MONICA Deras 486 Pneumonia Organism Unspecified 11/14/2011 DONOVAN NIELSEN, LAURY 486 Pneumonia Organism Unspecified 11/14/2011 DONOVAN NIELSEN, LAURY 486 Pneumonia Organism Unspecified 11/14/2011 DONOVAN NIELSEN, LAURY 486 Pneumonia Organism Unspecified 11/14/2011 DONOVAN NIELSEN, LAURY 486 Pneumonia Organism Unspecified 11/14/2011 DONOVAN NIELSEN, LAURY 486 Pneumonia Organism Unspecified 11/14/2011 DONOVAN NIELSEN, LAURY 486 Pneumonia Organism Unspecified 11/14/2011 DONOVAN NIELSEN, LAURY 486 Pneumonia Organism Unspecified 11/14/2011 DONOVAN NIELSEN, LAURY 486 Pneumonia Organism Unspecified 11/14/2011 DONOVAN NIELSEN, LAURY 486 Pneumonia Organism Unspecified 11/14/2011 DONOVAN NIELSEN, LAURY 486 Pneumonia Organism Unspecified 11/14/2011 DONOVAN NEILSEN, LAURY 486 Pneumonia Organism Unspecified 11/14/2011 DONOVAN NIELSEN, LAURY 486 Pneumonia Organism Unspecified 11/14/2011 DONOVAN NIELSEN, LAURY 486 Pneumonia Organism Unspecified 11/14/2011 DONOVAN NIELSEN, LAURY 486 Pneumonia Organism Unspecified 11/14/2011 DONOVAN NIELSEN, LAURY 486 Pneumonia Organism Unspecified 11/14/2011 DONOVAN NIELSEN, LAURY 486 Pneumonia Organism Unspecified 11/14/2011 DONOVAN NIELSEN, LAURY 486 Pneumonia Organism Unspecified 11/14/2011 DONOVAN NIELSEN, LAURY 486 PNEUMONIA ORGANISM UNSPECIFIED 01/14/2012 DONOVAN NIELSEN, LAURY 401.9 UNSPECIFIED ESSENTIAL HYPERTENSION 01/14/2012 DONOVAN NIELSEN, LAURY 401.9 UNSPECIFIED ESSENTIAL HYPERTENSION 01/14/2012 DONOVAN NIELSEN, LAURY 401.9 UNSPECIFIED ESSENTIAL HYPERTENSION 01/14/2012 ELY RIVERA APRN 401.9 UNSPECIFIED ESSENTIAL HYPERTENSION 01/14/2012 DONOVAN NIELSEN, LAURY 401.9 UNSPECIFIED ESSENTIAL HYPERTENSION 01/14/2012 DONOVAN NIELSEN, LAURY 401.9 UNSPECIFIED ESSENTIAL HYPERTENSION 01/14/2012 DONOVAN NIELSEN, LAURY 401.9 UNSPECIFIED ESSENTIAL HYPERTENSION 01/14/2012 401.9 UNSPECIFIED ESSENTIAL HYPERTENSION 01/14/2012 401.9 UNSPECIFIED ESSENTIAL HYPERTENSION 01/14/2012 DONOVAN NIELSEN, LAURY 401.9 UNSPECIFIED ESSENTIAL HYPERTENSION 01/14/2012 DONOVAN NIELSEN, LAURY 401.9 UNSPECIFIED ESSENTIAL HYPERTENSION 01/14/2012 MONICA AVERY DDS 401.9 UNSPECIFIED ESSENTIAL HYPERTENSION 01/14/2012 DONOVAN NIELSEN, LAURY 401.9 UNSPECIFIED ESSENTIAL HYPERTENSION 01/14/2012 DONOVAN NIELSEN, LAURY 401.9 UNSPECIFIED ESSENTIAL HYPERTENSION 01/14/2012 DONOVAN NIELSEN, LAURY 401.9 UNSPECIFIED ESSENTIAL HYPERTENSION 01/14/2012 DONOVAN NIELSEN, LAURY 401.9 UNSPECIFIED ESSENTIAL HYPERTENSION 01/14/2012 DONOVAN NIELSEN, LAURY 401.9 UNSPECIFIED ESSENTIAL HYPERTENSION 01/14/2012 DONOVAN NIELSEN, LAURY 401.9 UNSPECIFIED ESSENTIAL HYPERTENSION 01/14/2012 DONOVAN NIELSEN, LAURY 401.9 UNSPECIFIED ESSENTIAL HYPERTENSION 01/14/2012 DONOVAN NIELSEN, LAURY 401.9 UNSPECIFIED ESSENTIAL HYPERTENSION 01/14/2012 DONOVAN NIELSEN, LAURY 401.9 UNSPECIFIED ESSENTIAL HYPERTENSION 01/14/2012 DONOVAN NIELSEN, LAURY 401.9 UNSPECIFIED ESSENTIAL HYPERTENSION 01/14/2012 DONOVAN NIELSEN, LAURY 401.9 UNSPECIFIED ESSENTIAL HYPERTENSION 01/14/2012 DONOVAN NIELSEN, LAURY 401.9 UNSPECIFIED ESSENTIAL HYPERTENSION 01/14/2012 DONOVAN NIELSEN, LAURY 401.9 UNSPECIFIED ESSENTIAL HYPERTENSION 01/14/2012 DONOVAN NIELSEN, LAURY 401.9 UNSPECIFIED ESSENTIAL HYPERTENSION 01/14/2012 DONOVAN NIELSEN, LAURY 401.9 UNSPECIFIED ESSENTIAL HYPERTENSION 01/14/2012 DONOVAN NIELSEN, LAURY 401.9 UNSPECIFIED ESSENTIAL HYPERTENSION 01/14/2012 DONOVAN NIELSEN, LAURY 401.9 UNSPECIFIED ESSENTIAL HYPERTENSION 02/21/2012 LAURY MAN MD 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 02/21/2012 LAURY MAN MD 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 02/21/2012 ELY RIVERA APRN 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 02/21/2012 LAURY MAN MD 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 02/21/2012 LAURY MAN MD 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 02/21/2012 LAURY MAN MD 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 02/21/2012 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 02/21/2012 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 02/21/2012 LAURY MAN MD 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 02/21/2012 LAURY MAN MD 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 02/21/2012 BENNIE DDS, MONICA Deras 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 02/21/2012 LAURY MAN MD 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 02/21/2012 LAURY MAN MD 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 02/21/2012 LAURY MAN MD 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 02/21/2012 LAURY MAN MD 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 02/21/2012 LAURY MAN MD 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 02/21/2012 LAURY MAN MD 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 02/21/2012 LAURY MAN MD 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 02/21/2012 LAURY MAN MD 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 02/21/2012 LAURY MAN MD 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 02/21/2012 LAURY MAN MD 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 02/21/2012 LAURY MAN MD 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 02/21/2012 LAURY MAN MD 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 02/21/2012 LAURY MAN MD 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 02/21/2012 LAURY MAN MD 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 02/21/2012 LAURY MAN MD 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 02/21/2012 LAURY MAN MD 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 02/21/2012 LAURY MAN MD 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 04/08/2012 ELY RIVERA APRN 786.2 cough 04/08/2012 LAURY MAN MD 786.2 Cough 04/08/2012 LAURY MAN MD 786.2 Cough 04/08/2012 LAURY MAN MD 786.2 Cough 04/08/2012 786.2 Cough 04/08/2012 786.2 Cough 04/08/2012 LAURY MAN MD 786.2 Cough 04/08/2012 DONOVAN NIELSEN, LAURY 786.2 Cough 04/08/2012 BENNIE YBARRA, MONICA Deras 786.2 Cough 04/08/2012 DONOVAN NIELSEN, LAURY 786.2 Cough 04/08/2012 DONOVAN NIELSEN, LAURY 786.2 Cough 04/08/2012 DONOVAN NIELSEN, LAURY 786.2 Cough 04/08/2012 DONOVAN NIELSEN, LAURY 786.2 Cough 04/08/2012 DONOVAN NIELSEN, LAURY 786.2 Cough 04/08/2012 DONOVAN NIELSEN, LAURY 786.2 Cough 04/08/2012 DONOVAN NIELSEN, LAURY 786.2 Cough 04/08/2012 DONOVAN NIELSEN, LAURY 786.2 Cough 04/08/2012 DONOVAN NIELSEN, LAURY 786.2 Cough 04/08/2012 DONOVAN NIELSEN, LAURY 786.2 Cough 04/08/2012 DONOVAN NIELSEN, LAURY 786.2 Cough 04/08/2012 DONOVAN NIELSEN, LAURY 786.2 Cough 04/08/2012 DONOVAN NIELSEN, LAURY 786.2 Cough 04/08/2012 DONOVAN NIELSEN, LAURY 786.2 Cough 04/08/2012 DONOVAN NIELSEN, LAURY 786.2 Cough 04/08/2012 DONOVAN NIELSEN, LAURY 786.2 Cough 04/08/2012 DONOVAN NIELSEN, LAURY 786.2 Cough 04/14/2012 LAURY MAN MD 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 04/14/2012 LARUY MAN MD 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 04/14/2012 LAURY MAN MD 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 04/14/2012 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 04/14/2012 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 04/14/2012 LAURY MAN MD 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 04/14/2012 LAURY MAN MD 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 04/14/2012 MONICA AVERY DDS 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 04/14/2012 LAURY MAN MD 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 04/14/2012 LAURY MAN MD 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 04/14/2012 LAURY MAN MD 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 04/14/2012 DONOVAN NIELSEN, LAURY 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 04/14/2012 DONOVAN NIELSEN, LAURY 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 04/14/2012 DONOVAN NIELSEN, LAURY 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 04/14/2012 DONOVAN NIELSEN, LAURY 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 04/14/2012 DONOVAN NIELSEN, LAURY 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 04/14/2012 DONOVAN NIELSEN, LAURY 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 04/14/2012 DONOVAN NIELSEN, LAURY 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 04/14/2012 DONOVAN NIELSEN, LAURY 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 04/14/2012 DONOVAN NIELSEN, LAURY 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 04/14/2012 DONOVAN NIELSEN, LAURY 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 04/14/2012 DONOVAN NIELSEN, LAURY 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 04/14/2012 DONOVAN NIELSEN, LAURY 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 04/14/2012 DONOVAN NIELSEN, LAURY 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 04/14/2012 DONOVAN NIELSEN, LAURY 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 04/28/2012 LAURY MAN MD 275.42 HYPERCALCEMIA 04/28/2012 LAURY MAN MD 275.42 HYPERCALCEMIA 04/28/2012 275.42 HYPERCALCEMIA 04/28/2012 275.42 HYPERCALCEMIA 04/28/2012 LAURY MAN MD 275.42 HYPERCALCEMIA 04/28/2012 LAURY MAN MD 275.42 HYPERCALCEMIA 04/28/2012 MONICA AVERY DDS 275.42 HYPERCALCEMIA 04/28/2012 LAURY MAN MD 275.42 HYPERCALCEMIA 04/28/2012 DONOVAN NIELSEN, LAURY 275.42 HYPERCALCEMIA 04/28/2012 DONOVAN NIELSEN, LAURY 275.42 HYPERCALCEMIA 04/28/2012 LAURY MAN MD 275.42 HYPERCALCEMIA 04/28/2012 LAURY MAN MD 275.42 HYPERCALCEMIA 04/28/2012 DONOVAN NIELSEN, LAURY 275.42 HYPERCALCEMIA 04/28/2012 DONOVAN NIELSEN, LAURY 275.42 HYPERCALCEMIA 04/28/2012 DONOVAN NIELSEN, LAURY 275.42 HYPERCALCEMIA 04/28/2012 DONOVAN NIELSEN, LAURY 275.42 HYPERCALCEMIA 04/28/2012 DONOVAN NIELSEN, LAURY 275.42 HYPERCALCEMIA 04/28/2012 DONOVAN NIELSEN, LAURY 275.42 HYPERCALCEMIA 04/28/2012 DONOVAN NIELSEN, LAURY 275.42 HYPERCALCEMIA 04/28/2012 DONOVAN NIELSEN, LAURY 275.42 HYPERCALCEMIA 04/28/2012 DONOVAN NIELSEN, LAURY 275.42 HYPERCALCEMIA 04/28/2012 DONOVAN NIELSEN, LAURY 275.42 HYPERCALCEMIA 04/28/2012 DONOVAN NIELSEN, LAURY 275.42 HYPERCALCEMIA 04/28/2012 DONOVAN NIELSEN, LAURY 275.42 HYPERCALCEMIA 10/15/2012 LAURY MAN MD 459.81 VENOUS (PERIPHERAL) INSUFFICIENCY UNSPECIFIED 10/15/2012 LAURY MAN MD 461.8 OTHER ACUTE SINUSITIS 10/15/2012 LAURY MAN MD 459.81 VENOUS (PERIPHERAL) INSUFFICIENCY UNSPECIFIED 10/15/2012 LAURY MAN MD 461.8 OTHER ACUTE SINUSITIS 10/15/2012 BENNIE ROCHAS, MONICA Deras 459.81 VENOUS (PERIPHERAL) INSUFFICIENCY UNSPECIFIED 10/15/2012 BENNIE ROCHAS, MONICA Deras 461.8 OTHER ACUTE SINUSITIS 10/15/2012 LAURY MAN MD 459.81 VENOUS (PERIPHERAL) INSUFFICIENCY UNSPECIFIED 10/15/2012 LAURY MAN MD 461.8 OTHER ACUTE SINUSITIS 10/15/2012 LAURY MAN MD 459.81 VENOUS (PERIPHERAL) INSUFFICIENCY UNSPECIFIED 10/15/2012 LAURY MAN MD 461.8 OTHER ACUTE SINUSITIS 10/15/2012 LAURY MAN MD 459.81 VENOUS (PERIPHERAL) INSUFFICIENCY UNSPECIFIED 10/15/2012 LAURY MAN MD 461.8 OTHER ACUTE SINUSITIS 10/15/2012 LAURY MAN MD 459.81 VENOUS (PERIPHERAL) INSUFFICIENCY UNSPECIFIED 10/15/2012 LAURY MAN MD 461.8 OTHER ACUTE SINUSITIS 10/15/2012 LAURY MAN MD 459.81 VENOUS (PERIPHERAL) INSUFFICIENCY UNSPECIFIED 10/15/2012 LAURY MAN MD 461.8 OTHER ACUTE SINUSITIS 10/15/2012 DONOVAN NIELSEN, LAURY 459.81 VENOUS (PERIPHERAL) INSUFFICIENCY UNSPECIFIED 10/15/2012 DONOVAN NIELSEN, LAURY 461.8 OTHER ACUTE SINUSITIS 10/15/2012 DONOVAN NIELSEN, LAURY 459.81 VENOUS (PERIPHERAL) INSUFFICIENCY UNSPECIFIED 10/15/2012 DONOVAN NIELSEN, LAURY 461.8 OTHER ACUTE SINUSITIS 10/15/2012 DONOVAN NIELSEN, LAURY 459.81 VENOUS (PERIPHERAL) INSUFFICIENCY UNSPECIFIED 10/15/2012 DONOVAN NIELSEN, LAURY 461.8 OTHER ACUTE SINUSITIS 10/15/2012 DONOVAN NIELSEN, LAURY 459.81 VENOUS (PERIPHERAL) INSUFFICIENCY UNSPECIFIED 10/15/2012 DONOVAN NIELSEN, LAURY 461.8 OTHER ACUTE SINUSITIS 10/15/2012 DONOVAN NIELSEN, LAURY 459.81 VENOUS (PERIPHERAL) INSUFFICIENCY UNSPECIFIED 10/15/2012 DONOVAN NIELSEN, LAURY 461.8 OTHER ACUTE SINUSITIS 10/15/2012 DONOVAN NIELSEN, LAURY 459.81 VENOUS (PERIPHERAL) INSUFFICIENCY UNSPECIFIED 10/15/2012 DONOVAN NIELSEN, LAURY 461.8 OTHER ACUTE SINUSITIS 10/15/2012 DONOVAN NIELSEN, LAURY 459.81 VENOUS (PERIPHERAL) INSUFFICIENCY UNSPECIFIED 10/15/2012 DONOVAN NIELSEN, LAURY 461.8 OTHER ACUTE SINUSITIS 10/15/2012 DONOVAN NIELSEN, LAURY 459.81 VENOUS (PERIPHERAL) INSUFFICIENCY UNSPECIFIED 10/15/2012 DONOVAN NIELSEN, LAURY 461.8 OTHER ACUTE SINUSITIS 10/15/2012 DONOVAN NIELSEN, LAURY 459.81 VENOUS (PERIPHERAL) INSUFFICIENCY UNSPECIFIED 10/15/2012 DONOVAN NIELSEN, LAURY 461.8 OTHER ACUTE SINUSITIS 10/15/2012 DONOVAN NIELSEN, LAURY 459.81 VENOUS (PERIPHERAL) INSUFFICIENCY UNSPECIFIED 10/15/2012 DONOVAN NIELSEN, LAURY 461.8 OTHER ACUTE SINUSITIS 10/15/2012 DONOVAN NIELSEN, LAURY 459.81 VENOUS (PERIPHERAL) INSUFFICIENCY UNSPECIFIED 10/15/2012 DONOVAN NIELSEN, LAURY 461.8 OTHER ACUTE SINUSITIS 10/15/2012 DONOVAN NIELSEN, LAURY 459.81 VENOUS (PERIPHERAL) INSUFFICIENCY UNSPECIFIED 10/15/2012 DONOVAN NIELSEN, LAURY 461.8 OTHER ACUTE SINUSITIS 11/30/2012 DONOVAN NIELSEN, LAURY 346.90 MIGRAINE UNSPECIFIED WITHOUT MENTION OF INTRACTABLE MIGRAINE WITHOUT MENTION OF STATUS MIGRAINOSUS 11/30/2012 WHITE DDS, MONICA D 346.90 MIGRAINE UNSPECIFIED WITHOUT MENTION OF INTRACTABLE MIGRAINE WITHOUT MENTION OF STATUS MIGRAINOSUS 11/30/2012 DONOVAN NIELSEN, LAURY 346.90 MIGRAINE UNSPECIFIED WITHOUT MENTION OF INTRACTABLE MIGRAINE WITHOUT MENTION OF STATUS MIGRAINOSUS 11/30/2012 DONOVAN NIELSEN, LAURY 346.90 MIGRAINE UNSPECIFIED WITHOUT MENTION OF INTRACTABLE MIGRAINE WITHOUT MENTION OF STATUS MIGRAINOSUS 11/30/2012 DONOVAN NIELSEN, LAURY 346.90 MIGRAINE UNSPECIFIED WITHOUT MENTION OF INTRACTABLE MIGRAINE WITHOUT MENTION OF STATUS MIGRAINOSUS 11/30/2012 DONOVAN NIELSEN, LAURY 346.90 MIGRAINE UNSPECIFIED WITHOUT MENTION OF INTRACTABLE MIGRAINE WITHOUT MENTION OF STATUS MIGRAINOSUS 11/30/2012 DONOVAN NIELSEN, LAURY 346.90 MIGRAINE UNSPECIFIED WITHOUT MENTION OF INTRACTABLE MIGRAINE WITHOUT MENTION OF STATUS MIGRAINOSUS 11/30/2012 DONOVAN NIELSEN, LAURY 346.90 MIGRAINE UNSPECIFIED WITHOUT MENTION OF INTRACTABLE MIGRAINE WITHOUT MENTION OF STATUS MIGRAINOSUS 11/30/2012 DONOVAN NIELSEN, LAURY 346.90 MIGRAINE UNSPECIFIED WITHOUT MENTION OF INTRACTABLE MIGRAINE WITHOUT MENTION OF STATUS MIGRAINOSUS 11/30/2012 DONOVAN NIELSEN, LAURY 346.90 MIGRAINE UNSPECIFIED WITHOUT MENTION OF INTRACTABLE MIGRAINE WITHOUT MENTION OF STATUS MIGRAINOSUS 11/30/2012 DONOVAN NIELSEN, LAURY 346.90 MIGRAINE UNSPECIFIED WITHOUT MENTION OF INTRACTABLE MIGRAINE WITHOUT MENTION OF STATUS MIGRAINOSUS 11/30/2012 DONOVAN NIELSEN, LAURY 346.90 MIGRAINE UNSPECIFIED WITHOUT MENTION OF INTRACTABLE MIGRAINE WITHOUT MENTION OF STATUS MIGRAINOSUS 11/30/2012 DONOVAN NIELSEN, LAURY 346.90 MIGRAINE UNSPECIFIED WITHOUT MENTION OF INTRACTABLE MIGRAINE WITHOUT MENTION OF STATUS MIGRAINOSUS 11/30/2012 DONOVAN NIELSEN, LAURY 346.90 MIGRAINE UNSPECIFIED WITHOUT MENTION OF INTRACTABLE MIGRAINE WITHOUT MENTION OF STATUS MIGRAINOSUS 11/30/2012 DONOVAN NIELSEN, LAURY 346.90 MIGRAINE UNSPECIFIED WITHOUT MENTION OF INTRACTABLE MIGRAINE WITHOUT MENTION OF STATUS MIGRAINOSUS 11/30/2012 LAURY MAN MD 346.90 MIGRAINE UNSPECIFIED WITHOUT MENTION OF INTRACTABLE MIGRAINE WITHOUT MENTION OF STATUS MIGRAINOSUS 11/30/2012 DONOVAN NIELSEN, LAURY 346.90 MIGRAINE UNSPECIFIED WITHOUT MENTION OF INTRACTABLE MIGRAINE WITHOUT MENTION OF STATUS MIGRAINOSUS 11/30/2012 DONOVAN NIELSEN, LAURY 346.90 MIGRAINE UNSPECIFIED WITHOUT MENTION OF INTRACTABLE MIGRAINE WITHOUT MENTION OF STATUS MIGRAINOSUS 11/30/2012 DONOVAN NIELSEN, LAURY 346.90 MIGRAINE UNSPECIFIED WITHOUT MENTION OF INTRACTABLE MIGRAINE WITHOUT MENTION OF STATUS MIGRAINOSUS 01/25/2013 DONOVAN NIELSEN, LAURY 300.00 ANXIETY STATE UNSPECIFIED 01/25/2013 DONOVAN NIELSEN, LAURY 724.2 LUMBAGO 01/25/2013 DONOVAN NIELSEN, LAURY 300.00 ANXIETY STATE UNSPECIFIED 01/25/2013 DONOVAN NIELSEN, LAURY 724.2 LUMBAGO 01/25/2013 DONOVAN NIELSEN, LAURY 300.00 ANXIETY STATE UNSPECIFIED 01/25/2013 DONOVAN NIELSEN, LAURY 724.2 LUMBAGO 01/25/2013 DONOVAN NIESLEN, LAURY 300.00 ANXIETY STATE UNSPECIFIED 01/25/2013 DONOVAN NIELSEN, LAURY 724.2 LUMBAGO 01/25/2013 DONOVAN NIELSEN, LAURY 300.00 ANXIETY STATE UNSPECIFIED 01/25/2013 DONOVAN NIELSEN, LAURY Leal.2 LUMBAGO 01/25/2013 DONOVAN NIELSEN, LAURY 300.00 ANXIETY STATE UNSPECIFIED 01/25/2013 DONOVAN NIELSEN, LAURY 724.2 LUMBAGO 01/25/2013 DONOVAN NIELSEN, LAURY 300.00 ANXIETY STATE UNSPECIFIED 01/25/2013 DONOVAN NIELSEN, LAURY 724.2 LUMBAGO 01/25/2013 DONOVAN NIELSEN, LAURY 300.00 ANXIETY STATE UNSPECIFIED 01/25/2013 DONOVAN NIELSEN, LAURY 724.2 LUMBAGO 01/25/2013 DONOVAN NIELSEN, LAURY 300.00 ANXIETY STATE UNSPECIFIED 01/25/2013 DONOVAN NIELSEN, LAURY 724.2 LUMBAGO 01/25/2013 DONOVAN NIELSEN, LAURY 300.00 ANXIETY STATE UNSPECIFIED 01/25/2013 DONOVAN NIELSEN, LAURY 724.2 LUMBAGO 01/25/2013 DONOVAN NIELSEN, LAURY 300.00 ANXIETY STATE UNSPECIFIED 01/25/2013 DONOVAN NIELSEN, LAURY Leal.2 LUMBAGO 01/25/2013 DONOVAN NIELSEN, LAURY 300.00 ANXIETY STATE UNSPECIFIED 01/25/2013 DONOVAN NIELSEN, LAURY Marrero4.2 LUMBAGO 01/25/2013 DONOVAN NIELSEN, LAURY 300.00 ANXIETY STATE UNSPECIFIED 01/25/2013 DONOVAN NIELSEN, LAURY 724.2 LUMBAGO 01/25/2013 DONOVAN NIELSEN, LAURY 300.00 ANXIETY STATE UNSPECIFIED 01/25/2013 DONOVAN NIELSEN, LAURY 724.2 LUMBAGO 01/25/2013 DONOVAN NIELSEN, LAURY 300.00 ANXIETY STATE UNSPECIFIED 01/25/2013 DONOVAN NIELSEN, LAURY 724.2 LUMBAGO 01/25/2013 DONOVAN NIELSEN, LAURY 300.00 ANXIETY STATE UNSPECIFIED 01/25/2013 DONOVAN NIELSEN, LAURY 724.2 LUMBAGO 01/25/2013 DONOVAN NIELSEN, LAURY 300.00 ANXIETY STATE UNSPECIFIED 01/25/2013 DONOVAN NIELSEN, LAURY 724.2 LUMBAGO 06/25/2013 DONOVAN NIELSEN, LAURY 784.0 HEADACHE 06/25/2013 DONOVAN NIELSEN, LAURY 790.29 OTHER ABNORMAL GLUCOSE 06/25/2013 LAURY MAN MD 784.0 HEADACHE 06/25/2013 DONOVAN NIELSEN, LAURY 790.29 OTHER ABNORMAL GLUCOSE 06/25/2013 LAURY MAN MD 784.0 HEADACHE 06/25/2013 DONOVAN NIELSEN, LAURY 790.29 OTHER ABNORMAL GLUCOSE 06/25/2013 DONOVAN NIELSEN, LAURY 784.0 HEADACHE 06/25/2013 DONOVAN NIELSEN, LAURY 790.29 OTHER ABNORMAL GLUCOSE 06/25/2013 LAURY MAN MD 784.0 HEADACHE 06/25/2013 DONOVAN NIELSEN, LAURY 790.29 OTHER ABNORMAL GLUCOSE 06/25/2013 DONOVAN NIELSEN, LAURY 784.0 HEADACHE 06/25/2013 DONOVAN NIELSEN, LAURY 790.29 OTHER ABNORMAL GLUCOSE 06/25/2013 LAURY MAN MD 784.0 HEADACHE 06/25/2013 DONOVAN NIELSEN, LAURY 790.29 OTHER ABNORMAL GLUCOSE 06/25/2013 DONOVAN NIELSEN, LAURY 784.0 HEADACHE 06/25/2013 DONOVAN NIELSEN, LAURY 790.29 OTHER ABNORMAL GLUCOSE 06/25/2013 LAURY MAN MD 784.0 HEADACHE 06/25/2013 DONOVAN NIELSEN, LAURY 790.29 OTHER ABNORMAL GLUCOSE 06/25/2013 LAURY MAN MD 784.0 HEADACHE 06/25/2013 DONOVAN NIELSEN, LAURY 790.29 OTHER ABNORMAL GLUCOSE 06/25/2013 LAURY MAN MD 784.0 HEADACHE 06/25/2013 DONOVAN NIELSEN, LAURY 790.29 OTHER ABNORMAL GLUCOSE 06/25/2013 DONOVAN NIELSEN, LAURY 784.0 HEADACHE 06/25/2013 DONOVAN NIELSEN, LAURY 790.29 OTHER ABNORMAL GLUCOSE 08/05/2013 DONOVAN NIELSEN, LAURY 466.0 ACUTE BRONCHITIS 08/05/2013 DONOVAN NIELSEN, LAURY 466.0 ACUTE BRONCHITIS 08/05/2013 DONOVAN NIELSEN, LAURY 466.0 ACUTE BRONCHITIS 08/05/2013 DONOVAN NIELSEN, LAURY 466.0 ACUTE BRONCHITIS 08/05/2013 DONOVAN NIELSEN, LAURY 466.0 ACUTE BRONCHITIS 08/05/2013 DONOVAN NIELSEN, LAURY 466.0 ACUTE BRONCHITIS 08/05/2013 DONOVAN NIELSEN, LAURY 466.0 ACUTE BRONCHITIS 08/05/2013 DONOVAN NIELSEN, LAURY 466.0 ACUTE BRONCHITIS 08/05/2013 DONOVAN NIELSEN, LAURY 466.0 ACUTE BRONCHITIS 08/05/2013 DONOVAN NIELSEN, LAURY 466.0 ACUTE BRONCHITIS 09/10/2013 LAURY MAN MD 783.21 LOSS OF WEIGHT 09/10/2013 LAURY MAN MD 783.21 LOSS OF WEIGHT 09/10/2013 LAURY MAN MD 783.21 LOSS OF WEIGHT 09/10/2013 LAURY MAN MD 783.21 LOSS OF WEIGHT 09/10/2013 LAURY MAN MD 783.21 LOSS OF WEIGHT 09/10/2013 LAURY MAN MD 783.21 LOSS OF WEIGHT 09/10/2013 LAURY MAN MD 783.21 LOSS OF WEIGHT 09/10/2013 LAURY MAN MD 783.21 LOSS OF WEIGHT 09/10/2013 LAURY MAN MD 783.21 LOSS OF WEIGHT 10/02/2013 OLIVER CARDONA DO Ot 304.90 DRUG DEPEND NOS-UNSPEC 10/02/2013 OLIVER CARDONA DO Ot 724.2 LUMBAGO 10/19/2013 LAURY MAN MD 311 DEPRESSIVE DISORDER NOT ELSEWHERE CLASSIFIED 10/19/2013 LAURY MAN MD 311 DEPRESSIVE DISORDER NOT ELSEWHERE CLASSIFIED 10/19/2013 LAURY MAN MD 311 DEPRESSIVE DISORDER NOT ELSEWHERE CLASSIFIED 10/19/2013 LAURY MAN MD 311 DEPRESSIVE DISORDER NOT ELSEWHERE CLASSIFIED 10/19/2013 LAURY MAN MD 311 DEPRESSIVE DISORDER NOT ELSEWHERE CLASSIFIED 10/19/2013 LAURY MAN MD 311 DEPRESSIVE DISORDER NOT ELSEWHERE CLASSIFIED 10/19/2013 LAURY MAN MD 311 DEPRESSIVE DISORDER NOT ELSEWHERE CLASSIFIED 11/01/2013 LAURY MAN MD 466.0 ACUTE BRONCHITIS 11/01/2013 LAURY MAN MD 496 CHRONIC AIRWAY OBSTRUCTION NOT ELSEWHERE CLASSIFIED 11/01/2013 LAURY MAN MD 466.0 ACUTE BRONCHITIS 11/01/2013 LAURY MAN MD 496 CHRONIC AIRWAY OBSTRUCTION NOT ELSEWHERE CLASSIFIED 11/01/2013 LAURY MAN MD 466.0 ACUTE BRONCHITIS 11/01/2013 LAURY MAN MD 496 CHRONIC AIRWAY OBSTRUCTION NOT ELSEWHERE CLASSIFIED 11/01/2013 LAURY MAN MD 466.0 ACUTE BRONCHITIS 11/01/2013 LAURY MAN MD 496 CHRONIC AIRWAY OBSTRUCTION NOT ELSEWHERE CLASSIFIED 11/01/2013 LAURY MAN MD 466.0 ACUTE BRONCHITIS 11/01/2013 LAURY MAN MD 496 CHRONIC AIRWAY OBSTRUCTION NOT ELSEWHERE CLASSIFIED 11/01/2013 LAURY MAN MD 466.0 ACUTE BRONCHITIS 11/01/2013 LAURY MAN MD 496 CHRONIC AIRWAY OBSTRUCTION NOT ELSEWHERE CLASSIFIED 05/30/2014 LAURY MAN MD 719.45 PAIN IN JOINT INVOLVING PELVIC REGION AND THIGH 07/27/2014 CHAMP MONTES 722.52 LUMB/LUMBOSAC DISC DEGEN 07/27/2014 CHAMP MONTES V68.1 ISSUE OF REPEAT PRESCRIPTIONS 08/22/2014 CHAMP MONTES 719.45 PAIN IN JOINT INVOLVING PELVIC REGION AND THIGH 08/22/2014 CHAMP MONTES 722.52 LUMB/LUMBOSAC DISC DEGEN 08/22/2014 CHAMP MONTES V68.1 ISSUE OF REPEAT PRESCRIPTIONS 08/22/2014 CHAMP MONTES 715.95 OSTEOARTHROS NOS-PELVIS 08/22/2014 CHAMP MONTES 789.09 ABDOMINAL PAIN, OTHER SPECIFIED SITE 08/22/2014 YAJAIRA TILLEY 297.1 DELUSIONAL DISORDER 08/22/2014 YAJAIRA TILLEY 338.4 CHRONIC PAIN SYSNDROME 08/22/2014 YAJAIRA TILLEY 719.45 PAIN IN JOINT INVOLVING PELVIC REGION AND THIGH 09/20/2014 CHAMP MONTES 715.95 OSTEOARTHROS NOS-PELVIS 09/20/2014 CHAMP MONTES 722.52 LUMB/LUMBOSAC DISC DEGEN 09/20/2014 CAHMP MONTES V68.1 ISSUE OF REPEAT PRESCRIPTIONS 10/21/2014 CHAMP MONTES 715.95 OSTEOARTHROS NOS-PELVIS 10/21/2014 CHAMP MONTES 722.52 LUMB/LUMBOSAC DISC DEGEN 10/21/2014 CHAMP MONTES V68.1 ISSUE OF REPEAT PRESCRIPTIONS 11/28/2014 CHAMP MONTES M16.12 Unilateral primary osteoarthritis, left hip 11/28/2014 CHAMP MONTES M51.36 Other intervertebral disc degeneration, lumbar region 11/28/2014 CHAMP MONTES Z76.0 Encounter for issue of repeat prescription 12/30/2014 CHAMP MONTES M16.12 Unilateral primary osteoarthritis, left hip 12/30/2014 CHAMP MONTES M51.36 Other intervertebral disc degeneration, lumbar region 02/01/2015 CHAMP MONTES M16.12 Unilateral primary osteoarthritis, left hip 02/01/2015 CHAMP MONTES M51.36 Other intervertebral disc degeneration, lumbar region 02/01/2015 CHAMP MONTES Z76.0 Encounter for issue of repeat prescription 03/02/2015 CHAMP MONTES Z12.31 Encounter for screening mammogram for malignant neoplasm of breast 03/02/2015 CHAMP MONTES G89.29 Other chronic pain 03/02/2015 CHAMP MONTES M51.36 Other intervertebral disc degeneration, lumbar region 03/02/2015 HCAMP MONTES Z76.0 Encounter for issue of repeat prescription 03/30/2015 CHAMP MONTES K21.9 Gastro- esophageal reflux disease without esophagitis 03/30/2015 CHAMP MONTES M16.12 Unilateral primary osteoarthritis, left hip 03/30/2015 CHAMP MONTES M51.36 Other intervertebral disc degeneration, lumbar region 03/30/2015 CHAMP MONTES Z76.0 Encounter for issue of repeat prescription 05/01/2015 CHAMP MONTES M16.12 Unilateral primary osteoarthritis, left hip 05/01/2015 CHAMP MONTES M51.36 Other intervertebral disc degeneration, lumbar region 05/01/2015 CHAMP MONTES Z76.0 Encounter for issue of repeat prescription 05/30/2015 CHAMP MONTES R30.0 Dysuria 05/30/2015 CHAMP MONTES F17.210 Nicotine dependence, cigarettes, uncomplicated 05/30/2015 CHAMP MONTES M16.12 Unilateral primary osteoarthritis, left hip 05/30/2015 CHAMP MONTES M51.36 Other intervertebral disc degeneration, lumbar region 05/30/2015 CHAMP MONTES R10.9 Unspecified abdominal pain 06/24/2015 VAISHNAVI BALDERAS S62.001A Unspecified fracture of navicular [scaphoid] bone of right wrist, initial encounter for closed fracture 06/24/2015 VAISHNAVI BALDERAS M25.531 Pain in right wrist 06/28/2015 YAJAIRA TILLEY S62.001A Unspecified fracture of navicular [scaphoid] bone of right wrist, initial encounter for closed fracture 07/26/2015 CHAMP MONTES H91.90 Unspecified hearing loss, unspecified ear 07/26/2015 CHAMP MONTES J44.9 Chronic obstructive pulmonary disease, unspecified 07/26/2015 CHAMP MONTES M16.12 Unilateral primary osteoarthritis, left hip 07/26/2015 YAJAIRA TILLEY F S62.001D Unspecified fracture of navicular [scaphoid] bone of right wrist, subsequent encounter for fracture with routine healing 07/26/2015 YAJAIRA TILLEY F S62.001D Unspecified fracture of navicular [scaphoid] bone of right wrist, subsequent encounter for fracture with routine healing 08/25/2015 YAJAIRA TILLEY J44.9 Chronic obstructive pulmonary disease, unspecified 08/25/2015 YAJAIRA TILLEY M51.36 Other intervertebral disc degeneration, lumbar region 08/25/2015 FEYAJAIRA COLLINS F S62.001D Unspecified fracture of navicular [scaphoid] bone of right wrist, subsequent encounter for fracture with routine healing 08/25/2015 YAJAIRA TILLEY F S62.001D Unspecified fracture of navicular [scaphoid] bone of right wrist, subsequent encounter for fracture with routine healing 08/25/2015 CHAMP MONTES J20.9 Acute bronchitis, unspecified 08/25/2015 CHAMP MONTES J44.9 Chronic obstructive pulmonary disease, unspecified 08/25/2015 CHAMP MONTES M16.12 Unilateral primary osteoarthritis, left hip 08/25/2015 CHAMP MONTES M51.36 Other intervertebral disc degeneration, lumbar region 09/22/2015 CHAMP MONTES M16.12 Unilateral primary osteoarthritis, left hip 09/22/2015 CHAMP MONTES M51.36 Other intervertebral disc degeneration, lumbar region 09/22/2015 CHAMP MONTES R30.0 Dysuria 09/22/2015 CHAMP MONTES S83.92XA Sprain of unspecified site of left knee, initial encounter 09/22/2015 CHAMP MONTES Z51.81 Encounter for therapeutic drug level monitoring 09/22/2015 CHAMP MONTES Z79.891 FPC (current) use of opiate analgesic 10/24/2015 CHAMP MONTES I10 Essential (primary) hypertension 10/24/2015 CHAMP MONTES M16.12 Unilateral primary osteoarthritis, left hip 10/24/2015 CHAMP MONTES M51.36 Other intervertebral disc degeneration, lumbar region 11/15/2015 CHAMP MONTES M16.12 Unilateral primary osteoarthritis, left hip 11/15/2015 CHAMP MONTES Z76.0 Encounter for issue of repeat prescription 11/15/2015 CHAMP MONTES Z96.642 Presence of left artificial hip joint 12/13/2015 HCAMP MONTES M16.12 Unilateral primary osteoarthritis, left hip 12/13/2015 CHAMP MONTES Z96.642 Presence of left artificial hip joint 01/11/2016 CHAMP MONTES M25.562 Pain in left knee 01/11/2016 CHAMP MONTES M51.36 Other intervertebral disc degeneration, lumbar region 01/11/2016 CHAMP MONTES R30.0 Dysuria 02/14/2016 YAJAIRA TILLEY M62.89 Other specified disorders of muscle 02/14/2016 YAJAIRA TILLEY S80.02XA Contusion of left knee, initial encounter 02/14/2016 CHAMP MONTES M51.36 Other intervertebral disc degeneration, lumbar region 02/14/2016 CHAMP MONTES S83.512D Sprain of anterior cruciate ligament of left knee, subsequent encounter 03/01/2016 CHAMP MONTES I10 Essential (primary) hypertension 03/01/2016 CHAMP MONTES M25.562 Pain in left knee 03/15/2016 CHAMP MONTES I10 Essential (primary) hypertension 03/15/2016 CHAMP MONTES M25.562 Pain in left knee 03/15/2016 CHAMP MONTES M51.36 Other intervertebral disc degeneration, lumbar region 03/15/2016 CHAMP MONTES R00.1 Bradycardia, unspecified 04/10/2016 CHAMP MONTES R00.1 Bradycardia, unspecified 04/10/2016 CHAMP MONTES R00.2 Palpitations 04/10/2016 CHAMP MONTES M51.36 Other intervertebral disc degeneration, lumbar region 04/10/2016 CHAMP MONTES R00.1 Bradycardia, unspecified 04/10/2016 CHAMP MONTES Z76.0 Encounter for issue of repeat prescription 04/22/2016 CHAMP MONTES H69.91 Unspecified Eustachian tube disorder, right ear 05/09/2016 CHAMP MONTES R00.1 Bradycardia, unspecified 05/10/2016 CHAMP MNOTES J06.9 Acute upper respiratory infection, unspecified 05/10/2016 CHAMP MONTES J44.9 Chronic obstructive pulmonary disease, unspecified 05/10/2016 CHAMP MONTES M51.36 Other intervertebral disc degeneration, lumbar region 05/10/2016 CHAMP MONTES R00.2 Palpitations 06/10/2016 CHAMP MONTES H69.91 Unspecified Eustachian tube disorder, right ear 06/10/2016 CHAMP MONTES M17.12 Unilateral primary osteoarthritis, left knee 06/10/2016 CHAMP MONTES M51.36 Other intervertebral disc degeneration, lumbar region 07/12/2016 CHAMP MONTES J44.9 Chronic obstructive pulmonary disease, unspecified 07/12/2016 CHAMP MONTES M17.12 Unilateral primary osteoarthritis, left knee 07/12/2016 CHAMP MONTES R91.1 Solitary pulmonary nodule 07/12/2016 CHAMP MONTES J44.9 Chronic obstructive pulmonary disease, unspecified 07/12/2016 CHAMP MONTES R91.1 Solitary pulmonary nodule 08/12/2016 CHAMP MONTES G89.29 Other chronic pain 08/12/2016 CHAMP MONTES M51.36 Other intervertebral disc degeneration, lumbar region 08/12/2016 CHAMP MONTES R91.8 Other nonspecific abnormal finding of lung field 08/12/2016 CHAMP MONTES S83.002S Unspecified subluxation of left patella, sequela 09/06/2016 CHAMP MONTES M17.12 Unilateral primary osteoarthritis, left knee 09/06/2016 CHAMP MONTES Z76.0 Encounter for issue of repeat prescription 10/07/2016 CHAMP MONTES J44.9 Chronic obstructive pulmonary disease, unspecified 10/07/2016 CHAMP MONTES M17.12 Unilateral primary osteoarthritis, left knee 10/07/2016 CHAMP MONTES M51.36 Other intervertebral disc degeneration, lumbar region 10/07/2016 CHAMP MONTES Z99.81 Dependence on supplemental oxygen 11/06/2016 CHAMP MONTES G89.29 Other chronic pain 11/06/2016 CHAMP MONTES M17.12 Unilateral primary osteoarthritis, left knee 11/06/2016 CHAMP MONTES M51.36 Other intervertebral disc degeneration, lumbar region 11/06/2016 CHAMP MONTES Z76.0 Encounter for issue of repeat prescription 11/06/2016 CHAMP MONTES Z51.81 Encounter for therapeutic drug level monitoring 11/06/2016 CHAMP MONTES 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 12/10/2016 CHAMP MONTES E78.5 Hyperlipidemia, unspecified 12/10/2016 CHAMP MONTES G89.29 Other chronic pain 12/10/2016 CHAMP MONTES M17.12 Unilateral primary osteoarthritis, left knee 12/10/2016 CHAMP MONTES E78.00 Pure hypercholesterolemia, unspecified 12/24/2016 CHAMP MONTES M17.12 Unilateral primary osteoarthritis, left knee 12/24/2016 CHAMP MONTES M25.562 Pain in left knee 01/28/2017 CHAMP MONTES M17.12 Unilateral primary osteoarthritis, left knee 03/11/2017 CHAMP MONTES M17.12 Unilateral primary osteoarthritis, left knee 03/11/2017 CHAMP MONTES N60.02 Solitary cyst of left breast 04/22/2017 CHAMP MONTES Z96.652 Presence of left artificial knee joint 07/16/2017 CHAMP MONTES M17.12 Unilateral primary osteoarthritis, left knee 07/16/2017 CHAMP MONTES M25.562 Pain in left knee 07/16/2017 CHAMP MONTES Z96.652 Presence of left artificial knee joint 10/28/2017 CHAMP MONTES M50.30 Other cervical disc degeneration, unspecified cervical region 10/28/2017 CHAMP MONTES M51.36 Other intervertebral disc degeneration, lumbar region 11/07/2017 CHAMP MONTES M50.30 Other cervical disc degeneration, unspecified cervical region 11/07/2017 CHAMP MONTES M54.81 Occipital neuralgia 11/07/2017 CHAMP MONTES Z71.2 Person consulting for explanation of examination or test findings 11/19/2017 CHAMP MONTES M54.81 Occipital neuralgia 12/12/2017 CHAMP MONTES E78.5 Hyperlipidemia, unspecified 12/12/2017 CHAMP MONTES G89.29 Other chronic pain 12/12/2017 CHAMP MONTES M25.50 Pain in unspecified joint 12/12/2017 CHAMP MONTES S46.912A Strain of unspecified muscle, fascia and tendon at shoulder and upper arm level, left arm, initial encounter 12/12/2017 CHAMP MONTES E78.00 Pure hypercholesterolemia, unspecified 12/12/2017 CHAMP MONTES M25.50 Pain in unspecified joint 01/07/2018 CHAMP MONTES M75.42 Impingement syndrome of left shoulder 03/10/2018 CHAMP MONTES M54.81 Occipital neuralgia 04/28/2018 CHAMP MONTES M17.11 Unilateral primary osteoarthritis, right knee 04/28/2018 CHAMP MONTES M54.81 Occipital neuralgia 05/14/2018 CHAMP MONTES E78.5 Hyperlipidemia, unspecified 05/14/2018 CHAMP MONTES H69.91 Unspecified Eustachian tube disorder, right ear 05/14/2018 CHAMP MONTES R25.2 Cramp and spasm 05/14/2018 CHAMP MONTES R25.2 Cramp and spasm 06/03/2018 CHAMP MONTES G89.29 Other chronic pain 06/03/2018 CHAMP MONTES M17.11 Unilateral primary osteoarthritis, right knee 06/03/2018 CHAMP MONTES Z76.0 Encounter for issue of repeat prescription 07/03/2018 CHAMP MONTES L03.115 Cellulitis of right lower limb 07/03/2018 CHAMP MONTES M17.11 Unilateral primary osteoarthritis, right knee 07/03/2018 CHAMP MONTES Z76.0 Encounter for issue of repeat prescription Procedures Code Description [place] [id number] CAROTID DOPPLER 02/27/2012 [id number] ROUTINE VENIPUNCTURE 03/16/2012 70337 A1C (IN-HOUSE) 03/16/2012 13130 CMP 03/16/2012 69958 LIVER PANEL (LFT) 03/16/2012 69938 LIPID PANEL 03/16/2012 [id number] GFR CALC (RESULT ONLY) 03/16/2012 36359 INSULIN LEVEL 03/17/2012 49130 ROUTINE VENIPUNCTURE 04/28/2012 45883 CMP 04/28/2012 [id number] GFR CALC (RESULT ONLY) 04/28/2012 73266 H PYLORI (IN-HOUSE) 05/14/2012 63060 MRI SPINE (LUMBAR) W/O CONTRAST 03/01/2013 90421 ROUTINE VENIPUNCTURE 06/11/2013 33743 SED/ESR RATE (IN HOUSE) 06/11/2013 95020 CMP 06/11/2013 [id number] GFR CALC (RESULT ONLY) 06/11/2013 29769 TSH 06/11/2013 70684 ROUTINE VENIPUNCTURE 06/18/2013 [id number] CALCIUM (RESULT ONLY) 06/19/2013 [id number] PTH INTACT SONI (RESULT ONLY) 06/19/2013 15901 PTH (intact) (ORDER ONLY) 06/25/2013 98148 A1C (IN-HOUSE) 06/25/2013 37056 ROUTINE VENIPUNCTURE 09/10/2013 87807 UA LONG DIP 09/10/2013 [id number] GFR CALC (RESULT ONLY) 09/10/2013 30275 CMP 09/10/2013 90749 ROUTINE VENIPUNCTURE 12/27/2013 88181 MAGNESIUM 12/27/2013 20074 XRAY HIP LEFT UNILATERAL MIN 2 VIEWS 05/30/2014 Results Test Result Range Complete urinalysis with reflex to culture - 07/22/18 16:34 Urine color determination DK YELLOW NRG Urine clarity determination CLEAR NRG Urine pH measurement by test strip 6.5 5-9 Specific gravity of urine by test strip 1.015 1.016-1.022 Urine protein assay by test strip, semi-quantitative NEGATIVE NEGATIVE Urine glucose detection by automated test strip NEGATIVE NEGATIVE Erythrocytes detection in urine sediment by light microscopy TRACE NEGATIVE Urine ketones detection by automated test strip NEGATIVE NEGATIVE Urine nitrite detection by test strip NEGATIVE NEGATIVE Urine total bilirubin detection by test strip 1+ NEGATIVE Urine urobilinogen measurement by automated test strip (mass/volume) 4.0 mg/dL NORMAL Urine leukocyte esterase detection by dipstick 2+ NEGATIVE Automated urine sediment erythrocyte count by microscopy (number/high power field) NONE NRG Automated urine sediment leukocyte count by microscopy (number/high power field) [HPF] NRG Bacteria detection in urine sediment by light microscopy NEGATIVE NRG Squamous epithelial cells detection in urine sediment by light microscopy 2-5 NRG Crystals detection in urine sediment by light microscopy NONE NRG Casts detection in urine sediment by light microscopy PRESENT NRG Mucus detection in urine sediment by light microscopy NONE NRG Complete urinalysis with reflex to culture YES NRG Hyaline casts detection in urine sediment by light microscopy 2-5 NRG Complete blood count (CBC) with automated white blood cell (WBC) differential - 07/22/18 17:05 Blood leukocytes automated count (number/volume) 9.0 10*3/uL 4.3-11.0 Blood erythrocytes automated count (number/volume) 3.81 10*6/uL 4.35-5.85 Venous blood hemoglobin measurement (mass/volume) 11.0 g/dL 11.5-16.0 Blood hematocrit (volume fraction) 35 % 35-52 Automated erythrocyte mean corpuscular volume 91 [foz_us] 80-99 Automated erythrocyte mean corpuscular hemoglobin (mass per erythrocyte) 29 pg 25-34 Automated erythrocyte mean corpuscular hemoglobin concentration measurement (mass/volume) 32 g/dL 32-36 Automated erythrocyte distribution width ratio 13.2 % 10.0- 14.5 Automated blood platelet count (count/volume) 223 10*3/uL 130-400 Automated blood platelet mean volume measurement 9.7 [foz_us] 7.4-10.4 Automated blood neutrophils/100 leukocytes 72 % 42-75 Automated blood lymphocytes/100 leukocytes 16 % 12-44 Blood monocytes/100 leukocytes 8 % 0-12 Automated blood eosinophils/100 leukocytes 3 % 0-10 Automated blood basophils/100 leukocytes 1 % 0-10 Blood neutrophils automated count (number/volume) 6.5 10*3 1.8-7.8 Blood lymphocytes automated count (number/volume) 1.5 10*3 1.0-4.0 Blood monocytes automated count (number/volume) 0.7 10*3 0.0- 1.0 Automated eosinophil count 0.3 10*3/uL 0.0-0.3 Automated blood basophil count (count/volume) 0.1 10*3/uL 0.0-0.1 Comprehensive metabolic panel - 07/22/18 17:05 Serum or plasma sodium measurement (moles/volume) 140 mmol/L 135-145 Serum or plasma potassium measurement (moles/volume) 4.2 mmol/L 3.6-5.0 Serum or plasma chloride measurement (moles/volume) 103 mmol/L 98-107 Carbon dioxide 24 mmol/L 21-32 Serum or plasma anion gap determination (moles/volume) 13 mmol/L 5-14 Serum or plasma urea nitrogen measurement (mass/volume) 16 mg/dL 7-18 Serum or plasma creatinine measurement (mass/volume) 0.98 mg/dL 0.60-1.30 Serum or plasma urea nitrogen/creatinine mass ratio 16 NRG Serum or plasma creatinine measurement with calculation of estimated glomerular filtration rate 56 NRG Serum or plasma glucose measurement (mass/volume) 115 mg/dL 70-105 Serum or plasma calcium measurement (mass/volume) 8.8 mg/dL 8.5-10.1 Serum or plasma total bilirubin measurement (mass/volume) 0.8 mg/dL 0.1-1.0 Serum or plasma alkaline phosphatase measurement (enzymatic activity/volume) 173 U/L 40-136 Serum or plasma aspartate aminotransferase measurement (enzymatic activity/volume) 31 U/L 5-34 Serum or plasma alanine aminotransferase measurement (enzymatic activity/volume) 29 U/L 0-55 Serum or plasma protein measurement (mass/volume) 6.5 g/dL 6.4-8.2 Serum or plasma albumin measurement (mass/volume) 3.5 g/dL 3.2-4.5 CALCIUM CORRECTED 9.2 mg/dL 8.5-10.1 Encounters ACCT No. Visit Date/Time Discharge Status Pt. Type Provider Facility Loc./Unit Complaint [id number] 07/03/2018 14:15:00 07/03/2018 18[facility]15:00 [id number]/03/2018 14:15:00 06/03/2018 18:15:00 [facility] [id number] 05/14/2018 12:16:00 05/14/2018 23:59:59 CLS Outpatient SIMON [facility] [id number] 05/14/2018 11:45:00 05/14/2018 15:45:00 [facility] [id number] 04/28/2018 13:30:00 04/28/2018 17:30:00 [id number] 03/10/2018 10:00:00 03/10/2018 14:00:00 [facility] [id number] 01/07/2018 13:45:00 01/07/2018 17:45:00 [facility] [id number] 12/12/2017 11:32:00 12/12/2017 15:32:00 [id number] 12/12/2017 11:15:00 12/12/2017 15:15:00 [facility] [id number] 11/19/2017 14:00:00 11/19/2017 18:00:00 [facility] [id number] 11/07/2017 10:30:00 11/07/2017 14:30:00 [facility] [id number] 10/28/2017 11:45:00 10/28/2017 15:45:00 DIS Outpatient S[facility]YER, [facility] [id number] 07/16/2017 10:00:00 07/16/2017 14:00:00 DIS Outpatient SLOYER, [facility] CL [id number] 04/22/2017 11:15:00 04/22/2017 15:15:00 DIS Outpatient SLOYER, [facility] CL [id number] 04/09/2017 13:00:00 04/09/2017 23:59:59 CLS Outpatient SLOYER [facility] [id number] 03/11/2017 11:30:00 03/11/2017 15:30:00 DIS Outpatient SLOYER, [facility] CL [id number] 01/28/2017 10:30:00 01/28/2017 14:30:00 DIS Outpatient SLOYER, [facility] CL [id number] 12/24/2016 14:00:00 12/24/2016 18:00:00 DIS Outpatient SLOYER, [facility] CL [id number] 12/10/2016 12:01:00 12/10/2016 23:59:59 CLS Outpatient SLOYER, [facility] OT [id number] 12/10/2016 11:00:00 12/10/2016 15:00:00 DIS Outpatient SLOYER, [facility] CL [id number] 11/06/2016 10:09:00 11/06/2016 14:09:00 DIS Outpatient SLOYER, [facility] OT [id number] 11/06/2016 09:45:00 11/06/2016 13:45:00 DIS Outpatient SLOYER, [facility] CL [id number] 10/07/2016 11:15:00 10/07/2016 15:15:00 DIS RB SLOYER, [facility] CL [id number] 09/06/2016 11:30:00 09/06/2016 [facility]:30:[id number] 08/12/2016 11:30:00 08/12/2016 15:30:00 [facility] [id number] 07/12/2016 09:56:00 07/12/2016 13:56:00 [facility] [id number] 07/12/2016 09:15:00 07/12/2016 13:15:00 [facility] [id number] 06/10/2016 09:00:00 06/10/2016 13:00:00 [facility] [id number] 05/10/2016 09:45:00 05/10/2016 13:45:00 [facility] [id number] 04/22/2016 15:00:00 04/22/2016 19:00:00 [facility] [id number] 04/10/2016 11:00:00 04/10/2016 15:00:00 [facility] [id number] 04/10/2016 09:30:00 04/10/2016 13:30:00 [facility] [id number] 03/15/2016 10:00:00 03/15/2016 14:00:00 [facility] [id number] 03/01/2016 10:45:00 03/01/2016 14:45:00 [facility] [id number] 02/14/2016 10:00:00 02/14/2016 14:00:00 [facility] [id number] 02/14/2016 09:15:00 02/14/2016 13:15:00 DIS CO FEJFAR [facility] CL [id number] 01/11/2016 10:30:00 01/11/2016 14:30:00 [facility] [id number] 11/15/2015 13:30:00 11/15/2015 17:30:00 [facility] [id number] 10/24/2015 09:30:00 10/24/2015 13:30:00 [facility] [id number] 09/22/2015 10:30:00 09/22/2015 14:30:00 DIS RB SLOCHRIS [facility] CL [id number] 09/22/2015 10:23:00 09/22/2015 14:23:00 [facility] [id number] 08/25/2015 10:30:00 08/25/2015 14:30:00 [facility] [id number] 08/25/2015 10:14:00 08/25/2015 14:14:00 [facility] [id number] 08/25/2015 09:15:00 08/25/2015 13:15:00 [id number] 08/25/2015 08:45:00 08/25/2015 12:45:00 DIS OP FEJFAR, [facility] OT [id number] 07/26/2015 11:30:00 07/26/2015 15:30:00 DIS CO FEJFAR, [facility] CL [id number] 07/26/2015 11:00:00 07/26/2015 15:00:00 DIS OP FEJFAR, [facility] OT [id number] 07/26/2015 10:00:00 07/26/2015 14:00:[facility] [id number] 06/28/2015 11:45:00 06/28/2015 15:45:00 [facility] [id number] 06/24/2015 10:38:00 06/24/2015 14:38:[id number] 06/24/2015 10:15:00 06/24/2015 14:15:[facility] [id number] 05/30/2015 10:15:00 05/30/2015 14:15:00 [facility] [id number] 05/30/2015 09:46:00 05/30/2015 13:46:00 [facility] [id number] 05/01/2015 10:00:00 05/01/2015 14:00:00 DIS RB SLOCHRIS [facility] CL [id number] 03/30/2015 09:45:00 03/30/2015 13:45:00 [facility] [id number] 03/02/2015 11:00:00 03/02/2015 15:00:00 [facility] [id number] 03/02/2015 09:42:00 03/02/2015 13:42:00 [facility] [id number] 02/01/2015 13:45:00 02/01/2015 17:45:00 [facility] [id number] 12/30/2014 11:45:00 12/30/2014 15:45:00 [facility] [id number] 11/28/2014 14:00:00 11/28/2014 18:00:00 [facility] [id number] 10/21/2014 10:30:00 10/21/2014 14:30:00 [facility] [id number] 09/20/2014 14:00:00 09/20/2014 18:00:00 [facility] [id number] 08/22/2014 15:00:00 08/22/2014 19:00:00 DIS CO FEJFAR [facility] CL [id number] 08/22/2014 13:32:00 08/22/2014 17:32:00 [facility] [id number] 08/22/2014 13:30:00 08/22/2014 17:30:00 [facility] [id number] 07/27/2014 14:30:00 07/27/2014 18:30:00 [facility] [id number] 10/25/2016 16:20:00 [facility] [id number] 07/12/2016 09:15:00 PEN RB [id number] 07/04/2016 08:53:00 ACT CHAMP BOLES [id number] 04/10/2016 12:02:00 DIS PB CHAMP MONTES [facility] OT [id number] 12/26/2015 08:10:00 ACT CHAMP BOLES [id number] 12/13/2015 09:30:00 PEN RB CHAMP MONTES [facility] CL [id number] 10/23/2015 09:30:00 PEN RB [id number] 06/27/2015 11:15:00 PEN RB [id number] 05/30/2014 08:19:00 05/30/2014 23:59:59 CLS Outpatient LAURY MAN MD [id number] 03/25/2014 07:59:00 03/25/2014 23:59:59 CLS Outpatient LAURY MAN MD [id number] 01/03/2014 10:32:00 01/03/2014 23:59:59 CLS Outpatient LAURY MAN MD [id number] 12/27/2013 09:03:00 12/27/2013 23:59:59 CLS Outpatient LAURY MAN MD [id number] 11/29/2013 09:30:00 11/29/2013 23:59:59 CLS Outpatient LAURY MAN MD [id number] 11/01/2013 09:43:00 11/01/2013 23:59:59 CLS Outpatient LAURY MAN MD [id number] 10/19/2013 11:32:00 10/19/2013 23:59:59 CLS Outpatient LAURY MAN MD [id number] 09/10/2013 08:26:00 09/10/2013 23:59:59 CLS Outpatient LAURY MAN MD [id number] 09/10/2013 08:26:00 09/10/2013 23:59:59 CLS Outpatient LAURY MAN MD [id number] 08/05/2013 09:18:00 08/05/2013 23:59:59 CLS Outpatient LAURY MAN MD [id number] 06/25/2013 07:49:00 06/25/2013 23:59:59 CLS Outpatient LAURY MAN MD [id number] 06/25/2013 07:49:00 06/25/2013 23:59:59 CLS Outpatient LAURY MAN MD [id number] 06/18/2013 09:26:00 06/18/2013 23:59:59 CLS Outpatient LAURY MAN MD [id number] 04/16/2013 09:44:00 04/16/2013 23:59:59 CLS Outpatient LAURY MAN MD [id number] 03/19/2013 08:53:00 03/19/2013 23:59:59 CLS Outpatient LAURY MAN MD [id number] 02/23/2013 15:11:00 02/23/2013 23:59:59 CLS Outpatient LAURY MAN MD [id number] 01/25/2013 15:27:00 01/25/2013 23:59:59 CLS Outpatient LAURY MAN MD [id number] 12/17/2012 10:14:00 12/17/2012 23:59:59 CLS Outpatient MONICA AVERY DDS [id number] 11/30/2012 15:49:00 11/30/2012 23:59:59 CLS Outpatient LAURY MAN MD [id number] 10/15/2012 09:26:00 10/15/2012 23:59:59 CLS Outpatient LAURY MAN MD [id number] 05/14/2012 10:01:00 05/14/2012 23:59:59 CLS Outpatient LAURY MAN MD [id number] 04/28/2012 10:37:00 04/28/2012 23:59:59 CLS Outpatient LAURY MAN MD [id number] 04/08/2012 10:51:00 04/08/2012 23:59:59 CLS Outpatient MIGUEL ENGINE SETTERELY Zeeshan [id number] 03/16/2012 09:02:00 03/16/2012 23:59:59 CLS Outpatient LAURY MAN MD [id number] 03/16/2012 09:02:00 03/16/2012 23:59:59 CLS Outpatient LAURY MAN MD [id number] 02/21/2012 13:52:00 02/21/2012 23:59:59 CLS Outpatient LAURY MAN MD [id number] 01/14/2012 15:10:00 01/14/2012 23:59:59 [place] [id number] 11/14/2011 15:14:00 11/14/2011 23:59:59 CLS Outpatient LAURY MAN MD [id number] 09/15/2012 13:38:00 Document Registration [id number] 06/26/2012 07:44:00 Document Registration [id number] 10/02/2013 15:41:00 10/02/2013 16:46:00 DIS Emergency OLIVER CARDONA DO [facility] ER BACK PAIN [id number] 07/22/2018 17:50:00 ACT Inpatient SULTANA MARINELLI DO [facility] 4TH PHYSICAL DEBILITY;UTI;S/P RT KNEE REPLACEMENT
[2018-07-22 19:52] VITALS: BP 144/63
[2018-07-22] MEDS ORDERED: fentaNYL INJECTION 100 MCG/2 ML AMP IJ PRN (20:15)
[2018-07-22] MEDS ORDERED: ACETAMINOPHEN 500 MG TAB (TYLENOL) PO PRN (20:15)
[2018-07-22] MEDS ORDERED: CATHETER FLUSH 10 ML SYR IV PRN (20:15)
[2018-07-22] MEDS ORDERED: ONDANSETRON 4 MG (ZOFRAN) ORAL DISSOLVE TAB SL PRN (20:15)
[2018-07-22 20:17] VITALS: BP 144/63
[2018-07-22 20:59] VITALS: BP 144/63
[2018-07-22] MEDS ORDERED: LOPERAMIDE 2 MG (IMODIUM) CAP PO PRN (21:15)
[2018-07-22] MEDS ORDERED: DOCUSATE SODIUM 100 MG (COLACE) CAP PO PRN (21:15)
[2018-07-22] MEDS ORDERED: CALCIUM CARBONATE 500 MG (TUMS) TAB.CHEW PO PRN (21:15)
[2018-07-22] MEDS ORDERED: MELATONIN 3 MG TABLET PO PRN (21:15)
[2018-07-22] MEDS ORDERED: diphenhydrAMINE 25 MG TAB (BENADRYL) PO PRN (21:15)
[2018-07-22] MEDS: AMITRIPTYLINE 25 MG (ELAVIL) TAB PO SCH (21:27)
[2018-07-22] MEDS: NS IV 1000 ML 1,000 ML IV SCH (21:27)
[2018-07-22] MEDS: LORazepam 0.5 MG (ATIVAN) TABLET PO SCH (21:28)
[2018-07-22] MEDS: morphine ER 30 MG (MS CONTIN) TAB PO SCH (21:28)
[2018-07-22] MEDS: GABAPENTIN 600 MG (NEURONTIN) TAB PO SCH (21:28)
[2018-07-22] MEDS ORDERED: RT-ALBUTEROL/IPRATROPIUM 3 ML (DUONEB) VIAL INH PRN (22:15)
[2018-07-23 00:22] VITALS: BP 142/63
[2018-07-23 04:00] VITALS: BP 128/63
[2018-07-23] MEDS: NS IV 1000 ML 1,000 ML IV SCH ×2 (07:39→16:32)
[2018-07-23] MEDS: RT-ALBUTEROL/IPRATROPIUM 3 ML (DUONEB) VIAL INH SCH (08:12)
--- NOTE | 2018-07-23 08:34 | Short Stay Summary-Hospitalist ---
History of Present Illness HPI/Chief Complaint CC: Weakness HPI: This is a 72yoWF patient of Dr. Richard who has a past medical history of chronic pain and narcotic dependence who presented after a few days after DC from [facility] in after undergoing a right knee replacement. It was uncomplicated and she was discharged on Friday after four nights in the hospital and doing fairly well but she tripped heading over to her sons house across the street and they brought her to the ER in [facility]. She does have chronic diarrhea so she has not had any bowel problems being maintained on chronic pain medication. I will go ahead an heplock her IV fluids since she is eating and drinking and she otherwise has no significant problems and she just wants her knee to work better so she can go home. I will order PT and OT and inpatient rehab evaluation. Source: patient Exam Limitations: no limitations Date Seen 07/23/18 Time Seen by a Provider: 09:00 Attending Physician Arlene Stephenson DO PCP Yonis Gomez MD Referring Physician Date of Admission Jul 22, 2018 at 17:50 Home Medications & Allergies Home Medications Reviewed patient Home Medication Reconciliation performed by pharmacy medication reconciliations certification technician and/or nursing. Patients Allergies have been reviewed. Allergies Allergies Coded Allergies amylase (Unverified Allergy, Mild, 05/04/10) aspirin (Unverified Allergy, Mild, 08/09/08) flurbiprofen (Unverified Allergy, Mild, 07/23/08) lipase (Unverified Allergy, Mild, 05/04/10) protease (Unverified Allergy, Mild, 05/04/10) NSAIDS (Non-Steroidal Anti-Inflamma (Verified Allergy, Unknown, 10/02/06) Penicillins (Verified Allergy, Unknown, 10/02/06) Sulfa (Sulfonamide Antibiotics) (Verified Allergy, Unknown, 10/02/06) chlorhexidine (Verified Allergy, Unknown, RASH/SORES, 07/23/18) rofecoxib (Verified Allergy, Unknown, 10/02/06) tramadol (Verified Allergy, Unknown, PT CAN TAKE MORPHINE WITHOUT PROBLEM, 10/02/06) trazodone (Verified Allergy, Unknown, 10/02/06) alprazolam (Unverified Adverse Reaction, Unknown, 10/02/13) STATES MAKES HER "LOOPY" diazepam (Unverified Adverse Reaction, Unknown, 10/02/13) STATES IT MAKES HER "LOOPY" Past Ojzcfal-Ruiron-Tgybhf Hx Past Med/Social Hx: Reviewed Nursing Past Med/Soc Hx, Reviewed and Corrections made Patient Social History Marrital Status: single Employed/Student: unemployed Alcohol Use: Denies Use Recreational Drug Use: No Smoking Status: Never a Smoker 2nd Hand Smoke Exposure: No Recent Foreign Travel: No Contact w/other who traveled: No Recent Hopitalizations: Yes (knee replacement at [facility]) Recent Infectious Disease Expo: No Seasonal Allergies Seasonal Allergies: No Past Medical History Surgeries: Hysterectomy, Joint Replacement, Orthopedic (right knee) Cardiac: High Cholesterol, Hypertension Neurological: Headaches /Migraines, TIA Reproductive: No Genitourinary: Renal Failure Gastrointestinal: Pancreatitis Musculoskeletal: Osteoporosis, Fibromyalgia HEENT: Cataract, Eye Injury Psychosocial: Anxiety History of Blood Disorders: Yes (anemia) Review of Systems Constitutional: see HPI, dizziness, malaise, weakness EENTM: no symptoms reported Respiratory: no symptoms reported Cardiovascular: no symptoms reported Gastrointestinal: no symptoms reported Genitourinary: no symptoms reported Musculoskeletal: joint pain Skin: no symptoms reported Psychiatric/Neurological: No Symptoms Reported All Other Systems Reviewed Negative Unless Noted: Yes Physical Exam Physical Exam Vital Signs Vital Signs - First Documented 07/22/18 07/22/18 07/23/18 15:25 20:59 08:35 Temp 97.8 Pulse 98 Resp 18 B/P (MAP) 146/48 (80) Pulse Ox 91 O2 Delivery Room Air O2 Flow Rate 0.00 FiO2 21 Capillary Refill : Less Than 3 Seconds Height, Weight, BMI Height: 5'7.00" Weight: 168lbs. 7.0oz. 76.531377ft; 24.5 BMI Method:Stated General Appearance: No Apparent Distress, WD/WN, Chronically ill, Thin Eyes: Bilateral Eye Normal Inspection, Bilateral Eye PERRL, Bilateral Eye EOMI HEENT: PERRL/EOMI, TMs Normal, Normal ENT Inspection, Pharynx Normal, Moist Mucous Membranes Neck: Full Range of Motion, Normal Inspection Respiratory: Chest Non Tender, Lungs Clear, Normal Breath Sounds, No Accessory Muscle Use, No Respiratory Distress Cardiovascular: Regular Rate, Rhythm, Normal Peripheral Pulses Gastrointestinal: Normal Bowel Sounds, Non Tender, Soft Neurologic/Psychiatric: Alert, Oriented x3, Normal Mood/Affect, 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 Short Stay Diagnosis Discharge Diagnosis-Short Stay Admission Diagnosis Assessment: Severe debility following right knee replacement at [facility] last week Chronic diarrhea Chronic pancreatitis Narcotic dependency Fibromyalgia Early UTI acute Plan: Home meds PT/OT IRF HH? Final Discharge Diagnosis Assessment: Severe debility following right knee replacement at [facility] last week Chronic diarrhea Chronic pancreatitis Narcotic dependency Fibromyalgia Early UTI acute Plan: Home meds PT/OT IRF HH? Conclusion Plan Plan: Home meds PT/OT IRF HH? Diagnosis/Problems Diagnosis/Problems (1) Urinary tract infection Status: Acute Qualifiers: Qualified Codes: N30.00 - Acute cystitis without hematuria (2) Physical debility Status: Acute (3) Narcotic dependence Status: Chronic (4) Chronic lower back pain Status: Chronic Qualifiers: Qualified Codes: M54.5 - Low back pain; G89.29 - Other chronic pain (5) History of knee replacement procedure of right knee Status: Chronic Clinical Quality Measures DVT/VTE Risk/Contraindication: Risk Factor Score Per Nursin RFS Level Per Nursing on Admit: 3=High ARLENE STEPHENSON DO Jul 23, 2018 08:33
[2018-07-23 08:35] VITALS: BP 147/63
[2018-07-23] MEDS ORDERED: RANI150T11 PO (09:33)
[2018-07-23] MEDS ORDERED: HYDR-700 PO (09:33)
[2018-07-23] MEDS ORDERED: LISI-552 PO (09:33)
[2018-07-23] MEDS ORDERED: LORA1TAB PO ×2 (09:33)
[2018-07-23] MEDS ORDERED: IPRA4AER INH (09:33)
[2018-07-23] MEDS ORDERED: ALBU2.5V4 NEB (09:33)
[2018-07-23] MEDS ORDERED: CLOP75TA28 PO (09:33)
[2018-07-23] MEDS ORDERED: PROM25TA14 PO (09:33)
[2018-07-23] MEDS ORDERED: DIPH1TAB25 PO (09:33)
[2018-07-23] MEDS ORDERED: AMIT50TA3 PO (09:33)
[2018-07-23] MEDS ORDERED: OXYC10TA7 PO (09:33)
[2018-07-23] MEDS ORDERED: LANS30CA PO (09:33)
[2018-07-23] MEDS ORDERED: SUMA100T3 PO (09:33)
[2018-07-23] MEDS ORDERED: PSEU30TA18 PO (09:33)
[2018-07-23] MEDS ORDERED: GBPN600T PO (09:33)
--- NOTE | 2018-07-23 09:35 | NUR ---
WENT OVER THE EXT MED HX WITH THE PATIENT AND SHE VERIFIED HOW SHE TAKES EACH MEDICATION. SHE STATES SHE DOES NOT TAKE ANYTHING OTC.
[2018-07-23] MEDS: GABAPENTIN 600 MG (NEURONTIN) TAB PO SCH ×3 (10:01→21:31)
[2018-07-23] MEDS: lisINopril 20 MG (PRINIVIL) TABLET PO SCH (10:01)
[2018-07-23] MEDS: LORazepam 0.5 MG (ATIVAN) TABLET PO SCH ×2 (10:01→21:30)
[2018-07-23] MEDS: SENNA W/DOCUSATE (SENOKOT S) TABLET PO SCH ×2 (10:02→21:31)
[2018-07-23] MEDS: morphine ER 30 MG (MS CONTIN) TAB PO SCH ×2 (10:02→20:25)
[2018-07-23] MEDS: CLOPIDOGREL 75 MG (PLAVIX) TABLET PO SCH (10:02)
--- NOTE | 2018-07-23 11:30 | Physical Therapy Evaluation ---
PT Evaluation-General Medical Diagnosis Admission Date Jul 22, 2018 at 17:50 Medical Diagnosis: Physical debility/UTI Onset Date: Jul 22, 2018 Therapy Diagnosis Therapy Diagnosis: debililty Height/Weight Height (Feet): 5 Height (Inches): 7.00 Weight (Pounds): 168 Weight (Ounces): 7.0 Precautions Precautions/Isolations: Fall Prevention, Standard Precautions Weight Bear Status Right Lower Extremity: Right Full Weight Bearing Left Lower Extremity: Left Full Weight Bearing Referral Physician: Seema Reason for Referral: Evaluation/Treatment Medical History Pertinent Medical History: COPD, GERD, Heart Failure, HTN Additional Medical History s/p right TKR 1 week ago and was receiving home health Current History ER via son secondary to "acting oddly" and decreased mobility Reviewed History: Yes Social History Home: Single Level Current Living Status: Other Family Entry Into Home: Ramp Prior/Core FIM Prior Level of Function Therapy Code Descriptions/Definitions Functional [place] Measure: 0=Not Assessed/NA 4=Minimal Assistance 1=Total Assistance 5=Supervision or Setup 2=Maximal Assistance 6=Modified [place] 3=Moderate Assistance 7=Complete [place] Therapy Quality Codes: 6 Independent with activity with or without an assistive device 5 Patient requires set up or clean up by helper. Patient completes activity by themselves 4 Supervision or touching assist (CGA). [place] provide cues , steadying assist 3 The helper provides less than half the effort to complete the activity 2 The helper provides more than half the effort to complete the activity 1 Dependent. The helper does all the effort to complete an activity 7 Patient refused to complete or attempt activity 9 The patient did not perform the activity before the current illness or injury 88 Not attempted due to Medical conditions or safety concerns Functional Abilities and Goals: Independent: Patient completed the activities by him/herself, with or without an assistive device, with no assistance from a helper. Needed Some Help: Patient needed partial assistance from another person to complete activities. Dependent: A helper completed the activities for the patient. Unknown: Not Applicable: Bed Mobility: 6 Transfers (B,C,W/C) (FIM): 6 Gait: 6 Indoor Mobility (Ambulation): Independent Prior Devices Use: Walker PT Evaluation-Current Subjective Patient agrees to PT. C/o swelling right knee/thigh with noted contusions. Pain Numeric Pain Scale: 8 Location: Right Location Body Site: Knee Pain Description: Acute Objective Patient Orientation: Person, Time, Situation Problem Solving: Fair ROM/Strength ROM Lower Extremities right knee flexion 88 degrees/extension 6 degrees/left LE WFL Strength Lower Extremities right LE 4-/5 grossly/left LE 4/5 grossly Integumentary/Posture Integumentary refer to nursing notes Bowel Incontinence: No Bladder Incontinence: No Posture WFL Neuromuscular (Tone, Coordination, Reflexes) grossly intact Sensory Vision: Functional Hearing: Functional Sensation Right Lower Extremit: Intact Sensation Left Lower Extremity: Intact Transfers Therapy Code Descriptions/Definitions Functional [place] Measure: 0=Not Assessed/NA 4=Minimal Assistance 1=Total Assistance 5=Supervision or Setup 2=Maximal Assistance 6=Modified [place] 3=Moderate Assistance 7=Complete [place] Transfers (B, C, W/C) (FIM): 6 Scootin Supine to/from Sit: 6 Sit to/from Stand: 6 Gait Mode of Locomotion: Walk Anticipated Mode of Locomotion: Walk Gait (FIM): 6 Distance (FIM): 3=150 ft Distance: 275' Gait Level of Assist: 6 Gait Assistive Device: FWW Comments/Gait Description steady, reciprocal pattern Balance Sitting Static: Normal Sitting Dynamic: Normal Standing Static: Good Assessment/Needs 72 y.o. female, will be seen short term by skilled PT to address functional mobility to ensure safe return to home with home health intervention and family support. Rehab Potential: Good PT Short Term Goals Short Term Goals Time Frame: Jul 29, 2018 Transfers (B,C,W/C) (FIM): 6 Gait (FIM): 6 Distance (FIM): 3=150 ft Gait Distance Comment: 300' Gait Level of Assist: 6 Gait Assistive Device: FWW PT Plan Problem List Problem List: Safety Treatment/Plan Treatment Plan: Continue Plan of Care Treatment Plan: Bed Mobility, Education, Functional Activity Oscar, Functional Strength, Gait, Safety, Therapeutic Exercise, Transfers Treatment Duration: Jul 28, 2018 Frequency: 6 times per week Estimated Hrs Per Day: .25 hour per day Patient and/or Family Agrees t: Yes Discharge Recommendations Therapy D/C Recommendations: Home w/ Family Support, Physical Therapy Home Care Time/GCodes Time In: 1055 Time Out: 1113 Total Billed Treatment Time: 18 Total Billed Treatment 1 visit EVModC 18 min MARGARITO GREEN PT Jul 23, 2018 11:30
[2018-07-23 12:00] VITALS: BP 142/58
--- NOTE | 2018-07-23 14:10 | Occupational Therapy Eval ---
OT Evaluation-General/PLF Medical Diagnosis Admission Date Jul 22, 2018 at 17:50 Medical Diagnosis: Physical debility/UTI Onset Date: Jul 22, 2018 Therapy Diagnosis Therapy Diagnosis: Weakness Height/Weight Height (Feet): 5 Height (Inches): 7.00 Weight (Pounds): 168 Weight (Ounces): 7.0 Precautions Precautions/Isolations: Fall Prevention, Standard Precautions Weight Bear Status Weight Bearing Restriction: Weight Bearing/Tolerated Referral Physician: Seema Referral Reason: Activity Tolerance, Self Care, Evaluation/Treatment, Strengthening/ROM Medical History Pertinent Medical History: COPD, CVA, GERD, Heart Failure, HTN Additional Medical History Hip replacement, Left knee replacement Current History Pt. had knee replacement last week. Came back to ER due to having UTI and some AMS. Reviewed History: Yes Social History Home: Single Level Current Living Status: Alone Entry Into Home: Ramp Pt. states that she has two stories but does not use the top floor. ADL-Prior Level of Function Therapy Code Descriptions/Definitions Functional [place] Measure: 0=Not Assessed/NA 4=Minimal Assistance 1=Total Assistance 5=Supervision or Setup 2=Maximal Assistance 6=Modified [place] 3=Moderate Assistance 7=Complete [place] Therapy Quality Codes: 6 Independent with activity with or without an assistive device 5 Patient requires set up or clean up by helper. Patient completes activity by themselves 4 Supervision or touching assist (CGA). [place] provide cues , steadying assist 3 The helper provides less than half the effort to complete the activity 2 The helper provides more than half the effort to complete the activity 1 Dependent. The helper does all the effort to complete an activity 7 Patient refused to complete or attempt activity 9 The patient did not perform the activity before the current illness or injury 88 Not attempted due to Medical conditions or safety concerns Functional Abilities and Goals: Independent: Patient completed the activities by him/herself, with or without an assistive device, with no assistance from a helper. Needed Some Help: Patient needed partial assistance from another person to complete activities. Dependent: A helper completed the activities for the patient. Unknown: Not Applicable: ADL PLOF Comments Pt. states that she is independent with all tasks, but was using a walker since her knee surgery last week. Reports that her sister takes her to get groceries. Self Care: Independent Functional Cognition: Unknown DME/Equipment: Tub/Shower DME/Equipment Comments Walker Drive Self: No OT Current Status Subjective Pt. does not report pain. Appearance Pt. up in chair. Alert and oriented and agrees to shower. Mental Status/Objective Patient Orientation: Person, Place, Time, Situation Current Upper Extremity ROM WFL Upper Extremity Strength WFL ADL-Treatment Therapy Code Descriptions/Definitions Functional [place] Measure: 0=Not Assessed/NA 4=Minimal Assistance 1=Total Assistance 5=Supervision or Setup 2=Maximal Assistance 6=Modified [place] 3=Moderate Assistance 7=Complete [place] Therapy Quality Codes: 6 Independent with activity with or without an assistive device 5 Patient requires set up or clean up by helper. Patient completes activity by themselves 4 Supervision or touching assist (CGA). [place] provide cues , steadying assist 3 The helper provides less than half the effort to complete the activity 2 The helper provides more than half the effort to complete the activity 1 Dependent. The helper does all the effort to complete an activity 7 Patient refused to complete or attempt activity 9 The patient did not perform the activity before the current illness or injury 88 Not attempted due to Medical conditions or safety concerns Grooming (FIM): 5 (Set up to brush hair.) Bathing (FIM): 5 (Set up in shower to wash all parts.) Upper Body Dressing (FIM): 5 (Pt. able to doff bra and hand to OT. Donned fresh hospital gown.) Lower Body Dressing (FIM): 5 (SBA to doff/don slipper socks. OT doffed/donned right THOMAS hose.) Toileting (FIM): 6 Transfers (B, C, W/C) (FIM): 5 Toilet/Commode Transfer (FIM): 5 Shower Transfer (FIM): 5 Other Treatments OT provided SBA with pt. in shower. After ADLs, pt. able to ambulate back to bed and transfer with little difficulty. All needs met. Education OT Patient Education: Correct positioning, Modified ADL techniques, Progress toward Goal/Update tx plan, Purpose of tx/functional activities, Reviewed precautions, Rehab process, Transfer techniques Teaching Recipient: Patient Teaching Methods: Demonstration, Discussion Response to Teaching: Verbalize Understanding, Return Demonstration OT Short Term Goals Short Term Goals Transfers (B,C,W/C) (FIM): 6 1=Demonstrate adherence to instructed precautions during ADL tasks. 2=Patient will verbalize/demonstrate understanding of assistive devices/modifications for ADL. 3=Patient will improve strength/tolerance for activity to enable patient to perform ADL's. OT Gang Leader Goals Prison Goals Time Frame: Jul 30, 2018 Eating (FIM): 6 Grooming(FIM): 6 Bathing(FIM): 6 Upper Body Dressing(FIM): 6 Lower Body Dressing(FIM): 6 Toileting(FIM): 6 Transfers (B,C,W/C) (FIM): 6 Toilet/Commode Transfer(FIM): 6 Shower Transfer(FIM): 6 Additional Goals: 1-Demonstrate ADL Tasks, 2-Verbalize Understanding, 3- ImproveStrength/Oscar 1=Demonstrate adherence to instructed precautions during ADL tasks. 2=Patient will verbalize/demonstrate understanding of assistive devices/modifications for ADL. 3=Patient will improve strength/tolerance for activity to enable patient to perform ADL's. OT Education/Plan Problem List/Assessment Assessment: Decreased Activ Tolerance, Impaired I ADL's, Impaired Self-Care Skills Discharge Recommendations Plan/Recommendations: Continue POC Therapy D/C Recommendations: Home w/ Family Support, Occupational Therapy Home Care Equpiment Recommendations-D/C: Extended Bath Bench Treatment Plan/Plan of Care Treatment,Training & Education: Yes Patient would benefit from OT for education, treatment and training to promote independence in ADL's, mobility, safety and/or upper extremity function for ADL's. Plan of Care: ADL Retraining, Functional Mobility Treatment Duration: Jul 30, 2018 Frequency: 5 times per week Estimated Hrs Per Day: .5 hour per day Agreement: Yes Rehab Potential: Good Time/GCodes Start Time: 11:15 Stop Time: 11:45 Total Time Billed (hr/min): 30 Billed Treatment Time 1, EVL x 15minutes, ADL x 15minutes SHABNAM HEATH OT Jul 23, 2018 14:10
--- NOTE | 2018-07-23 15:24 | NUR ---
IRF Evaluation Order received to evaluate patient for the ARU. Chart reviewed and according to therapy notes, patient is ambulating (275ft, FWW) and transferring with modified independence, as well as completing ADLs with supervision to modified independence; therefore, the patient does not require intensive therapies, at this time. Thank you for this referral.
[2018-07-23 16:00] VITALS: BP 124/63
[2018-07-23] MEDS: cefTRIAXone 1,000 MG/SWFI 10 ML IV PUSH IV SCH ×4 (17:47→18:00)
[2018-07-23 19:40] VITALS: BP 155/76
[2018-07-23] MEDS: AMITRIPTYLINE 25 MG (ELAVIL) TAB PO SCH (21:31)
[2018-07-24] VITALS: BP 154/76
[2018-07-24 04:00] VITALS: BP 178/75
[2018-07-24 05:13] LABS: BASOPHILS % (AUTO) 1 % (0-10); EOSINOPHILS # (AUTO) 0.4 10^3/uL (0.0-0.3); EOSINOPHILS % (AUTO) 6 % (0-10); HEMATOCRIT 32 % (35-52); HEMOGLOBIN 10.3 G/DL (11.5-16.0); LYMPHOCYTES # (AUTO) 1.4 X 10^3 (1.0-4.0); LYMPHOCYTES % (AUTO) 26 % (12-44); MEAN CORPUSCULAR HEMOGLOBIN 29 PG (25-34); MEAN CORPUSCULAR HGB CONC 33 G/DL (32-36); MEAN CORPUSCULAR VOLUME 88 FL (80-99); MEAN PLATELET VOLUME 9.6 FL (7.4-10.4); MONOCYTES # (AUTO) 0.7 X 10^3 (0.0-1.0); MONOCYTES % (AUTO) 12 % (0-12); NEUTROPHILS % (AUTO) 55 % (42-75); PLATELET COUNT 250 10^3/uL (130-400); RED CELL DISTRIBUTION WIDTH 13.7 % (10.0-14.5); WHITE BLOOD COUNT 5.5 10^3/uL (4.3-11.0)
[2018-07-24 05:53] LABS: ALANINE AMINOTRANSFERASE 19 U/L (0-55); ALBUMIN 3.2 GM/DL (3.2-4.5); ALKALINE PHOSPHATASE 146 U/L (40-136); BILIRUBIN,TOTAL 0.6 MG/DL (0.1-1.0); BUN/CREATININE RATIO 14; CALCIUM 8.7 MG/DL (8.5-10.1); CARBON DIOXIDE 22 MMOL/L (21-32); CHLORIDE 108 MMOL/L (98-107); CREATININE SERUM 0.72 MG/DL (0.60-1.30); GFR ESTIMATED > 60; GLUCOSE 123 MG/DL (70-105); POTASSIUM 3.7 MMOL/L (3.6-5.0); SODIUM 138 MMOL/L (135-145); TOTAL PROTEIN 5.6 GM/DL (6.4-8.2)
[2018-07-24] MEDS: RT-ALBUTEROL/IPRATROPIUM 3 ML (DUONEB) VIAL INH SCH (07:58)
[2018-07-24] MEDS: lisINopril 20 MG (PRINIVIL) TABLET PO SCH (08:06)
[2018-07-24] MEDS: morphine ER 30 MG (MS CONTIN) TAB PO SCH (08:06)
[2018-07-24] MEDS: LORazepam 0.5 MG (ATIVAN) TABLET PO SCH (08:06)
[2018-07-24] MEDS: CLOPIDOGREL 75 MG (PLAVIX) TABLET PO SCH (08:07)
[2018-07-24] MEDS: SENNA W/DOCUSATE (SENOKOT S) TABLET PO SCH (08:07)
[2018-07-24] MEDS: GABAPENTIN 600 MG (NEURONTIN) TAB PO SCH ×2 (08:07→13:39)
[2018-07-24 08:20] VITALS: BP 112/56
--- NOTE | 2018-07-24 10:19 | Physical Therapy Daily Note ---
PT Daily Note-Current Subjective Patient agrees to PT. No c/o. Pain Numeric Pain Scale: 3 Location: Right Location Body Site: Knee Pain Description: Acute Mental Status Patient Orientation: Normal For Age Transfers Therapy Code Descriptions/Definitions Functional [place] Measure: 0=Not Assessed/NA 4=Minimal Assistance 1=Total Assistance 5=Supervision or Setup 2=Maximal Assistance 6=Modified [place] 3=Moderate Assistance 7=Complete [place] Therapy Quality Codes: 6 Independent with activity with or without an assistive device 5 Patient requires set up or clean up by helper. Patient completes activity by themselves 4 Supervision or touching assist (CGA). [place] provide cues , steadying assist 3 The helper provides less than half the effort to complete the activity 2 The helper provides more than half the effort to complete the activity 1 Dependent. The helper does all the effort to complete an activity 7 Patient refused to complete or attempt activity 9 The patient did not perform the activity before the current illness or inju ry 88 Not attempted due to Medical conditions or safety concerns Transfers (B, C, W/C) (FIM): 6 Scootin Rollin Supine to/from Sit: 6 Sit to/from Stand: 6 Bed to/from Chair: 6 Weight Bearing Right Lower Extremity: Right Full Weight Bearing Left Lower Extremity: Left Full Weight Bearing Gait Training Gait (FIM): 6 Distance (FIM): 3=150 ft Distance: 525' Gait Level of Assist: 6 Gait Assistive Device: FWW safe and functional Exercises Supine Ex: Ankle pumps, Quad Set, Heel Slides, Straight leg raise Supine Reps: 15 Seated Therapy Exercises: Long arc quads Seated Reps: 15 Assessment Patient is currently at [facility] with all gross motor skills safely and does not require continued skilled therapy intervention. ROM right knee WFL. Patient has been instructed to perform HEP PRN to improve ROM right LE. PT Short Term Goals Short Term Goals Time Frame: Jul 29, 2018 Transfers (B,C,W/C) (FIM): 6 Gait (FIM): 6 Distance (FIM): 3=150 ft Gait Distance Comment: 300' Gait Level of Assist: 6 Gait Assistive Device: FWW PT Plan Treatment/Plan Treatment Plan: Discontinue PT, goals met Treatment Plan: Bed Mobility, Education, Functional Activity Oscar, Functional Strength, Gait, Safety, Therapeutic Exercise, Transfers Treatment Duration: Jul 28, 2018 Frequency: 6 times per week Estimated Hrs Per Day: .25 hour per day Patient and/or Family Agrees t: Yes Time/GCodes Time In: 946 Time Out: 956 Total Billed Treatment Time: 10 Total Billed Treatment 1 visit FA 10 min MARGARITO GREEN PT Jul 24, 2018 10:19
--- NOTE | 2018-07-24 10:52 | NUR ---
CM/SS spoke with the patient for discharge planning. She will have her son or friend transport this day at discharge. Attempted to call the son with no answer, will attempt again. Patient did not think that she had [facility] PT or RNing set up, was trying to confirm with son also.
--- NOTE | 2018-07-24 11:02 | Discharge Summary-Hospitalist ---
Diagnosis/Chief Complaint Date of Admission Jul 22, 2018 at 17:50 Date of Discharge Discharge Date: Jul 24, 2018 Admission Diagnosis Assessment: Severe debility following right knee replacement at [facility] last week Chronic diarrhea Chronic pancreatitis Narcotic dependency Fibromyalgia Early UTI acute Plan: Home meds PT/OT IRF HH? Discharge Diagnosis (1) Physical debility Status: Acute (2) Narcotic dependence Status: Chronic (3) Chronic lower back pain Status: Chronic (4) History of knee replacement procedure of right knee Status: Chronic Discharge Summary Discharge Physical Exam Allergies: Coded Allergies: amylase (Unverified Allergy, Mild, 05/04/10) aspirin (Unverified Allergy, Mild, 08/09/08) flurbiprofen (Unverified Allergy, Mild, 07/23/08) lipase (Unverified Allergy, Mild, 05/04/10) protease (Unverified Allergy, Mild, 05/04/10) NSAIDS (Non-Steroidal Anti-Inflamma (Verified Allergy, Unknown, 10/02/06) Penicillins (Verified Allergy, Unknown, 10/02/06) Sulfa (Sulfonamide Antibiotics) (Verified Allergy, Unknown, 10/02/06) chlorhexidine (Verified Allergy, Unknown, RASH/SORES, 07/23/18) rofecoxib (Verified Allergy, Unknown, 10/02/06) tramadol (Verified Allergy, Unknown, PT CAN TAKE MORPHINE WITHOUT PROBLEM, 10/02/06) trazodone (Verified Allergy, Unknown, 10/02/06) alprazolam (Unverified Adverse Reaction, Unknown, 10/02/13) STATES MAKES HER "LOOPY" diazepam (Unverified Adverse Reaction, Unknown, 10/02/13) STATES IT MAKES HER "LOOPY" Vitals & I&Os Vital Signs Date Time Temp Pulse Resp B/P (MAP) Pulse Ox O2 Delivery O2 Flow Rate FiO2 07/24/18 08:20 97.2 70 20 112/56 (74) 94 Room Air 0.00 07/22/18 20:59 21 General Appearance: No Apparent Distress, WD/WN, Chronically ill Respiratory: Chest Non Tender, Lungs Clear, Normal Breath Sounds, No Accessory Muscle Use, No Respiratory Distress Cardiovascular: Regular Rate, Rhythm, No Edema, No Gallop, No JVD, No Murmur, Normal Peripheral Pulses Neurologic/Psychiatric: Alert, Oriented x3, No Motor/Sensory Deficits, Normal Mood/Affect Hospital Course Was the Problem List Reviewed?: Yes Hospital course: Patient had an uneventful in brief hospital course and observation due to severe debility following a right knee replacement in [place]. UA showed slight abnormality so she was given Rocephin empirically in the ER. Pain was well-controlled on home meds. She was found to not meet criteria for any inpatient rehabilitation admission he'll go home with outpatient physical therapy. She has a narcotic agreement with Dr. Casiano she will have a follow-up with him next week. Labs (last 24 hrs) Laboratory Tests 07/24/18 04:34: White Blood Count 5.5, Red Blood Count 3.58L, Hemoglobin 10.3L, Hematocrit 32L, Mean Corpuscular Volume 88, Mean Corpuscular Hemoglobin 29, Mean Corpuscular Hemoglobin Concent 33, Red Cell Distribution Width 13.7, Platelet Count 250, Mean Platelet Volume 9.6, Neutrophils (%) (Auto) 55, Lymphocytes (%) (Auto) 26, Monocytes (%) (Auto) 12, Eosinophils (%) (Auto) 6, Basophils (%) (Auto) 1, Neutrophils # (Auto) 3.0, Lymphocytes # (Auto) 1.4, Monocytes # (Auto) 0.7, Eosinophils # (Auto) 0.4H, Basophils # (Auto) 0.0, Sodium Level 138, Potassium Level 3.7, Chloride Level 108H, Carbon Dioxide Level 22, Anion Gap 8, Blood Urea Nitrogen 10, Creatinine 0.72, Estimat Glomerular Filtration Rate > 60, BUN/Cr eatinine Ratio 14, Glucose Level 123H, Calcium Level 8.7, Corrected Calcium 9.3, Total Bilirubin 0.6, Aspartate Amino Transf (AST/SGOT) 18, Alanine Aminotransferase (ALT/SGPT) 19, Alkaline Phosphatase 146H, Total Protein 5.6L, Albumin 3.2 Microbiology 07/22/18 Urine Culture - Final, Complete Gram Pos Mixed Bacterial Kiana Patient resulted labs reviewed. Pending Labs Laboratory Tests 07/24/18 04:34: White Blood Count 5.5, Red Blood Count 3.58, Hemoglobin 10.3, Hematocrit 32, Mean Corpuscular Volume 88, Mean Corpuscular Hemoglobin 29, Mean Corpuscular Hemoglobin Concent 33, Red Cell Distribution Width 13.7, Platelet Count 250, Mean Platelet Volume 9.6, Neutrophils (%) (Auto) 55, Lymphocytes (%) (Auto) 26, Monocytes (%) (Auto) 12, Eosinophils (%) (Auto) 6, Basophils (%) (Auto) 1, Neutrophils # (Auto) 3.0, Lymphocytes # (Auto) 1.4, Monocytes # (Auto) 0.7, Eosinophils # (Auto) 0.4, Basophils # (Auto) 0.0, Sodium Level 138, Potassium Level 3.7, Chloride Level 108, Carbon Dioxide Level 22, Anion Gap 8, Blood Urea Nitrogen 10, Creatinine 0.72, Estimat Glomerular Filtration Rate > 60, BUN/Creatinine Ratio 14, Glucose Level 123, Calcium Level 8.7, Corrected Calcium 9.3, Total Bilirubin 0.6, Aspartate Amino Transf (AST/SGOT) 18, Alanine Aminotransferase (ALT/SGPT) 19, Alkaline Phosphatase 146, Total Protein 5.6, Albumin 3.2 Discussion & Recommendations Discharge Planning: <30 minutes discharge planning Discharge Home Medications: Active Scripts Active Reported Albuterol Sulfate 2.5 Mg/3 Ml Vial.neb 2.5 Mg NEB Q6H PRN Combivent Respimat Inhal [place] (Albuterol/Ipratropium) 4 Gm Aero 2 Puff INH QID PRN Diphenoxylate-Atrop 2.5-0.025 (Diphenoxylate HCl/Atropine) 1 Each Tablet 2 Tab PO QID PRN Ranitidine HCl 150 Mg Tablet 150 Mg PO BID Lansoprazole 30 Mg Capsule.dr 30 Mg PO DAILY [employer] (Pseudoephedrine HCl) 30 Mg Tablet 30 Mg PO Q4H PRN Gabapentin 600 Mg Tablet 600 Mg PO TID Hydroxyzine HCl 25 Mg Tablet 25 Mg PO QID PRN Amitriptyline HCl 50 Mg Tablet 50 Mg PO HS Clopidogrel (Clopidogrel Bisulfate) 75 Mg Tablet 75 Mg PO DAILY Sumatriptan Succinate 100 Mg Tablet 100 Mg PO UD PRN PER [facility] RECOMMENDED INSTRUCTIONS Promethazine Tablet (Promethazine HCl) 25 Mg Tablet 25 Mg PO TID PRN Lorazepam 1 Mg Tablet 0.5 Mg PO DAILY TAKES 1/2 (1MG) TABLET Oxycodone HCl 10 Mg Tablet 10-20 Mg PO QID PRN Lisinopril 20 Mg Tablet 10 Mg PO BID TAKES 1/2 (20MG) TABLET Lorazepam 1 Mg Tablet 1 Mg PO HS Instructions to patient/family Please see electronic discharge instructions given to patient. Clinical Quality Measures DVT/VTE Risk/Contraindication: Risk Factor Score Per Nursin RFS Level Per Nursing on Admit: 3=High Problem Qualifiers (1) Chronic lower back pain: Back pain laterality: unspecified Sciatica presence: unspecified whether sciatica present Qualified Codes: M54.5 - Low back pain; G89.29 - Other chronic pain SULTANA MARINELLI DO Jul 24, 2018 11:02
[2018-07-24 12:52] VITALS: BP 129/58
--- NOTE | 2018-07-24 13:33 | Occ Therapy Progress Note ---
Therapy Progress Note Pt to discharge today to home. Pt stated that she is going to shower in son's home, has walk-in shower with a seat. Has elevated toilet seat and will be moving TV into bedroom for a higher place to sit for easier transfer. 1 [id number] TINY KHAN Jul 24, 2018 13:32
--- NOTE | 2018-07-24 14:05 | NUR ---
CM/SS patient's sister and daughter in law were here at hospital to transport her home. They stated that she had a RN and PT coming to the home but patient preference would be for Santy Harris to come to the home, provided the script for this and they will contact him. They will resume her HHC also. They had no other needs at discharge.
[2018-07-24 14:15] VITALS: BP 129/58
== END 2018-07-24 10:56 | disposition home health service (06) ==
LOC: EDUNIT# 15:15 → ER FS 15:16 → 4TH 17:50 → UNDOADMOB 17:50 → 4TH 19:45 → UNDODISOB 07-24 14:15
PROVIDERS: ADMIT Internal Medicine; ATTEND Internal Medicine
DX: N30.00 Acute cystitis without hematuria (principal); R53.81 Other malaise; M54.5 Low back pain; G89.29 Other chronic pain; F11.20 Opioid dependence, uncomplicated; Z88.0 Allergy status to penicillin; Z88.2 Allergy status to sulfonamides; J44.9 Chronic obstructive pulmonary disease, unspecified; N19 Unspecified kidney failure; K21.9 Gastro-esophageal reflux disease without esophagitis; M19.91 Primary osteoarthritis, unspecified site; M79.10 Myalgia, unspecified site; Z79.899 Other long term (current) drug therapy; Z96.651 Presence of right artificial knee joint
CPT/HCPCS: 36415; 80053; 81000; 85025; 87088; 94640; 94760; 96372; 99284; G0378

== ENCOUNTER 2018-08-12 02:42 | Emergency (ER) | payer MEDICAID ==
[~2018-08-12] VITALS: Ht 170.2 cm; Wt 68.9 kg
[~2018-08-12 02:42] MED LIST changes: +ALBU2.5V4 NEB; +AMIT50TA3 PO; +CLOP75TA28 PO; +GBPN600T PO; +HYDR-700 PO; +IPRA4AER INH; +LANS30CA PO; +LISI-552 PO; +LORA1TAB PO; +OXYC10TA7 PO; +PROM25TA14 PO; +PSEU30TA18 PO; +RANI150T11 PO; +SUMA100T3 PO
--- NOTE | 2018-08-12 02:56 | ED Psychosocial ---
General Source: patient, EMS, RN notes reviewed, old records Exam Limitations: intoxication History of Present Illness Date Seen by Provider: Aug 12, 2018 Time Seen by Provider: 02:54 Initial Comments Patient reportedly found face down on the floor by her son. EMS states there were multiple pills scattered around her on the floor. Patient has a long history of medication/substance abuse. Timing/Duration: just prior to arrival, constant Severity: moderate Associated Symptoms: denies symptoms Allergies and Home Medications Allergies Coded Allergies: amylase (Unverified Allergy, Mild, 05/04/10) aspirin (Unverified Allergy, Mild, 08/09/08) flurbiprofen (Unverified Allergy, Mild, 07/23/08) lipase (Unverified Allergy, Mild, 05/04/10) protease (Unverified Allergy, Mild, 05/04/10) NSAIDS (Non-Steroidal Anti-Inflamma (Verified Allergy, Unknown, 10/02/06) Penicillins (Verified Allergy, Unknown, 10/02/06) Sulfa (Sulfonamide Antibiotics) (Verified Allergy, Unknown, 10/02/06) chlorhexidine (Verified Allergy, Unknown, RASH/SORES, 07/23/18) rofecoxib (Verified Allergy, Unknown, 10/02/06) tramadol (Verified Allergy, Unknown, PT CAN TAKE MORPHINE WITHOUT PROBLEM, 10/02/06) trazodone (Verified Allergy, Unknown, 10/02/06) alprazolam (Unverified Adverse Reaction, Unknown, 10/02/13) STATES MAKES HER "LOOPY" diazepam (Unverified Adverse Reaction, Unknown, 10/02/13) STATES IT MAKES HER "LOOPY" Home Medications Albuterol Sulfate 2.5 Mg/3 Ml Vial.neb, 2.5 MG NEB Q6H PRN for SHORTNESS OF BREATH, (Reported) Albuterol/Ipratropium 4 Gm Aero, 2 PUFF INH QID PRN for SHORTNESS OF BREATH, (Reported) Amitriptyline HCl 50 Mg Tablet, 50 MG PO HS, (Reported) Clopidogrel Bisulfate 75 Mg Tablet, 75 MG PO DAILY, (Reported) Diphenoxylate HCl/Atropine 1 Each Tablet, 2 TAB PO QID PRN for DIARRHEA, (Reported) Gabapentin 600 Mg Tablet, 600 MG PO TID, (Reported) Hydroxyzine HCl 25 Mg Tablet, 25 MG PO QID PRN for ITCHING, (Reported) Lansoprazole 30 Mg Capsule.dr, 30 MG PO DAILY, (Reported) Lisinopril 20 Mg Tablet, 10 MG PO BID, (Reported) TAKES 1/2 (20MG) TABLET Lorazepam 1 Mg Tablet, 1 MG PO HS, (Reported) Lorazepam 1 Mg Tablet, 0.5 MG PO DAILY, (Reported) TAKES 1/2 (1MG) TABLET Oxycodone HCl 10 Mg Tablet, 10-20 MG PO QID PRN for PAIN-SEVERE, (Reported) Promethazine HCl 25 Mg Tablet, 25 MG PO TID PRN for NAUSEA/VOMITING-2ND LINE, (Reported) Pseudoephedrine HCl 30 Mg Tablet, 30 MG PO Q4H PRN for CONGESTION, (Reported) Ranitidine HCl 150 Mg Tablet, 150 MG PO BID, (Reported) Sumatriptan Succinate 100 Mg Tablet, 100 MG PO UD PRN for MIGRAINE, (Reported) [facility] Patient Home Medication List Home Medication List Reviewed: Yes Review of Systems Constitutional: see HPI Psychiatric/Neurological: See HPI, Other (AMS) All Other Systems Reviewed Negative Unless Noted: Yes (Negative excepted noted.) Past Dqqnsjz-Rekwoz-Aemhbw Hx Patient Social History 2nd Hand Smoke Exposure: No Recent Hopitalizations: Yes (knee replacement at [facility]) Seasonal Allergies Seasonal Allergies: No Past Medical History Surgeries: Yes (knee arthroscopy, removal superficial implant, shoulder fx tx, ankle fx tx,) Hysterectomy, Joint Replacement, Orthopedic Respiratory: Yes (Chronic airway obstruction) Pneumonia, COPD Cardiac: Yes (CAD, chest pain, unspecified essential hypertension, chest wall pain) High Cholesterol, Hypertension Neurological: Yes Headaches /Migraines, TIA Reproductive Disorders: No Genitourinary: Yes (Urinary tract infection) Renal Failure Pancreatitis Musculoskeletal: Yes (herniated intervetebral disk, chronic knee pain, chronic neck pain, back pa) Osteoporosis, Fibromyalgia Endocrine: Yes (hypokalemia, hypomagnesemia) HEENT: No Cataract, Eye Injury Cancer: Yes Psychosocial: Yes (chronic narcotic dependence, drug-seeking behavior, excessive somnolence di) Anxiety Integumentary: No Blood Disorders: Yes (anemia) Physical Exam Vital Signs - First Documented 08/12/18 02:45 Temp 97.7 Pulse 80 Resp 16 B/P (MAP) 99/70 (80) Pulse Ox 96 O2 Delivery Room Air Capillary Refill : Height, Weight, BMI Height: 5'7.00" Weight: 168lbs. 7.0oz. [id number]; 24.5 BMI Method:Stated General Appearance: no apparent distress, other (obviously under the influence) HEENT: normal ENT inspection Neck: normal inspection Respiratory: no respiratory distress Cardiovascular: regular rate, rhythm Neurologic/Psychiatric: no motor/sensory deficits, alert Appearance/Memory: disheveled, impaired insight, impaired recent memory Behavior/Eye Contact: cooperative Thoughts/Hallucinations: no apparent hallucination Skin: warm/dry Progress/Results/Core Measures Results/Orders Lab Results My Orders Vital Signs/I&O Progress Progress Note : Progress Note Patient observed and allowed to sleep off the meds. Initial ECG Impression Date: Aug 12, 2018 Initial ECG Impression Time: 02:55 Initial ECG Rate: 78 Initial ECG Rhythm: Normal Sinus Initial ECG Intervals: Normal Initial ECG Impression: Nonspecific Changes (inferior infarct, old) Initial ECG Comparisson: No Previous ECG Available Diagnostic Imaging Diagonstic Imaging: CT Plain Films/CT/US/NM/MRI: c-spine (nothing acute), head (nothing acute) Departure Impression Primary Impression: AMS secondary to medication abuse Disposition: 01 HOME, SELF-CARE Condition: Stable Departure-Patient Inst. Decision time for Depature: 05:57 Referrals: LAURY MAN MD (PCP/Family) Primary Care Physician Patient Instructions: Prescription Drug Abuse (DC) Add. Discharge Instructions: RECOMMEND SOMEONE TAKE OVER CONTROL OF HER MEDS AND DEPENDENCE THEM TO HER ONLY PRESCRIBED. OLIVER CARDONA DO Aug 12, 2018 02:56
[2018-08-12 03:15] LABS: HEMATOCRIT 40 % (35-52); HEMOGLOBIN 12.9 G/DL (11.5-16.0); MEAN CORPUSCULAR HEMOGLOBIN 28 PG (25-34); WHITE BLOOD COUNT 5.5 10^3/uL (4.3-11.0)
[2018-08-12 03:16] LABS: BASOPHILS # (AUTO) 0.1 10^3/uL (0.0-0.1); BASOPHILS % (AUTO) 2 % (0-10); EOSINOPHILS # (AUTO) 0.3 10^3/uL (0.0-0.3); EOSINOPHILS % (AUTO) 6 % (0-10); LYMPHOCYTES # (AUTO) 2.4 X 10^3 (1.0-4.0); LYMPHOCYTES % (AUTO) 38 % (12-44); MEAN CORPUSCULAR HGB CONC 32 G/DL (32-36); MEAN CORPUSCULAR VOLUME 88 FL (80-99); MEAN PLATELET VOLUME 9.6 FL (7.4-10.4); MONOCYTES # (AUTO) 0.5 X 10^3 (0.0-1.0); MONOCYTES % (AUTO) 9 % (0-12); NEUTROPHILS # (AUTO) 2.5 X 10^3 (1.8-7.8); NEUTROPHILS % (AUTO) 45 % (42-75); PLATELET COUNT 230 10^3/uL (130-400); RED CELL DISTRIBUTION WIDTH 13.9 % (10.0-14.5)
--- OUTSIDE RECORDS SUMMARY | 2018-08-12 03:21 | XMS REPORT | Clinical Summary ---
Author Author [facility] Organization [facility] Address Unknown Phone Unavailable Care Team Providers Care [employer] Tm[employer] Developer Name Role Phone PCP Unavailable Allergies Not [...]
--- OUTSIDE RECORDS SUMMARY | 2018-08-12 03:21 | XMS REPORT | Clinical Summary ---
Author Author [facility] Organization [facility] Address Unknown Phone Unavailable Care Team Providers Care Retail Coverage Merchandiser Name Role Phone Molly Rossi RN Unavailable Unavailable Dino French MD Unavailable Unavailable Kelsey Collins MD Unavailable Gabbi Manley PA-C Unavailable Santiago Concepcion DO Unavailable Unavailable Edis Richard MD PCP Chinedu Holland GLASS SANDER Unavailable Source Comments Some departments are not documenting in the electronic medical record. If you d o not see the information that you expected, contact Release of Information in [facility] Information Management department at [phone] for further assistan ce in locating additional records.[facility] Allergies Comments Active Allergy Reactions Severity Noted Date Aspirin STOMACH 11/02/2009 UPSET, NAUSEA AND VOMITING Throat swelling Rlormo-Tzdggfmv-Znxbnus ANAPHYLAXIS 03/08/2009 Pregabalin SHORTNESS OF Medium 09/13/2015 [...] needed for Itching. Active nitroglycerin Take 1 Gallagher 0 (NITROLINGUAL) 400 by mouth mcg/spray translingual [...] Date: 12/06/15 Active prednisone (DELTASONE) 20 0 05/25/201 mg tablet 7 Active LEVOFLOXACIN (LEVAQUIN Take [...] Never Used Tobacco Cessation: Counseling Given: Yes Drinks/Week oz/Week Comments Alcohol Use 0 Standard drinks or equivalent 0.0 Yes Sex Assigned at Date Recorded Not on file Industry Job Start Date Occupation Not on file Not on file Not on file Travel End Travel History Travel Start No recent travel history available. Last Filed Vital Signs Reading Time Taken Comments Vital Sign 143/74 07/11/2016 1:44 PM CDT Blood Pressure 71 07/11/2016 1:44 PM CDT Pulse 37.2 C (98.9 F) 10/31/2015 2:07 PM CDT Temperature 16 01/10/2015 11:38 AM [employer] Respiratory Rate 100% 03/08/2016 10:46 AM [employer] Oxygen Saturation - - Inhaled Oxygen Concentration 64.5 kg (142 lb 3.2 oz) 07/11/2016 1:44 PM CDT Weight 170.2 cm (5' 7") 07/11/2016 1:44 PM CDT Height 22.27 07/11/2016 1:44 PM CDT Body Mass Index Plan of Treatment Health Maintenance Due Date [...] Lot Implanted Type Area Manufactur er 07/10/2025 [id number] / 1246-03-000 / [id number] Eliminator Hole Duraloc [place] Left: Hip JandJ:DEPU Hip [place] Positive Stop Y:DEPUY Implanted: Qty: 1 on 10/26/2015 by ORTHOPEDIC Kelsey Collins MD at [facility] 07/10/2020 [id number] / [id number] / [id number] Insert Acetabular 52mm 36mm +4mm Left: Hip JandJ:DEPU Neutral Altrx [place] Y:DEPUY Implanted: Qty: 1 on 10/26/2015 by ORTHOPEDIC Kelsey Collins MD at [facility] 07/10/2025 [id number] / [id number] / [id number] Shell Acetabular 52mm Hip Sector Left: Hip JandJ:DEPU Porocoat [place] Y:DEPUY Implanted: Qty: 1 on 10/26/2015 by ORTHOPEDIC Kelsey Collins MD at [facility] 03/12/2025 [id number] / [id number] / [id number] Screw Acetabular 25mm 6.5mm Dome 4 Left: Hip JandJ:DEPU Point Cut Flute Hip Y:DEPUY Implanted: Qty: 1 on 10/26/2015 by ORTHOPEDIC Kelsey Collins MD at [facility] 09/09/2025 [id number] / [id number] / [id number] Stem Femoral Cementless [place] Left: Hip JandJ:DEPU [place]oat 6 01/23 Standard Y:DEPUY Implanted: Qty: 1 on 10/26/2015 by ORTHOPEDIC Kelsey Collins MD at [facility] 07/10/2020 [id number] / [id number] / [id number] Head Femoral +1.5mm 01/23 Taper Left: Hip JandJ:DEPU 36mm Hip Cementless No Skirt Y:DEPUY Implanted: Qty: 1 on 10/26/2015 by ORTHOPEDIC Kelsey Collins MD at [facility] Results Not on filefrom Last 3 Months Advance Directives Patient Outpatient Coordinator Explanation Type Date Recorded Advance 06/01/2015 6:08 AM Directive/DPOA Date Inactivated Comments Code Status Date Activated 10/31/2015 9:55 PM Full Code 10/26/2015 10:20 PM Provider has discussed Code Status No, discussion not w/Patient or Family? necessary based on Dx 11/25/2009 4:42 PM Full Code 11/23/2009 6:47 PM
--- OUTSIDE RECORDS SUMMARY | 2018-08-12 03:22 | XMS REPORT ---
Author Author Migration, Doctor Organization [facility] Address Unknown Phone Unavailable Care Team Providers Care Wreath Inspector Name Role Phone Migration, Doctor Unavailable Unavailable PROBLEMS Type Condition ICD9-CM Code FBL13-CP Code Onset Dates Condition Status SNOMED Code Problem Loss of weight 783.21 Active 317048855 Problem Unspecified arthropathy, site unspecified 716.90 Active 139255761 Problem Lumbago 724.2 Active 325274149 Problem Depressive disorder, not elsewhere classified 311 Active 22107148 Problem Other abnormal glucose 790.29 Active 362717067 Problem Anxiety state, unspecified 300.00 Active 110157508 Problem Chronic airway obstruction, not elsewhere classified 496 Active 55544293 Problem 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 881594172 Problem Unspecified essential hypertension 401.9 Active 60830441 Problem Migraine, unspecified without mention of intractable migraine without mention of status migrainosus 346.90 Active 32272044 ALLERGIES Substance Reaction Event Type Date Status Ambien Unknown Drug Allergy May, Active Bee Venom Unknown Non Drug Allergy May, Active Hydrocodone-acetaminophen 10-325 Mg Tablet pruritis Non Drug Allergy May, Active Zoloft 50 Mg Tablet Unknown Non Drug Allergy May, Active Trazodone Unknown Drug Allergy May, Active Penicillins seizures Non Drug Allergy May, Active Sulfa(sulfonamide Antibiotics) Unknown Non Drug Allergy May, Active Nsaids (non-steroidal Anti-inflammatory Drug) stomach bleed Non Drug Allergy May, Active Vioxx passed out, breathing problems Drug Allergy May, Active Creon Unknown Drug Allergy May, Active Tramadol stomach bleed Drug Allergy May, Active Valium Unknown Drug Allergy May, Active Xanax Unknown Drug Allergy May, Active Aspirin Unknown Drug Allergy May, Active Restoril Unknown Drug Allergy May, Active ENCOUNTERS Encounter Location Date Diagnosis [facility] [place] [address] [facility]NOTE [address]] [id number] [address] Mar, [facility] [address] [facility]NOTE [address]] [id number] [place] [address] Feb, Arthropathy, unspecified M12.9 [facility] [address] [facility]NOTE [facility]] [id number] [place] [address] Feb, [facility] [id number] [address] Jan, [facility] [place] [facility] [address] [facility]NOTE [address]] [id number] [place] [address] Jan, [facility] [address] [facility]NOTE [address]] [id number] [place] [address], [place] [address] Jan, [facility] [place] [facility] [id number] [address] Oct, 2014 [facility] [id number] [place] [address], [place] [address] Oct, 2014 Lumbago 724.2 [facility] [address] [facility]NOTE 3] [id number] [place] [address] 09 Oct, 2014 [facility] [place] [facility] [id number] [address] 08 Oct, 2014 [facility] [place] [facility] [address] [id number] [address] 08 Oct, 2014 [facility] [place] [facility] [address] [id number] [address] Oct, 2014 [facility] [place] [facility] [address] [facility]NOTE 3] [id number] [place] [address] Oct, 2014 [facility] [place] [facility] [address] [facility]NOTE 3] [id number] [place] [address] Oct, 2014 [facility] [place] [facility] [address] [facility]NOTE 3] [id number] [place] [address] Sep, [facility] [place] [facility] [address] [id number] [address] Sep, [facility] [place] [address] [facility]NOTE 3] [id number] [place] [address] Aug, [facility] [place] [address] [facility]NOTE 3] [id number] [place] [address] Aug, [facility] [place] [address] [facility]NOTE 3] [id number] [place] [address] Aug, [facility] [place] [address] [facility]NOTE 3] [id number] [place] [address] Aug, [facility] [place] [address] [facility]NOTE 3] [id number] [place] [address] Aug, [facility] [place] [address] [facility]NOTE 3] [id number] [place] [address] Aug, [facility], [place] [address] [address] Jul, Unspecified arthropathy, site unspecified 716.90 [facility] [place] [address] [id number] [address] Jul, [facility] [place] [address] [id number] [address] Jul, [facility] [place] [address] [id number] [address] June, Acute bronchitis 466.0 ; Unspecified arthropathy, site unspecified 716.90 and Chronic pain disorder 338.4 [facility] [place] [address] [id number] [address] June, [facility] [place] [address] [facility]NOTE 3] [id number] [address] June, [facility] [place] [address] [id number] [address] June, [facility] [place] [address] [id number] [address] June, [facility] [place] [address] [id number] [address] 30 May, 2014 [facility] [place] [facility] [address] [id number] [place] [address] 14 May, 2014 [facility] [place] [facility] [address] [id number] [place] [address] 13 May, 2014 [facility] [place] [facility] [address] [id number] [place] [address] 30 Apr, 2014 [facility] [place] [facility] [address] [id number] [place] [address] 13 Apr, 2014 [facility] [place] [facility] [address] [id number] [place] [address] Apr, [facility] [place] [facility] [address] [id number] [place] [address] Apr, [facility] [place] [facility] [address] [id number] [place] [address] 10 Apr, 2014 [facility] [place] [facility] [address] [facility]NOTE 3] [id number] [place] [address] 10 Apr, 2014 [facility] [place] [facility] [address] [id number] [place] [address] Apr, [facility] [place] [facility] [address] [facility]NOTE 3] [id number] [place] [address] Apr, [facility] [place] [facility] [address] [id number] [place] [address] 24 Mar, 2014 [facility] [place] [facility] [address] [id number] [place] [address] 24 Mar, 2014 [facility] [place] [facility] [address] [id number] [place] [address] Mar, 2014 [facility] [place] [facility] [address] [facility]NOTE 3] [id number] [place] [address] Mar, 2014 [facility] [place] [facility] [address] [facility][NOTE 3] [id number] [place] [address] Mar, 2014 [facility] [place] [facility] [address] [id number] [place] [address] 17 Mar, 2014 [facility] [place] [facility] [address] [id number] [place] [address] Mar, 2014 [facility] [place] [facility] [address] [id number] [place] [address] Mar, 2014 [facility] [place] [facility] [address] [id number] [place] [address] Mar, 2014 [facility] [place] [facility] [address] [id number] [place] [address] Mar, 2014 [facility] [place] [facility] [address] [id number] [place] [address] Mar, 2014 [facility] [place] [facility] [address] [id number] [place] [address] 10 Mar, 2014 [facility] [place] [facility] [address] [id number] [place] [address] Mar, 2014 [facility] [place] [facility] [address] [id number] [place] [address] 05 Mar, 2014 [facility] [place] [facility] [address] [facility][NOTE 3] [id number] [place] [address] Mar, [facility] [place] [facility] [address] [id number] [place] [address] Feb, [facility] [place] [facility] [address] [id number] [place] [address] Feb, [facility] [place] [facility] [address] [id number] [place] [address] Feb, [facility] [place] [facility] [address] [id number] [place] [address] Feb, [facility] [place] [facility] [address] [facility]NOTE 3] [id number] [place] [address] Feb, [facility] [place] [facility] [address] [id number] [place] [address] Feb, [facility] [address] [id number] [place] [address] Feb, [facility] [place] [facility] [address] [id number] [place] [address] Feb, [facility] [address] [id number] [place] [address] Feb, [facility] [place] [facility] [address] [id number] [place] [address] Feb, [facility] [address] [id number] [place] [address] Feb, [facility] [address] [id number] [place] [address] Jan, [facility] [place] [facility] [address] [id number] [place] [address] Jan, [facility] [address] [id number] [place] [address] Jan, [facility] [place] [facility] [address] [id number] [place] [address] Jan, [facility] [place] [facility] [address] [id number] [place] [address] Jan, [facility] [place] [facility] [address] [id number] [place] [address] Jan, [facility] [place] [facility] [address] [id number] [place] [address] Jan, [facility] [place] [facility] [address] [id number] [place] [address] Jan, [facility] [place] [facility] [address] [id number] [place] [address] Jan, [facility] [place] [facility] [address] [id number] [place] [address] Jan, [facility] [place] [facility] [address] [id number] [place] [address] Jan, [facility] [place] [facility] [address] [id number] [place] [address] Jan, [facility] [place] [facility] [address] [id number] [place] [address] Jan, [facility] [place] [facility] [address] [id number] [place] [address] Jan, [facility] [place] [facility] [address] [id number] [place] [address] Jan, [facility] [place] [facility] [address] [id number] [place] [address] Dec, [facility] [place] [facility] [address] [id number] [place] [address] Dec, [facility] [place] [facility] [address] [id number] [place] [address] Dec, [facility] [place] [facility] [address] [id number] [place] [address] Dec, [facility] [place] [facility] [address] [id number] [place] [address] Dec, [facility] [place] [facility] [address] [id number] [address] Dec, [facility] [place] [facility] [address] [id number] [address] Dec, [facility] [place] [facility] [address] [id number] [place] [address] Dec, [facility] [place] [facility] [address] [id number] [address] Dec, [facility] [place] [facility] [address] [id number] [place] [address] Dec, [facility] [place] [facility] [address] [id number] [place] [address] Dec, [facility] [place] [facility] [address] [id number] [place] [address] Dec, [facility] [place] [facility] [address] [id number] [place] [address] Dec, [facility] [place] [facility] [address] [id number] [place] [address] Dec, [facility] [place] [facility] [address] [id number] [place] [address] Dec, [facility] [place] [facility] [address] [id number] [place] [address] Dec, [facility] [place] [facility] [address] [id number] [place] [address] Dec, [facility] [place] [facility] [address] [id number] [place] [address] Dec, [facility] [place] [facility] [address] [id number] [place] [address] Dec, [facility] [place] [facility] [address] [id number] [place] [address] Dec, [facility] [place] [facility] [address] [facility]] [id number] [place] [address] Nov, [facility] [place] [facility] [address] [id number] [place] [address] Nov, [facility] [place] [facility] [address] [id number] [place] [address] Nov, [facility] [place] [facility] [address] [id number] [place] [address] Nov, [facility] [place] [facility] [address] [id number] [place] [address] Nov, [facility] [place] [facility] [address] [id number] [place] [address] Nov, [facility] [place] [facility] [address] [id number] [place] [address] 15 Nov, 2013 [facility] [place] [facility] [address] [id number] [place] [address] 15 Nov, 2013 [facility] [place] [facility] [address] [id number] [place] [address] 13 Nov, 2013 [facility] [place] [facility] [address] [id number] [place] [address] Nov, [facility] [place] [facility] [address] [id number] [place] [address] 08 Nov, 2013 [facility] [place] [facility] [address] [id number] [place] [address] 08 Nov, 2013 [facility] [place] [facility] [address] [id number] [place] [address] 22 Oct, 2013 [facility] [place] [facility] [address] [id number] [place] [address] 22 Oct, 2013 [facility] [place] [facility] [address] [id number] [place] [address] 19 Oct, 2013 [facility] [place] [facility] [address] [id number] [place] [address] 19 Oct, 2013 [facility] [place] [facility] [address] [id number] [place] [address] 17 Oct, 2013 [facility] [place] [facility] [address] [id number] [place] [address] 17 Sep, 2013 [facility] [place] [facility] [address] [id number] [place] [address] 16 Sep, 2013 [facility] [place] [facility] [address] [id number] [place] [address] 16 Sep, 2013 [facility] [place] [facility] [address] [id number] [place] [address] 09 Sep, 2013 [facility] [place] [facility] [address] [id number] [place] [address] Oct, [facility] [place] [facility] [address] [id number] [place] [address] Sep, [facility] [place] [facility] [address] [id number] [place] [address] Sep, [facility] [place] [facility] [address] [id number] [place] [address] Sep, [facility] [place] [facility] [address] [id number] [place] [address] Sep, [facility] [place] [facility] [address] [id number] [place] [address] Sep, [facility] [place] [facility] [address] [id number] [place] [address] Sep, [facility] [place] [facility] [address] [id number] [place] [address] Sep, [facility] [place] [facility] [address] [id number] [place] [address] Sep, [facility] [place] [facility] [address] [id number] [place] [address] Sep, [facility] [place] [facility] [address] [id number] [place] [address] Sep, [facility] [place] [facility] [address] [id number] [place] [address] Sep, [facility] [place] [facility] [address] [id number] [place] [address] Sep, [facility] [place] [facility] [address] [id number] [place] [address] Sep, [facility] [place] [facility] [address] [id number] [place] [address] Sep, [facility] [place] [facility] [address] [id number] [place] [address] Aug, [facility] [place] [facility] [address] [id number] [place] [address] Aug, [facility] [place] [facility] [address] [id number] [place] [address] Aug, [facility] [place] [facility] [address] [id number] [place] [address] Aug, [facility] [place] [facility] [address] [id number] [place] [address] Aug, [facility] [place] [facility] [address] [id number] [place] [address] Aug, [facility] [place] [facility] [address] [id number] [place] [address] Aug, [facility] [place] [facility] [address] [id number] [place] [address] Aug, [facility] [place] [facility] [address] [id number] [place] [address] Aug, [facility] [place] [facility] [address] [id number] [place] [address] Aug, [facility] [place] [facility] [address] [id number] [place] [address] Aug, [facility] [place] [facility] [address] [id number] [place] [address] Jul, [facility] [place] [facility] [address] [id number] [place] [address] Jul, [facility] [place] [facility] [address] [id number] [place] [address] Jul, [facility] [place] [facility] [address] [id number] [place] [address] Jul, [facility] [place] [facility] [address] [id number] [place] [address] Jul, [facility] [place] [facility] [address] [id number] [place] [address] Jul, [facility] [place] [facility] [address] [id number] [place] [address] Jul, [facility] [place] [facility] [address] [id number] [place] [address] Jul, [facility] [place] [facility] [address] [id number] [place] [address] Jul, [facility] [place] [facility] [address] [id number] [place] [address] Jul, [facility] [place] [facility] [address] [id number] [place] [address] June, [facility] [place] [facility] [address] [id number] [place] [address] June, [facility] [place] [facility] [address] [id number] [place] [address] June, [facility] [place] [facility] [address] [id number] [place] [address] June, [facility] [place] [facility] [address] [id number] [place] [address] June, [facility] [place] [facility] [address] [id number] [place] [address] June, [facility] [place] [facility] [address] [id number] [place] [address] June, [facility] [place] [facility] [address] [id number] [place] [address] June, [facility] [place] [facility] [address] [id number] [place] [address] June, [facility] [place] [facility] [address] [id number] [place] [address] June, [facility] [place] [facility] [address] [id number] [place] [address] June, [facility] [place] [facility] [address] [id number] [place] [address] June, [facility] [address] [id number] [place] [address] June, [facility] [place] [facility] [address] [id number] [place] [address] June, [facility] [place] [facility] [address] [id number] [place] [address] June, [facility] [place] [facility] [address] [id number] [place] [address] June, [facility] [place] [facility] [address] [id number] [place] [address] June, [facility] [place] [facility] [address] [id number] [place] [address] May, [facility] [place] [facility] [address] [id number] [place] [address] May, [facility] [place] [facility] [address] [id number] [place] [address] May, [facility] [place] [facility] [address] [id number] [place] [address] May, [facility] [place] [facility] [address] [id number] [place] [address] May, [facility] [place] [facility] [address] [id number] [place] [address] May, [facility] [place] [facility] [address] [id number] [place] [address] May, [facility] [place] [facility] [address] [id number] [place] [address] May, [facility] [place] [facility] [address] [id number] [place] [address] May, [facility] [place] [facility] [address] [id number] [place] [address] May, [facility] [place] [facility] [address] [id number] [place] [address] Apr, [facility] [place] [facility] [address] [id number] [place] [address] Apr, [facility] [place] [facility] [address] [id number] [place] [address] Apr, [facility] [place] [facility] [address] [id number] [place] [address] Apr, [facility] [place] [facility] [address] [id number] [place] [address] Apr, [facility] [place] [facility] [address] [id number] [place] [address] Apr, [facility] [place] [facility] [address] [id number] [place] [address] Apr, [facility] [place] [facility] [address] [id number] [place] [address] Apr, [facility] [place] [facility] [address] [id number] [place] [address] Apr, [facility] [place] [facility] [address] [id number] [place] [address] Apr, [facility] [place] [facility] [address] [id number] [place] [address] Mar, [facility] [place] [facility] [address] [id number] [place] [address] Mar, [facility] [place] [facility] [address] [id number] [place] [address] Mar, [facility] [place] [facility] [address] [id number] [place] [address] Mar, [facility] [place] [facility] [address] [id number] [place] [address] Mar, [facility] [place] [facility] [address] [id number] [place] [address] 24 Mar, 2013 [facility] [place] [facility] [address] [id number] [place] [address] Mar, [facility] [place] [facility] [address] [id number] [place] [address] Mar, [facility] [place] [facility] [address] [id number] [place] [address] Mar, [facility] [place] [facility] [address] [id number] [place] [address] Mar, [facility] [place] [facility] [address] [id number] [place] [address] Mar, [facility] [place] [facility] [address] [id number] [place] [address] Mar, [facility] [place] [facility] [address] [id number] [place] [address] Mar, [facility] [place] [facility] [address] [id number] [place] [address] Feb, [facility] [place] [facility] [address] [id number] [place] [address] Feb, [facility] [place] [facility] [address] [id number] [place] [address] Feb, [facility] [place] [facility] [address] [id number] [place] [address] Feb, [facility] [place] [facility] [address] [id number] [address] Feb, [facility] [place] [facility] [address] [id number] [place] [address] Feb, [facility] [place] [facility] [address] [id number] [place] [address] Feb, [facility] [place] [facility] [address] [id number] [address] Feb, [facility] [place] [facility] [address] [id number] [place] [address] Feb, [facility] [address] [id number] [place] [address] Feb, [facility] [place] [facility] [address] [id number] [place] [address] 30 Jan, 2013 [facility] [place] [facility] [address] [id number] [place] [address] Jan, [facility] [place] [facility] [address] [id number] [place] [address] Jan, [facility] [place] [facility] [address] [id number] [place] [address] Jan, [facility] [place] [facility] [address] [id number] [place] [address] Jan, [facility] [place] [facility] [address] [id number] [place] [address] Jan, [facility] [address] [id number] [place] [address] Jan, [facility] [place] [facility] [address] [id number] [place] [address] Jan, [facility] [place] [facility] [address] [id number] [place] [address] 16 Jan, 2013 [facility] [place] [facility] [address] [id number] [place] [address] 16 Jan, 2013 [facility] [place] [facility] [address] [id number] [place] [address] Jan, [facility] [place] [facility] [address] [id number] [place] [address] Jan, [facility] [place] [facility] [address] [id number] [place] [address] Jan, [facility] [place] [facility] [address] [id number] [address] Jan, [facility] [place] [facility] [address] [id number] [place] [address] Jan, [facility] [place] [facility] [address] [id number] [place] [address] Jan, [facility] [place] [facility] [address] [id number] [place] [address] Dec, [facility] [place] [facility] [address] [id number] [place] [address] Dec, [facility] [place] [facility] [address] [id number] [place] [address] Dec, [facility] [place] [facility] [address] [id number] [place] [address] Dec, [facility] [place] [facility] [address] [id number] [place] [address] Dec, [facility] [place] [facility] [address] [id number] [place] [address] Dec, [facility] [place] [facility] [address] [id number] [place] [address] Dec, [facility] [place] [facility] [address] [id number] [place] [address] Dec, [facility] [place] [facility] [address] [id number] [place] [address] Dec, [facility] [place] [facility] [address] [id number] [place] [address] Dec, [facility] [place] [facility] [address] [id number] [place] [address] Nov, [facility] [place] [facility] [address] [id number] [place] [address] Nov, [facility] [place] [facility] [address] [id number] [place] [address] Nov, [facility] [place] [facility] [address] [id number] [place] [address] 21 Nov, 2012 [facility] [address] [id number] [place] [address] 18 Nov, 2012 [facility] [place] [facility] [address] [id number] [place] [address] 18 Nov, 2012 [facility] [address] [id number] [place] [address] 14 Nov, 2012 [facility] [address] [id number] [place] [address] 14 Nov, 2012 [facility] [address] [id number] [place] [address] 09 Nov, 2012 [facility] [address] [id number] [place] [address] 09 Nov, 2012 [facility] [address] [id number] [place] [address] 07 Nov, 2012 [facility] [address] [id number] [place] [address] 05 Nov, 2012 [facility] [place] [facility] [address] [id number] [place] [address] 20 Oct, 2012 [facility] [address] [id number] [place] [address] 20 Sep, 2012 [facility] [place] [facility] [address] [id number] [place] [address] 19 Sep, 2012 [facility] [place] [facility] [address] [id number] [place] [address] 18 Sep, 2012 [facility] [place] [facility] [address] [id number] [place] [address] 13 Sep, 2012 [facility] [place] [facility] [address] [id number] [place] [address] 05 Sep, 2012 [facility] [place] [facility] [address] [id number] [place] [address] Oct, [facility] [place] [facility] [address] [id number] [place] [address] Sep, [facility] [place] [facility] [address] [id number] [place] [address] Sep, [facility] [place] [facility] [address] [id number] [place] [address] Sep, [facility] [place] [facility] [address] [id number] [place] [address] Sep, [facility] [place] [facility] [address] [id number] [place] [address] Sep, [facility] [place] [facility] [address] [id number] [place] [address] Sep, [facility] [place] [facility] [address] [id number] [place] [address] Sep, [facility] [place] [facility] [address] [id number] [place] [address] Aug, [facility] [place] [facility] [address] [id number] [place] [address] Aug, [facility] [place] [facility] [address] [id number] [place] [address] Aug, [facility] [place] [facility] [address] [id number] [place] [address] Aug, [facility] [place] [facility] [address] [id number] [place] [address] Aug, [facility] [place] [facility] [address] [id number] [place] [address] Aug, [facility] [place] [facility] [address] [id number] [place] [address] Aug, [facility] [place] [facility] [address] [id number] [place] [address] Aug, [facility] [place] [facility] [address] [id number] [place] [address] Aug, [facility] [address] [id number] [place] [address] Jul, [facility] [place] [facility] [address] [id number] [place] [address] Jul, [facility] [place] [facility] [address] [id number] [place] [address] Jul, [facility] [place] [facility] [address] [id number] [place] [address] 14 Jul, 2012 [facility] [address] [id number] [place] [address] Jul, [facility] [place] [facility] [address] [id number] [place] [address] Jul, [facility] [address] [id number] [place] [address] Jul, [facility] [place] [facility] [address] [id number] [place] [address] June, [facility] [address] [id number] [place] [address] June, [facility] [place] [facility] [address] [id number] [place] [address] June, [facility] [place] [facility] [address] [id number] [place] [address] June, [facility] [place] [facility] [address] [id number] [place] [address] June, [facility] [place] [facility] [address] [id number] [place] [address] June, [facility] [place] [facility] [address] [id number] [place] [address] June, [facility] [place] [facility] [address] [id number] [place] [address] June, [facility] [place] [facility] [address] [id number] [place] [address] 26 May, 2012 [facility] [address] [id number] [place] [address] 25 May, 2012 [facility] [place] [facility] [address] [id number] [place] [address] 16 May, 2012 [facility] [address] [id number] [place] [address] 15 May, 2012 [facility] [address] [id number] [place] [address] 08 May, 2012 [facility] [address] [id number] [place] [address] 05 May, 2012 [facility] [address] [id number] [place] [address] 04 May, 2012 [facility] [address] [id number] [place] [address] May, [facility] [address] [id number] [place] [address] May, [facility] [address] [id number] [place] [address] May, [facility] [address] [id number] [place] [address] 21 Apr, 2012 [facility] [address] [id number] [place] [address] 19 Apr, 2012 [facility] [address] [id number] [place] [address] 18 Apr, 2012 [facility] [place] [facility] [address] [id number] [place] [address] 15 Apr, 2012 [facility] [place] [facility] [address] [id number] [place] [address] 13 Apr, 2012 [facility] [place] [facility] [address] [id number] [place] [address] 05 Apr, 2012 [facility] [address] [id number] [place] [address] 04 Apr, 2012 [facility] [place] [facility] [address] [id number] [place] [address] 28 Mar, 2012 [facility] [address] [facility]] [id number] [place] [address] Mar, [facility] [place] [facility] [address] [id number] [place] [address] Mar, [facility] [place] [facility] [address] [id number] [place] [address] Mar, [facility] [place] [facility] [address] [facility]NOTE 3] [id number] [place] [address] 22 Mar, 2012 [facility] [address] [facility]NOTE 3] [id number] [place] [address] 07 Mar, 2012 [facility] [place] [facility] [address] [id number] [place] [address] 06 Mar, 2012 [facility] [place] [facility] [address] [facility]NOTE 3] [id number] [place] [address] 05 Mar, 2012 [facility] [place] [facility] [address] [facility]NOTE 3] [id number] [place] [address] 04 Mar, 2012 [facility] [place] [facility] [address] [facility]NOTE 3] [id number] [place] [address] 31 Feb, 2012 [facility] [place] [facility] [address] [facility]NOTE 3] [id number] [place] [address] 18 Feb, 2012 [facility] [place] [facility] [address] [id number] [place] [address] 18 Feb, 2012 [facility] [place] [facility] [address] [facility]] [id number] [place] [address] 17 Feb, 2012 [facility] [place] [facility] [address] [facility]NOTE 3] [id number] [place] [address] 14 Feb, 2012 [facility] [place] [facility] [address] [id number] [place] [address] Feb, [facility] [place] [facility] [address] [id number] [place] [address] Feb, [facility] [place] [facility] [address] [id number] [place] [address] Jan, [facility] [place] [facility] [address] [id number] [place] [address] 31 Jan, 2012 [facility] [place] [facility] [address] [id number] [place] [address] Jan, [facility] [place] [facility] [address] [id number] [place] [address] Jan, [facility] [place] [facility] [address] [id number] [place] [address] Jan, [facility] [place] [facility] [address] [id number] [place] [address] Jan, [facility] [place] [facility] [address] [id number] [place] [address] 14 Jan, 2012 [facility] [place] [facility] [address] [id number] [place] [address] Jan, [facility] [place] [facility] [address] [id number] [place] [address] Jan, [facility] [place] [facility] [address] [id number] [place] [address] 04 Jan, 2012 [facility] [place] [facility] [address] [id number] [place] [address] 04 Jan, 2012 [facility] [place] [facility] [address] [id number] [place] [address] Jan, [facility] [place] [facility] [address] [id number] [place] [address] Jan, [facility] [place] [facility] [address] [id number] [place] [address] Dec, [facility] [place] [facility] [address] [id number] [place] [address] Dec, [facility] [place] [facility] [address] [id number] [place] [address] Dec, [facility] [place] [facility] [address] [facility] 3] [id number] [place] [address] Dec, [facility] [place] [facility] [address] [id number] [place] [address] Dec, [facility] [place] [facility] [address] [id number] [place] [address] Dec, [facility] [place] [facility] [address] [id number] [place] [address] Dec, [facility] [place] [facility] [address] [facility]NOTE 3] [id number] [place] [address] Dec, [facility] [place] [facility] [address] [id number] [place] [address] Dec, [facility] [place] [facility] [address] [id number] [place] [address] Dec, [facility] [place] [facility] [address] [facility]NOTE 3] [id number] [place] [address] Dec, [facility] [place] [facility] [address] [id number] [place] [address] Dec, [facility] [place] [facility] [address] [id number] [place] [address] Dec, [facility] [place] [facility] [address] [id number] [place] [address] Dec, [facility] [place] [facility] [address] [id number] [place] [address] Nov, [facility] [place] [facility] [address] [facility]NOTE 3] [id number] [place] [address] Nov, [facility] [place] [facility] [address] [id number] [place] [address] 25 Nov, 2011 [facility] [place] [facility] [address] [id number] [place] [address] 25 Nov, 2011 [facility] [place] [facility] [address] [id number] [place] [address] Nov, [facility] [place] [facility] [address] [id number] [place] [address] 11 Nov, 2011 [facility] [place] [facility] [address] [id number] [place] [address] 10 Nov, 2011 [facility] [place] [facility] [address] [id number] [place] [address] 10 Nov, 2011 [facility] [place] [facility] [address] [id number] [place] [address] 09 Nov, 2011 [facility] [place] [facility] [address] [facility]NOTE 3] [id number] [place] [address] 08 Nov, 2011 [facility] [place] [facility] [address] [id number] [place] [address] 05 Nov, 2011 [facility] [place] [facility] [address] [id number] [place] [address] 04 Nov, 2011 [facility] [place] [facility] [address] [facility]NOTE 3] [id number] [place] [address] 02 Nov, 2011 [facility] [place] [facility] [address] [id number] [place] [address] 25 Sep, 2011 [facility] [place] [facility] [address] [id number] [place] [address] 25 Sep, 2011 [facility] [place] [facility] [address] [id number] [place] [address] 24 Sep, 2011 [facility] [place] [facility] [address] [facility]NOTE 3] [id number] [place] [address] 17 Sep, 2011 [facility] [place] [facility] [address] [id number] [place] [address] 14 Oct, 2011 [facility] [place] [address] [facility]NOTE 3] [id number] [place] [address] Oct, [facility] [place] [address] [id number] [address] Oct, [facility] [place] [address] [facility]NOTE 3] [id number] [place] [address] Sep, [facility] [place] [id number] [address] Sep, [facility] [place] [address] [id number] [address] Sep, [facility] [place] [id number] [address] Sep, [facility] [place] [address] [id number] [address] Aug, IMMUNIZATIONS No Known Immunizations SOCIAL HISTORY Never Assessed REASON FOR VISIT [facility] PLAN OF CARE VITAL SIGNS MEDICATIONS Medication Instructions Dosage Frequency Start Date End Date Duration Status Promethazine-Codeine 6.25-10 mg/5 mL 10 mL by Oral route every 6 hours PRN cough Jul, Active Fioricet 50-325-40 mg 1-2 tablet by Oral route every 6 hours PRN not to exceed 6 tablets/day, 10/week June, Active Doxycycline Hyclate 100 mg take 1 tablet (100 mg) by oral route 2 times per day for 7 days Oct, Active PredniSONE 20 mg 2 tablet by Oral route 1 time per day for 5 day(s) Oct, Active Omnicef 300 mg 2 capsule by Oral route 1 time per day for 7 day(s) Oct, Active Keflex 500 mg 1 capsule by Oral route 4 times per day for 7 days Dec, Active Percocet 10-325 mg 1 Tablet by Oral route every 6 hours Nov, Active Diflucan 100 mg take 1 tablet by Oral route 2 times per day for 7 days Oct, Active Albuterol Sulfate 0.63 mg/3 mL 3 Ml by Inhalation route 4 times per day Oct, Active MS Contin 30 mg 1 tablet by Oral route every 12 hours Apr, Active Imitrex 100 mg 1 tablet by Oral route 1 time per day PRN (Script must last one month) Feb, Active Levaquin 500 mg take 1 tablet (500 mg) by oral route once daily for 5 day Oct, Active Ativan 0.5 mg 1 tablet by Oral route 2 times per day PRN each fill must last 30 days Apr, Active Lomotil 2.5-0.025 mg 2 tablet by Oral route 4 times per day PRN Feb, Active RESULTS No Results PROCEDURES No Known procedures [...] ulcerated Hiatal hernia 2008 Surgical History Appendectomy 1962 Surgical History Hysterectomy endometrial CA 1970 Surgical [...]
--- OUTSIDE RECORDS SUMMARY | 2018-08-12 03:39 | XMS REPORT | Continuity of Care Document ---
Author Organization Unknown Address Unknown Allergies Active Description Code Type Severity Reaction Onset Reported/Identified Relationship to Patient Clinical Status Yes NSAIDS (Non-Steroidal Anti-Inflamma [id number] Drug Allergy Unknown N/A 10/02/2006 Yes Penicillins [id number] Drug Allergy Unknown N/A 10/02/2006 Yes rofecoxib [id number] Drug Allergy Unknown N/A 10/02/2006 Yes Sulfa (Sulfonamide Antibiotics) [id number] Drug Allergy Unknown N/A 10/02/2006 Yes tramadol [id number] Drug Allergy Unknown PT CAN TAKE MOR 10/02/2006 Yes trazodone [id number] Drug Allergy Unknown N/A 10/02/2006 Yes flurbiprofen [id number] Drug Allergy Mild N/A 07/23/2008 Yes aspirin [id number] Drug Allergy Mild N/A 08/09/2008 Yes amylase [id number] Drug Allergy Mild N/A 05/04/2010 Yes lipase [id number] Drug Allergy Mild N/A 05/04/2010 Yes protease [id number] Drug Allergy Mild N/A 05/04/2010 Yes Ambien [...] mg tablet Drug Allergy 01/14/2012 Yes alprazolam [id number] Drug Allergy Unknown N/A 10/02/2013 Yes diazepam [id number] Drug Allergy Unknown N/A 10/02/2013 Yes Zoloft 50 mg tablet Drug Allergy N/A N/A 11/01/2013 Yes chlorhexidine [id number] Drug Allergy Unknown RASH/SORES 07/23/2018 Medications There is no data. Problems Date [...] SPECIFIED DISORDERS OF FUNCTION OF STOMACH 09/16/2011 ELY RIVERA APRN R 716.90 UNSPECIFIED ARTHROPATHY SITE UNSPECIFIED 09/16/2011 LAURY MAN MD CHRONIC AIRWAY OBSTRUCTION NOT ELSEWHERE CLASSIFIED 09/16/2011 LAURY MAN MD 536.8 DYSPEPSIA AND OTHER SPECIFIED DISORDERS OF FUNCTION OF STOMACH 09/16/2011 LAURY MAN MD.90 UNSPECIFIED ARTHROPATHY SITE UNSPECIFIED 09/16/2011 LAURY MAN MD CHRONIC AIRWAY OBSTRUCTION NOT ELSEWHERE CLASSIFIED 09/16/2011 LAURY MAN MD6.8 DYSPEPSIA AND OTHER SPECIFIED DISORDERS OF FUNCTION OF STOMACH 09/16/2011 LAURY MAN MD90 UNSPECIFIED ARTHROPATHY SITE UNSPECIFIED 09/16/2011 LAURY MAN MD CHRONIC AIRWAY OBSTRUCTION NOT ELSEWHERE CLASSIFIED 09/16/2011 LAURY MAN MD 536.8 DYSPEPSIA AND OTHER SPECIFIED DISORDERS OF FUNCTION OF STOMACH 09/16/2011 LAURY MAN MD 71Marlyn.90 UNSPECIFIED ARTHROPATHY SITE UNSPECIFIED 09/16/2011 496 CHRONIC [...] MAN MD90 UNSPECIFIED ARTHROPATHY SITE UNSPECIFIED 09/16/2011 WHITE DDS, MONICA Deras 496 CHRONIC AIRWAY OBSTRUCTION NOT ELSEWHERE CLASSIFIED 09/16/2011 WHITE DDS, MONICA Deras 536.8 DYSPEPSIA AND OTHER SPECIFIED DISORDERS OF [...] OBSTRUCTION NOT ELSEWHERE CLASSIFIED 09/16/2011 LAURY MAN MD.Memo DYSPEPSIA AND OTHER SPECIFIED DISORDERS OF FUNCTION [...] FUNCTION OF STOMACH 09/16/2011 LAURY MAN MD 71Mralyn.90 UNSPECIFIED ARTHROPATHY SITE UNSPECIFIED 09/16/2011 LAURY MAN [...] LAURY MAN MD90 UNSPECIFIED ARTHROPATHY SITE UNSPECIFIED 10/17/2011 LUARY MAN MD2.7 SPONTANEOUS ECCHYMOSES 10/17/2011 LAURY MAN MD2.7 SPONTANEOUS ECCHYMOSES 10/17/2011 LAURY MAN MD2.7 SPONTANEOUS ECCHYMOSES 10/17/2011 ELY RIVERA APRN 782.7 SPONTANEOUS ECCHYMOSES 10/17/2011 LAURY MAN MD2.7 SPONTANEOUS ECCHYMOSES 10/17/2011 LAURY MAN MD2.7 SPONTANEOUS ECCHYMOSES 10/17/2011 LAURY MAN MD2.7 SPONTANEOUS ECCHYMOSES 10/17/2011 782.7 SPONTANEOUS ECCHYMOSES 10/17/2011 782.7 SPONTANEOUS ECCHYMOSES 10/17/2011 LAURY MAN MD2.7 SPONTANEOUS ECCHYMOSES 10/17/2011 DONOVAN NIELSEN, LAURY Perera2.7 SPONTANEOUS ECCHYMOSES 10/17/2011 MONICA AVERY DDS 782.7 SPONTANEOUS ECCHYMOSES 10/17/2011 DONOVAN NIELSEN, LAURY Waller.7 [...] DONOVAN NIELSEN, LAURY Waller.7 SPONTANEOUS ECCHYMOSES 11/14/2011 LAURY MAN MD 486 Pneumonia Organism Unspecified 11/14/2011 DONOVAN NIELSEN, [...] NIELSEN, LAURY 401.9 UNSPECIFIED ESSENTIAL HYPERTENSION 01/14/2012 WHITE DDS, MONICA Deras 401.9 UNSPECIFIED ESSENTIAL HYPERTENSION 01/14/2012 DONOVAN NIELSEN, [...] NIELSEN, LAURY 401.9 UNSPECIFIED ESSENTIAL HYPERTENSION 02/21/2012 DONOVAN NIELSEN, LAURY 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 02/21/2012 [...] ISCHEMIC CEREBROVASCULAR DISEASE 04/08/2012 ELY RIVERA APRN R 786.2 cough 04/08/2012 LAURY MAN MD 786.2 Cough 04/08/2012 LAURY MAN MD 786.2 Cough 04/08/2012 LAURY MAN MD 786.2 Cough 04/08/2012 786.2 Cough 04/08/2012 786.2 Cough 04/08/2012 DONOVAN NIELSEN, LAURY 786.2 Cough 04/08/2012 DONOVAN NIELSEN, LAURY 786.2 Cough 04/08/2012 MONICA AVERY DDS 786.2 Cough 04/08/2012 DONOVAN NIELSEN, LAURY 786.2 [...] LATE EFFECTS OF CEREBROVASCULAR DISEASE 04/14/2012 LAURY MNA MD 438.9 UNSPECIFIED LATE EFFECTS OF CEREBROVASCULAR [...] 461.8 OTHER ACUTE SINUSITIS 10/15/2012 LAURY MAN MD9.81 VENOUS (PERIPHERAL) INSUFFICIENCY UNSPECIFIED 10/15/2012 LAURY MAN MD 461.8 OTHER ACUTE SINUSITIS 10/15/2012 LAURY MAN MD 459.81 VENOUS (PERIPHERAL) INSUFFICIENCY UNSPECIFIED 10/15/2012 LAURY MAN MD 461.8 OTHER ACUTE SINUSITIS 10/15/2012 LAURY MAN MD 459.81 VENOUS (PERIPHERAL) INSUFFICIENCY UNSPECIFIED 10/15/2012 DONOVAN NIELSEN, LAURY 461.8 OTHER ACUTE SINUSITIS 10/15/2012 DONOVAN NIELSEN, LAURY 459.81 VENOUS (PERIPHERAL) INSUFFICIENCY UNSPECIFIED 10/15/2012 DOONVAN NIELSEN, LAURY 461.8 OTHER ACUTE SINUSITIS 10/15/2012 [...] NIELSEN, LAURY 461.8 OTHER ACUTE SINUSITIS 11/30/2012 LAURY MAN MD 346.90 MIGRAINE UNSPECIFIED WITHOUT MENTION OF INTRACTABLE MIGRAINE WITHOUT MENTION OF STATUS MIGRAINOSUS 11/30/2012 WHITE DDS, MONICA Augusta 346.90 MIGRAINE UNSPECIFIED WITHOUT MENTION OF INTRACTABLE [...] 06/25/2013 DONOVAN NIELSEN, LAURY 784.0 HEADACHE 06/25/2013 LAURY MAN MD 790.29 OTHER ABNORMAL GLUCOSE 08/05/2013 DONOVAN NIELSEN, [...] 311 DEPRESSIVE DISORDER NOT ELSEWHERE CLASSIFIED 10/19/2013 LUARY MAN MD 311 DEPRESSIVE DISORDER NOT ELSEWHERE [...] V68.1 ISSUE OF REPEAT PRESCRIPTIONS 08/22/2014 CHAMP OMNTES 715.95 OSTEOARTHROS NOS-PELVIS 08/22/2014 CHAMP MONTES 789.09 ABDOMINAL PAIN, OTHER SPECIFIED SITE 08/22/2014 YAJAIRA TILLEY 297.1 DELUSIONAL DISORDER 08/22/2014 YAJAIRA TILLEY 338.4 CHRONIC PAIN SYSNDROME 08/22/2014 YAJAIRA TILLEY 719.45 PAIN IN JOINT INVOLVING PELVIC REGION AND THIGH 09/20/2014 CHAMP MONTES 715.95 OSTEOARTHROS NOS-PELVIS 09/20/2014 CHAMP MONTES 722.52 LUMB/LUMBOSAC DISC DEGEN 09/20/2014 CHAMP MONTES V68.1 ISSUE OF REPEAT PRESCRIPTIONS 10/21/2014 [...] Other intervertebral disc degeneration, lumbar region 03/02/2015 CHAMP MONTES Z76.0 Encounter for issue of [...] Other intervertebral disc degeneration, lumbar region 08/25/2015 YAJAIRA TILLEY F S62.001D Unspecified fracture [...] drug level monitoring 09/22/2015 CHAMP MONTES Z79.891 long term (current) use of opiate analgesic 10/24/2015 CHAMP MONTES I10 Essential (primary) hypertension 10/24/2015 CHAMP MONTES M16.12 Unilateral primary osteoarthritis, left hip 10/24/2015 CHAMP MONTES M51.36 Other intervertebral disc degeneration, lumbar region 11/15/2015 CHAMP MONTES M16.12 Unilateral primary osteoarthritis, left hip 11/15/2015 CHAMP MONTES Z76.0 Encounter for issue of repeat prescription 11/15/2015 CHAMP MONTES Z96.642 Presence of left artificial hip joint 12/13/2015 CHAMP MONTES M16.12 Unilateral primary osteoarthritis, left [...] CHAMP MONTES I10 Essential (primary) hypertension 03/15/2016 CHMAP MONTES M25.562 Pain in left knee 03/15/2016 [...] CHAMP MONTES R00.1 Bradycardia, unspecified 05/10/2016 CHAMP MONTES J06.9 Acute upper respiratory infection, unspecified 05/10/2016 CHAMP MONTES J44.9 Chronic obstructive pulmonary disease, unspecified 05/10/2016 CHAMP MONTES M51.36 Other intervertebral disc degeneration, lumbar region 05/10/2016 CHAMP MONTES R00.2 Palpitations 06/10/2016 CHAPM MONTES H69.91 Unspecified Eustachian tube disorder, right [...] Encounter for issue of repeat prescription 11/06/2016 CHMAP MONTES Z51.81 Encounter for therapeutic drug level monitoring 11/06/2016 CHAMP MONTES Z79.891 USP (current) use of opiate analgesic 12/10/2016 CHAMP [...] Z76.0 Encounter for issue of repeat prescription 07/24/2018 TRICIA MARINELLI DOI Ot F11.20 OPIOID DEPENDENCE, UNCOMPLICATED 07/24/2018 YVES NUNEZ SULTANA Ot G89.29 OTHER CHRONIC PAIN 07/24/2018 YVES NUNEZ SULTANA Ot J44.9 CHRONIC OBSTRUCTIVE PULMONARY DISEASE, U 07/24/2018 YVES NUNEZ SULTANA Ot K21.9 GASTRO-ESOPHAGEAL REFLUX DISEASE WITHOUT 07/24/2018 YVES NUNEZ SULTANA Ot M19.91 PRIMARY OSTEOARTHRITIS, UNSPECIFIED SITE 07/24/2018 YVES NUNEZ SULTANA Ot M54.5 LOW BACK PAIN 07/24/2018 YVES NUNEZ SULTANA Ot M79.10 MYALGIA, UNSPECIFIED SITE 07/24/2018 YVES NUNEZ SULTANA Ot N19 UNSPECIFIED KIDNEY FAILURE 07/24/2018 YVES NUNEZ SULTANA Ot N30.00 ACUTE CYSTITIS WITHOUT HEMATURIA 07/24/2018 TRICIA MARINELLI DOI Ot R53.81 OTHER MALAISE 07/24/2018 YVES NUNEZ SULTANA Ot Z79.899 OTHER CUSTODIAL (CURRENT) DRUG THERAPY 07/24/2018 YVES NUNEZ SULTANA Ot Z88.0 ALLERGY STATUS TO PENICILLIN 07/24/2018 TRICIA MARINELLI DOI Ot Z88.2 ALLERGY STATUS TO SULFONAMIDES STATUS 07/24/2018 TRICIA MARINELLI DOI Ot Z96.651 PRESENCE OF RIGHT ARTIFICIAL KNEE JOINT Procedures Code Description [place] [address] US CAROTID DOPPLER 02/27/2012 09946 ROUTINE VENIPUNCTURE 03/16/2012 33355 A1C (IN-HOUSE) 03/16/2012 10793 CMP 03/16/2012 53125 LIVER PANEL (LFT) 03/16/2012 34236 LIPID PANEL 03/16/2012 [id number] GFR CALC (RESULT ONLY) 03/16/2012 68112 INSULIN LEVEL 03/17/2012 26039 ROUTINE VENIPUNCTURE 04/28/2012 35726 CMP 04/28/2012 [id number] GFR CALC (RESULT ONLY) 04/28/2012 73355 H PYLORI (IN-HOUSE) 05/14/2012 11044 MRI SPINE (LUMBAR) W/O CONTRAST 03/01/2013 81211 ROUTINE VENIPUNCTURE 06/11/2013 08261 SED/ESR RATE (IN HOUSE) 06/11/2013 79102 [facility] 06/11/2013 [id number] GFR CALC (RESULT ONLY) 06/11/2013 34538 TSH 06/11/2013 75468 ROUTINE VENIPUNCTURE 06/18/2013 [id number] CALCIUM (RESULT ONLY) 06/19/2013 [id number] PTH INTACT SONI (RESULT ONLY) 06/19/2013 15744 PTH (intact) (ORDER ONLY) 06/25/2013 36710 A1C (IN-HOUSE) 06/25/2013 24538 ROUTINE VENIPUNCTURE 09/10/2013 98263 UA LONG DIP 09/10/2013 [id number] GFR CALC (RESULT ONLY) 09/10/2013 67008 [facility] 09/10/2013 12335 ROUTINE VENIPUNCTURE 12/27/2013 05395 MAGNESIUM 12/27/2013 28954 XRAY HIP LEFT UNILATERAL MIN 2 VIEWS [...] urine sediment by light microscopy 2-5 NRG Bacterial urine culture - 07/22/18 16:34 Bacterial urine culture GRAM POS M NRG COLONY COUNT 20,000 CFU/ML NRG FTX;REPORTABLE NO FURTHER TESTING NRG Complete blood count (CBC) with automated [...] g/dL 3.2-4.5 CALCIUM CORRECTED 9.2 mg/dL 8.5-10.1 Complete blood count (CBC) with automated white blood cell (WBC) differential - 07/24/18 04:34 Blood leukocytes automated count (number/volume) 5.5 10*3/uL 4.3-11.0 Blood erythrocytes automated count (number/volume) 3.58 10*6/uL 4.35-5.85 Venous blood hemoglobin measurement (mass/volume) 10.3 g/dL 11.5-16.0 Blood hematocrit (volume fraction) 32 % 35-52 Automated erythrocyte mean corpuscular volume 88 [foz_us] 80-99 Automated erythrocyte mean corpuscular hemoglobin (mass per erythrocyte) 29 pg 25-34 Automated erythrocyte mean corpuscular hemoglobin concentration measurement (mass/volume) 33 g/dL 32-36 Automated erythrocyte distribution width ratio 13.7 % 10.0- 14.5 Automated blood platelet count (count/volume) 250 10*3/uL 130-400 Automated blood platelet mean volume measurement 9.6 [foz_us] 7.4-10.4 Automated blood neutrophils/100 leukocytes 55 % 42-75 Automated blood lymphocytes/100 leukocytes 26 % 12-44 Blood monocytes/100 leukocytes 12 % 0-12 Automated blood eosinophils/100 leukocytes 6 % 0-10 Automated blood basophils/100 leukocytes 1 % 0-10 Blood neutrophils automated count (number/volume) 3.0 10*3 1.8-7.8 Blood lymphocytes automated count (number/volume) 1.4 10*3 1.0-4.0 Blood monocytes automated count (number/volume) 0.7 10*3 0.0- 1.0 Automated eosinophil count 0.4 10*3/uL 0.0-0.3 Automated blood basophil count (count/volume) 0.0 10*3/uL 0.0-0.1 Comprehensive metabolic panel - 07/24/18 04:34 Serum or plasma sodium measurement (moles/volume) 138 mmol/L 135-145 Serum or plasma potassium measurement (moles/volume) 3.7 mmol/L 3.6-5.0 Serum or plasma chloride measurement (moles/volume) 108 mmol/L 98-107 Carbon dioxide 22 mmol/L 21-32 Serum or plasma anion gap determination (moles/volume) 8 mmol/L 5-14 Serum or plasma urea nitrogen measurement (mass/volume) 10 mg/dL 7-18 Serum or plasma creatinine measurement (mass/volume) 0.72 mg/dL 0.60-1.30 Serum or plasma urea nitrogen/creatinine mass ratio 14 NRG Serum or plasma creatinine measurement with calculation of estimated glomerular filtration rate > NRG Serum or plasma glucose measurement (mass/volume) 123 mg/dL 70-105 Serum or plasma calcium measurement (mass/volume) 8.7 mg/dL 8.5-10.1 Serum or plasma total bilirubin measurement (mass/volume) 0.6 mg/dL 0.1-1.0 Serum or plasma alkaline phosphatase measurement (enzymatic activity/volume) 146 U/L 40-136 Serum or plasma aspartate aminotransferase measurement (enzymatic activity/volume) 18 U/L 5-34 Serum or plasma alanine aminotransferase measurement (enzymatic activity/volume) 19 U/L 0-55 Serum or plasma protein measurement (mass/volume) 5.6 g/dL 6.4-8.2 Serum or plasma albumin measurement (mass/volume) 3.2 g/dL 3.2-4.5 CALCIUM CORRECTED 9.3 mg/dL 8.5-10.1 Encounters ACCT No. Visit Date/Time Discharge Status Pt. Type Provider Facility Loc./Unit Complaint [id number] 07/03/2018 14:15:00 07/03/2018 18:15:00 DIS Outpatient [facility] [id number] 06/03/2018 14:15:00 06/03/2018 18:15:00 [id number] 05/14/2018 12:16:00 05/14/2018 23:59:59 CLS Outpatient [facility] [id number] 05/14/2018 11:45:00 05/14/2018 15:45:00 [facility] [id number] 04/28/2018 13:30:00 04/28/2018 17:30:00 [facility] [id number] 03/10/2018 10:00:00 03/10/2018 14:00:00 [facility] [id number] 01/07/2018 13:45:00 01/07/2018 17:45:00 [facility] [id number] 12/12/2017 11:32:00 12/12/2017 15:32:00 DIS Outpatient [facility]ON [facility] [id number] 12/12/2017 11:15:00 12/12/2017 15:15:00 [facility] [id number] 11/19/2017 14:00:00 11/19/2017 18:00:00 DIS Outpatient SLOYER, [facility] CL [id number] 11/07/2017 10:30:00 11/07/2017 14:30:00 DIS Outpatient SLOYER, [facility] CL [id number] 10/28/2017 11:45:00 10/28/2017 15:45:00 DIS Outpatient SLOYER, [facility] CL [id number] 07/16/2017 10:00:00 07/16/2017 14:00:00 DIS Outpatient SLOYER, [facility] CL [id number] 04/22/2017 11:15:00 04/22/2017 15:15:00 DIS Outpatient SLOYER, [facility] CL [id number] 04/09/2017 13:00:00 04/09/2017 23:59:59 CLS Outpatient [facility] [id number] 03/11/2017 11:30:00 03/11/2017 15:30:00 DIS Outpatient SLOYER, [facility] CL [id number] 01/28/2017 10:30:00 01/28/2017 14:30:00 DIS Outpatient SLOYER, [facility] CL [id number] 12/24/2016 14:00:00 12/24/2016 18:00:00 DIS Outpatient SLOYER, [facility] CL [id number] 12/10/2016 12:01:00 12/10/2016 23:59:59 CLS Outpatient SLOYER, [facility] OT [id number] 12/10/2016 11:00:00 12/10/2016 15:00:00 DIS Outpatient SLOYER, [facility] CL [id number] 11/06/2016 10:09:00 11/06/2016 14:09:00 DIS Outpatient SLOYER, [facility] OT [id number] 11/06/2016 09:45:00 11/06/2016 13:45:00 DIS Outpatient SLOYER, [facility] CL [id number] 10/07/2016 11:15:00 10/07/2016 15:15:00 DIS RB SLOYER, [facility] CL [id number] 09/06/2016 11:30:00 09/06/2016 [facility]30[id number] 08/12/2016 11:30:00 08/12/2016 15:30:[facility] [id number] 07/12/2016 09:56:00 07/12/2016 13:56:00 [id number] 07/12/2016 09:15:00 07/12/2016 13:15:00 [facility] [id number] 06/10/2016 09:00:00 06/10/2016 13:00:[facility] [id number] 05/10/2016 09:45:00 05/10/2016 13:45:00 [facility] [id number] 04/22/2016 15:00:00 04/22/2016 19:00:00 [facility] [id number] 04/10/2016 11:00:00 04/10/2016 15:00:00 [id number] 04/10/2016 09:30:00 04/10/2016 13:30:00 [facility] [id number] 03/15/2016 10:00:00 03/15/2016 14:00:00 [facility] [id number] 03/01/2016 10:45:00 03/01/2016 14:45:00 [facility] [id number] 02/14/2016 10:00:00 02/14/2016 14:00:00 [facility] [id number] 02/14/2016 09:15:00 02/14/2016 13:15:00 [id number] 01/11/2016 10:30:00 01/11/2016 14:30:00 [facility] [id number] 11/15/2015 13:30:00 11/15/2015 17:30:00 [facility] [id number] 10/24/2015 09:30:00 10/24/2015 13:30:00 [facility] [id number] 09/22/2015 10:30:00 09/22/2015 14:30:00 [facility] [id number] 09/22/2015 10:23:00 09/22/2015 14:23:00 [id number] 08/25/2015 10:30:00 08/25/2015 14:30:00 [facility] [id number] 08/25/2015 10:14:00 08/25/2015 14:14:00 [facility] [id number] 08/25/2015 09:15:00 08/25/2015 13:15:00 [facility] [id number] 08/25/2015 08:45:00 08/25/2015 12:45:00 [facility] [id number] 07/26/2015 11:30:00 07/26/2015 15:30:00 [facility] [id number] 07/26/2015 11:00:00 07/26/2015 15:00:00 DIS OP FEJFAR, [facility] OT [id number] 07/26/2015 10:00:00 07/26/2015 14:00:00 [facility] [id number] 06/28/2015 11:45:00 06/28/2015 15:45:00 [facility] [id number] 06/24/2015 10:38:00 06/24/2015 14:38:00 [id number] 06/24/2015 10:15:00 06/24/2015 14:15:00 [facility] [id number] 05/30/2015 10:15:00 05/30/2015 14:15:00 [facility] [id number] 05/30/2015 09:46:00 05/30/2015 13:46:00 [facility] [id number] 05/01/2015 10:00:00 05/01/2015 14:00:00 DIS RB SLOYER [facility] CL [id number] 03/30/2015 09:45:00 03/30/2015 13:45:00 [facility] [id number] 03/02/2015 11:00:00 03/02/2015 15:00:00 [facility] [id number] 03/02/2015 09:42:00 03/02/2015 13:42:00 [facility] [id number] 02/01/2015 13:45:00 02/01/2015 17:45:00 [facility] [id number] 12/30/2014 11:45:00 12/30/2014 15:45:00 [facility] [id number] 11/28/2014 14:00:00 11/28/2014 18:00:00 [facility] [id number] 10/21/2014 10:30:00 10/21/2014 14:30:00 [facility] [id number] 09/20/2014 14:00:00 09/20/2014 18:00:00 [facility] [id number] 08/22/2014 15:00:00 08/22/2014 19:00:00 DIS [facility] [id number] 08/22/2014 13:32:00 08/22/2014 17:32:00 [facility] [id number] 08/22/2014 13:30:00 08/22/2014 17:30:00 DIS RB SLOYER, [facility] CL [id number] 07/27/2014 14:30:00 07/27/2014 18:30:00 DIS RB SIMON [facility] CL [id number] 10/25/2016 16:20:00 ACT CHAMP BOLES [id number] 07/12/2016 09:15:00 PEN RB [id number] 07/04/2016 08:53:00 ACT CHAMP BOLES [id number] 04/10/2016 12:02:00 DIS PB SIMON [facility] OT [id number] 12/26/2015 08:10:00 ACT CHAMP BOLES [id number] 12/13/2015 09:30:00 PEN RB SIMON [facility] CL [id number] 10/23/2015 09:30:00 PEN RB [id number] 06/27/2015 11:15:00 PEN RB [id number] 05/30/2014 08:19:00 05/30/2014 23:59:59 CLS Outpatient LAURY MAN MD [id number] 03/25/2014 07:59:00 03/25/2014 23:59:59 CLS Outpatient LAURY MAN MD [id number] 01/03/2014 10:32:00 01/03/2014 23:59:59 CLS Outpatient LAURY MAN MD [id number] 12/27/2013 09:03:00 12/27/2013 23:59:59 CLS Outpatient LAURY MAN MD [id number] 11/29/2013 09:30:00 11/29/2013 23:59:59 CLS Outpatient LAURY MAN MD [id number] 11/01/2013 09:43:00 11/01/2013 23:59:59 CLS Outpatient LAURY MAN MD [id number] 10/19/2013 11:32:00 10/19/2013 23:59:59 CLS Outpatient LAURY MAN MD [id number] 09/10/2013 08:26:00 09/10/2013 23:59:59 CLS Outpatient LAURY MAN MD [id number] 09/10/2013 08:26:00 09/10/2013 23:59:59 CLS Outpatient LAURY MAN MD [id number] 08/05/2013 09:18:00 08/05/2013 23:59:59 CLS Outpatient LAURY MAN MD [id number] 06/25/2013 07:49:00 06/25/2013 23:59:59 CLS Outpatient LAURY MAN MD [id number] 06/25/2013 07:49:00 06/25/2013 23:59:59 CLS Outpatient LAURY MAN MD [id number] 06/18/2013 09:26:00 06/18/2013 23:59:59 CLS Outpatient LAURY MAN MD [id number] 04/16/2013 09:44:00 04/16/2013 23:59:59 CLS Outpatient LAURY MAN MD [id number] 03/19/2013 08:53:00 03/19/2013 23:59:59 CLS Outpatient LAURY MAN MD [id number] 02/23/2013 15:11:00 02/23/2013 23:59:59 CLS Outpatient LAURY MAN MD [id number] 01/25/2013 15:27:00 01/25/2013 23:59:59 CLS Outpatient LAURY MAN MD [id number] 12/17/2012 10:14:00 12/17/2012 23:59:59 CLS Outpatient BENNIE ROCHARoya MONICA Deras [id number] 11/30/2012 15:49:00 11/30/2012 23:59:59 CLS Outpatient LAURY MAN MD [id number] 10/15/2012 09:26:00 10/15/2012 23:59:59 CLS Outpatient LAURY MAN MD [id number] 05/14/2012 10:01:00 05/14/2012 23:59:59 CLS Outpatient LAURY MAN MD [id number] 04/28/2012 10:37:00 04/28/2012 23:59:59 CLS Outpatient LAURY MAN MD [id number] 04/08/2012 10:51:00 04/08/2012 23:59:59 CLS Outpatient ELY RIVERA APRN [id number] 03/16/2012 09:02:00 03/16/2012 23:59:59 CLS Outpatient LAURY MAN MD [id number] 03/16/2012 09:02:00 03/16/2012 23:59:59 CLS Outpatient LAURY MAN MD [id number] 02/21/2012 13:52:00 02/21/2012 23:59:59 CLS Outpatient LAURY MAN MD [id number] 01/14/2012 15:10:00 01/14/2012 23:59:59 [place] [id number] 11/14/2011 15:14:00 11/14/2011 23:59:59 CLS Outpatient LAURY MAN MD [id number] 09/15/2012 13:38:00 Document Registration [id number] 06/26/2012 07:44:00 Document Registration [id number] 07/22/2018 19:45:00 07/24/2018 10:56:00 DIS Inpatient SULTANA MARINELLI DO [facility] 4TH PHYSICAL DEBILITY;UTI;S/P RT KNEE REPLACEMENT [id number] 10/02/2013 15:41:00 10/02/2013 16:46:00 DIS Emergency OLIVER CARDONA DO [facility] ER BACK PAIN
[2018-08-12 03:44] LABS: CHLORIDE 103 MMOL/L (98-107); POTASSIUM 3.7 MMOL/L (3.6-5.0); SODIUM 139 MMOL/L (135-145)
[2018-08-12 03:45] LABS: ACETAMINOPHEN < 10 UG/ML (10-30); ALANINE AMINOTRANSFERASE 6 U/L (0-55); ALBUMIN 4.1 GM/DL (3.2-4.5); ALKALINE PHOSPHATASE 139 U/L (40-136); BILIRUBIN,TOTAL 0.4 MG/DL (0.1-1.0); BUN/CREATININE RATIO 13; CALCIUM 9.3 MG/DL (8.5-10.1); CARBON DIOXIDE 21 MMOL/L (21-32); CREATININE SERUM 0.89 MG/DL (0.60-1.30); GFR ESTIMATED > 60; GLUCOSE 101 MG/DL (70-105); SALICYLATE < 5.0 MG/DL (5.0-20.0); TOTAL PROTEIN 6.8 GM/DL (6.4-8.2)
[2018-08-12 03:48] LABS: BILIRUBIN,URINE NEGATIVE (NEGATIVE); CLARITY,URINE CLEAR; COLOR,URINE YELLOW; GLUCOSE, URINE (UA) NEGATIVE (NEGATIVE); KETONES,URINE NEGATIVE (NEGATIVE); NITRITE,URINE NEGATIVE (NEGATIVE); PH,URINE 6.5 (5-9); PROTEIN,URINE NEGATIVE (NEGATIVE)
[2018-08-12 03:49] LABS: LEUKOCYTE ESTERASE ,URINE NEGATIVE (NEGATIVE); SQUAMOUS EPITHELIAL CELL,UR RARE /HPF; UROBILINOGEN,URINE 0.2 MG/DL (NORMAL); WBC,URINE RARE /HPF
[2018-08-12 03:58] LABS: AMPHETAMINE SCREEN, URINE NEGATIVE (NEGATIVE); BARBITURATE SCREEN URINE NEGATIVE (NEGATIVE); BENZODIAZEPINES SCREEN URINE POSITIVE (NEGATIVE); CANNABINOID SCREEN, URINE NEGATIVE (NEGATIVE); COCAINE SCREEN URINE NEGATIVE (NEGATIVE); METHADONE STAT NEGATIVE (NEGATIVE); METHAMPHETAMINE SCREEN URINE S NEGATIVE (NEGATIVE); OPIATE SCREEN URINE NEGATIVE (NEGATIVE); OXYCODONE STAT POSITIVE (NEGATIVE); PROPOXYPHENE STAT NEGATIVE (NEGATIVE); TRICYCLIC ANTIDEPRESSANTS SCRE POSITIVE (NEGATIVE)
[2018-08-12 05:07] VITALS: BP 141/87
--- NOTE | 2018-08-12 06:32 | Diagnostic Imaging Report ---
PROCEDURE: CT head and CT cervical spine without contrast. TECHNIQUE: Multiple contiguous axial images were obtained through the brain and cervical spine without the use of intravenous contrast. Sagittal and coronal reformations through the cervical spine were then performed. Auto Exposure Controls were utilized during the CT exam to meet ALARA standards for radiation dose reduction. INDICATION: Altered mental status, confusion. CT of the head: There are no prior studies available for comparison. FINDINGS: There is no mass, shift of midline or hemorrhage to suggest an acute intracranial abnormality. There is a prominent area of diminished density along the medial aspect of the right occipital lobe. 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 The ventricles are not abnormally dilated. There is cortical atrophy present. The degree of atrophy is consistent with the patient's age. Bone windows show no sign of a fracture or destructive lesion. There are 2 orthopedic fixation screws along the anterior margin of the right orbital rim. The orbits themselves are otherwise symmetrical and within normal limits. The sinuses are generally clear. IMPRESSION: 1. There is no evidence for an acute intracranial abnormality. 2. If clinical concern regarding an underlying abnormality persists, then MRI would be recommended for further study. 3. There are postsurgical changes involving the right orbital rim. CT cervical spine: As noted on the prior CT cervical spine exam of 01/13/2010, there has been anterior fusion of C4, C5 and C6. The orthopedic hardware remains in good position. In the interval since the prior study, a prominent bridging osteophyte has developed along the anterior aspect of the C3-C4 disc space. There has also been further narrowing of the disc space at C6-C7. The axial images fail to show any sign of a high-grade central stenosis. There is no fracture or acute bony abnormality evident. There is no evidence for retropharyngeal edema. There is heavy calcification of both carotid bifurcations. The thyroid gland is unremarkable. Lung apices are clear. IMPRESSION: 1. There is no evidence for an acute bony abnormality. 2. The fusion of C4, C5 and C6 seen previously appear stable. 3. There has been progression of the degenerative disc and bony disease in the cervical spine since the prior exam, however. If further study is desired, then MRI would be recommended. Dictated by: Dictated on workstation # [id number]
[2018-08-12 07:02] VITALS: BP 168/59
[2018-08-12] MEDS ORDERED: ANTACID SUSP 30 ML UDC (MYLANTA) ONE (07:35)
[2018-08-12] MEDS ORDERED: CALCIUM CARBONATE 500 MG (TUMS) TAB.CHEW PO ONE (07:45)
== END 2018-08-12 08:21 | disposition home or self-care (01) ==
LOC: ER FS 02:42
DX: F19.159 Other psychoactive substance abuse with psychoactive substance-induced psychotic disorder, unspecified (principal); J44.9 Chronic obstructive pulmonary disease, unspecified; I25.10 Atherosclerotic heart disease of native coronary artery without angina pectoris; I10 Essential (primary) hypertension; E78.00 Pure hypercholesterolemia, unspecified; G43.909 Migraine, unspecified, not intractable, without status migrainosus; M81.0 Age-related osteoporosis without current pathological fracture; M79.7 Fibromyalgia; F41.9 Anxiety disorder, unspecified; Z86.73 Personal history of transient ischemic attack (TIA), and cerebral infarction without residual deficits; Z88.6 Allergy status to analgesic agent; Z88.5 Allergy status to narcotic agent; Z88.0 Allergy status to penicillin; Z88.2 Allergy status to sulfonamides; Z88.8 Allergy status to other drugs, medicaments and biological substances; Z79.02 Long term (current) use of antithrombotics/antiplatelets; Z90.710 Acquired absence of both cervix and uterus; Z96.659 Presence of unspecified artificial knee joint
CPT/HCPCS: 36415; 70450; 72125; 80053; 80306; 80320; 80329; 81000; 85025

== ENCOUNTER 2018-10-26 20:41 | Emergency (ER) | payer MEDICAID ==
[~2018-10-26] VITALS: Ht 167 cm; Wt 69.0 kg
[2018-10-26 21:34] LABS: BASOPHILS # (AUTO) 0.1 10^3/uL (0.0-0.1); BASOPHILS % (AUTO) 1 % (0-10); EOSINOPHILS # (AUTO) 0.2 10^3/uL (0.0-0.3); EOSINOPHILS % (AUTO) 4 % (0-10); HEMATOCRIT 36 % (35-52); LYMPHOCYTES # (AUTO) 1.5 X 10^3 (1.0-4.0); LYMPHOCYTES % (AUTO) 26 % (12-44); MEAN CORPUSCULAR HEMOGLOBIN 28 PG (25-34); MEAN CORPUSCULAR HGB CONC 34 G/DL (32-36); MEAN CORPUSCULAR VOLUME 83 FL (80-99); MEAN PLATELET VOLUME 9.3 FL (7.4-10.4); MONOCYTES # (AUTO) 0.3 X 10^3 (0.0-1.0); MONOCYTES % (AUTO) 6 % (0-12); NEUTROPHILS # (AUTO) 3.6 X 10^3 (1.8-7.8); NEUTROPHILS % (AUTO) 64 % (42-75); PLATELET COUNT 227 10^3/uL (130-400); RED CELL DISTRIBUTION WIDTH 14.8 % (10.0-14.5); WHITE BLOOD COUNT 5.7 10^3/uL (4.3-11.0)
--- NOTE | 2018-10-26 21:45 | ED Fall/Injury ---
General Chief Complaint: Trauma-Non Activation Stated Complaint: SLURRED SPEACH, DISORIENTED Nursing Triage Note: PT FOUND AT HOME FACE DOWN BY HER SON. PT RESPONDING TO QUESTIONS, ORIENTED TO PERSON AND PLACE Source: patient, family (son) History of Present Illness Date Seen by Provider: Oct 26, 2018 Time Seen by Provider: 20:48 Initial Comments 73-year-old female presenting with altered mental status and slurred speech. Her son had found her on the floor after hitting her head against a heavy coffee table. He stated that she had been acting normal previously but then he had leftover run an errand and when he came back found her laying on the floor with her head against the coffee table that had been removed. He felt that the coffee table and moved as she hit her head against that. He stated that she was unable to answer questions appropriately and seemed to be confused. She was having slurred speech as well. She was having difficulty concentrating and answering questions. According to her son she was acting completely normal and answering questions appropriately before 7:45 PM. Allergies and Home Medications Allergies Coded Allergies: amylase (Unverified Allergy, Mild, 05/04/10) aspirin (Unverified Allergy, Mild, 08/09/08) flurbiprofen (Unverified Allergy, Mild, 07/23/08) lipase (Unverified Allergy, Mild, 05/04/10) protease (Unverified Allergy, Mild, 05/04/10) NSAIDS (Non-Steroidal Anti-Inflamma (Verified Allergy, Unknown, 10/02/06) Penicillins (Verified Allergy, Unknown, 10/02/06) Sulfa (Sulfonamide Antibiotics) (Verified Allergy, Unknown, 10/02/06) chlorhexidine (Verified Allergy, Unknown, RASH/SORES, 07/23/18) rofecoxib (Verified Allergy, Unknown, 10/02/06) tramadol (Verified Allergy, Unknown, PT CAN TAKE MORPHINE WITHOUT PROBLEM, 10/02/06) trazodone (Verified Allergy, Unknown, 10/02/06) alprazolam (Unverified Adverse Reaction, Unknown, 10/02/13) STATES MAKES HER "LOOPY" diazepam (Unverified Adverse Reaction, Unknown, 10/02/13) STATES IT MAKES HER "LOOPY" Home Medications Albuterol Sulfate 2.5 Mg/3 Ml Vial.neb, 2.5 MG NEB Q6H PRN for SHORTNESS OF BREATH, (Reported) Albuterol/Ipratropium 4 Gm Aero, 2 PUFF INH QID PRN for SHORTNESS OF BREATH, (Reported) Amitriptyline HCl 50 Mg Tablet, 50 MG PO HS, (Reported) Clopidogrel Bisulfate 75 Mg Tablet, 75 MG PO DAILY, (Reported) Diphenoxylate HCl/Atropine 1 Each Tablet, 2 TAB PO QID PRN for DIARRHEA, (Reported) Gabapentin 600 Mg Tablet, 600 MG PO TID, (Reported) Hydroxyzine HCl 25 Mg Tablet, 25 MG PO QID PRN for ITCHING, (Reported) Lansoprazole 30 Mg Capsule.dr, 30 MG PO DAILY, (Reported) Lisinopril 20 Mg Tablet, 10 MG PO BID, (Reported) TAKES 1/2 (20MG) TABLET Lorazepam 1 Mg Tablet, 1 MG PO HS, (Reported) Lorazepam 1 Mg Tablet, 0.5 MG PO DAILY, (Reported) TAKES 1/2 (1MG) TABLET Oxycodone HCl 10 Mg Tablet, 10-20 MG PO QID PRN for PAIN-SEVERE, (Reported) Promethazine HCl 25 Mg Tablet, 25 MG PO TID PRN for NAUSEA/VOMITING-2ND LINE, (Reported) Pseudoephedrine HCl 30 Mg Tablet, 30 MG PO Q4H PRN for CONGESTION, (Reported) Ranitidine HCl 150 Mg Tablet, 150 MG PO BID, (Reported) Sumatriptan Succinate 100 Mg Tablet, 100 MG PO UD PRN for MIGRAINE, (Reported) PER MANUF RECOMMENDED INSTRUCTIONS Patient Home Medication List Home Medication List Reviewed: Yes Review of Systems Review of Systems Constitutional: No chills, No fever Eyes: Denies Blurred Vision, Denies Pain, Denies Photophobia Ears, Nose, Mouth, Throat: denies ear pain, denies ear discharge, denies nose pain, denies nose discharge Respiratory: No cough Cardiovascular: No chest pain Gastrointestinal: No nausea, No vomiting Genitourinary: No dysuria, No frequency, No pain Musculoskeletal: joint pain (hip pain) Skin: No change in color; other (swelling to the occiput) Psychiatric/Neurological: See HPI Past Xofwank-Nckurh-Aabxzl Hx Past Med/Social Hx: Reviewed Nursing Past Med/Soc Hx Patient Social History Alcohol Use: Denies Use Recreational Drug Use: No 2nd Hand Smoke Exposure: No Recent Foreign Travel: No Contact w/Someone Who Travel: No Recent Infectious Disease Expo: No Recent Hopitalizations: No (knee replacement at [facility]) Physical Abuse: No Sexual Abuse: No Mistreated: No Seasonal Allergies Seasonal Allergies: No Past Medical History Surgeries: Yes (knee arthroscopy, removal superficial implant, shoulder fx tx, ankle fx tx,) Hysterectomy, Joint Replacement, Orthopedic Respiratory: Yes (Chronic airway obstruction) Pneumonia, COPD Cardiac: Yes (CAD, chest pain, unspecified essential hypertension, chest wall pain) High Cholesterol, Hypertension Neurological: Yes Headaches /Migraines, TIA Reproductive Disorders: No Genitourinary: Yes (Urinary tract infection) Renal Failure Pancreatitis Musculoskeletal: Yes (herniated intervetebral disk, chronic knee pain, chronic neck pain, back pa) Osteoporosis, Fibromyalgia Endocrine: Yes (hypokalemia, hypomagnesemia) HEENT: No Cataract, Eye Injury Cancer: Yes Psychosocial: Yes (chronic narcotic dependence, drug-seeking behavior, excessive somnolence di) Anxiety Integumentary: No Blood Disorders: Yes (anemia) Physical Exam Vital Signs Vital Signs - First Documented 10/26/18 10/26/18 20:50 23:30 Temp 36.9 Pulse 82 Resp 16 B/P (MAP) 113/54 (73) Pulse Ox 96 O2 Delivery Room Air O2 Flow Rate 2.00 Capillary Refill : Less Than 3 Seconds Height, Weight, BMI Height: 5'7.00" Weight: 152lbs. 7.0oz. 68.215257oo; 24.00 BMI Method:Stated General Appearance: WD/WN, thin, other (confusional state and having difficulty answering questions) HEENT: PERRL/EOMI, normal ENT inspection, TMs normal, pharynx normal Neck: non-tender, full range of motion, supple, normal inspection Cardiovascular: normal peripheral pulses, regular rate, rhythm Respiratory: chest non-tender, lungs clear, normal breath sounds Gastrointestinal: normal bowel sounds, soft, no pulsatile mass Back: no CVA tenderness Extremities: normal range of motion, no pedal edema, no calf tenderness, normal capillary refill Neurologic/Psychiatric: No facial droop, No motor weakness, No sensory deficit Skin: warm/dry, pallor [place] Coma Score Best Eye Response: (3) Open to Voice Best Verbal Response: (4) Confused Conversation Best Motor Response: (6) Obeys Commands [place] Total: 13 Progress/Results/Core Measures Results/Orders Lab Results Laboratory Tests Test 10/26/18 21:02 10/26/18 21:20 10/26/18 22:05 Range/Units Glucometer 142 H 70-110 MG/DL White Blood Count 5.7 4.3-11.0 10^3/uL Red Blood Count 4.31 L 4.35-5.85 10^6/uL Hemoglobin 12.0 11.5-16.0 G/DL Hematocrit 36 35-52 % Mean Corpuscular Volume 83 80-99 FL Mean Corpuscular Hemoglobin 28 25-34 PG Mean Corpuscular Hemoglobin Concent 34 32-36 G/DL Red Cell Distribution Width 14.8 H 10.0-14.5 % Platelet Count 227 130-400 10^3/uL Mean Platelet Volume 9.3 7.4-10.4 FL Neutrophils (%) (Auto) 64 42-75 % Lymphocytes (%) (Auto) 26 12-44 % Monocytes (%) (Auto) 6 0-12 % Eosinophils (%) (Auto) 4 0-10 % Basophils (%) (Auto) 1 0-10 % Neutrophils # (Auto) 3.6 1.8-7.8 X 10^3 Lymphocytes # (Auto) 1.5 1.0-4.0 X 10^3 Monocytes # (Auto) 0.3 0.0-1.0 X 10^3 Eosinophils # (Auto) 0.2 0.0-0.3 10^3/uL Basophils # (Auto) 0.1 0.0-0.1 10^3/uL Prothrombin Time 13.9 12.2-14.7 SEC INR Comment 1.0 0.8-1.4 Activated Partial Thromboplast Time 26 24-35 SEC Sodium Level 141 135-145 MMOL/L Potassium Level 2.8 L 3.6-5.0 MMOL/L Chloride Level 105 98-107 MMOL/L Carbon Dioxide Level 20 L 21-32 MMOL/L Anion Gap 16 H 5-14 MMOL/L Blood Urea Nitrogen 19 H 7-18 MG/DL Creatinine 0.91 0.60-1.30 MG/DL Estimat Glomerular Filtration Rate 60 BUN/Creatinine Ratio 21 Glucose Level 130 H 70-105 MG/DL Calcium Level 9.4 8.5-10.1 MG/DL Corrected Calcium 9.1 8.5-10.1 MG/DL Total Bilirubin 0.5 0.1-1.0 MG/DL Aspartate Amino Transf (AST/SGOT) 16 5-34 U/L Alanine Aminotransferase (ALT/SGPT) 7 0-55 U/L Alkaline Phosphatase 102 40-136 U/L Troponin I < 0.30 <0.30 NG/ML Pro-B-Type Natriuretic Peptide 178.1 H <75.0 PG/ML Total Protein 6.8 6.4-8.2 GM/DL Albumin 4.4 3.2-4.5 GM/DL Salicylates Level < 5.0 L 5.0-20.0 MG/DL Acetaminophen Level < 10 L 10-30 UG/ML Serum Alcohol < 10 <10 MG/DL Urine Color YELLOW Urine Clarity CLEAR Urine pH 7.0 5-9 Urine Specific [place] <1.005 1.016-1.022 Urine Protein NEGATIVE NEGATIVE Urine Glucose (UA) NEGATIVE NEGATIVE Urine Ketones NEGATIVE NEGATIVE Urine Nitrite NEGATIVE NEGATIVE Urine Bilirubin NEGATIVE NEGATIVE Urine Urobilinogen 0.2 NORMAL MG/DL Urine Leukocyte Esterase NEGATIVE NEGATIVE Urine RBC (Auto) NEGATIVE NEGATIVE Urine RBC NONE /HPF Urine WBC RARE /HPF Urine Crystals NONE /LPF Urine Bacteria NONE /HPF Urine Casts NONE /LPF Urine Mucus NEGATIVE /LPF Urine Culture Indicated NO Urine Opiates Screen NEGATIVE NEGATIVE Urine Oxycodone Screen NEGATIVE NEGATIVE Urine Methadone Screen NEGATIVE NEGATIVE Urine Propoxyphene Screen NEGATIVE NEGATIVE Urine Barbiturates Screen NEGATIVE NEGATIVE Ur Tricyclic Antidepressants Screen POSITIVE H NEGATIVE Urine Phencyclidine Screen NEGATIVE NEGATIVE Urine Amphetamines Screen NEGATIVE NEGATIVE Urine Methamphetamines Screen NEGATIVE NEGATIVE Urine Benzodiazepines Screen POSITIVE H NEGATIVE Urine Cocaine Screen NEGATIVE NEGATIVE Urine Cannabinoids Screen NEGATIVE NEGATIVE My Orders Orders - AUNG MACKENZIE MD Iv/Invasive Line Insertion .IV start (10/26/18 21:16) Cbc With Automated Diff (10/26/18 21:16) Comprehensive Metabolic Panel (10/26/18 21:16) Protime With Inr (10/26/18 21:16) Partial Thromboplastin Time (10/26/18 21:16) Ct Head/Cervical Spine Wo (10/26/18 21:16) Ekg Tracing (10/26/18 21:16) Continuous Ekg Monitoring (10/26/18 21:16) Ua Culture If Indicated (10/26/18 21:16) Drug Screen Stat (Urine) (10/26/18 21:16) Alcohol (10/26/18 21:16) Salicylate (10/26/18 21:16) Acetaminophen (10/26/18 21:16) Pelvis (Ap) (10/26/18 21:16) Chest 1 View Ap/Pa Only (10/26/18 21:16) Troponin I (10/26/18 21:16) Probnp Fs (10/26/18 21:16) Vital Signs/I&O 10/26/18 10/26/18 20:50 23:30 Temp 36.9 Pulse 82 61 Resp 16 12 B/P (MAP) 113/54 (73) 102/89 Pulse Ox 96 90 O2 Delivery Room Air Nasal Cannula O2 Flow Rate 2.00 Blood Pressure Mean: 73 Progress Progress Note #1: Progress Note Obtain labs as well as Accu-Chek and EKG CT scan and cervical spine since he reports that she had fallen. Evaluate cardiac status as well as electrolytes and urine to look for signs of infection or cardiac dysrhythmia or heart attack or stroke that may have contributed to her fall. Also obtain urine drug screen to see if she might have drugs of abuse or taken opiates that might be contributing to her been worse today on top of her antipsychotics and benzodiazepine medications. Progress Note #2: Progress Note Her labs are not showing any acute significant abnormality on CBC or coags. Her chemistry shows mild hypokalemia at 2.8. Her renal function appears to the CT of her head and cervical spine is negative for acute intracranial hemorrhage or stroke. Her cervical spine is stable without fractures. Her chest x-ray and pelvis x-ray did not show signs of pneumonia or fracture. Her urinalysis was also clear of infection. Her urine drug screen was only showing the tricyclics and benzodiazepine medications that she is already taking. Her NIH stroke scale was 4 with having to off her the orientation questions one off for level of alertness and 1 off for her dysarthria. With her having the head injury I did discuss with the son about possible tPA administration but due to her head injury I did defer on administering TPA due to potential risk of hemorrhage. She has had a history of taking too much of her medication so it is a potential that she might have taken too many of her benzodiazepine medications and caused her to have altered mental status like this. However with her reportedly been normal 15-20 minutes prior to her son finding her like this it also could be that she was having an acute stroke rather than having acute onset of mental status changes. Typically medication should have a more gradual onset of mental status change. Based on all of this will transfer patient to a stroke center for further evaluation and treatment. Family requested to try and go to [place] if possible of convenience for location as well as they would have records on her from being transferred there previously. Progress Note #3: Progress Note Discussed with Marilee Buchanan about stroke transfer. Since she did also fall Will transfer to the emergency department. Patient's son was made aware that if she needed interventional radiology for clot retrieval she would need to be transferred again to a stroke center with Interventional Radiology. Initial ECG Impression Date: Oct 26, 2018 Initial ECG Impression Time: 21:49 Initial ECG Rate: 69 Initial ECG Rhythm: Normal Sinus Initial ECG Comparisson: No Previous ECG Available Comment Normal sinus rhythm with a heart rate of 69 bpm. ME interval 184 ms. QT interval 414 ms with a QT corrected interval 444 ms. There is no acute ST elevation. There is no prior tracing available for comparison. Diagnostic Imaging Diagonstic Imaging: CT Plain Films/CT/US/NM/MRI: c-spine, head Comments Impression her ears some motion artifact. No obvious intracranial hemorrhage. No skull fracture. Cervical spine impression no acute fracture or malalignment. Next Read by the radiologist Isaías Zaragoza M.D. at 2218 PM and faxed at 2222 PM. Reviewed: Reviewed [facility] Critical Care Note Critical Care Total Time (minutes) 45 minutes Progress 45 minutes of critical care time was spent with the patient. This time was excluding separately billable procedures. 35 minutes of critical care time was spent in obtaining history directly from the patient and family members, ordering tests and reviewing results, ordering interventions and reviewing response, reviewing the medical record, discussion with consultants, documentation of the chart. Departure Impression Primary Impression: Acute CVA (cerebrovascular accident) Additional Impressions: Altered mental status Qualified Codes: R40.4 - Transient alteration of awareness Slurred speech Fall from standing Qualified Codes: W19.XXXA - Unspecified fall, initial encounter Contusion of occipital region of scalp Qualified Codes: S00.03XA - Contusion of scalp, initial encounter Hypokalemia Disposition: 02 XFER SHT-TRM HOSP Condition: Stable Transfer Time Spoke to Accepting Phy: 23:09 Transfer Progress Notes d/w Dr. Pierre Garcia at ED in [facility] and he accepted pt in transfer. He did request that I speak with the son who has a normal power of deputy county attorney to see if he was willing to have the patient get TPA. Since her only contraindication would be the fall and head trauma. He noted that she did have approximately 6% chance of bleeding with that. Also I discussed with the son the fact that they do not have interventional radiology to perform the clot retrieval if a CT was performed and showed that she had proximal clot that needed to be removed. She would have to be transferred to another stroke center if that is came down. When discussed with the son he requested that we get her transferred to [facility] to have her evaluated that he understood that she may need to be transferred from there. When air ambulance transport services were contacted nobody was flying so will transport by ground. Transfer Facility: [facility] Method of Transfer: EMS Departure-Patient Inst. Referrals: LAURY MAN MD (PCP/Family) Primary Care Physician NIH Stroke Scale NIH Stroke Scale NIH : Select: Initial Level of Consciousness: 1=Aroused by mild stimuli Level of Consciousness-Questio: 2=Answer neither question LOC Commands: 0=Performs both tasks Gaze: 0=Normal Visual Waters: 0=No visual loss Facial Movement (Facial Paresi: 0=Normal symmetrical mnt Motor Function-Arms Right: 0=No drift Motor Function-Arms Left: 0=No drift Motor Function-Legs Right: 0=No drift Motor Function-Legs Left: 0=No drift Limb Ataxia: 0=Absent Sensory: 0=Normal:no loss Best Language: 0=No aphasia Dysarthria: 1=Mild to moderate loss Extinction & Inattention: 0=No abnormality NIH Stroke Scale Score: 4 AUNG MACKENZIE MD Oct 26, 2018 21:45
[2018-10-26 22:04] LABS: PROTHROMBIN TIME PATIENT 13.9 SEC (12.2-14.7)
[2018-10-26 22:05] LABS: ALANINE AMINOTRANSFERASE 7 U/L (0-55); ALKALINE PHOSPHATASE 102 U/L (40-136); BILIRUBIN,TOTAL 0.5 MG/DL (0.1-1.0); BUN/CREATININE RATIO 21; CALCIUM 9.4 MG/DL (8.5-10.1); CARBON DIOXIDE 20 MMOL/L (21-32); CHLORIDE 105 MMOL/L (98-107); CREATININE SERUM 0.91 MG/DL (0.60-1.30); GFR ESTIMATED 60; GLUCOSE 130 MG/DL (70-105); POTASSIUM 2.8 MMOL/L (3.6-5.0); SODIUM 141 MMOL/L (135-145)
[2018-10-26 22:06] LABS: ACETAMINOPHEN < 10 UG/ML (10-30); ALBUMIN 4.4 GM/DL (3.2-4.5); SALICYLATE < 5.0 MG/DL (5.0-20.0); TOTAL PROTEIN 6.8 GM/DL (6.4-8.2)
[2018-10-26 22:20] LABS: CLARITY,URINE CLEAR; COLOR,URINE YELLOW
[2018-10-26 22:21] LABS: AMPHETAMINE SCREEN, URINE NEGATIVE (NEGATIVE); BARBITURATE SCREEN URINE NEGATIVE (NEGATIVE); BENZODIAZEPINES SCREEN URINE POSITIVE (NEGATIVE); BILIRUBIN,URINE NEGATIVE (NEGATIVE); CANNABINOID SCREEN, URINE NEGATIVE (NEGATIVE); COCAINE SCREEN URINE NEGATIVE (NEGATIVE); GLUCOSE, URINE (UA) NEGATIVE (NEGATIVE); KETONES,URINE NEGATIVE (NEGATIVE); LEUKOCYTE ESTERASE ,URINE NEGATIVE (NEGATIVE); METHADONE STAT NEGATIVE (NEGATIVE); METHAMPHETAMINE SCREEN URINE S NEGATIVE (NEGATIVE); NITRITE,URINE NEGATIVE (NEGATIVE); OPIATE SCREEN URINE NEGATIVE (NEGATIVE); OXYCODONE STAT NEGATIVE (NEGATIVE); PROPOXYPHENE STAT NEGATIVE (NEGATIVE); PROTEIN,URINE NEGATIVE (NEGATIVE); TRICYCLIC ANTIDEPRESSANTS SCRE POSITIVE (NEGATIVE); UROBILINOGEN,URINE 0.2 MG/DL (NORMAL); WBC,URINE RARE /HPF
--- NOTE | 2018-10-26 23:25 | NUR ---
MEDFLIGHT DECLINED FLIGHT 2322 [employer] DECLINED FLIGHT 2321
[2018-10-26 23:30] VITALS: BP 102/89
--- NOTE | 2018-10-27 07:39 | Diagnostic Imaging Report ---
PROCEDURE: CT head and CT cervical spine without contrast. TECHNIQUE: Multiple contiguous axial images were obtained through the brain and cervical spine without the use of intravenous contrast. Sagittal and coronal reformations through the cervical spine were then performed. Auto Exposure Controls were utilized during the CT exam to meet ALARA standards for radiation dose reduction. INDICATION: Found down, trauma, fall. COMPARISON: CT head and C-spine of 08/12/2018. FINDINGS: CT head: No hyperdense hemorrhage or space-occupying mass. No hydrocephalus or midline shift. Encephalomalacia in the right occipital lobe is unchanged. Remainder of the morejon-white matter differentiation is normal. Global atrophy is unchanged. No acute skull fracture. Mastoid air cells are clear. Paranasal sinuses are also clear. CT cervical spine: No acute fracture or traumatic malalignment. Stable ACDF at C4-C6 which has mature osseous incorporation. No fracture of the plate and screws. No high-grade spinal stenosis. Lung apices are clear. Thyroid is normal. No supraclavicular or axillary lymphadenopathy. IMPRESSION: 1. No acute intracranial process or skull fracture. Old infarct in the right occipital lobe. 2. No acute fracture or traumatic malalignment in the cervical spine. 3. Findings are in agreement with the preliminary report. Dictated by: Dictated on workstation # [id number]
--- NOTE | 2018-10-27 07:41 | Diagnostic Imaging Report ---
INDICATION: Fall. COMPARISON: None available. TECHNIQUE: Single AP view of the pelvis. FINDINGS: Left total hip arthroplasty. Old healed fracture of the left inferior pubic ramus. No acute displaced fracture is appreciated. No diastasis of the symphysis pubis or SI joints. Mild degenerative arthritis of the right hip. IMPRESSION: No acute osseous abnormality in the pelvis by radiography. Dictated by: Dictated on workstation # [id number]
--- NOTE | 2018-10-27 07:43 | Diagnostic Imaging Report ---
CHEST 1 VIEW AP/PA ONLY Indication: Chest pain. Comparison: 11/30/2011 Findings: No focal airspace disease in the visualized lungs. Please note that the posterior lower lobes are poorly evaluated by portable radiography. No pleural effusion or pneumothorax. Normal cardiomediastinal silhouette. Small hiatal hernia is unchanged. Impression: 1. No acute cardiopulmonary process by portable radiography. Dictated by: Dictated on workstation # [id number]
== END 2018-10-26 23:50 | disposition short-term general hospital (02) ==
LOC: EDUNIT# 20:41 → ER FS 20:42
DX: S00.03XA Contusion of scalp, initial encounter (principal); I63.9 Cerebral infarction, unspecified; R41.82 Altered mental status, unspecified; J44.9 Chronic obstructive pulmonary disease, unspecified; I10 Essential (primary) hypertension; I25.10 Atherosclerotic heart disease of native coronary artery without angina pectoris; E78.00 Pure hypercholesterolemia, unspecified; G43.909 Migraine, unspecified, not intractable, without status migrainosus; M81.0 Age-related osteoporosis without current pathological fracture; M79.7 Fibromyalgia; F41.9 Anxiety disorder, unspecified; Z86.73 Personal history of transient ischemic attack (TIA), and cerebral infarction without residual deficits; Z87.01 Personal history of pneumonia (recurrent); Z88.6 Allergy status to analgesic agent; Z88.0 Allergy status to penicillin; Z88.2 Allergy status to sulfonamides; Z88.8 Allergy status to other drugs, medicaments and biological substances; Z88.5 Allergy status to narcotic agent; Z90.710 Acquired absence of both cervix and uterus; W22.8XXA Striking against or struck by other objects, initial encounter
CPT/HCPCS: 36415; 70450; 71045; 72125; 72170; 80053; 80306; 80320; 80329; 81000; 82962; 83880; 84484; 85025; 85610; 85730; 93005

== ENCOUNTER 2019-04-12 11:31 | Observation (INO) | payer MEDICAID ==
[~2019-04-12] VITALS: Ht 170.2 cm; Wt 70.9 kg
--- NOTE | 2019-04-12 11:43 | ED Neurological Problem ---
General Stated Complaint: UNRESPONSIVE Source: EMS Exam Limitations: clinical condition, physical impairment History of Present Illness Date Seen by Provider: Apr 12, 2019 Time Seen by Provider: 11:35 Initial Comments Patient presents via EMS in an unresponsive state. Family found her this morning and said they couldn't wake her up. Had last been seen at same family members last night around 10 and was normal. Does have a history of stroke about one year ago for which she was sent to [place], do not know what residual deficits if any she had after that. No other history known at this time. Patient awakes to painful stimuli and does follow a few commands, noted to squeeze either and when asked and did open her eyes, then unresponsive again Allergies and Home Medications Allergies Coded Allergies: amylase (Unverified Allergy, Mild, 05/04/10) aspirin (Unverified Allergy, Mild, 08/09/08) flurbiprofen (Unverified Allergy, Mild, 07/23/08) lipase (Unverified Allergy, Mild, 05/04/10) protease (Unverified Allergy, Mild, 05/04/10) NSAIDS (Non-Steroidal Anti-Inflamma (Verified Allergy, Unknown, 10/02/06) Penicillins (Verified Allergy, Unknown, 10/02/06) Sulfa (Sulfonamide Antibiotics) (Verified Allergy, Unknown, 10/02/06) chlorhexidine (Verified Allergy, Unknown, RASH/SORES, 07/23/18) rofecoxib (Verified Allergy, Unknown, 10/02/06) tramadol (Verified Allergy, Unknown, PT CAN TAKE MORPHINE WITHOUT PROBLEM, 10/02/06) trazodone (Verified Allergy, Unknown, 10/02/06) alprazolam (Unverified Adverse Reaction, Unknown, 10/02/13) STATES MAKES HER "LOOPY" diazepam (Unverified Adverse Reaction, Unknown, 10/02/13) STATES IT MAKES HER "LOOPY" Home Medications Albuterol Sulfate 2.5 Mg/3 Ml Vial.neb, 2.5 MG NEB Q6H PRN for SHORTNESS OF BREATH, (Reported) Albuterol/Ipratropium 4 Gm Aero, 2 PUFF INH QID PRN for SHORTNESS OF BREATH, (Reported) Amitriptyline HCl 50 Mg Tablet, 50 MG PO HS, (Reported) Clopidogrel Bisulfate 75 Mg Tablet, 75 MG PO DAILY, (Reported) Diphenoxylate HCl/Atropine 1 Each Tablet, 2 TAB PO QID PRN for DIARRHEA, (Reported) Gabapentin 600 Mg Tablet, 600 MG PO TID, (Reported) Hydroxyzine HCl 25 Mg Tablet, 25 MG PO QID PRN for ITCHING, (Reported) Lansoprazole 30 Mg Capsule.dr, 30 MG PO DAILY, (Reported) Lisinopril 20 Mg Tablet, 10 MG PO BID, (Reported) TAKES 1/2 (20MG) TABLET Lorazepam 1 Mg Tablet, 1 MG PO HS, (Reported) Lorazepam 1 Mg Tablet, 0.5 MG PO DAILY, (Reported) TAKES 1/2 (1MG) TABLET Oxycodone HCl 10 Mg Tablet, 10-20 MG PO QID PRN for PAIN-SEVERE, (Reported) Promethazine HCl 25 Mg Tablet, 25 MG PO TID PRN for NAUSEA/VOMITING-2ND LINE, (Reported) Pseudoephedrine HCl 30 Mg Tablet, 30 MG PO Q4H PRN for CONGESTION, (Reported) Ranitidine HCl 150 Mg Tablet, 150 MG PO BID, (Reported) Sumatriptan Succinate 100 Mg Tablet, 100 MG PO UD PRN for MIGRAINE, (Reported) PER MANUF RECOMMENDED INSTRUCTIONS Patient Home Medication List Home Medication List Reviewed: Yes Past Pwwkkcm-Kwkgni-Nwxkwe Hx Past Med/Social Hx: Reviewed Nursing Past Med/Soc Hx Patient Social History 2nd Hand Smoke Exposure: No Recent Foreign Travel: Yes Recent Hopitalizations: No (knee replacement at [facility]) Seasonal Allergies Seasonal Allergies: No Past Medical History Surgeries: Yes (knee arthroscopy, removal superficial implant, shoulder fx tx, ankle fx tx,) Hysterectomy, Joint Replacement, Orthopedic Respiratory: Yes (Chronic airway obstruction) Pneumonia, COPD Cardiac: Yes (CAD, chest pain, unspecified essential hypertension, chest wall pain) High Cholesterol, Hypertension Neurological: Yes Headaches /Migraines, TIA Reproductive Disorders: No Genitourinary: Yes (Urinary tract infection) Renal Failure Pancreatitis Musculoskeletal: Yes (herniated intervetebral disk, chronic knee pain, chronic neck pain, back pa) Osteoporosis, Fibromyalgia Endocrine: Yes (hypokalemia, hypomagnesemia) HEENT: No Cataract, Eye Injury Cancer: Yes Psychosocial: Yes (chronic narcotic dependence, drug-seeking behavior, excessive somnolence di) Anxiety Integumentary: No Blood Disorders: Yes (anemia) Physical Exam Vital Signs Vital Signs - First Documented 04/12/19 11:31 Temp 35.0 Pulse 82 Resp 16 B/P (MAP) 162/96 (118) Pulse Ox 97 O2 Delivery Room Air Capillary Refill : Height, Weight, BMI Height: 5'7.00" Weight: 152lbs. 7.0oz. [id number]; 24.00 BMI Method:Stated General Appearance: no apparent distress, other (unresponsive, awakes to painful stimuli, follows a few commands) HEENT: other (dry mucous membranes, patent nose. Pupils @ 3mm and sluggish) Neck: supple, normal inspection Respiratory: lungs clear, normal breath sounds, no respiratory distress Cardiovascular: regular rate, rhythm, no edema, no gallop, tachycardia Gastrointestinal: normal bowel sounds, non tender, soft; No distended, No guarding, No rebound, No tenderness Extremities: normal inspection, no pedal edema, no calf tenderness, normal capillary refill Neurologic/Psychiatric: other (decreased responsiveness. ) Skin: normal color, warm/dry Lymphatic: no adenopathy Focused Exam Lactate Level 04/12/19 13:28: Lactic Acid Level 1.04 Lactic Acid Level Laboratory Tests Test 04/12/19 13:28 Lactic Acid Level 1.04 MMOL/L (0.50-2.00) Progress/Results/Core Measures Results/Orders Lab Results Laboratory Tests Test 04/12/19 12:34 04/12/19 12:42 04/12/19 13:28 Range/Units White Blood Count 6.9 4.3-11.0 10^3/uL Red Blood Count 4.50 4.35-5.85 10^6/uL Hemoglobin 12.9 11.5-16.0 G/DL Hematocrit 40 35-52 % Mean Corpuscular Volume 88 80-99 FL Mean Corpuscular Hemoglobin 29 25-34 PG Mean Corpuscular Hemoglobin Concent 33 32-36 G/DL Red Cell Distribution Width 13.4 10.0-14.5 % Platelet Count 172 130-400 10^3/uL Mean Platelet Volume 9.6 7.4-10.4 FL Neutrophils (%) (Auto) 75 42-75 % Lymphocytes (%) (Auto) 19 12-44 % Monocytes (%) (Auto) 3 0-12 % Eosinophils (%) (Auto) 1 0-10 % Basophils (%) (Auto) 1 0-10 % Neutrophils # (Auto) 5.2 1.8-7.8 X 10^3 Lymphocytes # (Auto) 1.3 1.0-4.0 X 10^3 Monocytes # (Auto) 0.2 0.0-1.0 X 10^3 Eosinophils # (Auto) 0.1 0.0-0.3 10^3/uL Basophils # (Auto) 0.1 0.0-0.1 10^3/uL Prothrombin Time 13.7 12.2-14.7 SEC INR Comment 1.0 0.8-1.4 Activated Partial Thromboplast Time 27 24-35 SEC Sodium Level 142 135-145 MMOL/L Potassium Level 3.9 3.6-5.0 MMOL/L Chloride Level 110 H 98-107 MMOL/L Carbon Dioxide Level 20 L 21-32 MMOL/L Anion Gap 12 5-14 MMOL/L Blood Urea Nitrogen 22 H 7-18 MG/DL Creatinine 0.78 0.60-1.30 MG/DL Estimat Glomerular Filtration Rate > 60 BUN/Creatinine Ratio 28 Glucose Level 112 H 70-105 MG/DL Calcium Level 8.5 8.5-10.1 MG/DL Corrected Calcium 8.7 8.5-10.1 MG/DL Total Bilirubin 0.2 0.1-1.0 MG/DL Aspartate Amino Transf (AST/SGOT) 19 5-34 U/L Alanine Aminotransferase (ALT/SGPT) 13 0-55 U/L Alkaline Phosphatase 73 40-136 U/L Troponin I < 0.30 <0.30 NG/ML Total Protein 6.3 L 6.4-8.2 GM/DL Albumin 3.7 3.2-4.5 GM/DL Serum Alcohol < 10 <10 MG/DL Urine Color YELLOW Urine Clarity CLEAR Urine pH 7.0 5-9 Urine Specific [place] 1.015 L 1.016-1.022 Urine Protein NEGATIVE NEGATIVE Urine Glucose (UA) NEGATIVE NEGATIVE Urine Ketones NEGATIVE NEGATIVE Urine Nitrite NEGATIVE NEGATIVE Urine Bilirubin NEGATIVE NEGATIVE Urine Urobilinogen 0.2 < = 1.0 MG/DL Urine Leukocyte Esterase NEGATIVE NEGATIVE Urine RBC (Auto) TRACE H NEGATIVE Urine RBC 0-2 /HPF Urine WBC NONE /HPF Urine Crystals NONE /LPF Urine Bacteria NONE /HPF Urine Casts NONE /LPF Urine Mucus NEGATIVE /LPF Urine Culture Indicated NO Urine Opiates Screen NEGATIVE NEGATIVE Urine Oxycodone Screen NEGATIVE NEGATIVE Urine Methadone Screen NEGATIVE NEGATIVE Urine Propoxyphene Screen NEGATIVE NEGATIVE Urine Barbiturates Screen NEGATIVE NEGATIVE Ur Tricyclic Antidepressants Screen POSITIVE H NEGATIVE Urine Phencyclidine Screen NEGATIVE NEGATIVE Urine Amphetamines Screen NEGATIVE NEGATIVE Urine Methamphetamines Screen NEGATIVE NEGATIVE Urine Benzodiazepines Screen POSITIVE H NEGATIVE Urine Cocaine Screen NEGATIVE NEGATIVE Urine Cannabinoids Screen NEGATIVE NEGATIVE Lactic Acid Level 1.04 0.50-2.00 MMOL/L My Orders Orders - JUAN JOSE BURCH DO Ct Head Wo (04/12/19 11:36) Ed Iv/Invasive Line Start (04/12/19 11:36) Ekg Tracing (04/12/19 11:36) Chest 1 View Ap/Pa Only (04/12/19 11:36) Troponin I Fs (04/12/19 11:36) Urinalysis (04/12/19 11:36) Partial Thromboplastin Time (04/12/19 11:36) Protime With Inr (04/12/19 11:36) Cbc With Automated Diff (04/12/19 11:36) Alcohol (04/12/19 11:36) Comprehensive Metabolic Panel (04/12/19 11:36) Drug Screen Stat (Urine) (04/12/19 11:36) Lactic Acid Analyzer (04/12/19 11:36) Ns Iv 500 Ml (Sodium Chloride 0.9%) (04/12/19 11:45) Vital Signs/I&O 04/12/19 11:31 Temp 35.0 Pulse 82 Resp 16 B/P (MAP) 162/96 (118) Pulse Ox 97 O2 Delivery Room Air Progress Progress Note : Time: 13:27 Progress Note Reevaluation of patient, still arousable with loud voice and gentle touch, however still quite somnolent and and appears to not be able to stay awake. Discussed status with patient, normal CT without acute bleed and relatively normal labs. Patient's son, who is the POA since patient has in the past had similar problems when taking gabapentin. Her caregiver, who is also her sister states that she sometimes takes too much lorazepam as she forgets if she took it or not. * Noted UDS + for TCA and BZD Initial ECG Impression Time: 12:00 Initial ECG Rate: 80 Initial ECG Rhythm: Normal Sinus Initial ECG Intervals: Normal Initial ECG Impression: Normal Initial ECG Comparisson: No Previous ECG Available Departure Communication (Admissions) Time/Spoke to Admitting Phy: 14:05 Discussed pt PMHX and HPI presenting via EMS w decreased level of consciousness. Arousable, but somnulent. NO obvious Neuro deficit. Unable to stay awake, attempts to talk, but incomprehensible. Able to follow some commands and moving all 4 extremities without obvious weakness. Impression Primary Impression: Altered mental status Qualified Codes: R41.82 - Altered mental status, unspecified Disposition: ADMITTED INPATIENT Condition: Stable Admissions Decision to Admit Reason: Admit from ER (General) Decision to Admit/Date: Apr 12, 2019 Time/Decision to Admit Time: 13:00 Departure-Patient Inst. Referrals: LAURY MAN MD (PCP/Family) Primary Care Physician JUAN JOSE BURCH DO Apr 12, 2019 11:43
[2019-04-12] MEDS ORDERED: NS IV 500 ML 500 ML IV SCH (11:45)
--- NOTE | 2019-04-12 11:58 | Diagnostic Imaging Report ---
Indication: Patient unresponsive KUB 11:50 AM Heart and mediastinum are normal. Lungs are clear. There are no effusions or pneumothoraces. IMPRESSION: Negative chest Dictated by: Dictated on workstation # [id number]
--- NOTE | 2019-04-12 12:29 | Diagnostic Imaging Report ---
PROCEDURE: CT head without contrast. TECHNIQUE: Multiple contiguous axial images were obtained through the brain without the use of intravenous contrast. Auto Exposure Controls were utilized during the CT exam to meet ALARA standards for radiation dose reduction. INDICATION: Unresponsive. There is no mass, shift of midline or hemorrhage to suggest an acute intracranial abnormality. 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 The cortical atrophy noted the prior exam has not progressed. The ventricles are stable in size. The bone windows show no evidence for a fracture or for a destructive lesion. The orbits are symmetrical and within normal limits. The sinuses are generally clear. The inferior most portion of the maxillary sinuses were not included on this exam however. IMPRESSION: 1. There is no evidence of an acute intracranial abnormality. 2. If clinical concern regarding an underlying abnormality persists and further imaging is desired, then MRI would be recommended. Dictated by: Dictated on workstation # [id number]
[2019-04-12 12:38] LABS: HEMATOCRIT 40 % (35-52); HEMOGLOBIN 12.9 G/DL (11.5-16.0); MEAN CORPUSCULAR HEMOGLOBIN 29 PG (25-34); MEAN CORPUSCULAR VOLUME 88 FL (80-99); WHITE BLOOD COUNT 6.9 10^3/uL (4.3-11.0)
[2019-04-12 12:39] LABS: BASOPHILS # (AUTO) 0.1 10^3/uL (0.0-0.1); BASOPHILS % (AUTO) 1 % (0-10); EOSINOPHILS # (AUTO) 0.1 10^3/uL (0.0-0.3); EOSINOPHILS % (AUTO) 1 % (0-10); LYMPHOCYTES # (AUTO) 1.3 X 10^3 (1.0-4.0); LYMPHOCYTES % (AUTO) 19 % (12-44); MEAN CORPUSCULAR HGB CONC 33 G/DL (32-36); MEAN PLATELET VOLUME 9.6 FL (7.4-10.4); MONOCYTES # (AUTO) 0.2 X 10^3 (0.0-1.0); MONOCYTES % (AUTO) 3 % (0-12); NEUTROPHILS # (AUTO) 5.2 X 10^3 (1.8-7.8); NEUTROPHILS % (AUTO) 75 % (42-75); PLATELET COUNT 172 10^3/uL (130-400); RED CELL DISTRIBUTION WIDTH 13.4 % (10.0-14.5)
[2019-04-12 12:55] LABS: CLARITY,URINE CLEAR; COLOR,URINE YELLOW
[2019-04-12 12:56] LABS: BILIRUBIN,URINE NEGATIVE (NEGATIVE); GLUCOSE, URINE (UA) NEGATIVE (NEGATIVE); KETONES,URINE NEGATIVE (NEGATIVE); LEUKOCYTE ESTERASE ,URINE NEGATIVE (NEGATIVE); NITRITE,URINE NEGATIVE (NEGATIVE); PROTEIN,URINE NEGATIVE (NEGATIVE); RBC,URINE 0-2 /HPF
[2019-04-12 12:58] LABS: BUN/CREATININE RATIO 28; CARBON DIOXIDE 20 MMOL/L (21-32); CHLORIDE 110 MMOL/L (98-107); CREATININE SERUM 0.78 MG/DL (0.60-1.30); GFR ESTIMATED > 60; POTASSIUM 3.9 MMOL/L (3.6-5.0); SODIUM 142 MMOL/L (135-145)
[2019-04-12 12:59] LABS: ALANINE AMINOTRANSFERASE 13 U/L (0-55); ALKALINE PHOSPHATASE 73 U/L (40-136); BILIRUBIN,TOTAL 0.2 MG/DL (0.1-1.0); CALCIUM 8.5 MG/DL (8.5-10.1); GLUCOSE 112 MG/DL (70-105)
[2019-04-12 13:00] LABS: ALBUMIN 3.7 GM/DL (3.2-4.5); TOTAL PROTEIN 6.3 GM/DL (6.4-8.2)
[2019-04-12 13:26] LABS: PROTHROMBIN TIME PATIENT 13.7 SEC (12.2-14.7)
[2019-04-12 13:27] LABS: AMPHETAMINE SCREEN, URINE NEGATIVE (NEGATIVE); BARBITURATE SCREEN URINE NEGATIVE (NEGATIVE); BENZODIAZEPINES SCREEN URINE POSITIVE (NEGATIVE); CANNABINOID SCREEN, URINE NEGATIVE (NEGATIVE); COCAINE SCREEN URINE NEGATIVE (NEGATIVE); METHADONE STAT NEGATIVE (NEGATIVE); METHAMPHETAMINE SCREEN URINE S NEGATIVE (NEGATIVE); OPIATE SCREEN URINE NEGATIVE (NEGATIVE); OXYCODONE STAT NEGATIVE (NEGATIVE); PROPOXYPHENE STAT NEGATIVE (NEGATIVE); TRICYCLIC ANTIDEPRESSANTS SCRE POSITIVE (NEGATIVE)
--- NOTE | 2019-04-12 16:05 | NUR ---
NORBERT DOMINGUEZ admitted to room 405-1, with an admitting diagnosis of CHANGE IN MENTAL STATUS, SUSPECTED OVERDOSE, on 04/12/19 from [place] [facility] via [facility], accompanied by [facility]. NORBERT DOMINGUEZ introduced to surroundings, call light, bed controls, phone, TV, temperature control, lights, meal times, smoking policy, visitor policy, side rail policy, bathrooms and showers. Patient Rights given to patient in the handbook. NORBERT DOMINGUEZ verbalizes understanding that [facility] is not responsible for the loss or damage to any personal effects or valuables that are kept in the patients possession during their hospitalization. The following Patient Care Plans were discussed with the PATIENT AND HER ADULT SON: Discharge Planning, CHANGE IN MENTAL STATUS, SUBSTANCE ABUSE, and KNOWLEDGE DEFICIT. ALBERTONORBERT Curtis verbalizes understanding of Interdisciplinary Patient Education. Patient and/or family were informed about the Rapid Response Team and its purpose.
[2019-04-12] MEDS ORDERED: CATHETER FLUSH 10 ML SYR IV PRN (16:45)
[2019-04-12] MEDS: NS IV 1000 ML 1,000 ML IV SCH (16:56)
--- NOTE | 2019-04-12 17:56 | NUR ---
THE PATIENT'S SON IS CONCERNED ABOUT THE WAY HIS MOTHER IS HOLDING HER FORK. HE ISN'T SURE IF THE REASON IS A STROKE OR TOO MUCH OF HER MEDICATION. HE IS WORRIED THAT SHE HAD A STROKE.
[2019-04-12] MEDS ORDERED: ACETAMINOPHEN 325 MG TABLET PO PRN (18:15)
[2019-04-12] MEDS ORDERED: ANTACID SUSP 30 ML UDC (MYLANTA) PO PRN (18:15)
[2019-04-12] MEDS ORDERED: ONDANSETRON 4 MG (ZOFRAN) ORAL DISSOLVE TAB PO PRN (18:15)
[2019-04-12] MEDS ORDERED: MELATONIN 3 MG TABLET PO PRN (18:15)
[2019-04-12] MEDS ORDERED: polyethylene glycoL POWDER 17 GM (MIRALAX) PACK PO PRN (18:15)
[2019-04-12 19:36] VITALS: BP 149/73
[2019-04-12 20:00] VITALS: BP 130/76
[2019-04-13 00:30] VITALS: BP 138/81
[2019-04-13] MEDS: NS IV 1000 ML 1,000 ML IV SCH (02:36)
[2019-04-13 04:00] VITALS: BP 138/81
[2019-04-13 07:30] VITALS: BP 152/69
--- NOTE | 2019-04-13 10:13 | Physical Therapy Evaluation ---
PT Evaluation-General Medical Diagnosis Admission Date Apr 12, 2019 at 14:44 Medical Diagnosis: AMS/ suspected overdose Onset Date: Apr 12, 2019 Therapy Diagnosis Therapy Diagnosis: Deconditioning Height/Weight Height (Feet): 5 Height (Inches): 7.00 Weight (Pounds): 152 Weight (Ounces): 7.0 Precautions Precautions/Isolations: Fall Prevention, Standard Precautions Weight Bear Status Right Lower Extremity: Right Weight Bearing/Tolerated Left Lower Extremity: Left Weight Bearing/Tolerated Referral Physician: Olga Lidia Reason for Referral: Evaluation/Treatment Medical History Pertinent Medical History: CAD, COPD, CVA (1 year ago), GERD, Heart Failure, HTN, Renal Insufficiency Additional Medical History Pancreatitis, osteoporosis, fibromyalgia, anxiety Current History Patient presented to ER via EMS, unresponsive. Reviewed History: Yes Social History Home: Single Level Current Living Status: Other Family (Sister) Entry Into Home: Ramp Prior Prior Level of Function SCALE: Activities may be completed with or without assistive devices. 5-Zdrctlzpbj-hxkzbpv completes the activity by him/herself with no assistance from a helper. 5-Set-up or Clean-up Assistance-helper sets up or cleans up; patient completes activity. [place] assists only prior to or following the activity. 4-Supervision or Touching Assistance-helper provides verbal cues and/or touching/steadying and/or contact guard assistance as patient completes activity. Assistance may be provided throughout the activity or intermittently. 3-Partial/Moderate Assistance-helper does LESS THAN HALF the effort. [place] lifts, holds or supports trunk or limbs, but provides less than half the effort. 2-Substantial/Maximal Assistance-helper does MORE THAN HALF the effort. [place] lifts or holds trunk or limbs and provides more than half the effort. 1-Oztbiymkp-xpplfe does ALL the effort. Patient does none of the effort to complete the activity. Or, the assistance of 2 or more helpers is required for the patient to complete the activity. If activity was not attempted, code reason: 7-Patient Refused. 9-Not Applicable-not attempted and the patient did not perform the activity before the current illness, exacerbation or injury. 10-Not Attempted due to Environmental Limitations-(lack of equipment, weather restraints, etc.). 88-Not Attempted due to Medical Conditions or Safety Concerns. Bed Mobility: 6 Transfers (B,C,W/C): 6 Gait: 6 Stairs: 6 Indoor Mobility (Ambulation): Independent Stairs: Independent Prior Devices Use: None PT Evaluation-Current Subjective Patient agreeable to therapy at this time. Objective Patient Orientation: Person, Place, Time Attachments: IV ROM/Strength ROM Lower Extremities WNL BLE Strength Lower Extremities 4 / 5 gross BLE Integumentary/Posture Integumentary See nursing notes. Bowel Incontinence: No Bladder Incontinence: No Neuromuscular (Tone, Coordination, Reflexes) grossly intact. Sensory Vision: Functional Hearing: Functional Sensation Right Lower Extremit: Intact Sensation Left Lower Extremity: Intact Transfers Roll Left to Right (QC): 6 Lying to Sitting/Side of Bed(Q: 6 Sit to Stand (QC): 4 Chair/Wgz-ep-Sniju Xfer(QC): 4 Gait Does the Patient Walk?: Yes Mode of Locomotion: Walk Anticipated Mode of Locomotion: Walk Walk 10 feet (QC): 4 Walk 50 ft with 2 Turns(QC): 4 Walk 150 ft (QC): 4 Distance: 160' Gait Assistive Device: FWW Comments/Gait Description Patient is steady during ambulation, walks with normal gait sequence. Wheelchair Training Does the Pt Use a Wheelchair?: No Balance Sitting Static: Good Sitting Dynamic: Good Standing Static: Good Standing Dynamic: Good Assessment/Needs Patient ambulates with a normal gait sequence and is stable. Patient is able to perform bed mobility IND. Patient don socks IND. Patient will benefit from short term skilled therapy to reach maximum LOF. Rehab Potential: Good PT Er Medical Technician Goals Er Medical Technician Goals PT Er Medical Technician Goals Time Frame: Apr 20, 2019 Roll Left & Right (QC): 6 Sit to Lying (QC): 6 Lying-Sitting on Side/Bed(QC): 6 Sit to Stand (QC): 6 Chair/Wrm-pa-Fxsry Xfer(QC): 6 Toilet Transfer (QC): 6 Does the Patient Walk: Yes Walk 10 feet (QC): 6 Walk 50ft with 2 Turns (QC): 6 Walk 150 ft (QC): 6 PT Plan Problem List Problem List: Activity Tolerance, Functional Strength, Safety, Balance, Gait, Transfer, Bed Mobility, ROM Treatment/Plan Treatment Plan: Continue Plan of Care Treatment Plan: Bed Mobility, Education, Functional Activity Oscar, Functional Strength, Gait, Safety, Therapeutic Exercise, Transfers Treatment Duration: Apr 20, 2019 Frequency: 5 times per week Estimated Hrs Per Day: .25 hour per day Patient and/or Family Agrees t: Yes Safety Risks/Education Patient Education: Gait Training, Transfer Techniques Teaching Recipient: Patient Teaching Methods: Demonstration, Discussion Response to Teaching: Reinforcement Needed Discharge Recommendations Therapy Discharge Recommendati: Home & Family Time/GCodes Time In: 930 Time Out: 942 Total Billed Treatment Time: 12 Total Billed Treatment 1 visit EVL 12 MARGARITO GREEN PT Apr 13, 2019 10:13
[2019-04-13] MEDS ORDERED: GBPN600T PO (11:57)
[2019-04-13 12:07] VITALS: BP 129/62
--- NOTE | 2019-04-13 13:16 | Occupational Therapy Eval ---
OT Evaluation-General/PLF Medical Diagnosis Admission Date Apr 12, 2019 at 14:44 Medical Diagnosis: AMS/ suspected overdose Onset Date: Apr 12, 2019 Therapy Diagnosis Therapy Diagnosis: decreased self care skills Height/Weight Height (Feet): 5 Height (Inches): 7.00 Weight (Pounds): 152 Weight (Ounces): 7.0 Precautions Precautions/Isolations: Fall Prevention, Standard Precautions Safety Interventions: Bed Exit Alarm Referral Physician: Olga Lidia Medical History Pertinent Medical History: CAD, COPD, CVA (1 year ago), GERD, Heart Failure, HTN, Renal Insufficiency Additional Medical History high cholesterol, headaches/migraines, pancreatitis, osteoporosis, fibromyalgia, anxiety Current History Pt presented to hospital with AMS Social History Home: Single Level Current Living Status: Other Family (Sister) Entry Into Home: [facility] ADL-Prior Level of Function SCALE: Activities may be completed with or without assistive devices. 1-Qgtvspmvsm-junfrjk completes the activity by him/herself with no assistance from a helper. 5-Set-up or Clean-up Assistance-helper sets up or cleans up; patient completes activity. [place] assists only prior to or following the activity. 4-Supervision or Touching Assistance-helper provides verbal cues and/or touching/steadying and/or contact guard assistance as patient completes activity. Assistance may be provided throughout the activity or intermittently. 3-Partial/Moderate Assistance-helper does LESS THAN HALF the effort. [place] lifts, holds or supports trunk or limbs, but provides less than half the effort. 2-Substantial/Maximal Assistance-helper does MORE THAN HALF the effort. [place] lifts or holds trunk or limbs and provides more than half the effort. 9-Eardcvogb-ccfyvi does ALL the effort. Patient does none of the effort to complete the activity. Or, the assistance of 2 or more helpers is required for the patient to complete the activity. If activity was not attempted, code reason: 7-Patient Refused. 9-Not Applicable-not attempted and the patient did not perform the activity before the current illness, exacerbation or injury. 10-Not Attempted due to Environmental Limitations-(lack of equipment, weather restraints, etc.). 88-Not Attempted due to Medical Conditions or Safety Concerns. ADL PLOF Comments Pt reports being independent with basic self care skills. Sister is available to assist as needed. Uses walker or cane for mobility. States she often has someone walk with her secondary to decreased balance from prior CVA. Pt states her sister does the housework. DME/Equipment: Tall Toilet, Tub/Shower Drive Self: No OT Current Status Subjective Pt resting in bed, agrees to therapy. Mental Status/Objective Patient Orientation: Person, Place Attachments: IV Current Glasses/Contacts: Yes Dentures/Partials: Yes Hand Dominance: Left Upper Extremity ROM Grossly WFL Upper Extremity Coordination Fair ADL-Treatment ADL-Current Pt supine to sit with SBA. Sat EOB with good balance during UE assessment. Pt reports feeding herself without assist. Pt doffed/donned sock with SBA. Sit to stand with supervision. Denied need to use restroom at this time, states she has been up with assist. Pt completed sit to supine with SBA. Resting in bed with needs met and bed alarm on after session. Eating (QC): 6 (per pt report) On/Off Footwear (QC): 5 Education OT Patient Education: Rehab process Teaching Recipient: Patient Teaching Methods: Discussion Response to Teaching: Verbalize Understanding OT Airdrop Systems Technician Goals Correction Goals Time Frame: Apr 20, 2019 Oral Hygiene (QC): 6 Toileting Hygiene (QC): 6 Shower/Bathe Self (QC): 5 Upper Body Dressing (QC): 6 Lower Body Dressing (QC): 6 On/Off Footwear (QC): 6 Additional Goals: 1-Demonstrate ADL Tasks, 2-Verbalize Understanding, 3- ImproveStrength/Oscar 1=Demonstrate adherence to instructed precautions during ADL tasks. 2=Patient will verbalize/demonstrate understanding of assistive devices/modifications for ADL. 3=Patient will improve strength/tolerance for activity to enable patient to perform ADL's. OT Education/Plan Problem List/Assessment Assessment: Decreased Activ Tolerance, Decreased UE Strength, Dependent Transfers, Impaired Self-Care Skills Pt to benefit from skilled OT intervention while hospitalized to maximize level of function and allow safe discharge home. Discharge Recommendations Plan/Recommendations: Continue POC Treatment Plan/Plan of Care Treatment,Training & Education: Yes Patient would benefit from OT for education, treatment and training to promote independence in ADL's, mobility, safety and/or upper extremity function for ADL's. Plan of Care: ADL Retraining, Functional Mobility, UE Funct Exercise/Act Treatment Duration: Apr 20, 2019 Frequency: 5 times per week Estimated Hrs Per Day: .25 hour per day Rehab Potential: Good Time/GCodes Start Time: 11:45 Stop Time: 11:57 Total Time Billed (hr/min): 12 Billed Treatment Time 1 visit, RENEE(12minutes) BAKARI CAZARES OT Apr 13, 2019 13:16
--- NOTE | 2019-04-13 14:41 | Discharge Summary ---
Discharge Summary Hospital Course Was the Problem List Reviewed?: Yes Hospital Course Date of Admission: Apr 12, 2019 at 14:44 Admission Diagnosis : Altered mental status Family Physician/Provider: Nirali,Local Physician Date of Discharge: 04/13/19 Discharge Diagnosis: Adverse effect of gabapentin Hospital Course: Cesar Cartwright is a 73-year-old female who presented with altered mental status. All of her medications were held and her mentation improved. It was thought that her gabapentin was the cause of her sedation. She also takes amitriptyline and lorazepam which could've also contributed to her decreased level of consciousness. Her dose of gabapentin was decreased to twice daily on discharge. She should follow-up with her primary care physician. Labs and Pending Lab Test: Home Meds Active Gabapentin 600 Mg Tablet 600 Mg PO BID 30 Days Reported Albuterol Sulfate 2.5 Mg/3 Ml Vial.neb 2.5 Mg NEB Q6H PRN Combivent Respimat Inhal [place] (Albuterol/Ipratropium) 4 Gm Aero 2 Puff INH QID PRN Diphenoxylate-Atrop 2.5-0.025 (Diphenoxylate HCl/Atropine) 1 Each Tablet 2 Tab PO QID PRN Ranitidine HCl 150 Mg Tablet 150 Mg PO BID Lansoprazole 30 Mg Capsule.dr 30 Mg PO DAILY Wal-Phed (Pseudoephedrine HCl) 30 Mg Tablet 30 Mg PO Q4H PRN Hydroxyzine HCl 25 Mg Tablet 25 Mg PO QID PRN Amitriptyline HCl 50 Mg Tablet 50 Mg PO HS Clopidogrel (Clopidogrel Bisulfate) 75 Mg Tablet 75 Mg PO DAILY Sumatriptan Succinate 100 Mg Tablet 100 Mg PO UD [facility]N [facility] Promethazine Tablet (Promethazine HCl) 25 Mg Tablet 25 Mg PO TID PRN Lorazepam 1 Mg Tablet 0.5 Mg PO DAILY TAKES 1/2 (1MG) TABLET Oxycodone HCl 10 Mg Tablet 10-20 Mg PO QID PRN Lisinopril 20 Mg Tablet 10 Mg PO BID TAKES 1/2 (20MG) TABLET Lorazepam 1 Mg Tablet 1 Mg PO HS Assessment/Pt Instructions Take medications as prescribed. Decrease her dose of gabapentin. Follow up with her primary care physician. Discharge Planning: <30 minutes discharge planning Discharge Instructions Discharge Diet: No Restrictions Activity as Tolerated: Yes Pneumonia Vaccine Order Indica: Yes Discharge Physical Examination Vital Signs Vital Signs Date Time Temp Pulse Resp B/P (MAP) Pulse Ox O2 Delivery O2 Flow Rate FiO2 04/13/19 12:10 85 04/13/19 12:07 36.9 18 129/62 (84) 94 Room Air General Appearance: No Apparent Distress, WD/WN Respiratory: Lungs Clear, Normal Breath Sounds, No Respiratory Distress Cardiovascular: Regular Rate, Rhythm, No Edema, No Murmur Gastrointestinal: Normal Bowel Sounds, Non Tender, Soft Extremity: Normal Inspection, Non Tender, No Pedal Edema Skin: Normal Color, Warm/Dry Neurologic/Psychiatric: Alert, Oriented x3, No Motor/Sensory Deficits, Normal Mood/Affect Allergies: Coded Allergies: amylase (Unverified Allergy, Mild, 05/04/10) aspirin (Unverified Allergy, Mild, 08/09/08) flurbiprofen (Unverified Allergy, Mild, 07/23/08) lipase (Unverified Allergy, Mild, 05/04/10) protease (Unverified Allergy, Mild, 05/04/10) NSAIDS (Non-Steroidal Anti-Inflamma (Verified Allergy, Unknown, 10/02/06) Penicillins (Verified Allergy, Unknown, 10/02/06) Sulfa (Sulfonamide Antibiotics) (Verified Allergy, Unknown, 10/02/06) chlorhexidine (Verified Allergy, Unknown, RASH/SORES, 07/23/18) rofecoxib (Verified Allergy, Unknown, 10/02/06) tramadol (Verified Allergy, Unknown, PT CAN TAKE MORPHINE WITHOUT PROBLEM, 10/02/06) trazodone (Verified Allergy, Unknown, 10/02/06) alprazolam (Unverified Adverse Reaction, Unknown, 10/02/13) STATES MAKES HER "LOOPY" diazepam (Unverified Adverse Reaction, Unknown, 10/02/13) STATES IT MAKES HER "LOOPY" Discharge Summary Date of Admission Apr 12, 2019 at 14:44 Date of Discharge Discharge Date: Apr 13, 2019 Discharge Time: 14:40 Admission Diagnosis Altered mental status Discharge Diagnosis Adverse reaction to gabapentin (1) Gabapentin adverse reaction Status: Acute Qualifiers: Qualified Codes: T42.6X5A - Adverse effect of other antiepileptic and sedative-hypnotic drugs, initial encounter Clinical Quality Measures DVT/VTE Risk/Contraindication: Risk Factor Score Per Nursin RFS Level Per Nursing on Admit: 2=Moderate SVEN,BABATUNDE M MD Apr 13, 2019 14:41
== END 2019-04-13 13:05 | disposition home or self-care (01) ==
LOC: EDUNIT# 11:31 → ER FS 11:32 → 4TH 14:44
PROVIDERS: ADMIT Internal Medicine; ATTEND Internal Medicine
DX: R41.82 Altered mental status, unspecified (principal); T42.6X5A Adverse effect of other antiepileptic and sedative-hypnotic drugs, initial encounter; J44.9 Chronic obstructive pulmonary disease, unspecified; I25.10 Atherosclerotic heart disease of native coronary artery without angina pectoris; I10 Essential (primary) hypertension; E78.00 Pure hypercholesterolemia, unspecified; M81.0 Age-related osteoporosis without current pathological fracture; M79.7 Fibromyalgia; F41.9 Anxiety disorder, unspecified; F11.20 Opioid dependence, uncomplicated; Z79.899 Other long term (current) drug therapy; Z88.0 Allergy status to penicillin; Z88.2 Allergy status to sulfonamides; Z96.659 Presence of unspecified artificial knee joint; Z86.73 Personal history of transient ischemic attack (TIA), and cerebral infarction without residual deficits
CPT/HCPCS: 36415; 70450; 71045; 80053; 80306; 80320; 81000; 83605; 84484; 85025; 85610; 85730; 93005

== ENCOUNTER 2019-10-02 01:17 | Emergency (ER) | payer MEDICAID ==
[~2019-10-02] VITALS: Ht 167.7 cm; Wt 83.0 kg
--- NOTE | 2019-10-02 01:41 | ED General ---
General Chief Complaint: General Problems/Pain Stated Complaint: CONFUSION Source of Information: Patient, EMS, Family History of Present Illness Date Seen by Provider: Oct 02, 2019 Time Seen by Provider: 01:30 Initial Comments 74-year-old female presents via EMS without any complaint. Lives at home with her son who called EMS because he thought she had taken too much of her medication. Patient with known rx's: narcotics, gabapentin and benzodiazepines. On arrival patient awake, slightly confused but alert. Allergies and Home Medications Allergies Coded Allergies: amylase (Unverified Allergy, Mild, 05/04/10) aspirin (Unverified Allergy, Mild, 08/09/08) flurbiprofen (Unverified Allergy, Mild, 07/23/08) lipase (Unverified Allergy, Mild, 05/04/10) protease (Unverified Allergy, Mild, 05/04/10) NSAIDS (Non-Steroidal Anti-Inflamma (Verified Allergy, Unknown, 10/02/06) Penicillins (Verified Allergy, Unknown, 10/02/06) Sulfa (Sulfonamide Antibiotics) (Verified Allergy, Unknown, 10/02/06) chlorhexidine (Verified Allergy, Unknown, RASH/SORES, 07/23/18) rofecoxib (Verified Allergy, Unknown, 10/02/06) tramadol (Verified Allergy, Unknown, PT CAN TAKE MORPHINE WITHOUT PROBLEM, 10/02/06) trazodone (Verified Allergy, Unknown, 10/02/06) alprazolam (Unverified Adverse Reaction, Unknown, 10/02/13) STATES MAKES HER "LOOPY" diazepam (Unverified Adverse Reaction, Unknown, 10/02/13) STATES IT MAKES HER "LOOPY" Home Medications Albuterol Sulfate 2.5 Mg/3 Ml Vial.neb, 2.5 MG NEB Q6H PRN for SHORTNESS OF BREATH, (Reported) Albuterol/Ipratropium 4 Gm Aero, 2 PUFF INH QID PRN for SHORTNESS OF BREATH, (Reported) Amitriptyline HCl 50 Mg Tablet, 50 MG PO HS, (Reported) Clopidogrel Bisulfate 75 Mg Tablet, 75 MG PO DAILY, (Reported) Diphenoxylate HCl/Atropine 1 Each Tablet, 2 TAB PO QID PRN for DIARRHEA, (Reported) Gabapentin 600 Mg Tablet, 600 MG PO BID Prescribed by: BABATUNDE MACHUCA on 04/13/19 1157 Hydroxyzine HCl 25 Mg Tablet, 25 MG PO QID PRN for ITCHING, (Reported) Lansoprazole 30 Mg Capsule.dr, 30 MG PO DAILY, (Reported) Lisinopril 20 Mg Tablet, 10 MG PO BID, (Reported) TAKES 1/2 (20MG) TABLET Lorazepam 1 Mg Tablet, 1 MG PO HS, (Reported) Lorazepam 1 Mg Tablet, 0.5 MG PO DAILY, (Reported) TAKES 1/2 (1MG) TABLET Oxycodone HCl 10 Mg Tablet, 10-20 MG PO QID PRN for PAIN-SEVERE, (Reported) Promethazine HCl 25 Mg Tablet, 25 MG PO TID PRN for NAUSEA/VOMITING-2ND LINE, (Reported) Pseudoephedrine HCl 30 Mg Tablet, 30 MG PO Q4H PRN for CONGESTION, (Reported) Ranitidine HCl 150 Mg Tablet, 150 MG PO BID, (Reported) Sumatriptan Succinate 100 Mg Tablet, 100 MG PO UD PRN for MIGRAINE, (Reported) [facility] Patient Home Medication List Home Medication List Reviewed: Yes Review of Systems Review of Systems Constitutional: No dizziness, No fever, No malaise, No weakness EENTM: no symptoms reported Respiratory: No cough, No short of breath Cardiovascular: No chest pain, No palpitations Gastrointestinal: No abdominal pain, No vomiting Musculoskeletal: no symptoms reported Skin: no symptoms reported Psychiatric/Neurological: See HPI, Other (slight confusion and somnolence. Time of arrival 130 a.m.) Past Uvzpsxz-Rlizqo-Jmqhem Hx Past Med/Social Hx: Reviewed Nursing Past Med/Soc Hx Patient Social History Alcohol Use: Denies Use Recreational Drug Use: No Smoking Status: Current Everyday Smoker 2nd Hand Smoke Exposure: No Recent Foreign Travel: No Contact w/Someone Who Travel: No Recent Hopitalizations: No (knee replacement at [facility]) Seasonal Allergies Seasonal Allergies: No Past Medical History Surgeries: Yes (knee arthroscopy, removal superficial implant, shoulder fx tx, ankle fx tx,) Hysterectomy, Joint Replacement, Orthopedic Respiratory: Yes (Chronic airway obstruction) Pneumonia, COPD Cardiac: Yes (CAD, chest pain, unspecified essential hypertension, chest wall pain) High Cholesterol, Hypertension Neurological: Yes Headaches /Migraines, TIA Reproductive Disorders: No Genitourinary: Yes (Urinary tract infection) Renal Failure Pancreatitis Musculoskeletal: Yes (herniated intervetebral disk, chronic knee pain, chronic neck pain, back pa) Osteoporosis, Fibromyalgia Endocrine: Yes (hypokalemia, hypomagnesemia) HEENT: No Cataract, Eye Injury Cancer: Yes Psychosocial: Yes (chronic narcotic dependence, drug-seeking behavior, excessive somnolence di) Anxiety Integumentary: No Blood Disorders: Yes (anemia) Family Medical History Respiratory disorder 19 MOTHER Physical Exam Vital Signs Vital Signs - First Documented 10/02/19 01:33 Temp 36.3 Pulse 90 Resp 16 B/P (MAP) 145/94 (111) Pulse Ox 95 O2 Delivery Room Air Capillary Refill : Height, Weight, BMI Height: 5'7.00" Weight: 152lbs. 7.0oz. [id number]; 24.47 BMI Method:Stated General Appearance: No Apparent Distress, WD/WN Eyes: Bilateral Eye Normal Inspection, Bilateral Eye PERRL, Bilateral Eye EOMI HEENT: PERRL/EOMI, Normal ENT Inspection, Other (edentulous....difficulty understanding her speech) Neck: Non Tender, Supple Respiratory: Chest Non Tender, Lungs Clear Cardiovascular: Regular Rate, Rhythm, No Edema Gastrointestinal: Non Tender, Soft Back: Normal Inspection, No CVA Tenderness, No Vertebral Tenderness Extremity: Normal Capillary Refill, Normal Inspection, Normal Range of Motion, Non Tender, No Calf Tenderness Neurologic/Psychiatric: Alert, Oriented x3, No Motor/Sensory Deficits, Disoriented (slight); No Facial Droop, No Motor Weakness, No Sensory Deficit Skin: Normal Color, Warm/Dry Progress/Results/Core Measures Suspected Sepsis SIRS Temperature: Pulse: Respiratory Rate: Laboratory Tests 10/02/19 01:30: White Blood Count 7.9 Blood Pressure / Mean: Laboratory Tests 10/02/19 01:30: Creatinine 0.99, Platelet Count 178, Total Bilirubin < 0.2 Results/Orders Lab Results Laboratory Tests Test 10/02/19 01:30 10/02/19 01:50 Range/Units White Blood Count 7.9 4.3-11.0 10^3/uL Red Blood Count 4.38 4.35-5.85 10^6/uL Hemoglobin 12.9 11.5-16.0 G/DL Hematocrit 38 35-52 % Mean Corpuscular Volume 86 80-99 FL Mean Corpuscular Hemoglobin 29 25-34 PG Mean Corpuscular Hemoglobin Concent 34 32-36 G/DL Red Cell Distribution Width 13.1 10.0-14.5 % Platelet Count 178 130-400 10^3/uL Mean Platelet Volume 10.8 H 7.4-10.4 FL Neutrophils (%) (Auto) 54 42-75 % Lymphocytes (%) (Auto) 33 12-44 % Monocytes (%) (Auto) 5 0-12 % Eosinophils (%) (Auto) 7 0-10 % Basophils (%) (Auto) 1 0-10 % Neutrophils # (Auto) 4.2 1.8-7.8 X 10^3 Lymphocytes # (Auto) 2.6 1.0-4.0 X 10^3 Monocytes # (Auto) 0.4 0.0-1.0 X 10^3 Eosinophils # (Auto) 0.5 H 0.0-0.3 10^3/uL Basophils # (Auto) 0.1 0.0-0.1 10^3/uL Sodium Level 140 135-145 MMOL/L Potassium Level 3.6 3.6-5.0 MMOL/L Chloride Level 107 98-107 MMOL/L Carbon Dioxide Level 18 L 21-32 MMOL/L Anion Gap 15 H 5-14 MMOL/L Blood Urea Nitrogen 27 H 7-18 MG/DL Creatinine 0.99 0.60-1.30 MG/DL Estimat Glomerular Filtration Rate 55 BUN/Creatinine Ratio 27 Glucose Level 173 H 70-105 MG/DL Calcium Level 9.1 8.5-10.1 MG/DL Corrected Calcium 9.1 8.5-10.1 MG/DL Total Bilirubin < 0.2 0.1-1.0 MG/DL Aspartate Amino Transf (AST/SGOT) 18 5-34 U/L Alanine Aminotransferase (ALT/SGPT) 10 0-55 U/L Alkaline Phosphatase 76 40-136 U/L Total Protein 6.3 L 6.4-8.2 GM/DL Albumin 4.0 3.2-4.5 GM/DL Urine Opiates Screen NEGATIVE NEGATIVE Urine Oxycodone Screen NEGATIVE NEGATIVE Urine Methadone Screen NEGATIVE NEGATIVE Urine Propoxyphene Screen NEGATIVE NEGATIVE Urine Barbiturates Screen NEGATIVE NEGATIVE Ur Tricyclic Antidepressants Screen POSITIVE H NEGATIVE Urine Phencyclidine Screen NEGATIVE NEGATIVE Urine Amphetamines Screen NEGATIVE NEGATIVE Urine Methamphetamines Screen NEGATIVE NEGATIVE Urine Benzodiazepines Screen POSITIVE H NEGATIVE Urine Cocaine Screen NEGATIVE NEGATIVE Urine Cannabinoids Screen NEGATIVE NEGATIVE My Orders Orders - JUAN JOSE BURCH DO Ed Iv/Invasive Line Start (10/02/19 01:35) Cbc With Automated Diff (10/02/19 01:35) Comprehensive Metabolic Panel (10/02/19 01:35) Drug Screen Stat (Urine) (10/02/19 01:35) Vital Signs/I&O 10/02/19 01:33 Temp 36.3 Pulse 90 Resp 16 B/P (MAP) 145/94 (111) Pulse Ox 95 O2 Delivery Room Air Capillary Refill : Departure Impression Primary Impression: Fatigue Qualified Codes: R53.83 - Other fatigue Additional Impression: Altered mental status Qualified Codes: R41.82 - Altered mental status, unspecified Disposition: 01 HOME, SELF-CARE Condition: Stable Departure-Patient Inst. Decision time for Depature: 02:29 Referrals: NO,LOCAL PHYSICIAN (PCP/Family) Primary Care Physician Patient Instructions: Fatigue (DC) Add. Discharge Instructions: see your Primary Doctor in 3 to 4 days regarding your medication dosages. You may have taken too much medication tonight causing your confusion. All discharge instructions reviewed with patient and/or family. Voiced understanding. JUAN JOSE BURCH DO Oct 02, 2019 01:41
[2019-10-02 01:47] LABS: HEMATOCRIT 38 % (35-52); HEMOGLOBIN 12.9 G/DL (11.5-16.0); MEAN CORPUSCULAR HEMOGLOBIN 29 PG (25-34); MEAN CORPUSCULAR HGB CONC 34 G/DL (32-36); MEAN CORPUSCULAR VOLUME 86 FL (80-99); MEAN PLATELET VOLUME 10.8 FL (7.4-10.4); NEUTROPHILS % (AUTO) 54 % (42-75); PLATELET COUNT 178 10^3/uL (130-400); RED CELL DISTRIBUTION WIDTH 13.1 % (10.0-14.5); WHITE BLOOD COUNT 7.9 10^3/uL (4.3-11.0)
[2019-10-02 01:48] LABS: BASOPHILS # (AUTO) 0.1 10^3/uL (0.0-0.1); BASOPHILS % (AUTO) 1 % (0-10); EOSINOPHILS # (AUTO) 0.5 10^3/uL (0.0-0.3); EOSINOPHILS % (AUTO) 7 % (0-10); LYMPHOCYTES # (AUTO) 2.6 X 10^3 (1.0-4.0); LYMPHOCYTES % (AUTO) 33 % (12-44); MONOCYTES # (AUTO) 0.4 X 10^3 (0.0-1.0); MONOCYTES % (AUTO) 5 % (0-12); NEUTROPHILS # (AUTO) 4.2 X 10^3 (1.8-7.8)
[2019-10-02 02:06] LABS: POTASSIUM 3.6 MMOL/L (3.6-5.0); SODIUM 140 MMOL/L (135-145)
[2019-10-02 02:07] LABS: ALANINE AMINOTRANSFERASE 10 U/L (0-55); ALKALINE PHOSPHATASE 76 U/L (40-136); BILIRUBIN,TOTAL < 0.2 MG/DL (0.1-1.0); BUN/CREATININE RATIO 27; CALCIUM 9.1 MG/DL (8.5-10.1); CARBON DIOXIDE 18 MMOL/L (21-32); CHLORIDE 107 MMOL/L (98-107); CREATININE SERUM 0.99 MG/DL (0.60-1.30); GFR ESTIMATED 55; GLUCOSE 173 MG/DL (70-105); TOTAL PROTEIN 6.3 GM/DL (6.4-8.2)
[2019-10-02 02:07] LABS: AMPHETAMINE SCREEN, URINE NEGATIVE (NEGATIVE); BARBITURATE SCREEN URINE NEGATIVE (NEGATIVE); BENZODIAZEPINES SCREEN URINE POSITIVE (NEGATIVE); CANNABINOID SCREEN, URINE NEGATIVE (NEGATIVE); COCAINE SCREEN URINE NEGATIVE (NEGATIVE); METHADONE STAT NEGATIVE (NEGATIVE); METHAMPHETAMINE SCREEN URINE S NEGATIVE (NEGATIVE); OPIATE SCREEN URINE NEGATIVE (NEGATIVE); OXYCODONE STAT NEGATIVE (NEGATIVE); TRICYCLIC ANTIDEPRESSANTS SCRE POSITIVE (NEGATIVE)
[2019-10-02 02:08] LABS: PROPOXYPHENE STAT NEGATIVE (NEGATIVE)
[2019-10-02 02:36] VITALS: BP 137/81
== END 2019-10-02 02:36 | disposition home or self-care (01) ==
LOC: EDUNIT# 01:17 → ER FS 01:21
DX: R53.83 Other fatigue (principal); R41.82 Altered mental status, unspecified; J44.9 Chronic obstructive pulmonary disease, unspecified; I10 Essential (primary) hypertension; I25.10 Atherosclerotic heart disease of native coronary artery without angina pectoris; G43.909 Migraine, unspecified, not intractable, without status migrainosus; M79.7 Fibromyalgia; F41.9 Anxiety disorder, unspecified; G89.29 Other chronic pain; M54.2 Cervicalgia; M25.569 Pain in unspecified knee; F17.200 Nicotine dependence, unspecified, uncomplicated; Z88.8 Allergy status to other drugs, medicaments and biological substances; Z88.2 Allergy status to sulfonamides; Z88.5 Allergy status to narcotic agent; Z86.73 Personal history of transient ischemic attack (TIA), and cerebral infarction without residual deficits; Z88.0 Allergy status to penicillin; Z79.02 Long term (current) use of antithrombotics/antiplatelets
CPT/HCPCS: 36415; 80053; 80306; 85025

== ENCOUNTER 2021-02-21 12:04 | Emergency (ER) | payer MEDICAID ==
[~2021-02-21] VITALS: Ht 170.2 cm; Wt 62.6 kg
[~2021-02-21 12:04] MED LIST changes: -LISI-552 PO; +LISI20TA26 PO
[2021-02-21 12:30] VITALS: BP 155/81
--- NOTE | 2021-02-21 13:13 | Diagnostic Imaging Report ---
INDICATION: Fracture. FINDINGS: There is a comminuted fracture of the mid left 5th metatarsal. There is also a comminuted fracture of the distal left 4th metatarsal. No other fracture or dislocation. There are mild degenerative changes. IMPRESSION: Comminuted fractures of the left 4th and 5th metatarsal as described. Dictated by: Dictated on workstation # [id number]
--- NOTE | 2021-02-21 14:00 | ED Lower Extremity ---
General Chief Complaint: Lower Extremity Stated Complaint: LT FOOT INJ Source: patient Exam Limitations: no limitations History of Present Illness Date Seen by Provider: Feb 21, 2021 Time Seen by Provider: 12:39 Initial Comments Here with left foot pain after injury last . She states that she was stepping up to change a light bulb on a structure and it broke through. Her foot hit a heater and she had pain to the lateral aspect of the foot. She subse quently has bruising to the distal foot. She has been walking on this but pain worsened overnight and she presented today. Denies other injury with the fall. Onset: other (6 days ago) Severity: moderate Pain/Injury Location: left foot Method of Injury: direct blow, fell Modifying Factors: Improves With Immobilization; Worse With Movement Allergies and Home Medications Allergies Coded Allergies: amylase (Unverified Allergy, Mild, 05/04/10) aspirin (Unverified Allergy, Mild, 08/09/08) flurbiprofen (Unverified Allergy, Mild, 07/23/08) lipase (Unverified Allergy, Mild, 05/04/10) protease (Unverified Allergy, Mild, 05/04/10) NSAIDS (Non-Steroidal Anti-Inflamma (Verified Allergy, Unknown, 10/02/06) Penicillins (Verified Allergy, Unknown, 10/02/06) Sulfa (Sulfonamide Antibiotics) (Verified Allergy, Unknown, 10/02/06) chlorhexidine (Verified Allergy, Unknown, RASH/SORES, 07/23/18) rofecoxib (Verified Allergy, Unknown, 10/02/06) tramadol (Verified Allergy, Unknown, PT CAN TAKE MORPHINE WITHOUT PROBLEM, 10/02/06) trazodone (Verified Allergy, Unknown, 10/02/06) alprazolam (Unverified Adverse Reaction, Unknown, 10/02/13) STATES MAKES HER "LOOPY" diazepam (Unverified Adverse Reaction, Unknown, 10/02/13) STATES IT MAKES HER "LOOPY" Patient Home Medication List Home Medication List Reviewed: Yes Albuterol Sulfate (Albuterol Sulfate) 2.5 Mg/3 Ml Vial.neb, 2.5 MG NEB Q6H PRN for SHORTNESS OF BREATH, (Reported) Entered as Reported by: LATISHA LOMELI on 07/23/18 0933 Albuterol/Ipratropium (Combivent Respimat Inhal [place]) 4 Gm Aero, 2 PUFF INH QID PRN for SHORTNESS OF BREATH, (Reported) Entered as Reported by: LATISHA LOMELI on 07/23/18932 Amitriptyline HCl (Amitriptyline HCl) 50 Mg Tablet, 50 MG PO HS, (Reported) Entered as Reported by: LATISHA LOMELI on 07/23/18932 Clopidogrel Bisulfate (Clopidogrel) 75 Mg Tablet, 75 MG PO DAILY, (Reported) Entered as Reported by: LATISHA LOMELI on 07/23/18932 Diphenoxylate HCl/Atropine (Diphenoxylate-Atrop 2.5-0.025) 1 Each Tablet, 2 TAB PO QID PRN for DIARRHEA, (Reported) Entered as Reported by: LATISHA LOMELI on 07/23/18932 Gabapentin (Gabapentin) 600 Mg Tablet, 600 MG PO BID Prescribed by: BABATUNDE MACHUCA on 04/13/19 1157 Hydroxyzine HCl (Hydroxyzine HCl) 25 Mg Tablet, 25 MG PO QID PRN for ITCHING, (Reported) Entered as Reported by: LATISHA LOMELI on 07/23/18932 Lansoprazole (Lansoprazole) 30 Mg Capsule.dr, 30 MG PO DAILY, (Reported) Entered as Reported by: LATISHA LOMELI on 07/23/18932 Lisinopril (Lisinopril) 20 Mg Tablet, 10 MG PO BID, (Reported) Entered as Reported by: LATISHA LOMELI on 07/23/18932 Lorazepam (Lorazepam) 1 Mg Tablet, 1 MG PO HS, (Reported) Entered as Reported by: LATISHA LOMELI on 07/23/18932 Lorazepam (Lorazepam) 1 Mg Tablet, 0.5 MG PO DAILY, (Reported) Entered as Reported by: LATISHA LOMELI on 07/23/18932 Oxycodone HCl (Oxycodone HCl) 10 Mg Tablet, 10-20 MG PO QID PRN for PAIN-SEVERE, (Reported) Entered as Reported by: LATISHA LOMELI on 07/23/18932 Promethazine HCl (Promethazine Tablet) 25 Mg Tablet, 25 MG PO TID PRN for NAUSEA/VOMITING-2ND LINE, (Reported) Entered as Reported by: LATISHA LOMELI on 07/23/18932 Pseudoephedrine HCl (Wal-Phed) 30 Mg Tablet, 30 MG PO Q4H PRN for CONGESTION, (Reported) Entered as Reported by: LATISHA LOMELI on 07/23/18932 Ranitidine HCl (Ranitidine HCl) 150 Mg Tablet, 150 MG PO BID, (Reported) Entered as Reported by: LATISHA LOMELI on 07/23/18932 Sumatriptan Succinate (Sumatriptan Succinate) 100 Mg Tablet, 100 MG PO UD PRN for MIGRAINE, (Reported) Entered as Reported by: LATISHA LOMELI on 07/23/18932 Review of Systems Constitutional: see HPI; No chills, No fever Cardiovascular: no symptoms reported Musculoskeletal: joint pain, muscle pain Skin: No lesions Psychiatric/Neurological: Denies Numbness, Denies Tingling Past Xptcmwc-Qvroap-Ggyngz Hx Patient Social History Tobacco Use?: Yes Tobacco type used: Cigarettes Use of E-Cig and/or Vaping dev: No Substance use?: No Alcohol Use?: No Seasonal Allergies Seasonal Allergies: No Past Medical History Surgeries: Yes (knee arthroscopy, removal superficial implant, shoulder fx tx, ankle fx tx,) Hysterectomy, Joint Replacement, Orthopedic Respiratory: Yes (Chronic airway obstruction) Pneumonia, COPD Cardiac: Yes (CAD, chest pain, unspecified essential hypertension, chest wall pain) High Cholesterol, Hypertension Neurological: Yes Headaches /Migraines, TIA Reproductive Disorders: No Genitourinary: Yes (Urinary tract infection) Renal Failure Pancreatitis Musculoskeletal: Yes (herniated intervetebral disk, chronic knee pain, chronic neck pain, back pa) Osteoporosis, Fibromyalgia Endocrine: Yes (hypokalemia, hypomagnesemia) HEENT: No Cataract, Eye Injury Cancer: Yes Psychosocial: Yes (chronic narcotic dependence, drug-seeking behavior, excessive somnolence di) Anxiety Integumentary: No Blood Disorders: Yes (anemia) Family Medical History Reviewed Nursing Family Hx Respiratory disorder 19 MOTHER Physical Exam Vital Signs Capillary Refill : Height, Weight, BMI Height: 5'7.00" Weight: 152lbs. 7.0oz. [id number]; 29.00 BMI Method:Stated General Appearance: WD/WN, no apparent distress Cardiovascular: regular rate, rhythm, no murmur Respiratory: lungs clear, normal breath sounds Feet: left foot ecchymosis, left foot pain, left foot soft tissue tenderness, left foot other (Pain to the lateral aspect with ecchymosis laterally and distally. Distal sensation and circulation intact. Able to move all toes.) Neurologic/Tendon: normal sensation, normal motor functions Neurologic/Psychiatric: alert, oriented x 3 Skin: warm/dry, ecchymosis (As described above) Progress/Results/Core Measures Results/Orders My Orders Orders - REGINE WILLSON MD Foot 3 View Left (02/21/21 12:39) Progress Progress Note : Progress Note Seen and evaluated. X-ray left foot. This does show fourth and fifth metatarsal fracture. Boot placed. Patient has walker at home. We discussed follow-up and she will follow-up either with Abiodun Potter or whoever her physician sends her to. Discharged home with return precautions. Patient verbalized understanding instructions and agreement with plan. Departure Impression Primary Impression: Foot fracture, left Qualified Codes: S92.902A - Unspecified fracture of left foot, initial encounter for closed fracture Disposition: 01 HOME, SELF-CARE Condition: Stable Departure-Patient Inst. Decision time for Depature: 14:02 Referrals: CHAMP MONTES MD (PCP) Primary Care Physician DYLAN POTTER Patient Instructions: Foot Fracture (DC), Walking Boot Add. Discharge Instructions: All discharge instructions reviewed with patient and/or family. Voiced understanding. Use walking boot at all times while walking. Use walker while walking to limit pressure on the foot. Follow-up with Homar Potter or orthopedist of your choice. Call his office today for appointment. Take medications as directed. You may take Tylenol/acetaminophen 650 mg every 6 hours as needed for pain if you are not taking the prescribed pain medicine. Do not take both at the same time as they both have acetaminophen in them. Elevate the foot to reduce swelling. You may use ice pack to area of concern 20 minutes/h as needed to reduce swelling and pain. Scripts Hydrocodone Bit/Acetaminophen (HYDROcodone/APAP 5 MG/325 MG TAB) 1 Tab Tab 1 TAB PO Q6H for Pain for 7 Days, #12 TAB 0 Refills Prov: REGINE WILLSON MD 02/21/21 REGINE WILLSON MD Feb 21, 2021 14:00
[2021-02-21] MEDS ORDERED: ACHD5005 PO (14:04)
== END 2021-02-21 14:15 | disposition home or self-care (01) ==
LOC: EDUNIT# 12:04 → ER FS 12:06
DX: S92.342A Displaced fracture of fourth metatarsal bone, left foot, initial encounter for closed fracture (principal); S92.352A Displaced fracture of fifth metatarsal bone, left foot, initial encounter for closed fracture; J44.9 Chronic obstructive pulmonary disease, unspecified; I10 Essential (primary) hypertension; G43.909 Migraine, unspecified, not intractable, without status migrainosus; F41.9 Anxiety disorder, unspecified; Z72.0 Tobacco use; Z86.73 Personal history of transient ischemic attack (TIA), and cerebral infarction without residual deficits; Z79.01 Long term (current) use of anticoagulants; Z79.899 Other long term (current) drug therapy; W22.8XXA Striking against or struck by other objects, initial encounter
CPT/HCPCS: 73630

== ENCOUNTER 2021-07-18 14:26 | Emergency (ER) | payer MEDICAID ==
[~2021-07-18] VITALS: Ht 170 cm; Wt 70.0 kg
[~2021-07-18 14:26] MED LIST changes: +ACHD5005 PO
--- NOTE | 2021-07-18 14:32 | ED Lower Extremity ---
General Chief Complaint: Lower Extremity Stated Complaint: RT KNEE PAIN History of Present Illness Date Seen by Provider: Jul 18, 2021 Time Seen by Provider: 14:34 Initial Comments 75-year-old female with PMH of right knee prostheses placed about 2 years ago, is here with complaints of right knee pain. Patient has a 54-year-old daughter who has traumatic brain injury, who has been kicking her in the knee now and then when she does her PT exercises. Patient thinks this is what triggered her knee pain. Patient is concerned she might have a fracture or dislocation. Patient is able to ambulate on it. Patient also has a current fracture on her left toe and is wearing a surgical shoe for that Allergies and Home Medications Allergies Coded Allergies: amylase (Unverified Allergy, Mild, 05/04/10) aspirin (Unverified Allergy, Mild, 08/09/08) flurbiprofen (Unverified Allergy, Mild, 07/23/08) lipase (Unverified Allergy, Mild, 05/04/10) protease (Unverified Allergy, Mild, 05/04/10) NSAIDS (Non-Steroidal Anti-Inflamma (Verified Allergy, Unknown, 10/02/06) Penicillins (Verified Allergy, Unknown, 10/02/06) Sulfa (Sulfonamide Antibiotics) (Verified Allergy, Unknown, 10/02/06) chlorhexidine (Verified Allergy, Unknown, RASH/SORES, 07/23/18) rofecoxib (Verified Allergy, Unknown, 10/02/06) tramadol (Verified Allergy, Unknown, PT CAN TAKE MORPHINE WITHOUT PROBLEM, 10/02/06) trazodone (Verified Allergy, Unknown, 10/02/06) alprazolam (Unverified Adverse Reaction, Unknown, 10/02/13) STATES MAKES HER "LOOPY" diazepam (Unverified Adverse Reaction, Unknown, 10/02/13) STATES IT MAKES HER "LOOPY" Patient Home Medication List Home Medication List Reviewed: Yes Albuterol Sulfate (Albuterol Sulfate) 2.5 Mg/3 Ml Vial.neb, 2.5 MG NEB Q6H PRN f or SHORTNESS OF BREATH, (Reported) Entered as Reported by: LATISHA LOMELI on 07/23/18 0933 Albuterol/Ipratropium (Combivent Respimat Inhal [place]) 4 Gm Aero, 2 PUFF INH QID PRN for SHORTNESS OF BREATH, (Reported) Entered as Reported by: LATISHA LOMELI on 07/23/18932 Amitriptyline HCl (Amitriptyline HCl) 50 Mg Tablet, 50 MG PO HS, (Reported) Entered as Reported by: LATISHA LOMELI on 07/23/18932 Clopidogrel Bisulfate (Clopidogrel) 75 Mg Tablet, 75 MG PO DAILY, (Reported) Entered as Reported by: LATISHA LOMELI on 07/23/18932 Diphenoxylate HCl/Atropine (Diphenoxylate-Atrop 2.5-0.025) 1 Each Tablet, 2 TAB PO QID PRN for DIARRHEA, (Reported) Entered as Reported by: LATISHA LOMELI on 07/23/18932 Gabapentin (Gabapentin) 600 Mg Tablet, 600 MG PO BID Prescribed by: BABATUNDE MACHUCA on 04/13/19 1157 Hydrocodone Bit/Acetaminophen (HYDROcodone/APAP 5 MG/325 MG TAB) 1 Tab Tab, 1 TAB PO Q6H Prescribed by: REGINE WILLSON on 02/21/21 1405 Hydroxyzine HCl (Hydroxyzine HCl) 25 Mg Tablet, 25 MG PO QID PRN for ITCHING, (Reported) Entered as Reported by: LATISHA LOMELI on 07/23/18932 Lansoprazole (Lansoprazole) 30 Mg Capsule.dr, 30 MG PO DAILY, (Reported) Entered as Reported by: LATISHA LOMELI on 07/23/18932 Lisinopril (Lisinopril) 20 Mg Tablet, 10 MG PO BID, (Reported) Entered as Reported by: LATISHA LOMELI on 07/23/18932 Lorazepam (Lorazepam) 1 Mg Tablet, 1 MG PO HS, (Reported) Entered as Reported by: LATISHA LOMELI on 07/23/18932 Lorazepam (Lorazepam) 1 Mg Tablet, 0.5 MG PO DAILY, (Reported) Entered as Reported by: LATISHA LOMELI on 07/23/18932 Oxycodone HCl (Oxycodone HCl) 10 Mg Tablet, 10-20 MG PO QID PRN for PAIN-SEVERE, (Reported) Entered as Reported by: LATISHA LOMELI on 07/23/18932 Promethazine HCl (Promethazine Tablet) 25 Mg Tablet, 25 MG PO TID PRN for NAUSEA/VOMITING-2ND LINE, (Reported) Entered as Reported by: LATISHA LOMELI on 07/23/18932 Pseudoephedrine HCl (Wal-Phed) 30 Mg Tablet, 30 MG PO Q4H PRN for CONGESTION, (Reported) Entered as Reported by: LATISHA LOMELI on 07/23/18932 Ranitidine HCl (Ranitidine HCl) 150 Mg Tablet, 150 MG PO BID, (Reported) Entered as Reported by: LATISHA LOMELI on 07/23/18932 Sumatriptan Succinate (Sumatriptan Succinate) 100 Mg Tablet, 100 MG PO UD PRN for MIGRAINE, (Reported) Entered as Reported by: LATISHA LOMELI on 07/23/18932 Review of Systems Constitutional: no symptoms reported EENTM: no symptoms reported Respiratory: no symptoms reported Cardiovascular: no symptoms reported Gastrointestinal: no symptoms reported Genitourinary: no symptoms reported Musculoskeletal: joint pain, joint swelling Skin: no symptoms reported Psychiatric/Neurological: No Symptoms Reported Past Sckzyjc-Nbvqza-Yczynn Hx Seasonal Allergies Seasonal Allergies: No Past Medical History Surgeries: Yes (knee arthroscopy, removal superficial implant, shoulder fx tx, ankle fx tx,) Hysterectomy, Joint Replacement, Orthopedic Respiratory: Yes (Chronic airway obstruction) Pneumonia, COPD Cardiac: Yes (CAD, chest pain, unspecified essential hypertension, chest wall pain) High Cholesterol, Hypertension Neurological: Yes Headaches /Migraines, TIA Reproductive Disorders: No Genitourinary: Yes (Urinary tract infection) Renal Failure Pancreatitis Musculoskeletal: Yes (herniated intervetebral disk, chronic knee pain, chronic neck pain, back pa) Osteoporosis, Fibromyalgia Endocrine: Yes (hypokalemia, hypomagnesemia) HEENT: No Cataract, Eye Injury Cancer: Yes Psychosocial: Yes (chronic narcotic dependence, drug-seeking behavior, excessive somnolence di) Anxiety Integumentary: No Blood Disorders: Yes (anemia) Family Medical History Respiratory disorder 19 MOTHER Physical Exam Vital Signs Vital Signs - First Documented 07/18/21 14:35 Temp 36.7 Pulse 75 Resp 18 B/P (MAP) 164/63 (96) Pulse Ox 100 O2 Delivery Room Air Capillary Refill : Height, Weight, BMI Height: 5'7.00" Weight: 152lbs. 7.0oz. [id number]; 21.00 BMI Method:Stated General Appearance: no apparent distress HEENT: PERRL/EOMI Neck: full range of motion Back: normal inspection, no vertebral tenderness Knees: right knee non-tender, right knee normal inspection, right knee normal range of motion, right knee no evidence of injury, right knee other (no crepitus, healed surgical scar, no erythema) Neurologic/Psychiatric: no motor/sensory deficits, alert, oriented x 3 Skin: normal color Progress/Results/Core Measures Results/Orders My Orders Orders - ANTHONY YOUNG MD Knee 3 View Right (07/18/21 14:54) Vital Signs/I&O 07/18/21 07/18/21 14:35 15:27 Temp 36.7 36.7 Pulse 75 75 Resp 18 18 B/P (MAP) 164/63 (96) 164/63 Pulse Ox 100 100 O2 Delivery Room Air Room Air Progress Progress Note : Progress Note 1. RIGHT KNEE STRAIN: - XR RIGHT KNEE: no acute changes - Follow up with ortho at [facility] within 7 days - Pt has a current left toe fracture with surgical shoe so she is not able to use crutches - ARTUR bandage to knee - Tylenol prn pain Diagnostic Imaging Diagonstic Imaging: Xray Plain Films/CT/US/NM/MRI: knee Comments [facility]. [place], [place] NAME: NORBERT DOMINGUEZ [facility] REC#: [id number] PT STATUS: REG ER : 1945 PHYSICIAN: ANTHONY YOUNG MD ADMIT DATE: 07/18/21/ER FS Draft Date of Exam:07/18/21 KNEE 3 VIEW RIGHT INDICATION: Right knee pain. TECHNIQUE: AP, oblique, and lateral views of the right knee are obtained and compared to 08/16/2011. FINDINGS: There is a new right knee prosthesis in place. Device is well aligned. There is no sign of fracture or device loosening. IMPRESSION: Well-aligned right knee prosthesis with no acute abnormality. Dictated on workstation # [id number] Dict: 07/18/21 1514 Trans: 07/18/21 1519 [id number] [id number] Interpreted by: KEIRA SAUCEDO MD Electronically signed by: Departure Impression Primary Impression: Strain of right knee Qualified Codes: S86.911A - Strain of unspecified muscle(s) and tendon(s) at lower leg level, right leg, initial encounter Disposition: HOME, SELF-CARE Condition: Stable Departure-Patient Inst. Referrals: CHAMP MONTES MD (PCP) Primary Care Physician Patient Instructions: Lower Extremity Muscle Strain Add. Discharge Instructions: - Follow up with ortho at [facility] within 7 days - Pt has a current left toe fracture with surgical shoe so she is not able to use crutches - ARTUR bandage to knee - Tylenol prn pain All discharge instructions reviewed with patient and/or family. Voiced understanding. ANTHONY YOUNG MD Jul 18, 2021 14:32
--- NOTE | 2021-07-18 15:19 | Diagnostic Imaging Report ---
INDICATION: Right knee pain. TECHNIQUE: AP, oblique, and lateral views of the right knee are obtained and compared to 08/16/2011. FINDINGS: There is a new right knee prosthesis in place. Device is well aligned. There is no sign of fracture or device loosening. IMPRESSION: Well-aligned right knee prosthesis with no acute abnormality. Dictated by: Dictated on workstation # [id number]
[2021-07-18 15:27] VITALS: BP 164/63
== END 2021-07-18 15:48 | disposition home or self-care (01) ==
LOC: EDUNIT# 14:26 → ER FS 14:27
DX: S86.911A Strain of unspecified muscle(s) and tendon(s) at lower leg level, right leg, initial encounter (principal); X58.XXXA Exposure to other specified factors, initial encounter
CPT/HCPCS: 73562

== ENCOUNTER 2021-11-07 05:43 | Inpatient (IN) | payer MEDICAID ==
[~2021-11-07] VITALS: Ht 170 cm; Wt 73.8 kg
[2021-11-07] MEDS ORDERED: NS IV 1000 ML 1,000 ML ONE (06:00)
[2021-11-07] MEDS ORDERED: NOREPINEPHRINE 8 MG/250 ML 250 ML IV ONE (06:00)
[2021-11-07] MEDS: NS IV 1000 ML 1,000 ML IV SCH ×2 (06:07→07:21)
[2021-11-07] MEDS: NOREPINEPHRINE 8 MG/250 ML 250 ML IV SCH ×4 (06:08→22:01)
[2021-11-07] MEDS ORDERED: NS IV 1000 ML 2,100 ML IV ONE (06:15)
--- NOTE | 2021-11-07 06:15 | ED General ---
General Chief Complaint: General Problems/Pain Stated Complaint: FALL Source of Information: Patient Exam Limitations: No Limitations History of Present Illness Date Seen by Provider: Nov 07, 2021 Time Seen by Provider: 05:50 Initial Comments 76-year-old female presents to the emergency department today for altered mentation, low blood pressure. Reportedly last known well was 11 PM prior to going to bed. EMS states on their arrival she was talking but making no sense. Her blood pressures were 50s over 30s and they were unable to obtain IV access. Her blood sugar is 110. They could not get an accurate oxygen saturation so they placed her on oxygen via nasal cannula. On arrival the patient is alert, oriented. She is significantly hypotensive in the 60s systolic. She tells me that she had shoulder surgery in October but does not recall exactly when. She denies any fevers or chills. She does state that she "hurts all over." She denies any specific chest pain. She does endorse some lower abdominal pain that is a cramping sensation without radiation, aggravating or alleviating factors. She states she is chronically ill and is continually requesting water. Allergies and Home Medications Allergies Coded Allergies: amylase (Unverified Allergy, Mild, 05/04/10) aspirin (Unverified Allergy, Mild, 08/09/08) flurbiprofen (Unverified Allergy, Mild, 07/23/08) lipase (Unverified Allergy, Mild, 05/04/10) protease (Unverified Allergy, Mild, 05/04/10) NSAIDS (Non-Steroidal Anti-Inflamma (Verified Allergy, Unknown, 10/02/06) Penicillins (Verified Allergy, Unknown, 10/02/06) Sulfa (Sulfonamide Antibiotics) (Verified Allergy, Unknown, 10/02/06) chlorhexidine (Verified Allergy, Unknown, RASH/SORES, 07/23/18) rofecoxib (Verified Allergy, Unknown, 10/02/06) tramadol (Verified Allergy, Unknown, PT CAN TAKE MORPHINE WITHOUT PROBLEM, 10/02/06) trazodone (Verified Allergy, Unknown, 10/02/06) alprazolam (Unverified Adverse Reaction, Unknown, 10/02/13) STATES MAKES HER "LOOPY" diazepam (Unverified Adverse Reaction, Unknown, 10/02/13) STATES IT MAKES HER "LOOPY" Patient Home Medication List Home Medication List Reviewed: Yes Albuterol Sulfate (Albuterol Sulfate) 2.5 Mg/3 Ml Vial.neb, 2.5 MG NEB Q6H PRN for SHORTNESS OF BREATH, (Reported) Entered as Reported by: LATISHA LOMELI on 07/23/18932 Albuterol/Ipratropium (Combivent Respimat Inhal [place]) 4 Gm Aero, 2 PUFF INH QID PRN for SHORTNESS OF BREATH, (Reported) Entered as Reported by: LATISHA LOMELI on 07/23/18932 Amitriptyline HCl (Amitriptyline HCl) 50 Mg Tablet, 50 MG PO HS, (Reported) Entered as Reported by: LATISHA LOMELI on 07/23/18932 Clopidogrel Bisulfate (Clopidogrel) 75 Mg Tablet, 75 MG PO DAILY, (Reported) Entered as Reported by: LATISHA LOMELI on 07/23/18932 Diphenoxylate HCl/Atropine (Diphenoxylate-Atrop 2.5-0.025) 1 Each Tablet, 2 TAB PO QID PRN for DIARRHEA, (Reported) Entered as Reported by: LATISHA LOMELI on 07/23/18932 Gabapentin (Gabapentin) 600 Mg Tablet, 600 MG PO BID Prescribed by: BABATUNDE MACHUCA on 04/13/19 1157 Hydrocodone Bit/Acetaminophen (HYDROcodone/APAP 5 MG/325 MG TAB) 1 Tab Tab, 1 TAB PO Q6H Prescribed by: REGINE WILLSON on 02/21/21 1405 Hydroxyzine HCl (Hydroxyzine HCl) 25 Mg Tablet, 25 MG PO QID PRN for ITCHING, (Reported) Entered as Reported by: LATISHA LOMELI on 07/23/18932 Lansoprazole (Lansoprazole) 30 Mg Capsule.dr, 30 MG PO DAILY, (Reported) Entered as Reported by: LATISHA LOMELI on 07/23/18932 Lisinopril (Lisinopril) 20 Mg Tablet, 10 MG PO BID, (Reported) Entered as Reported by: LATISHA LOMELI on 07/23/18932 Lorazepam (Lorazepam) 1 Mg Tablet, 1 MG PO HS, (Reported) Entered as Reported by: LATISHA LOMELI on 6/13/19 0933 Lorazepam (Lorazepam) 1 Mg Tablet, 0.5 MG PO DAILY, (Reported) Entered as Reported by: LATISHA LOMELI on 07/23/18932 Oxycodone HCl (Oxycodone HCl) 10 Mg Tablet, 10-20 MG PO QID PRN for PAIN-SEVERE, (Reported) Entered as Reported by: LATISHA LOMELI on 07/23/18932 Promethazine HCl (Promethazine Tablet) 25 Mg Tablet, 25 MG PO TID PRN for NAUSEA/VOMITING-2ND LINE, (Reported) Entered as Reported by: LATISHA LOMELI on 07/23/18932 Pseudoephedrine HCl (Wal-Phed) 30 Mg Tablet, 30 MG PO Q4H PRN for CONGESTION, (Reported) Entered as Reported by: LATISHA LOMELI on 07/23/18932 Ranitidine HCl (Ranitidine HCl) 150 Mg Tablet, 150 MG PO BID, (Reported) Entered as Reported by: LATISHA LOMELI on 07/23/18932 Sumatriptan Succinate (Sumatriptan Succinate) 100 Mg Tablet, 100 MG PO UD PRN for MIGRAINE, (Reported) Entered as Reported by: LATISHA LOMELI on 07/23/18932 Review of Systems Review of Systems Constitutional: weakness EENTM: no symptoms reported Respiratory: no symptoms reported Cardiovascular: no symptoms reported Gastrointestinal: abdominal pain Genitourinary: no symptoms reported Musculoskeletal: muscle pain Skin: no symptoms reported Psychiatric/Neurological: No Symptoms Reported Hematologic/Lymphatic: No Symptoms Reported Immunological/Allergic: no symptoms reported Past Qpabbja-Rlbcjq-Igsstk Hx Patient Social History Tobacco Use?: No Use of E-Cig and/or Vaping dev: No Substance use?: No Alcohol Use?: No Seasonal Allergies Seasonal Allergies: No Past Medical History Surgeries: Yes (knee arthroscopy, removal superficial implant, shoulder fx tx, ankle fx tx,) Hysterectomy, Joint Replacement, Orthopedic Respiratory: Yes (Chronic airway obstruction) Pneumonia, COPD Cardiac: Yes (CAD, chest pain, unspecified essential hypertension, chest wall pain) High Cholesterol, Hypertension Neurological: Yes Headaches /Migraines, TIA Reproductive Disorders: No Genitourinary: Yes (Urinary tract infection) Renal Failure Pancreatitis Musculoskeletal: Yes (herniated intervetebral disk, chronic knee pain, chronic neck pain, back pa) Osteoporosis, Fibromyalgia Endocrine: Yes (hypokalemia, hypomagnesemia) HEENT: No Cataract, Eye Injury Cancer: Yes Psychosocial: Yes (chronic narcotic dependence, drug-seeking behavior, excessive somnolence di) Anxiety Integumentary: No Blood Disorders: Yes (anemia) Family Medical History Reviewed Nursing Family Hx Respiratory disorder 19 MOTHER No Pertinent Family Hx Physical Exam Vital Signs Vital Signs - First Documented 11/07/21 11/07/21 05:46 05:47 Temp 36.2 Pulse 99 Resp 24 B/P (MAP) 69/34 (46) Pulse Ox 96 O2 Delivery Nasal Cannula O2 Flow Rate 2.00 FiO2 96 Capillary Refill : Height, Weight, BMI Height: 5'7.00" Weight: 152lbs. 7.0oz. 68.518674wl; 24.00 BMI Method:Stated General Appearance: No Apparent Distress, WD/WN HEENT: PERRL/EOMI, Normal ENT Inspection, Other (Mucous membranes are severely dry) Neck: Normal Inspection, Non Tender, Supple Respiratory: Chest Non Tender, Lungs Clear, Normal Breath Sounds, No Accessory Muscle Use, No Respiratory Distress Cardiovascular: Regular Rate, Rhythm, No Edema, No Gallop, No JVD, No Murmur, Other (Dramatically diminished radial pulses bilaterally) Gastrointestinal: Normal Bowel Sounds, No Organomegaly, No Pulsatile Mass, Soft, Tenderness (Suprapubic tenderness) Extremity: Normal Capillary Refill, Normal Inspection, Normal Range of Motion, Non Tender, No Calf Tenderness, No Pedal Edema Neurologic/Psychiatric: Alert, Oriented x3, No Motor/Sensory Deficits, Normal 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, 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 Norm as Tested Skin: Normal Color, Warm/Dry Lymphatic: No Adenopathy Focused Exam Lactate Level 11/07/21 06:13: Lactic Acid Level 5.30*H Lactic Acid Level Laboratory Tests Test 11/07/21 06:13 Lactic Acid Level 5.30 MMOL/L (0.50-2.00) *H Procedures/Interventions Lumen: triple Central Line Procedure: betadine prep, sterile drapes applied, sterile dressing applied Position: femoral (R) Anesthesia: Lidocaine Volume Anesthetic (ccs): 10 Complications: none Post Position: sutured, good blood return Progress/Results/Core Measures Suspected Sepsis SIRS Temperature: Pulse: 87 Respiratory Rate: Laboratory Tests 11/07/21 06:13: White Blood Count 5.5 Blood Pressure 69 /34 Mean: 46 11/07/21 06:13: Lactic Acid Level 5.30*H Laboratory Tests 11/07/21 06:13: Creatinine 1.95H, INR Comment 1.3, Platelet Count 136, Total Bilirubin 0.2 Results/Orders Lab Results Laboratory Tests Test 11/07/21 06:13 11/07/21 06:18 11/07/21 06:20 Range/Units White Blood Count 5.5 4.3-11.0 10^3/uL Red Blood Count 3.40 L 3.80-5.11 10^6/uL Hemoglobin 9.0 L 11.5-16.0 g/dL Hematocrit 29 L 35-52 % Mean Corpuscular Volume 84 80-99 fL Mean Corpuscular Hemoglobin 27 25-34 pg Mean Corpuscular Hemoglobin Concent 31 L 32-36 g/dL Red Cell Distribution Width 15.9 H 10.0-14.5 % Platelet Count 136 130-400 10^3/uL Mean Platelet Volume 10.2 9.0-12.2 fL Immature Granulocyte % (Auto) 1 % Neutrophils (%) (Auto) 84 H 42-75 % Lymphocytes (%) (Auto) 8 L 12-44 % Monocytes (%) (Auto) 7 0-12 % Eosinophils (%) (Auto) 0 0-10 % Basophils (%) (Auto) 0 0-10 % Neutrophils # (Auto) 4.6 1.8-7.8 10^3/uL Lymphocytes # (Auto) 0.5 L 1.0-4.0 10^3/uL Monocytes # (Auto) 0.4 0.0-1.0 10^3/uL Eosinophils # (Auto) 0.0 0.0-0.3 10^3/uL Basophils # (Auto) 0.0 0.0-0.1 10^3/uL Immature Granulocyte # (Auto) 0.0 0.0-0.1 10^3/uL Prothrombin Time 16.3 H 12.2-14.7 SEC INR Comment 1.3 0.8-1.4 Activated Partial Thromboplast Time 32 24-35 SEC Sodium Level 143 135-145 MMOL/L Potassium Level 2.9 L 3.6-5.0 MMOL/L Chloride Level 116 H 98-107 MMOL/L Carbon Dioxide Level 8 *L 21-32 MMOL/L Anion Gap 19 H 5-14 MMOL/L Blood Urea Nitrogen 42 H 7-18 MG/DL Creatinine 1.95 H 0.60-1.30 MG/DL Estimat Glomerular Filtration Rate 26 BUN/Creatinine Ratio 22 Glucose Level 95 70-105 MG/DL Lactic Acid Level 5.30 *H 0.50-2.00 MMOL/L Calcium Level 5.4 *L 8.5-10.1 MG/DL Corrected Calcium 6.7 L 8.5-10.1 MG/DL Total Bilirubin 0.2 0.1-1.0 MG/DL Aspartate Amino Transf (AST/SGOT) 23 5-34 U/L Alanine Aminotransferase (ALT/SGPT) 12 0-55 U/L Alkaline Phosphatase 60 40-136 U/L Troponin I < 0.30 <0.30 NG/ML Total Protein 3.7 L 6.4-8.2 GM/DL Albumin 2.4 L 3.2-4.5 GM/DL Urine Color DK YELLOW Urine Clarity CLEAR Urine pH 6.0 5-9 Urine Specific Jay 1.020 1.016-1.022 Urine Protein TRACE H NEGATIVE Urine Glucose (UA) NEGATIVE NEGATIVE Urine Ketones NEGATIVE NEGATIVE Urine Nitrite NEGATIVE NEGATIVE Urine Bilirubin 1+ H NEGATIVE Urine Urobilinogen 0.2 < = 1.0 MG/DL Urine Leukocyte Esterase NEGATIVE NEGATIVE Urine RBC (Auto) NEGATIVE NEGATIVE Urine RBC 0-2 /HPF Urine WBC 0-2 /HPF Urine Squamous Epithelial Cells RARE /HPF Urine Crystals NONE /LPF Urine Bacteria NEGATIVE /HPF Urine Casts PRESENT /LPF Urine Hyaline Casts 5-10 H /LPF Urine Mucus SMALL H /LPF Urine Culture Indicated CULTURE PENDING SARS-CoV-2 RNA (RT-PCR) Not Detected Not Detecte My Orders Orders - NATASHA CAIN DO Norepinephrine 8 Mg/250 Ml (Norepinephri (11/07/21 06:00) Ns Iv 1000 Ml (Sodium Chloride 0.9%) (11/07/21 06:00) Ns Iv 1000 Ml (Sodium Chloride 0.9%) (11/07/21 06:15) Norepinephrine 8 Mg/250 Ml (Norepinephri (11/07/21 06:15) Cbc With Automated Diff (11/07/21 06:06) Comprehensive Metabolic Panel (11/07/21 06:06) Blood Culture (11/07/21 06:06) Urinalysis (11/07/21 06:06) Urine Culture (11/07/21 06:06) Protime With Inr (11/07/21 06:06) Partial Thromboplastin Time (11/07/21 06:06) Chest 1 View Ap/Pa Only (11/07/21 06:06) Ed Iv/Invasive Line Start (11/07/21 06:06) Ekg Tracing (11/07/21 06:06) Troponin I [place] (11/07/21 06:06) Vital Signs Adult Sepsis Patie Q15M (11/07/21 06:06) O2 (11/07/21 06:06) Remove Rings In Anticipation O (11/07/21 06:06) Lactic Acid Analyzer (11/07/21 06:06) Ns Iv 1000 Ml (Sodium Chloride 0.9%) (11/07/21 06:15) Ct Head Wo (11/07/21 06:06) Covid 19 Inhouse Test (11/07/21 06:06) Catheter(Urinary) Care .0300, 1500 (11/07/21 06:10) Catheter(Urinary) Insert & Ass 03,15 (11/07/21 06:10) Manual Differential (11/07/21 06:13) Ct Abdomen/Pelvis Wo (11/07/21 06:29) Meropenem (Merrem 1000 Mg) (11/07/21 06:45) Fecal Occult Bedside (11/07/21 06:37) Meropenem (Merrem 500 Mg) (11/07/21 06:37) Ns (Ivpb) (Sodium Chloride 0.9% Ivpb Bag (11/07/21 06:37) Calc Gluc 1 Gm/100 Ml Ivpb (Calcium Gluc (11/07/21 07:15) Medications Given in ED Current Medications Medications Dose Ordered Sig/Nadege Route Start Time Stop Time Status Last Admin Dose Admin Meropenem 1000 mg/ Sodium Chloride 100 ml @ 200 mls/hr ONCE ONCE IV 11/07/21 06:45 11/07/21 07:14 11/07/21 06:44 200 MLS/HR Vital Signs/I&O 11/07/21 11/07/21 11/07/21 11/07/21 05:46 05:47 06:08 06:20 Temp 36.2 Pulse 99 87 81 Resp 24 B/P (MAP) 69/34 (46) 69/34 93/24 Pulse Ox 96 96 O2 Delivery Nasal Cannula Nasal Cannula O2 Flow Rate 2.00 2.00 FiO2 96 Capillary Refill : Blood Pressure Mean: 46 Progress Note : Time: 06:38 Progress Note Pt remains alert and oriented. BP slightly improved with fluids and levophed. Hgb low, 9 today down from 12-13. Occult blood positive at bedside, no gross blood in stool. ECG EKG : Comment Sinus rhythm with a rate of 85 bpm. Intervals. Normal axis. No ST or T wave abnormalities. No ectopy. Departure Communication (Admissions) Time/Spoke to Admitting Phy: 07:05 Patient remained hypotensive despite IV fluids. Started on Levophed and titrated up to 15 with a MAP of 50. No obvious source of infection lactate significantly elevated. Given empiric antibiotics with meropenem. X-ray is clear. CT brain is negative for reported altered mentation. CT abdomen pelvis is negative for any findings, obtained due to some suprapubic tenderness on exam. She does have some KANG. Spoke with Dr. Morales who accepts the patient in transfer Impression Primary Impression: Septic shock Additional Impression: KANG (acute kidney injury) Disposition: 30 STILL A PATIENT Departure-Patient Inst. Referrals: CHAMP MONTES MD (PCP/Family) Primary Care Physician NATASHA CAIN DO Nov 07, 2021 06:15
[2021-11-07 06:24] LABS: CLARITY,URINE CLEAR; GLUCOSE, URINE (UA) NEGATIVE (NEGATIVE); KETONES,URINE NEGATIVE (NEGATIVE); LEUKOCYTE ESTERASE ,URINE NEGATIVE (NEGATIVE); NITRITE,URINE NEGATIVE (NEGATIVE); PROTEIN,URINE TRACE (NEGATIVE)
[2021-11-07 06:25] LABS: BASOPHILS % (AUTO) 0 % (0-10); EOSINOPHILS % (AUTO) 0 % (0-10); HEMATOCRIT 29 % (35-52); LYMPHOCYTES # (AUTO) 0.5 10^3/uL (1.0-4.0); LYMPHOCYTES % (AUTO) 8 % (12-44); MEAN CORPUSCULAR HEMOGLOBIN 27 pg (25-34); MEAN CORPUSCULAR HGB CONC 31 g/dL (32-36); MEAN CORPUSCULAR VOLUME 84 fL (80-99); MEAN PLATELET VOLUME 10.2 fL (9.0-12.2); MONOCYTES # (AUTO) 0.4 10^3/uL (0.0-1.0); MONOCYTES % (AUTO) 7 % (0-12); NEUTROPHILS # (AUTO) 4.6 10^3/uL (1.8-7.8); NEUTROPHILS % (AUTO) 84 % (42-75); PLATELET COUNT 136 10^3/uL (130-400); WHITE BLOOD COUNT 5.5 10^3/uL (4.3-11.0)
--- NOTE | 2021-11-07 06:25 | Diagnostic Imaging Report ---
INDICATION: Hypotension. Portable chest 6:17 AM There appears to be hiatal hernia. Heart size and pulmonary vascularity are normal. There are no infiltrates, effusions or pneumothoraces. IMPRESSION: Hiatal hernia. Dictated by: Dictated on workstation # [id number]
[2021-11-07] MEDS ORDERED: NS (IVPB) 100 ML ONE (06:37)
[2021-11-07] MEDS ORDERED: MEROPENEM 500 MG VIAL (MERREM) IV ONE (06:37)
[2021-11-07] MEDS ORDERED: MEROPENEM 1,000 MG in NS (IVPB) 100 ML IV ONE (06:45)
[2021-11-07 06:49] LABS: BACTERIA,URINE NEGATIVE /HPF; COLOR,URINE DK YELLOW; RBC,URINE 0-2 /HPF; SQUAMOUS EPITHELIAL CELL,UR RARE /HPF; WBC,URINE 0-2 /HPF
[2021-11-07 06:51] LABS: BILIRUBIN,URINE 1+ (NEGATIVE)
[2021-11-07 06:54] LABS: INR 1.3 (0.8-1.4); PROTHROMBIN TIME PATIENT 16.3 SEC (12.2-14.7)
[2021-11-07 06:56] LABS: CHLORIDE 116 MMOL/L (98-107); POTASSIUM 2.9 MMOL/L (3.6-5.0); SODIUM 143 MMOL/L (135-145)
[2021-11-07 06:57] LABS: BUN/CREATININE RATIO 22; CREATININE SERUM 1.95 MG/DL (0.60-1.30); GFR ESTIMATED 26; GLUCOSE 95 MG/DL (70-105)
[2021-11-07 07:01] LABS: CALCIUM 5.4 MG/DL (8.5-10.1)
[2021-11-07 07:02] LABS: BILIRUBIN,TOTAL 0.2 MG/DL (0.1-1.0); CARBON DIOXIDE 8 MMOL/L (21-32)
[2021-11-07 07:03] LABS: ALANINE AMINOTRANSFERASE 12 U/L (0-55); ALBUMIN 2.4 GM/DL (3.2-4.5); ALKALINE PHOSPHATASE 60 U/L (40-136); TOTAL PROTEIN 3.7 GM/DL (6.4-8.2)
--- NOTE | 2021-11-07 07:06 | Diagnostic Imaging Report ---
PROCEDURE: CT head without contrast. TECHNIQUE: Multiple contiguous axial images were obtained through the brain without the use of intravenous contrast. Auto Exposure Controls were utilized during the CT exam to meet ALARA standards for radiation dose reduction. INDICATION: Altered mental status. Comparison made study from 04/12/2019. There is area of encephalomalacia in the right occipital lobe. There are no masses or hemorrhages. There are no extraaxial fluid collections. Ventricles are nondilated. There is a small amount of fluid in the left maxillary sinus. 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 Small amount of fluid in the left maxillary sinus could be sinusitis. Dictated by: Dictated on workstation # [id number]
--- NOTE | 2021-11-07 07:07 | Diagnostic Imaging Report ---
PROCEDURE: CT abdomen and pelvis without contrast. TECHNIQUE: Multiple contiguous axial images were obtained through the abdomen and pelvis without the use of intravenous contrast. Auto Exposure Controls were utilized during the CT exam to meet ALARA standards for radiation dose reduction. INDICATION: Hypotension and altered mental status. FINDINGS: There is consolidation in the right lower lung suspicious for pneumonia. There is some bronchial wall thickening in both lower lungs suggesting bronchitis. There is a moderate-sized sliding hiatal hernia. Liver appears normal. The gallbladder is surgically absent. Pancreas is unremarkable. There is calcific atherosclerosis of aorta but no aneurysm. Spleen is not enlarged. Adrenals are normal. Some tiny nonobstructing calculi in both kidneys. Small bowel is nondilated. Colon is unremarkable. There is a Garcia catheter in urinary bladder. Patient has had left hip arthroplasty. There is no intraperitoneal free air or free fluid. IMPRESSION: Hiatal hernia. Right lower lobe pneumonia. Bilateral nephrolithiasis. Dictated by: Dictated on workstation # [id number]
[2021-11-07] MEDS ORDERED: CALC GLUC 1 GM/100 ML IVPB 100 ML IV ONE (07:15)
[2021-11-07 07:19] LABS: NEUTROPHILS % (MANUAL) 19 %
[2021-11-07 07:20] LABS: BAND NEUTROPHILS 34 %; BASOPHILS % (MANUAL) 1 %; EOSINOPHILS % (MANUAL) 1 %; LYMPHOCYTES % (MANUAL) 12 %; METAMYELOCYTES % 17 %; MONOCYTES % (MANUAL) 4 %; MYELOCYTES % 7 %; NUCLEATED RED BLOOD CELLS 1
[2021-11-07 07:21] LABS: REACTIVE LYMPHOCYTES 5 %
[2021-11-07 07:22] LABS: RBC MORPH NORMAL
[2021-11-07 07:23] LABS: PLATELET ESTIMATE NORMAL
[2021-11-07] MEDS ORDERED: NS IV 500 ML 500 ML IV PRN (09:15)
[2021-11-07] MEDS ORDERED: polyethylene glycoL POWDER 17 GM (MIRALAX) PACK PO PRN (09:15)
[2021-11-07] MEDS ORDERED: BISACODYL 10 MG SUPP (DULCOLAX) PR PRN (09:15)
[2021-11-07] MEDS ORDERED: VANCOMYCIN INJECTION 0.1 MG in NS (IVPB) 250 ML IV SCH (09:15)
[2021-11-07] MEDS ORDERED: MEROPENEM 500 MG in NS (IVPB) 100 ML IV SCH (09:15)
[2021-11-07] MEDS ORDERED: MELATONIN 3 MG TABLET PO PRN (09:15)
[2021-11-07] MEDS ORDERED: ONDANSETRON 4 MG (ZOFRAN) ORAL DISSOLVE TAB PO PRN (09:15)
[2021-11-07] MEDS ORDERED: ACETAMINOPHEN 325 MG TABLET PO PRN (09:15)
--- NOTE | 2021-11-07 09:57 | Tele-ICU Progress Note ---
Subjective Date Seen by a Provider: Nov 07, 2021 Subjective/Events-last exam This virtual visit was conducted using real time audio/video. Thank you for asking us to see this patient for respiratory insufficiency due to septic shock. Also AMS, KANG, occult blood positive,recent falls. Recent events: Transferred from [facility]. PMH:Recent shoulder surgery, htn., HL, COPD, Migr., pancreatitis SH: smoking history Y FH: Non-contributory ROS:as in HPI. PE: Pale, undistressed on camera. VSS. O2 sat 96% on 2 LPM HEENT: No obvious masses, adenopathy or JVD. Chest: clear to auscultation. CV: RRR S1 S2 No murmur or added sounds. Abd: Non-tender. Bowel sounds Y. : Unremarkable. Garcia Y. PRACTICE SUPPORT SPECIALIST/psychiatric: Grossly intact. No obvious focal findings. Extremities: No edema. Capillary refill < 3 seconds. Skin: unremarkable. Results: Elevated BUN 42, Creat 1.95, Lactate 5.3. Decreased Hb 9.0, Alb 2.4, K 2.9, Ca 5.4, corrected 6.7. CXR: Hyperinflated, no infilts. . Available chart/ vitals / labs / images reviewed. Video assessment done using teleICU camera, rest of exam as per RN. A/P: Respiratory insufficiency: Continue present management with O2 Monitor for increasing oxygenation needs and/or need for intubation. Critical Care: critically ill patient. Cont. abx, pressors. Replace K, Ca. Discussed with LU Fernandez. Asked RN to reach out to eICU if any questions or concerns later. Time spent with patient/coordination of care with other health professionals (mins): 25 Sepsis Event Evaluation Height, Weight, BMI Height: 5'7.00" Weight: 152lbs. 7.0oz. 68.347792gq; BMI Method:Stated Focused Exam Lactate Level 11/07/21 06:13: Lactic Acid Level 5.30*H Lactic Acid Level Laboratory Tests Test 11/07/21 06:13 Lactic Acid Level 5.30 MMOL/L (0.50-2.00) *H Exam Exam Patient acknowledged, consented, and participated in this virtual visit which was conducted using real time audio/video Vital Signs Date Time Temp Pulse Resp B/P (MAP) Pulse Ox O2 Delivery O2 Flow Rate FiO2 9/28/22 09:30 79 22 88/46 (60) 90 Nasal Cannula 3.00 11/07/21 09:15 79 17 95/50 (65) 94 Nasal Cannula 3.00 11/07/21 09:04 78 11/07/21 09:00 79 20 72/31 (45) Nasal Cannula 3.00 11/07/21 08:02 79 20 105/41 97 Nasal Cannula 2.00 11/07/21 08:02 79 20 105/41 (62) 97 Nasal Cannula 2.00 11/07/21 07:36 78 14 95/40 (58) 98 Room Air 11/07/21 07:15 77 18 95/58 (70) 94 Nasal Cannula 11/07/21 07:00 79 17 94/39 (57) 93 Nasal Cannula 2.00 11/07/21 06:45 80 17 84/51 (62) 93 Nasal Cannula 2.00 11/07/21 06:30 80 17 87/41 (56) 95 Nasal Cannula 2.00 11/07/21 06:20 81 93/24 11/07/21 06:15 84 17 93/24 (47) 91 Room Air 11/07/21 06:08 87 69/34 11/07/21 06:00 89 16 69/34 (46) 11/07/21 05:47 96 Nasal Cannula 2.00 96 11/07/21 05:46 36.2 99 24 69/34 (46) 96 Nasal Cannula 2.00 Height & Weight Height: 5'7.00" Weight: 152lbs. 7.0oz. 68.737376kg; BMI Method:Stated General Appearance: No Apparent Distress, WD/WN, Chronically ill, Thin HEENT: PERRL/EOMI, Normal ENT Inspection, Other (Mucous membranes are severely dry) Neck: Normal Inspection, Non Tender, Supple Respiratory: Chest Non Tender, Lungs Clear, Normal Breath Sounds, No Accessory Muscle Use, No Respiratory Distress Cardiovascular: Regular Rate, Rhythm, No Edema, No Gallop, No JVD, No Murmur, Other (Dramatically diminished radial pulses bilaterally) Capillary Refill: Greater Than 3 Seconds Peripheral Pulses: 1+ Dorsalis Pedis (R), 1+ Left Dors-Pedis (L) Extremity: Normal Capillary Refill, Normal Inspection, Normal Range of Motion, Non Tender, No Calf Tenderness, No Pedal Edema Neurologic/Psychiatric: Alert, Oriented x3, No Motor/Sensory Deficits, Normal Mood/Affect, server engineer II-XII Norm as Tested Skin: Normal Color, Warm/Dry Lymphatic: No Adenopathy Results Lab Laboratory Tests 11/07/21 06:13 Assessment/Plan Assessment/Plan See free text. Critical Care: Critically Ill Patient LAYLA BORGES MD Nov 07, 2021 09:57
[2021-11-07] MEDS ORDERED: KCL 20 MEQ TAB (K-DUR) PO NR (10:00)
[2021-11-07] MEDS ORDERED: ENOXAPARIN 40 MG/0.4 ML (LOVENOX) SYR SC SCH (10:00)
[2021-11-07] MEDS ORDERED: VANCOMYCIN 1250 MG/NS 250 ML IVPB IV NR ×2 (10:00)
[2021-11-07] MEDS ORDERED: POTASSIUM CL 10MEQ/50ML IVPB 200 ML IV ONE (10:04)
[2021-11-07 10:07] VITALS: BP 88/46
[2021-11-07] MEDS ORDERED: RT-ALBUTEROL/IPRATROPIUM 3 ML (DUONEB) VIAL INH PRN (10:15)
[2021-11-07] MEDS: ENOXAPARIN INJECTION 30 MG/0.3 ML SYR SC SCH (10:21)
[2021-11-07] MEDS: POTASSIUM CL 10MEQ/50ML IVPB 50 ML IV SCH ×3 (10:21→12:00)
[2021-11-07] MEDS: ONDANSETRON 4 MG/2 ML (SDV) Z0FRAN IV PRN (10:22)
[2021-11-07] MEDS: LACTATED RINGERS 1,000 ML IV SCH ×2 (10:22→19:19)
[2021-11-07] MEDS: fentaNYL INJ 100 MCG/2 ML AMP IVP PRN (10:22)
[2021-11-07] MEDS ORDERED: LISI40TA9 PO (12:42)
[2021-11-07] MEDS ORDERED: FAMO20TA5 PO (12:42)
[2021-11-07] MEDS ORDERED: GBPN600T PO (12:42)
[2021-11-07] MEDS ORDERED: OXYC5TAB PO (12:42)
[2021-11-07] MEDS ORDERED: [UNRECOGNIZED DRUG - CODE] PO (12:42)
[2021-11-07] MEDS ORDERED: ERGO1250 PO (12:42)
[2021-11-07] MEDS: RT-ALBUTEROL/IPRATROPIUM 3 ML (DUONEB) VIAL INH SCH ×2 (15:29→21:50)
[2021-11-07 15:31] LABS: POTASSIUM 4.9 MMOL/L (3.6-5.0)
[2021-11-07 15:32] LABS: CALCIUM 7.3 MG/DL (8.5-10.1)
[2021-11-07 15:37] LABS: CREATININE SERUM 2.27 MG/DL (0.60-1.30)
[2021-11-07] MEDS: MEROPENEM 500 MG in NS (IVPB) 100 ML IV SCH (19:20)
--- NOTE | 2021-11-07 20:57 | History & Physical-Hospitalist ---
History of Present Illness HPI/Chief Complaint Cesar Cartwright is a 76 year old female with PMH HTN, GERD, fibromyalgia, chronic pancreatitis, narcotic dependence, who presented with altered mental status. EMS was called and she was found to be profoundly hypotensive. She reports abdominal pain. She is nauseous. She denies fevers and chills. She denies chest pain. She denies shortness of breath and cough. She denies diarrhea. She had a left shoulder surgery recently. She is having some pain in her shoulder but nothing significant. She has not noticed any rash or skin changes. She denies dysuria. Source: patient Exam Limitations: no limitations Date Seen 11/07/21 Time Seen by a Provider: 09:40 Attending Physician Edis Richard MD PCP Admitting Physician: Babatunde Machuca MD Attending Physician: Babatunde Machuca MD Referring Physician Date of Admission Nov 07, 2021 at 08:47 Home Medications & Allergies Home Medications Reviewed patient Home Medication Reconciliation performed by pharmacy medication reconciliations satellite installation technician and/or nursing. Patients Allergies have been reviewed. Allergies Allergies Coded Allergies amylase (Unverified Allergy, Mild, 05/04/10) aspirin (Unverified Allergy, Mild, 08/09/08) flurbiprofen (Unverified Allergy, Mild, 07/23/08) lipase (Unverified Allergy, Mild, 05/04/10) protease (Unverified Allergy, Mild, 05/04/10) NSAIDS (Non-Steroidal Anti-Inflamma (Verified Allergy, Unknown, 10/02/06) Penicillins (Verified Allergy, Unknown, 10/02/06) Sulfa (Sulfonamide Antibiotics) (Verified Allergy, Unknown, 10/02/06) chlorhexidine (Verified Allergy, Unknown, RASH/SORES, 07/23/18) rofecoxib (Verified Allergy, Unknown, 10/02/06) tramadol (Verified Allergy, Unknown, PT CAN TAKE MORPHINE WITHOUT PROBLEM, 10/02/06) trazodone (Verified Allergy, Unknown, 10/02/06) alprazolam (Unverified Adverse Reaction, Unknown, 10/02/13) STATES MAKES HER "LOOPY" diazepam (Unverified Adverse Reaction, Unknown, 10/02/13) STATES IT MAKES HER "LOOPY" Past Aphunyl-Nxxffa-Kpuxsm Hx Patient Social History Tobacco Use?: No Use of E-Cig and/or Vaping dev: No Substance use?: No Alcohol Use?: No Pt feels they are or have been: No Seasonal Allergies Seasonal Allergies: No Current Status status: No status: No Advance Directives: No Communicates: Verbally Primary Language: Angolan Preferred Spoken Language: Angolan Is interpretation needed?: No Sensory deficits: Hearing impairment Past Medical History Surgeries: Hysterectomy, Joint Replacement, Orthopedic Pneumonia, COPD High Cholesterol, Hypertension Headaches /Migraines, TIA Renal Failure Pancreatitis Osteoporosis, Fibromyalgia Cataract, Eye Injury Anxiety Blood Disorders: Yes (anemia) Family Medical History Reviewed Nursing Family Hx Respiratory disorder 19 MOTHER No Pertinent Family Hx Review of Systems Constitutional: weakness EENTM: no symptoms reported Respiratory: no symptoms reported Cardiovascular: no symptoms reported Gastrointestinal: abdominal pain, nausea Physical Exam Physical Exam Vital Signs Vital Signs - First Documented 11/07/21 11/07/21 05:46 05:47 Temp 36.2 Pulse 99 Resp 24 B/P (MAP) 69/34 (46) Pulse Ox 96 O2 Delivery Nasal Cannula O2 Flow Rate 2.00 FiO2 96 Capillary Refill : Greater Than 3 Seconds Height, Weight, BMI Height: 5'7.00" Weight: 152lbs. 7.0oz. 68.948773jg; 24.87 BMI Method:Stated General Appearance: No Apparent Distress, Chronically ill HEENT: PERRL/EOMI, Other (dry mucous membranes) Neck: Normal Inspection, Supple Respiratory: Lungs Clear, No Respiratory Distress Cardiovascular: Regular Rate, Rhythm, No Murmur Gastrointestinal: Normal Bowel Sounds, Soft, Tenderness (epigastric) Extremity: Normal Inspection, No Pedal Edema Neurologic/Psychiatric: Alert, Depressed Affect Skin: Normal Color, Warm/Dry Results Results/Procedures Labs Laboratory Tests 11/07/21 06:13 11/07/21 15:05 Patient resulted labs reviewed. Imaging: Reviewed Imaging Report Assessment/Plan Admission Diagnosis Septic shock Admission Status: Inpatient Order (span 2 midnights) Reason for Inpatient Admission: IV antibiotics IV pressors Assessment and Plan Septic shock Right lower lobe pneumonia Lactic acidosis Acute kidney injury CT showed RLL PNA Procal significantly elevated Blood cultures pending Requiring pressors IV fluids Vanc and Merrem TeleICU consulted Pancreatitis Lipase elevated, epigastric abdominal pain IV fluids Clear liquids Pain regimen DVT prophylaxis: Lovenox Critical Care Critically Ill Patient Diagnosis/Problems Diagnosis/Problems (1) Septic shock Status: Acute (2) RLL pneumonia Status: Acute (3) Lactic acidosis Status: Acute (4) KANG (acute kidney injury) Status: Acute (5) Pancreatitis Status: Acute Qualifiers: Chronicity: acute BABATUNDE MACHUCA MD Nov 07, 2021 20:57
[2021-11-07] MEDS ORDERED: NON-FORMULARY MEDICATION 1 EA EA (Amitriptyline HCl 50 MG) PO SCH (21:00)
[2021-11-07] MEDS: DOCUSATE SODIUM 100 MG (COLACE) CAP PO SCH (23:11)
[2021-11-07] MEDS: AMITRIPTYLINE 25 MG (ELAVIL) TAB PO SCH (23:11)
[2021-11-08] MEDS: NOREPINEPHRINE 8 MG/250 ML 250 ML IV SCH ×6 (00:40→21:50)
[2021-11-08] MEDS: RT-ALBUTEROL/IPRATROPIUM 3 ML (DUONEB) VIAL INH SCH ×4 (02:36→21:09)
[2021-11-08] MEDS: LACTATED RINGERS 1,000 ML IV SCH ×2 (03:23→08:17)
[2021-11-08] MEDS: MEROPENEM 500 MG in NS (IVPB) 100 ML IV SCH ×3 (05:23→21:42)
[2021-11-08 05:47] LABS: HEMOGLOBIN 11.9 g/dL (11.5-16.0); MEAN PLATELET VOLUME 11.1 fL (9.0-12.2); WHITE BLOOD COUNT 12.9 10^3/uL (4.3-11.0)
[2021-11-08] MEDS: MAGNESIUM 1 GM/100 ML IVPB 100 ML IV SCH ×3 (05:56→09:33)
[2021-11-08] MEDS: POTASSIUM CL 10MEQ/50ML IVPB 50 ML IV SCH ×4 (05:56→22:53)
[2021-11-08] MEDS: KCL 20 MEQ TAB (K-DUR) PO SCH (05:56)
[2021-11-08 05:58] LABS: POTASSIUM 3.7 MMOL/L (3.6-5.0)
[2021-11-08 05:59] LABS: CALCIUM 6.7 MG/DL (8.5-10.1)
[2021-11-08 06:04] LABS: CREATININE SERUM 1.81 MG/DL (0.60-1.30); PHOSPHORUS 4.7 MG/DL (2.3-4.7)
[2021-11-08 06:07] LABS: MAGNESIUM 1.4 MG/DL (1.6-2.4)
--- NOTE | 2021-11-08 08:03 | Tele-ICU Progress Note ---
Subjective Date Seen by a Provider: Nov 08, 2021 Time Seen by a Provider: 07:57 Subjective/Events-last exam eICU porgress note 76 yo F with sepsis, KANG, cultures pending, on one lpm NC wit SpO2 99%, no resp distress, a little disoriented, On levophed 0.46 with BP 1124/55, At home uses 2 lpm @ home, good UO c/o pain left shoulder from previous surgery CT abd/pelvis shows Hiatal hernia. Right lower lobe pneumonia. Bilateral nephrolithiasis. currently on IV Vancomycin, Meropenem, CXR ok except for hiatal hernia CT head right occipital encephalomalmalaacia Sepsis Event Evaluation Height, Weight, BMI Height: 5'7.00" Weight: 152lbs. 7.0oz. 68.477002dt; 24.87 BMI Method:Stated Focused Exam Lactate Level 11/07/21 12:40: Lactic Acid Level 3.25*H 11/07/21 15:05: Lactic Acid Level 3.74*H 11/07/21 17:50: Lactic Acid Level 4.30*H Exam Exam Patient acknowledged, consented, and participated in this virtual visit which was conducted using real time audio/video Vital Signs Date Time Temp Pulse Resp B/P (MAP) Pulse Ox O2 Delivery O2 Flow Rate FiO2 11/08/21 07:41 96 Nasal Cannula 1.00 11/08/21 07:40 36.5 11/08/21 07:00 97 11/08/21 06:32 98 129/59 11/08/21 06:00 98 24 129/59 (82) 97 Nasal Cannula 3.00 11/08/21 05:50 98 142/54 11/08/21 05:22 98 143/58 11/08/21 05:00 101 18 139/52 (81) 96 Nasal Cannula 3.00 11/08/21 04:58 101 143/60 11/08/21 04:01 36.2 11/08/21 04:00 101 22 143/48 (79) 96 Nasal Cannula 3.00 11/08/21 04:00 Nasal Cannula 3.00 11/08/21 03:23 100 135/56 11/08/21 03:00 100 56 135/56 (82) 96 Nasal Cannula 3.00 11/08/21 02:36 94 Nasal Cannula 1.00 11/08/21 02:00 97 55 137/56 (83) 98 Nasal Cannula 3.00 11/08/21 01:00 97 122/44 (70) 95 Nasal Cannula 3.00 11/08/21 00:48 98 11/08/21 00:40 96 115/50 11/08/21 00:00 36.0 11/08/21 00:00 Nasal Cannula 3.00 11/08/21 00:00 96 21 115/50 (71) 95 Nasal Cannula 3.00 11/07/21 23:00 95 16 106/63 (77) 98 Nasal Cannula 3.00 11/07/21 22:01 94 116/58 11/07/21 22:00 93 64 119/42 (67) 95 Nasal Cannula 3.00 11/07/21 21:50 94 Nasal Cannula 1.00 11/07/21 21:00 94 55 116/58 (77) 95 Nasal Cannula 3.00 11/07/21 20:00 94 51 129/54 (79) 93 Nasal Cannula 3.00 11/07/21 20:00 Nasal Cannula 3.00 11/07/21 19:45 36.2 11/07/21 19:34 37.8 11/07/21 19:27 37.8 11/07/21 19:19 90 105/42 11/07/21 19:09 93 11/07/21 19:00 92 26 118/48 (71) 87 Nasal Cannula 3.00 11/07/21 18:00 95 32 98/82 (87) 98 Nasal Cannula 3.00 11/07/21 17:00 92 11 96/64 (75) 94 Nasal Cannula 3.00 11/07/21 16:00 Nasal Cannula 3.00 11/07/21 16:00 87 28 98/45 (62) 89 Nasal Cannula 3.00 11/07/21 15:31 36.5 11/07/21 15:30 95 Nasal Cannula 1.00 11/07/21 15:15 85 11/07/21 15:00 86 20 97/47 (64) 94 Nasal Cannula 3.00 11/07/21 14:00 84 18 106/48 (67) 95 Nasal Cannula 3.00 11/07/21 13:00 80 17 102/40 (60) 97 Nasal Cannula 3.00 11/07/21 12:24 82 11/07/21 12:00 36.4 11/07/21 12:00 Nasal Cannula 3.00 11/07/21 12:00 82 13 121/77 (92) 94 Nasal Cannula 3.00 11/07/21 11:15 80 26 65/38 (47) 90 Nasal Cannula 3.00 11/07/21 11:00 79 21 81/56 (64) 93 Nasal Cannula 3.00 11/07/21 10:45 79 17 91/33 (52) 95 Nasal Cannula 3.00 11/07/21 10:30 79 19 87/73 (78) 96 Nasal Cannula 3.00 11/07/21 10:15 79 28 76/36 (49) 89 Nasal Cannula 3.00 11/07/21 10:07 36.2 79 90 96 11/07/21 10:00 78 22 94/30 (51) 95 Nasal Cannula 3.00 11/07/21 09:45 79 22 85/44 (58) 91 Nasal Cannula 3.00 11/07/21 09:30 79 22 88/46 (60) 90 Nasal Cannula 3.00 11/07/21 09:20 Nasal Cannula 3.00 11/07/21 09:15 79 17 95/50 (65) 94 Nasal Cannula 3.00 11/07/21 09:04 78 11/07/21 09:00 79 20 72/31 (45) Nasal Cannula 3.00 11/07/21 08:02 79 20 105/41 97 Nasal Cannula 2.00 11/07/21 08:02 79 20 105/41 (62) 97 Nasal Cannula 2.00 I & O 11/08/21 07:00 Intake Total 5982.5 ml Output Total 2200 ml Balance 3782.5 ml Height & Weight Height: 5'7.00" Weight: 152lbs. 7.0oz. 68.133791uh; 24.87 BMI Method:Stated General Appearance: No Apparent Distress, Chronically ill HEENT: PERRL/EOMI, Other (dry mucous membranes) Neck: Normal Inspection, Supple Respiratory: Lungs Clear, No Respiratory Distress, Decreased Breath Sounds Cardiovascular: Regular Rate, Rhythm, No Murmur Capillary Refill: Greater Than 3 Seconds Peripheral Pulses: 1+ Dorsalis Pedis (R), 1+ Left Dors-Pedis (L) Gastrointestinal: normal bowel sounds, non tender, other (was having diarrhea at home) Extremity: Normal Inspection, No Pedal Edema Neurologic/Psychiatric: Alert, Oriented x3, Depressed Affect Skin: Normal Color, Warm/Dry Lymphatic: No Adenopathy Results Lab Laboratory Tests 11/07/21 06:13 11/07/21 15:05 11/08/21 05:25 Assessment/Plan Assessment/Plan sepsis, KANG, improving with hydration, will repeat lactate, await culture results, continue on same abx for now-IV vanco and meropenem, Critical Care: Critically Ill Patient Time spent with patient (mins): 30 PAOLA JORGENSEN MD Nov 08, 2021 08:03
[2021-11-08] MEDS: DOCUSATE SODIUM 100 MG (COLACE) CAP PO SCH ×2 (08:16→20:25)
[2021-11-08] MEDS ORDERED: VANCOMYCIN 1 GM/NS 250 ML IVPB IV SCH ×2 (10:00)
[2021-11-08] MEDS: ENOXAPARIN INJECTION 30 MG/0.3 ML SYR SC SCH (10:32)
--- NOTE | 2021-11-08 10:58 | Tele-ICU Progress Note ---
Subjective Date Seen by a Provider: Nov 08, 2021 Time Seen by a Provider: 10:53 Subjective/Events-last exam lactate unchanged at 4.39, patient awake with good UO, no fluid losses, on clear liquid diet and is taking fluids, no abd pain, no diarrhea on IV Vanco and meropenem, will do blood cultures will order ABG, and if needed increase hydration HCO3 has dropped from 14 to 11 Ben Jorgensen MD Sepsis Event Evaluation Height, Weight, BMI Height: 5'7.00" Weight: 152lbs. 7.0oz. 68.697733pj; 24.87 BMI Method:Stated Focused Exam Lactate Level 11/07/21 15:05: Lactic Acid Level 3.74*H 11/07/21 17:50: Lactic Acid Level 4.30*H 11/08/21 09:43: Lactic Acid Level 4.39*H Lactic Acid Level Laboratory Tests Test 11/08/21 09:43 Lactic Acid Level 4.39 MMOL/L (0.50-2.00) *H Exam Exam Patient acknowledged, consented, and participated in this virtual visit which was conducted using real time audio/video Vital Signs Date Time Temp Pulse Resp B/P (MAP) Pulse Ox O2 Delivery O2 Flow Rate FiO2 11/08/21 10:29 143/62 11/08/21 10:00 93 23 124/53 (76) 95 Nasal Cannula 3.00 11/08/21 09:00 97 23 126/54 (78) 95 Nasal Cannula 3.00 11/08/21 08:25 37.4 11/08/21 08:00 Nasal Cannula 2.00 11/08/21 08:00 99 20 139/46 (77) 96 Nasal Cannula 3.00 11/08/21 07:41 96 Nasal Cannula 1.00 11/08/21 07:40 36.5 11/08/21 07:00 97 11/08/21 07:00 96 18 138/46 (76) 97 Nasal Cannula 3.00 11/08/21 06:32 98 129/59 11/08/21 06:00 98 24 129/59 (82) 97 Nasal Cannula 3.00 11/08/21 05:50 98 142/54 11/08/21 05:22 98 143/58 11/08/21 05:00 101 18 139/52 (81) 96 Nasal Cannula 3.00 11/08/21 04:58 101 143/60 11/08/21 04:01 36.2 11/08/21 04:00 101 22 143/48 (79) 96 Nasal Cannula 3.00 11/08/21 04:00 Nasal Cannula 3.00 11/08/21 03:23 100 135/56 11/08/21 03:00 100 56 135/56 (82) 96 Nasal Cannula 3.00 11/08/21 02:36 94 Nasal Cannula 1.00 11/08/21 02:00 97 55 137/56 (83) 98 Nasal Cannula 3.00 11/08/21 01:00 97 122/44 (70) 95 Nasal Cannula 3.00 11/08/21 00:48 98 11/08/21 00:40 96 115/50 11/08/21 00:00 36.0 11/08/21 00:00 Nasal Cannula 3.00 11/08/21 00:00 96 21 115/50 (71) 95 Nasal Cannula 3.00 11/07/21 23:00 95 16 106/63 (77) 98 Nasal Cannula 3.00 11/07/21 22:01 94 116/58 11/07/21 22:00 93 64 119/42 (67) 95 Nasal Cannula 3.00 11/07/21 21:50 94 Nasal Cannula 1.00 11/07/21 21:00 94 55 116/58 (77) 95 Nasal Cannula 3.00 11/07/21 20:00 94 51 129/54 (79) 93 Nasal Cannula 3.00 11/07/21 20:00 Nasal Cannula 3.00 11/07/21 19:45 36.2 11/07/21 19:34 37.8 11/07/21 19:27 37.8 11/07/21 19:19 90 105/42 11/07/21 19:09 93 11/07/21 19:00 92 26 118/48 (71) 87 Nasal Cannula 3.00 11/07/21 18:00 95 32 98/82 (87) 98 Nasal Cannula 3.00 11/07/21 17:00 92 11 96/64 (75) 94 Nasal Cannula 3.00 11/07/21 16:00 Nasal Cannula 3.00 11/07/21 16:00 87 28 98/45 (62) 89 Nasal Cannula 3.00 11/07/21 15:31 36.5 11/07/21 15:30 95 Nasal Cannula 1.00 11/07/21 15:15 85 11/07/21 15:00 86 20 97/47 (64) 94 Nasal Cannula 3.00 11/07/21 14:00 84 18 106/48 (67) 95 Nasal Cannula 3.00 11/07/21 13:00 80 17 102/40 (60) 97 Nasal Cannula 3.00 11/07/21 12:24 82 11/07/21 12:00 36.4 11/07/21 12:00 Nasal Cannula 3.00 11/07/21 12:00 82 13 121/77 (92) 94 Nasal Cannula 3.00 11/07/21 11:15 80 26 65/38 (47) 90 Nasal Cannula 3.00 11/07/21 11:00 79 21 81/56 (64) 93 Nasal Cannula 3.00 I & O 11/08/21 07:00 Intake Total 5982.5 ml Output Total 2200 ml Balance 3782.5 ml Height & Weight Height: 5'7.00" Weight: 152lbs. 7.0oz. 68.130116rg; 24.87 BMI Method:Stated General Appearance: No Apparent Distress, Chronically ill HEENT: PERRL/EOMI, Other (dry mucous membranes) Neck: Normal Inspection, Supple Respiratory: Lungs Clear, No Respiratory Distress, Decreased Breath Sounds Cardiovascular: Regular Rate, Rhythm, No Murmur Capillary Refill: Greater Than 3 Seconds Peripheral Pulses: 1+ Dorsalis Pedis (R), 1+ Left Dors-Pedis (L) Gastrointestinal: normal bowel sounds, non tender, other (was having diarrhea at home) Extremity: Normal Inspection, No Pedal Edema Neurologic/Psychiatric: Alert, Oriented x3, Depressed Affect Skin: Normal Color, Warm/Dry Lymphatic: No Adenopathy Results Lab Laboratory Tests 11/07/21 06:13 11/07/21 15:05 11/08/21 05:25 Assessment/Plan Assessment/Plan sepsis with high lactate, will do ABG and blood cultures looks compensated with good UO, BP, going down on IV levo Ben Jorgensen MD Critical Care: Critically Ill Patient Time spent with patient (mins): 20 PAOLA JORGENSEN MD Nov 08, 2021 10:58
[2021-11-08 12:10] LABS: ABG BASE EXCESS -15.2 MMOL/L (-2.5-2.5); ABG OXYGEN SATURATION 87 % (94-100); ABG PCO2 24 MMHG (35-45); ABG PO2 56 MMHG (79-93); ABG TCO2 11.2 MMOL/L (21.0-31.0)
[2021-11-08 12:13] LABS: ABG PH 7.27 (7.37-7.43); PATIENT TEMP 36.8; VENTILATOR NO
--- NOTE | 2021-11-08 12:56 | Progress Note ---
Standard Progress Note Progress Notes/Assess & Plan Date Seen by a Provider: Nov 08, 2021 Time Seen by a Provider: 12:53 Progress/Assessment & Plan calculating delta ratio 15-12/24- = about 1.5 suggesting hypercholoremic metabolic acidosis, will start IV NaHCO3 MD JOSLYN Gama JOSEPH K MD Nov 08, 2021 12:56
[2021-11-08] MEDS: SODIUM BICARBONATE 8.4% VIAL 150 MEQ in WATER FOR INJECTION, STERILE 1,000 ML IV SCH (14:27)
--- NOTE | 2021-11-08 18:18 | Progress Note - Hospitalist ---
Subjective HPI/CC On Admission Date Seen by Provider: Nov 08, 2021 Time Seen by Provider: 08:50 Cesar Cartwright is a 76 year old female with PMH HTN, GERD, fibromyalgia, chronic pancreatitis, narcotic dependence, who presented with altered mental status. EMS was called and she was found to be profoundly hypotensive. She reports abdominal pain. She is nauseous. She denies fevers and chills. She denies chest pain. She denies shortness of breath and cough. She denies diarrhea. She had a left shoulder surgery recently. She is having some pain in her shoulder but nothing significant. She has not noticed any rash or skin changes. She denies dysuria. Subjective/Events-last exam She is feeling better. She has been having clear liquids. Her main complaint is shoulder pain which has been present since her surgery. Focused Exam Lactate Level 11/08/21 09:43: Lactic Acid Level 4.39*H 11/08/21 14:49: Lactic Acid Level 2.70*H 11/08/21 18:03: Lactic Acid Level Laboratory Tests Test 11/08/21 14:49 11/08/21 18:03 Lactic Acid Level 2.70 MMOL/L (0.50-2.00) *H Objective Exam Vital Signs Vital Signs Date Time Temp Pulse Resp B/P (MAP) Pulse Ox O2 Delivery O2 Flow Rate FiO2 11/08/21 18:00 93 127/72 (90) 95 Nasal Cannula 4.00 11/08/21 17:00 21 11/08/21 16:00 37.2 11/07/21 10:07 96 Capillary Refill : Greater Than 3 Seconds General Appearance: No Apparent Distress, Chronically ill Respiratory: Lungs Clear, No Respiratory Distress Cardiovascular: Regular Rate, Rhythm, No Murmur Gastrointestinal: Normal Bowel Sounds, Soft Extremity: Normal Inspection, No Pedal Edema Neurologic/Psychiatric: Alert, Motor Weakness Skin: Normal Color, Warm/Dry Results/Procedures Lab Laboratory Tests 11/08/21 05:25 Patient resulted labs reviewed. Imaging: Reviewed Imaging Report Assessment/Plan Assessment and Plan Assess & Plan/Chief Complaint Septic shock Right lower lobe pneumonia Lactic acidosis Acute kidney injury CT showed RLL PNA Procal significantly elevated Blood cultures with no growth Urine culture with no growth Weaning pressors as able Transition to fluids with bicarb Vanc and Merrem TeleICU following Case discussed with Dr. Rankin via telephone Pancreatitis Lipase elevated, epigastric abdominal pain IV fluids Clear liquids Pain regimen DVT prophylaxis: Lovenox Critical Care Critically Ill Patient Diagnosis/Problems Diagnosis/Problems (1) Septic shock Status: Acute (2) RLL pneumonia Status: Acute (3) Lactic acidosis Status: Acute (4) KANG (acute kidney injury) Status: Acute (5) Pancreatitis Status: Acute Qualifiers: Chronicity: acute BABATUNDE MACHUCA MD Nov 08, 2021 18:18
[2021-11-08 18:32] LABS: POTASSIUM 3.1 MMOL/L (3.6-5.0)
[2021-11-08 18:34] LABS: CALCIUM 6.7 MG/DL (8.5-10.1)
[2021-11-08 18:38] LABS: CREATININE SERUM 1.23 MG/DL (0.60-1.30)
[2021-11-08] MEDS: AMITRIPTYLINE 25 MG (ELAVIL) TAB PO SCH (20:25)
[2021-11-09] MEDS: SODIUM BICARBONATE 8.4% VIAL 150 MEQ in WATER FOR INJECTION, STERILE 1,000 ML IV SCH ×2 (01:47→13:03)
[2021-11-09] MEDS: RT-ALBUTEROL/IPRATROPIUM 3 ML (DUONEB) VIAL INH SCH ×4 (02:41→19:18)
[2021-11-09 05:51] LABS: HEMOGLOBIN 9.9 g/dL (11.5-16.0); MEAN PLATELET VOLUME 11.1 fL (9.0-12.2); WHITE BLOOD COUNT 15.9 10^3/uL (4.3-11.0)
[2021-11-09 06:07] LABS: CALCIUM 7.1 MG/DL (8.5-10.1); CREATININE SERUM 0.9 MG/DL (0.60-1.30); MAGNESIUM 1.7 MG/DL (1.6-2.4); PHOSPHORUS 2.4 MG/DL (2.3-4.7); POTASSIUM 3.1 MMOL/L (3.6-5.0)
[2021-11-09] MEDS: POTASSIUM CL 10MEQ/50ML IVPB 50 ML IV SCH ×6 (06:17→10:09)
[2021-11-09] MEDS: KCL 20 MEQ TAB (K-DUR) PO SCH (06:18)
[2021-11-09] MEDS: MAGNESIUM 1 GM/100 ML IVPB 100 ML IV SCH ×3 (06:18→07:51)
[2021-11-09] MEDS ORDERED: MEROPENEM 500 MG VIAL (MERREM) IV ONE (06:34)
[2021-11-09] MEDS: MEROPENEM 500 MG in NS (IVPB) 100 ML IV SCH ×3 (06:38→22:36)
[2021-11-09] MEDS ORDERED: ENOXAPARIN 40 MG/0.4 ML (LOVENOX) SYR SC SCH (07:30)
[2021-11-09] MEDS: DOCUSATE SODIUM 100 MG (COLACE) CAP PO SCH ×2 (07:48→20:00)
[2021-11-09] MEDS ORDERED: TROUGH ORDER-PHARMACY XX NR (09:00)
--- NOTE | 2021-11-09 09:48 | Physical Therapy Evaluation ---
PT Evaluation-General Medical Diagnosis Admission Date Nov 07, 2021 at 08:47 Medical Diagnosis: septic shock, PNA Onset Date: Nov 07, 2021 Therapy Diagnosis Therapy Diagnosis: impaired mobility Height/Weight Height (Feet): 5 Height (Inches): 7.00 Weight (Pounds): 152 Weight (Ounces): 7.0 Precautions Precautions/Isolations: Fall Prevention, Standard Precautions, Pressure Ulcer Referral Physician: Olga Lidia Reason for Referral: Evaluation/Treatment Medical History Pertinent Medical History: CAD, COPD, CVA, GERD, Heart Failure, HTN, Renal Insufficiency History of Falls (past yr): Unknown Prior Surgery (last 100 days): Yes Additional Medical History Past Medical History Surgeries: Hysterectomy, Joint Replacement, Orthopedic Pneumonia, COPD High Cholesterol, Hypertension Headaches /Migraines, TIA Renal Failure Pancreatitis Osteoporosis, Fibromyalgia Cataract, Eye Injury Anxiety Blood Disorders: Yes (anemia) Current History Patient has also had recent shoulder surgery on the left side, was supposed to start outpatient PT but has not been able to due to illness. Social History Current Living Status: sister Entry Into Home: Ramp Prior Prior Level of Function SCALE: Activities may be completed with or without assistive devices. 9-Nnkjoussei-krzhiem completes the activity by him/herself with no assistance from a helper. 5-Set-up or Clean-up Assistance-helper sets up or cleans up; patient completes activity. [place] assists only prior to or following the activity. 4-Supervision or Touching Assistance-helper provides verbal cues and/or touching/steadying and/or contact guard assistance as patient completes activity. Assistance may be provided throughout the activity or intermittently. 3-Partial/Moderate Assistance-helper does LESS THAN HALF the effort. [place] lifts, holds or supports trunk or limbs, but provides less than half the effort. 2-Substantial/Maximal Assistance-helper does MORE THAN HALF the effort. [place] lifts or holds trunk or limbs and provides more than half the effort. 4-Oycpkehfe-bbsfmj does ALL the effort. Patient does none of the effort to complete the activity. Or, the assistance of 2 or more helpers is required for the patient to complete the activity. If activity was not attempted, code reason: 7-Patient Refused. 9-Not Applicable-not attempted and the patient did not perform the activity before the current illness, exacerbation or injury. 10-Not Attempted due to Environmental Limitations-(lack of equipment, weather restraints, etc.). 88-Not Attempted due to Medical Conditions or Safety Concerns. Bed Mobility: 6 Transfers (B,C,W/C): 6 Gait: 6 Indoor Mobility (Ambulation): Independent PT Evaluation-Current Subjective Patient in bed pre tx, agrees to PT, has 7/10 pain in left shoulder. Patient refuses to get out of bed but does agree to sit to the side of the bed. Pt/Family Goals to be independent at home Objective Patient Orientation: Person, Place, Situation Attachments: SCD's, Oxygen, Garcia Catheter, IV ROM/Strength ROM Lower Extremities WNL Strength Lower Extremities grossly 4+-5/5 BLE Sensory Vision: Wears Glasses Hearing: Functional Sensation Right Lower Extremit: Impaired Sensation Left Lower Extremity: Impaired Transfers Roll Left to Right (QC): 4 Sit to Lying (QC): 3 Lying to Sitting/Side of Bed(Q: 3 Min assist for supine <-> sit, after sitting patient's O2 drops into the 80's, cued to purse lip breathe, comes back up to above 90%, shortly after goes back into the 80's, cued to purse lip breathe, comes back up into the 90's, over and over. Balance Sitting Static: Fair Sitting Dynamic: Fair Treatment supine BLE exercise x20 (AP, QS, HS) Assessment/Needs Patient in bed post tx with nurse call, phone, tray, all needs met. Patient has impaired mobility, endurance. O2 drops with activity. Rehab Potential: Fair PT Halfway Goals Halfway Goals PT Halfway Goals Time Frame: Nov 16, 2021 Roll Left & Right (QC): 6 Sit to Lying (QC): 6 Lying-Sitting on Side/Bed(QC): 6 Sit to Stand (QC): 4 Chair/Azb-lt-Jkkay Xfer(QC): 4 Walk 10 feet (QC): 4 Walk 50ft with 2 Turns (QC): 4 PT Plan Problem List Problem List: Activity Tolerance, Functional Strength, Safety, Balance, Gait, Transfer, Bed Mobility, ROM Treatment/Plan Treatment Plan: Continue Plan of Care Treatment Plan: Bed Mobility, Education, Functional Activity Oscar, Functional Strength, Gait, Safety, Therapeutic Exercise, Transfers Treatment Duration: Nov 16, 2021 Frequency: 6 times per week Estimated Hrs Per Day: .25 hour per day Patient and/or Family Agrees t: Yes Safety Risks/Education Patient Education: Correct Positioning, Safety Issues Teaching Recipient: Patient Teaching Methods: Demonstration, Discussion Response to Teaching: Reinforcement Needed Discharge Recommendations Plan Patient will perform bed mobility and transfer training, balance and endurance training, functional strengthening, gait training, and education, to improve functional mobility and independence at home. Therapy Discharge Recommendati: Scheduled Assistance, Home & Family, Post Acute PT Time/GCodes Time In: 913 Time Out: 928 Total Billed Treatment Time: 15 Total Billed Treatment 1 visit UGO MILLER PT Nov 09, 2021 09:48
[2021-11-09] MEDS ORDERED: VANCOMYCIN 1250 MG/NS 250 ML IVPB IV SCH ×2 (10:00)
--- NOTE | 2021-11-09 10:26 | Occupational Therapy Eval ---
OT Evaluation-General/PLF Medical Diagnosis Admission Date Nov 07, 2021 at 08:47 Medical Diagnosis: septic shock, PNA Onset Date: Nov 07, 2021 Therapy Diagnosis Therapy Diagnosis: Reduced ADL status Height/Weight Height (Feet): 5 Height (Inches): 7.00 Weight (Pounds): 152 Weight (Ounces): 7.0 Precautions Precautions/Isolations: Fall Prevention, Standard Precautions, Pressure Ulcer Referral Physician: Olga Lidia Referral Reason: Evaluation/Treatment Medical History Pertinent Medical History: CAD, COPD, CVA, GERD, Heart Failure, HTN, Renal Insufficiency Current History EMS found pt laying on floor besides bed. Pt was confused and was hypotensive upon arrival to ER. Pt lives at home with her sister. Her sister is her caregiver. According to pt, she was requiring mod-max assist from sister with all dressing, and bathing tasks. Her sister does all IADLs. She was using a power chair, w/c and a walker at home. Unable to distinguish when exactly she used said AD's. Reviewed History: Yes Social History Home: Single Level Current Living Status: sister Entry Into Home: Ramp ADL-Prior Level of Function SCALE: Activities may be completed with or without assistive devices. 6-Tumzmligfl-rrgixip completes the activity by him/herself with no assistance from a helper. 5-Set-up or Clean-up Assistance-helper sets up or cleans up; patient completes activity. [place] assists only prior to or following the activity. 4-Supervision or Touching Assistance-helper provides verbal cues and/or touching/steadying and/or contact guard assistance as patient completes activity. Assistance may be provided throughout the activity or intermittently. 3-Partial/Moderate Assistance-helper does LESS THAN HALF the effort. [place] lifts, holds or supports trunk or limbs, but provides less than half the effort. 2-Substantial/Maximal Assistance-helper does MORE THAN HALF the effort. [place] lifts or holds trunk or limbs and provides more than half the effort. 1-Dxpqssbds-qeeebu does ALL the effort. Patient does none of the effort to complete the activity. Or, the assistance of 2 or more helpers is required for the patient to complete the activity. If activity was not attempted, code reason: 7-Patient Refused. 9-Not Applicable-not attempted and the patient did not perform the activity before the current illness, exacerbation or injury. 10-Not Attempted due to Environmental Limitations-(lack of equipment, weather restraints, etc.). 88-Not Attempted due to Medical Conditions or Safety Concerns. Self Care: Needed Some Help Functional Cognition: Needed Some Help Drive Self: No OT Current Status Subjective Per nursing, her BP has been very low all morning. Pt laying in bed upon arrival. Pt agrees to therapy eval. Appearance Pt left laying in bed with all needs within reach. Mental Status/Objective Patient Orientation: Person Attachments: Garcia Catheter, IV, Oxygen Current Glasses/Contacts: Yes Hearing Aids: No Dentures/Partials: No Hand Dominance: Left Upper Extremity ROM Recent L shoulder surgery (September 06, according to pt) 0 degrees AROM of L shoulder flexion ~40 degrees (to pain tolerance) AAROM of L shoulder flexion Elbow-distally WFL Upper Extremity Strength Software Test Developer strength: poor-fair ADL-Treatment Eating (QC): 5 Pt eating [place] ice at OT arrival. Able to feed self independently, however anticipate assist with bilateral tasks such as cutting. BP: 65/48. RN notified. Due to low BP, no OOB/EOB activities performed at this time. Towards end of eval, BP again taken 98/75. Pt can benefit from short term OT to address ROM/strength, compensatory methods post shoulder surgery and to educate/reduce burden of care on caregivers. Education OT Patient Education: Correct positioning, Energy conservation, Modified ADL techniques, Progress toward Goal/Update tx plan, Purpose of tx/functional activities, Rehab process, Safety issues Teaching Recipient: Patient Teaching Methods: Discussion Response to Teaching: Verbalize Understanding OT Skates Operator Goals Skates Operator Goals Time Frame: Nov 23, 2021 Oral Hygiene (QC): 5 Toileting Hygiene (QC): 3 Shower/Bathe Self (QC): 2 Upper Body Dressing (QC): 3 Lower Body Dressing (QC): 2 On/Off Footwear (QC): 2 1=Demonstrate adherence to instructed precautions during ADL tasks. 2=Patient will verbalize/demonstrate understanding of assistive devices/modifications for ADL. 3=Patient will improve strength/tolerance for activity to enable patient to perform ADL's. OT Education/Plan Problem List/Assessment Assessment: Decreased Activ Tolerance, Decreased UE Strength, Impaired Coordination, Impaired Funct Balance, Impaired Self-Care Skills, Restricted Funct UE ROM Discharge Recommendations Plan/Recommendations: Continue POC Therapy Discharge Recommendati: Post Acute OT Comment ongoing assessment warranted Treatment Plan/Plan of Care Treatment,Training & Education: Yes Patient would benefit from OT for education, treatment and training to promote independence in ADL's, mobility, safety and/or upper extremity function for ADL's. Plan of Care: ADL Retraining, Caregiver Training, Functional Mobility, Group Exercise/Act as Ind, UE Funct Exercise/Act, W/C Management Training Treatment Duration: Nov 23, 2021 Frequency: 3 times per week (3-5x/week) Estimated Hrs Per Day: .25 hour per day Rehab Potential: Guarded Time/GCodes Start Time: 09:57 Stop Time: 10:07 Total Time Billed (hr/min): 10 Billed Treatment Time 1 visit Valentine Paz OT Nov 09, 2021 10:25
[2021-11-09] MEDS: ENOXAPARIN 40 MG/0.4 ML (LOVENOX) SYR SC SCH (11:01)
--- NOTE | 2021-11-09 16:15 | Progress Note - Hospitalist ---
Subjective HPI/CC On Admission Date Seen by Provider: Nov 09, 2021 Time Seen by Provider: 09:45 Cesar Cartwright is a 76 year old female with PMH HTN, GERD, fibromyalgia, chronic pancreatitis, narcotic dependence, who presented with altered mental status. EMS was called and she was found to be profoundly hypotensive. She reports abdominal pain. She is nauseous. She denies fevers and chills. She denies chest pain. She denies shortness of breath and cough. She denies diarrhea. She had a left shoulder surgery recently. She is having some pain in her shoulder but nothing significant. She has not noticed any rash or skin changes. She denies dysuria. Subjective/Events-last exam She is feeling better. She is still having some shoulder discomfort. She denies nausea and vomiting. She has a bit of abdominal pain. She denies fevers. Focused Exam Lactate Level 11/08/21 18:03: Lactic Acid Level 2.12*H 11/08/21 19:50: Lactic Acid Level 2.17*H 11/08/21 22:45: Lactic Acid Level 1.78 Objective Exam Vital Signs Vital Signs Date Time Temp Pulse Resp B/P (MAP) Pulse Ox O2 Delivery O2 Flow Rate FiO2 11/09/21 14:00 73 14 109/52 (71) 93 Nasal Cannula 4.00 11/09/21 11:56 36.9 11/07/21 10:07 96 Capillary Refill : Greater Than 3 Seconds General Appearance: No Apparent Distress, Chronically ill Respiratory: Lungs Clear, No Respiratory Distress Cardiovascular: Regular Rate, Rhythm, No Murmur Gastrointestinal: Normal Bowel Sounds, Soft Extremity: Normal Inspection, No Pedal Edema Neurologic/Psychiatric: Alert, Motor Weakness Skin: Normal Color, Warm/Dry Results/Procedures Lab Laboratory Tests 11/08/21 18:03 11/09/21 05:46 Patient resulted labs reviewed. Imaging: Reviewed Imaging Report Assessment/Plan Assessment and Plan Assess & Plan/Chief Complaint Right lower lobe pneumonia Acute on chronic respiratory failure with hypoxia CT showed RLL PNA Procal significantly elevated Blood cultures with no growth Urine culture with no growth Off pressors Stop Vanc Continue Merrem Transfer to medical floor Weaning oxygen as able, previous baseline 2 L Pancreatitis Lipase elevated, epigastric abdominal pain IV fluids Advance diet Pain regimen DVT prophylaxis: Lovenox Septic shock, resolved Lactic acidosis, resolved Acute kidney injury, resolved Diagnosis/Problems Diagnosis/Problems (1) Septic shock Status: Resolved Resolution Date/Time: 11/09/21 @ 16:18 (2) RLL pneumonia Status: Acute (3) Lactic acidosis Status: Resolved Resolution Date/Time: 11/09/21 @ 16:18 (4) KANG (acute kidney injury) Status: Resolved Resolution Date/Time: 11/09/21 @ 16:18 (5) Pancreatitis Status: Acute Qualifiers: Chronicity: acute (6) Acute on chronic respiratory failure with hypoxia Status: Acute (7) Hypokalemia Status: Acute BABATUNDE MACHUCA MD Nov 09, 2021 16:15
[2021-11-09 16:44] VITALS: BP 106/94
[2021-11-09] MEDS: LACTATED RINGERS 1,000 ML IV SCH (16:48)
[2021-11-09 19:40] VITALS: BP 123/67
[2021-11-09] MEDS: AMITRIPTYLINE 25 MG (ELAVIL) TAB PO SCH (19:59)
[2021-11-10] VITALS (8 sets, daily range): BP systolic 124–198; BP diastolic 64–98
[2021-11-10] MEDS: LACTATED RINGERS 1,000 ML IV SCH (01:48)
[2021-11-10] MEDS: RT-ALBUTEROL/IPRATROPIUM 3 ML (DUONEB) VIAL INH SCH ×4 (02:31→20:45)
[2021-11-10] MEDS: MEROPENEM 500 MG in NS (IVPB) 100 ML IV SCH ×3 (06:00→21:19)
[2021-11-10 06:12] LABS: BASOPHILS % (AUTO) 0 % (0-10); EOSINOPHILS # (AUTO) 0.5 10^3/uL (0.0-0.3); EOSINOPHILS % (AUTO) 4 % (0-10); HEMATOCRIT 28 % (35-52); HEMOGLOBIN 9.5 g/dL (11.5-16.0); LYMPHOCYTES # (AUTO) 0.9 10^3/uL (1.0-4.0); LYMPHOCYTES % (AUTO) 6 % (12-44); MEAN CORPUSCULAR HEMOGLOBIN 27 pg (25-34); MEAN CORPUSCULAR HGB CONC 34 g/dL (32-36); MEAN CORPUSCULAR VOLUME 78 fL (80-99); MONOCYTES # (AUTO) 0.9 10^3/uL (0.0-1.0); MONOCYTES % (AUTO) 6 % (0-12); NEUTROPHILS # (AUTO) 11.3 10^3/uL (1.8-7.8); NEUTROPHILS % (AUTO) 83 % (42-75); PLATELET COUNT 61 10^3/uL (130-400); WHITE BLOOD COUNT 13.7 10^3/uL (4.3-11.0)
[2021-11-10 06:32] LABS: CALCIUM 7.1 MG/DL (8.5-10.1); CREATININE SERUM 0.62 MG/DL (0.60-1.30); MAGNESIUM 1.8 MG/DL (1.6-2.4); POTASSIUM 2.8 MMOL/L (3.6-5.0)
[2021-11-10] MEDS: POTASSIUM CL 10MEQ/50ML IVPB 50 ML IV SCH ×3 (06:49→08:35)
[2021-11-10] MEDS: MAGNESIUM 1 GM/100 ML IVPB 100 ML IV SCH (06:49)
[2021-11-10] MEDS: KCL 20 MEQ TAB (K-DUR) PO SCH ×3 (06:49→12:28)
[2021-11-10] MEDS: D5 1/2 NS W/KCL 20 MEQ/L 1,000 ML IV SCH (08:33)
[2021-11-10] MEDS: ENOXAPARIN 40 MG/0.4 ML (LOVENOX) SYR SC SCH (08:33)
[2021-11-10] MEDS: DOCUSATE SODIUM 100 MG (COLACE) CAP PO SCH ×2 (08:33→20:45)
--- NOTE | 2021-11-10 09:16 | Physical Therapy Daily Note ---
PT Daily Note-Current Subjective Upon arrival, pt was supine in bed. Pt states that she didn't sleep very well last night. Pt rates pain in shoulder /10. Pt agrees to PT. Pain Section J - Health Conditions 1. Rarely or not at all 2. Occasionally 3. Frequently 4. Almost constantly 8. Unable to answer Pain Effect on Sleep: 4 Pain Interference with Therapy: 3 Pain Interference w/Day-to-Day: 4 Appearance Pt was covered in bed, with O2 on. Had call light and tray in reach. Mental Status Patient Orientation: Person, Situation Attachments: Oxygen Transfers SCALE: Activities may be completed with or without assistive devices. 7-Fnsvwadaqj-pbrqwqe completes the activity by him/herself with no assistance from a helper. 5-Set-up or Clean-up Assistance-helper sets up or cleans up; patient completes activity. [place] assists only prior to or following the activity. 4-Supervision or Touching Assistance-helper provides verbal cues and/or touching/steadying and/or contact guard assistance as patient completes activity. Assistance may be provided throughout the activity or intermittently. 3-Partial/Moderate Assistance-helper does LESS THAN HALF the effort. [place] lifts, holds or supports trunk or limbs, but provides less than half the effort. 2-Substantial/Maximal Assistance-helper does MORE THAN HALF the effort. [place] lifts or holds trunk or limbs and provides more than half the effort. 5-Kneefzmqj-ckpipf does ALL the effort. Patient does none of the effort to complete the activity. Or, the assistance of 2 or more helpers is required for the patient to complete the activity. If activity was not attempted, code reason: 7-Patient Refused. 9-Not Applicable-not attempted and the patient did not perform the activity before the current illness, exacerbation or injury. 10-Not Attempted due to Environmental Limitations-(lack of equipment, weather restraints, etc.). 88-Not Attempted due to Medical Conditions or Safety Concerns. Gait Training Does the Patient Walk?: No and Walking Goal IS indicated Exercises Supine Ex: Ankle pumps, Heel Slides, Hip abd/add Supine Reps: 10 Treatments Pt completed all activities listed above, pts SAO2 was taken at the beginning, during and after tx session. At the beginning O2 went down to high 80s, pt instructed to purse breathe, pts O2 remain in the 90s and above during and after session. Pt took frequent rest breaks to keep O2 at normal level during session. Once PT was concluded, pt was supine in bed with call light and tray in reach and all needs met. Assessment Current Status: Fair Progress Pt would benefit from continued PT to address strength, activity tolerance and transfers. PT Senior Living Goals Technical Services Rep Goals PT Senior Living Goals Time Frame: Nov 16, 2021 Roll Left & Right (QC): 6 Sit to Lying (QC): 6 Lying-Sitting on Side/Bed(QC): 6 Sit to Stand (QC): 4 Chair/Msk-jo-Ifbjy Xfer(QC): 4 Walk 10 feet (QC): 4 Walk 50ft with 2 Turns (QC): 4 PT Plan Problem List Problem List: Activity Tolerance, Functional Strength, Transfer Treatment/Plan Treatment Plan: Continue Plan of Care Treatment Plan: Bed Mobility, Education, Functional Activity Oscar, Functional Strength, Gait, Safety, Therapeutic Exercise, Transfers Treatment Duration: Nov 16, 2021 Frequency: 6 times per week Estimated Hrs Per Day: .25 hour per day Patient and/or Family Agrees t: Yes Time/GCodes Time In: 0814 Time Out: 0840 Total Billed Treatment Time: 26 Total Billed Treatment 1 EX (2) PETER AYALA PTA Nov 10, 2021 09:16
[2021-11-10] MEDS ORDERED: RT-ALBUTEROL/IPRATROPIUM 3 ML (DUONEB) VIAL INH PRN (11:00)
--- NOTE | 2021-11-10 12:53 | Progress Note - Hospitalist ---
Subjective HPI/CC On Admission Date Seen by Provider: Nov 10, 2021 Time Seen by Provider: 10:15 Cesar Cartwright is a 76 year old female with PMH HTN, GERD, fibromyalgia, chronic pancreatitis, narcotic dependence, who presented with altered mental status. EMS was called and she was found to be profoundly hypotensive. She reports abdominal pain. She is nauseous. She denies fevers and chills. She denies chest pain. She denies shortness of breath and cough. She denies diarrhea. She had a left shoulder surgery recently. She is having some pain in her shoulder but nothing significant. She has not noticed any rash or skin changes. She denies dysuria. Subjective/Events-last exam She is feeling better. She did not get up with therapy, but says she did walk to the bathroom with her walker. She has been tolerating her diet without issue. Focused Exam Lactate Level 11/08/21 18:03: Lactic Acid Level 2.12*H 11/08/21 19:50: Lactic Acid Level 2.17*H 11/08/21 22:45: Lactic Acid Level 1.78 Objective Exam Vital Signs Vital Signs Date Time Temp Pulse Resp B/P (MAP) Pulse Ox O2 Delivery O2 Flow Rate FiO2 11/10/21 11:29 36.8 89 20 147/81 (103) 92 Nasal Cannula 1.00 11/10/21 08:13 24 Capillary Refill : Greater Than 3 Seconds General Appearance: No Apparent Distress, Chronically ill Respiratory: Lungs Clear, No Respiratory Distress Cardiovascular: Regular Rate, Rhythm, No Murmur Gastrointestinal: Normal Bowel Sounds, Soft Extremity: Normal Inspection, No Pedal Edema Neurologic/Psychiatric: Alert, Normal Mood/Affect Skin: Normal Color, Warm/Dry Results/Procedures Lab Laboratory Tests 11/10/21 06:03 Patient resulted labs reviewed. Imaging: Reviewed Imaging Report Assessment/Plan Assessment and Plan Assess & Plan/Chief Complaint Right lower lobe pneumonia Acute on chronic respiratory failure with hypoxia CT showed RLL PNA Procal significantly elevated Blood cultures with no growth Urine culture with no growth Continue Merrem Weaning oxygen as able, previous baseline 2 L Debility PT/OT May need HH on discharge DVT prophylaxis: Lovenox Septic shock, resolved Lactic acidosis, resolved Acute kidney injury, resolved Pancreatitis, resolved Diagnosis/Problems Diagnosis/Problems (1) Septic shock Status: Resolved Resolution Date/Time: 11/09/21 @ 16:18 (2) RLL pneumonia Status: Acute (3) Lactic acidosis Status: Resolved Resolution Date/Time: 11/09/21 @ 16:18 (4) KANG (acute kidney injury) Status: Resolved Resolution Date/Time: 11/09/21 @ 16:18 (5) Pancreatitis Status: Resolved Qualifiers: Chronicity: acute Resolution Date/Time: 11/10/21 @ 12:57 (6) Acute on chronic respiratory failure with hypoxia Status: Acute (7) Hypokalemia Status: Acute BABATUNDE MACHUCA MD Nov 10, 2021 12:53
[2021-11-10] MEDS: fentaNYL INJ 100 MCG/2 ML AMP IVP PRN (19:50)
[2021-11-10] MEDS: AMITRIPTYLINE 25 MG (ELAVIL) TAB PO SCH (20:45)
[2021-11-10] MEDS: ANTACID SUSP 30 ML UDC (MYLANTA) PO PRN (21:15)
[2021-11-11] MEDS: fentaNYL INJ 100 MCG/2 ML AMP IVP PRN ×2 (00:08→05:55)
[2021-11-11] MEDS: D5 1/2 NS W/KCL 20 MEQ/L 1,000 ML IV SCH ×3 (00:12→15:49)
[2021-11-11] MEDS: RT-ALBUTEROL/IPRATROPIUM 3 ML (DUONEB) VIAL INH SCH ×4 (02:54→20:15)
[2021-11-11 03:48] VITALS: BP 162/85
[2021-11-11 04:24] LABS: POTASSIUM 3.3 MMOL/L (3.6-5.0)
[2021-11-11 04:25] LABS: CALCIUM 8.3 MG/DL (8.5-10.1)
[2021-11-11 04:29] LABS: CREATININE SERUM 0.74 MG/DL (0.60-1.30)
[2021-11-11 04:32] LABS: MAGNESIUM 1.9 MG/DL (1.6-2.4)
[2021-11-11] MEDS: MAGNESIUM 1 GM/100 ML IVPB 100 ML IV SCH (04:34)
[2021-11-11 05:06] LABS: BASOPHILS % (AUTO) 0 % (0-10); EOSINOPHILS # (AUTO) 0.4 10^3/uL (0.0-0.3); EOSINOPHILS % (AUTO) 3 % (0-10); HEMATOCRIT 32 % (35-52); HEMOGLOBIN 10.8 g/dL (11.5-16.0); LYMPHOCYTES # (AUTO) 1.2 10^3/uL (1.0-4.0); LYMPHOCYTES % (AUTO) 8 % (12-44); MEAN CORPUSCULAR HEMOGLOBIN 26 pg (25-34); MEAN CORPUSCULAR HGB CONC 34 g/dL (32-36); MEAN CORPUSCULAR VOLUME 79 fL (80-99); MEAN PLATELET VOLUME 10.7 fL (9.0-12.2); MONOCYTES # (AUTO) 1.6 10^3/uL (0.0-1.0); MONOCYTES % (AUTO) 11 % (0-12); NEUTROPHILS # (AUTO) 10.6 10^3/uL (1.8-7.8); NEUTROPHILS % (AUTO) 73 % (42-75); PLATELET COUNT 75 10^3/uL (130-400); WHITE BLOOD COUNT 14.4 10^3/uL (4.3-11.0)
[2021-11-11] MEDS ORDERED: POTASSIUM CL 10MEQ/50ML IVPB 50 ML IV SCH (05:15)
[2021-11-11] MEDS: KCL 20 MEQ TAB (K-DUR) PO SCH (05:40)
[2021-11-11] MEDS: MEROPENEM 500 MG in NS (IVPB) 100 ML IV SCH ×3 (05:41→22:40)
[2021-11-11] MEDS ORDERED: MAGNESIUM 1 GM/100 ML IVPB 100 ML IV SCH (06:00)
[2021-11-11] MEDS ORDERED: MAGNESIUM 1 GM/100 ML IVPB 100 ML IV ONE (06:45)
[2021-11-11 07:14] VITALS: BP 189/98
[2021-11-11] MEDS: ANTACID SUSP 30 ML UDC (MYLANTA) PO PRN ×2 (08:34→14:27)
[2021-11-11] MEDS: ENOXAPARIN 40 MG/0.4 ML (LOVENOX) SYR SC SCH (08:36)
[2021-11-11] MEDS: DOCUSATE SODIUM 100 MG (COLACE) CAP PO SCH ×2 (08:37→19:13)
[2021-11-11] MEDS: LOPERAMIDE 2 MG (IMODIUM) TABLET PO PRN ×2 (11:23→14:28)
--- NOTE | 2021-11-11 11:29 | Progress Note - Hospitalist ---
Subjective HPI/CC On Admission Date Seen by Provider: Nov 11, 2021 Time Seen by Provider: 11:00 Cesar Cartwright is a 76 year old female with PMH HTN, GERD, fibromyalgia, chronic pancreatitis, narcotic dependence, who presented with altered mental status. EMS was called and she was found to be profoundly hypotensive. She reports abdominal pain. She is nauseous. She denies fevers and chills. She denies chest pain. She denies shortness of breath and cough. She denies diarrhea. She had a left shoulder surgery recently. She is having some pain in her shoulder but nothing significant. She has not noticed any rash or skin changes. She denies dysuria. Subjective/Events-last exam She is tired today. She didn't sleep well last night. She is coughing up phlegm. She has some abdominal pain when she coughs. She has been up and walking to the bathroom with her walker. Focused Exam Lactate Level 11/08/21 18:03: Lactic Acid Level 2.12*H 11/08/21 19:50: Lactic Acid Level 2.17*H 11/08/21 22:45: Lactic Acid Level 1.78 Objective Exam Vital Signs Vital Signs Date Time Temp Pulse Resp B/P (MAP) Pulse Ox O2 Delivery O2 Flow Rate FiO2 11/11/21 08:30 Nasal Cannula 3.00 11/11/21 08:19 93 11/11/21 07:14 36.0 83 24 189/98 (128) 11/10/21 19:53 96 Capillary Refill : Greater Than 3 Seconds General Appearance: No Apparent Distress, Chronically ill Respiratory: No Respiratory Distress, Decreased Breath Sounds Cardiovascular: Regular Rate, Rhythm, No Murmur Gastrointestinal: Normal Bowel Sounds, Soft Extremity: Normal Inspection, No Pedal Edema Neurologic/Psychiatric: Alert, Normal Mood/Affect Skin: Normal Color, Warm/Dry Results/Procedures Lab Laboratory Tests 11/11/21 04:00 11/11/21 04:50 Patient resulted labs reviewed. Imaging: Reviewed Imaging Report Assessment/Plan Assessment and Plan Assess & Plan/Chief Complaint Right lower lobe pneumonia Acute on chronic respiratory failure with hypoxia CT showed RLL PNA Procal significantly elevated Blood cultures with no growth Urine culture with no growth Continue Merrem Weaning oxygen as able, previous baseline 2 L Thrombocytopenia Likely secondary to infection Improving, monitor Hypokalemia Hypomagnesemia Monitor and replace electrolytes as needed Debility PT/OT May need HH on discharge DVT prophylaxis: Lovenox Septic shock, resolved Lactic acidosis, resolved Acute kidney injury, resolved Pancreatitis, resolved Diagnosis/Problems Diagnosis/Problems (1) Septic shock Status: Resolved Resolution Date/Time: 11/09/21 @ 16:18 (2) RLL pneumonia Status: Acute (3) Lactic acidosis Status: Resolved Resolution Date/Time: 11/09/21 @ 16:18 (4) KANG (acute kidney injury) Status: Resolved Resolution Date/Time: 11/09/21 @ 16:18 (5) Pancreatitis Status: Resolved Qualifiers: Chronicity: acute Resolution Date/Time: 11/10/21 @ 12:57 (6) Acute on chronic respiratory failure with hypoxia Status: Acute (7) Hypokalemia Status: Acute BABATUNDE MACHUCA MD Nov 11, 2021 11:29
[2021-11-11 11:31] VITALS: BP 175/83
[2021-11-11 15:48] VITALS: BP 168/97
[2021-11-11] MEDS: AMITRIPTYLINE 25 MG (ELAVIL) TAB PO SCH (19:12)
[2021-11-11 19:34] VITALS: BP 179/98
[2021-11-11] MEDS: ONDANSETRON 4 MG/2 ML (SDV) Z0FRAN IV PRN (20:01)
[2021-11-12] VITALS: BP 147/74
[2021-11-12] MEDS: RT-ALBUTEROL/IPRATROPIUM 3 ML (DUONEB) VIAL INH SCH ×2 (02:26→07:17)
[2021-11-12 03:47] VITALS: BP 150/85
[2021-11-12] MEDS: MEROPENEM 500 MG in NS (IVPB) 100 ML IV SCH (06:05)
[2021-11-12] MEDS: D5 1/2 NS W/KCL 20 MEQ/L 1,000 ML IV SCH (06:11)
[2021-11-12 06:32] LABS: POTASSIUM 4.4 MMOL/L (3.6-5.0)
[2021-11-12 06:33] LABS: CALCIUM 7.6 MG/DL (8.5-10.1)
[2021-11-12 06:38] LABS: CREATININE SERUM 0.58 MG/DL (0.60-1.30)
[2021-11-12] MEDS: KCL 20 MEQ TAB (K-DUR) PO SCH (06:39)
[2021-11-12 06:40] LABS: MAGNESIUM 1.6 MG/DL (1.6-2.4)
[2021-11-12] MEDS: MAGNESIUM 1 GM/100 ML IVPB 100 ML IV SCH ×3 (06:47→09:14)
[2021-11-12 07:29] VITALS: BP 162/79
[2021-11-12] MEDS: ENOXAPARIN 40 MG/0.4 ML (LOVENOX) SYR SC SCH (09:13)
[2021-11-12] MEDS: DOCUSATE SODIUM 100 MG (COLACE) CAP PO SCH (09:14)
--- NOTE | 2021-11-12 09:42 | Discharge Inst-Simple/Standard ---
Discharge Inst-Standard Discharge Medications New, Converted or Re-Newed RX: Transmitted to Pharmacy Patient Instructions/Follow Up Plan of Care/Instructions/FU: Please continue to take your medications as written. Please follow up with your primary care doctor to follow up this hospital stay. Activity as Tolerated: Yes Discharge Diet: No Restrictions Return to The Hospital For: Chest pain, shortness of breath, fever, weakness, if you feel you are getting worse. ABIMAEL ZULUAGA MD Nov 12, 2021 09:42
--- NOTE | 2021-11-12 10:28 | Physical Therapy Daily Note ---
PT Daily Note-Current Subjective Patient is very agreeable to participate with PT. She states she wants to go home today. Pain Section J - Health Conditions 1. Rarely or not at all 2. Occasionally 3. Frequently 4. Almost constantly 8. Unable to answer Pain Effect on Sleep: 4 Pain Interference with Therapy: 3 Pain Interference w/Day-to-Day: 4 Mental Status Patient Orientation: Normal For Age Attachments: Oxygen, IV Transfers SCALE: Activities may be completed with or without assistive devices. 3-Tyicdlzsaq-teuwfvu completes the activity by him/herself with no assistance from a helper. 5-Set-up or Clean-up Assistance-helper sets up or cleans up; patient completes activity. [place] assists only prior to or following the activity. 4-Supervision or Touching Assistance-helper provides verbal cues and/or touching/steadying and/or contact guard assistance as patient completes activity. Assistance may be provided throughout the activity or intermittently. 3-Partial/Moderate Assistance-helper does LESS THAN HALF the effort. [place] lifts, holds or supports trunk or limbs, but provides less than half the effort. 2-Substantial/Maximal Assistance-helper does MORE THAN HALF the effort. [place] lifts or holds trunk or limbs and provides more than half the effort. 1-Hkxwxoqqi-cpzbds does ALL the effort. Patient does none of the effort to complete the activity. Or, the assistance of 2 or more helpers is required for the patient to complete the activity. If activity was not attempted, code reason: 7-Patient Refused. 9-Not Applicable-not attempted and the patient did not perform the activity before the current illness, exacerbation or injury. 10-Not Attempted due to Environmental Limitations-(lack of equipment, weather restraints, etc.). 88-Not Attempted due to Medical Conditions or Safety Concerns. Lying to Sitting/Side of Bed(Q: 6 Sit to Stand (QC): 6 Chair/Gyf-bd-Bxzfq Xfer(QC): 6 Gait Training Distance: 30' Walk 10 feet (QC): 6 Gait Assistive Device: FWW slow, functional gait sequence Assessment Patient remains up in recliner with needs met. PT to dismiss patient from services at this time with patient returning to home. PT Senior Living Goals Senior Living Goals PT Senior Living Goals Time Frame: Nov 16, 2021 Roll Left & Right (QC): 6 Sit to Lying (QC): 6 Lying-Sitting on Side/Bed(QC): 6 Sit to Stand (QC): 4 Chair/Twc-dl-Bnram Xfer(QC): 4 Walk 10 feet (QC): 4 Walk 50ft with 2 Turns (QC): 4 PT Plan Treatment/Plan Treatment Plan: Discontinue PT Treatment Plan: Bed Mobility, Education, Functional Activity Oscar, Functional Strength, Gait, Safety, Therapeutic Exercise, Transfers Treatment Duration: Nov 16, 2021 Frequency: 6 times per week Estimated Hrs Per Day: .25 hour per day Patient and/or Family Agrees t: Yes Time/GCodes Time In: 930 Time Out: 941 Total Billed Treatment Time: 11 Total Billed Treatment 1 visit FA 11 min MARGARITO GREEN PT Nov 12, 2021 10:28
[2021-11-12 12:28] VITALS: BP 165/77
[2021-11-12 14:14] VITALS: BP 165/77
== END 2021-11-12 14:10 | disposition home or self-care (01) | DRG 871 ==
LOC: EDUNIT# 05:43 → ER FS 05:45 → ICU 08:47 → 4TH 11-09 15:21
PROVIDERS: ADMIT Internal Medicine; ATTEND Internal Medicine
DX: A41.9 Sepsis, unspecified organism (principal); J18.9 Pneumonia, unspecified organism; R65.21 Severe sepsis with septic shock; K85.90 Acute pancreatitis without necrosis or infection, unspecified; J96.21 Acute and chronic respiratory failure with hypoxia; N17.9 Acute kidney failure, unspecified; J44.0 Chronic obstructive pulmonary disease with (acute) lower respiratory infection; Z66 Do not resuscitate; Z20.822 Contact with and (suspected) exposure to COVID-19; I25.10 Atherosclerotic heart disease of native coronary artery without angina pectoris; I10 Essential (primary) hypertension; E78.00 Pure hypercholesterolemia, unspecified; M81.0 Age-related osteoporosis without current pathological fracture; E87.6 Hypokalemia; M79.7 Fibromyalgia; K21.9 Gastro-esophageal reflux disease without esophagitis; H91.90 Unspecified hearing loss, unspecified ear; F41.9 Anxiety disorder, unspecified; D69.6 Thrombocytopenia, unspecified; E83.42 Hypomagnesemia; Z88.6 Allergy status to analgesic agent; Z88.2 Allergy status to sulfonamides
CPT/HCPCS: 36415; 36569; 51702; 70450; 71045; 74176; 76937; 80048; 80053; 80202; 81000; 82274; 82805; 82947; 83605; 83690; 83735; 84100; 84145; 84484; 85007; 85025; 85027; 85610; 85730; 87040; 87077; 87088; 87186; 87636; 93005; 94640; 94760; 94761

== ENCOUNTER 2021-12-02 19:24 | Inpatient (IN) | payer MEDICAID ==
[~2021-12-02] VITALS: Ht 170.2 cm; Wt 67.2 kg
[~2021-12-02 19:24] MED LIST changes: +ERGO1250 PO; +FAMO20TA5 PO; +LISI40TA9 PO; +OXYC5TAB PO; +[UNRECOGNIZED DRUG - CODE] PO
--- NOTE | 2021-12-02 19:45 | ED General ---
General Stated Complaint: CHEST PAIN Source of Information: Patient History of Present Illness Date Seen by Provider: Dec 02, 2021 Time Seen by Provider: 19:25 Initial Comments 76-year-old female presenting with complaints of continued chest pain with wheezing and chest tightness that has been present ever since she was discharged from the hospital on November 12. She states that she has not been able to follow-up with the clinic because her transportation keeps following through with canceling on her. She was supposed to go to the clinic tomorrow but again her transportation canceled so she came to the emergency department. She states that she feels like she cannot lay back because of chest tightness. She has continued to cough up thick yellow to green-colored sputum for the last 3 weeks. She denies having fever or chills. Timing/Duration: Constant (For the last 20 days) Severity: Severe Modifying Factors: worse with Movement, worse with Other (Reclining makes it worse) Associated Systoms: Chest Pain, Cough; No Diaphoresis, No Fever/Chills, No Headaches; Loss of Appetite, Malaise; No Nausea/Vomiting, No Rash, No Seizure; Shortness of Air; No Syncope; Weakness Allergies and Home Medications Allergies Coded Allergies: amylase (Unverified Allergy, Mild, 05/04/10) aspirin (Unverified Allergy, Mild, 08/09/08) flurbiprofen (Unverified Allergy, Mild, 07/23/08) lipase (Unverified Allergy, Mild, 05/04/10) protease (Unverified Allergy, Mild, 05/04/10) NSAIDS (Non-Steroidal Anti-Inflamma (Verified Allergy, Unknown, 10/02/06) Penicillins (Verified Allergy, Unknown, 10/02/06) Sulfa (Sulfonamide Antibiotics) (Verified Allergy, Unknown, 10/02/06) chlorhexidine (Verified Allergy, Unknown, RASH/SORES, 07/23/18) rofecoxib (Verified Allergy, Unknown, 10/02/06) tramadol (Verified Allergy, Unknown, PT CAN TAKE MORPHINE WITHOUT PROBLEM, 10/02/06) trazodone (Verified Allergy, Unknown, 10/02/06) alprazolam (Unverified Adverse Reaction, Unknown, 10/02/13) STATES MAKES HER "LOOPY" diazepam (Unverified Adverse Reaction, Unknown, 10/02/13) STATES IT MAKES HER "LOOPY" Patient Home Medication List Home Medication List Reviewed: Yes Albuterol/Ipratropium (Combivent Respimat Inhal Blain) 4 Gm Aero, 2 PUFF INH QID PRN for SHORTNESS OF BREATH, (Reported) Entered as Reported by: LATISHA LOMELI on 07/23/18932 Amitriptyline HCl (Amitriptyline HCl) 50 Mg Tablet, 50 MG PO HS, (Reported) Entered as Reported by: LATISHA LOMELI on 07/23/18932 Clopidogrel Bisulfate (Clopidogrel) 75 Mg Tablet, 75 MG PO DAILY, (Reported) Entered as Reported by: LATISHA LOMELI on 07/23/18932 Diphenoxylate HCl/Atropine (Diphenoxylate-Atrop 2.5-0.025) 2.5 Mg-0.025 Mg Tablet, 1 TAB PO QID PRN for DIARRHEA, (Reported) Entered as Reported by: LATISHA LOMELI on 07/23/18932 Ergocalciferol (Vitamin D2) (Vitamin D2) 1,250 Mcg (90902 Unit) Capsule, 1,250 MCG PO SAT, (Reported) Entered as Reported by: GM JACKSON on 11/07/21 124 Famotidine (Famotidine) 20 Mg Tablet, 20 MG PO BID PRN for HEARTBURN, (Reported) Entered as Reported by: GM JACKSON on 11/07/21 124 Gabapentin (Gabapentin) 600 Mg Tablet, 600 MG PO TID, (Reported) Entered as Reported by: GM JACKSON on 11/07/21 124 Hydroxyzine HCl (Hydroxyzine HCl) 25 Mg Tablet, 25 MG PO QID PRN for ITCHING/ANXIETY, (Reported) Entered as Reported by: LATISHA LOMELI on 07/23/18932 Lansoprazole (Lansoprazole) 30 Mg Capsule.dr, 30 MG PO DAILY, (Reported) Entered as Reported by: LATISHA LOMELI on 07/23/18932 Lisinopril (Lisinopril) 40 Mg Tablet, 20 MG PO BID, (Reported) Entered as Reported by: GM JACKSON on 11/07/21 124 Oxycodone HCl (Oxycodone HCl) 5 Mg Tablet, 5 MG PO Q4H PRN for PAIN-SEVERE (8- 10), (Reported) Entered as Reported by: GM JACKSON on 11/07/21 1242 Pseudoephedrine HCl (Nasal Decongestant) 30 Mg Tablet, 30 MG PO Q4H PRN for CONGESTION, (Reported) Entered as Reported by: GM JACKSON on 11/07/21 1242 Sumatriptan Succinate (Sumatriptan Succinate) 100 Mg Tablet, 100 MG PO UD PRN for MIGRAINE, (Reported) Entered as Reported by: LATISHA LOMELI on 07/23/18 0933 Review of Systems Review of Systems Constitutional: No chills, No fever; malaise EENTM: no symptoms reported Respiratory: see HPI Cardiovascular: see HPI Gastrointestinal: No nausea, No vomiting Genitourinary: No dysuria Musculoskeletal: No back pain Skin: no symptoms reported Psychiatric/Neurological: No Symptoms Reported Past Aduuqhv-Aecnlv-Cpnqzq Hx Seasonal Allergies Seasonal Allergies: No Past Medical History Surgery/Hospitalization HX: COPD, Pneumonia, Hysterectomy, Hypertension, Hypercholesterolemia, Migraine headaches, Renal failure, Pancreatitis, anxiety Surgeries: Yes (knee arthroscopy, removal superficial implant, shoulder fx tx, ankle fx tx,) Hysterectomy, Joint Replacement, Orthopedic Respiratory: Yes (Chronic airway obstruction) Pneumonia, COPD Cardiac: Yes (CAD, chest pain, unspecified essential hypertension, chest wall pain) High Cholesterol, Hypertension Neurological: Yes Headaches /Migraines, TIA Reproductive Disorders: No Genitourinary: Yes (Urinary tract infection) Renal Failure Pancreatitis Musculoskeletal: Yes (herniated intervetebral disk, chronic knee pain, chronic neck pain, back pa) Osteoporosis, Fibromyalgia Endocrine: Yes (hypokalemia, hypomagnesemia) HEENT: No Cataract, Eye Injury Cancer: Yes Psychosocial: Yes (chronic narcotic dependence, drug-seeking behavior, excessive somnolence di) Anxiety Integumentary: No Blood Disorders: Yes (anemia) Family Medical History Respiratory disorder 19 MOTHER No Pertinent Family Hx Physical Exam Vital Signs Vital Signs - First Documented 12/02/21 19:25 Temp 36.8 Pulse 95 Resp 22 B/P (MAP) 216/103 (140) Pulse Ox 97 O2 Delivery Room Air Capillary Refill : Height, Weight, BMI Height: 5'7.00" Weight: 152lbs. 7.0oz. 68.298186qn; 25.53 BMI Method:Stated General Appearance: Chronically ill HEENT: Pharynx Normal Neck: Full Range of Motion, Normal Inspection, Non Tender, Supple Respiratory: Chest Non Tender, No Accessory Muscle Use, No Respiratory Distress, Decreased Breath Sounds Cardiovascular: Regular Rate, Rhythm, Normal Peripheral Pulses Gastrointestinal: Normal Bowel Sounds, No Pulsatile Mass, Non Tender, Soft Rectal: Deferred Extremity: Normal Capillary Refill, Normal Inspection, No Pedal Edema Neurologic/Psychiatric: Alert, Oriented x3 Skin: Normal Color, Warm/Dry Procedures/Interventions IV : Location: Right Site: Forearm IV Catheter Type: Peripheral IV IV Catheter Gauge: 20 Progress After obtaining verbal consent from the patient I attempted to place a peripheral IV using ultrasound guidance. After cleaning the forearm with ChloraPrep I applied sterile ultrasound gel and used a sterile sleeve on the ultrasound probe. I did not appreciate any significant veins present that I felt were suitable for IV placement. Attempted a 24 gauge IV in the right hand. Flash was obtained but the IV infiltrated when trying to flush the IV. Rather than delay her transfer any further I stopped trying to place any further IV access. She did not seem ill enough currently that she would require a central line. Will consult PICC line team at [facility] for placement of a PICC in the morning. Progress/Results/Core Measures Suspected Sepsis SIRS Temperature: Pulse: Respiratory Rate: Laboratory Tests 12/02/21 19:50: White Blood Count 6.9 Blood Pressure / Mean: Laboratory Tests 12/02/21 19:50: Creatinine 0.95, INR Comment 1.2, Platelet Count 148, Total Bilirubin 0.2 Results/Orders Lab Results Laboratory Tests Test 12/02/21 19:50 Range/Units White Blood Count 6.9 4.3-11.0 10^3/uL Red Blood Count 4.23 3.80-5.11 10^6/uL Hemoglobin 11.0 L 11.5-16.0 g/dL Hematocrit 34 L 35-52 % Mean Corpuscular Volume 79 L 80-99 fL Mean Corpuscular Hemoglobin 26 25-34 pg Mean Corpuscular Hemoglobin Concent 33 32-36 g/dL Red Cell Distribution Width 15.5 H 10.0-14.5 % Platelet Count 148 130-400 10^3/uL Mean Platelet Volume 10.6 9.0-12.2 fL Immature Granulocyte % (Auto) 2 % Neutrophils (%) (Auto) 49 42-75 % Lymphocytes (%) (Auto) 38 12-44 % Monocytes (%) (Auto) 9 0-12 % Eosinophils (%) (Auto) 2 0-10 % Basophils (%) (Auto) 1 0-10 % Neutrophils # (Auto) 3.3 1.8-7.8 10^3/uL Lymphocytes # (Auto) 2.6 1.0-4.0 10^3/uL Monocytes # (Auto) 0.7 0.0-1.0 10^3/uL Eosinophils # (Auto) 0.1 0.0-0.3 10^3/uL Basophils # (Auto) 0.1 0.0-0.1 10^3/uL Immature Granulocyte # (Auto) 0.1 0.0-0.1 10^3/uL Prothrombin Time 15.5 H 12.2-14.7 SEC INR Comment 1.2 0.8-1.4 Activated Partial Thromboplast Time 30 24-35 SEC Sodium Level 141 135-145 MMOL/L Potassium Level 2.6 L 3.6-5.0 MMOL/L Chloride Level 107 98-107 MMOL/L Carbon Dioxide Level 22 21-32 MMOL/L Anion Gap 12 5-14 MMOL/L Blood Urea Nitrogen 14 7-18 MG/DL Creatinine 0.95 0.60-1.30 MG/DL Estimat Glomerular Filtration Rate 62 BUN/Creatinine Ratio 15 Glucose Level 98 70-105 MG/DL Calcium Level 8.5 8.5-10.1 MG/DL Corrected Calcium 9.3 8.5-10.1 MG/DL Magnesium Level 1.4 L 1.6-2.4 MG/DL Total Bilirubin 0.2 0.1-1.0 MG/DL Aspartate Amino Transf (AST/SGOT) 40 H 5-34 U/L Alanine Aminotransferase (ALT/SGPT) 15 0-55 U/L Alkaline Phosphatase 95 40-136 U/L Troponin I < 0.30 <0.30 NG/ML Pro-B-Type Natriuretic Peptide 647.6 H <450.0 PG/ML Total Protein 5.9 L 6.4-8.2 GM/DL Albumin 3.0 L 3.2-4.5 GM/DL Lipase 78 8-78 U/L Influenza Type A (RT-PCR) Not Detected Not Detecte Influenza Type B (RT-PCR) Not Detected Not Detecte SARS-CoV-2 RNA (RT-PCR) Detected H Not Detecte My Orders Orders - ANUG MACKENZIE MD Cbc With Automated Diff (12/02/21 19:36) Magnesium (12/02/21 19:36) Chest 1 View Ap/Pa Only (12/02/21 19:36) Ekg Tracing (12/02/21 19:36) Comprehensive Metabolic Panel (12/02/21:36) Protime With Inr (12/02/21 19:36) Partial Thromboplastin Time (12/02/21:36) O2 (12/02/21:36) Monitor-Rhythm Ecg Trace Only (12/02/21:36) Ed Iv/Invasive Line Start (12/02/21 19:36) Lipase (12/02/21 19:36) Troponin I Fs (12/02/21 19:36) Probnp Fs (12/02/21:36) Covid 19 Inhouse Test (12/02/21 19:36) Influenza A And B By Pcr (12/02/21 19:36) Isolation Central Supply Req (12/02/21 19:36) Albuterol/Ipra Inhalation Soln (Duoneb I (12/02/21 20:07) Svn Small Volume Nebulizer (12/02/21 20:07) Dexamethasone Oral Soln (Ed) (Decadron I (12/02/21 21:36) Potassium Chloride (Tablet) (K Dur Table (12/02/21 21:36) Magnesium Oxide Tablet (Mag Ox Tablet) (12/02/21 21:36) Azithromycin Tablet (Zithromax Tablet) (12/02/21 21:49) Ceftriaxone (Rocephin) (12/02/21 21:49) Lidocaine 1% Inj 20 Ml (Xylocaine 1% Inj (12/02/21 22:00) Fentanyl Inj (Sublimaze Injection) (12/02/21 23:20) Medications Given in ED Current Medications Medications Dose Ordered Sig/Nadege Route Start Time Stop Time Status Last Admin Dose Admin Lidocaine HCl 2.1 ml ONCE ONCE INJ 12/02/21 22:00 12/02/21 22:01 DC 12/02/21 22:06 2.1 ML Vital Signs/I&O 12/02/21 12/02/21 12/02/21 19:25 20:33 22:57 Temp 36.8 Pulse 95 70 Resp 22 19 B/P (MAP) 216/103 (140) 164/78 Pulse Ox 97 92 O2 Delivery Room Air Room Air Room Air Capillary Refill : Progress Note #1: Progress Note Obtain basic labs and COVID swab with influenza. Chest x-ray and electrocardiogram to evaluate her chest tightness, cough, shortness of breath. After multiple peripheral IV attempts patient refused IV in her neck. Will try to obtain labs with a blood draw. When she presented at end of October she was septic and required a central line in right femoral vein. Progress Note #2: Progress Note Labs showed stable CBC without elevated white blood cell count or significant change in her chronic anemia with a hemoglobin of 11. Her chemistry showed hypokalemia with a potassium down to 2.6, hypomagnesemia with a magnesium of 1.2. Lipase and other chemistry panel tests were stable without acute significant abnormality. Cardiac enzymes were negative for acute coronary syndrome or myocardial infarction. Her chest x-ray showed increased infiltrate with effusion in the right lower lobe. This was changed from her previous x-ray while she was admitted at the end of October for pneumonia and sepsis. Her COVID test came back positive. She was negative for influenza. She has been maintaining her oxygen saturation in the 93 to 96% range. She states that she is supposed to be on 2 L of oxygen 24/7. Discussed with Dr. Lees and will admit the patient for COVID and pneumonia as well as electrolyte imbalances. Order a PICC line to be obtained in the morning. I will try looking at the ultrasound for possible IV prior to transfer. In the meantime we will give oral potassium, oral magnesium, oral Zithromax, Rocephin IM, Decadron 6 mg by mouth. Will place in observation status with COVID order set. ECG Initial ECG Impression Date: Dec 02, 2021 Initial ECG Impression Time: 19:28 Initial ECG Rate: 94 Initial ECG Rhythm: Normal Sinus Initial ECG Comparisson: Unchanged (07 Nov 2021) Comment On my independent review and interpretation of her electrocardiogram she has normal sinus rhythm with a heart rate of 94 bpm. She has no ST elevation. There are some baseline wander on the tracing and artifact. LA interval 184 ms. QT interval 358 ms with a QTc interval 410 ms. Overall appears similar to tracing from 07 November 2021 Diagnostic Imaging Diagonstic Imaging: Xray Plain Films/CT/US/NM/MRI: chest Comments [facility] [place], [place] NAME: NORBERT DOMINGUEZ [facility] REC#: [id number] PT STATUS: REG ER : 1945 PHYSICIAN: AUNG MACKENZIE MD ADMIT DATE: 12/02/21/ER FS Signed Date of Exam:12/02/21 CHEST 1 VIEW AP/PA ONLY INDICATION: Shortness of breath. Cough. Chest pain. COMPARISON: November 07, 2021. FINDINGS: There is no dense consolidation present at the right lung base with probable associated effusion. There are chronic pulmonary interstitial changes present within the lungs. The left lung base is clear. Enlargement of the cardiac silhouette is unchanged. The central pulmonary vascularity appears appropriate. Note is made of prior cervical ACDF. IMPRESSION: Background features of underlying interstitial lung disease with new dense consolidation at the right lung base and a right-sided effusion that may reflect a superimposed pneumonia. Dictated by: Dictated on workstation # [id number] Dict: 12/02/212011 Trans: 12/02/212099 PJE [id number] Interpreted by: SATYA COLON MD Electronically signed by: SATYA COLON MD 12/02/212099 Reviewed: Reviewed by Me Departure Communication (Admissions) Time/Spoke to Admitting Phy: 21:[address] Lees and will admit as observation patient for Covid, pneumonia, low potassium, low magnesium, shortness of breath. Will try to obtain peripheral IV access tonight but if unable to do so will continue po meds and order PICC line in am. Impression Primary Impression: COVID-19 virus infection Additional Impressions: Chest tightness Cough Qualified Codes: R05.3 - Chronic cough Shortness of breath RLL pneumonia Qualified Codes: J18.9 - Pneumonia, unspecified organism Hypokalemia Hypomagnesemia Disposition: 30 STILL A PATIENT Condition: Stable Admissions Decision to Admit Reason: Admit from ER (General) Decision to Admit/Date: Dec 02, 2021 Time/Decision to Admit Time: 21:20 Departure-Patient Inst. Referrals: CHAMP MONTES MD (PCP/Family) Primary Care Physician AUNG MACKENZIE MD Dec 02, 2021 19:44
[2021-12-02 19:56] LABS: BASOPHILS # (AUTO) 0.1 10^3/uL (0.0-0.1); BASOPHILS % (AUTO) 1 % (0-10); EOSINOPHILS # (AUTO) 0.1 10^3/uL (0.0-0.3); EOSINOPHILS % (AUTO) 2 % (0-10); HEMATOCRIT 34 % (35-52); LYMPHOCYTES # (AUTO) 2.6 10^3/uL (1.0-4.0); LYMPHOCYTES % (AUTO) 38 % (12-44); MEAN CORPUSCULAR HEMOGLOBIN 26 pg (25-34); MEAN CORPUSCULAR HGB CONC 33 g/dL (32-36); MEAN CORPUSCULAR VOLUME 79 fL (80-99); MEAN PLATELET VOLUME 10.6 fL (9.0-12.2); MONOCYTES # (AUTO) 0.7 10^3/uL (0.0-1.0); MONOCYTES % (AUTO) 9 % (0-12); NEUTROPHILS # (AUTO) 3.3 10^3/uL (1.8-7.8); NEUTROPHILS % (AUTO) 49 % (42-75); PLATELET COUNT 148 10^3/uL (130-400); WHITE BLOOD COUNT 6.9 10^3/uL (4.3-11.0)
[2021-12-02] MEDS ORDERED: RT-ALBUTEROL/IPRATROPIUM 3 ML (DUONEB) VIAL INH STA (20:07)
[2021-12-02 20:09] LABS: PROTHROMBIN TIME PATIENT 15.5 SEC (12.2-14.7)
[2021-12-02 20:10] LABS: INR 1.2 (0.8-1.4)
[2021-12-02 20:22] LABS: BILIRUBIN,TOTAL 0.2 MG/DL (0.1-1.0); CALCIUM 8.5 MG/DL (8.5-10.1); CREATININE SERUM 0.95 MG/DL (0.60-1.30); MAGNESIUM 1.4 MG/DL (1.6-2.4); POTASSIUM 2.6 MMOL/L (3.6-5.0); TOTAL PROTEIN 5.9 GM/DL (6.4-8.2)
--- NOTE | 2021-12-02 20:22 | Diagnostic Imaging Report ---
INDICATION: Shortness of breath. Cough. Chest pain. COMPARISON: November 07, 2021. FINDINGS: There is no dense consolidation present at the right lung base with probable associated effusion. There are chronic pulmonary interstitial changes present within the lungs. The left lung base is clear. Enlargement of the cardiac silhouette is unchanged. The central pulmonary vascularity appears appropriate. Note is made of prior cervical ACDF. IMPRESSION: Background features of underlying interstitial lung disease with new dense consolidation at the right lung base and a right-sided effusion that may reflect a superimposed pneumonia. Dictated by: Dictated on workstation # [id number]
[2021-12-02] MEDS ORDERED: MAGNESIUM OXIDE (MAG-OX)400 MG TAB PO STA (21:36)
[2021-12-02] MEDS ORDERED: KCL 20 MEQ TAB (K-DUR) PO STA (21:36)
[2021-12-02] MEDS ORDERED: AZITHROMYCIN 250 MG TAB (ZITHROMAX) PO STA (21:49)
[2021-12-02] MEDS ORDERED: cefTRIAXone 1,000 MG VIAL IM STA (21:49)
[2021-12-02] MEDS ORDERED: LIDOCAINE 1% INJ 20 ML VIAL INJ ONE (22:00)
[2021-12-02] MEDS ORDERED: fentaNYL INJ 100 MCG/2 ML AMP IM STA (23:20)
[2021-12-03] VITALS (8 sets, daily range): BP systolic 133–216; BP diastolic 65–103
[2021-12-03] MEDS ORDERED: RT-ALBUTEROL HFA 8.5 GM INHALER IH PRN ×2 (01:15→01:30)
[2021-12-03] MEDS ORDERED: guaiFENesin SYRUP 100 MG/5 ML 10 ML (ROBITUSSIN SF) PO PRN (01:15)
[2021-12-03] MEDS ORDERED: ONDANSETRON 4 MG/5 ML ORAL SOLN (ZOFRAN) 5 ML PO PRN (01:15)
[2021-12-03] MEDS ORDERED: RT-ALBUTEROL HFA 8.5 GM INHALER IH SCH (03:00)
[2021-12-03] MEDS: SUMAtriptan 50 MG (IMITREX) TAB PO PRN ×2 (03:22→16:55)
[2021-12-03 05:31] LABS: BASOPHILS # (AUTO) 0.1 10^3/uL (0.0-0.1); BASOPHILS % (AUTO) 1 % (0-10); EOSINOPHILS % (AUTO) 0 % (0-10); HEMATOCRIT 33 % (35-52); HEMOGLOBIN 10.8 g/dL (11.5-16.0); LYMPHOCYTES # (AUTO) 2.1 10^3/uL (1.0-4.0); LYMPHOCYTES % (AUTO) 38 % (12-44); MEAN CORPUSCULAR HEMOGLOBIN 26 pg (25-34); MEAN CORPUSCULAR HGB CONC 33 g/dL (32-36); MEAN CORPUSCULAR VOLUME 79 fL (80-99); MEAN PLATELET VOLUME 10.7 fL (9.0-12.2); MONOCYTES # (AUTO) 0.1 10^3/uL (0.0-1.0); MONOCYTES % (AUTO) 1 % (0-12); NEUTROPHILS # (AUTO) 3.2 10^3/uL (1.8-7.8); NEUTROPHILS % (AUTO) 58 % (42-75); PLATELET COUNT 137 10^3/uL (130-400); WHITE BLOOD COUNT 5.6 10^3/uL (4.3-11.0)
[2021-12-03 05:43] LABS: ALBUMIN 2.9 GM/DL (3.2-4.5)
[2021-12-03 05:44] LABS: POTASSIUM 3.3 MMOL/L (3.6-5.0)
[2021-12-03 05:45] LABS: CALCIUM 8.2 MG/DL (8.5-10.1)
[2021-12-03 05:46] LABS: TOTAL PROTEIN 5.9 GM/DL (6.4-8.2)
[2021-12-03 05:48] LABS: BILIRUBIN,TOTAL 0.2 MG/DL (0.1-1.0)
[2021-12-03 05:49] LABS: CREATININE SERUM 0.87 MG/DL (0.60-1.30)
[2021-12-03] MEDS: ACETAMINOPHEN 325 MG TABLET PO PRN ×3 (06:24→19:47)
[2021-12-03] MEDS ORDERED: UMECLIDINIUM BROMIDE (INCRUSE ELLIPTA) 7'S IH SCH (08:00)
[2021-12-03] MEDS: dexAMETHasone 6 MG TAB (DECADRON) PO SCH (08:52)
[2021-12-03] MEDS: ENOXAPARIN 40 MG/0.4 ML (LOVENOX) SYR SC SCH (08:52)
--- NOTE | 2021-12-03 09:18 | Physical Therapy Evaluation ---
PT Evaluation-General Medical Diagnosis Admission Date Dec 03, 2021 at 00:12 Medical Diagnosis: covid Onset Date: Dec 03, 2021 Therapy Diagnosis Therapy Diagnosis: independent with ambulation, impaired strength Height/Weight Height (Feet): 5 Height (Inches): 7.00 Weight (Pounds): 152 Weight (Ounces): 7.0 Precautions Precautions/Isolations: Contact Isolation, Droplet Isolation, Fall Prevention Referral Physician: Olga Lidia Reason for Referral: Evaluation/Treatment Medical History Pertinent Medical History: CAD, COPD, CVA, GERD, Heart Failure, HTN, Renal Insufficiency Additional Medical History Past Medical History Surgery/Hospitalization HX: COPD, Pneumonia, Hysterectomy, Hypertension, Hypercholesterolemia, Migraine headaches, Renal failure, Pancreatitis, anxiety Surgeries: Yes (knee arthroscopy, removal superficial implant, shoulder fx tx, ankle fx tx,) Hysterectomy, Joint Replacement, Orthopedic Respiratory: Yes (Chronic airway obstruction) Pneumonia, COPD Cardiac: Yes (CAD, chest pain, unspecified essential hypertension, chest wall pain) High Cholesterol, Hypertension Neurological: Yes Headaches /Migraines, TIA Reproductive Disorders: No Genitourinary: Yes (Urinary tract infection) Renal Failure Pancreatitis Musculoskeletal: Yes (herniated intervetebral disk, chronic knee pain, chronic neck pain, back pa) Osteoporosis, Fibromyalgia Endocrine: Yes (hypokalemia, hypomagnesemia) HEENT: No Cataract, Eye Injury Cancer: Yes Psychosocial: Yes (chronic narcotic dependence, drug-seeking behavior, excessive somnolence di) Anxiety Integumentary: No Blood Disorders: Yes (anemia) Reviewed History: Yes Social History Current Living Status: Other Family (sister) Entry Into Home: [place] Prior Prior Level of Function SCALE: Activities may be completed with or without assistive devices. 9-Qmozrkjpiq-ncflolu completes the activity by him/herself with no assistance from a helper. 5-Set-up or Clean-up Assistance-helper sets up or cleans up; patient completes activity. [place] assists only prior to or following the activity. 4-Supervision or Touching Assistance-helper provides verbal cues and/or touching/steadying and/or contact guard assistance as patient completes activity. Assistance may be provided throughout the activity or intermittently. 3-Partial/Moderate Assistance-helper does LESS THAN HALF the effort. [place] lifts, holds or supports trunk or limbs, but provides less than half the effort. 2-Substantial/Maximal Assistance-helper does MORE THAN HALF the effort. [place] lifts or holds trunk or limbs and provides more than half the effort. 4-Eclvrjxno-bsrebn does ALL the effort. Patient does none of the effort to co mplete the activity. Or, the assistance of 2 or more helpers is required for the patient to complete the activity. If activity was not attempted, code reason: 7-Patient Refused. 9-Not Applicable-not attempted and the patient did not perform the activity before the current illness, exacerbation or injury. 10-Not Attempted due to Environmental Limitations-(lack of equipment, weather restraints, etc.). 88-Not Attempted due to Medical Conditions or Safety Concerns. Bed Mobility: 6 Transfers (B,C,W/C): 6 Gait: 6 Indoor Mobility (Ambulation): Independent Prior Devices Use: None PT Evaluation-Current Subjective Patient in bed pre tx, agrees to PT, has 8/10 pain in left shoulder and 6/10 pain in right low back. Pt/Family Goals to be independent at home Objective Patient Orientation: Person, Place, Situation ROM/Strength ROM Lower Extremities WNL Strength Lower Extremities LLE grossly 5/5, RLE grossly 4/5 Sensory Hearing: Functional Sensation Right Lower Extremit: Impaired Sensation Left Lower Extremity: Impaired Sensation Lower Extremities impaired light touch sensation in both feet. Transfers Roll Left to Right (QC): 6 Sit to Lying (QC): 6 Lying to Sitting/Side of Bed(Q: 6 Sit to Stand (QC): 6 Gait Mode of Locomotion: Walk Anticipated Mode of Locomotion: Walk Walk 10 feet (QC): 6 Walk 50 ft with 2 Turns(QC): 6 Distance: 60' Gait Assistive Device: None Comments/Gait Description Patient ambulated about her room without an assistive device with independence, no LOB or even slight unsteadiness Balance Sitting Static: Normal Sitting Dynamic: Normal Standing Static: Normal Standing Dynamic: Normal Treatment education on LE exercises to do on her own (AP, HS) Assessment/Needs Patient in bed post tx with nurse call, phone, tray, all needs met. Patient has slightly impaired strength but is independent with mobility. Advised patient to ambulate in her room several times a day. Will DC from PT services at this time. Rehab Potential: Good PT Plan Problem List Problem List: Functional Strength Treatment/Plan Treatment Plan: Discontinue PT Treatment Duration: Dec 03, 2021 Frequency: Safety Risks/Education Patient Education: Gait Training, Transfer Techniques, Correct Positioning, Safety Issues Teaching Recipient: Patient Teaching Methods: Demonstration, Discussion Response to Teaching: Verbalize Understanding, Return Demonstration Discharge Recommendations Plan DC Time/GCodes Time In: 854 Time Out: 905 Total Billed Treatment Time: 11 Total Billed Treatment 1 visit DIONNE Simmons' UGO NEWTON PT Dec 03, 2021 09:18
[2021-12-03] MEDS ORDERED: CATHETER FLUSH 10 ML SYR IV PRN (11:00)
[2021-12-03] MEDS ORDERED: NS 100 ML (IVPB) BAG IV ONE (11:00)
[2021-12-03] MEDS ORDERED: IOHEXOL 350 MG/ML 100 ML (OMNIPAQUE 350) VIAL IV ONE (11:00)
[2021-12-03] MEDS ORDERED: HOLD METFORMIN - RECEIVED CONTRAST 20 ML VIAL IV SCH (11:00)
[2021-12-03] MEDS: UMECLIDINIUM BROMIDE (INCRUSE ELLIPTA) 7'S IH SCH (11:13)
[2021-12-03] MEDS: RT-ALBUTEROL HFA 8.5 GM INHALER IH SCH ×4 (11:13→20:47)
--- NOTE | 2021-12-03 11:51 | Occupational Therapy Eval ---
OT Evaluation-General/PLF Medical Diagnosis Admission Date Dec 03, 2021 at 00:12 Medical Diagnosis: covid Onset Date: Dec 03, 2021 Therapy Diagnosis Therapy Diagnosis: n/a Height/Weight Height (Feet): 5 Height (Inches): 7.00 Weight (Pounds): 152 Weight (Ounces): 7.0 Precautions Precautions/Isolations: Contact Isolation, Droplet Isolation, Fall Prevention Referral Physician: Olga Lidia Referral Reason: Evaluation/Treatment Medical History Pertinent Medical History: CAD, COPD, CVA, GERD, Heart Failure, HTN, Renal Insufficiency Additional Medical History COPD, HTN, renal failure, migrains, anxiety, shoulder fx, ankle fx, CAD, TIA, fibromyalgia, herniated intervertebral disk, osteoporosis Current History ED c/o chest pressure and SOB Social History Current Living Status: Other Family (sister) Entry Into Home: [facility] ADL-Prior Level of Function SCALE: Activities may be completed with or without assistive devices. 7-Kqkaojrajt-efgqylx completes the activity by him/herself with no assistance from a helper. 5-Set-up or Clean-up Assistance-helper sets up or cleans up; patient completes activity. [place] assists only prior to or following the activity. 4-Supervision or Touching Assistance-helper provides verbal cues and/or touching/steadying and/or contact guard assistance as patient completes activity. Assistance may be provided throughout the activity or intermittently. 3-Partial/Moderate Assistance-helper does LESS THAN HALF the effort. [place] lifts, holds or supports trunk or limbs, but provides less than half the effort. 2-Substantial/Maximal Assistance-helper does MORE THAN HALF the effort. [place] lifts or holds trunk or limbs and provides more than half the effort. 6-Gjjbwxonc-umaglg does ALL the effort. Patient does none of the effort to complete the activity. Or, the assistance of 2 or more helpers is required for the patient to complete the activity. If activity was not attempted, code reason: 7-Patient Refused. 9-Not Applicable-not attempted and the patient did not perform the activity before the current illness, exacerbation or injury. 10-Not Attempted due to Environmental Limitations-(lack of equipment, weather restraints, etc.). 88-Not Attempted due to Medical Conditions or Safety Concerns. ADL PLOF Comments Pt reports IND with ADLs and functional mobility at [facility]. She lives with her sister who is ~20 years younger than the pt and has experience as a ADULT PROBATION OFFICER Self Care: Independent Functional Cognition: Independent OT Current Status Subjective Pt in bed, agreeable to OT evaluation. Pt feels like she is at her PLOF with ADLs. If she does require any assistance at home, her sister is able to provide assistance. Mental Status/Objective Patient Orientation: Person, Place, Time, Situation Current Upper Extremity ROM decreased LUE (pt reports this is due to prior injury. RUE WFL Upper Extremity Coordination WFL RUE, slightly decreased L due to ROM limitations. ADL-Treatment Eating (QC): 6 (Per pt report.) On/Off Footwear (QC): 6 Toileting Hygiene (QC): 6 (Per pt report.) Other Treatments Pt in bed, agreeable to OT Tx. Pt provided information about PLOF and home set up. Pt reports she has been up in her room, toileting herself without diffi culty. Pt has no concerns with her ability to complete self care tasks upon returning home. Pt able to doff/don socks independently. Per PT report, pt independent with functional mobility/transfers, no AD. Post tx, pt in bed, call light in reach and all needs met. Education OT Patient Education: Correct positioning, Energy conservation, Modified ADL techniques, Progress toward Goal/Update tx plan, Purpose of tx/functional activities, Rehab process Teaching Recipient: Patient Teaching Methods: Discussion Response to Teaching: Verbalize Understanding OT Fci Goals Fci Goals 1=Demonstrate adherence to instructed precautions during ADL tasks. 2=Patient will verbalize/demonstrate understanding of assistive devices/modifications for ADL. 3=Patient will improve strength/tolerance for activity to enable patient to perform ADL's. OT Education/Plan Problem List/Assessment Assessment: No Skilled OT Needs ID'd No skilled OT services indicated at this time, as pt is at her PLOF and independent with ADLS and functional mobility. D/C from OT services at this time. Discharge Recommendations Plan/Recommendations: Discharge/Goals Met Treatment Plan/Plan of Care Patient would benefit from OT for education, treatment and training to promote independence in ADL's, mobility, safety and/or upper extremity function for ADL's. Plan of Care: ADL Retraining Treatment Duration: Dec 03, 2021 Frequency: 1 time per week (eval only) Rehab Potential: Good Time/GCodes Start Time: 11:16 Stop Time: 11:25 Total Time Billed (hr/min): 9 Billed Treatment Time 1, SRAVANTHI FINN OT Dec 03, 2021 11:51
--- NOTE | 2021-12-03 15:52 | Diagnostic Imaging Report ---
PROCEDURE: CT angiography of the chest with contrast. TECHNIQUE: Multiple contiguous axial images were obtained through the chest after uneventful bolus administration of intravenous contrast. 3D reconstructed CTA MIP acquisitions were also performed. Auto Exposure Controls were utilized during the CT exam to meet ALARA standards for radiation dose reduction. INDICATION: Hypoxia and pleuritic chest pain. No prior studies are available for comparison. FINDINGS: Evaluation of the pulmonary arterial system is without evidence of thromboembolism. No filling defects are seen within central, lobar, or segmental branches. The thoracic aorta has normal caliber. There is no dissection. No pericardial fluid is seen. There is a small to moderate-sized right pleural effusion. There is a large hiatal hernia present. There are some patchy airspace infiltrates in the right upper lobe. There is dense consolidation with air bronchograms involving the right lower lobe consistent with pneumonia. There are minimal patchy airspace densities in the left upper and left lower lobes are noted. The upper abdomen is unremarkable. IMPRESSION: 1. No evidence of pulmonary embolism or acute aortic disease. 2. Moderate-sized right pleural effusion. There are bilateral pulmonary infiltrates present, most consolidated in the right lower lobe. 3. Large hiatal hernia. Dictated by: Dictated on workstation # [id number]
--- NOTE | 2021-12-03 15:55 | History & Physical-Hospitalist ---
History of Present Illness HPI/Chief Complaint Cesar Cartwright is a 76 year old female who presented with pleuritic chest pain. She was admitted with pneumonia almost a month ago. She has had a cough with sputum production since that time. She reports chest pain with deep breaths. She denies fevers and chills. She denies shortness of breath. She denies nausea and vomiti ng. She denies abdominal pain. Source: patient Exam Limitations: no limitations Date Seen 12/03/21 Time Seen by a Provider: 10:45 Attending Physician Edis Richard MD PCP Admitting Physician: Brielle Lees MD Attending Physician: Babatunde Machuca MD Referring Physician Date of Admission Dec 03, 2021 at 00:12 Home Medications & Allergies Home Medications Reviewed patient Home Medication Reconciliation performed by pharmacy medication reconciliations telecommunications technician and/or nursing. Patients Allergies have been reviewed. Allergies Allergies Coded Allergies amylase (Unverified Allergy, Mild, 05/04/10) aspirin (Unverified Allergy, Mild, 08/09/08) flurbiprofen (Unverified Allergy, Mild, 07/23/08) lipase (Unverified Allergy, Mild, 05/04/10) protease (Unverified Allergy, Mild, 05/04/10) NSAIDS (Non-Steroidal Anti-Inflamma (Verified Allergy, Unknown, 10/02/06) Penicillins (Verified Allergy, Unknown, 10/02/06) Sulfa (Sulfonamide Antibiotics) (Verified Allergy, Unknown, 10/02/06) chlorhexidine (Verified Allergy, Unknown, RASH/SORES, 07/23/18) rofecoxib (Verified Allergy, Unknown, 10/02/06) tramadol (Verified Allergy, Unknown, PT CAN TAKE MORPHINE WITHOUT PROBLEM, 10/02/06) trazodone (Verified Allergy, Unknown, 10/02/06) alprazolam (Unverified Adverse Reaction, Unknown, 10/02/13) STATES MAKES HER "LOOPY" diazepam (Unverified Adverse Reaction, Unknown, 10/02/13) STATES IT MAKES HER "LOOPY" Past Ivyhmys-Hfcdgu-Hbkfcn Hx Patient Social History Tobacco Use?: No Smoking Status: Never a Smoker Smokeless Tobacco Frequency: Never a User Use of E-Cig and/or Vaping dev: No Substance use?: No Alcohol Use?: No Pt feels they are or have been: No Immunizations Up To Date Tetanus Booster (TDap): Unknown Hepatitis A: No Hepatitis B: No Seasonal Allergies Seasonal Allergies: No Current Status status: No status: No Advance Directives: No Communicates: Verbally Primary Language: Mauritanian Preferred Spoken Language: Mauritanian Is interpretation needed?: No Sensory deficits: Vision impairment Implanted or Applied Medical D: None Past Medical History Surgeries: Hysterectomy, Joint Replacement, Orthopedic Pneumonia, COPD High Cholesterol, Hypertension Headaches /Migraines, TIA Renal Failure Pancreatitis Osteoporosis, Fibromyalgia Cataract, Eye Injury Anxiety Blood Disorders: Yes (anemia) Family Medical History Respiratory disorder 19 MOTHER No Pertinent Family Hx Review of Systems Constitutional: no symptoms reported EENTM: no symptoms reported Respiratory: cough Cardiovascular: chest pain Gastrointestinal: no symptoms reported Physical Exam Physical Exam Vital Signs Vital Signs - First Documented 12/02/21 12/03/21 12/03/21 19:25 00:25 01:11 Temp 36.8 Pulse 95 Resp 22 B/P (MAP) 216/103 (140) Pulse Ox 97 O2 Delivery Room Air O2 Flow Rate 2.00 FiO2 21 Capillary Refill : Less Than 3 Seconds Height, Weight, BMI Height: 5'7.00" Weight: 152lbs. 7.0oz. 68.627987dl; 23.19 BMI Method:Stated General Appearance: No Apparent Distress, WD/WN HEENT: PERRL/EOMI, Pharynx Normal Respiratory: No Respiratory Distress, Decreased Breath Sounds Cardiovascular: Regular Rate, Rhythm, No Murmur Gastrointestinal: Normal Bowel Sounds, Soft Extremity: Normal Inspection, No Pedal Edema Neurologic/Psychiatric: Alert, Normal Mood/Affect Skin: Normal Color, Warm/Dry Results Results/Procedures Labs Laboratory Tests 12/02/21 19:50 12/03/21 05:22 Patient resulted labs reviewed. Imaging: Reviewed Imaging Films, Reviewed Imaging Report Assessment/Plan Admission Diagnosis Multifocal pneumonia Admission Status: Inpatient Order (span 2 midnights) Reason for Inpatient Admission: Multifocal pneumonia COVID-19 Pleural effusion Assessment and Plan Multifocal pneumonia Pleural effusion COVID-19 Acute respiratory failure with hypoxia Not septic CT negative for PE, showed multifocal pneumonia and moderate right pleural effusion IV antibiotics Decadron MAT protocol Supplemental oxygen as needed Hypokalemia Hypomagnesemia Monitor and correct as needed DVT prophylaxis: Lovenox Diagnosis/Problems Diagnosis/Problems (1) Multifocal pneumonia Status: Acute (2) Pleural effusion on right Status: Acute (3) COVID-19 Status: Acute (4) Acute respiratory failure with hypoxia Status: Acute (5) Hypokalemia Status: Acute (6) Hypomagnesemia Status: Acute BABATUNDE MACHUCA MD Dec 03, 2021 15:55
[2021-12-03] MEDS: hydrALAZINE (APESOLINE) 20 MG/ML VIAL IV PRN (18:01)
[2021-12-03] MEDS: GABAPENTIN 600 MG (NEURONTIN) TAB PO SCH (19:41)
[2021-12-03] MEDS ORDERED: AZITHROMYCIN 250 MG TAB (ZITHROMAX) PO SCH ×2 (21:00)
[2021-12-03] MEDS ORDERED: cefTRIAXone 1 GM/50 ML (PRE-MIX) IV SCH (21:00)
[2021-12-03] MEDS ORDERED: cefTRIAXone 1 GM PRE-MIX 50 ML IV SCH (21:00)
[2021-12-04 00:30] VITALS: BP 170/101
[2021-12-04 04:49] VITALS: BP 167/92
[2021-12-04 06:23] LABS: CALCIUM 8.3 MG/DL (8.5-10.1); CREATININE SERUM 0.76 MG/DL (0.60-1.30); MAGNESIUM 1.4 MG/DL (1.6-2.4); POTASSIUM 3.2 MMOL/L (3.6-5.0)
[2021-12-04] MEDS: RT-ALBUTEROL HFA 8.5 GM INHALER IH SCH ×2 (07:31→11:13)
[2021-12-04] MEDS: UMECLIDINIUM BROMIDE (INCRUSE ELLIPTA) 7'S IH SCH (07:32)
[2021-12-04] MEDS: ENOXAPARIN 40 MG/0.4 ML (LOVENOX) SYR SC SCH (07:51)
[2021-12-04] MEDS: dexAMETHasone 6 MG TAB (DECADRON) PO SCH (07:51)
[2021-12-04] MEDS: GABAPENTIN 600 MG (NEURONTIN) TAB PO SCH (07:52)
[2021-12-04 07:55] VITALS: BP 180/93
[2021-12-04] MEDS: hydrALAZINE (APESOLINE) 20 MG/ML VIAL IV PRN (08:04)
[2021-12-04] MEDS ORDERED: CLOPIDOGREL 75 MG (PLAVIX) TABLET PO SCH (09:00)
[2021-12-04] MEDS ORDERED: PROM25TA14 PO (10:38)
[2021-12-04] MEDS ORDERED: PRED10TA22 PO (10:43)
[2021-12-04] MEDS ORDERED: CEFD300C3 PO (10:43)
[2021-12-04] MEDS ORDERED: lisINopril 40 MG (PRINIVIL) TABLET PO NR (11:00)
[2021-12-04 11:01] VITALS: BP 163/93
[2021-12-04 13:05] VITALS: BP 163/93
--- NOTE | 2021-12-04 19:08 | Discharge Summary ---
Discharge Summary Hospital Course Problems/Dx: (1) Multifocal pneumonia Status: Acute (2) Pleural effusion on right Status: Acute (3) COVID-19 Status: Acute (4) Acute respiratory failure with hypoxia Status: Acute (5) Hypokalemia Status: Acute (6) Hypomagnesemia Status: Acute Hospital Course Date of Admission: Dec 03, 2021 at 16:29 Admission Diagnosis : Acute on chronic respiratory failure due to COVID-19 and pneumonia Family Physician/Provider: Edis Richard MD Date of Discharge: 12/04/21 Discharge Diagnosis: Acute on chronic respiratory failure due to COVID-19 and pneumonia Hospital Course: Cesar Cartwright is a 76 year old female who was admitted with acute on chronic respiratory failure with hypoxia due to COVID-19 and bacterial pneumonia. She was treated with antibiotics and steroids. Her symptoms improved. Her oxygen requirement returned to baseline. She was given a prescription for Omnicef and a prednisone taper. She was discharged home in stable condition. She should follow up with her PCP in a couple weeks. Labs and Pending Lab Test: Laboratory Tests 12/04/21 05:35: Sodium Level 138, Potassium Level 3.2L, Chloride Level 106, Carbon Dioxide Level 22, Anion Gap 10, Blood Urea Nitrogen 18, Creatinine 0.76, Estimat Glomerular Filtration Rate 81, BUN/Creatinine Ratio 24, Glucose Level 98, Calcium Level 8.3L, Magnesium Level 1.4L Home Meds Active Prednisone 10 Mg Tab.ds.pk 10 Mg PO DAILY Take 6 tabs(60mg)daily,decrease by 1 tab(10MG)daily. Cefdinir 300 Mg Capsule 300 Mg PO BID 5 Days Reported Promethazine Tablet (Promethazine HCl) 25 Mg Tablet 25 Mg PO Q6H PRN Vitamin D2 (Ergocalciferol (Vitamin D2)) 1,250 Mcg (18074 Unit) Capsule 1,250 Mcg PO MON Famotidine 20 Mg Tablet 20 Mg PO BID PRN Lisinopril 40 Mg Tablet 20 Mg PO BID TAKES OF A 40MG TAB Gabapentin 600 Mg Tablet 600 Mg PO TID Combivent Respimat Inhal [place] (Albuterol/Ipratropium) 4 Gm Aero 2 Puff INH QID PRN Diphenoxylate-Atrop 2.5-0.025 (Diphenoxylate HCl/Atropine) 2.5 Mg-0.025 Mg Tablet 1 Tab PO QID PRN Lansoprazole 30 Mg Capsule.dr 30 Mg PO DAILY Hydroxyzine HCl 25 Mg Tablet 25 Mg PO QID PRN Amitriptyline HCl 50 Mg Tablet 50 Mg PO HS Clopidogrel (Clopidogrel Bisulfate) 75 Mg Tablet 75 Mg PO DAILY Sumatriptan Succinate 100 Mg Tablet 100 Mg PO UD PRN Assessment/Pt Instructions See instructions Discharge Planning: <30 minutes discharge planning Discharge Instructions Discharge Diet: No Restrictions Activity as Tolerated: Yes Discharge Physical Examination Vital Signs Vital Signs Date Time Temp Pulse Resp B/P (MAP) Pulse Ox O2 Delivery O2 Flow Rate FiO2 12/04/21 13:05 36.5 100 18 163/93 93 Nasal Cannula 2.00 12/03/21 01:11 21 General Appearance: No Apparent Distress, Chronically ill Respiratory: No Respiratory Distress, Decreased Breath Sounds Cardiovascular: Regular Rate, Rhythm, No Murmur Gastrointestinal: Normal Bowel Sounds, Soft Extremity: Normal Inspection, No Pedal Edema Skin: Normal Color, Warm/Dry Neurologic/Psychiatric: Alert, Normal Mood/Affect Allergies: Coded Allergies: amylase (Unverified Allergy, Mild, 05/04/10) aspirin (Unverified Allergy, Mild, 08/09/08) flurbiprofen (Unverified Allergy, Mild, 07/23/08) lipase (Unverified Allergy, Mild, 05/04/10) protease (Unverified Allergy, Mild, 05/04/10) NSAIDS (Non-Steroidal Anti-Inflamma (Verified Allergy, Unknown, 10/02/06) Penicillins (Verified Allergy, Unknown, 10/02/06) Sulfa (Sulfonamide Antibiotics) (Verified Allergy, Unknown, 10/02/06) chlorhexidine (Verified Allergy, Unknown, RASH/SORES, 07/23/18) rofecoxib (Verified Allergy, Unknown, 10/02/06) tramadol (Verified Allergy, Unknown, PT CAN TAKE MORPHINE WITHOUT PROBLEM, 10/02/06) trazodone (Verified Allergy, Unknown, 10/02/06) alprazolam (Unverified Adverse Reaction, Unknown, 10/02/13) STATES MAKES HER "LOOPY" diazepam (Unverified Adverse Reaction, Unknown, 10/02/13) STATES IT MAKES HER "LOOPY" Discharge Summary Date of Admission Dec 03, 2021 at 16:29 Date of Discharge Dec 04, 2021 at 13:05 Discharge Date: Dec 04, 2021 Discharge Time: 13:05 Admission Diagnosis Multifocal pneumonia Discharge Diagnosis Multifocal pneumonia Pleural effusion COVID-19 Acute on chronic respiratory failure with hypoxia (1) Multifocal pneumonia Status: Acute (2) Pleural effusion on right Status: Acute (3) COVID-19 Status: Acute (4) Acute respiratory failure with hypoxia Status: Acute (5) Hypokalemia Status: Acute (6) Hypomagnesemia Status: Acute BABATUNDE MACHUCA MD Dec 04, 2021 19:08
[2021-12-05] MEDS ORDERED: lisINopril 40 MG (PRINIVIL) TABLET PO SCH (09:00)
== END 2021-12-04 13:05 | disposition home or self-care (01) | DRG 177 ==
LOC: EDUNIT# 19:24 → ER FS 19:27 → 4TH 12-03 00:12 → OBSVTOIN 12-03 16:29
PROVIDERS: ADMIT Family Medicine; ATTEND Internal Medicine
DX: U07.1 COVID-19 (principal); J15.9 Unspecified bacterial pneumonia; J96.21 Acute and chronic respiratory failure with hypoxia; J44.0 Chronic obstructive pulmonary disease with (acute) lower respiratory infection; I10 Essential (primary) hypertension; E78.00 Pure hypercholesterolemia, unspecified; I25.10 Atherosclerotic heart disease of native coronary artery without angina pectoris; D64.9 Anemia, unspecified; Z66 Do not resuscitate; E87.6 Hypokalemia; E83.42 Hypomagnesemia; H54.7 Unspecified visual loss; Z88.6 Allergy status to analgesic agent; Z88.0 Allergy status to penicillin; Z88.2 Allergy status to sulfonamides
CPT/HCPCS: 36410; 36415; 71045; 71275; 76937; 80048; 80053; 83690; 83735; 83880; 84145; 84484; 85025; 85610; 85730; 87636; 93005; 93041; 94640; 94664; 94760

== ENCOUNTER 2021-12-25 14:06 | Emergency (ER) | payer MEDICAID ==
[~2021-12-25] VITALS: Ht 170.2 cm; Wt 64.4 kg
[~2021-12-25 14:06] MED LIST changes: +CEFD300C3 PO; +PRED10TA22 PO
[2021-12-25] MEDS ORDERED: fentaNYL INJ 100 MCG/2 ML AMP IM STA (14:17)
--- NOTE | 2021-12-25 14:24 | ED Upper Extremity ---
General Chief Complaint: Upper Extremity Stated Complaint: LT SHOULDER PAIN Source: patient History of Present Illness Date Seen by Provider: Dec 25, 2021 Time Seen by Provider: 14:09 Initial Comments 76-year-old female presenting with complaints of increased shoulder pain on the left shoulder. She states that it has been hurting since August when she had s urgery at [facility]. She had increased pain since being in the hospital for COVID recently and they have moved her arm in various positions to try and get blood pressure and IV access. She denies any direct fall or trauma to the shoulder other than the increased movement while she was in the hospital. She reports that her primary care provider referred her back to the surgeon and the surgeon has an appointment to see her on Friday, December 31. She presents to the ED requesting pain management since her primary care provider refused and she has to wait till Friday to see her Surgeon. Severity: severe Pain/Injury Location: left shoulder Modifying Factors: Worse With Movement Allergies and Home Medications Allergies Coded Allergies: amylase (Unverified Allergy, Mild, 05/04/10) aspirin (Unverified Allergy, Mild, 08/09/08) flurbiprofen (Unverified Allergy, Mild, 07/23/08) lipase (Unverified Allergy, Mild, 05/04/10) protease (Unverified Allergy, Mild, 05/04/10) NSAIDS (Non-Steroidal Anti-Inflamma (Verified Allergy, Unknown, 10/02/06) Penicillins (Verified Allergy, Unknown, 10/02/06) Sulfa (Sulfonamide Antibiotics) (Verified Allergy, Unknown, 10/02/06) chlorhexidine (Verified Allergy, Unknown, RASH/SORES, 07/23/18) rofecoxib (Verified Allergy, Unknown, 10/02/06) tramadol (Verified Allergy, Unknown, PT CAN TAKE MORPHINE WITHOUT PROBLEM, 10/02/06) trazodone (Verified Allergy, Unknown, 10/02/06) alprazolam (Unverified Adverse Reaction, Unknown, 10/02/13) STATES MAKES HER "LOOPY" diazepam (Unverified Adverse Reaction, Unknown, 10/02/13) STATES IT MAKES HER "LOOPY" Patient Home Medication List Home Medication List Reviewed: Yes Albuterol/Ipratropium (Combivent Respimat Inhal Hooper) 4 Gm Aero, 2 PUFF INH QID PRN for SHORTNESS OF BREATH, (Reported) Entered as Reported by: LATISHA LOMELI on 07/23/18932 Amitriptyline HCl (Amitriptyline HCl) 50 Mg Tablet, 50 MG PO HS, (Reported) Entered as Reported by: LATISHA LOMELI on 07/23/18932 Cefdinir (Cefdinir) 300 Mg Capsule, 300 MG PO BID Prescribed by: BABATUNDE MACHUCA on 12/04/21 1043 Clopidogrel Bisulfate (Clopidogrel) 75 Mg Tablet, 75 MG PO DAILY, (Reported) Entered as Reported by: LATISHA LOMELI on 07/23/18932 Diphenoxylate HCl/Atropine (Diphenoxylate-Atrop 2.5-0.025) 2.5 Mg-0.025 Mg Tablet, 1 TAB PO QID PRN for DIARRHEA, (Reported) Entered as Reported by: LATISHA LOMELI on 07/23/18932 Ergocalciferol (Vitamin D2) (Vitamin D2) 1,250 Mcg (36740 Unit) Capsule, 1,250 MCG PO MON, (Reported) Entered as Reported by: GM JACKSON on 11/07/21 124 Famotidine (Famotidine) 20 Mg Tablet, 20 MG PO BID PRN for HEARTBURN, (Reported) Entered as Reported by: GM JACKSON on 11/07/21 124 Gabapentin (Gabapentin) 600 Mg Tablet, 600 MG PO TID, (Reported) Entered as Reported by: GM JACKSON on 11/07/21 124 Hydroxyzine HCl (Hydroxyzine HCl) 25 Mg Tablet, 25 MG PO QID PRN for ITCHING/ANXIETY, (Reported) Entered as Reported by: LATISHA LOMELI on 07/23/18932 Lansoprazole (Lansoprazole) 30 Mg Capsule.dr, 30 MG PO DAILY, (Reported) Entered as Reported by: LATISHA LOMELI on 07/23/18932 Lisinopril (Lisinopril) 40 Mg Tablet, 20 MG PO BID, (Reported) Entered as Reported by: GM JACKSON on 11/07/21 124 Oxycodone HCl (Oxycodone HCl) 5 Mg Tablet, 5 MG PO Q6H PRN for PAIN-SEVERE (8- 10) Prescribed by: AUNG MACKENZIE on 12/25/21 1431 Prednisone (Prednisone) 10 Mg Tab.ds.pk, 10 MG PO DAILY Prescribed by: BABATUNDE MACHUCA on 12/04/21 1043 Promethazine HCl (Promethazine Tablet) 25 Mg Tablet, 25 MG PO Q6H PRN for NAUSEA/VOMITING-2ND LINE, (Reported) Entered as Reported by: GM JACKSON on 12/04/21 1038 Sumatriptan Succinate (Sumatriptan Succinate) 100 Mg Tablet, 100 MG PO UD PRN for MIGRAINE, (Reported) Entered as Reported by: LATISHA LOMELI on 07/23/18 0933 Review of Systems Constitutional: No chills, No fever EENTM: no symptoms reported Respiratory: short of breath (chronic shortness of breath since recent Covid infection) Cardiovascular: no symptoms reported Gastrointestinal: no symptoms reported Genitourinary: no symptoms reported Musculoskeletal: see HPI Skin: No change in color Psychiatric/Neurological: Denies Numbness, Denies Paresthesia Past Kcvcvjc-Htqjkf-Qltwbp Hx Seasonal Allergies Seasonal Allergies: No Past Medical History Surgery/Hospitalization HX: COPD, Pneumonia, Hysterectomy, Hypertension, Hypercholesterolemia, Migraine headaches, Renal failure, Pancreatitis, anxiety Surgeries: Yes (knee arthroscopy, removal superficial implant, shoulder fx tx, ankle fx tx,) Hysterectomy, Joint Replacement, Orthopedic Respiratory: Yes (Chronic airway obstruction) Pneumonia, COPD Cardiac: Yes (CAD, chest pain, unspecified essential hypertension, chest wall pain) High Cholesterol, Hypertension Neurological: Yes Headaches /Migraines, TIA Reproductive Disorders: No Genitourinary: Yes (Urinary tract infection) Renal Failure Pancreatitis Musculoskeletal: Yes (herniated intervetebral disk, chronic knee pain, chronic neck pain, back pa) Osteoporosis, Fibromyalgia Endocrine: Yes (hypokalemia, hypomagnesemia) HEENT: No Cataract, Eye Injury Cancer: Yes Psychosocial: Yes (chronic narcotic dependence, drug-seeking behavior, excessive somnolence di) Anxiety Integumentary: No Blood Disorders: Yes (anemia) Family Medical History Respiratory disorder 19 MOTHER No Pertinent Family Hx Physical Exam Vital Signs Vital Signs - First Documented 12/25/21 14:15 Temp 36.6 Pulse 113 Resp 22 B/P (MAP) 149/107 (121) Pulse Ox 94 O2 Delivery Nasal Cannula O2 Flow Rate 4.00 Capillary Refill : Height, Weight, BMI Height: 5'7.00" Weight: 152lbs. 7.0oz. 68.436283gr; 23.19 BMI Method:Stated General Appearance: no apparent distress, other (chronically ill appearing) Cardiovascular: normal peripheral pulses Shoulder: No deformity; limited ROM (due to pain), pain (anterior left shoulder pain) Neurologic/Tendon: normal sensation, normal motor functions Neurologic/Psychiatric: alert, oriented x 3 Skin: normal color, warm/dry Progress/Results/Core Measures Results/Orders My Orders Orders - AUNG MACKENZIE MD Shoulder 3 View Left (12/25/21 14:17) Fentanyl Inj (Sublimaze Injection) (12/25/21 14:17) Vital Signs/I&O 12/25/21 12/25/21 14:15 14:40 Temp 36.6 36.6 Pulse 113 113 Resp 22 B/P (MAP) 149/107 (121) 149/107 Pulse Ox 94 94 O2 Delivery Nasal Cannula Nasal Cannula O2 Flow Rate 4.00 4.00 4.00 Progress Progress Note #1: Progress Note Counseled that ultimately her pain control will need to come from PCP and Surgeon but can try to help today and take a look at shoulder xrays to see if there is anything acutely abnormal on those. Could try prescribing a few pain pills until she sees surgeon on Friday. Will review her [employer] prescription monitoring program to see what medicine she has had prescribed and what she chronically takes. From review of her [employer] record she has not had opioid prescription since October 26 from her Orthopedic surgeon Dr. Jeffrey Rivas from [facility]. Progress Note #2: Time: 14:30 Progress Note On my review and personal interpretation of the three-view films of her left shoulder she has no acute bony abnormality. There is no dislocation. We will prescribe a few oxycodone pain pills for home and stressed importance of working with her primary care provider and orthopedic surgeon for pain control as the emergency department was not the ideal location to be seeking chronic pain control. Diagnostic Imaging Diagonstic Imaging: Xray Plain Films/CT/US/NM/MRI: other (left shoulder) Comments On my personal review and interpretation of the three-view films of her left shoulder she has no acute bony abnormality or dislocation. [facility] [place], [place] NAME: NORBERT DOMINGUEZ [facility] REC#: [id number] PT STATUS: DEP ER : 1945 PHYSICIAN: AUNG MACKENZIE MD ADMIT DATE: 12/25/21/ER FS Draft Date of Exam:12/25/21 SHOULDER 3 VIEW LEFT Indication: Left shoulder pain. Time of Exam: 2:32 PM 3 views left shoulder demonstrate normal glenohumeral and acromial clavicular alignment. Acromiohumeral space is normal. No fracture dislocation is seen. IMPRESSION: No acute bony abnormality is detected. Dictated on workstation # [id number] Dict: 12/25/21 1452 Trans: 12/25/21 1453 [facility] [id number] Interpreted by: LAMBERTO MILLER MD Electronically signed by: Reviewed: Reviewed by Me Departure Impression Primary Impression: Chronic left shoulder pain Disposition: 01 HOME, SELF-CARE Condition: Stable Departure-Patient Inst. Decision time for Depature: 14:31 Referrals: CHAMP MONTES MD (PCP) Primary Care Physician Patient Instructions: Shoulder Pain ED Add. Discharge Instructions: Try alternating ice and heat to the shoulder to help with pain. Keep appointment on FridayDecember 31 to see your surgeon about the shoulder. Continue to work with your PCP and Surgeon about your shoulder pain. All discharge instructions reviewed with patient and/or family. Voiced understanding. Scripts Oxycodone HCl (Oxycodone HCl) 5 Mg Tablet 5 MG PO Q6H PRN for PAIN-SEVERE (8-10) for 5 Days, #20 TAB 0 Refills Prov: AUNG MACKENZIE MD 12/25/21 AUNG MACKENZIE MD Dec 25, 2021 14:24
[2021-12-25] MEDS ORDERED: OXYC5TAB PO (14:31)
[2021-12-25 14:40] VITALS: BP 149/107
--- NOTE | 2021-12-25 14:53 | Diagnostic Imaging Report ---
Indication: Left shoulder pain. Time of Exam: 2:32 PM 3 views left shoulder demonstrate normal glenohumeral and acromial clavicular alignment. Acromiohumeral space is normal. No fracture dislocation is seen. IMPRESSION: No acute bony abnormality is detected. Dictated by: Dictated on workstation # [id number]
== END 2021-12-25 14:40 | disposition home or self-care (01) ==
LOC: EDUNIT# 14:06 → ER FS 14:08
DX: M25.512 Pain in left shoulder (principal); G89.29 Other chronic pain; Z88.5 Allergy status to narcotic agent; Z28.310 Unvaccinated for COVID-19
CPT/HCPCS: 73030